=== PATIENT | male | born 1945 | race Caucasian/White ===

== ENCOUNTER 2016-05-14 17:41 | Observation (INO) | payer MEDICARE ==
[~2016-05-14] VITALS: Ht 172.7 cm; Wt 87.5 kg
[~2016-05-14 17:41] MED LIST: ACET-703 PO; ALBU0.08 NEB; ASPI81TA81 PO; ATOR20TA15 PO; FLUT1INH INH; IPRA0.02 NEB; LISI-515 PO; LORA1TAB12 PO; MAXZTAB PO; OXYGEN INH; PLAV75TA29 PO; VENTAER INH; VERA120T3 PO
[2016-05-14 17:44] VITALS: BP 125/70; PULSE 127; RESP 14; TEMP 98.4; O2SAT 97
--- NOTE | 2016-05-14 18:42 | RADRPT ---
EXAM DATE/TIME: 05/14/2016 18:22 [place] COMPARISON: CHEST SINGLE AP, January 20, 2016, 9:26. INDICATIONS : SOB MEDICAL HISTORY : Hypertension. Chronic obstructive pulmonary disease. Chest mass. SURGICAL HISTORY : None. ENCOUNTER: Initial ACUITY: 1 day PAIN SCORE: 0/10 LOCATION: chest FINDINGS: There is vague infiltrate in the right lung base. Left lung appears grossly clear. No significant eff usion suspected. Cardiac contours are satisfactory. CONCLUSION: Mild right base parenchymal opacity Vidal Fotre MD on May 14, 2016 at 18:40 Board Certified Radiologist. This report was verified electronically.
[2016-05-14 19:25] VITALS: BP 124/72; PULSE 103; RESP 18; O2SAT 95
[2016-05-14 19:30] VITALS: O2SAT 97
[2016-05-14] MEDS ORDERED: RESP: ALBUTEROL 2.5 MG/IPRATROPIUM 0.5 MG NEB (SCH) NEB ONE (19:30)
[2016-05-14] MEDS ORDERED: chlordiazePOXIDE 25 MG CAP PO ONE (19:30)
--- NOTE | 2016-05-14 19:47 | PD ---
HPI Chief Complaint: Respiratory Distress Time Seen by Provider: 19:26 Travel History International Travel<30 days: No Contact w/Intl Traveler<30days: No Traveled to known affect area: No History of Present Illness HPI This 71-year-old man, presents to the emergency department complaining of wanting detox. His primary care doctor's Dr. Rodgers. Is a history of drinking too much in the past. He states for the past month he's been drinking constantly. He states that he decided today to stop drinking because it was "too much". He called and spoke to his doctor Dr. Rodgers who referred him to the emergency department. He also has a history of COPD, uses oxygen at night, and has had some trouble breathing recently. He states his mood has been down. He feels like he's been more irritable with his . He has had fleeting thoughts of hurting himself. He has never been treated for any mental health problems in the past. He last drank alcohol this afternoon. He's been drinking liquor, but one quart per day, mostly rum. He also smokes tobacco. History Past Medical History Narrative Medical Alcoholism COPD Peripheral vascular disease, status post recent stenting with Dr. yeager Hypertension Hyperlipidemia Social History Alcohol Use: Yes (Approx. twice a week with dinner ) Tobacco Use: Yes (1.5 PPD) Allergies-Medications (Allergen,Severity, Reaction): Coded Allergies: No Known Allergies (Verified , 05/14/16) Reported Meds & Prescriptions Reported Meds & Active Scripts Active Plavix (Clopidogrel Bisulfate) 75 Mg Tab 75 Mg PO DAILY Reported [Oxygen] 2 Liter INH DAILY Tylenol Extra Strength (Acetaminophen) 500 Mg Tab 500 Mg PO Q4-6H PRN Ventolin Hfa 18 GM Inh (Albuterol Sulfate) 90 Mcg/Act Aer 2 Puff INH Q4-6H PRN Ipratropium Neb (Ipratropium [place]) 0.5 Mg/2.5 Ml Amp 0.5 Mg NEB Q6HR NEB Breo Ellipta Inh (Fluticasone/Vilanterol) 100-25 Mcg/Act Inh 1 Puff INH DAILY Use daily at the same time. Albuterol Neb (Albuterol Sulfate) 2.5 Mg/3 Ml Neb 2.5 Mg NEB Q4HR NEB While awake Lorazepam 1 Mg Tab 1 Mg PO DAILY PRN Lisinopril 20 Mg Tab 20 Mg PO DAILY Atorvastatin (Atorvastatin Calcium) 20 Mg Tab 20 Mg PO HS Aspir-81 (Aspirin) 81 Mg Tabdr Maxzide-25 (Triamterene-Hydrochlorothiazide) 37.5-25 Mg Tab 1 Tab PO DAILY Verapamil (Verapamil HCl) 120 Mg Tab 120 Mg PO BID Review of Systems Except as stated in HPI: all other systems reviewed are Neg Physical Exam Narrative GENERAL: Well-appearing 71-year-old man, little bit tremulous, no acute distress. SKIN: Warm and dry. HEAD: Atraumatic. Normocephalic. EYES: Pupils equal and round. No scleral icterus. No injection or drainage. ENT: No nasal bleeding or discharge. Mucous membranes pink and moist. NECK: Trachea midline. No JVD. CARDIOVASCULAR: Regular rate and rhythm. No murmur appreciated. RESPIRATORY: No accessory muscle use. Lungs are clear to auscultation. No respiratory distress. GASTROINTESTINAL: Abdomen soft, non-tender, nondistended. Hepatic and splenic margins not palpable. MUSCULOSKELETAL: No obvious deformities. No edema. NEUROLOGICAL: Awake and alert. No obvious cranial nerve deficits. Motor grossly within normal limits. Normal speech. PSYCHIATRIC: Appropriate mood and affect; insight and judgment normal. Data Data Last Documented VS Vital Signs Date Time Temp Pulse Resp B/P Pulse Ox O2 Delivery O2 Flow Rate FiO2 05/14/16 19:30 97 Nasal Cannula 2.00 05/14/16 19:25 103 18 124/72 05/14/16 17:44 98.4 Orders Electrocardiogram (05/14/16 18:00) Chest, Single Ap (05/14/16 18:00) Chlordiazepoxide (Librium) (05/14/16 19:30) Albuterol-Ipratropium Neb (Duoneb Neb) (05/14/16 19:30) Complete Blood Count With Diff (05/14/16 19:26) Comprehensive Metabolic Panel (05/14/16 19:26) Alcohol (Ethanol) (05/14/16 19:26) Iv Access Insert/Monitor (05/14/16 19:26) Admit Order (Ed Use Only) (05/14/16 ) [facility] Medical Decision Making Medical Screen Exam Complete: Yes Emergency Medical Condition: Yes Interpretation(s) My review of EKG: Sinus rhythm at a rate of 79 with marked sinus arrhythmia, normal axis, normal intervals, no definite evidence of acute ischemia. Chest x-ray: Mild right base parenchymal opacity. Differential Diagnosis Alcoholism, alcohol withdrawal, COPD, significant exacerbation, substance- induced mood disorder, depression, other Narrative Course Medical decision making INITIAL: 71-year-old man who presents to the emergency department complaining of daily alcohol use, desire to quit drinking, some worsening mood with fleeting suicidal thoughts, worsening COPD symptoms. Has not really been taking his medicine since she's been drinking. He is referred to the emergency department by his primary physician. Given that he uses oxygen at night, he would not be a candidate for detox at [facility]. Primary complaint seems to be desire to quit drinking. No history of psychiatric disease. His has mild withdrawal symptoms now. We'll give by mouth Librium. We'll also give him a DuoNeb. I don't see evidence of significant COPD exacerbation. We'll discuss with [facility] hospitalist, reassess. FINAL: Spoke with Dr. Amaro, with the [facility] admitting team. They'll plan on admitting patient for evaluation and treatment for COPD, with alcohol withdrawal, and try to arrange for outpatient treatment options. Diagnosis Primary Impression: Alcohol withdrawal Qualified Code: F10.230 - Alcohol withdrawal, uncomplicated Additional Impression: COPD exacerbation Noel Roach MD May 14, 2016 19:47
[2016-05-14 20:27] LABS: AUTOMATED NEUTROPHIL # 5.4 TH/MM3 (1.8-7.7); BASOPHIL # 0.1 TH/MM3 (0-0.2); BASOPHIL % 0.8 % (0.0-2.0); EOSINOPHIL # 0.1 TH/MM3 (0-0.4); EOSINOPHIL % 1.4 % (0.0-4.0); HEMATOCRIT 39.3 % (39.0-51.0); HEMO FLAGS DIFF FINAL; LYMPH % 23.6 % (9.0-44.0); MEAN CELL VOLUME 95.2 FL (80.0-100.0); MEAN CORPUSCULAR HEMOGLOBIN 32.7 PG (27.0-34.0); MEAN CORPUSCULAR HGB CONC 34.3 % (32.0-36.0); MONO % 9.6 % (0.0-8.0); NEUT % 64.6 % (16.0-70.0); PLATELET COUNT 198 TH/MM3 (150-450); RED BLOOD COUNT 4.13 MIL/MM3 (4.50-5.90); WHITE BLOOD COUNT 8.3 TH/MM3 (4.0-11.0)
[2016-05-14 20:37] LABS: ANION GAP 11 MEQ/L (5-15)
[2016-05-14 20:40] LABS: ALKALINE PHOSPHATASE 88 U/L (45-117); ALT (GPT) 52 U/L (12-78); AST (GOT) 59 U/L (15-37); BICARBONATE 25.2 MEQ/L (21.0-32.0); BLOOD UREA NITROGEN 21 MG/DL (7-18); CHLORIDE 103 MEQ/L (98-107); GLOMERULAR FILTRATION RATE 80 ML/MIN (>89); SODIUM (NA) 139 MEQ/L (136-145); TOTAL BILIRUBIN ADULT 0.3 MG/DL (0.2-1.0)
--- NOTE | 2016-05-14 21:28 | HHI.HP ---
HPI Service [facility] Hospitalists Primary Care Physician Ryley Rodgers MD Admission Diagnosis alcohol withdrawal, COPD Chief Complaint: Excess alcohol use, Anxiety with agitation, COPD, med noncompliance Travel History International Travel<30 Days: No Contact w/Intl Traveler <30 Da: No Traveled to Known Affected Are: No History of Present Illness This 71-year-old man, presents to the emergency department complaining of wanting inpatient detox. I spoke with his primary care doctor, Dr. Rodgers who was not aware of his going to the ER. Patient reports someone in Dr. Rodgers's office directed him to the ER. Patient has chronic history of alcohol abuse but had been in remission. He states for the past month he's been drinking constantly. He started drinking at least 1 quart of rum per day on approximately April 10. He states that he decided today to stop drinking because it was "too much". He noted that he had become more anxious and agitated especially toward his . He does not like it when he is his way and he reports that he loves his . He admits to being anxious about a spot he found on his upper chest and also about some bloody salt in the toilet paper approximately a month ago. He denies any robi blood in the stool or dark tarry stools. He also has a history of COPD, uses oxygen at night, and has had some trouble breathing recently. He has not been using his inhalers as directed. He states his mood has been down. He feels like he's been more irritable with his . He has had fleeting thoughts of hurting himself but has not developed any plan of any sort. I asked him about harming himself, he denies any intent to do so. He last drank alcohol this afternoon. He says he feels a little tremulous at times but no other symptoms. He also smokes tobacco. Review of Systems Constitutional: COMPLAINS OF: Fatigue, DENIES: Diaphoretic episodes, Fever, Weight gain, Weight loss, Chills, Dizziness, Change in appetite, Night Sweats Endocrine: DENIES: Heat/cold intolerance, Polydipsia, Polyuria, Polyphagia Eyes: DENIES: Blurred vision, Diplopia, Eye inflammation, Eye pain, Vision loss , Photosensitivity, Double Vision Ears, nose, mouth, throat: DENIES: Tinnitus, Hearing loss, Vertigo, Nasal discharge, Oral lesions, Throat pain, Hoarseness, Ear Pain, Running Nose, Epistaxis, Sinus Pain, Toothache, Odynophagia Respiratory: COMPLAINS OF: Wheezing, Shortness of breath, DENIES: Apneas, Cough, Snoring, Hemoptysis, Sputum production Cardiovascular: COMPLAINS OF: Dyspnea on Exertion, DENIES: Chest pain, Palpitations, Syncope, PND, Lower Extremity Edema, Orthopnea, Claudication Gastrointestinal: COMPLAINS OF: BRB per rectum, GERD, DENIES: Abdominal pain, Black stools, Bloody stools, Constipation, Diarrhea, Nausea, Reflux, Vomiting, Difficulty Swallowing, Anorexia, See HPI Musculoskeletal: COMPLAINS OF: Joint pain Hematologic/lymphatic: DENIES: Bruising, Lymphadenopathy Immunologic/allergic: DENIES: Eczema, Urticaria Neurologic: DENIES: Abnormal gait, Headache, Localized weakness, Paresthesias, Seizures, Speech Problems, Tremor, Poor Balance Psychiatric: COMPLAINS OF: Anxiety, Depression, Agitation, DENIES: Confusion, Mood changes, Hallucinations, Homicidal Ideation, Delusions, History of Bipolar , History of Schizophrenia Past Family Social History Past Medical History Alcohol dependence Anxiety Atherosclerosis of aorta Peripheral arterial disease Reaves's esophagus COPD Chronic respiratory failure Lumbar degenerative disc disease GERD Hypertension Hyperlipidemia Hyperthyroidism Emphysema Past Surgical History Colonoscopy in 2006 revealed 4 polyps and some internal hemorrhoids EGD done in 2006 revealed gastritis and esophagitis Bilateral total hip replacement Angioplasty with atherectomy bilateral SFA Balloon angioplasty of left SFA and ORA in March 2016 Stenting left common iliac artery and right common iliac artery March 2016 Reported Medications These are reported meds but he has not been compliant over the last few weeks : [Oxygen] 2 Liter INH DAILY Tylenol Extra Strength (Acetaminophen) 500 Mg Tab 500 Mg PO Q4-6H PRN Ventolin Hfa 18 GM Inh (Albuterol Sulfate) 90 Mcg/Act Aer 2 Puff INH Q4-6H PRN Ipratropium Neb (Ipratropium [place]) 0.5 Mg/2.5 Ml Amp 0.5 Mg NEB Q6HR NEB Breo Ellipta Inh (Fluticasone/Vilanterol) 100-25 Mcg/Act Inh 1 Puff INH DAILY Use daily at the same time. Albuterol Neb (Albuterol Sulfate) 2.5 Mg/3 Ml Neb 2.5 Mg NEB Q4HR NEB While awake Lorazepam 1 Mg Tab 1 Mg PO DAILY PRN Lisinopril 20 Mg Tab 20 Mg PO DAILY Atorvastatin (Atorvastatin Calcium) 20 Mg Tab 20 Mg PO HS Aspir-81 (Aspirin) 81 Mg Tabdr Maxzide-25 (Triamterene-Hydrochlorothiazide) 37.5-25 Mg Tab 1 Tab PO DAILY Verapamil (Verapamil HCl) 120 Mg Tab 120 Mg PO BID Allergies: Coded Allergies: No Known Allergies (Verified , 05/14/16) Family History Noncontributory Social History Heavy alcohol use history over the last month drinking 1 quart of rum per day Smokes cigarettes one pack per day which he has done for 50 years Lives with his Retired from [employer] after 40 years Easily from [place], he moved to [place] in 1985 Physical Exam Vital Signs Vital Signs Date Time Temp Pulse Resp B/P Pulse Ox O2 Delivery O2 Flow Rate FiO2 05/14/16 19:30 97 Nasal Cannula 2.00 05/14/16 19:25 103 18 124/72 95 Room Air 05/14/16 17:44 98.4 127 14 125/70 97 Room Air Physical Exam GENERAL: This is a well-nourished, well-developed patient, in no apparent distress. Slightly anxious. Alert and oriented. No obvious tremor. SKIN: No rashes, ecchymoses or lesions. Cool and dry. HEAD: Atraumatic. Normocephalic. No temporal or scalp tenderness. EYES: Pupils equal round and reactive. Extraocular motions intact. No scleral icterus. No injection or drainage. ENT: Nose without bleeding, purulent drainage or septal hematoma. Throat without erythema, tonsillar hypertrophy or exudate. Uvula midline. Airway patent. NECK: Trachea midline. No JVD or lymphadenopathy. Supple, nontender, no meningeal signs. CARDIOVASCULAR: Regular rate and rhythm without murmurs, gallops, or rubs. RESPIRATORY: Clear to auscultation with slightly prolonged expiratory phase and few wheezes at the bases. Breath sounds equal bilaterally. GASTROINTESTINAL: Abdomen soft, non-tender, nondistended. No hepato-splenomegaly , or palpable masses. No guarding. Bowel sounds normal. MUSCULOSKELETAL: Extremities without clubbing, cyanosis, or edema. No joint tenderness, effusion, or edema noted. No calf tenderness. NEUROLOGICAL: Awake and alert. Cranial nerves II through XII intact. Motor and sensory grossly within normal limits. Five out of 5 muscle strength in all muscle groups. Normal speech. Laboratory Laboratory Tests Test 05/14/16 19:45 White Blood Count 8.3 Red Blood Count 4.13 Hemoglobin 13.5 Hematocrit 39.3 Mean Corpuscular Volume 95.2 Mean Corpuscular Hemoglobin 32.7 Mean Corpuscular Hemoglobin 34.3 Concent Red Cell Distribution Width 15.0 Platelet Count 198 Mean Platelet Volume 7.2 Neutrophils (%) (Auto) 64.6 Lymphocytes (%) (Auto) 23.6 Monocytes (%) (Auto) 9.6 Eosinophils (%) (Auto) 1.4 Basophils (%) (Auto) 0.8 Neutrophils # (Auto) 5.4 Lymphocytes # (Auto) 2.0 Monocytes # (Auto) 0.8 Eosinophils # (Auto) 0.1 Basophils # (Auto) 0.1 CBC Comment DIFF FINAL Differential Comment Sodium Level 139 Potassium Level 4.0 Chloride Level 103 Carbon Dioxide Level 25.2 Anion Gap 11 Blood Urea Nitrogen 21 Creatinine 0.93 Estimat Glomerular Filtration 80 Rate Random Glucose 89 Calcium Level 8.6 Total Bilirubin 0.3 Aspartate Amino Transf 59 (AST/SGOT) Alanine Aminotransferase 52 (ALT/SGPT) Alkaline Phosphatase 88 Total Protein 7.5 Albumin 4.0 Ethyl Alcohol Level 295 Result Diagram: 05/14/16194405/14/161944 Imaging Last 72 hours Impressions Chest X-Ray 05/14/16 1800 Signed Impressions: Service Date/Time: April 18:22 - CONCLUSION: Mild right base parenchymal opacity Vidal Forte MD Assessment and Plan Problem List: (1) Alcohol intoxication Status: Acute Plan: Blood alcohol level 295. No signs of active withdrawal but certainly is at risk as he has had withdrawal in the past. We'll initiate alcohol withdrawal protocol (2) COPD (chronic obstructive pulmonary disease) Status: Chronic Plan: Mild exacerbation likely associated with medication noncompliance. Duo nebs, steroids, supplemental oxygen. We'll add anabiotic given the chest x- ray finding. Of clinical pneumonia at this point. With his heavy drinking and GERD, however, he may have had aspiration at some point. (3) Hyperlipemia Status: Chronic Plan: Continue medication. (4) Hypertension Status: Chronic Plan: Blood pressure okay here. Continue to monitor. Initiate medication as needed. (5) Anxiety Status: Chronic Plan: Provide Ativan as needed. Would likely benefit from SSRI and psychiatric intervention as an outpatient. (6) PAD (peripheral artery disease) Status: Chronic Plan: Resume medication. Strongly encouraged him to stop smoking. Provide NicoDerm. Code Status Full Discussed Condition With Patient and ER physician Problem Qualifiers (1) Hyperlipemia: Qualified Code: E78.00 - Pure hypercholesterolemia (2) Hypertension: Qualified Code: I10 - Essential hypertension Jac Amaro PhD May 14, 2016 21:28
[2016-05-14 21:57] VITALS: BP 109/63; PULSE 110; RESP 18; O2SAT 96
[2016-05-14] MEDS ORDERED: THIAMINE HCL 200 MG/2 ML VIAL IM ONE (22:00)
[2016-05-14] MEDS: LORazepam 2 MG/ML VIAL IV PUSH PRN (22:03)
[2016-05-14] MEDS: methylPREDNISolone SOD SUCC 40 MG/1 ML VIAL IV PUSH SCH (23:16)
[2016-05-14] MEDS: SODIUM CHLOR 0.9% 1000 ML INJ 1,000 ML IV SCH (23:17)
[2016-05-14 23:38] VITALS: BP 96/50; PULSE 119
[2016-05-14] MEDS: DOXYCYCLINE HYCLATE 100 MG CAP PO SCH (23:55)
[2016-05-15] VITALS (14 sets, daily range): BP systolic 135–183; BP diastolic 71–106; PULSE 96–125; RESP 17–24; TEMP 97.1–98.3; O2SAT 92–96
[2016-05-15] MEDS: RESP: ALBUTEROL 2.5 MG/IPRATROPIUM 0.5 MG NEB (PRN) NEB ×6 (02:00→23:27)
[2016-05-15] MEDS: CLOPIDOGREL 75 MG TAB PO SCH (07:28)
[2016-05-15] MEDS: LISINOPRIL 20 MG TAB PO SCH (07:28)
[2016-05-15] MEDS: NICOTINE 21 MG/24 HR PATCH TD SCH (07:29)
--- NOTE | 2016-05-15 08:34 | HHI.PR ---
Subjective Remarks Pt very shaky this morning. He states that over the last month he has been drinking at least a bottle of rum per day He states that he gets very shakey in the morning but it improves once he starts drinking He denies any cough or SOB. He states that occasionally he has reflux Denies any dysphagia, fevers/chills Objective Vitals Vital Signs Date Time Temp Pulse Resp B/P Pulse Ox O2 Delivery O2 Flow Rate FiO2 05/15/16 03:31 97.2 113 20 151/71 95 05/15/16 01:33 97.1 97 20 135/77 94 05/15/16 01:09 97 Nasal Cannula 2 05/14/16 23:38 119 96/50 05/14/16 21:57 110 18 109/63 96 05/14/16 19:30 97 Nasal Cannula 2.00 05/14/16 19:25 103 18 124/72 95 Room Air 05/14/16 17:44 98.4 127 14 125/70 97 Room Air Result Diagram: 05/14/16194405/14/161944 Other Results Laboratory Tests Test 05/14/16 19:45 White Blood Count 8.3 TH/MM3 Red Blood Count 4.13 MIL/MM3 Hemoglobin 13.5 GM/DL Hematocrit 39.3 % Mean Corpuscular Volume 95.2 FL Mean Corpuscular Hemoglobin 32.7 PG Mean Corpuscular Hemoglobin 34.3 % Concent Red Cell Distribution Width 15.0 % Platelet Count 198 TH/MM3 Mean Platelet Volume 7.2 FL Neutrophils (%) (Auto) 64.6 % Lymphocytes (%) (Auto) 23.6 % Monocytes (%) (Auto) 9.6 % Eosinophils (%) (Auto) 1.4 % Basophils (%) (Auto) 0.8 % Neutrophils # (Auto) 5.4 TH/MM3 Lymphocytes # (Auto) 2.0 TH/MM3 Monocytes # (Auto) 0.8 TH/MM3 Eosinophils # (Auto) 0.1 TH/MM3 Basophils # (Auto) 0.1 TH/MM3 CBC Comment DIFF FINAL Differential Comment Sodium Level 139 MEQ/L Potassium Level 4.0 MEQ/L Chloride Level 103 MEQ/L Carbon Dioxide Level 25.2 MEQ/L Anion Gap 11 MEQ/L Blood Urea Nitrogen 21 MG/DL Creatinine 0.93 MG/DL Estimat Glomerular Filtration 80 ML/MIN Rate Random Glucose 89 MG/DL Calcium Level 8.6 MG/DL Total Bilirubin 0.3 MG/DL Aspartate Amino Transf 59 U/L (AST/SGOT) Alanine Aminotransferase 52 U/L (ALT/SGPT) Alkaline Phosphatase 88 U/L Total Protein 7.5 GM/DL Albumin 4.0 GM/DL Ethyl Alcohol Level 295 MG/DL Imaging Last 72 hours Impressions Chest X-Ray 05/14/16 1800 Signed Impressions: Service Date/Time: April 18:22 - CONCLUSION: Mild right base parenchymal opacity Vidal Forte MD Objective Remarks General: Very tremulous this morning Cardiac: Regular, tachy Chest: CTA Abd: +BS, soft ND/NT Ext: No edema A/P Problem List: (1) Alcohol intoxication Status: Acute Plan: - Pt presented to the ER wanting inpatient detox. - Blood alcohol level 295 at admission. - No signs of active withdrawal but certainly is at risk as he has had withdrawal in the past. - Librium 25mg po TID - Ativan PRN (2) COPD (chronic obstructive pulmonary disease) Status: Chronic Plan: - Mild exacerbation likely associated with medication noncompliance. - Duo nebs - Solu-Medrol - Breo Elipta - Supplemental oxygen. - CXR (05/14) --> Mild right base parenchymal opacity. - Pt was started on Doxycycline at admission secondary to chest x-ray finding and with his heavy drinking and GERD, he may have had aspiration at some point. (3) Hyperlipemia Status: Chronic Plan: - Continue medication. (4) Hypertension Status: Chronic Plan: Blood pressure okay here. Continue to monitor. Initiate medication as needed. (5) Anxiety Status: Chronic Plan: Provide Ativan as needed. Would likely benefit from SSRI and psychiatric intervention as an outpatient. (6) PAD (peripheral artery disease) Status: Chronic Plan: Resume medication. Strongly encouraged him to stop smoking. Provide NicoDerm. Assessment and Plan Patient examined. Assessment and plan formulated with Ana Norwood PA-C. I agree with the above. etoh abuse and now etoh/wd copd with mild exacerbation right lung inflitrate and possible pna Problem Qualifiers (1) Hyperlipemia: Qualified Code: E78.00 - Pure hypercholesterolemia (2) Hypertension: Qualified Code: I10 - Essential hypertension Ana Norwood May 15, 2016 08:34 Milan Bazzi MD May 15, 2016 20:42
[2016-05-15] MEDS: methylPREDNISolone SOD SUCC 40 MG/1 ML VIAL IV PUSH SCH ×2 (08:40→21:46)
[2016-05-15] MEDS: LORazepam 2 MG/ML VIAL IV PUSH PRN (08:40)
[2016-05-15] MEDS: REMOVE OLD NICODERM (NICOTINE) PATCH TD SCH (09:00)
[2016-05-15] MEDS ORDERED: chlordiazePOXIDE 25 MG CAP PO SCH (09:00)
[2016-05-15] MEDS: THIAMINE HCL 100 MG TAB PO SCH (09:14)
[2016-05-15] MEDS: MULTIVITAMIN TAB PO SCH (09:14)
[2016-05-15] MEDS: DOXYCYCLINE HYCLATE 100 MG CAP PO SCH (09:14)
[2016-05-15] MEDS: SODIUM CHLOR 0.9% 1000 ML INJ 1,000 ML IV SCH (09:14)
[2016-05-15] MEDS: FOLIC ACID 1 MG TAB PO SCH (09:14)
[2016-05-15] MEDS: FLUTICASONE 100 MCG/VILANTEROL 25 MCG INHALER INH SCH (09:14)
[2016-05-15] MEDS ORDERED: cloNIDine HCL 0.1 MG TAB PO PRN (11:30)
[2016-05-15] MEDS: chlordiazePOXIDE 25 MG CAP PO SCH ×2 (11:45→18:24)
--- NOTE | 2016-05-15 16:32 | EKG ---
Date Performed: 05/14/2016 Time Performed: 18:04:59 PTAGE: 71 years EKG: Sinus rhythm WITH MARKED SINUS ARRHYTHMIA BORDERLINE ECG PREVIOUS TRACING : 04/09/2016 07.33 Compared to prior tracing no significant change DOCTOR: Grady Sharma Interpretating Date/Time 05/15/2016 16:30:27
[2016-05-15] MEDS: cloNIDine HCL 0.1 MG TAB PO PRN ×2 (17:24→21:46)
[2016-05-15] MEDS: ATORVASTATIN 20 MG TAB PO SCH (21:46)
[2016-05-16] VITALS (9 sets, daily range): BP systolic 133–164; BP diastolic 77–97; PULSE 90–120; RESP 19; TEMP 96.9–98.4; O2SAT 94–98
[2016-05-16] MEDS: chlordiazePOXIDE 25 MG CAP PO SCH ×4 (01:03→18:16)
[2016-05-16] MEDS: RESP: ALBUTEROL 2.5 MG/IPRATROPIUM 0.5 MG NEB (PRN) NEB ×4 (03:42→16:25)
[2016-05-16] MEDS: MULTIVITAMIN TAB PO SCH (08:40)
[2016-05-16] MEDS: THIAMINE HCL 100 MG TAB PO SCH (08:40)
[2016-05-16] MEDS: FOLIC ACID 1 MG TAB PO SCH (08:41)
[2016-05-16] MEDS: LEVOFLOXACIN 500 MG TAB PO SCH (08:41)
[2016-05-16] MEDS: CLOPIDOGREL 75 MG TAB PO SCH (08:41)
[2016-05-16] MEDS: LISINOPRIL 20 MG TAB PO SCH (08:41)
[2016-05-16] MEDS: NICOTINE 21 MG/24 HR PATCH TD SCH (08:41)
[2016-05-16] MEDS: methylPREDNISolone SOD SUCC 40 MG/1 ML VIAL IV PUSH SCH (08:44)
[2016-05-16] MEDS: FLUTICASONE 100 MCG/VILANTEROL 25 MCG INHALER INH SCH (08:46)
[2016-05-16] MEDS: REMOVE OLD NICODERM (NICOTINE) PATCH TD SCH (08:53)
--- NOTE | 2016-05-16 11:04 | HHI.PR ---
Subjective Remarks doing ok. still tremulous. eating food. getting up to bathroom Objective Vitals heart reg lung cta abd s/nt ext no edema tremulous Vital Signs Date Time Temp Pulse Resp B/P Pulse Ox O2 Delivery O2 Flow Rate FiO2 05/16/16 08:54 97.7 103 140/77 96 05/16/16 07:55 98 Nasal Cannula 2.00 05/16/16 04:00 96.9 102 19 158/77 95 05/16/16 00:00 98.3 105 19 164/97 98 05/15/16 20:49 96 Nasal Cannula 2.00 05/15/16 20:02 96 05/15/16 20:00 97.7 107 17 169/85 96 05/15/16 18:48 115 05/15/16 18:26 160/90 05/15/16 16:36 98.1 115 24 177/101 92 05/15/16 12:35 98.0 122 22 179/98 92 05/15/16 12:24 143/90 05/15/16 11:44 182/99 05/15/16 05/15/16 05/16/16 15:00 23:00 07:00 Intake Total 480 ml Output Total 2250 ml 850 ml Balance -1770 ml -850 ml Intake Oral 480 ml Output Urine Total 2250 ml 850 ml # Bowel Movements 1 Result Diagram: 05/14/16194405/14/161944 Imaging Last 72 hours Impressions Chest X-Ray 05/14/16 1800 Signed Impressions: Service Date/Time: April 18:22 - CONCLUSION: Mild right base parenchymal opacity Vidal Forte MD A/P Problem List: (1) Alcohol intoxication Status: Acute Plan: - Pt presented to the ER wanting inpatient detox. - He is currently going through etoh w/d cont librium and prn ativan. taper starting in AM. prn clonidine for bp plan for d/c home Wednesday. (2) COPD (chronic obstructive pulmonary disease) Status: Acute Plan: - mild exacerbation - abx for right lung infiltrate/pna...?aspiration. cont nebs/wean steroids. o2 (3) Hyperlipemia Status: Chronic Plan: - Continue medication. (4) Hypertension Status: Chronic Plan: Blood pressure okay here. Continue to monitor. Initiate medication as needed. (5) Anxiety Status: Chronic Plan: Provide Ativan as needed. Would likely benefit from SSRI and psychiatric intervention as an outpatient. (6) PAD (peripheral artery disease) Status: Chronic Plan: Resume medication. Strongly encouraged him to stop smoking. Provide NicoDerm. Problem Qualifiers (1) Hyperlipemia: Qualified Code: E78.00 - Pure hypercholesterolemia (2) Hypertension: Qualified Code: I10 - Essential hypertension Milan Bazzi MD May 16, 2016 11:04
[2016-05-16] MEDS: predniSONE 20 MG TAB PO SCH (21:07)
[2016-05-16] MEDS: ATORVASTATIN 20 MG TAB PO SCH (21:07)
[2016-05-17] VITALS (7 sets, daily range): BP systolic 128–162; BP diastolic 78–88; PULSE 77–108; RESP 19–28; TEMP 98–98.3; O2SAT 93–99
[2016-05-17] MEDS: chlordiazePOXIDE 25 MG CAP PO SCH ×4 (01:31→19:04)
[2016-05-17] MEDS: RESP: ALBUTEROL 2.5 MG/IPRATROPIUM 0.5 MG NEB (PRN) NEB ×4 (03:02→22:13)
[2016-05-17] MEDS: REMOVE OLD NICODERM (NICOTINE) PATCH TD SCH (09:00)
[2016-05-17] MEDS: THIAMINE HCL 100 MG TAB PO SCH (09:13)
[2016-05-17] MEDS: NICOTINE 21 MG/24 HR PATCH TD SCH (09:13)
[2016-05-17] MEDS: MULTIVITAMIN TAB PO SCH (09:14)
[2016-05-17] MEDS: FOLIC ACID 1 MG TAB PO SCH (09:14)
[2016-05-17] MEDS: LISINOPRIL 20 MG TAB PO SCH (09:14)
[2016-05-17] MEDS: CLOPIDOGREL 75 MG TAB PO SCH (09:14)
[2016-05-17] MEDS: predniSONE 20 MG TAB PO SCH ×2 (09:15→21:17)
[2016-05-17] MEDS: FLUTICASONE 100 MCG/VILANTEROL 25 MCG INHALER INH SCH (09:15)
[2016-05-17] MEDS: LEVOFLOXACIN 500 MG TAB PO SCH (09:15)
--- NOTE | 2016-05-17 13:08 | HHI.PR ---
Subjective Remarks improving. needs to ambulate. Objective Vitals heart reg lung cta abd sn/t ext no edema mild tremors Vital Signs Date Time Temp Pulse Resp B/P Pulse Ox O2 Delivery O2 Flow Rate FiO2 05/17/16 08:00 83 05/17/16 07:51 Nasal Cannula 2.00 05/17/16 07:37 98.0 88 19 162/80 93 05/17/16 03:34 98.2 77 19 148/80 93 05/17/16 02:55 98 Nasal Cannula 2.00 05/16/16 23:30 98.2 98 19 133/88 95 05/16/16 22:29 90 05/16/16 19:06 98.4 120 19 136/78 94 05/16/16 16:37 97.8 100 19 136/86 94 05/16/16 15:21 93 Result Diagram: 05/14/16194405/14/161944 Imaging Last 72 hours Impressions Chest X-Ray 05/14/16 1800 Signed Impressions: Service Date/Time: April 18:22 - CONCLUSION: Mild right base parenchymal opacity Vidal Forte MD A/P Problem List: (1) Alcohol intoxication Status: Acute Plan: - Pt presented to the ER wanting inpatient detox. - He is currently going through etoh w/d wean librium and prn ativan. start taper and d/c home in AM if hr controlled Pt eval no etoh discussed prn clonidine for bp (2) COPD (chronic obstructive pulmonary disease) Status: Acute Plan: - mild exacerbation - abx for right lung infiltrate/pna...?aspiration. cont nebs/wean steroids. o2 (3) Hyperlipemia Status: Chronic Plan: - Continue medication. (4) Hypertension Status: Chronic Plan: Blood pressure okay here. Continue to monitor. Initiate medication as needed. (5) Anxiety Status: Chronic Plan: Provide Ativan as needed. Would likely benefit from SSRI and psychiatric intervention as an outpatient. (6) PAD (peripheral artery disease) Status: Chronic Plan: Resume medication. Strongly encouraged him to stop smoking. Provide NicoDerm. Problem Qualifiers (1) Hyperlipemia: Qualified Code: E78.00 - Pure hypercholesterolemia (2) Hypertension: Qualified Code: I10 - Essential hypertension Milan Bazzi MD May 17, 2016 13:08
[2016-05-17] MEDS: ATORVASTATIN 20 MG TAB PO SCH (21:17)
[2016-05-18] VITALS (7 sets, daily range): BP systolic 120–162; BP diastolic 59–92; PULSE 86–109; RESP 18–20; TEMP 97.5–98.8; O2SAT 94–99
[2016-05-18] MEDS: RESP: ALBUTEROL 2.5 MG/IPRATROPIUM 0.5 MG NEB (PRN) NEB (04:04)
[2016-05-18] MEDS: LEVOFLOXACIN 500 MG TAB PO SCH (08:08)
[2016-05-18] MEDS: THIAMINE HCL 100 MG TAB PO SCH (08:08)
[2016-05-18] MEDS: LISINOPRIL 20 MG TAB PO SCH (08:08)
[2016-05-18] MEDS: MULTIVITAMIN TAB PO SCH (08:08)
[2016-05-18] MEDS: CLOPIDOGREL 75 MG TAB PO SCH (08:08)
[2016-05-18] MEDS: FOLIC ACID 1 MG TAB PO SCH (08:08)
[2016-05-18] MEDS: predniSONE 20 MG TAB PO SCH (08:08)
[2016-05-18] MEDS: NICOTINE 21 MG/24 HR PATCH TD SCH (08:09)
[2016-05-18] MEDS: REMOVE OLD NICODERM (NICOTINE) PATCH TD SCH (08:09)
[2016-05-18] MEDS: FLUTICASONE 100 MCG/VILANTEROL 25 MCG INHALER INH SCH (08:10)
[2016-05-18] MEDS ORDERED: chlordiazePOXIDE 25 MG CAP PO SCH (09:00)
[2016-05-18] MEDS ORDERED: PRED20 PO (12:12)
[2016-05-18] MEDS ORDERED: LEVA500T PO (12:12)
[2016-05-18] MEDS ORDERED: FOLI1TAB4 PO (12:12)
[2016-05-18] MEDS ORDERED: LORA-474 PO (12:12)
[2016-05-18] MEDS ORDERED: THERTAB15 PO (12:12)
[2016-05-18] MEDS ORDERED: LEXA10TA PO (12:21)
--- NOTE | 2016-05-18 12:29 | HHI.DS ---
Discharge Summary Admission Date May 14, 2016 at 19:58 Admitting Diagnosis alcohol withdrawal, COPD (1) Alcohol intoxication Diagnosis: Principal (2) COPD (chronic obstructive pulmonary disease) Diagnosis: Principal (3) Hyperlipemia Diagnosis: Secondary (4) Hypertension Diagnosis: Secondary (5) Anxiety Diagnosis: Secondary (6) PAD (peripheral artery disease) Diagnosis: Secondary Brief History This 71-year-old man, presents to the emergency department complaining of wanting inpatient detox. I spoke with his primary care doctor, Dr. Rodgers who was not aware of his going to the ER. Patient reports someone in Dr. Rodgers's office directed him to the ER. Patient has chronic history of alcohol abuse but had been in remission. He states for the past month he's been drinking constantly. He started drinking at least 1 quart of rum per day on approximately April 10. He states that he decided today to stop drinking because it was "too much". He noted that he had become more anxious and agitated especially toward his . He does not like it when he is his way and he reports that he loves his . He admits to being anxious about a spot he found on his upper chest and also about some bloody salt in the toilet paper approximately a month ago. He denies any robi blood in the stool or dark tarry stools. He also has a history of COPD, uses oxygen at night, and has had some trouble breathing recently. He has not been using his inhalers as directed. He states his mood has been down. He feels like he's been more irritable with his . He has had fleeting thoughts of hurting himself but has not developed any plan of any sort. I asked him about harming himself, he denies any intent to do so. He last drank alcohol this afternoon. He says he feels a little tremulous at times but no other symptoms. He also smokes tobacco. CBC/BMP: 05/14/16194405/14/161944 Imaging Last Impressions Chest X-Ray 05/14/16 1800 Signed Impressions: Service Date/Time: April 18:22 - CONCLUSION: Mild right base parenchymal opacity Vidal Forte MD PE at Discharge GENERAL: This is a well-nourished, well-developed patient, in no apparent distress. CARDIOVASCULAR: Regular rate and rhythm without murmurs, gallops, or rubs. RESPIRATORY: Clear to auscultation. Breath sounds equal bilaterally. No wheezes , rales, or rhonchi. GASTROINTESTINAL: Abdomen soft, non-tender, nondistended. Normal active bowel sounds MUSCULOSKELETAL: Extremities without clubbing, cyanosis, or edema. NEURO: Alert & Oriented x4 to person, place, time, situation. Moves all ext x4 Hospital Course (1) Alcohol intoxication Status: Acute Plan: - Pt presented to the ER wanting inpatient detox. - Pt was treated with scheduled librium which was tapered and prn ativan - Pt reevaluated by Dr. Zaheer Murcia DO on 05/18/16 - Pt with mild tremulous arms, per nursing much improved from admission - Pt adamant that he wants discharge to home today. - Case d/w CP Case Mgmt & will arrange outpt f/u with [facility] for outpt alcohol detox program - will discharge home with a small supply of ativan for withdrawal symptoms, #10 (2) COPD (chronic obstructive pulmonary disease) Status: Acute Plan: - mild exacerbation - complete 5d course of PO levaquin at home - complete prednisone taper at home - continue prn O2, pt has O2 set up at home and wears it at night. - Pt's oxygen level with O2 removed was 96% (3) Hyperlipemia Status: Chronic Plan: - Continue medication. (4) Hypertension Status: Chronic Plan: Blood pressure okay here. Continue to monitor. Initiate medication as needed. (5) Anxiety - start lexapro 10mg daily - ativan prn - f/u with [facility] (6) PAD (peripheral artery disease) Status: Chronic Plan: Resume medication. Strongly encouraged him to stop smoking. Provide NicoDerm. Pt Condition on Discharge: Stable Discharge Disposition: Discharge Home Discharge Instructions DIET: Follow Instructions for: Heart Healthy Diet Activities you can perform: Regular-No Restrictions Follow up Referrals: PCP Follow-up - [address] Ryley Rodgers Psychiatry Adult with [facility] New Medications: Escitalopram (Lexapro) 10 Mg Tab 10 MG PO DAILY depression #30 Ref 0 TAB Lorazepam (Ativan) 1 Mg Tab 1 MG PO Q6H PRN ANXIETY AND/OR AGITATION #10 Ref 0 TAB Folic Acid (Folate) 1 Mg Tab 1 MG PO DAILY etoh #30 Ref 0 TAB Levofloxacin (Levaquin) 500 Mg Tab 500 MG PO DAILY copd #2 Ref 0 TAB Multiple Vitamin (Thera/Beta-Carotene) 1 Tab Tab 1 TAB PO DAILY etoh #30 Ref 0 TAB Prednisone (Prednisone) 20 Mg Tab 20 MG PO BID one tab bid x 3d, then one tab daily x 3d, then 1/2 tab daily x 3d , then stop copd #11 TAB Continued Medications: Acetaminophen (Tylenol Extra Strength) 500 Mg Tab 500 MG PO Q4-6H PRN PAIN Ref 0 TAB Albuterol 18 GM Inh (Ventolin Hfa 18 GM Inh) 90 Mcg/Act Aer 2 PUFF INH Q4-6H PRN SHORTNESS OF BREATH #1 Ref 0 INHALER Albuterol Neb (Albuterol Neb) 2.5 Mg/3 Ml Neb 2.5 MG NEB Q4HR NEB While awake Breathing Treatment #60 Ref [address] (Aspir-81) 81 Mg Tabdr Atorvastatin (Atorvastatin) 20 Mg Tab 20 MG PO HS Cholesterol Management #30 Ref 0 TAB Clopidogrel (Plavix) 75 Mg Tab 75 MG PO DAILY pad #30 Ref 11 TAB Fluticasone-Vilanterol Inh (Breo Ellipta Inh) 100-25 Mcg/Act Inh 1 PUFF INH DAILY Use daily at the same time. #1 Ref 0 INHALER Ipratropium Neb (Ipratropium Neb) 0.5 Mg/2.5 Ml Amp 0.5 MG NEB Q6HR NEB Breathing Treatment Ref 0 NEBULE Lisinopril (Lisinopril) 20 Mg Tab 20 MG PO DAILY #30 Ref 0 TAB Lorazepam (Lorazepam) 1 Mg Tab 1 MG PO DAILY PRN ANXIETY Ref 0 TAB Triamterene-Hydrochlorothiazide (Maxzide-25) 37.5-25 Mg Tab 1 TAB PO DAILY #30 Ref 0 TAB Verapamil (Verapamil) 120 Mg Tab 120 MG PO BID #60 Ref 0 TAB ([Oxygen]) 2 LITER INH DAILY Zaheer Murcia DO May 18, 2016 12:29
--- NOTE | 2016-05-18 12:30 | HHI.DCPOC ---
Discharge Care Plan Diagnosis: (1) COPD (chronic obstructive pulmonary disease) (2) Alcohol withdrawal Goals to Promote Your Health * To prevent worsening of your condition and complications * To maintain your health at the optimal level Directions to Meet Your Goals Take your medications as prescribed Follow your dietary instruction Follow activity as directed Keep your appointments as scheduled Take your immunizations and boosters as scheduled If your symptoms worsen call your PCP, if no PCP go to Urgent Care Center or Emergency Room Smoking is Dangerous to Your Health. Avoid second hand smoke Call the 24-hour hour crisis hotline for domestic abuse at Zaheer Murcia DO May 18, 2016 12:30
== END 2016-05-18 14:59 | disposition home or self-care (01) ==
LOC: NEPC 17:41 → NEDA 19:58 → NEPFCDU 05-15 01:30
PROVIDERS: ADMIT Hospitalist; ATTEND Hospitalist
DX: F10.229 Alcohol dependence with intoxication, unspecified (principal); Y90.8 Blood alcohol level of 240 mg/100 ml or more; J44.1 Chronic obstructive pulmonary disease with (acute) exacerbation; I10 Essential (primary) hypertension; F41.9 Anxiety disorder, unspecified; Z91.14 Patient's other noncompliance with medication regimen; I70.0 Atherosclerosis of aorta; I73.9 Peripheral vascular disease, unspecified; J96.10 Chronic respiratory failure, unspecified whether with hypoxia or hypercapnia; F17.210 Nicotine dependence, cigarettes, uncomplicated; E78.5 Hyperlipidemia, unspecified; Z99.81 Dependence on supplemental oxygen
CPT/HCPCS: 71010; 80053; 80320; 85025; 93005; 94640; 94664; 97163; 99285; G0378; G8987; G8988; J2060; J2920; J3411; J7030; J7512

== ENCOUNTER 2016-06-17 11:55 | Inpatient (IN) | payer MEDICARE ==
[~2016-06-17] VITALS: Ht 172.7 cm; Wt 86.9 kg
[~2016-06-17 11:55] MED LIST changes: +FOLI1TAB4 PO; +LEVA500T PO; +LEXA10TA PO; +LORA-474 PO; +PRED20 PO; +THERTAB15 PO
[2016-06-17] MEDS ORDERED: SODIUM CHLOR 0.9% 1000 ML INJ 1,000 ML IV SCH ×2 (12:08→14:15)
[2016-06-17 12:15] VITALS: BP 88/50; PULSE 83; RESP 18; TEMP 98.2; O2SAT 96
--- NOTE | 2016-06-17 12:15 | PD ---
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 The patient states he was seen for routine clinic follow-up by Dr. Yeager today for his bilateral common iliac artery stenting done in March and his blood pressure was low so they brought him here for evaluation. The patient states that for the past 5 days he has had chills, "shakiness" and slight lightheadedness. States that 5 days ago Wednesday he did accidentally take his blood pressure medication twice in one evening because he forgot that he had already taken it. States that he in turn skipped his blood pressure medication on Wednesday. States that since then he has been taking his medication per usual. States that 5 days ago he had some mild increase in shortness of breath, states that since then he is short of breath but he feels he is not more short of breath than usual. Denies fever, chest pain, nausea, vomiting, abdominal pain, dizziness, numbness or tingling, weakness. States he has had some increased urinary frequency over the past 2 days. He also mentions that he's had a pruritic rash on his chest for about 3 weeks that he has been applying over the counter cream with improvement. No other complaints. PCP Dr. Rodgers. PFS Past Medical History Hx Anticoagulant Therapy: Yes Arthritis: Yes Asthma: No Autoimmune Disease: No Blood Disorders: No Anxiety: Yes Depression: No Heart Rhythm Problems: No Cancer: Yes (SKIN CA) Cardiovascular Problems: Yes High Cholesterol: Yes Chemotherapy: No Chest Pain: No Congestive Heart Failure: No COPD: Yes (on 2L NC at home.) Cerebrovascular Accident: No Diabetes: No Diminished Hearing: No Endocrine: No Gastrointestinal Disorders: No GERD: Yes Glaucoma: No Genitourinary: No Headaches: No Hepatitis: No Hiatal Hernia: No Hypertension: Yes Immune Disorder: No Implanted Vascular Access Dvce: Yes Kidney Stones: No Musculoskeletal: Yes Neurologic: Yes (spinal stenosis w/ LE weakness, B/B incontinence) Psychiatric: No Reproductive: No Respiratory: Yes Integumentary: No Immunizations Current: Yes Migraines: No Myocardial Infarction: No Radiation Therapy: No Renal Failure: No Seizures: No Sickle Cell Disease: No Sleep Apnea: No Thyroid Disease: Yes (HYPERTHYROID) Ulcer: No Past Surgical History Abdominal Surgery: Yes (Hernia repair w/ mesh.) AICD: No Appendectomy: No Arteriovenous Shunt: No Body Medical Devices: Stents LE's, BL hips Cardiac Surgery: Yes (Bilateral lower extremity vascular stents) Cholecystectomy: No Ear Surgery: No Endocrine Surgery: No Eye Surgery: No Genitourinary Surgery: No Gynecologic Surgery: No Insulin Pump: No Joint Replacement: Yes (BL hips) Neurologic Surgery: No Oral Surgery: No Pacemaker: No Thoracic Surgery: Yes Other Surgery: Yes (Nodule removed from vocal cords, stent left leg) Social History Alcohol Use: Yes (Approx. twice a week with dinner ) Tobacco Use: Yes (1.5 PPD) Substance Use: No Allergies-Medications (Allergen,Severity, Reaction): Coded Allergies: No Known Allergies (Verified , 05/14/16) Reported Meds & Prescriptions Reported Meds & Active Scripts Active Lexapro (Escitalopram Oxalate) 10 Mg Tab 10 Mg PO DAILY Ativan (Lorazepam) 1 Mg Tab 1 Mg PO Q6H PRN Thera/Beta-Carotene (Multiple Vitamin) 1 Tab Tab 1 Tab PO DAILY Folate (Folic Acid) 1 Mg Tab 1 Mg PO DAILY Prednisone 20 Mg Tab 20 Mg PO BID one tab bid x 3d, then one tab daily x 3d, then 1/2 tab daily x 3d, then stop Plavix (Clopidogrel Bisulfate) 75 Mg Tab 75 Mg PO DAILY Reported [Oxygen] 2 Liter INH DAILY Tylenol Extra Strength (Acetaminophen) 500 Mg Tab 500 Mg PO Q4-6H PRN Ventolin Hfa 18 GM Inh (Albuterol Sulfate) 90 Mcg/Act Aer 2 Puff INH Q4-6H PRN Ipratropium Neb (Ipratropium Hutchinson) 0.5 Mg/2.5 Ml Amp 0.5 Mg NEB Q6HR NEB Breo Ellipta Inh (Fluticasone/Vilanterol) 100-25 Mcg/Act Inh 1 Puff INH DAILY Use daily at the same time. Albuterol Neb (Albuterol Sulfate) 2.5 Mg/3 Ml Neb 2.5 Mg NEB Q4HR NEB While awake Lorazepam 1 Mg Tab 1 Mg PO DAILY PRN Lisinopril 20 Mg Tab 20 Mg PO DAILY Atorvastatin (Atorvastatin Calcium) 20 Mg Tab 20 Mg PO HS Aspir-81 (Aspirin) 81 Mg Tabdr 81 Mg PO Maxzide-25 (Triamterene-Hydrochlorothiazide) 37.5-25 Mg Tab 1 Tab PO DAILY Verapamil (Verapamil HCl) 120 Mg Tab 120 Mg PO BID Review of Systems Except as stated in HPI: all other systems reviewed are Neg Physical Exam Narrative GENERAL: Well-nourished and well-developed pleasant male patient in no acute distress who is nontoxic appearing. SKIN: Warm and dry. HEAD: Normocephalic and atraumatic. EYES: No injection, drainage, or hyphema noted. PERRLA. EOMI. ENT: No nasal drainage noted. Oropharynx is clear. NECK: Supple and the trachea is midline. CARDIOVASCULAR: Regular rate and rhythm. RESPIRATORY: Breath sounds are equal bilaterally with no accessory muscle use, wheezing, rhonchi, or crackles. GASTROINTESTINAL: Abdomen is soft, non-tender, and nondistended. MUSCULOSKELETAL: No obvious deformities, swelling, cyanosis, or ecchymosis is present throughout the upper and lower extremities. Patient has full range of motion without any signs of neurovascular compromise. NEUROLOGICAL: Awake, alert, and oriented. Normal speech and gait. Cranial nerves are grossly intact. Data Data Last Documented VS Vital Signs Date Time Temp Pulse Resp B/P Pulse Ox O2 Delivery O2 Flow Rate FiO2 06/17/16 12:48 59 16 98/55 97 Room Air 06/17/16 12:15 98.2 Orders Complete Blood Count With Diff (06/17/16 12:08) Comprehensive Metabolic Panel (06/17/16 12:08) Prothrombin Time / Inr (Pt) (06/17/16 12:08) Act Partial Throm Time (Ptt) (06/17/16 12:08) Lactic Acid Sepsis Protocol (06/17/16 12:08) Urinalysis - C+S If Indicated (06/17/16 12:08) Influenzae A/B Antigen (06/17/16 12:08) Blood Culture (06/17/16 12:08) Chest, Single Ap (06/17/16 12:08) Blood Glucose (06/17/16 12:08) Ecg Monitoring (06/17/16 12:08) Iv Access Insert/Monitor (06/17/16 12:08) Oximetry (06/17/16 12:08) Oxygen Administration (06/17/16 12:08) Sodium Chlor 0.9% 1000 Ml Inj (Ns 1000 M (06/17/16 12:08) B-Type Natriuretic Peptide (06/17/16 12:08) Troponin I (06/17/16 12:08) Sodium Chlor 0.9% 1000 Ml Inj (Ns 1000 M (06/17/16 14:15) Ns + Kcl 20 Meq Inj (Ns + Kcl 20 Meq Inj (06/17/16 14:30) Complete Blood Count With Diff (06/18/16 06:00) Basic Metabolic Panel (Bmp) (06/18/16 06:00) Magnesium (Mg) (06/18/16 06:00) Admit To Inpatient (06/17/16 ) Code Status (06/17/16 14:27) Vital Signs (Adult) Q4H (06/17/16 14:27) Activity Oob With Assistance (06/17/16 14:27) Tire Fabricator / Telemetry .CONTINUOUS (06/17/16 14:27) Diet Regular Basic (06/17/16 Dinner) Sodium Chloride 0.9% Flush (Ns Flush) (06/17/16 14:30) Sodium Chloride 0.9% Flush (Ns Flush) (06/17/16 21:00) Acetaminophen (Tylenol) (06/17/16 14:30) Ondansetron Inj (Zofran Inj) (06/17/16 14:30) Bisacodyl Supp (Dulcolax Supp) (06/17/16 14:30) Magnesium Hydroxide Liq (Milk Of Magnesi (06/17/16 14:30) Electrocardiogram (06/17/16 14:27) Pt Request For Service (06/17/16 14:27) Scd Bilateral/Knee High ILIANA.BID (06/17/16 14:27) Naloxone Inj (Narcan Inj) (06/17/16 14:30) Inpatient Certification (06/17/16 ) Atorvastatin (Lipitor) (06/17/16 21:00) Clopidogrel (Plavix) (06/18/16 09:00) Escitalopram (Lexapro) (06/18/16 09:00) Fluticason-Vilanter 100-25 Inh (Breo Ell (06/18/16 09:00) (Nf) [Oxygen] (06/17/16 14:30) Albuterol-Ipratropium Neb (Duoneb Neb) (06/17/16 14:45) Ceftriaxone Inj (Rocephin Inj) (06/17/16 14:45) Labs Laboratory Tests Test 06/17/16 06/17/16 12:35 13:45 White Blood Count 15.6 TH/MM3 Red Blood Count 3.48 MIL/MM3 Hemoglobin 11.0 GM/DL Hematocrit 32.6 % Mean Corpuscular Volume 93.7 FL Mean Corpuscular Hemoglobin 31.5 PG Mean Corpuscular Hemoglobin 33.6 % Concent Red Cell Distribution Width 15.3 % Platelet Count 213 TH/MM3 Mean Platelet Volume 7.9 FL Neutrophils (%) (Auto) 85.5 % Lymphocytes (%) (Auto) 4.5 % Monocytes (%) (Auto) 9.6 % Eosinophils (%) (Auto) 0.2 % Basophils (%) (Auto) 0.2 % Neutrophils # (Auto) 13.3 TH/MM3 Lymphocytes # (Auto) 0.7 TH/MM3 Monocytes # (Auto) 1.5 TH/MM3 Eosinophils # (Auto) 0.0 TH/MM3 Basophils # (Auto) 0.0 TH/MM3 CBC Comment DIFF FINAL Differential Comment Prothrombin Time 10.5 SEC Prothromb Time International 1.0 RATIO Ratio Activated Partial 31.1 SEC Thromboplast Time Sodium Level 133 MEQ/L Potassium Level 3.3 MEQ/L Chloride Level 99 MEQ/L Carbon Dioxide Level 19.9 MEQ/L Anion Gap 14 MEQ/L Blood Urea Nitrogen 38 MG/DL Creatinine 2.19 MG/DL Estimat Glomerular Filtration 30 ML/MIN Rate Random Glucose 105 MG/DL Calcium Level 8.0 MG/DL Total Bilirubin 0.5 MG/DL Aspartate Amino Transf 12 U/L (AST/SGOT) Alanine Aminotransferase 14 U/L (ALT/SGPT) Alkaline Phosphatase 62 U/L Troponin I LESS THAN 0.02 NG/ML B-Type Natriuretic Peptide 30 PG/ML Total Protein 6.5 GM/DL Albumin 2.8 GM/DL Lactic Acid Level 2.2 mmol/L MDM Medical Decision Making Medical Screen Exam Complete: Yes Emergency Medical Condition: Yes Differential Diagnosis Dehydration versus acute kidney injury versus sepsis versus medication noncompliance Narrative Course 71-year-old male is brought to the emergency department for evaluation of hypotension. Patient is afebrile. He is initially noted to be hypotensive with a blood pressure 88/50 years and the emergency department. Otherwise vital signs are within normal limits. The paperwork sent over from Dr. yeager's office states his blood pressure was 67/49 at that time. He also had an EKG at Dr. yeager's office which shows sinus rhythm with no acute ST elevations or depressions. IV access is obtained, labs been drawn and sent. Patient is administered fluids. Influenza swab is negative. Chest x-ray is negative for any acute abnormalities. CBC shows an elevated white blood count of 15.6, mild anemia with hemoglobin 11.0, hematocrit 32.6. CMP shows elevated creatinine of 2.19, BUN 38, GFR 30, hypokalemia with a potassium of 3.3. This is acute kidney injury and dehydration. Troponin is less than 0.02. The patient's blood pressure responded well to fluids and is now 103/58, heart rate 95 bpm. He's been unable to provide a urine specimen while here in the emergency department. I suspect the patient has sepsis secondary to urinary tract infection. The patient is administered Rocephin 1 g IV empirically. He' ll be admitted to the medicine service. I discussed the case with my attending physician Dr. Wagner who is aware of the patients history, physical examination findings, and treatment plan. Physician Communication Physician Communication Spoke with Dr. Murcia [facility] who agrees to admit the patient to his service. Diagnosis Primary Impression: SIRS (systemic inflammatory response syndrome) Additional Impressions: SUSAN (acute kidney injury) Dehydration Admitting Information Admitting Physician Requests: Admit Margaret Millard Jun 17, 2016 12:15
[2016-06-17 12:17] VITALS: O2SAT 95
[2016-06-17 12:48] VITALS: BP 98/55; PULSE 59; RESP 16; O2SAT 97
--- NOTE | 2016-06-17 13:08 | RADRPT ---
EXAM DATE/TIME: 06/17/2016 12:28 [place] COMPARISON: CHEST SINGLE AP, May 14, 2016, 18:22. INDICATIONS : Patient was sent by his doctor this afternoon for hypotension. MEDICAL HISTORY : Hypertension. SURGICAL HISTORY : None. ENCOUNTER: Initial ACUITY: 1 day PAIN SCORE: 0/10 LOCATION: Chest FINDINGS: There is elevation of the right hemidiaphragm. Heart is minimally enlarged. Pulmonary vascularity i s normal. There is no evidence of consolidation, pleural effusion or pneumothorax. CONCLUSION: Negative chest for acute disease. Renzo Diane MD FACR on June 17, 2016 at 13:02 Board Certified Radiologist. This report was verified electronically.
[2016-06-17 13:42] LABS: AUTOMATED NEUTROPHIL # 13.3 TH/MM3 (1.8-7.7); BASOPHIL % 0.2 % (0.0-2.0); EOSINOPHIL % 0.2 % (0.0-4.0); HEMATOCRIT 32.6 % (39.0-51.0); HEMO FLAGS DIFF FINAL; LYMPH % 4.5 % (9.0-44.0); LYMPHOCYTE # 0.7 TH/MM3 (1.0-4.8); MEAN CELL VOLUME 93.7 FL (80.0-100.0); MEAN CORPUSCULAR HEMOGLOBIN 31.5 PG (27.0-34.0); MEAN CORPUSCULAR HGB CONC 33.6 % (32.0-36.0); MONO % 9.6 % (0.0-8.0); NEUT % 85.5 % (16.0-70.0); PLATELET COUNT 213 TH/MM3 (150-450); RED BLOOD COUNT 3.48 MIL/MM3 (4.50-5.90); RED CELL DISTRIBUTION WIDTH 15.3 % (11.6-17.2); WHITE BLOOD COUNT 15.6 TH/MM3 (4.0-11.0)
[2016-06-17 13:56] LABS: APTT (PATIENT) 31.1 SEC (24.3-30.1); PROTHROMBIN TIME - PATIENT 10.5 SEC (9.8-11.6)
[2016-06-17 13:58] LABS: ANION GAP 14 MEQ/L (5-15); AST (GOT) 12 U/L (15-37); BICARBONATE 19.9 MEQ/L (21.0-32.0); BLOOD UREA NITROGEN 38 MG/DL (7-18); CHLORIDE 99 MEQ/L (98-107); GLOMERULAR FILTRATION RATE 30 ML/MIN (>89); POTASSIUM 3.3 MEQ/L (3.5-5.1); SODIUM (NA) 133 MEQ/L (136-145)
[2016-06-17 14:03] LABS: ALKALINE PHOSPHATASE 62 U/L (45-117); ALT (GPT) 14 U/L (12-78); TOTAL BILIRUBIN ADULT 0.5 MG/DL (0.2-1.0)
[2016-06-17] MEDS ORDERED: SODIUM CHLORIDE 0.9% FLUSH 5 ML FLUSH FLUSH PRN (14:30)
[2016-06-17] MEDS ORDERED: OXYGEN INH SCH (14:30)
[2016-06-17] MEDS ORDERED: NALOXONE HCL 0.4 MG/ML AMP IV PRN (14:30)
[2016-06-17] MEDS ORDERED: cefTRIAXone INJ 1,000 MG in SODIUM CHLORIDE 0.9% INJ 100 ML IV ONE (14:45)
[2016-06-17] MEDS ORDERED: MAGNESIUM HYDROXIDE SUSP 30 ML CUP PO PRN (15:00)
[2016-06-17] MEDS ORDERED: BISACODYL 10 MG SUPP PR PRN (15:00)
[2016-06-17] MEDS ORDERED: ONDANSETRON HCL 4 MG/2 ML VIAL IVP PRN (15:00)
[2016-06-17] MEDS ORDERED: ACETAMINOPHEN 325 MG TAB PO PRN (15:00)
[2016-06-17 15:51] LABS: LACTIC ACID GHOST NOT REPORTABLE
[2016-06-17 15:52] LABS: BLOOD, URINE NEG (NEG); GLUCOSE,URINE NEG (NEG); KETONE, URINE NEG (NEG); NITRITE,URINE NEG (NEG); PH, URINE 5.5 (5.0-8.5); SQUAMOUS EPITHELIAL CELL URINE <1 /hpf (0-5); URINE COLOR YELLOW (YELLW/STRAW)
[2016-06-17] MEDS ORDERED: RESP: ALBUTEROL 2.5 MG/IPRATROPIUM 0.5 MG NEB (PRN) NEB (16:00)
[2016-06-17] MEDS: NS + KCL 20 MEQ INJ 1,000 ML IV SCH ×2 (16:10→23:49)
[2016-06-17] MEDS ORDERED: chlordiazePOXIDE 25 MG CAP PO PRN (16:15)
--- NOTE | 2016-06-17 16:25 | HHI.HP ---
HPI Service [facility] Hospitalists Primary Care Physician Ryley Rodgers MD Admission Diagnosis SIRS r/o Sepsis, SUSAN, Dehydration Chief Complaint: hypotension Travel History International Travel<30 Days: No Contact w/Intl Traveler <30 Da: No Traveled to Known Affected Are: No Sepsis Criteria SIRS Criteria (2 or more): WBC > 85119, < 4000 or > 10% bands Severe Sepsis (+one): Hypotension, Lactate >2 Criteria Outcome: Meets sepsis criteria History of Present Illness Patient is a 71-year-old male with history of alcohol abuse, COPD, hypertension , anxiety, and peripheral artery disease. Patient was previously hospitalized at [facility] due to alcohol abuse and COPD exacerbation. Patient states that he has not drank any alcohol since his previous hospitalization. Patient is quite tremulous during my examination. Patient was seen today by his manager drug, Dr. yeager, for PAD. Patient was found to be hypotensive at Dr. yeager's office with systolic blood pressure readings in the 60s. Patient's initial blood pressure reading on arrival in the ER was 88/50. Patient denies fever, but complains of chills. Patient is tremulous which may be due to alcohol withdrawal, although patient claims that he has not drank since previous hospitalization. Patient was discharged on multiple blood pressure medications including verapamil, Maxzide, and lisinopril. Patient is somewhat confused about his medication regimen and may have taken an accidental additional dose of 1 of his blood pressure medication. In the ER patient received intravenous fluids and Rocephin. Patient's last blood pressure reading was 98/55. Patient denies dizziness, syncope, or palpitations. Patient denies cough or dysuria. Patient denies IV drug use. Review of Systems Constitutional: DENIES: Diaphoretic episodes, Fatigue, Fever, Weight gain, Weight loss, Chills, Dizziness, Change in appetite, Night Sweats Endocrine: DENIES: Heat/cold intolerance, Polydipsia, Polyuria, Polyphagia Eyes: DENIES: Blurred vision, Diplopia, Eye inflammation, Eye pain, Vision loss , Photosensitivity, Double Vision Ears, nose, mouth, throat: DENIES: Tinnitus, Hearing loss, Vertigo, Nasal discharge, Oral lesions, Throat pain, Hoarseness, Ear Pain, Running Nose, Epistaxis, Sinus Pain, Toothache, Odynophagia Respiratory: DENIES: Apneas, Cough, Snoring, Wheezing, Hemoptysis, Sputum production, Shortness of breath Cardiovascular: DENIES: Chest pain, Palpitations, Syncope, Dyspnea on Exertion , PND, Lower Extremity Edema, Orthopnea, Claudication Gastrointestinal: DENIES: Abdominal pain, Black stools, Bloody stools, BRB per rectum, Constipation, Diarrhea, GERD, Nausea, Reflux, Vomiting, Difficulty Swallowing, Anorexia Genitourinary: DENIES: Urinary incontinence, Urgency, Hematuria, Dysuria, Nocturia Musculoskeletal: DENIES: Joint pain, Muscle aches, Stiffness, Joint Swelling, Back pain, Neck pain Integumentary: DENIES: Abnormal pigmentation, Nail changes, Pruritus, Rash Hematologic/lymphatic: DENIES: Bruising, Lymphadenopathy Immunologic/allergic: DENIES: Eczema, Urticaria Neurologic: DENIES: Abnormal gait, Headache, Localized weakness, Paresthesias, Seizures, Speech Problems, Tremor, Poor Balance Psychiatric: DENIES: Anxiety, Confusion, Mood changes, Depression, Hallucinations, Agitation, Suicidal Ideation, Homicidal Ideation, Delusions, History of Bipolar, History of Schizophrenia Past Family Social History Past Medical History 1) alcohol dependence - Per patient he has not drank alcohol since last hospitalization 2) anxiety 3) COPD 4) Reaves's esophagus 5) peripheral arterial disease 6) lumbar disc disease 7) GERD 8) hypertension 9) hyperlipidemia 10) hyperthyroidism Past Surgical History Colonoscopy in 2006 revealed 4 polyps and some internal hemorrhoids EGD done in 2006 revealed gastritis and esophagitis Bilateral total hip replacement Angioplasty with atherectomy bilateral SFA Balloon angioplasty of left SFA and ORA in March 2016 Stenting left common iliac artery and right common iliac artery March 2016 Allergies: Coded Allergies: No Known Allergies (Verified , 05/14/16) Family History Noncontributory Social History - Heavy alcohol use - On previous admission, patient stated that he drank 1 quart of rum per day - Smokes cigarettes one pack per day which he has done for 50 years - Lives with his - Retired from [employer] after 40 years - originally from [place], he moved to [place] in 1985 Physical Exam Vital Signs Vital Signs Date Time Temp Pulse Resp B/P Pulse Ox O2 Delivery O2 Flow Rate FiO2 06/17/16 12:48 59 16 98/55 97 Room Air 06/17/16 12:18 80 16 95 Room Air 3/1/17 12:17 95 Room Air 06/17/16 12:17 95 Room Air 06/17/16 12:15 98.2 83 18 88/50 96 Physical Exam GENERAL: This is a well-nourished, well-developed patient, in no apparent distress. SKIN: No rashes, ecchymoses or lesions. Cool and dry. HEAD: Atraumatic. Normocephalic. No temporal or scalp tenderness. EYES: Pupils equal round and reactive. Extraocular motions intact. No scleral icterus. No injection or drainage. ENT: Nose without bleeding, purulent drainage or septal hematoma. Throat without erythema, tonsillar hypertrophy or exudate. Uvula midline. Airway patent. NECK: Trachea midline. No JVD or lymphadenopathy. Supple, nontender, no meningeal signs. CARDIOVASCULAR: Regular rate and rhythm without murmurs, gallops, or rubs. RESPIRATORY: Clear to auscultation. Breath sounds equal bilaterally. No wheezes , rales, or rhonchi. GASTROINTESTINAL: Abdomen soft, non-tender, nondistended. No hepato-splenomegaly , or palpable masses. No guarding. MUSCULOSKELETAL: Extremities without clubbing, cyanosis, or edema. No joint tenderness, effusion, or edema noted. No calf tenderness. Negative Homans sign bilaterally. NEUROLOGICAL: Awake and alert. Cranial nerves II through XII intact. Motor and sensory grossly within normal limits. Five out of 5 muscle strength in all muscle groups. Normal speech. Upper extremities are tremulous Laboratory Laboratory Tests Test 06/17/16 06/17/16 06/17/16 12:35 13:45 15:27 White Blood Count 15.6 Red Blood Count 3.48 Hemoglobin 11.0 Hematocrit 32.6 Mean Corpuscular Volume 93.7 Mean Corpuscular Hemoglobin 31.5 Mean Corpuscular Hemoglobin 33.6 Concent Red Cell Distribution Width 15.3 Platelet Count 213 Mean Platelet Volume 7.9 Neutrophils (%) (Auto) 85.5 Lymphocytes (%) (Auto) 4.5 Monocytes (%) (Auto) 9.6 Eosinophils (%) (Auto) 0.2 Basophils (%) (Auto) 0.2 Neutrophils # (Auto) 13.3 Lymphocytes # (Auto) 0.7 Monocytes # (Auto) 1.5 Eosinophils # (Auto) 0.0 Basophils # (Auto) 0.0 CBC Comment DIFF FINAL Differential Comment Prothrombin Time 10.5 Prothromb Time International 1.0 Ratio Activated Partial 31.1 Thromboplast Time Sodium Level 133 Potassium Level 3.3 Chloride Level 99 Carbon Dioxide Level 19.9 Anion Gap 14 Blood Urea Nitrogen 38 Creatinine 2.19 Estimat Glomerular Filtration 30 Rate Random Glucose 105 Calcium Level 8.0 Total Bilirubin 0.5 Aspartate Amino Transf 12 (AST/SGOT) Alanine Aminotransferase 14 (ALT/SGPT) Alkaline Phosphatase 62 Troponin I LESS THAN 0.02 B-Type Natriuretic Peptide 30 Total Protein 6.5 Albumin 2.8 Lactic Acid Level 2.2 Urine Color YELLOW Urine Turbidity CLEAR Urine pH 5.5 Urine Specific [place] 1.014 Urine Protein 30 Urine Glucose (UA) NEG Urine Ketones NEG Urine Occult Blood NEG Urine Nitrite NEG Urine Bilirubin NEG Urine Urobilinogen 2.0 Urine Leukocyte Esterase NEG Urine RBC LESS THAN 1 Urine WBC 2 Urine Squamous Epithelial <1 Cells Microscopic Urinalysis Comment CATH-CULTURE IND Date/Time Procedure Status Source Growth 06/17/16 15:27 Urine Culture Received Urine Clean Catch Pending 06/17/16 12:35 Influenza Types A,B Antigen (PEDRO) - Final Complete Nasal Washing NEGATIVE FOR FLU A AND B ANTIGEN.... 06/17/16 12:30 Aerobic Blood Culture Received Blood Peripheral Pending 06/17/16 12:30 Anaerobic Blood Culture Received Blood Peripheral Pending Result Diagram: 06/17/16 1235 06/17/16 1235 Septic Shock Reassessment Heart: Regular rate and rhythm Lungs: Clear Skin: Warm Peripheral Pulses: Bounding Right Radial Bounding Left Radial Bounding Right Popliteal Bounding Left Popliteal Bounding Right Dorsalis Pedis Bounding Left Dorsalis Pedis Bounding Right Posterior Tibial Bounding Left Posterior Tibial Capillary Refill: Brisk Assessment and Plan Problem List: (1) Hypotension Status: Resolved Plan: - Early sepsis versus accidentaland of extra blood pressure medication - Cover with broad-spectrum antibiotic therapy for now: Zosyn and vancomycin - Continue intravenous fluids - Hold all blood pressure medications - Follow cultures (2) Alcohol withdrawal Status: Acute Plan: - Although patient states that he has not been drinking alcohol since previous hospitalization, His presentation is highly suspicious for continued alcohol abuse - I will obtained urine toxicology panel - Start Librium 25 mg by mouth 3 times a day - Ativan when necessary - Multivitamin, thiamine, folate (3) PAD (peripheral artery disease) Status: Chronic Plan: - Continue aspirin, Plavix, statin (4) Physical deconditioning Status: Acute Plan: - Request physical therapy evaluation (5) Anxiety Status: Chronic Plan: - Continue Lexapro, Ativan when necessary (6) COPD (chronic obstructive pulmonary disease) Status: Acute Plan: - When necessary DuoNeb treatments - Continue outpatient medication regimen Physician Certification 2 Midnight Certification Type: Admission for Inpatient Services Order for Inpatient Services The services are ordered in accordance with Medicare regulations or non- Medicare payer requirements, as applicable. In the case of services not specified as inpatient-only, they are appropriately provided as inpatient services in accordance with the 2-midnight benchmark. Estimated LOS (days): 3 3 days is the estimated time the patient will need to remain in the hospital, assuming treatment plan goals are met and no additional complications. Post-Hospital Plan: Not yet determined Problem Qualifiers (1) Alcohol withdrawal: Qualified Code: F10.239 - Alcohol withdrawal, with unspecified complication (2) COPD (chronic obstructive pulmonary disease): Zaheer Murcia DO Jun 17, 2016 16:25
[2016-06-17 16:33] LABS: COMMENT (UR) CULT NOT INDICATED; CULTURE IF INDICATED CULT NOT INDICATED
[2016-06-17] MEDS: LORazepam 2 MG/ML VIAL IV PUSH PRN (16:54)
[2016-06-17 17:31] VITALS: BP 119/68; PULSE 116; RESP 20; TEMP 100.7; O2SAT 95
[2016-06-17] MEDS: VANCOMYCIN INJ 1,000 MG in SODIUM CHLOR 0.9% 250 ML INJ 250 ML IV SCH (18:01)
[2016-06-17] MEDS: PIPERACIL-TAZO 3.375 GM PREMIX 50 ML IV SCH ×2 (18:53→23:50)
[2016-06-17 20:00] VITALS: BP 122/65; PULSE 111; RESP 22; TEMP 101.9; O2SAT 95
[2016-06-17] MEDS: ATORVASTATIN 20 MG TAB PO SCH (20:19)
[2016-06-17] MEDS: SODIUM CHLORIDE 0.9% FLUSH 5 ML FLUSH FLUSH SCH (20:28)
[2016-06-17] MEDS: RESP: ALBUTEROL 2.5 MG/IPRATROPIUM 0.5 MG NEB (PRN) NEB (20:46)
[2016-06-17 20:58] VITALS: O2SAT 95
[2016-06-18] VITALS (12 sets, daily range): BP systolic 103–123; BP diastolic 53–69; PULSE 82–111; RESP 18–20; TEMP 97.9–99.1; O2SAT 94–98
[2016-06-18 00:46] LABS: AMPHETAMINE, URINE NEG (NEG); BARBITURATES, URINE NEG (NEG); COCAINE, URINE NEG (NEG)
[2016-06-18] MEDS: RESP: ALBUTEROL 2.5 MG/IPRATROPIUM 0.5 MG NEB (PRN) NEB ×3 (04:55→13:08)
[2016-06-18] MEDS: PIPERACIL-TAZO 3.375 GM PREMIX 50 ML IV SCH ×4 (05:25→23:00)
[2016-06-18] MEDS: VANCOMYCIN INJ 1,000 MG in SODIUM CHLOR 0.9% 250 ML INJ 250 ML IV SCH ×2 (05:25→17:13)
[2016-06-18] MEDS: NS + KCL 20 MEQ INJ 1,000 ML IV SCH ×3 (05:31→23:24)
[2016-06-18] MEDS: SODIUM CHLORIDE 0.9% FLUSH 5 ML FLUSH FLUSH SCH ×2 (08:00→21:00)
[2016-06-18] MEDS: CLOPIDOGREL 75 MG TAB PO SCH (08:01)
[2016-06-18] MEDS: FLUTICASONE 100 MCG/VILANTEROL 25 MCG INHALER INH SCH (08:01)
[2016-06-18] MEDS: ASPIRIN EC 81 MG TABEC PO SCH (08:01)
[2016-06-18] MEDS: ESCITALOPRAM OXALATE 10 MG TAB PO SCH (08:01)
[2016-06-18 08:06] LABS: AUTOMATED NEUTROPHIL # 9.4 TH/MM3 (1.8-7.7); BASOPHIL % 0.2 % (0.0-2.0); EOSINOPHIL # 0.1 TH/MM3 (0-0.4); EOSINOPHIL % 1.3 % (0.0-4.0); HEMATOCRIT 32.4 % (39.0-51.0); HEMO FLAGS DIFF FINAL; LYMPH % 6.6 % (9.0-44.0); LYMPHOCYTE # 0.8 TH/MM3 (1.0-4.8); MEAN CELL VOLUME 94.2 FL (80.0-100.0); MEAN CORPUSCULAR HEMOGLOBIN 31.7 PG (27.0-34.0); MEAN CORPUSCULAR HGB CONC 33.7 % (32.0-36.0); MONO % 9.4 % (0.0-8.0); NEUT % 82.5 % (16.0-70.0); PLATELET COUNT 210 TH/MM3 (150-450); RED BLOOD COUNT 3.44 MIL/MM3 (4.50-5.90); RED CELL DISTRIBUTION WIDTH 15.3 % (11.6-17.2); WHITE BLOOD COUNT 11.4 TH/MM3 (4.0-11.0)
[2016-06-18 08:31] LABS: BICARBONATE 24.2 MEQ/L (21.0-32.0); MAGNESIUM 1.8 MG/DL (1.5-2.5); POTASSIUM 3.6 MEQ/L (3.5-5.1)
--- NOTE | 2016-06-18 14:47 | HHI.PR ---
Subjective Remarks Pt reports that he feels overall better today Less shaky today Pt has been afebrile today, last fever was at 2000 on 06/17/16 @ 101.9 Objective Vitals Vital Signs Date Time Temp Pulse Resp B/P Pulse Ox O2 Delivery O2 Flow Rate FiO2 06/18/16 12:00 99.1 92 20 118/63 94 06/18/16 11:08 111 06/18/16 09:54 95 Nasal Cannula 2.00 06/18/16 08:00 98.7 91 20 103/66 96 06/18/16 04:56 95 Nasal Cannula 2.00 06/18/16 04:00 97.9 82 18 105/59 98 06/18/16 03:35 96 06/18/16 00:00 98.3 88 18 105/56 96 06/17/16 20:58 95 Nasal Cannula 2.00 06/17/16 20:00 101.9 111 22 122/65 95 06/17/16 17:31 100.7 116 20 119/68 95 06/17/16 06/17/16 06/18/16 15:00 23:00 07:00 Intake Total 650 ml 2129 ml Output Total 600 ml 1200 ml Balance 50 ml 929 ml Intake Oral 650 ml 500 ml IV Total 1629 ml Output Urine Total 600 ml 1200 ml # Voids 1 # Bowel Movements 0 0 Result Diagram: 06/18/16 0616 06/18/16 0616 Other Results Laboratory Tests Test 06/17/16 06/17/16 06/17/16 06/17/16 12:35 13:45 15:27 16:00 White Blood Count 15.6 TH/MM3 Red Blood Count 3.48 MIL/MM3 Hemoglobin 11.0 GM/DL Hematocrit 32.6 % Mean Corpuscular Volume 93.7 FL Mean Corpuscular Hemoglobin 31.5 PG Mean Corpuscular Hemoglobin 33.6 % Concent Red Cell Distribution Width 15.3 % Platelet Count 213 TH/MM3 Mean Platelet Volume 7.9 FL Neutrophils (%) (Auto) 85.5 % Lymphocytes (%) (Auto) 4.5 % Monocytes (%) (Auto) 9.6 % Eosinophils (%) (Auto) 0.2 % Basophils (%) (Auto) 0.2 % Neutrophils # (Auto) 13.3 TH/MM3 Lymphocytes # (Auto) 0.7 TH/MM3 Monocytes # (Auto) 1.5 TH/MM3 Eosinophils # (Auto) 0.0 TH/MM3 Basophils # (Auto) 0.0 TH/MM3 CBC Comment DIFF FINAL Differential Comment Prothrombin Time 10.5 SEC Prothromb Time International 1.0 RATIO Ratio Activated Partial 31.1 SEC Thromboplast Time Sodium Level 133 MEQ/L Potassium Level 3.3 MEQ/L Chloride Level 99 MEQ/L Carbon Dioxide Level 19.9 MEQ/L Anion Gap 14 MEQ/L Blood Urea Nitrogen 38 MG/DL Creatinine 2.19 MG/DL Estimat Glomerular Filtration 30 ML/MIN Rate Random Glucose 105 MG/DL Calcium Level 8.0 MG/DL Total Bilirubin 0.5 MG/DL Aspartate Amino Transf 12 U/L (AST/SGOT) Alanine Aminotransferase 14 U/L (ALT/SGPT) Alkaline Phosphatase 62 U/L Troponin I LESS THAN 0.02 NG/ML B-Type Natriuretic Peptide 30 PG/ML Total Protein 6.5 GM/DL Albumin 2.8 GM/DL Lactic Acid Level 2.2 mmol/L 1.7 mmol/L Urine Color YELLOW Urine Turbidity CLEAR Urine pH 5.5 Urine Specific [place] 1.014 Urine Protein 30 mg/dL Urine Glucose (UA) NEG mg/dL Urine Ketones NEG mg/dL Urine Occult Blood NEG Urine Nitrite NEG Urine Bilirubin NEG Urine Urobilinogen 2.0 MG/DL Urine Leukocyte Esterase NEG Urine RBC LESS THAN 1 /hpf Urine WBC 2 /hpf Urine Squamous Epithelial <1 /hpf Cells Microscopic Urinalysis Comment CULT NOT INDICATED Urine Opiates Screen NEG Urine Barbiturates Screen NEG Urine Amphetamines Screen NEG Urine Benzodiazepines Screen NEG Urine Cocaine Screen NEG Urine Cannabinoids Screen NEG Test 06/18/16 06:16 White Blood Count 11.4 TH/MM3 Red Blood Count 3.44 MIL/MM3 Hemoglobin 10.9 GM/DL Hematocrit 32.4 % Mean Corpuscular Volume 94.2 FL Mean Corpuscular Hemoglobin 31.7 PG Mean Corpuscular Hemoglobin 33.7 % Concent Red Cell Distribution Width 15.3 % Platelet Count 210 TH/MM3 Mean Platelet Volume 7.9 FL Neutrophils (%) (Auto) 82.5 % Lymphocytes (%) (Auto) 6.6 % Monocytes (%) (Auto) 9.4 % Eosinophils (%) (Auto) 1.3 % Basophils (%) (Auto) 0.2 % Neutrophils # (Auto) 9.4 TH/MM3 Lymphocytes # (Auto) 0.8 TH/MM3 Monocytes # (Auto) 1.1 TH/MM3 Eosinophils # (Auto) 0.1 TH/MM3 Basophils # (Auto) 0.0 TH/MM3 CBC Comment DIFF FINAL Differential Comment Sodium Level 138 MEQ/L Potassium Level 3.6 MEQ/L Chloride Level 104 MEQ/L Carbon Dioxide Level 24.2 MEQ/L Anion Gap 10 MEQ/L Blood Urea Nitrogen 21 MG/DL Creatinine 1.00 MG/DL Estimat Glomerular Filtration 74 ML/MIN Rate Random Glucose 119 MG/DL Calcium Level 7.8 MG/DL Magnesium Level 1.8 MG/DL Imaging Last Impressions Chest X-Ray 06/17/16 1208 Signed Impressions: Service Date/Time: Wednesday, June 17, 2016 12:28 - CONCLUSION: Negative chest for acute disease. Renzo Diane MD FACR Objective Remarks General: NAD, AAOx3 Chest: Coarse breath sounds bilaterally Cardiac: Regular Abd: +BS, soft ND/NT Ext: No edema A/P Problem List: (1) Hypotension Status: Resolved Plan: - Early sepsis versus accidental extra dose of blood pressure medication - Pt did have fever on 06/17/16 with Tmax 101.9, no fevers today - CXR was negative for acute disease - Pt did appear to be dehydrated at admission. - Cover with broad-spectrum antibiotic therapy for now: Zosyn and vancomycin - Continue intravenous fluids - Hold all blood pressure medications - Blood cultures (06/17) with NGTD - DVT prophylaxis (2) Alcohol withdrawal Status: Acute Plan: - Although patient states that he has not been drinking alcohol since previous hospitalization, His presentation is highly suspicious for continued alcohol abuse - Urine toxicology panel is pending - Cont. Librium 25 mg by mouth 3 times a day - Ativan when necessary - Multivitamin, thiamine, folate (3) PAD (peripheral artery disease) Status: Chronic Plan: - Continue aspirin, Plavix, statin (4) Physical deconditioning Status: Acute Plan: - Pt did well with physical therapy today (5) Anxiety Status: Chronic Plan: - Continue Lexapro, Ativan when necessary (6) COPD (chronic obstructive pulmonary disease) Status: Acute Plan: - Cont. DuoNeb treatments but we will schedule them Q4H WA and Q2H PRN - Continue outpatient medication regimen Assessment and Plan Patient examined. Assessment and plan formulated with Ana Norwood PA-C. I agree with the above. Problem Qualifiers (1) Alcohol withdrawal: Qualified Code: F10.239 - Alcohol withdrawal, with unspecified complication (2) COPD (chronic obstructive pulmonary disease): Ana Norwood Jun 18, 2016 14:47 Zaheer Murcia DO Jun 21, 2016 11:07
[2016-06-18] MEDS: RESP: ALBUTEROL 2.5 MG/IPRATROPIUM 0.5 MG NEB (SCH) NEB ×2 (15:00→21:53)
[2016-06-18] MEDS: ATORVASTATIN 20 MG TAB PO SCH (21:33)
[2016-06-19] VITALS (9 sets, daily range): BP systolic 125–155; BP diastolic 72–83; PULSE 91–112; RESP 18–20; TEMP 98.2–99.3; O2SAT 93–97
[2016-06-19] MEDS: RESP: ALBUTEROL 2.5 MG/IPRATROPIUM 0.5 MG NEB (PRN) NEB (04:01)
[2016-06-19] MEDS: PIPERACIL-TAZO 3.375 GM PREMIX 50 ML IV SCH ×2 (05:53→11:02)
[2016-06-19] MEDS: NS + KCL 20 MEQ INJ 1,000 ML IV SCH (05:53)
[2016-06-19] MEDS: VANCOMYCIN INJ 1,000 MG in SODIUM CHLOR 0.9% 250 ML INJ 250 ML IV SCH (05:53)
[2016-06-19] MEDS: RESP: ALBUTEROL 2.5 MG/IPRATROPIUM 0.5 MG NEB (SCH) NEB ×4 (07:26→19:19)
[2016-06-19 07:49] LABS: AUTOMATED NEUTROPHIL # 7.6 TH/MM3 (1.8-7.7); BASOPHIL % 0.3 % (0.0-2.0); EOSINOPHIL # 0.2 TH/MM3 (0-0.4); EOSINOPHIL % 2.1 % (0.0-4.0); HEMATOCRIT 30.6 % (39.0-51.0); HEMO FLAGS DIFF FINAL; MEAN CELL VOLUME 93.5 FL (80.0-100.0); MEAN CORPUSCULAR HEMOGLOBIN 32.1 PG (27.0-34.0); MEAN CORPUSCULAR HGB CONC 34.3 % (32.0-36.0); MONO % 8.6 % (0.0-8.0); PLATELET COUNT 231 TH/MM3 (150-450); RED BLOOD COUNT 3.27 MIL/MM3 (4.50-5.90); RED CELL DISTRIBUTION WIDTH 14.9 % (11.6-17.2); WHITE BLOOD COUNT 9.6 TH/MM3 (4.0-11.0)
[2016-06-19] MEDS: SODIUM CHLORIDE 0.9% FLUSH 5 ML FLUSH FLUSH SCH ×2 (08:29→19:44)
[2016-06-19] MEDS: CLOPIDOGREL 75 MG TAB PO SCH (08:32)
[2016-06-19] MEDS: ESCITALOPRAM OXALATE 10 MG TAB PO SCH (08:32)
[2016-06-19] MEDS: ASPIRIN EC 81 MG TABEC PO SCH (08:32)
[2016-06-19] MEDS: FLUTICASONE 100 MCG/VILANTEROL 25 MCG INHALER INH SCH (08:32)
[2016-06-19 08:33] LABS: BICARBONATE 22.4 MEQ/L (21.0-32.0); MAGNESIUM 1.4 MG/DL (1.5-2.5); POTASSIUM 3.9 MEQ/L (3.5-5.1)
--- NOTE | 2016-06-19 13:56 | HHI.PR ---
Subjective Remarks No new complaints Pt has been afebrile since 06/17 Objective Vitals Vital Signs Date Time Temp Pulse Resp B/P Pulse Ox O2 Delivery O2 Flow Rate FiO2 06/19/16 12:00 98.8 102 18 125/73 93 06/19/16 08:15 Nasal Cannula 2.00 06/19/16 08:00 98.2 93 18 135/72 93 06/19/16 08:00 112 06/19/16 07:26 96 Nasal Cannula 2.00 06/19/16 04:00 98.3 103 20 147/80 96 06/19/16 00:00 Nasal Cannula 2.00 06/19/16 00:00 98.2 103 20 144/76 95 06/18/16 21:53 96 Nasal Cannula 2.00 06/18/16 20:24 104 06/18/16 20:00 98.8 102 20 123/53 95 06/18/16 20:00 Nasal Cannula 2.00 06/18/16 16:00 98.9 95 20 122/69 97 06/18/16 06/18/16 06/19/16 15:00 23:00 07:00 Intake Total 600 ml 1241 ml 1309 ml Output Total 1100 ml 600 ml Balance -500 ml 1241 ml 709 ml Intake Oral 600 ml 120 ml IV Total 1241 ml 1189 ml Output Urine Total 1100 ml 600 ml # Bowel Movements 1 0 Result Diagram: 06/19/16 0608 06/19/16 0608 Other Results Laboratory Tests Test 06/17/16 06/17/16 06/18/16 06/19/16 15:27 16:00 06:16 06:08 Urine Color YELLOW Urine Turbidity CLEAR Urine pH 5.5 Urine Specific [place] 1.014 Urine Protein 30 mg/dL Urine Glucose (UA) NEG mg/dL Urine Ketones NEG mg/dL Urine Occult Blood NEG Urine Nitrite NEG Urine Bilirubin NEG Urine Urobilinogen 2.0 MG/DL Urine Leukocyte Esterase NEG Urine RBC LESS THAN 1 /hpf Urine WBC 2 /hpf Urine Squamous Epithelial <1 /hpf Cells Microscopic Urinalysis Comment CULT NOT INDICATED Urine Opiates Screen NEG Urine Barbiturates Screen NEG Urine Amphetamines Screen NEG Urine Benzodiazepines Screen NEG Urine Cocaine Screen NEG Urine Cannabinoids Screen NEG Lactic Acid Level 1.7 mmol/L White Blood Count 11.4 TH/MM3 9.6 TH/MM3 Red Blood Count 3.44 MIL/MM3 3.27 MIL/MM3 Hemoglobin 10.9 GM/DL 10.5 GM/DL Hematocrit 32.4 % 30.6 % Mean Corpuscular Volume 94.2 FL 93.5 FL Mean Corpuscular Hemoglobin 31.7 PG 32.1 PG Mean Corpuscular Hemoglobin 33.7 % 34.3 % Concent Red Cell Distribution Width 15.3 % 14.9 % Platelet Count 210 TH/MM3 231 TH/MM3 Mean Platelet Volume 7.9 FL 7.9 FL Neutrophils (%) (Auto) 82.5 % 79.0 % Lymphocytes (%) (Auto) 6.6 % 10.0 % Monocytes (%) (Auto) 9.4 % 8.6 % Eosinophils (%) (Auto) 1.3 % 2.1 % Basophils (%) (Auto) 0.2 % 0.3 % Neutrophils # (Auto) 9.4 TH/MM3 7.6 TH/MM3 Lymphocytes # (Auto) 0.8 TH/MM3 1.0 TH/MM3 Monocytes # (Auto) 1.1 TH/MM3 0.8 TH/MM3 Eosinophils # (Auto) 0.1 TH/MM3 0.2 TH/MM3 Basophils # (Auto) 0.0 TH/MM3 0.0 TH/MM3 CBC Comment DIFF FINAL DIFF FINAL Differential Comment Sodium Level 138 MEQ/L 139 MEQ/L Potassium Level 3.6 MEQ/L 3.9 MEQ/L Chloride Level 104 MEQ/L 107 MEQ/L Carbon Dioxide Level 24.2 MEQ/L 22.4 MEQ/L Anion Gap 10 MEQ/L 10 MEQ/L Blood Urea Nitrogen 21 MG/DL 9 MG/DL Creatinine 1.00 MG/DL 0.66 MG/DL Estimat Glomerular Filtration 74 ML/MIN 119 ML/MIN Rate Random Glucose 119 MG/DL 97 MG/DL Calcium Level 7.8 MG/DL 8.2 MG/DL Magnesium Level 1.8 MG/DL 1.4 MG/DL Imaging Last Impressions Chest X-Ray 06/17/16 1208 Signed Impressions: Service Date/Time: Friday, June 17, 2016 12:28 - CONCLUSION: Negative chest for acute disease. Renzo Diane MD FACR Objective Remarks General: NAD, AAOx3 Chest: Coarse breath sounds bilaterally Cardiac: Regular Abd: +BS, soft ND/NT Ext: No edema A/P Problem List: (1) Hypotension Status: Resolved Plan: - Early sepsis versus accidental extra dose of blood pressure medication - Pt did have fever on 06/17/16 with Tmax 101.9, no fevers since 06/17/16 - CXR was negative for acute disease - Pt did appear to be dehydrated at admission. - Pt was covered with broad-spectrum antibiotic therapy: Zosyn and vancomycin, we will convert to oral antibiotics with Levaquin today - Stop intravenous fluids - Hold all blood pressure medications - Blood cultures (06/17) with NGTD - DVT prophylaxis (2) Alcohol withdrawal Status: Acute Plan: - Although patient states that he has not been drinking alcohol since previous hospitalization, His presentation is highly suspicious for continued alcohol abuse - Cont. Librium but decreased to 10 mg by mouth 3 times a day - Ativan when necessary - Multivitamin, thiamine, folate (3) PAD (peripheral artery disease) Status: Chronic Plan: - Continue aspirin, Plavix, statin (4) Physical deconditioning Status: Acute Plan: - Pt did well with physical therapy today (5) Anxiety Status: Chronic Plan: - Continue Lexapro, Ativan when necessary (6) COPD (chronic obstructive pulmonary disease) Status: Acute Plan: - Cont. DuoNeb treatments but we will schedule them Q4H WA and Q2H PRN - Continue outpatient medication regimen Assessment and Plan Patient examined. Assessment and plan formulated with Ana Norwood PA-C. I agree with the above. Problem Qualifiers (1) Alcohol withdrawal: Qualified Code: F10.239 - Alcohol withdrawal, with unspecified complication (2) COPD (chronic obstructive pulmonary disease): Ana Norwood Jun 19, 2016 13:56 Zaheer Murcia DO Jun 21, 2016 11:08
[2016-06-19] MEDS ORDERED: LEVOFLOXACIN 500 MG TAB PO ONE (14:00)
[2016-06-19] MEDS ORDERED: chlordiazePOXIDE 25 MG CAP PO PRN (15:00)
[2016-06-19] MEDS ORDERED: PIPERACIL-TAZO 4.5 GM PREMIX 100 ML IV SCH (17:00)
[2016-06-19] MEDS: ATORVASTATIN 20 MG TAB PO SCH (19:44)
[2016-06-19] MEDS: LORazepam 2 MG/ML VIAL IV PUSH PRN (19:53)
[2016-06-20] VITALS (10 sets, daily range): BP systolic 128–157; BP diastolic 77–83; PULSE 52–123; RESP 16–20; TEMP 98.5–99.2; O2SAT 94–98
[2016-06-20] MEDS: RESP: ALBUTEROL 2.5 MG/IPRATROPIUM 0.5 MG NEB (PRN) NEB (02:08)
[2016-06-20] MEDS: RESP: ALBUTEROL 2.5 MG/IPRATROPIUM 0.5 MG NEB (SCH) NEB ×4 (07:51→21:05)
[2016-06-20] MEDS: SODIUM CHLORIDE 0.9% FLUSH 5 ML FLUSH FLUSH SCH ×2 (08:12→20:41)
[2016-06-20] MEDS: FLUTICASONE 100 MCG/VILANTEROL 25 MCG INHALER INH SCH (08:12)
[2016-06-20] MEDS: CLOPIDOGREL 75 MG TAB PO SCH (08:14)
[2016-06-20] MEDS: ESCITALOPRAM OXALATE 10 MG TAB PO SCH (08:14)
[2016-06-20] MEDS: ASPIRIN EC 81 MG TABEC PO SCH (08:14)
[2016-06-20] MEDS: LEVOFLOXACIN 500 MG TAB PO SCH (08:14)
[2016-06-20] MEDS: MAGNESIUM OXIDE 400 MG TAB PO SCH (14:24)
--- NOTE | 2016-06-20 14:53 | MB ---
cc: GWEN RODRIGUEZ M.D. DATE OF CONSULTATION: 06/20/2016 CHIEF COMPLAINT Nonsustained asymptomatic ventricular tachycardia. HISTORY OF PRESENT ILLNESS The patient is a 71-year-old, white, male who is a patient of Dr. Celeste. He was admitted after being seen at the [facility] with profound hypotension. He was picked up and transported on 06/17/2016 with a provisional diagnosis of sepsis. He had no cardiovascular complaints and specifically denies any chest pain or shortness of breath. He denies any palpitation, syncope or presyncope. His blood pressure was reportedly 60 systolic. He has been admitted, hydrated and treated with antibiotics and is feeling well. He has known peripheral vascular disease but denies any history of any cardiac issues. At the time I see him, he is sitting in a chair and asymptomatic and free of cardiovascular complaints. PHYSICAL EXAMINATION GENERAL: On physical exam on general inspection he is an alert pleasant gentleman now lying in bed, in no acute distress. VITAL SIGNS: Reveal a blood pressure of 155/82, pulse of 80, respirations of 16. Patient is afebrile. Saturations 98% on room air. HEENT/NECK: Unremarkable for the patient's age. LUNGS: Clear. CARDIOVASCULAR: Regular rate and rhythm without murmurs, rubs, clicks or gallops. ABDOMEN: Soft without masses, tenderness, organomegaly. Bowel sounds within normal limits. GENITAL/RECTAL: Deferred. EXTREMITIES: No cyanosis, clubbing or edema. NEUROLOGIC: Grossly intact without focal findings. PULSES: Peripheral pulses are reduced bilaterally in the feet. LABORATORY DATA Magnesium is 1.4. Basic metabolic panel was normal. Coagulation studies are normal. CBC shows a mild anemia with a hematocrit of 30.6%, it was otherwise unremarkable. Two blood cultures are negative. Influenza screen is negative. Chest x-ray is unremarkable. No EKG has been performed. Troponin was normal on admission. Telemetry strips show one episode of four beats of ventricular tachycardia. There is another episode of a wide complex tachycardia that could be supraventricular tachycardia with a right bundle branch block configuration but it is irregular and there is a frontal plane axis shift for ventricular tachycardia is not excluded. ASSESSMENT/PLAN Essentially the patient has no known cardiac disease but is at increased risk for coronary artery disease as he has known peripheral vascular disease. I would recommend stress nuclear testing and echocardiography. I would suggest keeping his potassium and magnesium in the normal range. Will order appropriate studies. Subsequent therapy to be determined. MD TIMO Bullard/BILL /2:02 PM /2:36 PM
[2016-06-20] MEDS ORDERED: MAGNESIUM SULFATE 1 GM PREMIX 100 ML IV ONE (15:00)
--- NOTE | 2016-06-20 16:59 | HHI.PR ---
Subjective Remarks Pt had an episode of nonsustained, asymptomatic VT early this AM. Pt denies cp, palpitations, increased SOB, n/v, or diaphoresis Objective Vitals Vital Signs Date Time Temp Pulse Resp B/P Pulse Ox O2 Delivery O2 Flow Rate FiO2 06/20/16 12:00 98.6 109 18 143/77 96 06/20/16 10:22 123 06/20/16 08:05 Nasal Cannula 2.00 21 06/20/16 08:00 98.7 52 20 157/81 94 06/20/16 07:54 97 21 06/20/16 04:16 99.1 108 16 155/82 98 06/20/16 02:12 97 Nasal Cannula 2.00 06/19/16 23:59 98.8 101 18 150/78 97 06/19/16 20:18 99.2 91 20 150/80 95 06/19/16 20:00 Nasal Cannula 2.00 06/19/16 06/19/16 06/20/16 15:00 23:00 07:00 Intake Total 1487 ml 800 ml 500 ml Output Total 800 ml 1300 ml Balance 687 ml 800 ml -800 ml Intake Oral 480 ml 800 ml 500 ml IV Total 1007 ml Output Urine Total 800 ml 1300 ml # Bowel Movements 1 Result Diagram: 06/19/16 0608 06/19/16 0608 Imaging Last Impressions Chest X-Ray 06/17/16 1208 Signed Impressions: Service Date/Time: Friday, June 17, 2016 12:28 - CONCLUSION: Negative chest for acute disease. Renzo Diane MD FACR Objective Remarks General: NAD, AAOx3 Chest: Coarse breath sounds bilaterally Cardiac: Regular Abd: +BS, soft ND/NT Ext: No edema A/P Problem List: (1) NSVT (nonsustained ventricular tachycardia) Status: Acute Plan: - comgmt with Cardiology - telemetry - obtain echocardigram - obtain lexiscan - anticipate discharge 06/22/16 (2) Hypotension Status: Resolved Plan: - Early sepsis versus accidental extra dose of blood pressure medication - Pt did have fever on 06/17/16 with Tmax 101.9, no fevers since 06/17/16 - CXR was negative for acute disease - Pt did appear to be dehydrated at admission. - Pt was covered with broad-spectrum antibiotic therapy: Zosyn and vancomycin, we will converted to oral antibiotics with Levaquin (06/19/16 - present) - Hold all blood pressure medications - Blood cultures (06/17) with NGTD - DVT prophylaxis (3) Alcohol withdrawal Status: Acute Plan: - Although patient states that he has not been drinking alcohol since previous hospitalization, His presentation is highly suspicious for continued alcohol abuse - Librium 10 mg by mouth 3 times a day - Ativan when necessary - Multivitamin, thiamine, folate (4) PAD (peripheral artery disease) Status: Chronic Plan: - Continue aspirin, Plavix, statin (5) Physical deconditioning Status: Acute Plan: - Pt did well with physical therapy today (6) Anxiety Status: Chronic Plan: - Continue Lexapro, Ativan when necessary (7) COPD (chronic obstructive pulmonary disease) Status: Acute Plan: - Cont. DuoNeb treatments but we will schedule them Q4H WA and Q2H PRN - Continue outpatient medication regimen Problem Qualifiers (1) Alcohol withdrawal: Qualified Code: F10.239 - Alcohol withdrawal, with unspecified complication (2) COPD (chronic obstructive pulmonary disease): Zaheer Murcia DO Jun 20, 2016 16:59
[2016-06-20] MEDS: ATORVASTATIN 20 MG TAB PO SCH (20:40)
[2016-06-20] MEDS: LORazepam 2 MG/ML VIAL IV PUSH PRN (20:41)
[2016-06-21] VITALS (9 sets, daily range): BP systolic 119–160; BP diastolic 69–79; PULSE 99–123; RESP 18–22; TEMP 98.2–99.2; O2SAT 95–98
[2016-06-21] MEDS: RESP: ALBUTEROL 2.5 MG/IPRATROPIUM 0.5 MG NEB (SCH) NEB ×3 (07:57→19:23)
[2016-06-21] MEDS: ESCITALOPRAM OXALATE 10 MG TAB PO SCH (08:51)
[2016-06-21] MEDS: LEVOFLOXACIN 500 MG TAB PO SCH (08:51)
[2016-06-21] MEDS: MULTIVITAMIN TAB PO SCH (08:51)
[2016-06-21] MEDS: THIAMINE HCL 100 MG TAB PO SCH (08:51)
[2016-06-21] MEDS: FOLIC ACID 1 MG TAB PO SCH (08:51)
[2016-06-21] MEDS: CLOPIDOGREL 75 MG TAB PO SCH (08:51)
[2016-06-21] MEDS: MAGNESIUM OXIDE 400 MG TAB PO SCH (08:52)
[2016-06-21] MEDS: ASPIRIN EC 81 MG TABEC PO SCH (08:55)
[2016-06-21] MEDS: FLUTICASONE 100 MCG/VILANTEROL 25 MCG INHALER INH SCH (08:58)
[2016-06-21 08:59] LABS: AUTOMATED NEUTROPHIL # 5.7 TH/MM3 (1.8-7.7); BASOPHIL # 0.1 TH/MM3 (0-0.2); BASOPHIL % 0.7 % (0.0-2.0); EOSINOPHIL # 0.3 TH/MM3 (0-0.4); EOSINOPHIL % 3.2 % (0.0-4.0); HEMATOCRIT 32.7 % (39.0-51.0); LYMPH % 15.8 % (9.0-44.0); LYMPHOCYTE # 1.3 TH/MM3 (1.0-4.8); MEAN CELL VOLUME 94.2 FL (80.0-100.0); MEAN CORPUSCULAR HEMOGLOBIN 31.9 PG (27.0-34.0); MEAN CORPUSCULAR HGB CONC 33.9 % (32.0-36.0); MONO % 12.3 % (0.0-8.0); PLATELET COUNT 303 TH/MM3 (150-450); RED BLOOD COUNT 3.47 MIL/MM3 (4.50-5.90); RED CELL DISTRIBUTION WIDTH 14.9 % (11.6-17.2); WHITE BLOOD COUNT 8.4 TH/MM3 (4.0-11.0)
[2016-06-21] MEDS: SODIUM CHLORIDE 0.9% FLUSH 5 ML FLUSH FLUSH SCH ×2 (09:01→20:32)
[2016-06-21 09:05] LABS: HEMO FLAGS AUTO DIFF
[2016-06-21 09:35] LABS: BICARBONATE 23.7 MEQ/L (21.0-32.0); MAGNESIUM 1.6 MG/DL (1.5-2.5); POTASSIUM 3.8 MEQ/L (3.5-5.1)
[2016-06-21 09:46] LABS: PLATELET ESTIMATE SMEAR NORMAL (NORMAL); PLATELET MORPHOLOGY NORMAL (NORMAL); SCAN/DIFF AUTO DIFF CONFIRMED
[2016-06-21] MEDS ORDERED: REGADENOSON INJ 0.4 MG/5 ML SYR ONE (11:08)
--- NOTE | 2016-06-21 12:19 | RADRPT ---
EXAM DATE/TIME: 06/21/2016 10:40 [facility] COMPARISON: CHEST SINGLE AP, June 17, 2016, 12:28. INDICATIONS : Hypotension and tachycardia. Coronary atherosclerosis. Congestive heart failure. DOSE: 25.6 mCi Tc99m Myoview at stress. 8.3 mCi Tc99m Myoview at rest. 0.4 mg Lexiscan STRESS SYMPTOMS: Dyspnea and fingers tingling. EJECTION FRACTION: 42% MEDICAL HISTORY : Hypertension. Chronic obstructive pulmonary disease. Hypercholesterolemia. Smoker. SURGICAL HISTORY : Bilateral hip surgeries. ENCOUNTER: Initial ACUITY: 1 day PAIN SCALE: 0/10 LOCATION: chest TECHNIQUE: The patient underwent pharmacologic stress with infusion of prescribed dose. Continuous ECG tracing was monitored during stress. Gated SPECT imaging was performed after stress and conventional SPECT i maging was performed at rest. The examination was performed on a SPECT/CT scanner, both attenuation and non-corrected datasets were reviewed. FINDINGS: DISTRIBUTION: The maximum perfused segment at stress is in the anterolateral wall. There is patchy appearance to th e perfusion images. PERFUSION STUDY: Left ventricle appears mildly enlarged. No definite fixed or reversible perfusion defect is identifie d. GATED STUDY: No focal wall motion abnormality is identified. There is mild global hypokinesia. CONCLUSION: 1. No definite fixed or reversible perfusion defect is identified. There is relatively patchy distrib ution of the radiopharmaceutical within the left ventricle. 2. Reduced left ventricle ejection fraction with no focal wall motion abnormality present. RISK CATEGORY: Intermediate (1-3% Annual Mortality Rate) Vidal Valentine MD on June 21, 2016 at 12:15 Board Certified Radiologist. This report was verified electronically.
--- NOTE | 2016-06-21 13:39 | PD.CARD.PN ---
Subjective Subjective Remarks No CV complaints. Objective Medications Current Medications Medications (Trade) Dose Ordered Sig/Helen Route Start Time Stop Time Status Last Admin (NS Flush) 2 ml UNSCH PRN FLUSH 06/17/16 14:30 (NS Flush) 2 ml BID FLUSH 06/17/16 21:00 06/21/16 09:01 (Tylenol) 650 mg Q4H PRN PO 06/17/16 15:00 06/17/16 20:20 (Zofran Inj) 4 mg Q6HR PRN IVP 06/17/16 15:00 (Dulcolax Supp) 10 mg DAILY PRN ND 06/17/16 15:00 (Milk Of Magngt Liq) 30 ml Q12HR PRN PO 06/17/16 15:00 (Narcan Inj) 0.4 mg UNSCH PRN IV 06/17/16 14:30 (Lipitor) 20 mg HS PO 06/17/16 21:00 06/20/16 20:40 (Plavix) 75 mg DAILY PO 06/18/16 09:00 06/21/16 08:51 (Lexapro) 10 mg DAILY PO 06/18/16 09:00 06/21/16 08:51 (Breo Ellipta 100-25 Inh) 1 puff DAILY INH 06/18/16 09:00 06/21/16 08:58 (Ativan Inj) 1 mg Q6H PRN IV PUSH 06/17/16 16:15 06/20/16 20:41 (Ecotrin Ec) 81 mg DAILY PO 06/18/16 09:00 06/21/16 08:55 (Levaquin) 500 mg DAILY PO 06/20/16 09:00 06/21/16 08:51 (Librium) 10 mg TID PRN PO 06/19/16 15:00 (Mag-Ox) 400 mg DAILY PO 06/20/16 14:15 06/21/16 08:52 (Theragran) 1 tab DAILY PO 06/21/16 09:00 06/21/16 08:51 (Vitamin B1) 100 mg DAILY PO 06/21/16 09:00 06/21/16 08:51 (Folate) 1 mg DAILY PO 06/21/16 09:00 06/21/16 08:51 Vital Signs / I&O Vital Signs Date Time Temp Pulse Resp B/P Pulse Ox O2 Delivery O2 Flow Rate FiO2 06/21/16 12:16 98.2 105 22 125/76 98 06/21/16 08:00 98.4 99 18 160/77 97 06/21/16 08:00 Nasal Cannula 2.00 06/21/16 08:00 96 Nasal Cannula 2.00 06/21/16 04:25 98.9 102 20 146/69 96 06/21/16 00:00 98.4 111 18 145/79 97 06/20/16 21:08 98 Nasal Cannula 2.00 06/20/16 20:41 Nasal Cannula 2.00 06/20/16 20:26 99.2 112 20 149/83 96 06/20/16 20:23 117 06/20/16 16:00 98.5 92 20 128/77 97 I/O 06/20/16 06/20/16 06/20/16 06/21/16 06/21/16 06/21/16 07:00 15:00 23:00 07:00 15:00 23:00 Intake Total 500 ml 1082 ml 750 ml 650 ml Output Total 1300 ml 600 ml 900 ml 1200 ml Balance -800 ml 482 ml -150 ml -550 ml Intake Oral 500 ml 1080 ml 750 ml 650 ml IV Total 2 ml Output Urine Total 1300 ml 600 ml 900 ml 1200 ml # Bowel Movements 1 3 0 3 Physical Exam HEENTN: Negative Lungs: Clear CV: WNL Abd: Negative. + BS. Ext: no edema and no JVD Neuro: No overt focal findings. Laboratory Laboratory Tests Test 06/21/16 07:16 White Blood Count 8.4 TH/MM3 Red Blood Count 3.47 MIL/MM3 Hemoglobin 11.1 GM/DL Hematocrit 32.7 % Mean Corpuscular Volume 94.2 FL Mean Corpuscular Hemoglobin 31.9 PG Mean Corpuscular Hemoglobin 33.9 % Concent Red Cell Distribution Width 14.9 % Platelet Count 303 TH/MM3 Mean Platelet Volume 7.7 FL Neutrophils (%) (Auto) 68.0 % Lymphocytes (%) (Auto) 15.8 % Monocytes (%) (Auto) 12.3 % Eosinophils (%) (Auto) 3.2 % Basophils (%) (Auto) 0.7 % Neutrophils # (Auto) 5.7 TH/MM3 Lymphocytes # (Auto) 1.3 TH/MM3 Monocytes # (Auto) 1.0 TH/MM3 Eosinophils # (Auto) 0.3 TH/MM3 Basophils # (Auto) 0.1 TH/MM3 CBC Comment AUTO DIFF Differential Comment AUTO DIFF CONFIRMED Platelet Estimate NORMAL Platelet Morphology Comment NORMAL Sodium Level 136 MEQ/L Potassium Level 3.8 MEQ/L Chloride Level 101 MEQ/L Carbon Dioxide Level 23.7 MEQ/L Anion Gap 11 MEQ/L Blood Urea Nitrogen 11 MG/DL Creatinine 0.75 MG/DL Estimat Glomerular Filtration 103 ML/MIN Rate Random Glucose 110 MG/DL Calcium Level 8.4 MG/DL Magnesium Level 1.6 MG/DL Troponin I 0.04 NG/ML Imaging Last 48 hours Impressions Myocardial Perfusion Scan Nuc Med 06/21/16 0000 Signed Impressions: Service Date/Time: Tuesday, June 21, 2016 10:40 - CONCLUSION: 1. No definite fixed or reversible perfusion defect is identified. There is relatively patchy distribution of the radiopharmaceutical within the left ventricle. 2. Reduced left ventricle ejection fraction with no focal wall motion abnormality present. RISK CATEGORY: Intermediate (1-3%% Annual Mortality Rate) Vidal Valentine MD Assessment and Plan Assessment and Plan No further VT reported or noted on telemetry strips in chart. No overt ischemia on nuclear but patchy uptake and evidence of some cardiomyopathy. ECHO pending. Dr. Celeste to f/u in AM and make final decisions. Wendy Camp MD Jun 21, 2016 13:39
--- NOTE | 2016-06-21 14:38 | EKG ---
Date Performed: 06/20/2016 Time Performed: 21:58:38 PTAGE: 71 years EKG: SINUS TACHYCARDIA WITH OCCASIONAL SUPRAVENTRICULAR PREMATURE COMPLEXES ABNORMAL RHYTHM ECG Compared to prior tracing no significant change PREVIOUS TRACING : 05/14/2016 18.04 DOCTOR: Kingston Angelo Interpretating Date/Time 06/21/2016 14:37:22
--- NOTE | 2016-06-21 14:38 | EKG ---
Date Performed: 06/21/2016 Time Performed: 07:56:32 PTAGE: 71 years EKG: Sinus rhythm WITH FREQUENT SUPRAVENTRICULAR PREMATURE COMPLEXES ABNORMAL RHYTHM ECG Compared to prior tracing no significant change PREVIOUS TRACING : 06/20/2016 21.58 DOCTOR: Kingston Angelo Interpretating Date/Time 06/21/2016 14:37:32
--- NOTE | 2016-06-21 15:02 | HHI.PR ---
Subjective Remarks No new complaints. Objective Vitals Vital Signs Date Time Temp Pulse Resp B/P Pulse Ox O2 Delivery O2 Flow Rate FiO2 06/21/16 12:16 98.2 105 22 125/76 98 06/21/16 08:00 98.4 99 18 160/77 97 06/21/16 08:00 Nasal Cannula 2.00 06/21/16 08:00 96 Nasal Cannula 2.00 06/21/16 04:25 98.9 102 20 146/69 96 06/21/16 00:00 98.4 111 18 145/79 97 06/20/16 21:08 98 Nasal Cannula 2.00 06/20/16 20:41 Nasal Cannula 2.00 06/20/16 20:26 99.2 112 20 149/83 96 06/20/16 20:23 117 06/20/16 16:00 98.5 92 20 128/77 97 06/20/16 06/20/16 06/21/16 15:00 23:00 07:00 Intake Total 1082 ml 750 ml 650 ml Output Total 600 ml 900 ml 1200 ml Balance 482 ml -150 ml -550 ml Intake Oral 1080 ml 750 ml 650 ml IV Total 2 ml Output Urine Total 600 ml 900 ml 1200 ml # Bowel Movements 3 0 3 Result Diagram: 06/21/16 0716 06/21/16 0716 Imaging Last Impressions Chest X-Ray 06/17/16 1208 Signed Impressions: Service Date/Time: Friday, June 17, 2016 12:28 - CONCLUSION: Negative chest for acute disease. Renzo Diane MD FACR Objective Remarks General: NAD, AAOx3 Chest: clear x b/l Cardiac: Regular Abd: +BS, soft ND/NT Ext: No edema A/P Problem List: (1) NSVT (nonsustained ventricular tachycardia) Status: Acute Plan: - NO further VT episodes since 06/20 on telemetry - comgmt with Cardiology - obtain echocardigram --> pending - lexiscan (06/21/16) --> No overt ischemia on nuclear but patchy uptake and evidence of some cardiomyopathy - await review of case by [facility] Cardiology (2) Hypotension Status: Resolved Plan: - Early sepsis versus accidental extra dose of blood pressure medication - Pt did have fever on 06/17/16 with Tmax 101.9, no fevers since 06/17/16 - CXR was negative for acute disease - Pt did appear to be dehydrated at admission. - Pt was covered with broad-spectrum antibiotic therapy: Zosyn and vancomycin, we will converted to oral antibiotics with Levaquin (06/19/16 - present) - resume lisinopril at 10mg BID, observe prior to increasing back to 20mg BID - Blood cultures (06/17) with NGTD - DVT prophylaxis (3) Alcohol withdrawal Status: Acute Plan: - Although patient states that he has not been drinking alcohol since previous hospitalization, His presentation is highly suspicious for continued alcohol abuse - Ativan when necessary - Multivitamin, thiamine, folate (4) PAD (peripheral artery disease) Status: Chronic Plan: - Continue aspirin, Plavix, statin (5) Physical deconditioning Status: Acute Plan: - Pt did well with physical therapy today (6) Anxiety Status: Chronic Plan: - Continue Lexapro, Ativan when necessary (7) COPD (chronic obstructive pulmonary disease) Status: Acute Plan: - Cont. DuoNeb treatments but we will schedule them Q4H WA and Q2H PRN - Continue outpatient medication regimen Problem Qualifiers (1) Alcohol withdrawal: Qualified Code: F10.239 - Alcohol withdrawal, with unspecified complication (2) COPD (chronic obstructive pulmonary disease): Zaheer Murcia DO Jun 21, 2016 15:02 Qualified Code: F10.239 - Alcohol withdrawal, with unspecified complication (2) COPD (chronic obstructive pulmonary disease): Zaheer Murcia DO Jun 21, 2016 15:02
[2016-06-21] MEDS ORDERED: LISINOPRIL 20 MG TAB PO SCH (15:15)
[2016-06-21] MEDS: LISINOPRIL 10 MG TAB PO SCH (16:38)
[2016-06-21] MEDS: RESP: ALBUTEROL 2.5 MG/IPRATROPIUM 0.5 MG NEB (PRN) NEB (16:54)
[2016-06-21] MEDS: ATORVASTATIN 20 MG TAB PO SCH (20:31)
[2016-06-21] MEDS: LORazepam 2 MG/ML VIAL IV PUSH PRN (20:31)
[2016-06-22] VITALS: BP 133/75; PULSE 102; RESP 20; TEMP 97.8; O2SAT 95
[2016-06-22 04:00] VITALS: BP 132/75; PULSE 77; PULSE 99; RESP 14; RESP 16; TEMP 97.3; TEMP 97.5; O2SAT 97
--- NOTE | 2016-06-22 07:53 | PD.CARD.PN ---
Subjective Subjective Remarks Feels well. No chest pain or dyspnea Objective Vital Signs / I&O Vital Signs Date Time Temp Pulse Resp B/P Pulse Ox O2 Delivery O2 Flow Rate FiO2 06/22/16 04:00 97.5 99 16 132/75 97 06/22/16 04:00 97.5 99 16 132/75 97 06/22/16 00:00 Nasal Cannula 2.00 06/22/16 00:00 97.8 102 20 133/75 95 06/21/16 20:18 106 06/21/16 20:00 Nasal Cannula 2.00 06/21/16 20:00 99.2 110 22 135/79 98 06/21/16 19:23 95 Nasal Cannula 2.00 06/21/16 16:00 98.8 105 18 119/78 96 06/21/16 12:16 98.2 105 22 125/76 98 06/21/16 08:20 123 06/21/16 08:00 98.4 99 18 160/77 97 06/21/16 08:00 Nasal Cannula 2.00 06/21/16 08:00 96 Nasal Cannula 2.00 I/O 06/21/16 06/21/16 06/21/16 06/22/16 06/22/16 06/22/16 07:00 15:00 23:00 07:00 15:00 23:00 Intake Total 650 ml 480 ml Output Total 1200 ml 100 ml 150 ml Balance -550 ml 480 ml -100 ml -150 ml Intake Oral 650 ml 480 ml Output Urine Total 1200 ml 100 ml 150 ml # Voids 4 1 # Bowel Movements 3 2 Imaging Lexiscan negative for ischemia Assessment and Plan Assessment and Plan Await echo. Once done ok to Luis Daniel/Naeem Bass MD Jun 22, 2016 07:53
[2016-06-22 08:00] VITALS: BP 144/77; PULSE 95; RESP 20; TEMP 98.6; O2SAT 93
[2016-06-22 08:03] LABS: BATH SALTS (MDPV) UR NEG (NEG); ECSTASY (MDMA) UR NEG (NEG); HEROIN (6-ACETYLMORPHINE) UR NEG (NEG); K2 SPICE UR NEG (NEG); OBMETHADONE UR NEG (NEG); OXYCODONE (PERCODAN) NEG (NEG); PHENCYCLIDINE URINE NEG (NEG)
[2016-06-22] MEDS: LISINOPRIL 10 MG TAB PO SCH (08:59)
[2016-06-22] MEDS: ESCITALOPRAM OXALATE 10 MG TAB PO SCH (08:59)
[2016-06-22] MEDS: MULTIVITAMIN TAB PO SCH (08:59)
[2016-06-22] MEDS: MAGNESIUM OXIDE 400 MG TAB PO SCH (08:59)
[2016-06-22] MEDS: THIAMINE HCL 100 MG TAB PO SCH (08:59)
[2016-06-22] MEDS: ASPIRIN EC 81 MG TABEC PO SCH (09:00)
[2016-06-22] MEDS: SODIUM CHLORIDE 0.9% FLUSH 5 ML FLUSH FLUSH SCH (09:00)
[2016-06-22] MEDS: CLOPIDOGREL 75 MG TAB PO SCH (09:00)
[2016-06-22] MEDS: FOLIC ACID 1 MG TAB PO SCH (09:00)
[2016-06-22] MEDS: FLUTICASONE 100 MCG/VILANTEROL 25 MCG INHALER INH SCH (09:00)
[2016-06-22] MEDS: LEVOFLOXACIN 500 MG TAB PO SCH (09:00)
[2016-06-22 09:23] VITALS: O2SAT 97
[2016-06-22] MEDS: RESP: ALBUTEROL 2.5 MG/IPRATROPIUM 0.5 MG NEB (SCH) NEB (09:25)
--- NOTE | 2016-06-22 09:31 | HHI.PR ---
Subjective Remarks doing ok. eager for d/c Objective Vitals heart reg lung cta abd snt ext no edema Vital Signs Date Time Temp Pulse Resp B/P Pulse Ox O2 Delivery O2 Flow Rate FiO2 06/22/16 09:23 97 21 06/22/16 08:00 98.6 95 20 144/77 93 06/22/16 04:00 97.5 99 16 132/75 97 06/22/16 04:00 97.5 99 16 132/75 97 06/22/16 00:00 Nasal Cannula 2.00 06/22/16 00:00 97.8 102 20 133/75 95 06/21/16 20:18 106 06/21/16 20:00 Nasal Cannula 2.00 06/21/16 20:00 99.2 110 22 135/79 98 06/21/16 19:23 95 Nasal Cannula 2.00 06/21/16 16:00 98.8 105 18 119/78 96 06/21/16 12:16 98.2 105 22 125/76 98 06/21/16 06/21/16 06/22/16 15:00 23:00 07:00 Intake Total 480 ml Output Total 100 ml 150 ml Balance 480 ml -100 ml -150 ml Intake Oral 480 ml Output Urine Total 100 ml 150 ml # Voids 4 1 # Bowel Movements 2 Result Diagram: 06/21/16 0716 06/21/16 0716 Imaging Last Impressions Chest X-Ray 06/17/16 1208 Signed Impressions: Service Date/Time: Friday, June 17, 2016 12:28 - CONCLUSION: Negative chest for acute disease. Renzo Diane MD FACR A/P Problem List: (1) NSVT (nonsustained ventricular tachycardia) Status: Acute Plan: - NO further VT episodes since 06/20 on telemetry - comgmt with Cardiology - obtain echocardigram --> pending result - lexiscan (06/21/16) --> No overt ischemia on nuclear but patchy uptake and evidence of some cardiomyopathy - Discussed with dr Yuen. echo today then d/c later today. (2) Hypotension Status: Resolved Plan: - Early sepsis versus accidental extra dose of blood pressure medication - Pt did have fever on 06/17/16 with Tmax 101.9, no fevers since 06/17/16 - CXR was negative for acute disease - Pt did appear to be dehydrated at admission. - Pt was covered with broad-spectrum antibiotic therapy: Zosyn and vancomycin, converted to oral antibiotics with Levaquin (06/19/16 - present) - Blood cultures (06/17) with NGTD - DVT prophylaxis bp meds lowered and bp stable. f/u closely after d/c (3) Alcohol withdrawal Status: Acute Plan: - Although patient states that he has not been drinking alcohol since previous hospitalization, His presentation is highly suspicious for continued alcohol abuse - Ativan when necessary - Multivitamin, thiamine, folate (4) PAD (peripheral artery disease) Status: Chronic Plan: - Continue aspirin, Plavix, statin (5) Physical deconditioning Status: Acute Plan: - Pt did well with physical therapy today (6) Anxiety Status: Chronic Plan: - Continue Lexapro, Ativan when necessary (7) COPD (chronic obstructive pulmonary disease) Status: Chronic Plan: - Cont. DuoNeb treatments but we will schedule them Q4H WA and Q2H PRN - Continue outpatient medication regimen Problem Qualifiers (1) Alcohol withdrawal: Qualified Code: F10.239 - Alcohol withdrawal, with unspecified complication (2) COPD (chronic obstructive pulmonary disease): Milan Bazzi MD Jun 22, 2016 09:31
[2016-06-22 10:39] VITALS: PULSE 86
[2016-06-22 12:00] VITALS: BP 150/87; PULSE 118; RESP 20; TEMP 98.7; O2SAT 95
[2016-06-22] MEDS ORDERED: LEVA500T PO (12:10)
[2016-06-22] MEDS ORDERED: LISI10TA3 PO (12:10)
--- NOTE | 2016-06-22 12:22 | HHI.DCPOC ---
Discharge Care Plan Diagnosis: (1) SUSAN (acute kidney injury) (2) Hypotension (3) NSVT (nonsustained ventricular tachycardia) (4) Anxiety (5) PAD (peripheral artery disease) (6) Dehydration Goals to Promote Your Health * To prevent worsening of your condition and complications * To maintain your health at the optimal level Directions to Meet Your Goals Take your medications as prescribed Follow your dietary instruction Follow activity as directed Keep your appointments as scheduled Take your immunizations and boosters as scheduled If your symptoms worsen call your PCP, if no PCP go to Urgent Care Center or Emergency Room Smoking is Dangerous to Your Health. Avoid second hand smoke Call the 24-hour hour crisis hotline for domestic abuse at Milan Bazzi MD Jun 22, 2016 12:22
--- NOTE | 2016-06-23 08:35 | EC ---
Study Study Date:06/22/2016 STUDY CONCLUSIONS SUMMARY - Left ventricle: The cavity size was normal. Wall thickness was normal. Systolic function was normal. The estimated ejection fraction was in the range of 50% to 55%. Wall motion was normal; there were no regional wall motion abnormalities. - Aortic valve: Valve area: 2.33cm^2(VTI). Valve area: 2.15cm^2 (Vmax). - Pulmonary arteries: PA peak pressure: 32mm Hg (S). If LV function is below 40, please consider prescribing an ACEI or ARB or document rationale for non-use. PROCEDURE DATA STUDY STATUS: Elective. Procedure: Transthoracic echocardiography. Image quality was good. Scanning was performed from the parasternal, apical, and subcostal acoustic windows. Study completion: The patient tolerated the procedure well. Transthoracic echocardiography. M-mode, complete 2D, complete spectral Doppler, and color Doppler. Height: Height: 68in. Weight: Weight: 184.6lb. Body mass index: BMI: 28.1kg/m^2. Body surface area: BSA: 1.98m^2. Patient status: Inpatient. CARDIAC ANATOMY LEFT VENTRICLE: The cavity size was normal. Wall thickness was normal. Systolic function was normal. The estimated ejection fraction was in the range of 50% to 55%. Wall motion was normal; there were no regional wall motion abnormalities. AORTIC VALVE: Trileaflet; mildly thickened leaflets. Doppler: Transvalvular velocity was within the normal range. There was no stenosis. No regurgitation. Valve area: 2.33cm^2(VTI). Indexed valve area: 1.18cm^2/m^2 (VTI). Valve area: 2.15cm^2 (Vmax). Indexed valve area: 1.09cm^2/m^2 (Vmax). Mean gradient: 4mm Hg (S). AORTA: Aortic root: The aortic root was normal in size. MITRAL VALVE: Structurally normal valve. Doppler: Transvalvular velocity was within the normal range. There was no evidence for stenosis. Trace regurgitation. LEFT ATRIUM: The atrium was normal in size. RIGHT VENTRICLE: The cavity size was normal. Wall thickness was normal. PULMONIC VALVE: Doppler: Transvalvular velocity was within the normal range. There was no evidence for stenosis. No regurgitation. TRICUSPID VALVE: Structurally normal valve. Doppler: Transvalvular velocity was within the normal range. Trace regurgitation. PULMONARY ARTERY: The main pulmonary artery was normal-sized. Systolic pressure was within the normal range. RIGHT ATRIUM: The atrium was normal in size. PERICARDIUM: There was no pericardial effusion. SYSTEMIC VEINS: Inferior vena cava: The vessel was normal in size. Patient weight: 184.6lb _Ejection fraction:_ 65-75% _Fractional shortening:_ 32% up to 5Kg 5-11.5Kg 11.6-22.9Kg 23-45Kg 45-57Kg Aortic Root 7-13 <17 13-22 17-27 17-27 LA diam 6-13 <23 24-38 33-47 37-40 RVID 10-17 7-15 7-15 7-18 8-17 LVIDd 12-22 <32 24-38 33-47 37-40 LVPW 2-4 3-6 5-7 6-8 7-8 IVS 2-4 3-6 5-7 6-8 7-8 BASIC MEASUREMENTS ADULT NORMAL Left ventricle LV internal dimension, ED, chordal 50.1 mm 43-52 level, PLAX LV internal dimension, ES, chordal *39.6 mm 23-38 level, PLAX Fractional shortening, chordal level, *21 % >29 PLAX LV posterior wall thickness, ED 10.5 mm IVS/LVPW ratio, ED 0.99 <1.3 Ventricular septum Septal thickness, ED 10.4 mm Aortic valve Leaflet separation 19 mm 15-26 Aorta Root diameter, ED 45 mm Left atrium Anterior-posterior dimension 40 mm Anterior-posterior dimension index 2.02 cm/m^2 <2.2 BASIC MEASUREMENTS ADULT NORMAL Aortic valve Leaflet separation 19 mm 15-26 DOPPLER MEASUREMENTS ADULT NORMAL Main pulmonary artery Pressure, S *32 mm Hg =30 Aortic valve Peak velocity, S 131 cm/s Mean velocity, S 89.2 cm/s VTI, S 21.4 cm Mean gradient, S 4 mm Hg Valve area, VTI 2.33 cm^2 Valve area index, VTI 1.18 cm^2/m^2 Valve area, Vmax 2.15 cm^2 Valve area index, Vmax 1.09 cm^2/m^2 Mitral valve Peak E-wave velocity 60.3 cm/s Peak A-wave velocity 74 cm/s Deceleration time *236 ms 150-230 Peak E/A ratio 0.8 Tricuspid valve Regurgitant peak velocity 267 cm/s Peak RV-RA gradient, S 29 mm Hg Maximal regurgitant velocity 267 cm/s Systemic veins Estimated CVP 5 mm Hg Right ventricle RV pressure, S *34 mm Hg <30 Pulmonic valve Peak velocity, S 70.1 cm/s LEGEND: Mean values are shown as u=mean value. Asterisk (*) hubbard values outside specified normal range. Prepared and signed by Esteban Castañeda [id number]
--- NOTE | 2016-07-16 20:56 | HHI.DS ---
Discharge Summary Admission Date Jun 17, 2016 at 14:46 Discharge Date: Jun 22, 2016 Admitting Diagnosis SIRS r/o Sepsis, SUSAN, Dehydration (1) NSVT (nonsustained ventricular tachycardia) Diagnosis: Principal (2) Hypotension Diagnosis: Principal (3) Alcohol withdrawal Diagnosis: Principal (4) PAD (peripheral artery disease) Diagnosis: Secondary (5) Physical deconditioning Diagnosis: Secondary (6) Anxiety Diagnosis: Secondary (7) COPD (chronic obstructive pulmonary disease) Diagnosis: Secondary Brief History Patient is a 71-year-old male with history of alcohol abuse, COPD, hypertension , anxiety, and peripheral artery disease. Patient was previously hospitalized at [facility] due to alcohol abuse and COPD exacerbation. Patient states that he has not drank any alcohol since his previous hospitalization. Patient is quite tremulous during my examination. Patient was seen today by his commercial account officer, Dr. yeager, for PAD. Patient was found to be hypotensive at Dr. yeager's office with systolic blood pressure readings in the 60s. Patient's initial blood pressure reading on arrival in the ER was 88/50. Patient denies fever, but complains of chills. Patient is tremulous which may be due to alcohol withdrawal, although patient claims that he has not drank since previous hospitalization. Patient was discharged on multiple blood pressure medications including verapamil, Maxzide, and lisinopril. Patient is somewhat confused about his medication regimen and may have taken an accidental additional dose of 1 of his blood pressure medication. In the ER patient received intravenous fluids and Rocephin. Patient's last blood pressure reading was 98/55. Patient denies dizziness, syncope, or palpitations. Patient denies cough or dysuria. Patient denies IV drug use. Hospital Course -admitted for concern of NSVT. - NO further VT episodes since 06/20 on telemetry - comgmt with Cardiology -echocardiogram ef 50-55% - lexiscan (06/21/16) --> No overt ischemia on nuclear but patchy uptake and evidence of some cardiomyopathy - Discussed with dr Yuen. dc home. - Presented with hypotension.Early sepsis versus accidental extra dose of blood pressure medication - Pt did have fever on 06/17/16 with Tmax 101.9, no fevers since 06/17/16 - CXR was negative for acute disease - Pt did appear to be dehydrated at admission. - Pt was covered with broad-spectrum antibiotic therapy: Zosyn and vancomycin, converted to oral antibiotics with Levaquin (06/19/16 - present) - Blood cultures (06/17) with NGTD - DVT prophylaxis --bp meds lowered and bp stable. f/u closely after d/c - Although patient states that he has not been drinking alcohol since previous hospitalization, His presentation is highly suspicious for continued alcohol abuse Pt Condition on Discharge: Stable Discharge Disposition: Discharge Home Discharge Instructions DIET: Follow Instructions for: Heart Healthy Diet Activities you can perform: Regular-No Restrictions Follow up Referrals: Cardiology - [address] yeager PCP Follow-up - [address] chvaez Continued Medications: Acetaminophen (Tylenol Extra Strength) 500 Mg Tab 500 MG PO Q4-6H PRN PAIN Ref 0 TAB Albuterol 18 GM Inh (Ventolin Hfa 18 GM Inh) 90 Mcg/Act Aer 2 PUFF INH Q4-6H PRN SHORTNESS OF BREATH #1 Ref 0 INHALER Albuterol Neb (Albuterol Neb) 2.5 Mg/3 Ml Neb 2.5 MG NEB Q4HR NEB While awake Breathing Treatment #60 Ref [address] (Aspir-81) 81 Mg Tabdr 81 MG PO htn Atorvastatin (Atorvastatin) 20 Mg Tab 20 MG PO HS Cholesterol Management #30 Ref 0 TAB Clopidogrel (Plavix) 75 Mg Tab 75 MG PO DAILY pad #30 Ref 11 TAB Fluticasone-Vilanterol Inh (Breo Ellipta Inh) 100-25 Mcg/Act Inh 1 PUFF INH DAILY Use daily at the same time. #1 Ref 0 INHALER Ipratropium Neb (Ipratropium Neb) 0.5 Mg/2.5 Ml Amp 0.5 MG NEB Q6HR NEB Breathing Treatment Ref 0 NEBULE Lorazepam (Lorazepam) 1 Mg Tab 1 MG PO BID Ref 0 TAB Multiple Vitamin (Thera/Beta-Carotene) 1 Tab Tab 1 TAB PO DAILY etoh #30 Ref 0 TAB ([Oxygen]) 2 LITER INH DAILY Discontinued Medications: Lisinopril (Lisinopril) 20 Mg Tab 20 MG PO DAILY #30 Ref 0 TAB Triamterene-Hydrochlorothiazide (Maxzide-25) 37.5-25 Mg Tab 1 TAB PO DAILY #30 Ref 0 TAB Verapamil (Verapamil) 120 Mg Tab 120 MG PO BID #60 Ref 0 TAB Milan Bazzi MD Jul 16, 2016 20:56
== END 2016-06-22 14:48 | disposition home or self-care (01) | DRG 314 ==
LOC: NEPC 11:55 → NEDA 14:46 → N04A 17:25 → N04B 06-22 13:31 → N04A 06-22 13:31
PROVIDERS: ADMIT Hospitalist; ATTEND Hospitalist
PROC: 3E0F7GC Introduction of Other Therapeutic Substance into Respiratory Tract, Via Natural or Artificial Opening (ICD-10-PCS; principal; 2016-06-17)
DX: I95.9 Hypotension, unspecified (principal); A41.9 Sepsis, unspecified organism; T46.5X1A Poisoning by other antihypertensive drugs, accidental (unintentional), initial encounter; I47.2 Ventricular tachycardia; N17.9 Acute kidney failure, unspecified; Z99.81 Dependence on supplemental oxygen; I42.9 Cardiomyopathy, unspecified; K22.70 Barrett's esophagus without dysplasia; F10.239 Alcohol dependence with withdrawal, unspecified; Y92.9 Unspecified place or not applicable; J44.9 Chronic obstructive pulmonary disease, unspecified; E05.90 Thyrotoxicosis, unspecified without thyrotoxic crisis or storm; I10 Essential (primary) hypertension; I73.9 Peripheral vascular disease, unspecified; E78.5 Hyperlipidemia, unspecified; R35.0 Frequency of micturition; M19.90 Unspecified osteoarthritis, unspecified site; F41.9 Anxiety disorder, unspecified; E78.00 Pure hypercholesterolemia, unspecified; Z85.828 Personal history of other malignant neoplasm of skin; K21.9 Gastro-esophageal reflux disease without esophagitis; Z96.643 Presence of artificial hip joint, bilateral; F17.210 Nicotine dependence, cigarettes, uncomplicated; E86.0 Dehydration; Z86.010 Personal history of colon polyps
CPT/HCPCS: 71010; 78452; 80048; 80053; 80307; 81001; 83605; 83735; 83880; 84484; 85025; 85610; 85730; 87040; 87186; 87804; 93005; 93017; 93306; 94640; 94664; 99285; A9502; G0481; J0696; J2060; J2543; J2785; J3370; J3475; J3480; J7030; J7050

== ENCOUNTER 2016-06-27 20:50 | Inpatient (IN) | payer MEDICARE ==
[~2016-06-27] VITALS: Ht 172.7 cm; Wt 86.5 kg
[2016-06-27] VITALS (7 sets, daily range): BP systolic 84–152; BP diastolic 63–87; PULSE 52–126; RESP 16–20; TEMP 98.2–98.6; O2SAT 94–98
[~2016-06-27 20:50] MED LIST changes: -LISI-515 PO; +LISI10TA3 PO; -LORA-474 PO; -MAXZTAB PO; -PRED20 PO; -VERA120T3 PO
[2016-06-27] MEDS ORDERED: SODIUM CHLOR 0.9% 1000 ML INJ 700 ML IV ONE (21:06)
[2016-06-27] MEDS ORDERED: SODIUM CHLOR 0.9% 1000 ML INJ 1,000 ML IV ONE ×2 (21:06)
--- NOTE | 2016-06-27 21:19 | PD ---
HPI . Diarrhea Chief Complaint: GI Complaint Time Seen by Provider: 20:58 Travel History International Travel<30 days: No Contact w/Intl Traveler<30days: No Traveled to known affect area: No History of Present Illness HPI Patient presents with a one-week history of diarrhea. He states that he has 6- 7 episodes per day. No associated vomiting. No associated fever. No abdominal pain. He states that he feels weak but is not dizzy. He denies any urinary tract symptoms. He reports good urine output. Patient was hospitalized from June 17 for hypotension. He was treated with antibiotics empirically for sepsis. His cultures were negative. He had some V. tach while he was in the hospital. He had a subsequent echo that showed normal left ventricular function with an ejection fraction of 50-55%. QUALITY: Watery SEVERITY: 6-7 per day DURATION: One week TIMING: Continuous CONTEXT: Started status post empiric antibiotic treatment for possible sepsis ASSOCIATED SYMPTOMS: Low blood pressure PFSH Past Medical History Hx Anticoagulant Therapy: Yes Arthritis: Yes Asthma: No Autoimmune Disease: No Blood Disorders: No Anxiety: Yes Depression: No Heart Rhythm Problems: No Cancer: Yes (SKIN CANCER REMOVEL) Cardiovascular Problems: Yes High Cholesterol: Yes Chemotherapy: No Chest Pain: No Congestive Heart Failure: Yes COPD: Yes Cerebrovascular Accident: No Diabetes: No Diminished Hearing: No Endocrine: No Gastrointestinal Disorders: No GERD: Yes Glaucoma: No Genitourinary: No Headaches: No Hepatitis: No Hiatal Hernia: Yes Hypertension: Yes Immune Disorder: No Implanted Vascular Access Dvce: Yes Kidney Stones: No Musculoskeletal: Yes Neurologic: No Psychiatric: Yes Reproductive: No Respiratory: Yes Integumentary: No Immunizations Current: Yes Migraines: No Myocardial Infarction: No Radiation Therapy: No Renal Failure: No Seizures: No Sickle Cell Disease: No Sleep Apnea: No Thyroid Disease: Yes (HYPERTHYROID) Ulcer: No Past Surgical History Abdominal Surgery: Yes (Hernia repair w/ mesh.) AICD: No Appendectomy: No Arteriovenous Shunt: No Body Medical Devices: Stents LE's, BL hips Cardiac Surgery: Yes (Bilateral lower extremity vascular stents) Cholecystectomy: No Ear Surgery: No Endocrine Surgery: No Eye Surgery: No Genitourinary Surgery: No Gynecologic Surgery: No Insulin Pump: No Joint Replacement: Yes (BL hips) Neurologic Surgery: No Oral Surgery: No Pacemaker: No Thoracic Surgery: Yes Other Surgery: Yes (Nodule removed from vocal cords, stent left leg) Social History Alcohol Use: Yes (Approx. twice a week with dinner ) Tobacco Use: Yes (1 PPD) Substance Use: No Allergies-Medications (Allergen,Severity, Reaction): Coded Allergies: No Known Allergies (Verified , 06/27/16) Reported Meds & Prescriptions Reported Meds & Active Scripts Active Lisinopril 10 Mg Tab 10 Mg PO DAILY Thera/Beta-Carotene (Multiple Vitamin) 1 Tab Tab 1 Tab PO DAILY Plavix (Clopidogrel Bisulfate) 75 Mg Tab 75 Mg PO DAILY Reported [Oxygen] 2 Liter INH DAILY Tylenol Extra Strength (Acetaminophen) 500 Mg Tab 500 Mg PO Q4-6H PRN Ventolin Hfa 18 GM Inh (Albuterol Sulfate) 90 Mcg/Act Aer 2 Puff INH Q4-6H PRN Ipratropium Neb (Ipratropium [place]) 0.5 Mg/2.5 Ml Amp 0.5 Mg NEB Q6HR NEB Breo Ellipta Inh (Fluticasone/Vilanterol) 100-25 Mcg/Act Inh 1 Puff INH DAILY Use daily at the same time. Albuterol Neb (Albuterol Sulfate) 2.5 Mg/3 Ml Neb 2.5 Mg NEB Q4HR NEB While awake Lorazepam 1 Mg Tab 1 Mg PO BID Atorvastatin (Atorvastatin Calcium) 20 Mg Tab 20 Mg PO HS Aspir-81 (Aspirin) 81 Mg Tabdr 81 Mg PO Review of Systems Except as stated in HPI: all other systems reviewed are Neg General / Constitutional: No: Fever, Chills Cardiovascular: No: Chest Pain or Discomfort Respiratory: Positive: Shortness of Breath Gastrointestinal: Positive: Diarrhea, No: Nausea, Vomiting, Abdominal Pain Genitourinary: No: Urgency, Frequency, Dysuria, Decreased Urinary Output Neurologic: Positive: Weakness, No: Dizziness Physical Exam Narrative GENERAL: Healthy-appearing older man who is in no acute distress. SKIN: Warm and dry. HEAD: Atraumatic. Normocephalic. EYES: Pupils equal and round. ENT: No nasal bleeding or discharge. Mucous membranes pink and moist. NECK: Trachea midline. Neck is supple. CARDIOVASCULAR: Regular rate and rhythm. RESPIRATORY: No accessory muscle use. GASTROINTESTINAL: Abdomen soft, non-tender, nondistended. MUSCULOSKELETAL: No obvious deformities. No edema. NEUROLOGICAL: Awake and alert. No obvious cranial nerve deficits. Motor grossly within normal limits. Normal speech. PSYCHIATRIC: Appropriate mood and affect; insight and judgment normal. Data Data Last Documented VS Vital Signs Date Time Temp Pulse Resp B/P Pulse Ox O2 Delivery O2 Flow Rate FiO2 06/27/16 21:40 96 Room Air 06/27/16 21:08 18 06/27/16 21:06 98.5 115 125/66 90/66 Orders Complete Blood Count With Diff (06/27/16 21:06) Comprehensive Metabolic Panel (06/27/16 21:06) Lactic Acid Sepsis Protocol (06/27/16 21:06) Blood Culture (06/27/16 21:06) Iv Access Insert/Monitor (06/27/16 21:06) Oxygen Administration (06/27/16 21:06) Sodium Chlor 0.9% 1000 Ml Inj (Ns 1000 M (06/27/16 21:06) Sodium Chlor 0.9% 1000 Ml Inj (Ns 1000 M (06/27/16 21:06) Sodium Chlor 0.9% 1000 Ml Inj (Ns 1000 M (06/27/16 21:06) Abdomen, Upright Only (06/27/16 21:06) C Diff Toxin Pcr (06/27/16 21:06) Enteric Path (Stool) (06/27/16 21:06) Metronidazole (Flagyl) (06/27/16 22:15) Admit Order (Ed Use Only) (06/27/16 22:16) Labs Laboratory Tests Test 06/27/16 06/27/16 21:20 21:28 White Blood Count 18.8 TH/MM3 Red Blood Count 3.70 MIL/MM3 Hemoglobin 11.6 GM/DL Hematocrit 34.5 % Mean Corpuscular Volume 93.1 FL Mean Corpuscular Hemoglobin 31.4 PG Mean Corpuscular Hemoglobin 33.7 % Concent Red Cell Distribution Width 14.8 % Platelet Count 483 TH/MM3 Mean Platelet Volume 7.4 FL Neutrophils (%) (Auto) 79.9 % Lymphocytes (%) (Auto) 9.9 % Monocytes (%) (Auto) 7.2 % Eosinophils (%) (Auto) 2.0 % Basophils (%) (Auto) 1.0 % Neutrophils # (Auto) 14.9 TH/MM3 Lymphocytes # (Auto) 1.9 TH/MM3 Monocytes # (Auto) 1.3 TH/MM3 Eosinophils # (Auto) 0.4 TH/MM3 Basophils # (Auto) 0.2 TH/MM3 CBC Comment DIFF FINAL Differential Comment Sodium Level 145 MEQ/L Potassium Level 3.3 MEQ/L Chloride Level 113 MEQ/L Carbon Dioxide Level 17.7 MEQ/L Anion Gap 14 MEQ/L Blood Urea Nitrogen 14 MG/DL Creatinine 1.10 MG/DL Estimat Glomerular Filtration 66 ML/MIN Rate Random Glucose 92 MG/DL Calcium Level 8.4 MG/DL Total Bilirubin 0.3 MG/DL Aspartate Amino Transf 9 U/L (AST/SGOT) Alanine Aminotransferase 21 U/L (ALT/SGPT) Alkaline Phosphatase 70 U/L Total Protein 6.7 GM/DL Albumin 2.9 GM/DL Lactic Acid Level 2.9 mmol/L MDM Medical Decision Making Medical Screen Exam Complete: Yes Emergency Medical Condition: Yes Medical Record Reviewed: Yes (patient had a recent hospitalization for low blood pressure. Prior to that, he was hospitalized in April for COPD and alcohol withdrawal.) Differential Diagnosis Differential diagnosis of diarrhea includes but is not limited to early enteritis, bacterial enteritis, antibiotic induced diarrhea, irritable bowel syndrome Narrative Course Patient presents with diarrhea and low blood pressure. Clinically, he looks well. I have ordered fluid resuscitation, stool studies, routine labs and plain films of his abdomen to look for fecal impaction. He could be having loose stools around fecal impaction. He could also have C. difficile following his recent antibiotics. CBC & BMP Diagram 06/27/16 21:20 His lactic acid is 2.9. His heart rate is down to about 100 and his systolic blood pressure is up to 90. He has had about 1.5 L of fluid. Critical Care Narrative Aggregate critical care time was 60 minutes. Time to perform other separately billable procedures was not included in the critical care time. My time did not include minutes spent treating any other patients simultaneously or on activities that did not directly contribute to the patient's treatment. The services I provided to this patient were to treat and/or prevent clinically significant deterioration due to septic shock I provided critical care services requiring my management, as noted below: Chart data review, documentation time, medication orders and management, vital sign assessments/reviewing monitor data, ordering and reviewing lab tests, ordering and interpreting/reviewing x-rays and diagnostic studies, care of the patient and discussion of the patient with the admitting physicians Sepsis Criteria SIRS Criteria (2 or more): Heart rate over 90, WBC > 40101, < 4000 or > 10% bands Sepsis Criteria (SIRS+source): Infect source susp/known Criteria Outcome: Meets SIRS criteria, Meets sepsis criteria Physician Communication Physician Communication Dr. Amaro asked that I admit the patient to Dr. Rodgers. Diagnosis Primary Impression: Sepsis Qualified Code: A41.9 - Sepsis, due to unspecified organism Additional Impression: Diarrhea Qualified Code: R19.7 - Diarrhea, unspecified type Admitting Information Admitting Physician Requests: Admit Condition: Jennifer Barnett MD Jun 27, 2016 21:19
--- NOTE | 2016-06-27 21:34 | RADHPO ---
EXAM DATE/TIME: 06/27/2016 21:17 [facility] COMPARISON: No previous studies available for comparison. INDICATIONS : Diarrhea and abdominal pain for one week. MEDICAL HISTORY : None. SURGICAL HISTORY : None. ENCOUNTER: Initial ACUITY: 1 week PAIN SCORE: 5/10 LOCATION: Bilateral abdomen. FINDINGS: A single erect view of the abdomen demonstrates the lower lungs to be clear. No evidence of free int raperitoneal gas. The visualized bowel loops are unremarkable. CONCLUSION: No acute findings. Emanuel Mello MD on June 27, 2016 at 21:32 Board Certified Radiologist. This report was verified electronically.
[2016-06-27 21:49] LABS: AUTOMATED NEUTROPHIL # 14.9 TH/MM3 (1.8-7.7); BASOPHIL # 0.2 TH/MM3 (0-0.2); EOSINOPHIL # 0.4 TH/MM3 (0-0.4); HEMATOCRIT 34.5 % (39.0-51.0); LYMPH % 9.9 % (9.0-44.0); LYMPHOCYTE # 1.9 TH/MM3 (1.0-4.8); MEAN CELL VOLUME 93.1 FL (80.0-100.0); MEAN CORPUSCULAR HEMOGLOBIN 31.4 PG (27.0-34.0); MEAN CORPUSCULAR HGB CONC 33.7 % (32.0-36.0); MONO % 7.2 % (0.0-8.0); NEUT % 79.9 % (16.0-70.0); PLATELET COUNT 483 TH/MM3 (150-450); RED CELL DISTRIBUTION WIDTH 14.8 % (11.6-17.2); WHITE BLOOD COUNT 18.8 TH/MM3 (4.0-11.0)
[2016-06-27 21:53] LABS: HEMO FLAGS DIFF FINAL
[2016-06-27 21:54] LABS: CHLORIDE 113 MEQ/L (98-107); POTASSIUM 3.3 MEQ/L (3.5-5.1); SODIUM (NA) 145 MEQ/L (136-145)
[2016-06-27 21:57] LABS: ANION GAP 14 MEQ/L (5-15); BICARBONATE 17.7 MEQ/L (21.0-32.0)
[2016-06-27 21:58] LABS: BLOOD UREA NITROGEN 14 MG/DL (7-18)
[2016-06-27 22:00] LABS: ALT (GPT) 21 U/L (12-78)
[2016-06-27 22:01] LABS: AST (GOT) 9 U/L (15-37); GLOMERULAR FILTRATION RATE 66 ML/MIN (>89)
[2016-06-27 22:02] LABS: TOTAL BILIRUBIN ADULT 0.3 MG/DL (0.2-1.0)
[2016-06-27 22:03] LABS: ALKALINE PHOSPHATASE 70 U/L (45-117)
[2016-06-27] MEDS ORDERED: metroNIDAZOLE 500 MG TAB PO ONE (22:15)
[2016-06-27] MEDS: NS + KCL 20 MEQ INJ 1,000 ML IV SCH (22:45)
[2016-06-27] MEDS ORDERED: LORazepam 2 MG/ML VIAL IV PUSH PRN (22:45)
[2016-06-27 23:31] LABS: LACTIC ACID GHOST NOT REPORTABLE
[2016-06-28] VITALS (18 sets, daily range): BP systolic 128–166; BP diastolic 68–98; PULSE 94–116; RESP 16–24; TEMP 97.6–98.5; O2SAT 95–99
[2016-06-28] MEDS ORDERED: CHLORHEXIDINE GLUCONATE 2 % 1 PACK (2 CLOTHS)(extra cloths) TOP PRN (01:30)
[2016-06-28] MEDS: CHLORHEXIDINE GLUCONATE 2 % 1 PACK (2 CLOTHS)(taper/protocol) TOP SCH (03:29)
[2016-06-28 06:31] LABS: AUTOMATED NEUTROPHIL # 14.1 TH/MM3 (1.8-7.7); BASOPHIL % 0.1 % (0.0-2.0); EOSINOPHIL # 0.4 TH/MM3 (0-0.4); EOSINOPHIL % 2.2 % (0.0-4.0); HEMATOCRIT 33.3 % (39.0-51.0); LYMPH % 9.3 % (9.0-44.0); LYMPHOCYTE # 1.6 TH/MM3 (1.0-4.8); MEAN CELL VOLUME 92.5 FL (80.0-100.0); MEAN CORPUSCULAR HEMOGLOBIN 31.1 PG (27.0-34.0); MEAN CORPUSCULAR HGB CONC 33.7 % (32.0-36.0); MONO % 7.3 % (0.0-8.0); NEUT % 81.1 % (16.0-70.0); PLATELET COUNT 498 TH/MM3 (150-450); RED CELL DISTRIBUTION WIDTH 14.7 % (11.6-17.2); WHITE BLOOD COUNT 17.4 TH/MM3 (4.0-11.0)
[2016-06-28] MEDS: metroNIDAZOLE 500 MG INJ 100 ML IV SCH ×3 (06:35→23:30)
[2016-06-28 06:47] LABS: CHLORIDE 117 MEQ/L (98-107); HEMO FLAGS AUTO DIFF; POTASSIUM 3.7 MEQ/L (3.5-5.1); SODIUM (NA) 145 MEQ/L (136-145)
[2016-06-28 06:50] LABS: ANION GAP 9 MEQ/L (5-15); BICARBONATE 19.1 MEQ/L (21.0-32.0); BLOOD UREA NITROGEN 11 MG/DL (7-18); MAGNESIUM 1.6 MG/DL (1.5-2.5)
[2016-06-28 06:53] LABS: ALT (GPT) 16 U/L (12-78); AST (GOT) 6 U/L (15-37); GLOMERULAR FILTRATION RATE 103 ML/MIN (>89)
[2016-06-28 06:54] LABS: TOTAL BILIRUBIN ADULT 0.3 MG/DL (0.2-1.0)
[2016-06-28 06:56] LABS: ALKALINE PHOSPHATASE 66 U/L (45-117)
[2016-06-28 07:10] LABS: SCAN/DIFF AUTO DIFF CONFIRMED
--- NOTE | 2016-06-28 08:04 | HHI.HP ---
HPI Service [facility] Primary Care Physician Ryley Rodgers MD Admission Diagnosis hypotension, diarrhea Chief Complaint: Diarrhea, weakness Travel History International Travel<30 Days: No Contact w/Intl Traveler <30 Da: No Traveled to Known Affected Are: No Sepsis Criteria SIRS Criteria (2 or more): Heart rate over 90, WBC > 70333, < 4000 or > 10% bands Sepsis Criteria (SIRS+source): Infect source susp/known Severe Sepsis (+one): Hypotension, Lactate >2 Criteria Outcome: Meets severe sepsis criteria History of Present Illness 71-year-old male with history of COPD, hyperthyroidism and alcohol dependence presents with a one-week history of diarrhea. He states that he has 6-7 episodes per day. No associated vomiting. No associated fever. No abdominal pain except for occasional cramping. He states that he feels weak but is not dizzy. He denies any urinary tract symptoms. He reports good urine output. No robi hematochezia but has noted occasional spot of blood on the tissue after multiple episodes of diarrhea. It is noted that patient was hospitalized from June 17- for hypotension as outpatient systolic pressures in the 60s which was presumed to be associated with sepsis/SIRS. He was treated with broad -spectrum antibiotics empirically for sepsis. His cultures were negative. He had some V. tach on June 20 while he was in the hospital. This did not recur. He had a subsequent Lexiscan that was negative for ischemia and echo that showed normal left ventricular function with an ejection fraction of 50-55%. It is noted that he was discharged home on levofloxacin and that he started having diarrhea after his second dose of levofloxacin per his report. He has been treated here with metronidazole and IV fluids. He is still having diarrhea overnight but the volume of the bowel movements is less. There's been no blood in the diarrhea here. He was initially somewhat hypotensive on the current admission with systolic pressures in the 80s and elevated heart rate is well. He has responded well to IV fluids and his blood pressures now systolically in the 150s with heart rate in the 90s. Review of Systems Constitutional: COMPLAINS OF: Fatigue, Dizziness, DENIES: Diaphoretic episodes , Fever, Weight gain, Weight loss, Chills, Change in appetite, Night Sweats Endocrine: DENIES: Heat/cold intolerance, Polydipsia, Polyuria, Polyphagia Eyes: DENIES: Blurred vision, Diplopia, Eye inflammation, Eye pain, Vision loss , Photosensitivity, Double Vision Ears, nose, mouth, throat: DENIES: Tinnitus, Hearing loss, Vertigo, Nasal discharge, Oral lesions, Throat pain, Hoarseness, Ear Pain, Running Nose, Epistaxis, Sinus Pain, Toothache, Odynophagia Respiratory: COMPLAINS OF: Cough, Wheezing, Shortness of breath, DENIES: Apneas, Snoring, Hemoptysis, Sputum production Cardiovascular: DENIES: Chest pain, Palpitations, Syncope, Dyspnea on Exertion , PND, Lower Extremity Edema, Orthopnea, Claudication Gastrointestinal: COMPLAINS OF: Diarrhea, DENIES: Abdominal pain, Black stools , Bloody stools, BRB per rectum, Constipation, GERD, Nausea, Reflux, Vomiting, Difficulty Swallowing, Anorexia, See HPI Musculoskeletal: COMPLAINS OF: Joint pain Hematologic/lymphatic: COMPLAINS OF: Bruising Neurologic: DENIES: Abnormal gait, Headache, Localized weakness, Paresthesias, Seizures, Speech Problems, Tremor, Poor Balance Psychiatric: COMPLAINS OF: Anxiety Past Family Social History Past Medical History Alcohol dependence with history of withdrawal Anxiety Peripheral arterial disease COPD with chronic respiratory failure requiring supplemental oxygen at home Reaves's esophagus GERD Hypertension Hyperlipidemia Hyperthyroidism Past Surgical History Bilateral total hip replacement Angioplasty with atherectomy bilateral SFA Balloon angioplasty of left SFA March 2016 Stenting left common iliac artery and right common iliac artery March 2016 Colonoscopy and EGD in 2006 Reported Medications Lisinopril 10 Mg Tab 10 Mg PO DAILY Thera/Beta-Carotene (Multiple Vitamin) 1 Tab Tab 1 Tab PO DAILY Plavix (Clopidogrel Bisulfate) 75 Mg Tab 75 Mg PO DAILY [Oxygen] 2 Liter INH DAILY Tylenol Extra Strength (Acetaminophen) 500 Mg Tab 500 Mg PO Q4-6H PRN Ventolin Hfa 18 GM Inh (Albuterol Sulfate) 90 Mcg/Act Aer 2 Puff INH Q4-6H PRN Ipratropium Neb (Ipratropium [place]) 0.5 Mg/2.5 Ml Amp 0.5 Mg NEB Q6HR NEB Breo Ellipta Inh (Fluticasone/Vilanterol) 100-25 Mcg/Act Inh 1 Puff INH DAILY Use daily at the same time. Albuterol Neb (Albuterol Sulfate) 2.5 Mg/3 Ml Neb 2.5 Mg NEB Q4HR NEB While awake Lorazepam 1 Mg Tab 1 Mg PO BID Atorvastatin (Atorvastatin Calcium) 20 Mg Tab 20 Mg PO HS Aspir-81 (Aspirin) 81 Mg Tabdr 81 Mg PO Levofloxacin 500 mg per day started during recent hospitalization Allergies: Coded Allergies: No Known Allergies (Verified , 06/27/16) Family History Noncontributory Social History Lives with his Smokes one pack of cigarettes per day which he is done for 50 years Drinks 2 mixed drinks per week with dinner which is a significant decrease from previous alcohol ingestion volume Retired from [employer] after 40 years Physical Exam Vital Signs Vital Signs Date Time Temp Pulse Resp B/P Pulse Ox O2 Delivery O2 Flow Rate FiO2 06/28/16 04:06 98.2 104 21 140/86 95 06/28/16 04:00 100 06/28/16 03:01 104 24 147/77 06/28/16 01:01 112 21 128/68 06/28/16 01:00 113 06/28/16 00:50 98.4 116 19 140/82 95 06/27/16 23:50 18 06/27/16 23:48 110 18 141/82 97 Room Air 06/27/16 23:23 98.2 107 18 152/87 96 Room Air 06/27/16 21:40 96 Room Air 06/27/16 21:30 104 18 138/76 98 Room Air 06/27/16 21:08 18 06/27/16 21:06 98.5 115 18 125/66 96 Room Air 90/66 06/27/16 21:00 80 16 90/63 98 Room Air 06/27/16 20:53 98.6 126 20 84/63 94 Physical Exam GENERAL: This is a well-nourished, well-developed patient, in no apparent distress. No tremor. Remembers me from previous exam. SKIN: No rashes, few areas of purpura on forearms. Cool and dry. HEAD: Atraumatic. Normocephalic. No temporal or scalp tenderness. EYES: Pupils equal round and reactive. Extraocular motions intact. No scleral icterus. No injection or drainage. ENT: Nose without bleeding, purulent drainage or septal hematoma. Airway patent. NECK: Trachea midline. No JVD or lymphadenopathy. Supple, nontender, no meningeal signs. CARDIOVASCULAR: Regular rate and rhythm without murmurs, gallops, or rubs. Heart rate in the 90s. RESPIRATORY: Clear to auscultation. Breath sounds equal bilaterally. Occasional expiratory wheeze but no fine crackles. Fair air movement throughout. GASTROINTESTINAL: Abdomen soft, non-tender, nondistended. No hepato-splenomegaly , or palpable masses. No guarding. Bowel sounds slightly hyperactive. MUSCULOSKELETAL: Extremities without clubbing, cyanosis, or edema. No joint tenderness, effusion, or edema noted. No calf tenderness. NEUROLOGICAL: Awake and alert. Cranial nerves II through XII intact. Motor and sensory grossly within normal limits. Five out of 5 muscle strength in all muscle groups. Normal speech. Laboratory Laboratory Tests Test 06/27/16 06/27/16 06/28/16 06/28/16 21:20 21:28 01:10 06:09 White Blood Count 18.8 17.4 Red Blood Count 3.70 3.60 Hemoglobin 11.6 11.2 Hematocrit 34.5 33.3 Mean Corpuscular Volume 93.1 92.5 Mean Corpuscular Hemoglobin 31.4 31.1 Mean Corpuscular Hemoglobin 33.7 33.7 Concent Red Cell Distribution Width 14.8 14.7 Platelet Count 483 498 Mean Platelet Volume 7.4 7.3 Neutrophils (%) (Auto) 79.9 81.1 Lymphocytes (%) (Auto) 9.9 9.3 Monocytes (%) (Auto) 7.2 7.3 Eosinophils (%) (Auto) 2.0 2.2 Basophils (%) (Auto) 1.0 0.1 Neutrophils # (Auto) 14.9 14.1 Lymphocytes # (Auto) 1.9 1.6 Monocytes # (Auto) 1.3 1.3 Eosinophils # (Auto) 0.4 0.4 Basophils # (Auto) 0.2 0.0 CBC Comment DIFF FINAL AUTO DIFF Differential Comment AUTO DIFF CONFIRMED Sodium Level 145 145 Potassium Level 3.3 3.7 Chloride Level 113 117 Carbon Dioxide Level 17.7 19.1 Anion Gap 14 9 Blood Urea Nitrogen 14 11 Creatinine 1.10 0.75 Estimat Glomerular Filtration 66 103 Rate Random Glucose 92 99 Calcium Level 8.4 7.7 Total Bilirubin 0.3 0.3 Aspartate Amino Transf 9 6 (AST/SGOT) Alanine Aminotransferase 21 16 (ALT/SGPT) Alkaline Phosphatase 70 66 Total Protein 6.7 5.9 Albumin 2.9 2.5 Ethyl Alcohol Level 85 Lactic Acid Level 2.9 Nasal Screen MRSA (PCR) NEGATIVE Magnesium Level 1.6 Date/Time Procedure Status Source Growth 06/28/16 03:40 Received Stool Stool Pending 06/27/16 21:28 Aerobic Blood Culture Received Blood Peripheral Pending 06/27/16 21:28 Anaerobic Blood Culture Received Blood Peripheral Pending Result Diagram: 06/28/16 0609 06/28/16 0609 Imaging Last 72 hours Impressions Abdomen X-Ray 06/27/162105 Signed Impressions: Service Date/Time: Monday, June 27, 2016 21:17 - CONCLUSION: No acute findings. Emanuel Mello MD Septic Shock Reassessment Heart: Regular rate and rhythm Lungs: Clear Skin: Warm Peripheral Pulses: Weak Right Posterior Tibial Weak Left Posterior Tibial Bounding Right Radial Bounding Left Radial Capillary Refill: Brisk Assessment and Plan Problem List: (1) Sepsis Status: Acute Plan: Possibly associated with bacterial overgrowth recent antibiotic use and subsequent diarrhea. C. difficile studies pending. Blood cell count and vital signs improving. Continue current therapy. (2) Diarrhea Status: Acute Plan: As noted above. C. difficile pending. (3) Dehydration Status: Acute Plan: Likely associated with GI volume loss. Has responded well to IV fluids. (4) COPD (chronic obstructive pulmonary disease) Status: Chronic Plan: Continue supplemental oxygen/nebulizers/inhalers. Stable. (5) PAD (peripheral artery disease) Status: Chronic Plan: Continue home medication. Encouraged him to stop smoking. (6) Hypertension Status: Chronic Plan: The pressure was quite low on arrival. We will resume medications as appropriate. (7) Hyperlipemia Status: Chronic Plan: Continue medication Code Status Full Discussed Condition With Patient and ER physician. Physician Certification 2 Midnight Certification Type: Admission for Inpatient Services Order for Inpatient Services The services are ordered in accordance with Medicare regulations or non- Medicare payer requirements, as applicable. In the case of services not specified as inpatient-only, they are appropriately provided as inpatient services in accordance with the 2-midnight benchmark. Estimated LOS (days): 3 days is the estimated time the patient will need to remain in the hospital, assuming treatment plan goals are met and no additional complications. Post-Hospital Plan: Not yet determined Problem Qualifiers (1) Sepsis: Qualified Code: A41.9 - Sepsis, due to unspecified organism (2) Diarrhea: Qualified Code: R19.7 - Diarrhea, unspecified type Jac Amaro MD PhD Jun 28, 2016 08:04
[2016-06-28] MEDS: RESP: ALBUTEROL 2.5 MG/IPRATROPIUM 0.5 MG NEB (PRN) NEB ×4 (08:12→20:26)
[2016-06-28] MEDS ORDERED: POTASSIUM CHLORIDE 10 MEQ CONTROLLED RELEASE TAB PO ONE (08:15)
[2016-06-28] MEDS ORDERED: MAGNESIUM OXIDE 400 MG TAB PO ONE (08:15)
[2016-06-28] MEDS: MULTIVITAMIN TAB PO SCH (09:22)
[2016-06-28] MEDS: CLOPIDOGREL 75 MG TAB PO SCH (09:22)
[2016-06-28] MEDS: ASPIRIN EC 81 MG TABEC PO SCH (09:22)
[2016-06-28] MEDS: LISINOPRIL 10 MG TAB PO SCH (09:22)
[2016-06-28] MEDS: NS + KCL 20 MEQ INJ 1,000 ML IV SCH (09:23)
[2016-06-28] MEDS: FLUTICASONE 100 MCG/VILANTEROL 25 MCG INHALER INH SCH (11:44)
[2016-06-28 21:34] LABS: C. DIFF EPI 027 PRESUMPTIVE POSITIVE (NEGATIVE)
[2016-06-28 21:38] LABS: C. DIFF TOXIN PCR POSITIVE (NEGATIVE)
[2016-06-28] MEDS: ATORVASTATIN 20 MG TAB PO SCH (23:33)
[2016-06-28] MEDS: LORazepam 1 MG TAB PO SCH (23:33)
[2016-06-29] VITALS (10 sets, daily range): BP systolic 133–169; BP diastolic 83–97; PULSE 72–104; RESP 18–20; TEMP 96.8–99.2; O2SAT 97–100
[2016-06-29] MEDS: CHLORHEXIDINE GLUCONATE 2 % 1 PACK (2 CLOTHS)(taper/protocol) TOP SCH (03:54)
[2016-06-29] MEDS: metroNIDAZOLE 500 MG INJ 100 ML IV SCH ×3 (05:00→20:34)
[2016-06-29 06:01] LABS: AUTOMATED NEUTROPHIL # 10.2 TH/MM3 (1.8-7.7); BASOPHIL # 0.1 TH/MM3 (0-0.2); BASOPHIL % 0.5 % (0.0-2.0); EOSINOPHIL # 0.4 TH/MM3 (0-0.4); EOSINOPHIL % 3.4 % (0.0-4.0); HEMATOCRIT 33.7 % (39.0-51.0); HEMO FLAGS DIFF FINAL; LYMPH % 11.3 % (9.0-44.0); LYMPHOCYTE # 1.5 TH/MM3 (1.0-4.8); MEAN CELL VOLUME 93.1 FL (80.0-100.0); MEAN CORPUSCULAR HEMOGLOBIN 30.7 PG (27.0-34.0); MEAN CORPUSCULAR HGB CONC 32.9 % (32.0-36.0); MONO % 6.4 % (0.0-8.0); NEUT % 78.4 % (16.0-70.0); PLATELET COUNT 465 TH/MM3 (150-450); RED BLOOD COUNT 3.62 MIL/MM3 (4.50-5.90); RED CELL DISTRIBUTION WIDTH 14.8 % (11.6-17.2)
[2016-06-29 06:14] LABS: CHLORIDE 114 MEQ/L (98-107); POTASSIUM 3.9 MEQ/L (3.5-5.1); SODIUM (NA) 144 MEQ/L (136-145)
[2016-06-29 06:21] LABS: ANION GAP 8 MEQ/L (5-15); BICARBONATE 21.7 MEQ/L (21.0-32.0); BLOOD UREA NITROGEN 6 MG/DL (7-18)
[2016-06-29 06:24] LABS: ALT (GPT) 16 U/L (12-78); AST (GOT) 6 U/L (15-37); GLOMERULAR FILTRATION RATE 117 ML/MIN (>89)
[2016-06-29 06:26] LABS: TOTAL BILIRUBIN ADULT 0.5 MG/DL (0.2-1.0)
[2016-06-29 06:27] LABS: ALKALINE PHOSPHATASE 64 U/L (45-117)
--- NOTE | 2016-06-29 07:07 | HHI.PR ---
Subjective Remarks Still having frequent diarrhea. No nausea or vomiting. No other complaints. Objective Vitals Vital Signs Date Time Temp Pulse Resp B/P Pulse Ox O2 Delivery O2 Flow Rate FiO2 06/29/16 04:00 96.8 90 18 168/96 97 06/29/16 02:48 Nasal Cannula 2.00 06/29/16 00:00 97.1 72 18 169/97 98 06/28/16 20:27 97 21 06/28/16 20:00 97.8 99 20 148/96 99 06/28/16 19:49 109 06/28/16 17:00 97.6 98 20 166/98 98 06/28/16 16:38 98.3 98 16 148/79 97 06/28/16 16:08 98 21 06/28/16 15:00 96 06/28/16 11:00 100 23 159/91 95 06/28/16 10:00 94 18 160/86 06/28/16 09:00 98.5 102 19 145/74 96 06/28/16 08:00 98 16 152/92 06/28/16 07:10 100 06/28/16 06/28/16 06/29/16 15:00 23:00 07:00 Intake Total 1405 ml 313 ml Output Total 550 ml Balance 855 ml 313 ml Intake Oral 650 ml 120 ml IV Total 755 ml 193 ml Output Urine Total 550 ml # Voids 3 # Bowel Movements 3 Result Diagram: 06/29/16 0528 06/29/16 0528 Other Results Stool positive for C. difficile Laboratory Tests Test 06/27/16 06/27/16 06/28/16 06/28/16 21:20 21:28 01:10 03:40 White Blood Count 18.8 TH/MM3 Red Blood Count 3.70 MIL/MM3 Hemoglobin 11.6 GM/DL Hematocrit 34.5 % Mean Corpuscular Volume 93.1 FL Mean Corpuscular Hemoglobin 31.4 PG Mean Corpuscular Hemoglobin 33.7 % Concent Red Cell Distribution Width 14.8 % Platelet Count 483 TH/MM3 Mean Platelet Volume 7.4 FL Neutrophils (%) (Auto) 79.9 % Lymphocytes (%) (Auto) 9.9 % Monocytes (%) (Auto) 7.2 % Eosinophils (%) (Auto) 2.0 % Basophils (%) (Auto) 1.0 % Neutrophils # (Auto) 14.9 TH/MM3 Lymphocytes # (Auto) 1.9 TH/MM3 Monocytes # (Auto) 1.3 TH/MM3 Eosinophils # (Auto) 0.4 TH/MM3 Basophils # (Auto) 0.2 TH/MM3 CBC Comment DIFF FINAL Differential Comment Sodium Level 145 MEQ/L Potassium Level 3.3 MEQ/L Chloride Level 113 MEQ/L Carbon Dioxide Level 17.7 MEQ/L Anion Gap 14 MEQ/L Blood Urea Nitrogen 14 MG/DL Creatinine 1.10 MG/DL Estimat Glomerular Filtration 66 ML/MIN Rate Random Glucose 92 MG/DL Calcium Level 8.4 MG/DL Total Bilirubin 0.3 MG/DL Aspartate Amino Transf 9 U/L (AST/SGOT) Alanine Aminotransferase 21 U/L (ALT/SGPT) Alkaline Phosphatase 70 U/L Total Protein 6.7 GM/DL Albumin 2.9 GM/DL Ethyl Alcohol Level 85 MG/DL Lactic Acid Level 2.9 mmol/L Nasal Screen MRSA (PCR) NEGATIVE Stool C. difficile Toxin (PCR) POSITIVE Stl C. difficile Toxin PRESUMPTIVE Epiderm 027 POSITIVE Test 06/28/16 06/28/16 06/29/16 06:09 09:22 05:28 White Blood Count 17.4 TH/MM3 13.0 TH/MM3 Red Blood Count 3.60 MIL/MM3 3.62 MIL/MM3 Hemoglobin 11.2 GM/DL 11.1 GM/DL Hematocrit 33.3 % 33.7 % Mean Corpuscular Volume 92.5 FL 93.1 FL Mean Corpuscular Hemoglobin 31.1 PG 30.7 PG Mean Corpuscular Hemoglobin 33.7 % 32.9 % Concent Red Cell Distribution Width 14.7 % 14.8 % Platelet Count 498 TH/MM3 465 TH/MM3 Mean Platelet Volume 7.3 FL 7.4 FL Neutrophils (%) (Auto) 81.1 % 78.4 % Lymphocytes (%) (Auto) 9.3 % 11.3 % Monocytes (%) (Auto) 7.3 % 6.4 % Eosinophils (%) (Auto) 2.2 % 3.4 % Basophils (%) (Auto) 0.1 % 0.5 % Neutrophils # (Auto) 14.1 TH/MM3 10.2 TH/MM3 Lymphocytes # (Auto) 1.6 TH/MM3 1.5 TH/MM3 Monocytes # (Auto) 1.3 TH/MM3 0.8 TH/MM3 Eosinophils # (Auto) 0.4 TH/MM3 0.4 TH/MM3 Basophils # (Auto) 0.0 TH/MM3 0.1 TH/MM3 CBC Comment AUTO DIFF DIFF FINAL Differential Comment AUTO DIFF CONFIRMED Sodium Level 145 MEQ/L 144 MEQ/L Potassium Level 3.7 MEQ/L 3.9 MEQ/L Chloride Level 117 MEQ/L 114 MEQ/L Carbon Dioxide Level 19.1 MEQ/L 21.7 MEQ/L Anion Gap 9 MEQ/L 8 MEQ/L Blood Urea Nitrogen 11 MG/DL 6 MG/DL Creatinine 0.75 MG/DL 0.67 MG/DL Estimat Glomerular Filtration 103 ML/MIN 117 ML/MIN Rate Random Glucose 99 MG/DL 107 MG/DL Calcium Level 7.7 MG/DL 8.3 MG/DL Magnesium Level 1.6 MG/DL Total Bilirubin 0.3 MG/DL 0.5 MG/DL Aspartate Amino Transf 6 U/L 6 U/L (AST/SGOT) Alanine Aminotransferase 16 U/L 16 U/L (ALT/SGPT) Alkaline Phosphatase 66 U/L 64 U/L C-Reactive Protein 6.30 MG/DL Total Protein 5.9 GM/DL 5.9 GM/DL Albumin 2.5 GM/DL 2.5 GM/DL Lactic Acid Level 0.9 mmol/L Imaging Last 72 hours Impressions Abdomen X-Ray 06/27/162105 Signed Impressions: Service Date/Time: Monday, June 27, 2016 21:17 - CONCLUSION: No acute findings. Emanuel Mello MD Objective Remarks Exam: Generarl: WDWN white male in no distress. HEENT: Pupils equal, no scleral icterus Neck: No JVD Heart: RRR with no murmur Lungs: Clear Abdomen: Soft, nontender, no masses Extremities: No edema Neuro: Alert, oriented, no focal deficits A/P Assessment and Plan Assessment: --C. difficile colitis --Diarrhea secondary to C. difficile --Sepsis--WBC improving --Dehydration--clinically resolved --Hypertension --COPD --Hyperlipidemia --Peripheral artery disease Plan: Continue IV Flagyl. Increase Lisinopril to 10mg twice a day. Consult infectious disease. Monitor CBC and BMP. Ephraim Chapman MD Jun 29, 2016 07:07
[2016-06-29] MEDS: RESP: ALBUTEROL 2.5 MG/IPRATROPIUM 0.5 MG NEB (PRN) NEB ×2 (07:54→17:07)
[2016-06-29] MEDS: LISINOPRIL 10 MG TAB PO SCH ×4 (09:00→20:34)
[2016-06-29] MEDS: ASPIRIN EC 81 MG TABEC PO SCH (09:19)
[2016-06-29] MEDS: MULTIVITAMIN TAB PO SCH (09:19)
[2016-06-29] MEDS: CLOPIDOGREL 75 MG TAB PO SCH (09:19)
[2016-06-29] MEDS: FLUTICASONE 100 MCG/VILANTEROL 25 MCG INHALER INH SCH (11:06)
[2016-06-29] MEDS: ATORVASTATIN 20 MG TAB PO SCH (20:34)
[2016-06-29] MEDS: LORazepam 1 MG TAB PO SCH (20:34)
[2016-06-30] VITALS (9 sets, daily range): BP systolic 141–164; BP diastolic 82–100; PULSE 67–97; RESP 16–18; TEMP 96.6–98.9; O2SAT 96–100
[2016-06-30] MEDS: CHLORHEXIDINE GLUCONATE 2 % 1 PACK (2 CLOTHS)(taper/protocol) TOP SCH (00:53)
[2016-06-30] MEDS: metroNIDAZOLE 500 MG INJ 100 ML IV SCH ×3 (06:03→22:05)
[2016-06-30 06:15] LABS: AUTOMATED NEUTROPHIL # 5.5 TH/MM3 (1.8-7.7); BASOPHIL % 0.5 % (0.0-2.0); EOSINOPHIL # 0.3 TH/MM3 (0-0.4); EOSINOPHIL % 3.6 % (0.0-4.0); HEMATOCRIT 33.2 % (39.0-51.0); HEMO FLAGS DIFF FINAL; LYMPH % 18.6 % (9.0-44.0); LYMPHOCYTE # 1.5 TH/MM3 (1.0-4.8); MEAN CELL VOLUME 92.7 FL (80.0-100.0); MEAN CORPUSCULAR HEMOGLOBIN 30.5 PG (27.0-34.0); MEAN CORPUSCULAR HGB CONC 32.9 % (32.0-36.0); MONO % 8.2 % (0.0-8.0); NEUT % 69.1 % (16.0-70.0); PLATELET COUNT 421 TH/MM3 (150-450); RED BLOOD COUNT 3.58 MIL/MM3 (4.50-5.90); RED CELL DISTRIBUTION WIDTH 14.8 % (11.6-17.2)
[2016-06-30 06:18] LABS: POTASSIUM 3.4 MEQ/L (3.5-5.1)
--- NOTE | 2016-06-30 06:54 | HHI.PR ---
Subjective Remarks His diarrhea is improving. He only got up twice during the night. No rectal bleeding. No abdominal pain. The nurse did report that this morning his telemetry showed a 9 beat run of nonsustained V-tach for which he was asymptomatic. He was seen on a recent admission by cardiology for the same thing and had a nuclear stress test. He sees Dr Celeste (cardiology) Objective Vitals Vital Signs Date Time Temp Pulse Resp B/P Pulse Ox O2 Delivery O2 Flow Rate FiO2 06/30/16 04:00 98.4 94 18 144/82 99 06/30/16 00:00 98.2 97 18 143/95 100 06/29/16 20:30 103 06/29/16 20:15 100 Nasal Cannula 2.00 06/29/16 20:00 98.4 104 20 133/83 98 06/29/16 16:00 97.9 98 20 150/91 99 06/29/16 12:00 99.2 96 20 166/93 98 06/29/16 08:00 97.9 89 20 158/94 100 06/29/16 07:56 98 Nasal Cannula 2.00 06/29/16 07:00 100 06/29/16 06/29/16 06/30/16 15:00 23:00 07:00 Intake Total 950 ml 2040 ml 100 ml Output Total 350 ml Balance 950 ml 1690 ml 100 ml Intake Oral 600 ml 2040 ml IV Total 350 ml 100 ml Output Urine Total 350 ml # Voids 6 4 # Bowel Movements 4 0 Result Diagram: 06/30/16 0504 06/30/16 0504 Other Results Laboratory Tests Test 06/28/16 06/29/16 06/30/16 09:22 05:28 05:04 Lactic Acid Level 0.9 mmol/L White Blood Count 13.0 TH/MM3 8.0 TH/MM3 Red Blood Count 3.62 MIL/MM3 3.58 MIL/MM3 Hemoglobin 11.1 GM/DL 10.9 GM/DL Hematocrit 33.7 % 33.2 % Mean Corpuscular Volume 93.1 FL 92.7 FL Mean Corpuscular Hemoglobin 30.7 PG 30.5 PG Mean Corpuscular Hemoglobin 32.9 % 32.9 % Concent Red Cell Distribution Width 14.8 % 14.8 % Platelet Count 465 TH/MM3 421 TH/MM3 Mean Platelet Volume 7.4 FL 7.5 FL Neutrophils (%) (Auto) 78.4 % 69.1 % Lymphocytes (%) (Auto) 11.3 % 18.6 % Monocytes (%) (Auto) 6.4 % 8.2 % Eosinophils (%) (Auto) 3.4 % 3.6 % Basophils (%) (Auto) 0.5 % 0.5 % Neutrophils # (Auto) 10.2 TH/MM3 5.5 TH/MM3 Lymphocytes # (Auto) 1.5 TH/MM3 1.5 TH/MM3 Monocytes # (Auto) 0.8 TH/MM3 0.7 TH/MM3 Eosinophils # (Auto) 0.4 TH/MM3 0.3 TH/MM3 Basophils # (Auto) 0.1 TH/MM3 0.0 TH/MM3 CBC Comment DIFF FINAL DIFF FINAL Differential Comment Sodium Level 144 MEQ/L 142 MEQ/L Potassium Level 3.9 MEQ/L 3.4 MEQ/L Chloride Level 114 MEQ/L 112 MEQ/L Carbon Dioxide Level 21.7 MEQ/L 22.0 MEQ/L Anion Gap 8 MEQ/L 8 MEQ/L Blood Urea Nitrogen 6 MG/DL 6 MG/DL Creatinine 0.67 MG/DL 0.64 MG/DL Estimat Glomerular Filtration 117 ML/MIN 124 ML/MIN Rate Random Glucose 107 MG/DL 109 MG/DL Calcium Level 8.3 MG/DL 7.9 MG/DL Total Bilirubin 0.5 MG/DL Aspartate Amino Transf 6 U/L (AST/SGOT) Alanine Aminotransferase 16 U/L (ALT/SGPT) Alkaline Phosphatase 64 U/L Total Protein 5.9 GM/DL Albumin 2.5 GM/DL Imaging Last 72 hours Impressions Abdomen X-Ray 06/27/162105 Signed Impressions: Service Date/Time: Monday, June 27, 2016 21:17 - CONCLUSION: No acute findings. Emanuel Mello MD Objective Remarks Exam: Generarl: WDWN white male in no distress. HEENT: Pupils equal, no scleral icterus Neck: No JVD Heart: RRR with no murmur Lungs: Clear Abdomen: Soft, nontender, no masses Extremities: No edema Neuro: Alert, oriented, no focal deficits A/P Assessment and Plan Assessment: --C. difficile colitis--clinically improving --Diarrhea secondary to C. difficile --Sepsis--WBC now normal --Dehydration--clinically resolved --Hypertension --COPD --Hyperlipidemia --Peripheral artery disease --Paroxysmal ventricular tachycardia--nonsustained and asymptomatic (9 beat run) Plan: Continue IV Flagyl. Increase Lisinopril to 10mg twice a day. Cancel infectious disease consult since he is much improved.. Monitor CBC and BMP. Consult Dr Celeste (cardiology) Give KCL today since potassium was 3.4. Ephraim Chapman MD Jun 30, 2016 06:54
[2016-06-30] MEDS ORDERED: POTASSIUM CHLORIDE 20 MEQ CONTROLLED RELEASE TAB PO ONE (07:00)
[2016-06-30] MEDS: FLUTICASONE 100 MCG/VILANTEROL 25 MCG INHALER INH SCH (08:13)
[2016-06-30] MEDS: CLOPIDOGREL 75 MG TAB PO SCH (08:14)
[2016-06-30] MEDS: MULTIVITAMIN TAB PO SCH (08:14)
[2016-06-30] MEDS: ASPIRIN EC 81 MG TABEC PO SCH (08:14)
[2016-06-30] MEDS: LISINOPRIL 10 MG TAB PO SCH ×2 (08:22→22:05)
[2016-06-30] MEDS: RESP: ALBUTEROL 2.5 MG/IPRATROPIUM 0.5 MG NEB (PRN) NEB ×2 (08:30→19:58)
--- NOTE | 2016-06-30 08:40 | PD.CONS ---
HPI Service CV Consult Requested By Reason for Consult V-tach Primary Care Physician Ryley Rodgers MD History of Present Illness Here with PAD s/p stenting bilateral common iliac arteries, ORA left common iliac and left SFA and stenting left SFA (04/09/16), HTN and hyperlipidemia here for diarrhea. Last night telemetry recorded a 8 beat wide QRS complex tachycardia. He as asymptomatic. He denies chest pain, shortness of breath or palpitations. He denies claudication. This happened earlier this months and echo and SPECT showed no etiology (Andrew Schneider) Review of Systems Consitutional: DENIES: Fatigue, Fever, Chills, Weight gain, Weight loss Eyes: DENIES: Amaurosis Fugax, Change in vision HEENT: DENIES: Lightheadedness, Change in hearing Respiratory: DENIES: See HPI, Cough, Snoring, Shortness of breath, Wheezing, Sputum production Cardiovascular: COMPLAINS OF: See HPI Gastrointestinal: DENIES: Nausea, Vomiting, Change in bowel habits, Reflux, Bloody stools, Melena Genitourinary: DENIES: Urinary incontinence, Difficulty voiding Integumentary: DENIES: Rash Neurologic: DENIES: Tingling or numbness, Memory problems, Poor Balance, Stroke symptoms Musculoskeletal: DENIES: Joint pain, Muscle pain, Limited range of motion, Back pain Psychiatric: DENIES: Anxiety, Depression, Sleep disturbances Hematologic: DENIES: Bruising tendencies, Bleeding tendencies Endocrine: DENIES: Weight gain, Weight loss, Thyroid disease (Andrew Schneider ) Past Family Social History Allergies: Coded Allergies: No Known Allergies (Verified , 06/27/16) Past Medical History see HPI Alcohol dependence with history of withdrawal Anxiety COPD with chronic respiratory failure requiring supplemental oxygen at home Reaves's esophagus GERD Hyperthyroidism Past Surgical History see HPI Bilateral total hip replacement Colonoscopy and EGD in 2006 Reported Medications Reported Meds & Active Scripts Active Lisinopril 10 Mg Tab 10 Mg PO DAILY Thera/Beta-Carotene (Multiple Vitamin) 1 Tab Tab 1 Tab PO DAILY Plavix (Clopidogrel Bisulfate) 75 Mg Tab 75 Mg PO DAILY Reported [Oxygen] 2 Liter INH DAILY Tylenol Extra Strength (Acetaminophen) 500 Mg Tab 500 Mg PO Q4-6H PRN Ventolin Hfa 18 GM Inh (Albuterol Sulfate) 90 Mcg/Act Aer 2 Puff INH Q4-6H PRN Ipratropium Neb (Ipratropium [place]) 0.5 Mg/2.5 Ml Amp 0.5 Mg NEB Q6HR NEB Breo Ellipta Inh (Fluticasone/Vilanterol) 100-25 Mcg/Act Inh 1 Puff INH DAILY Use daily at the same time. Albuterol Neb (Albuterol Sulfate) 2.5 Mg/3 Ml Neb 2.5 Mg NEB Q4HR NEB While awake Lorazepam 1 Mg Tab 1 Mg PO BID Atorvastatin (Atorvastatin Calcium) 20 Mg Tab 20 Mg PO HS Aspir-81 (Aspirin) 81 Mg Tabdr 81 Mg PO Active Ordered Medications Current Medications Medications (Trade) Dose Ordered Sig/Helen Route Start Time Stop Time Status Last Admin (Flagyl 500 Mg Inj) 100 ml @ 100 mls/hr Q8HR IV 06/28/16 06:00 06/30/16 06:03 (Ativan Inj) 1 mg Q4H PRN IV PUSH 06/27/16 22:45 Miscellaneous Information Patient in critical care unit? Ass... [id number] XX 06/28/16 01:30 06/28/16 01:30 (Chlorhexidine 2% Cloth) 3 pack DAILY@04 TOP 06/28/16 04:00 07/02/16 04:01 06/28/16 03:29 (Chlorhexidine 2% Cloth) 3 pack UNSCH PRN TOP 06/28/16 01:30 07/03/16 01:17 (Ativan) 1 mg HS PO 06/28/16 21:00 06/29/16 20:34 (Lipitor) 20 mg HS PO 06/28/16 21:00 06/29/16 20:34 (Plavix) 75 mg DAILY PO 06/28/16 09:00 06/29/16 09:19 (Breo Ellipta 100-25 Inh) 1 puff DAILY INH 06/28/16 09:00 06/29/16 11:06 (Prinivil) 10 mg DAILY PO 06/28/16 09:00 06/29/16 11:06 (Theragran) 1 tab DAILY PO 06/28/16 09:00 06/29/16 09:19 (Ecotrin Ec) 81 mg DAILY PO 06/28/16 09:00 06/29/16 09:19 (Prinivil) 10 mg Q12HR PO 06/29/16 09:00 06/29/16 20:34 Family History noncontributory Social History Smokes one pack of cigarettes per day X 50 years Occasional EtOH, denies substance abuse (Andrew Schneider) Physical Exam Vital Signs Vital Signs Date Time Temp Pulse Resp B/P Pulse Ox O2 Delivery O2 Flow Rate FiO2 06/30/16 04:00 98.4 94 18 144/82 99 06/30/16 00:00 98.2 97 18 143/95 100 06/29/16 20:30 103 06/29/16 20:15 100 Nasal Cannula 2.00 06/29/16 20:00 98.4 104 20 133/83 98 06/29/16 16:00 97.9 98 20 150/91 99 06/29/16 12:00 99.2 96 20 166/93 98 Physical Exam GENERAL: Well-nourished, well-developed patient in no apparent distress. NECK: No JVD. No carotid bruit. CARDIOVASCULAR: Regular rate and rhythm. S1/S2 no murmur, rub, or gallop. RESPIRATORY: No accessory muscle use. Clear to auscultation. Breath sounds equal bilaterally. GASTROINTESTINAL: Abdomen soft, non-tender, nondistended. MUSCULOSKELETAL: Extremities without clubbing, cyanosis, or edema. Laboratory Laboratory Tests Test 06/30/16 05:04 White Blood Count 8.0 Red Blood Count 3.58 Hemoglobin 10.9 Hematocrit 33.2 Mean Corpuscular Volume 92.7 Mean Corpuscular Hemoglobin 30.5 Mean Corpuscular Hemoglobin 32.9 Concent Red Cell Distribution Width 14.8 Platelet Count 421 Mean Platelet Volume 7.5 Neutrophils (%) (Auto) 69.1 Lymphocytes (%) (Auto) 18.6 Monocytes (%) (Auto) 8.2 Eosinophils (%) (Auto) 3.6 Basophils (%) (Auto) 0.5 Neutrophils # (Auto) 5.5 Lymphocytes # (Auto) 1.5 Monocytes # (Auto) 0.7 Eosinophils # (Auto) 0.3 Basophils # (Auto) 0.0 CBC Comment DIFF FINAL Differential Comment Sodium Level 142 Potassium Level 3.4 Chloride Level 112 Carbon Dioxide Level 22.0 Anion Gap 8 Blood Urea Nitrogen 6 Creatinine 0.64 Estimat Glomerular Filtration 124 Rate Random Glucose 109 Calcium Level 7.9 Date/Time Procedure Status Source Growth 3/12/17 03:40 - Final Complete Stool Stool NO ENTERIC PATHOGENS DETECTED BY PCR... 06/27/16 21:28 Aerobic Blood Culture - Preliminary Resulted Blood Peripheral NO GROWTH IN 2 DAYS 06/27/16 21:28 Anaerobic Blood Culture - Preliminary Resulted Blood Peripheral NO GROWTH IN 2 DAYS (Andrew Schneider) Result Diagram: 06/30/16 0504 06/30/16 0504 Assessment and Plan Problem List: (1) Wide-complex tachycardia Assessment and Plan This maybe related to electrolyte abnormality with his one week of diarrhea. Work up concerning this was normal earlier this month. Start metoprolol 25 mg BID. Sign off call with further questions (Andrew Schneider) Assessment and Plan tele reviewed WCT does appear to be slow VT with negative P waves in ST segment. normal EF asymptomatic recent negative ischemic workup. no need to repeat. agree. It may be electrolyte induced. conservative mgt add BB. upon DC, will coordinate outpatient holter monitor. will sign off call with further questions (Noel Celeste MD) Andrew Schneider Jun 30, 2016 08:40 Noel Celeste MD Jun 30, 2016 10:33
[2016-06-30] MEDS: METOPROLOL TARTRATE 25 MG TAB PO SCH ×2 (10:06→22:05)
[2016-06-30] MEDS: LORazepam 1 MG TAB PO SCH (22:04)
[2016-06-30] MEDS: ATORVASTATIN 20 MG TAB PO SCH (22:04)
[2016-07-01] VITALS: BP 141/92; PULSE 76; RESP 18; TEMP 98; O2SAT 100
[2016-07-01 04:00] VITALS: BP 145/92; PULSE 91; RESP 19; TEMP 96.4; O2SAT 99
[2016-07-01] MEDS: CHLORHEXIDINE GLUCONATE 2 % 1 PACK (2 CLOTHS)(taper/protocol) TOP SCH (04:00)
[2016-07-01] MEDS: metroNIDAZOLE 500 MG INJ 100 ML IV SCH (05:38)
[2016-07-01 06:34] LABS: AUTOMATED NEUTROPHIL # 3.3 TH/MM3 (1.8-7.7); BASOPHIL % 0.8 % (0.0-2.0); EOSINOPHIL # 0.2 TH/MM3 (0-0.4); EOSINOPHIL % 4.1 % (0.0-4.0); HEMATOCRIT 34.2 % (39.0-51.0); HEMO FLAGS DIFF FINAL; LYMPH % 29.4 % (9.0-44.0); LYMPHOCYTE # 1.7 TH/MM3 (1.0-4.8); MEAN CELL VOLUME 93.6 FL (80.0-100.0); MEAN CORPUSCULAR HEMOGLOBIN 30.1 PG (27.0-34.0); MEAN CORPUSCULAR HGB CONC 32.2 % (32.0-36.0); MONO % 12.6 % (0.0-8.0); NEUT % 53.1 % (16.0-70.0); PLATELET COUNT 423 TH/MM3 (150-450); RED BLOOD COUNT 3.66 MIL/MM3 (4.50-5.90); RED CELL DISTRIBUTION WIDTH 14.9 % (11.6-17.2); WHITE BLOOD COUNT 5.9 TH/MM3 (4.0-11.0)
[2016-07-01 06:38] LABS: POTASSIUM 3.8 MEQ/L (3.5-5.1)
[2016-07-01 06:42] LABS: BICARBONATE 23.6 MEQ/L (21.0-32.0)
[2016-07-01] MEDS ORDERED: METO25TA3 PO (07:01)
[2016-07-01] MEDS ORDERED: LISI10TA3 PO (07:01)
[2016-07-01] MEDS ORDERED: METR500T10 PO (07:01)
--- NOTE | 2016-07-01 08:33 | HHI.DS ---
Discharge Summary Admission Date Jun 27, 2016 at 22:19 Discharge Date: Jul 01, 2016 Admitting Diagnosis hypotension, diarrhea (1) Clostridium difficile colitis Diagnosis: Principal (2) Diarrhea Diagnosis: Principal (3) Dehydration Diagnosis: Principal (4) Sepsis Diagnosis: Principal (5) COPD (chronic obstructive pulmonary disease) Diagnosis: Secondary (6) Hypertension Diagnosis: Secondary (7) Hyperlipemia Diagnosis: Secondary (8) PAD (peripheral artery disease) Diagnosis: Secondary (9) Wide-complex tachycardia Diagnosis: Secondary [facility] (Dr Celeste) Brief History 71-year-old male with history of COPD, hyperthyroidism and alcohol dependence presents with a one-week history of diarrhea. He states that he has 6-7 episodes per day. No associated vomiting. No associated fever. No abdominal pain except for occasional cramping. He states that he feels weak but is not dizzy. He denies any urinary tract symptoms. He reports good urine output. No robi hematochezia but has noted occasional spot of blood on the tissue after multiple episodes of diarrhea. It is noted that patient was hospitalized from June 17- for hypotension as outpatient systolic pressures in the 60s which was presumed to be associated with sepsis/SIRS. He was treated with broad -spectrum antibiotics empirically for sepsis. His cultures were negative. He had some V. tach on June 20 while he was in the hospital. This did not recur. He had a subsequent Lexiscan that was negative for ischemia and echo that showed normal left ventricular function with an ejection fraction of 50-55%. It is noted that he was discharged home on levofloxacin and that he started having diarrhea after his second dose of levofloxacin per his report. He has been treated here with metronidazole and IV fluids. He is still having diarrhea overnight but the volume of the bowel movements is less. There's been no blood in the diarrhea here. He was initially somewhat hypotensive on the current admission with systolic pressures in the 80s and elevated heart rate is well. He has responded well to IV fluids and his blood pressures now systolically in the 150s with heart rate in the 90s. (I should note that the history on admission just stated was from Dr Amaro admission note) CBC/BMP: 07/01/16 0518 07/01/16 0518 Significant Findings Laboratory Tests Test 06/27/16 06/28/16 06/28/16 06/28/16 21:20 01:10 03:40 06:09 Ethyl Alcohol Level 85 MG/DL Nasal Screen MRSA (PCR) NEGATIVE Stool C. difficile Toxin (PCR) POSITIVE Stl C. difficile Toxin PRESUMPTIVE Epiderm 027 POSITIVE Magnesium Level 1.6 MG/DL C-Reactive Protein 6.30 MG/DL Test 06/28/16 06/29/16 07/01/16 09:22 05:28 05:18 Lactic Acid Level 0.9 mmol/L Total Bilirubin 0.5 MG/DL Aspartate Amino Transf 6 U/L (AST/SGOT) Alanine Aminotransferase 16 U/L (ALT/SGPT) Alkaline Phosphatase 64 U/L Total Protein 5.9 GM/DL Albumin 2.5 GM/DL White Blood Count 5.9 TH/MM3 Red Blood Count 3.66 MIL/MM3 Hemoglobin 11.0 GM/DL Hematocrit 34.2 % Mean Corpuscular Volume 93.6 FL Mean Corpuscular Hemoglobin 30.1 PG Mean Corpuscular Hemoglobin 32.2 % Concent Red Cell Distribution Width 14.9 % Platelet Count 423 TH/MM3 Mean Platelet Volume 7.4 FL Neutrophils (%) (Auto) 53.1 % Lymphocytes (%) (Auto) 29.4 % Monocytes (%) (Auto) 12.6 % Eosinophils (%) (Auto) 4.1 % Basophils (%) (Auto) 0.8 % Neutrophils # (Auto) 3.3 TH/MM3 Lymphocytes # (Auto) 1.7 TH/MM3 Monocytes # (Auto) 0.7 TH/MM3 Eosinophils # (Auto) 0.2 TH/MM3 Basophils # (Auto) 0.0 TH/MM3 CBC Comment DIFF FINAL Differential Comment Sodium Level 143 MEQ/L Potassium Level 3.8 MEQ/L Chloride Level 110 MEQ/L Carbon Dioxide Level 23.6 MEQ/L Anion Gap 9 MEQ/L Blood Urea Nitrogen 6 MG/DL Creatinine 0.68 MG/DL Estimat Glomerular Filtration 115 ML/MIN Rate Random Glucose 104 MG/DL Calcium Level 8.3 MG/DL Laboratory Tests Test 06/29/16 06/30/16 07/01/16 05:28 05:04 05:18 White Blood Count 13.0 TH/MM3 (4.0-11.0) Red Blood Count 3.62 MIL/MM3 3.58 MIL/MM3 3.66 MIL/MM3 (4.50-5.90) (4.50-5.90) (4.50-5.90) Hemoglobin 11.1 GM/DL 10.9 GM/DL 11.0 GM/DL (13.0-17.0) (13.0-17.0) (13.0-17.0) Hematocrit 33.7 % 33.2 % 34.2 % (39.0-51.0) (39.0-51.0) (39.0-51.0) Platelet Count 465 TH/MM3 (150-450) Neutrophils (%) (Auto) 78.4 % (16.0-70.0) Neutrophils # (Auto) 10.2 TH/MM3 (1.8-7.7) Chloride Level 114 MEQ/L 112 MEQ/L 110 MEQ/L (98-107) (98-107) (98-107) Blood Urea Nitrogen 6 MG/DL (7-18) 6 MG/DL (7-18) 6 MG/DL (7-18) Random Glucose 107 MG/DL 109 MG/DL (74-106) (74-106) Calcium Level 8.3 MG/DL 7.9 MG/DL 8.3 MG/DL (8.5-10.1) (8.5-10.1) (8.5-10.1) Aspartate Amino Transf 6 U/L (15-37) (AST/SGOT) Total Protein 5.9 GM/DL (6.4-8.2) Albumin 2.5 GM/DL (3.4-5.0) Monocytes (%) (Auto) 8.2 % (0.0-8.0) 12.6 % (0.0-8.0) Potassium Level 3.4 MEQ/L (3.5-5.1) Eosinophils (%) (Auto) 4.1 % (0.0-4.0) Imaging Last Impressions Abdomen X-Ray 06/27/169 Signed Impressions: Service Date/Time: Monday, June 27, 2016 21:17 - CONCLUSION: No acute findings. Emanuel Mello MD PE at Discharge Exam: Generarl: WDWN white male in no distress. HEENT: Pupils equal, no scleral icterus Neck: No JVD Heart: RRR with no murmur Lungs: Clear Abdomen: Soft, nontender, no masses Extremities: No edema Neuro: Alert, oriented, no focal deficits Hospital Course Patient was admitted and stool studies were done for C. Difficile organism. He was put on IV Flagyl and IV fluids. His elevated WBC started coming down and his multiple episodes of diarrhea started lessening. He clinically has responded to Flagyl and his stools are becoming more formed and he is now having only around 4 stools a day. He has no rectal bleeding. Cardiology was consulted because he was noted on his telemetry in the morning of 06-30-16 to have a wide QRS complex tachycardia of 9 beats with no symptoms. On his last hospitalization this year he had evaluation by cardiology for ventricular tachycardia and a nuclear stress test was negative and a 2D echo was done also. He was seen by cardiology and they started him on Metoprolol 25mg twice a day. He is clinically improved. He will be discharged to followup with Dr Cristina in one week. He will be treated with Metronidazole 500mg three times a day for 2 weeks and then should have his stool tested again for C. Difficile. He was warned not to drink alcohol while on the Metronidazole. He will continue his home medications. I should note he does wear oxygen only at night so he will continue that. Pt Condition on Discharge: Stable Discharge Disposition: Discharge Home Discharge Instructions DIET: Follow Instructions for: Heart Healthy Diet Fluid Restrictions: None Activities you can perform: Regular-No Restrictions Follow up Referrals: PCP Follow-up - [address] Cristina New Medications: Metronidazole (Metronidazole) 500 Mg Tab 500 MG PO TID Infection Days 14 Ref 0 TAB Lisinopril (Lisinopril) 10 Mg Tab 10 MG PO Q12HR hypertension #60 Ref 3 TAB Metoprolol Tartrate (Metoprolol Tartrate) 25 Mg Tab 25 MG PO Q12HR hypertenison #60 Ref 3 TAB Continued Medications: Acetaminophen (Tylenol Extra Strength) 500 Mg Tab 500 MG PO Q4-6H PRN PAIN Ref 0 TAB Albuterol 18 GM Inh (Ventolin Hfa 18 GM Inh) 90 Mcg/Act Aer 2 PUFF INH Q4-6H PRN SHORTNESS OF BREATH #1 Ref 0 INHALER Albuterol Neb (Albuterol Neb) 2.5 Mg/3 Ml Neb 2.5 MG NEB Q4HR NEB While awake Breathing Treatment #60 Ref 0 NEBULE Aspirin (Aspir-81) 81 Mg Tabdr 81 MG PO htn Atorvastatin (Atorvastatin) 20 Mg Tab 20 MG PO HS Cholesterol Management #30 Ref 0 TAB Clopidogrel (Plavix) 75 Mg Tab 75 MG PO DAILY pad #30 Ref 11 TAB Fluticasone-Vilanterol Inh (Breo Ellipta Inh) 100-25 Mcg/Act Inh 1 PUFF INH DAILY Use daily at the same time. #1 Ref 0 INHALER Ipratropium Neb (Ipratropium Neb) 0.5 Mg/2.5 Ml Amp 0.5 MG NEB Q6HR NEB Breathing Treatment Ref 0 NEBULE Lorazepam (Lorazepam) 1 Mg Tab 1 MG PO BID Ref 0 TAB Multiple Vitamin (Thera/Beta-Carotene) 1 Tab Tab 1 TAB PO DAILY etoh #30 Ref 0 TAB ([Oxygen]) 2 LITER INH DAILY Discontinued Medications: Lisinopril (Lisinopril) 10 Mg Tab 10 MG PO DAILY htn #30 TAB Ephraim Chapman MD Jul 01, 2016 08:33
== END 2016-07-01 08:55 | disposition home or self-care (01) | DRG 872 ==
LOC: PHED 20:50 → PHEDA 22:19 → PHICU 06-28 00:39 → PH3B 06-28 17:05
PROVIDERS: ADMIT Internal Medicine; ATTEND Internal Medicine
DX: A41.9 Sepsis, unspecified organism (principal); I47.2 Ventricular tachycardia; J96.10 Chronic respiratory failure, unspecified whether with hypoxia or hypercapnia; A04.7 Enterocolitis due to Clostridium difficile; K22.70 Barrett's esophagus without dysplasia; J44.9 Chronic obstructive pulmonary disease, unspecified; E86.0 Dehydration; F17.210 Nicotine dependence, cigarettes, uncomplicated; I10 Essential (primary) hypertension; K21.9 Gastro-esophageal reflux disease without esophagitis; E78.5 Hyperlipidemia, unspecified; F41.9 Anxiety disorder, unspecified; I73.9 Peripheral vascular disease, unspecified; F10.20 Alcohol dependence, uncomplicated; Z99.81 Dependence on supplemental oxygen
CPT/HCPCS: 74000; 80048; 80053; 80307; 83605; 83735; 85025; 86140; 87040; 87493; 87506; 87641; 94640; 94664; 96360; J3480; J7030

== ENCOUNTER 2016-12-22 23:20 | Inpatient (IN) | payer MEDICARE ==
[~2016-12-22] VITALS: Ht 172.7 cm; Wt 90.7 kg
[2016-12-22 23:20] VITALS: BP 203/115; PULSE 138; RESP 44; TEMP 101.9; O2SAT 100; O2SAT 92
[~2016-12-22 23:20] MED LIST changes: -FOLI1TAB4 PO; -LEVA500T PO; -LEXA10TA PO; +METO25TA3 PO; +METR500T10 PO
[2016-12-22] MEDS ORDERED: ETOMIDATE 20 MG/10 ML VIAL ONE (23:26)
[2016-12-22] MEDS ORDERED: PROPOFOL 1000 MG/100 ML INJ 0 ML ONE (23:27)
[2016-12-22] MEDS ORDERED: ROCURONIUM INJ 50 MG/5 ML VIAL ONE (23:27)
[2016-12-22] MEDS ORDERED: LIDOCAINE HCL 2% 100 MG/5 ML SYRINGE ONE (23:27)
[2016-12-22] MEDS ORDERED: SODIUM CHLOR 0.9% 1000 ML INJ 1,000 ML IV ONE (23:31)
[2016-12-22] MEDS ORDERED: SODIUM CHLOR 0.9% 1000 ML INJ 800 ML IV ONE (23:31)
[2016-12-22] MEDS: RESP: ALBUTEROL 2.5 MG/IPRATROPIUM 0.5 MG NEB (SCH) INH ×3 (23:42→23:59)
[2016-12-22] MEDS ORDERED: ACETAMINOPHEN 650 MG SUPP RECTAL ONE (23:45)
[2016-12-22] MEDS ORDERED: AZITHROMYCIN INJ 500 MG in SODIUM CHLOR 0.9% 250 ML INJ 250 ML IV ONE (23:45)
[2016-12-22] MEDS ORDERED: cefTRIAXone INJ 1,000 MG in SODIUM CHLORIDE 0.9% INJ 100 ML IV ONE (23:45)
[2016-12-22] MEDS ORDERED: methylPREDNISolone SOD SUCC 125 MG/2 ML VIAL IV PUSH ONE (23:45)
--- NOTE | 2016-12-22 23:48 | RADRPT ---
EXAM DATE/TIME: 12/22/2016 23:33 [facility] COMPARISON: CHEST SINGLE AP, June 17, 2016, 12:28. INDICATIONS : Short of breath. MEDICAL HISTORY : Hypertension. SURGICAL HISTORY : None. ENCOUNTER: Initial ACUITY: 1 day PAIN SCORE: Non-responsive. LOCATION: Bilateral chest FINDINGS: Minimal right basilar airspace disease. Cardiomediastinal contours are stable. Bony thorax is intact. CONCLUSION: 1. Minimal right basilar airspace disease, likely atelectasis. Que Nicole MD on December 22, 2016 at 23:46 Board Certified Radiologist. This report was verified electronically.
[2016-12-22 23:49] VITALS: BP 184/116; PULSE 134; RESP 32; O2SAT 99
[2016-12-22 23:54] LABS: AUTOMATED NEUTROPHIL # 6.1 TH/MM3 (1.8-7.7); BASOPHIL % 0.2 % (0.0-2.0); EOSINOPHIL % 0.4 % (0.0-4.0); HEMATOCRIT 44.7 % (39.0-51.0); HEMO FLAGS DIFF FINAL; LYMPH % 24.4 % (9.0-44.0); LYMPHOCYTE # 2.2 TH/MM3 (1.0-4.8); MEAN CELL VOLUME 100.8 FL (80.0-100.0); MEAN CORPUSCULAR HEMOGLOBIN 33.1 PG (27.0-34.0); MEAN CORPUSCULAR HGB CONC 32.8 % (32.0-36.0); PLATELET COUNT 204 TH/MM3 (150-450); RED BLOOD COUNT 4.44 MIL/MM3 (4.50-5.90); RED CELL DISTRIBUTION WIDTH 14.7 % (11.6-17.2); WHITE BLOOD COUNT 9.2 TH/MM3 (4.0-11.0)
[2016-12-23] VITALS (48 sets, daily range): BP systolic 119–193; BP diastolic 73–107; PULSE 78–131; RESP 10–38; TEMP 97.3–101.7; O2SAT 94–100
[2016-12-23 00:02] LABS: CHLORIDE 102 MEQ/L (98-107); POTASSIUM 3.8 MEQ/L (3.5-5.1); SODIUM (NA) 136 MEQ/L (136-145)
[2016-12-23 00:06] LABS: ANION GAP 10 MEQ/L (5-15); BICARBONATE 24.2 MEQ/L (21.0-32.0); BLOOD UREA NITROGEN 9 MG/DL (7-18)
[2016-12-23 00:09] LABS: ALT (GPT) 35 U/L (12-78); AST (GOT) 65 U/L (15-37); GLOMERULAR FILTRATION RATE 85 ML/MIN (>89)
[2016-12-23 00:11] LABS: TOTAL BILIRUBIN ADULT 0.8 MG/DL (0.2-1.0)
[2016-12-23 00:14] LABS: CREATINE KINASE 246 U/L (39-308)
[2016-12-23 00:15] LABS: ALKALINE PHOSPHATASE 120 U/L (45-117)
[2016-12-23 00:19] LABS: BLOOD GAS BASE EXCESS 0.3 mmol/L (-2-2); BLOOD GAS CARBOXYHEMOGLOBIN 1.7 % (0-4); BLOOD GAS HCO3 25 mmol/L (22-26); BLOOD GAS METHEMOGLOBIN 1.5 % (0-2); BLOOD GAS O2 HGB SATURATION 97 % (90-100); BLOOD GAS OXYGEN CONTENT 18.4 Vol % (12.0-20.0); BLOOD GAS PCO2 42 mmHG (38-42); BLOOD GAS PO2 240 mmHG (61-120); BLOOD GAS TOTAL HGB 13.2 G/DL (12.0-16.0); CRITICAL VALUE NO; OXYGEN DEVICE BIPAP; TEMP CORR TO 98.6
[2016-12-23 00:20] LABS: DRAW SITE LT RADIAL; FIO2 60 %; NUMBER OF ARTERIAL PUNCTURES 2; STAT YES; ULNAR PULSE Y
[2016-12-23 00:27] LABS: CKMB 6.6 NG/ML (0.5-3.6)
--- NOTE | 2016-12-23 00:34 | PD ---
HPI Chief Complaint: Respiratory Distress Time Seen by Provider: 23:31 Travel History International Travel<30 days: No Contact w/Intl Traveler<30days: No Traveled to known affect area: No History of Present Illness HPI 71-year-old male with history of COPD brought in by ambulance from home for evaluation of shortness of breath and hypoxia. Patient has had worsening shortness of breath over the last 2 days. When EMS arrived at his home, his saturation was in the 80s and he was in severe respiratory distress and diaphoretic. He denies having any chest pain. He was started on CPAP and O2 saturation improved to 98%. Upon arrival to the emergency department the patient is in severe respiratory distress. He is speaking a few words at a time. Again he is denying chest pain. He has been having a cough productive of greenish sputum for the last couple of days. No hemoptysis. He denies history of DVT or PE. Patient was immediately switched to BiPAP upon arrival to the emergency department. I discussed that I would like to intubate the patient should his symptoms not improve or worsen and he was okay with this plan. Thankfully, his symptoms did improve on BiPAP. PFSH Past Medical History Hx Anticoagulant Therapy: Yes Arthritis: Yes Asthma: No Autoimmune Disease: No Blood Disorders: No Anxiety: No Depression: No Heart Rhythm Problems: No Cancer: Yes (SKIN CANCER REMOVAL) Cardiovascular Problems: Yes (STENTS) High Cholesterol: Yes Chemotherapy: No Chest Pain: No Congestive Heart Failure: No COPD: Yes Cerebrovascular Accident: No Diabetes: No Diminished Hearing: No Endocrine: No Gastrointestinal Disorders: Yes GERD: Yes Glaucoma: No Genitourinary: No Headaches: No Hepatitis: No Hiatal Hernia: Yes Hypertension: Yes Immune Disorder: No Implanted Vascular Access Dvce: Yes Kidney Stones: No Medical other: Yes (C-DIFF) Musculoskeletal: Yes Neurologic: Yes Psychiatric: No Reproductive: No Respiratory: Yes Integumentary: No Immunizations Current: Yes Migraines: No Myocardial Infarction: No Radiation Therapy: No Renal Failure: No Seizures: No Sickle Cell Disease: No Sleep Apnea: No Thyroid Disease: Yes (HYPERTHYROID) Ulcer: No Past Surgical History Abdominal Surgery: Yes (HERNIA REPAIR WITH MESH) AICD: No Appendectomy: No Arteriovenous Shunt: No Body Medical Devices: Stents LE's, BL hips Cardiac Surgery: Yes Cholecystectomy: No Ear Surgery: No Endocrine Surgery: No Eye Surgery: No Genitourinary Surgery: No Gynecologic Surgery: No Insulin Pump: No Joint Replacement: Yes (BILATERAL HIPS) Neurologic Surgery: No Oral Surgery: No Pacemaker: No Thoracic Surgery: Yes Other Surgery: Yes (NODULE REMOVED FROM VOCAL CORD) Social History Alcohol Use: Yes (A COUPLE TIMES A WEEK) Tobacco Use: Yes (1 PPD) Substance Use: No Allergies-Medications (Allergen,Severity, Reaction): Coded Allergies: No Known Allergies (Verified , 06/27/16) Reported Meds & Prescriptions Reported Meds & Active Scripts Active Metoprolol Tartrate 25 Mg Tab 25 Mg PO Q12HR Lisinopril 10 Mg Tab 10 Mg PO Q12HR Thera/Beta-Carotene (Multiple Vitamin) 1 Tab Tab 1 Tab PO DAILY Plavix (Clopidogrel Bisulfate) 75 Mg Tab 75 Mg PO DAILY Reported [Oxygen] 2 Liter INH DAILY Ventolin Hfa 18 GM Inh (Albuterol Sulfate) 90 Mcg/Act Aer 2 Puff INH Q4-6H PRN Breo Ellipta Inh (Fluticasone/Vilanterol) 100-25 Mcg/Act Inh 1 Puff INH DAILY Use daily at the same time. Albuterol Neb (Albuterol Sulfate) 2.5 Mg/3 Ml Neb 2.5 Mg NEB Q4HR NEB While awake Lorazepam 1 Mg Tab 1 Mg PO BID Atorvastatin (Atorvastatin Calcium) 20 Mg Tab 20 Mg PO HS Aspir-81 (Aspirin) 81 Mg Tabdr 81 Mg PO Review of Systems Except as stated in HPI: all other systems reviewed are Neg Physical Exam Narrative GENERAL: Well-developed, well-nourished, severe respiratory distress, speaking a few words at a time SKIN: Focused skin assessment warm/diaphoretic. HEAD: Atraumatic. Normocephalic. EYES: Pupils equal and round. No scleral icterus. No injection or drainage. ENT: Mucous membranes pink and dry. NECK: Trachea midline. No JVD. CARDIOVASCULAR: Tachycardic, regular. RESPIRATORY: Severe respiratory distress, accessory muscle use, speaking a few words at a time, diminished breath sounds bilaterally with end expiratory wheezes bilaterally. GASTROINTESTINAL: Abdomen soft, non-tender, nondistended. MUSCULOSKELETAL: No obvious deformities. No clubbing. No cyanosis. No edema. NEUROLOGICAL: Awake and alert. No obvious cranial nerve deficits. Motor grossly within normal limits. Normal speech. PSYCHIATRIC: Appropriate mood and affect; insight and judgment normal. Data Data Last Documented VS Vital Signs Date Time Temp Pulse Resp B/P (MAP) Pulse Ox O2 Delivery O2 Flow Rate FiO2 12/23/16 01:23 100.5 128 20 135/81 (99) 99 BiPAP 40 Orders Orders Etomidate Inj (Amidate Inj) (12/22/16 23:26) Lidocaine 2% Inj (Xylocaine 2% Inj) (12/22/16 23:27) Propofol 1000 Mg/100 Ml Inj (Diprivan 10 (12/22/16 23:27) Rocuronium Inj (Zemuron Inj) (12/22/16 23:27) Electrocardiogram (12/22/16 23:31) Complete Blood Count With Diff (12/22/16 23:31) Comprehensive Metabolic Panel (12/22/16 23:31) Lactic Acid Sepsis Protocol (12/22/16 23:31) Ckmb (Isoenzyme) Profile (12/22/16 23:31) Troponin I (12/22/16 23:31) Urinalysis - C+S If Indicated (12/22/16 23:31) Blood Culture (12/22/16 23:31) Chest, Single Ap (12/22/16 23:31) Blood Glucose (12/22/16 23:31) Ecg Monitoring (12/22/16 23:31) Iv Access Insert/Monitor (12/22/16 23:31) Oximetry (12/22/16 23:31) Oxygen Administration (12/22/16 23:31) Sodium Chlor 0.9% 1000 Ml Inj (Ns 1000 M (12/22/16 23:31) Sodium Chlor 0.9% 1000 Ml Inj (Ns 1000 M (12/22/16 23:31) Acetaminophen Supp (Tylenol Supp) (12/22/16 23:45) Resp Bipap / Cpap Non Invas Vt (12/22/16 ) Albuterol-Ipratropium Neb (Duoneb Neb) (12/22/16 23:45) Ceftriaxone Inj (Rocephin Inj) (12/22/16 23:45) Azithromycin Inj (Zithromax Inj) (12/22/16 23:45) Methylprednisolone So Succ Inj (Solumedr (12/22/16 23:45) Arterial Blood Gas (Abg) (12/22/16 ) CKMB (12/22/16 23:20) CKMB% (12/22/16 23:20) Ct Pulmonary Angiogram (12/23/16 00:30) Iohexol 350 Inj (Omnipaque 350 Inj) (12/23/16 01:17) Urinary Catheter Insert/Apply (12/23/16 01:46) Enoxaparin Inj (Lovenox Inj) (12/23/16 02:00) Labs Laboratory Tests Test 12/22/16 23:20 12/23/16 00:05 White Blood Count 9.2 TH/MM3 Red Blood Count 4.44 MIL/MM3 Hemoglobin 14.7 GM/DL Hematocrit 44.7 % Mean Corpuscular Volume 100.8 FL Mean Corpuscular Hemoglobin 33.1 PG Mean Corpuscular Hemoglobin Concent 32.8 % Red Cell Distribution Width 14.7 % Platelet Count 204 TH/MM3 Mean Platelet Volume 7.2 FL Neutrophils (%) (Auto) 65.0 % Lymphocytes (%) (Auto) 24.4 % Monocytes (%) (Auto) 10.0 % Eosinophils (%) (Auto) 0.4 % Basophils (%) (Auto) 0.2 % Neutrophils # (Auto) 6.1 TH/MM3 Lymphocytes # (Auto) 2.2 TH/MM3 Monocytes # (Auto) 0.9 TH/MM3 Eosinophils # (Auto) 0.0 TH/MM3 Basophils # (Auto) 0.0 TH/MM3 CBC Comment DIFF FINAL Differential Comment Blood Urea Nitrogen 9 MG/DL Creatinine 0.89 MG/DL Random Glucose 149 MG/DL Total Protein 7.7 GM/DL Albumin 3.7 GM/DL Calcium Level 8.6 MG/DL Alkaline Phosphatase 120 U/L Aspartate Amino Transf (AST/SGOT) 65 U/L Alanine Aminotransferase (ALT/SGPT) 35 U/L Total Bilirubin 0.8 MG/DL Sodium Level 136 MEQ/L Potassium Level 3.8 MEQ/L Chloride Level 102 MEQ/L Carbon Dioxide Level 24.2 MEQ/L Anion Gap 10 MEQ/L Estimat Glomerular Filtration Rate 85 ML/MIN Lactic Acid Level 3.0 mmol/L Total Creatine Kinase 246 U/L Creatine Kinase MB 6.6 NG/ML Troponin I 0.03 NG/ML Blood Gas Puncture Site LT RADIAL Blood Gas Patient Temperature 98.6 Blood Gas HCO3 25 mmol/L Blood Gas Base Excess 0.3 mmol/L Blood Gas Oxygen Saturation 97 % Arterial Blood pH 7.39 Arterial Blood Partial Pressure CO2 42 mmHG Arterial Blood Partial Pressure O2 240 mmHG Arterial Blood Oxygen Content 18.4 Vol % Arterial Blood Carboxyhemoglobin 1.7 % Arterial Blood Methemoglobin 1.5 % Blood Gas Hemoglobin 13.2 G/DL Oxygen Delivery Device BIPAP Blood Gas Inspired Oxygen 60 % MDM Medical Decision Making Medical Screen Exam Complete: Yes Emergency Medical Condition: Yes Medical Record Reviewed: Yes Differential Diagnosis COPD exacerbation, sepsis, pneumonia, pneumothorax, PE, ACS, pulmonary edema Narrative Course Initial vital signs show heart rate 138, blood pressure 203/115, pulse ox 92% on 60% FiO2, rectal temp of 101.9F. CBC shows WBC 9.2, hemoglobin 14.7, hematocrit 44.7, platelets 204. CMP is remarkable for random glucose 149, otherwise essentially unremarkable. Lactic acid is 3. Cardiac enzymes are negative. Chest x-ray shows minimal right basilar airspace disease, likely atelectasis. Patient was started on IV Rocephin and IV azithromycin. He was also given 2 L of normal saline IV and rectal Tylenol. Heart rate remains in the 120s. I have a high suspicion of PE, so CT pulmonary angiogram was ordered. CT pulmonary angiogram: CONCLUSION: 1. Suboptimal opacification of the subsegmental pulmonary artery branches limits overall evaluation. 2. There is evidence for embolism to the subsegmental lower lobe pulmonary artery branches bilaterally. Many of the more central subsegmental emboli appear eccentric and may be at least subacute in chronicity. Overall thrombus burden is likely small and there is no CT evidence for pulmonary artery hypertension or right heart strain at this time. Patient's respiratory status has significantly improved on BiPAP and he is speaking full sentences. He is still requiring BiPAP, and remains tachycardic. He was started on Lovenox and will be admitted to the ICU here at [facility]. Case discussed with construction project engineer Dr. Rojo who will admit the patient to his service. Critical Care Narrative Aggregate critical care time was 60 minutes. Time to perform other separately billable procedures was not included in the critical care time. My time did not include minutes spent treating any other patients simultaneously or on activities that did not directly contribute to the patient's treatment. The services I provided to this patient were to treat and/or prevent clinically significant deterioration that could result in: , permanent disability, worsening clinical condition, respiratory failure I provided critical care services requiring my management, as noted below: Chart data review, documentation time, medication orders and management, vital sign assessments/reviewing monitor data, ordering and reviewing lab tests, ordering and interpreting/reviewing x-rays and diagnostic studies, care of the patient and discussion of the patient with the admitting physicians. Diagnosis Primary Impression: Pulmonary embolism Qualified Codes: I26.99 - Other pulmonary embolism without acute cor pulmonale Additional Impressions: Respiratory distress COPD exacerbation Sinus tachycardia Admitting Information Admitting Physician Requests: Nile Morales MD Dec 23, 2016 00:33
[2016-12-23] MEDS ORDERED: IOHEXOL 350 MG/ML 10 ML VIAL (for RAD DIAG) IVCONTRAST ONE (01:17)
--- NOTE | 2016-12-23 01:24 | RADRPT ---
EXAM DATE/TIME: 12/23/2016 00:59 [facility] COMPARISON: No previous studies available for comparison. INDICATIONS : Short of breath,evaluate for a pulmonary emoblism IV CONTRAST: 75 cc Omnipaque 350 (iohexol) IV RADIATION DOSE: 21.28 CTDIvol (mGy) MEDICAL HISTORY : Peripheral vascular disease. Chronic obstructive pulmonary disease. Cardiovascular diseasehypertensio n SURGICAL HISTORY : None. ENCOUNTER: Initial ACUITY: 1 day PAIN SCALE: 3/10 LOCATION: chest TECHNIQUE: Volumetric scanning of the chest was performed using a pulmonary embolism protocol MIP images were re constructed. Using automated exposure control and adjustment of the mA and/or kV according to patien t size, radiation dose was kept as low as reasonably achievable to obtain optimal diagnostic quality images. DICOM format image data is available electronically for review and comparison. Follow-up recommendations for detected pulmonary nodules are based at a minimum on nodule size and pa tient risk factors according to Fleischner Society Guidelines. FINDINGS: PULMONARY ARTERIES: There is suboptimal opacification of the subsegmental pulmonary artery branches. However, there are m ultiple filling defects noted in the lower lobes segmental branches are. Many of these filling defect s appear eccentric within the pulmonary artery branch. The main pulmonary artery is normal in caliber . LUNGS: There is no consolidation or pneumothorax . No concerning pulmonary nodule is visualized. PLEURAE: There is no pleural thickening or pleural effusion. MEDIASTINUM: Heart is grossly unremarkable without significant pericardial effusion or CT evidence for right heart strain. Moderate coronary artery calcifications are noted. No significant mediastinal adenopathy. MUSCULOSKELETAL: No focal abnormal lytic or blastic bony lesions. Multiple healed right-sided rib fractures. MISCELLANEOUS: The visualized upper abdominal organs demonstrate no acute abnormality. CONCLUSION: 1. Suboptimal opacification of the subsegmental pulmonary artery branches limits overall evaluation. 2. There is evidence for embolism to the subsegmental lower lobe pulmonary artery branches bilaterall y. Many of the more central subsegmental emboli appear eccentric and may be at least subacute in research support specialist nicity. Overall thrombus burden is likely small and there is no CT evidence for pulmonary artery hype rtension or right heart strain at this time. Que Nicole MD on December 23, 2016 at 1:15 Board Certified Radiologist. This report was verified electronically.
[2016-12-23 01:45] LABS: LACTIC ACID GHOST NOT REPORTABLE
[2016-12-23] MEDS ORDERED: ENOXAPARIN SODIUM 100 MG/ML SYRINGE SQ ONE (02:00)
[2016-12-23] MEDS ORDERED: BISACODYL 10 MG SUPP RECTAL PRN (04:00)
[2016-12-23] MEDS ORDERED: ZOLPIDEM TARTRATE 5 MG TAB PO PRN (04:00)
[2016-12-23] MEDS ORDERED: ACETAMINOPHEN 325 MG TAB PO PRN (04:00)
[2016-12-23] MEDS ORDERED: RESP: ALBUTEROL 2.5 MG/IPRATROPIUM 0.5 MG NEB (SCH) INH (04:00)
[2016-12-23] MEDS ORDERED: SENNOSIDES 8.6 MG TAB PO PRN (04:00)
[2016-12-23] MEDS ORDERED: LACTULOSE SYRUP 20 GM/30 ML CUP PO PRN (04:00)
[2016-12-23] MEDS ORDERED: MAGNESIUM HYDROXIDE SUSP 30 ML CUP PO PRN (04:00)
[2016-12-23] MEDS ORDERED: ONDANSETRON HCL 4 MG/2 ML VIAL IV PRN (04:00)
[2016-12-23] MEDS ORDERED: MISCELLANEOUS NURSING INFORMATION XX SCH (04:00)
[2016-12-23] MEDS: CHLORHEXIDINE GLUCONATE 2 % 1 PACK (2 CLOTHS) TOP SCH (04:00)
[2016-12-23] MEDS ORDERED: SODIUM CHLORIDE 0.9% FLUSH 10 ML FLUSH PRN (04:00)
[2016-12-23] MEDS ORDERED: CHLORHEXIDINE GLUCONATE 2 % 1 PACK (2 CLOTHS) TOP PRN (04:00)
[2016-12-23] MEDS ORDERED: ENOXAPARIN SODIUM 40 MG/0.4 ML SYRINGE SQ SCH (04:00)
[2016-12-23] MEDS ORDERED: MORPHINE SULFATE 4 MG/ML INJ IV PRN (04:00)
[2016-12-23] MEDS ORDERED: RESP: ALBUTEROL 2.5 MG/IPRATROPIUM 0.5 MG NEB (PRN) INH (04:00)
[2016-12-23 04:04] LABS: BLOOD, URINE SMALL (NEG); GLUCOSE,URINE NEG (NEG); KETONE, URINE TRACE mg/dL (NEG); NITRITE,URINE NEG (NEG); PH, URINE 6.5 (5.0-8.5)
[2016-12-23 04:24] LABS: URINE COLOR YELLOW (YELLW/STRAW)
[2016-12-23 04:26] LABS: COMMENT (UR) CULT NOT INDICATED; CULTURE IF INDICATED CULT NOT INDICATED; HYALINE CAST, URINE 0-2 /lpf (RARE); MUCUS URINE FEW /lpf (OCC); SQUAMOUS EPITHELIAL CELL URINE 0-5 /hpf (0-5)
[2016-12-23] MEDS: methylPREDNISolone SOD SUCC 40 MG/1 ML VIAL IV SCH ×3 (04:58→23:03)
[2016-12-23] MEDS: CEFEPIME INJ 2,000 MG in SODIUM CHLORIDE 0.9% INJ 100 ML IV SCH ×3 (04:59→23:02)
[2016-12-23] MEDS: ENOXAPARIN SODIUM 80 MG/0.8 ML SYRINGE SQ SCH ×2 (04:59→17:21)
--- NOTE | 2016-12-23 07:14 | HHI.HP ---
HPI Service Critical Care Medicine Primary Care Physician Ryley Rodgers MD Admission Diagnosis pulmonary embolism, COPD exacerbation, sinus tachycardia Diagnosis: Travel History International Travel<30 Days: No Contact w/Intl Traveler <30 Da: No Traveled to Known Affected Are: No History of Present Illness This is a 71-year-old male with history of COPD brought into ED for evaluation of shortness of breath and hypoxia. Patient has had worsening shortness of breath over the last 2 days. Upon arrival of EMS, to his home , his O2 saturation was noted to be in the 80s and he was in severe respiratory distress and diaphoretic. He was started on CPAP and O2 saturation improved to 98%. Upon arrival to the emergency department the patient was noted to be insevere respiratory distress. He is speaking a few words at a time. He has been having a cough productive of greenish sputum for the last couple of days. No hemoptysis. He denies history of DVT or PE. Patient was immediately switched to BiPAP upon arrival to the emergency department. Laboratory and imaging studies were performed in the ED, the patient was noted to have an elevated lactate level of 3.0, CT pulmonary angiogram revealed bilateral pulmonary embolism with impression of thrombus burden being small without pulmonary hypertension at that time or right heart strain. The patient received Lovenox subcutaneous, antibiotics and placed on steroids. The patient was then transferred to ICU, critical care was consulted for management. Upon my arrival to the ICU the patient was noted to have a heart rate of 112, BP 156/ 89, on BiPAP 15/5 FiO2 40% with O2 saturation of 99%. The patient was transitioned to nasal cannula. PFSH Past Medical History Hx Anticoagulant Therapy: Yes Arthritis: Yes Asthma: No Autoimmune Disease: No Blood Disorders: No Anxiety: No Depression: No Heart Rhythm Problems: No Cancer: Yes (SKIN CANCER REMOVAL) Cardiovascular Problems: Yes (STENTS) High Cholesterol: Yes Chemotherapy: No Chest Pain: No Congestive Heart Failure: No COPD: Yes Cerebrovascular Accident: No Diabetes: No Diminished Hearing: No Endocrine: No Gastrointestinal Disorders: Yes GERD: Yes Glaucoma: No Genitourinary: No Headaches: No Hepatitis: No Hiatal Hernia: Yes Hypertension: Yes Immune Disorder: No Implanted Vascular Access Dvce: Yes Kidney Stones: No Medical other: Yes (C-DIFF) Musculoskeletal: Yes Neurologic: Yes Psychiatric: No Reproductive: No Respiratory: Yes Integumentary: No Immunizations Current: Yes Migraines: No Myocardial Infarction: No Radiation Therapy: No Renal Failure: No Seizures: No Sickle Cell Disease: No Sleep Apnea: No Thyroid Disease: Yes (HYPERTHYROID) Ulcer: No Past Surgical History Abdominal Surgery: Yes (HERNIA REPAIR WITH MESH) AICD: No Appendectomy: No Arteriovenous Shunt: No Body Medical Devices: Stents LE's, BL hips Cardiac Surgery: Yes Cholecystectomy: No Ear Surgery: No Endocrine Surgery: No Eye Surgery: No Genitourinary Surgery: No Gynecologic Surgery: No Insulin Pump: No Joint Replacement: Yes (BILATERAL HIPS) Neurologic Surgery: No Oral Surgery: No Pacemaker: No Thoracic Surgery: Yes Other Surgery: Yes (NODULE REMOVED FROM VOCAL CORD) Social History Alcohol Use: Yes (A COUPLE TIMES A WEEK) Tobacco Use: Yes (1 PPD) Substance Use: No Allergies-Medications Allergies-Medications (Allergen,Severity, Reaction): Coded Allergies: No Known Allergies (Verified , 06/27/16) Reported Meds & Prescriptions Reported Meds & Active Scripts Active Metoprolol Tartrate 25 Mg Tab 25 Mg PO Q12HR Lisinopril 10 Mg Tab 10 Mg PO Q12HR Thera/Beta-Carotene (Multiple Vitamin) 1 Tab Tab 1 Tab PO DAILY Plavix (Clopidogrel Bisulfate) 75 Mg Tab 75 Mg PO DAILY Reported [Oxygen] 2 Liter INH DAILY Ventolin Hfa 18 GM Inh (Albuterol Sulfate) 90 Mcg/Act Aer 2 Puff INH Q4-6H PRN Breo Ellipta Inh (Fluticasone/Vilanterol) 100-25 Mcg/Act Inh 1 Puff INH DAILY Use daily at the same time. Albuterol Neb (Albuterol Sulfate) 2.5 Mg/3 Ml Neb 2.5 Mg NEB Q4HR NEB While awake Lorazepam 1 Mg Tab 1 Mg PO BID Atorvastatin (Atorvastatin Calcium) 20 Mg Tab 20 Mg PO HS Aspir-81 (Aspirin) 81 Mg Tabdr 81 Mg PO Review of Systems Respiratory: COMPLAINS OF: Cough, Sputum production Past Family Social History Allergies: Coded Allergies: No Known Allergies (Verified , 01/10/17) Family History Patient is 23 years, no children. Social History Patient reports smoking history 1PPD 55 years, EtOH use reports 2 drinks per day were previous admission in April 2016 1 quart of rum/day, no history of illicit drug use Physical Exam Vital Signs Vital Signs Date Time Temp Pulse Resp B/P (MAP) Pulse Ox O2 Delivery O2 Flow Rate FiO2 12/23/16 07:00 97 Nasal Cannula 2.00 12/23/16 06:50 98 40 12/23/16 06:01 110 11 154/86 (108) 99 12/23/16 06:00 110 12/23/16 05:01 98.8 120 14 151/87 (108) 100 12/23/16 05:00 100 40 12/23/16 04:40 12/23/16 04:35 99.9 100 20 162/76 (104) 99 40 12/23/16 04:00 108 20 159/76 (103) 99 BiPAP 40 12/23/16 03:21 100.3 114 20 147/91 (109) 100 12/23/16 03:00 120 20 164/95 (118) 99 BiPAP 40 12/23/16 02:30 124 20 125/90 (102) 99 BiPAP 40 12/23/16 02:00 120 24 100 BiPAP 40 12/23/16 02:00 100.5 130 20 146/82 (103) 99 40 12/23/16 01:23 100.5 128 20 135/81 (99) 99 BiPAP 40 12/23/16 01:19 100 40 12/23/16 01:11 124 32 143/87 (105) 99 12/23/16 00:50 20 12/23/16 00:34 100.5 128 24 158/95 (116) 100 BiPAP 40 12/23/16 00:20 100 40 12/23/16 00:17 131 24 100 BiPAP 60 12/23/16 00:05 100 BiPAP 60 12/23/16 00:05 101.7 131 28 143/87 (105) 100 60 12/22/16 23:49 134 32 184/116 (138) 99 BiPAP 60 12/22/16 23:20 100 60 12/22/16 23:20 101.9 138 44 203/115 (144) 92 Physical Exam GENERAL: This is a well-developed well-nourished elderly male currently on BiPAP , with no accessory muscle use SKIN: Warm and dry. HEAD: Atraumatic. Normocephalic. EYES: Pupils equal and round. No scleral icterus. No injection or drainage. ENT: No nasal bleeding or discharge. Mucous membranes pink and moist. NECK: Trachea midline. No JVD. CARDIOVASCULAR: Tachycardic rate, regular rhythm. RESPIRATORY: No accessory muscle use. Clear to auscultation. Diminished breath sounds bilaterally. Equal chest excursion. GASTROINTESTINAL: Abdomen soft, non-tender, nondistended. No guarding. MUSCULOSKELETAL: Extremities without clubbing, cyanosis, or edema. No obvious deformities. NEUROLOGICAL: Awake and alert. RASS 0. No gross focal/sensory deficits. Follows commands in all 4 extremities. Laboratory Laboratory Tests Test 12/22/16 23:20 12/23/16 00:05 12/23/16 02:00 12/23/16 03:50 White Blood Count 9.2 Red Blood Count 4.44 Hemoglobin 14.7 Hematocrit 44.7 Mean Corpuscular Volume 100.8 Mean Corpuscular Hemoglobin 33.1 Mean Corpuscular Hemoglobin Concent 32.8 Red Cell Distribution Width 14.7 Platelet Count 204 Mean Platelet Volume 7.2 Neutrophils (%) (Auto) 65.0 Lymphocytes (%) (Auto) 24.4 Monocytes (%) (Auto) 10.0 Eosinophils (%) (Auto) 0.4 Basophils (%) (Auto) 0.2 Neutrophils # (Auto) 6.1 Lymphocytes # (Auto) 2.2 Monocytes # (Auto) 0.9 Eosinophils # (Auto) 0.0 Basophils # (Auto) 0.0 CBC Comment DIFF FINAL Differential Comment Blood Urea Nitrogen 9 Creatinine 0.89 Random Glucose 149 Total Protein 7.7 Albumin 3.7 Calcium Level 8.6 Alkaline Phosphatase 120 Aspartate Amino Transf (AST/SGOT) 65 Alanine Aminotransferase (ALT/SGPT) 35 Total Bilirubin 0.8 Sodium Level 136 Potassium Level 3.8 Chloride Level 102 Carbon Dioxide Level 24.2 Anion Gap 10 Estimat Glomerular Filtration Rate 85 Lactic Acid Level 3.0 1.4 Total Creatine Kinase 246 Creatine Kinase MB 6.6 Troponin I 0.03 Blood Gas Puncture Site LT RADIAL Blood Gas Patient Temperature 98.6 Blood Gas HCO3 25 Blood Gas Base Excess 0.3 Blood Gas Oxygen Saturation 97 Arterial Blood pH 7.39 Arterial Blood Partial Pressure CO2 42 Arterial Blood Partial Pressure O2 240 Arterial Blood Oxygen Content 18.4 Arterial Blood Carboxyhemoglobin 1.7 Arterial Blood Methemoglobin 1.5 Blood Gas Hemoglobin 13.2 Oxygen Delivery Device BIPAP Blood Gas Inspired Oxygen 60 Urine Color YELLOW Urine Turbidity CLEAR Urine pH 6.5 Urine Specific [place] GREATER THAN 1.035 Urine Protein 100 Urine Glucose (UA) NEG Urine Ketones TRACE Urine Occult Blood SMALL Urine Nitrite NEG Urine Bilirubin NEG Urine Leukocyte Esterase NEG Urine RBC 4-9 Urine Squamous Epithelial Cells 0-5 Urine Hyaline Casts 0-2 Urine Mucus FEW Microscopic Urinalysis Comment CULT NOT INDICATED Test 12/23/16 04:45 12/23/16 04:47 Troponin I 0.05 Date/Time Source Procedure Growth Status 12/22/16 23:35 Blood Peripheral Aerobic Blood Culture Pending Received 12/22/16 23:35 Blood Peripheral Anaerobic Blood Culture Pending Received Result Diagram: 12/22/16 2320 12/22/[address] Angiography 12/23/16 0030 Signed Impressions: Service Date/Time: Friday, December 23, 2016 00:59 - CONCLUSION: 1. Suboptimal opacification of the subsegmental pulmonary artery branches limits overall evaluation. 2. There is evidence for embolism to the subsegmental lower lobe pulmonary artery branches bilaterally. Many of the more central subsegmental emboli appear eccentric and may be at least subacute in chronicity. Overall thrombus burden is likely small and there is no CT evidence for pulmonary artery hypertension or right heart strain at this time. Que Nicole MD Chest X-Ray 12/22/161 Signed Impressions: Service Date/Time: Thursday, December 22, 2016 23:33 - CONCLUSION: 1. Minimal right basilar airspace disease, likely atelectasis. Que Nicole MD Septic Shock Reassessment Skin: Warm Peripheral Pulses: Bounding Right Radial Bounding Left Radial Bounding Right Dorsalis Pedis Bounding Left Dorsalis Pedis Capillary Refill: Brisk Caprini VTE Risk Assessment Caprini VTE Risk Assessment: Mod/High Risk (score >= 2) Caprini Risk Assessment Model Point Value = 1 Point Value = 2 Point Value = 3 Point Value = 5 Age 41-60 Minor surgery BMI > 25 kg/m2 Swollen legs Varicose veins or History of unexplained or recurrent spontaneous Oral contraceptives or hormone replacement Sepsis (< 1 month) Serious lung disease, including pneumonia (< 1 month) Abnormal pulmonary function Acute myocardial infarction Congestive heart failure (< 1 month) History of inflammatory bowel disease Medical patient at bed rest Age 61-74 Arthroscopic surgery Major open surgery (> 45 min) Laparoscopic surgery (> 45 min) Malignancy Confined to bed (> 72 hours) Immobilizing plaster cast Central venous access Age >= 75 History of VTE Family history of VTE Factor V Leiden Prothrombin [id number] Lupus anticoagulant Anticardiolipin antibodies Elevated serum homocysteine Heparin-induced thrombocytopenia Other congenital or acquired thrombophilia Stroke (< 1 month) Elective arthroplasty Hip, pelvis, or leg fracture Acute spinal cord injury (< 1 month) Prophylaxis Regimen Total Risk Factor Score Risk Level Prophylaxis Regimen 0-1 Low Early ambulation 2 Moderate Order ONE of the following: *Sequential Compression Device (SCD) *Heparin 5000 units SQ BID 3-4 Higher Order ONE of the following medications: *Heparin 5000 units SQ TID *Enoxaparin/Lovenox 40 mg SQ daily (WT < 150 kg, CrCl > 30 mL/min) *Enoxaparin/Lovenox 30 mg SQ daily (WT < 150 kg, CrCl > 10-29 mL/min) *Enoxaparin/Lovenox 30 mg SQ BID (WT < 150 kg, CrCl > 30 mL/min) AND/OR *Sequential Compression Device (SCD) 5 or more Highest Order ONE of the following medications: *Heparin 5000 units SQ TID (Preferred with Epidurals) *Enoxaparin/Lovenox 40 mg SQ daily (WT < 150 kg, CrCl > 30 mL/min) *Enoxaparin/Lovenox 30 mg SQ daily (WT < 150 kg, CrCl > 10-29 mL/min) *Enoxaparin/Lovenox 30 mg SQ BID (WT < 150 kg, CrCl > 30 mL/min) AND *Sequential Compression Device (SCD) Assessment and Plan Assessment and Plan Plan by systems: Neurologic: H/O Alcohol Withdrawal Monitor for signs of alcohol withdrawal Seizure precautions Ativan 1 mg PO BID Ambien 5 mg daily at bedtime by mouth when necessary for insomnia-maintain sleep hygiene Respiratory: Bilateral pulmonary embolus COPD exacerbation Tobacco abuse Respiratory insufficiency O2 dependency Wean FiO2 to maintain O2 saturation greater than 92% currently on BiPAP 5/15 FiO2 40% wean to nasal cannula Continue bronchodilators every 4 hours scheduled every 2 hours when necessary Methylprednisolone 40 mg every 8 hours 12/23 CXR -Minimal right basilar airspace disease likely atelectasis 12/23-pulmonary CTA-embolism to subsegmental lower lobes pulmonary artery branches bilateral. Many of the more central subsegmental emboli appear eccentric and may be at least subacute in chronicity. Overall thrombus burden is small. No evidence of pulmonary hypertension or right heart strain at this time Counseled patient on smoking cessation Nicotine patch medium dose 7 days Lovenox 70 mg BID Pulmonary consulted Cardiovascular: Hypertension Peripheral vascular disease Cardiovascular disease Continue atorvastatin and ASA Obtain 12-lead EKG Obtain ECHO-evaluate function and right heart strain, clot burden Continue Plavix Troponin 0.03->0.05 follow trend Continue antihypertensive medications metoprolol 25 mg BID Renal: Maintain Esqueda -- Strict I/Os FEN/GI: Heart healthy diet Thiamine and folate Pepcid BID Zofran for nausea Heme/ID: Community-acquired pneumonia Bilateral pulmonary embolism Obtain Legionella, pneumococcal influenza A and B antigen Obtain sputum culture Azithromycin 500 mg q 24 hr Cefepime2 GM q 8 hr Obtain ultrasound bilateral upper and lower extremities Obtain prothrombotic studies Endocrine: Glucose monitoring per ICU protocol -- SSI Prophylaxis: GI Prophylaxis Pepcid twice a day DVT Prophylaxis -- SCDs Patient on Lovenox 70 mg BID Lines: Peripheral IVs 3. Central line if indicated. Dispo: This patient remains critically ill with one or more organ systems which are or may become a threat to life. I have spent in excess of 60 minutes discontinuously in the care and management of this patient. This time is exclusive of procedures, and includes, but is not limited to, evaluation of the patient, review of the medical record, discussions with family, consultants, nursing staff, or respiratory therapy, and documentation in the medical record. Code Status Full Discussed Condition With Patient, ADVERTISING ASSISTANT at bedside Mayi Taylor MD Dec 23, 2016 07:14
[2016-12-23] MEDS ORDERED: POTASSIUM CHLOR 40 MEQ PREMIX 100 ML IV PRN ×2 (07:45)
[2016-12-23] MEDS ORDERED: POTASSIUM PHOSPHATE MONOBASIC 500 MG TAB PO PRN (07:45)
[2016-12-23] MEDS ORDERED: DEXTROSE 50% IN WATER 50 ML VIAL(D50) IV PRN (07:45)
[2016-12-23] MEDS ORDERED: MAGNESIUM OXIDE 400 MG TAB PO PRN (07:45)
[2016-12-23] MEDS ORDERED: MAGNESIUM SULFATE INJ 4 GM in SODIUM CHLORIDE 0.9% INJ 92 ML IV PRN (07:45)
[2016-12-23] MEDS ORDERED: SODIUM PHOSPHATE INJ 30 MMOL in SODIUM CHLOR 0.9% 250 ML INJ 240 ML IV PRN (07:45)
[2016-12-23] MEDS ORDERED: POTASSIUM CHLOR 20 MEQ PREMIX 100 ML IV PRN ×2 (07:45)
[2016-12-23] MEDS ORDERED: MAGNESIUM SULFATE INJ 2 GM in SODIUM CHLORIDE 0.9% INJ 96 ML IV PRN (07:45)
[2016-12-23] MEDS ORDERED: POTASSIUM PHOSPHATE MONOBASIC 500 MG TAB PO/TUBE PRN (07:45)
[2016-12-23] MEDS ORDERED: GLUCAGON 1 MG/ML VIAL OTHER PRN (07:45)
[2016-12-23] MEDS ORDERED: POTASSIUM CHLORIDE 25 MEQ EFFERVESCENT TAB PO PRN (07:45)
[2016-12-23] MEDS ORDERED: POTASSIUM PHOSPHATE INJ 30 MMOL in SODIUM CHLOR 0.9% 250 ML INJ 250 ML IV PRN (07:45)
[2016-12-23] MEDS: NICOTINE 14 MG/24 HR PATCH T-DERMAL SCH (08:37)
[2016-12-23] MEDS: METOPROLOL TARTRATE 25 MG TAB PO SCH ×2 (08:37→20:49)
[2016-12-23] MEDS: FOLIC ACID 1 MG TAB PO SCH (08:37)
[2016-12-23] MEDS: ASPIRIN EC 81 MG TABEC PO SCH (08:37)
[2016-12-23] MEDS: MULTIVITAMIN TAB PO SCH (08:37)
[2016-12-23] MEDS: REMOVE OLD PATCH T-DERMAL SCH (08:37)
[2016-12-23] MEDS: CLOPIDOGREL 75 MG TAB PO SCH (08:37)
[2016-12-23] MEDS: SODIUM CHLOR 0.9% 1000 ML INJ 1,000 ML IV SCH (08:37)
[2016-12-23] MEDS: DOCUSATE SODIUM 50 MG/SENNA 8.6 MG TAB PO SCH ×2 (08:38→20:49)
[2016-12-23] MEDS: FAMOTIDINE 20 MG/2 ML VIAL IV PUSH SCH ×2 (08:38→20:50)
[2016-12-23] MEDS: LORazepam 1 MG TAB PO SCH ×2 (08:38→20:49)
[2016-12-23] MEDS: SODIUM CHLORIDE 0.9% FLUSH 10 ML FLUSH SCH ×2 (08:39→20:50)
[2016-12-23] MEDS: RESP: ALBUTEROL 2.5 MG/IPRATROPIUM 0.5 MG NEB (SCH) NEB ×3 (08:45→19:38)
[2016-12-23] MEDS: INSULIN ASPART SUPPLEMENTAL SCALE SQ SCH ×3 (11:00→20:53)
--- NOTE | 2016-12-23 11:02 | RADRPT ---
EXAM DATE/TIME: 12/23/2016 09:28 [facility] COMPARISON: No previous studies available for comparison. INDICATIONS : Bilateral leg swelling. MEDICAL HISTORY : Hypercholesterolemia. Hypertension. Gastroesophageal reflux disease. Hyperthyroid. Head trauma. Numbn ess. Peripheral vascular disease. COPD. Dyspnea. Hiatal hernia. Arthritis. Skin cancer. Clostridium difficle. SURGICAL HISTORY : Cardiac stents. Hernia repair with mesh. Bilateral hip replacement. Skin cancer removal. Nodule remov ed from vocal cords. ENCOUNTER: Initial ACUITY: 1 day PAIN SCORE: 2/10 LOCATION: Bilateral legs. TECHNIQUE: Venous ultrasound of the left and right leg was performed from the inguinal ligament to the proximal calf. Real-time, color Doppler and spectral tracing, compression and augmentation techniques were us ed. FINDINGS: RIGHT LEG: There is normal compressibility of the deep venous system from the inguinal region to the proximal ca lf. No echogenic clot is seen in the lumen of the common femoral, femoral, popliteal, and posterior tibial veins. There is a normal response of the venous system to proximal and distal augmentation an d respiration. LEFT LEG: There is normal compressibility of the deep venous system from the inguinal region to the proximal ca lf. No echogenic clot is seen in the lumen of the common femoral, femoral, popliteal, and posterior tibial veins. There is a normal response of the venous system to proximal and distal augmentation an d respiration. CONCLUSION: The study is negative for deep venous thrombosis bilateral lower extremity. Vasquez Chicas MD on December 23, 2016 at 11:00 Board Certified Radiologist. This report was verified electronically.
[2016-12-23] MEDS: RESP: ALBUTEROL 2.5 MG/IPRATROPIUM 0.5 MG NEB (PRN) NEB ×2 (12:09→17:38)
[2016-12-23] MEDS: LISINOPRIL 10 MG TAB PO SCH ×2 (12:13→20:49)
[2016-12-23] MEDS: FLUTICASONE 100 MCG/VILANTEROL 25 MCG INHALER INH SCH (12:13)
[2016-12-23] MEDS: LORazepam 2 MG/ML VIAL IV PUSH PRN ×2 (12:14→16:22)
--- NOTE | 2016-12-23 13:00 | RADRPT ---
EXAM DATE/TIME: 12/23/2016 10:30 [facility] COMPARISON: No previous studies available for comparison. INDICATIONS : Bilateral arm swelling. MEDICAL HISTORY : Hypercholesterolemia. Hypertension. Gastroesophageal reflux disease. Hyperthyroid. Head trauma. Numbn ess. Peripheral vascular disease. COPD. Dyspnea. Hiatal hernia. Arthritis. Skin cancer. Clostridium difficle. SURGICAL HISTORY : Cardiac stents. Hernia repair with mesh. Bilateral hip replacement. Skin cancer removal. Nodule remov ed from vocal cords. ENCOUNTER: Initial ACUITY: 1 day PAIN SCORE: 2/10 LOCATION: Bilateral arms. FINDINGS: RIGHT UPPER EXTREMITY: There is spontaneous flow documented in the brachial, basilic, cephalic, axillary, and subclavian vei ns. The vessels are compressible and augmentation response is documented. No filling defects are se en. The flow is phasic with respiration. Direction of flow in the jugular vein is caudal. LEFT UPPER EXTREMITY: There is spontaneous flow documented in the brachial, basilic, cephalic, axillary, and subclavian vei ns. The vessels are compressible and augmentation response is documented. No filling defects are se en. The flow is phasic with respiration. Direction of flow in the jugular vein is caudal. CONCLUSION: No evidence of deep venous thrombosis within the upper extremities. James Aceves MD on December 23, 2016 at 12:58 Board Certified Radiologist. This report was verified electronically.
--- NOTE | 2016-12-23 14:27 | EKG ---
Date Performed: 12/22/2016 Time Performed: 23:39:28 PTAGE: 71 years EKG: Sinus tachycardia Slight baseline artifact Slight nonspecific ST depression, which is new, however, from the old tracing. Clinical correlation for ischemia needed. PREVIOUS TRACING : 06/21/2016 07.56 DOCTOR: Esteban Castañeda Interpretating Date/Time 12/23/2016 14:26:34
--- NOTE | 2016-12-23 15:49 | ECHRPT ---
Indication: Shortness of breath CONCLUSIONS No wall motion abnormalites Normal LV systolic function EF 60% No significant valvulopathies No pericardial effusion BP: / HR: Rhythm: Sinus MEASUREMENTS (Male / Female) Normal Values Technical Quality:Technically difficult study 2D ECHO LV Diastolic Diameter PLAX 5.7 cm 4.2 - 5.9 / 3.9 - 5.3 cm LV Systolic Diameter PLAX 4.4 cm IVS Diastolic Thickness 1.2 cm 0.6 - 1.0 / 0.6 - 0.9 cm LVPW Diastolic Thickness 1.2 cm 0.6 - 1.0 / 0.6 - 0.9 cm LV Relative Wall Thickness 0.4 LVOT Diameter 2.4 cm M-MODE Aortic Root Diameter MM 2.6 cm LA Systolic Diameter MM 3.4 cm LA Ao Ratio MM 1.3 AV Cusp Separation MM 2.1 cm DOPPLER AV Peak Velocity 88.2 cm/s AV Peak Gradient 3.1 mmHg LVOT Peak Velocity 52.8 cm/s LVOT Peak Gradient 1.1 mmHg AV Area Cont Eq pk 2.7 cm Mitral E Point Velocity 50.8 cm/s Mitral A Point Velocity 42.4 cm/s Mitral E to A Ratio 1.2 PV Peak Velocity 76.0 cm/s PV Peak Gradient 2.3 mmHg FINDINGS LEFT VENTRICLE Normal left ventricular size and wall thickness. The left ventricular systolic function is normal wi th an estimated ejection fraction in the range of 60-65%. Left ventricular diastolic function parameters a re normal. RIGHT VENTRICLE Normal right ventricular size and systolic function. LEFT ATRIUM The left atrial size is normal. RIGHT ATRIUM The right atrial size is normal. ATRIAL SEPTUM Normal atrial septal thickness without atrial level shunting by limited color doppler interrogation. AORTA The aortic root and proximal ascending aorta are normal in size on limited imaging. MITRAL VALVE Structurally normal mitral valve. No mitral valve stenosis or regurgitation. AORTIC VALVE Trileaflet aortic valve. No aortic valve stenosis or regurgitation. TRICUSPID VALVE Structurally normal tricuspid valve. No tricuspid valve stenosis or regurgitation. PULMONARY VALVE The pulmonary valve is not well visualized. VESSELS The inferior vena cava is normal in size. PERICARDIUM No pericardial effusion. Martell hGotra MD (Electronically Signed) Final Date:23 December 2016 15:48
--- NOTE | 2016-12-23 17:11 | MB ---
cc: CALEB ELLIS M.D. DATE OF CONSULTATION 12/23/2016 REASON FOR CONSULTATION Respiratory failure, pulmonary embolism. HISTORY OF PRESENT ILLNESS The patient is a 71-year-old male with severe COPD, chronic respiratory failure on oxygen therapy who went to the emergency room with increasing shortness of breath. He has had increasing cough for the last week or so with yellowish greenish mucoid sputum without hemoptysis. The patient had a CT angiogram with evidence of pulmonary emboli, at least in part, chronic without evidence of pulmonary hypertension. The patient is a heavy smoker, heavy drinker smoking up until the time of admission. PAST MEDICAL HISTORY Is that of: 1. COPD. 2. Chronic respiratory failure on oxygen therapy. 3. History of tobacco abuse as mentioned above. 4. Hypertension. 5. Peripheral vascular disease. 6. Hyperlipidemia. SOCIAL HISTORY Smoked almost the entire adult life, continues to smoke up until this time. Drinks alcohol on a regular basis, drinks excessively per his . Does not use drugs. No TB or industrial exposure. FAMILY HISTORY Noncontributory. REVIEW OF SYSTEMS 12-point review of systems as per HPI and past history otherwise negative. ALLERGIES None known to medication. PHYSICAL EXAMINATION GENERAL: The patient is alert. He is on O2 via mask. VITAL SIGNS: Temperature 98, pulse 100, respiratory rate 20, blood pressure 170/90. HEENT: Unremarkable. Eyes without icterus. NECK: Without adenopathy or thyroid enlargement. CHEST: A few scattered rhonchi bilaterally. CARDIAC: Point of maximal impulse distant. S1, S2 audible. No murmur, no rub. ABDOMEN: Lax. Bowel sounds audible. EXTREMITIES: No clubbing, cyanosis or edema. SKIN: Normal. No lymphadenopathy. LABORATORY DATA Arterial blood gas on 6% inspired oxygen fraction on BiPap pH 7.39, pCO2 42, pO2 240. White count 9.2, hemoglobin 14, hematocrit 44. INR 1.0. IMAGING CT angiogram with evidence of pulmonary emboli in part chronic without pulmonary hypertension. IMPRESSION 1. Pulmonary embolism. 2. COPD. 3. Chronic respiratory failure on oxygen therapy. 4. Tobacco abuse. 5. Excessive alcohol intake. PLAN The patient will be maintained on oxygen therapy as needed. Bronchodilator therapy as well as steroids given. Anticoagulant therapy would be appropriate. This will be on shelter basis given the chronicity suggested by CT angiography. The patient may well have underlying obstructive sleep apnea and does snore intermittently, although he is not sure if he stops breathing or not. I will follow his care along with you and depending on progress proceed further. I do thank you for asking me to partake in Mr. Calderon's care. Caleb Ellis MD WWW/IRINA /3:54 PM /4:46 PM
[2016-12-23 17:21] LABS: POTASSIUM 3.6 MEQ/L (3.5-5.1)
[2016-12-23 17:24] LABS: BICARBONATE 24.8 MEQ/L (21.0-32.0)
[2016-12-23 17:43] LABS: BLOOD GAS BASE EXCESS 1.6 mmol/L (-2-2); BLOOD GAS CARBOXYHEMOGLOBIN 1.3 % (0-4); BLOOD GAS HCO3 25 mmol/L (22-26); BLOOD GAS METHEMOGLOBIN 1.4 % (0-2); BLOOD GAS O2 HGB SATURATION 96 % (90-100); BLOOD GAS OXYGEN CONTENT 16.9 Vol % (12.0-20.0); BLOOD GAS PO2 98 mmHG (61-120); BLOOD GAS TOTAL HGB 12.5 G/DL (12.0-16.0); TEMP CORR TO 98.6
[2016-12-23 17:44] LABS: BLOOD GAS PCO2 38 mmHG (38-42); CRITICAL VALUE NO; DRAW SITE LT RADIAL; LITER FLOW 4 L/M; NUMBER OF ARTERIAL PUNCTURES 1; OXYGEN DEVICE NASAL CANNULA; STAT NO; ULNAR PULSE PRESENT
[2016-12-23] MEDS: ATORVASTATIN 20 MG TAB PO SCH (20:49)
[2016-12-24] VITALS (37 sets, daily range): BP systolic 122–173; BP diastolic 67–102; PULSE 78–126; RESP 14–46; TEMP 97.5–99.3; O2SAT 94–100
[2016-12-24] MEDS: AZITHROMYCIN INJ 500 MG in SODIUM CHLOR 0.9% 250 ML INJ 250 ML IV SCH (00:46)
[2016-12-24] MEDS: CHLORHEXIDINE GLUCONATE 2 % 1 PACK (2 CLOTHS) TOP SCH (04:00)
[2016-12-24 04:39] LABS: AUTOMATED NEUTROPHIL # 7.2 TH/MM3 (1.8-7.7); BASOPHIL % 0.1 % (0.0-2.0); HEMATOCRIT 36.4 % (39.0-51.0); HEMO FLAGS DIFF FINAL; LYMPH % 6.9 % (9.0-44.0); LYMPHOCYTE # 0.6 TH/MM3 (1.0-4.8); MEAN CORPUSCULAR HEMOGLOBIN 32.6 PG (27.0-34.0); MEAN CORPUSCULAR HGB CONC 32.9 % (32.0-36.0); MONO % 5.7 % (0.0-8.0); NEUT % 87.3 % (16.0-70.0); PLATELET COUNT 158 TH/MM3 (150-450); RED BLOOD COUNT 3.68 MIL/MM3 (4.50-5.90); RED CELL DISTRIBUTION WIDTH 14.3 % (11.6-17.2); WHITE BLOOD COUNT 8.3 TH/MM3 (4.0-11.0)
[2016-12-24 04:51] LABS: CHLORIDE 105 MEQ/L (98-107); POTASSIUM 3.9 MEQ/L (3.5-5.1); SODIUM (NA) 139 MEQ/L (136-145)
[2016-12-24 05:00] LABS: ALT (GPT) 24 U/L (12-78); ANION GAP 9 MEQ/L (5-15); AST (GOT) 29 U/L (15-37); BICARBONATE 25.4 MEQ/L (21.0-32.0); BLOOD UREA NITROGEN 13 MG/DL (7-18); GLOMERULAR FILTRATION RATE 100 ML/MIN (>89); MAGNESIUM 1.9 MG/DL (1.5-2.5); TOTAL BILIRUBIN ADULT 0.6 MG/DL (0.2-1.0)
[2016-12-24 05:02] LABS: ALKALINE PHOSPHATASE 89 U/L (45-117)
[2016-12-24] MEDS: RESP: ALBUTEROL 2.5 MG/IPRATROPIUM 0.5 MG NEB (PRN) NEB (05:40)
[2016-12-24] MEDS: CEFEPIME INJ 2,000 MG in SODIUM CHLORIDE 0.9% INJ 100 ML IV SCH ×3 (05:56→22:06)
[2016-12-24] MEDS: methylPREDNISolone SOD SUCC 40 MG/1 ML VIAL IV SCH ×3 (05:56→22:06)
[2016-12-24] MEDS: ENOXAPARIN SODIUM 80 MG/0.8 ML SYRINGE SQ SCH ×2 (05:57→18:00)
--- NOTE | 2016-12-24 05:57 | RADRPT ---
EXAM DATE/TIME: 12/24/2016 05:22 [facility] COMPARISON: CT PULMONARY ANGIOGRAM, December 23, 2016, 0:59. CHEST SINGLE AP, December 22, 2016, 23:33. INDICATIONS : Shortness of breath MEDICAL HISTORY : Hypertension. SURGICAL HISTORY : None. ENCOUNTER: Subsequent ACUITY: 3 days PAIN SCORE: 0/10 LOCATION: Bilateral chest FINDINGS: Lungs are slightly hypoaerated with minimal bibasilar airspace disease. Cardiomediastinal contours ar e within normal limits. Remainder of the exam is unchanged. CONCLUSION: 1. Minimal bibasilar atelectasis. 2. No significant interval change. Que Nicole MD on December 24, 2016 at 5:53 Board Certified Radiologist. This report was verified electronically.
[2016-12-24] MEDS: INSULIN ASPART SUPPLEMENTAL SCALE SQ SCH ×4 (05:59→20:06)
[2016-12-24] MEDS: SODIUM CHLOR 0.9% 1000 ML INJ 1,000 ML IV SCH (06:35)
[2016-12-24] MEDS: RESP: ALBUTEROL 2.5 MG/IPRATROPIUM 0.5 MG NEB (SCH) NEB ×3 (07:44→19:23)
[2016-12-24] MEDS: ASPIRIN EC 81 MG TABEC PO SCH (08:59)
[2016-12-24] MEDS: LISINOPRIL 10 MG TAB PO SCH ×2 (08:59→22:05)
[2016-12-24] MEDS: FLUTICASONE 100 MCG/VILANTEROL 25 MCG INHALER INH SCH (08:59)
[2016-12-24] MEDS: CLOPIDOGREL 75 MG TAB PO SCH (08:59)
[2016-12-24] MEDS: MULTIVITAMIN TAB PO SCH (08:59)
[2016-12-24] MEDS: FOLIC ACID 1 MG TAB PO SCH (09:00)
[2016-12-24] MEDS: DOCUSATE SODIUM 50 MG/SENNA 8.6 MG TAB PO SCH ×2 (09:00→22:05)
[2016-12-24] MEDS: SODIUM CHLORIDE 0.9% FLUSH 10 ML FLUSH SCH ×2 (09:00→21:00)
[2016-12-24] MEDS: REMOVE OLD PATCH T-DERMAL SCH (09:00)
[2016-12-24] MEDS: LORazepam 1 MG TAB PO SCH ×2 (09:00→22:05)
[2016-12-24] MEDS: NICOTINE 14 MG/24 HR PATCH T-DERMAL SCH (09:00)
[2016-12-24] MEDS: FAMOTIDINE 20 MG/2 ML VIAL IV PUSH SCH ×2 (09:00→22:05)
[2016-12-24] MEDS: METOPROLOL TARTRATE 25 MG TAB PO SCH ×2 (09:02→22:05)
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
--- NOTE | 2016-12-24 13:03 | EKG ---
Date Performed: 12/23/2016 Time Performed: 09:19:01 PTAGE: 71 years EKG: SINUS TACHYCARDIA WITH SHORT FL INTERVAL ABNORMAL RHYTHM ECG PREVIOUS TRACING : 12/22/2016 23.39 DOCTOR: Martell Ghotra Interpretating Date/Time 12/24/2016 12:54:11
--- NOTE | 2016-12-24 15:06 | HHI.PR ---
Subjective Remarks alert no sob at rest Objective Vital Signs Date Time Temp Pulse Resp B/P (MAP) Pulse Ox O2 Delivery O2 Flow Rate FiO2 12/24/16 11:28 97 Nasal Cannula 2.00 12/24/16 10:33 100 35 12/24/16 07:45 98 Nasal Cannula 4.00 12/24/16 06:00 106 26 161/89 (113) 99 12/24/16 06:00 97 12/24/16 05:00 98 20 146/83 (104) 99 12/24/16 04:30 99 Nasal Cannula 4.00 12/24/16 04:03 98 40 12/24/16 04:00 97.5 78 21 158/85 (109) 98 12/24/16 04:00 97.5 97 14 158/85 (109) 100 12/24/16 04:00 97 12/24/16 04:00 100 Nasal Cannula 4.00 12/24/16 03:00 88 25 150/84 (106) 98 12/24/16 02:00 80 12/24/16 02:00 86 21 151/91 (111) 99 12/24/16 01:20 99 40 12/24/16 01:00 92 26 164/99 (120) 97 12/24/16 00:00 97 Bi-Pap 40 12/24/16 00:00 97.8 111 20 131/74 (93) 97 12/24/16 00:00 111 12/23/16 23:00 90 22 119/73 (88) 94 12/23/16 22:01 106 23 155/86 (109) 98 12/23/16 22:00 92 12/23/16 21:12 99 40 12/23/16 21:00 81 12/23/16 20:00 99 Bi-Pap 40 12/23/16 20:00 100.5 110 29 155/89 (111) 99 12/23/16 20:00 78 12/23/16 19:38 100 40 12/23/16 19:00 112 27 155/89 (111) 95 12/23/16 18:00 114 15 187/105 (132) 99 12/23/16 18:00 114 12/23/16 17:57 99 40 12/23/16 17:00 116 38 193/101 (131) 98 12/23/16 16:45 Nasal Cannula 4.00 12/23/16 16:44 114 30 189/107 (134) 98 12/23/16 16:12 120 33 177/103 (127) 97 12/23/16 16:00 97 Venturi Mask 50 12/23/16 16:00 100.2 116 36 187/103 (131) 97 12/23/16 16:00 116 12/23/16 15:10 99 Venturi Mask 6.00 50 I/O 12/23/16 12/23/16 12/23/16 12/24/16 12/24/16 12/24/16 07:00 15:00 23:00 07:00 15:00 23:00 Intake Total 2155 ml 100 ml 644 ml 30 ml Output Total 500 ml 900 ml 600 ml Balance 1655 ml 100 ml -256 ml -570 ml Intake Oral 320 ml 30 ml IV Total 2155 ml 100 ml 324 ml Output Urine Total 500 ml 900 ml 600 ml # Voids 1 # Bowel Movements 0 Result Diagram: 12/24/16 0425 12/24/16 0425 Objective Remarks Laboratory Tests Test 12/22/16 23:20 12/23/16 00:05 12/23/16 02:00 12/23/16 03:50 Red Blood Count 4.44 MIL/MM3 (4.50-5.90) Mean Corpuscular Volume 100.8 FL (80.0-100.0) Monocytes (%) (Auto) 10.0 % (0.0-8.0) Random Glucose 149 MG/DL (74-106) Alkaline Phosphatase 120 U/L (45-117) Aspartate Amino Transf (AST/SGOT) 65 U/L (15-37) Estimat Glomerular Filtration Rate 85 ML/MIN (>89) Lactic Acid Level 3.0 mmol/L (0.4-2.0) Creatine Kinase MB 6.6 NG/ML (0.5-3.6) Arterial Blood Partial Pressure O2 240 mmHG (61-120) Urine Specific [place] GREATER THAN 1.035 Urine Protein 100 mg/dL (NEG-TRACE) Urine Ketones TRACE mg/dL (NEG) Urine Occult Blood SMALL (NEG) Urine RBC 4-9 /hpf (0-3) Urine Mucus FEW /lpf (OCC) Test 12/23/16 04:45 12/23/16 04:47 12/23/16 10:15 12/23/16 16:30 Activated Partial Thromboplast Time 31.0 SEC (24.3-30.1) Random Glucose 171 MG/DL (74-106) Calcium Level 8.2 MG/DL (8.5-10.1) Estimat Glomerular Filtration Rate 85 ML/MIN (>89) Phosphorus Level 2.4 MG/DL (2.5-4.9) Test 12/23/16 17:35 12/23/16 21:50 12/24/16 04:25 Arterial Blood pH 7.44 (7.380-7.420) Red Blood Count 3.68 MIL/MM3 (4.50-5.90) Hemoglobin 12.0 GM/DL (13.0-17.0) Hematocrit 36.4 % (39.0-51.0) Mean Platelet Volume 6.9 FL (7.0-11.0) Neutrophils (%) (Auto) 87.3 % (16.0-70.0) Lymphocytes (%) (Auto) 6.9 % (9.0-44.0) Lymphocytes # (Auto) 0.6 TH/MM3 (1.0-4.8) Random Glucose 155 MG/DL (74-106) Total Protein 6.2 GM/DL (6.4-8.2) Albumin 2.8 GM/DL (3.4-5.0) Calcium Level 7.9 MG/DL (8.5-10.1) Medications and IVs GENERAL: SKIN: Warm and dry. HEAD: Atraumatic. Normocephalic. EYES: Pupils equal and round. No scleral icterus. No injection or drainage. ENT: No nasal bleeding or discharge. Mucous membranes pink and moist. NECK: Trachea midline. No JVD. CARDIOVASCULAR: Regular rate and rhythm. RESPIRATORY: No accessory muscle use. Clear to auscultation. Breath sounds equal bilaterally. GASTROINTESTINAL: Abdomen soft, non-tender, nondistended. Hepatic and splenic margins not palpable. MUSCULOSKELETAL: Extremities without clubbing, cyanosis, or edema. No obvious deformities. NEUROLOGICAL: Awake and alert. No obvious cranial nerve deficits. Motor grossly within normal limits. Five out of 5 muscle strength in the arms and legs. Normal speech. PSYCHIATRIC: Appropriate mood and affect; insight and judgment normal. Assessment and Plan Assessment and Plan respiratory failure COPD PE RODY PNA CXRAY TODAY , ATELECTATIC CHANGE PLAN: O2 NEEDED ANTICOAGULATION ANTIBX BRONCHODILATOR THERAPY BIPAP INCREASE ACTIVITY WILL SIGN OFF OFFICE ONE WEEK POST D/C Caleb Ellis MD Dec 24, 2016 15:06
[2016-12-24] MEDS: LORazepam 2 MG/ML VIAL IV PUSH PRN (15:13)
[2016-12-24] MEDS: ATORVASTATIN 20 MG TAB PO SCH (22:06)
[2016-12-25] VITALS (31 sets, daily range): BP systolic 130–183; BP diastolic 68–114; PULSE 60–128; RESP 9–44; TEMP 97.7–99.2; O2SAT 97–100
[2016-12-25] MEDS: AZITHROMYCIN INJ 500 MG in SODIUM CHLOR 0.9% 250 ML INJ 250 ML IV SCH (01:00)
[2016-12-25 03:49] LABS: PHOSPHATIDYLSERINE AB IGA LESS THAN 20.0 U/mL (< 20.0); PHOSPHATIDYLSERINE AB IGM LESS THAN 25.0 U/mL (< 25.0)
[2016-12-25] MEDS: CHLORHEXIDINE GLUCONATE 2 % 1 PACK (2 CLOTHS) TOP SCH (04:00)
[2016-12-25 04:50] LABS: AUTOMATED NEUTROPHIL # 6.5 TH/MM3 (1.8-7.7); BASOPHIL % 0.2 % (0.0-2.0); EOSINOPHIL % 0.2 % (0.0-4.0); HEMATOCRIT 35.1 % (39.0-51.0); LYMPH % 6.6 % (9.0-44.0); LYMPHOCYTE # 0.5 TH/MM3 (1.0-4.8); MEAN CELL VOLUME 99.2 FL (80.0-100.0); MEAN CORPUSCULAR HEMOGLOBIN 32.5 PG (27.0-34.0); MEAN CORPUSCULAR HGB CONC 32.7 % (32.0-36.0); MONO % 4.9 % (0.0-8.0); NEUT % 88.1 % (16.0-70.0); PLATELET COUNT 162 TH/MM3 (150-450); RED BLOOD COUNT 3.54 MIL/MM3 (4.50-5.90); RED CELL DISTRIBUTION WIDTH 14.4 % (11.6-17.2); WHITE BLOOD COUNT 7.4 TH/MM3 (4.0-11.0)
[2016-12-25 04:51] LABS: HEMO FLAGS DIFF FINAL
[2016-12-25 04:59] LABS: CHLORIDE 107 MEQ/L (98-107); POTASSIUM 3.9 MEQ/L (3.5-5.1); SODIUM (NA) 140 MEQ/L (136-145)
[2016-12-25 05:03] LABS: ANION GAP 6 MEQ/L (5-15); BICARBONATE 26.6 MEQ/L (21.0-32.0); BLOOD UREA NITROGEN 20 MG/DL (7-18)
[2016-12-25 05:06] LABS: ALT (GPT) 20 U/L (12-78); AST (GOT) 23 U/L (15-37); GLOMERULAR FILTRATION RATE 93 ML/MIN (>89)
[2016-12-25 05:07] LABS: TOTAL BILIRUBIN ADULT 0.3 MG/DL (0.2-1.0)
[2016-12-25 05:08] LABS: ALKALINE PHOSPHATASE 68 U/L (45-117)
[2016-12-25] MEDS: methylPREDNISolone SOD SUCC 40 MG/1 ML VIAL IV SCH (05:53)
[2016-12-25] MEDS: ENOXAPARIN SODIUM 80 MG/0.8 ML SYRINGE SQ SCH (05:54)
[2016-12-25] MEDS: CEFEPIME INJ 2,000 MG in SODIUM CHLORIDE 0.9% INJ 100 ML IV SCH (05:54)
[2016-12-25] MEDS: SODIUM CHLOR 0.9% 1000 ML INJ 1,000 ML IV SCH (05:55)
[2016-12-25] MEDS: INSULIN ASPART SUPPLEMENTAL SCALE SQ SCH ×4 (06:23→21:00)
[2016-12-25] MEDS: RESP: ALBUTEROL 2.5 MG/IPRATROPIUM 0.5 MG NEB (SCH) NEB ×3 (07:57→21:04)
[2016-12-25] MEDS: LORazepam 1 MG TAB PO SCH ×2 (08:00→21:39)
[2016-12-25] MEDS: FAMOTIDINE 20 MG/2 ML VIAL IV PUSH SCH ×2 (08:00→21:00)
[2016-12-25] MEDS: METOPROLOL TARTRATE 25 MG TAB PO SCH ×2 (08:00→21:39)
[2016-12-25] MEDS: NICOTINE 14 MG/24 HR PATCH T-DERMAL SCH (08:00)
[2016-12-25] MEDS: MULTIVITAMIN TAB PO SCH (08:01)
[2016-12-25] MEDS: FOLIC ACID 1 MG TAB PO SCH (08:01)
[2016-12-25] MEDS: ASPIRIN EC 81 MG TABEC PO SCH (08:01)
[2016-12-25] MEDS: DOCUSATE SODIUM 50 MG/SENNA 8.6 MG TAB PO SCH ×2 (08:01→21:39)
[2016-12-25] MEDS: CLOPIDOGREL 75 MG TAB PO SCH (08:01)
[2016-12-25] MEDS: LISINOPRIL 10 MG TAB PO SCH ×2 (08:01→21:39)
[2016-12-25] MEDS: SODIUM CHLORIDE 0.9% FLUSH 10 ML FLUSH SCH ×2 (08:02→21:41)
[2016-12-25] MEDS: FLUTICASONE 100 MCG/VILANTEROL 25 MCG INHALER INH SCH (08:02)
[2016-12-25] MEDS: REMOVE OLD PATCH T-DERMAL SCH (08:02)
--- NOTE | 2016-12-25 11:07 | HHI.PR ---
Subjective Remarks Patient feeling better will d/c IV fluid using BIPAP only at night on lovenox for pe on 70 q 12 ,will change to xarelto 15 bid continue antibiotics for now change to po in am should be able to go home has oxygen at home Objective Vitals GENERAL: SKIN: Warm and dry. HEAD: Atraumatic. Normocephalic. EYES: Pupils equal and round. No scleral icterus. No injection or drainage. ENT: No nasal bleeding or discharge. Mucous membranes pink and moist. NECK: Trachea midline. No JVD. CARDIOVASCULAR: Regular rate and rhythm. RESPIRATORY: No accessory muscle use. Clear to auscultation. Breath sounds equal bilaterally. GASTROINTESTINAL: Abdomen soft, non-tender, nondistended. Hepatic and splenic margins not palpable. MUSCULOSKELETAL: Extremities without clubbing, cyanosis, or edema. No obvious deformities. NEUROLOGICAL: Awake and alert. No obvious cranial nerve deficits. Motor grossly within normal limits. Five out of 5 muscle strength in the arms and legs. Normal speech. PSYCHIATRIC: Appropriate mood and affect; insight and judgment normal. Vital Signs Date Time Temp Pulse Resp B/P (MAP) Pulse Ox O2 Delivery O2 Flow Rate FiO2 12/25/16 07:57 98 Nasal Cannula 3.00 12/25/16 06:10 88 17 164/82 (109) 99 12/25/16 06:03 94 22 174/101 (125) 100 12/25/16 06:00 88 19 166/114 (131) 100 12/25/16 06:00 94 12/25/16 05:00 72 15 172/82 (112) 99 12/25/16 04:13 99 35 12/25/16 04:00 97.8 66 20 164/97 (119) 99 12/25/16 04:00 99 Bi-Pap 40 12/25/16 04:00 60 12/25/16 03:00 66 21 148/76 (100) 98 12/25/16 02:00 69 12/25/16 02:00 74 19 149/86 (107) 98 12/25/16 01:00 100 22 156/93 (114) 100 12/25/16 00:31 99 35 12/25/16 00:00 98 Bi-Pap 40 12/25/16 00:00 74 12/25/16 00:00 97.7 82 21 130/68 (88) 98 12/24/16 23:00 88 29 129/67 (87) 98 12/24/16 22:15 100 35 12/24/16 22:00 103 12/24/16 22:00 82 33 124/70 (88) 98 12/24/16 21:00 102 30 156/78 (104) 97 12/24/16 20:00 95 Nasal Cannula 40 Bi-Pap 12/24/16 20:00 85 12/24/16 20:00 99.3 114 24 157/89 (111) 97 12/24/16 19:23 98 Nasal Cannula 3.00 12/24/16 19:21 84 20 131/84 (100) 95 12/24/16 18:46 100 22 122/75 (91) 95 12/24/16 18:46 100 12/24/16 18:30 104 44 96 12/24/16 18:30 104 12/24/16 18:00 108 23 99 12/24/16 18:00 108 12/24/16 17:33 116 28 167/83 (111) 96 12/24/16 17:33 116 12/24/16 17:00 118 30 96 12/24/16 16:00 96 Nasal Cannula 4.00 12/24/16 16:00 118 12/24/16 16:00 118 26 99 12/24/16 15:57 99 35 12/24/16 15:00 116 28 165/90 (115) 97 12/24/16 14:00 108 24 126/74 (91) 98 12/24/16 14:00 108 12/24/16 13:00 112 25 151/84 (106) 96 12/24/16 12:00 114 12/24/16 12:00 114 38 164/90 (114) 96 12/24/16 12:00 99 Bi-Pap 40 12/24/16 11:28 97 Nasal Cannula 2.00 12/24/16 11:00 106 17 153/102 (119) 99 Result Diagram: 12/25/16 0429 12/25/16 0429 Imaging Last 24 hours Impressions Chest X-Ray 12/24/16 0000 Signed Impressions: Service Date/Time: December 05:22 - CONCLUSION: 1. Minimal bibasilar atelectasis. 2. No significant interval change. Que Nicole MD A/P Problem List: (1) Pulmonary embolism ICD Codes: I26.99 - Other pulmonary embolism without acute cor pulmonale Status: Acute Plan: is on lovenox change to xarelto 15 bid ,ultrasound upper and lower negative for dvt (2) COPD exacerbation ICD Codes: J44.1 - Obstructive chronic bronchitis with exacerbation Status: Chronic Plan: on nebulizer, solumedrol will change to po prednisone today (3) Pneumonia ICD Codes: J18.9 - Pneumonia Status: Acute Plan: started on zithromax ,and cefpime-chest xray shows no infiltrate at this time will change to PO meds (4) Alcohol withdrawal ICD Codes: F10.239 - Alcohol withdrawal syndrome Status: Acute Plan: not on full protocol due to pulmonary problem does have ativan which seems to be working Assessment and Plan as above continue current plan if continues to imporve will transfer to regular floor today Problem Qualifiers (1) Pulmonary embolism: Qualified Codes: I26.99 - Other pulmonary embolism without acute cor pulmonale Ryley Rodgers MD Dec 25, 2016 11:07
[2016-12-25] MEDS: RESP: ALBUTEROL 2.5 MG/IPRATROPIUM 0.5 MG NEB (PRN) NEB ×2 (11:56→17:50)
[2016-12-25] MEDS: RIVAROXABAN 15 MG TAB PO SCH (16:48)
[2016-12-25 19:52] LABS: THROMBIN TIME FOR LA ND sec (13-19)
[2016-12-25] MEDS: CEFUROXIME AXETIL 500 MG TAB PO SCH (21:39)
[2016-12-25] MEDS: ATORVASTATIN 20 MG TAB PO SCH (21:39)
[2016-12-25] MEDS: predniSONE 20 MG TAB PO SCH (21:40)
[2016-12-26] VITALS (21 sets, daily range): BP systolic 134–196; BP diastolic 60–113; PULSE 68–114; RESP 12–41; TEMP 97.6–99.2; O2SAT 91–99
[2016-12-26] MEDS: RESP: ALBUTEROL 2.5 MG/IPRATROPIUM 0.5 MG NEB (PRN) NEB (03:44)
[2016-12-26] MEDS: CHLORHEXIDINE GLUCONATE 2 % 1 PACK (2 CLOTHS) TOP SCH (04:00)
--- NOTE | 2016-12-26 06:39 | HHI.PR ---
Subjective Remarks Overall feeling well. Did use BiPAP last night for a few hours. Discharge home. Has supplemental oxygen and walkers and canes at home. Objective Vitals Vital Signs Date Time Temp Pulse Resp B/P (MAP) Pulse Ox O2 Delivery O2 Flow Rate FiO2 12/26/16 03:45 98 Nasal Cannula 3.00 12/26/16 03:00 96 20 142/86 (104) 12/26/16 02:45 Nasal Cannula 4.00 12/26/16 02:00 68 12/26/16 02:00 68 17 154/101 (118) 12/26/16 01:20 98 35 12/26/16 01:00 94 25 134/60 (84) 12/26/16 00:00 99.2 80 12 149/100 (116) 12/26/16 00:00 80 12/26/16 00:00 93 12/25/16 23:00 78 9 160/92 (114) 12/25/16 22:10 98 35 12/25/16 22:00 100 15 158/95 (116) 12/25/16 22:00 100 12/25/16 21:09 98 Nasal Cannula 3.00 12/25/16 21:00 106 26 169/91 (117) 12/25/16 20:00 102 12/25/16 20:00 99 Nasal Cannula 4.00 12/25/16 20:00 99.2 102 30 163/91 (115) 12/25/16 19:00 110 23 152/93 (112) 12/25/16 18:00 128 44 170/75 (106) 12/25/16 18:00 128 12/25/16 17:00 104 161/97 (118) 12/25/16 16:00 98.8 82 17 154/77 (102) 99 12/25/16 16:00 82 12/25/16 16:00 99 Nasal Cannula 4.00 12/25/16 15:00 100 21 150/81 (104) 12/25/16 14:00 116 31 139/83 (101) 12/25/16 14:00 116 12/25/16 13:00 122 30 165/91 (115) 12/25/16 12:00 97 Nasal Cannula 4.00 12/25/16 12:00 98.7 106 15 177/103 (127) 12/25/16 12:00 106 12/25/16 11:00 98 23 179/98 (125) 12/25/16 10:00 92 12/25/16 10:00 92 19 153/72 (99) 12/25/16 09:00 102 21 160/89 (112) 12/25/16 08:00 102 12/25/16 08:00 106 27 183/111 (135) 12/25/16 08:00 98 Nasal Cannula 4.00 12/25/16 07:57 98 Nasal Cannula 3.00 12/25/16 07:00 98.0 98 20 169/110 (129) 97 GENERAL: Awake, alert and oriented. Pleasant. Cooperative with exam. No apparent distress. SKIN: Warm and dry. A few purpuric lesions on forearms. HEAD: Normocephalic. EYES: No scleral icterus. No injection or drainage. NECK: Supple, trachea midline. No JVD or lymphadenopathy. CARDIOVASCULAR: Regular rate and rhythm without murmurs, gallops, or rubs. RESPIRATORY: Breath sounds equal bilaterally. Few expiratory wheezes with overall fair air movement. No fine crackles. GASTROINTESTINAL: Abdomen soft, non-tender, nondistended. MUSCULOSKELETAL: No cyanosis, or edema. Moves all extremities. BACK: No CVA tenderness. Result Diagram: 12/25/1642812/25/16428 Imaging Last 24 hours Impressions Chest X-Ray 12/24/16 0000 Signed Impressions: Service Date/Time: December 05:22 - CONCLUSION: 1. Minimal bibasilar atelectasis. 2. No significant interval change. Que Nicole MD Urinary Catheter: No Vascular Central Line Catheter: No A/P Problem List: (1) Pulmonary embolism ICD Codes: I26.99 - Other pulmonary embolism without acute cor pulmonale Status: Acute Plan: Previously on lovenox, has been changed to xarelto 15 bid ,ultrasound upper and lower negative for dvt I advised patient he will need to be on the road to 15 mg twice a day for 21 days and then convert to 20 mg once a day. (2) COPD exacerbation ICD Codes: J44.1 - Obstructive chronic bronchitis with exacerbation Status: Chronic Plan: on nebulizer, converted to oral prednisone yesterday. Discharge home on antibiotic and tapering prednisone. He will continue home supplemental oxygen. (3) Pneumonia ICD Codes: J18.9 - Pneumonia Status: Acute Plan: started initially on zithromax ,and cefpime-chest xray shows no infiltrate at this time. Converted to oral meds just repeat (4) Alcohol withdrawal ICD Codes: F10.239 - Alcohol withdrawal syndrome Status: Acute Plan: not on full protocol due to pulmonary problem does have ativan which seems to be working Minimal tremor noted on exam at times otherwise vitals are relatively stable. Discharge Planning Discharge home today with home health. Problem Qualifiers (1) Pulmonary embolism: Qualified Codes: I26.99 - Other pulmonary embolism without acute cor pulmonale Jac Amaro MD PhD Dec 26, 2016 06:39
[2016-12-26] MEDS: SODIUM CHLOR 0.9% 1000 ML INJ 1,000 ML IV SCH (06:42)
[2016-12-26] MEDS ORDERED: XARE15TA PO (06:45)
[2016-12-26] MEDS ORDERED: NICO14DI23 T-DERMAL (06:45)
[2016-12-26] MEDS ORDERED: AZIT250T3 PO (06:45)
[2016-12-26] MEDS ORDERED: CEFU1TAB20 PO (06:45)
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
--- NOTE | 2016-12-26 06:52 | HHI.FF ---
Face to Face Verification Diagnosis: (1) Pulmonary embolism (2) COPD exacerbation Physical Therapy Order: Evaluate and Treat, Improve ambulation, Strength and gait training Home Health Nursing Order: Oxygen administration education I have seen patient Tee Calderon on 12/26/16. My clinical findings support the need for the requested home health care services because: Ltd mobility - disease progression Patient has SOB I certify that my clinical findings support that this patient is homebound because: Hx COPD- exertion dyspnea/weakness Unsteady gait/balance Jac Amaro MD PhD Dec 26, 2016 06:52
[2016-12-26] MEDS: INSULIN ASPART SUPPLEMENTAL SCALE SQ SCH ×2 (07:00→13:30)
[2016-12-26] MEDS: NICOTINE 14 MG/24 HR PATCH T-DERMAL SCH (08:08)
[2016-12-26] MEDS: FOLIC ACID 1 MG TAB PO SCH (08:08)
[2016-12-26] MEDS: FLUTICASONE 100 MCG/VILANTEROL 25 MCG INHALER INH SCH (08:08)
[2016-12-26] MEDS: CEFUROXIME AXETIL 500 MG TAB PO SCH (08:08)
[2016-12-26] MEDS: LISINOPRIL 10 MG TAB PO SCH (08:08)
[2016-12-26] MEDS: METOPROLOL TARTRATE 25 MG TAB PO SCH (08:08)
[2016-12-26] MEDS: predniSONE 20 MG TAB PO SCH (08:09)
[2016-12-26] MEDS: CLOPIDOGREL 75 MG TAB PO SCH (08:09)
[2016-12-26] MEDS: MULTIVITAMIN TAB PO SCH (08:09)
[2016-12-26] MEDS: ASPIRIN EC 81 MG TABEC PO SCH (08:10)
[2016-12-26] MEDS: LORazepam 1 MG TAB PO SCH (08:10)
[2016-12-26] MEDS: SODIUM CHLORIDE 0.9% FLUSH 10 ML FLUSH SCH (08:10)
[2016-12-26] MEDS: DOCUSATE SODIUM 50 MG/SENNA 8.6 MG TAB PO SCH (08:11)
[2016-12-26] MEDS: REMOVE OLD PATCH T-DERMAL SCH (08:11)
[2016-12-26] MEDS: FAMOTIDINE 20 MG/2 ML VIAL IV PUSH SCH (08:14)
[2016-12-26] MEDS: RIVAROXABAN 15 MG TAB PO SCH (08:14)
[2016-12-26] MEDS: RESP: ALBUTEROL 2.5 MG/IPRATROPIUM 0.5 MG NEB (SCH) NEB (08:16)
[2016-12-26] MEDS ORDERED: AZITHROMYCIN 250 MG TAB PO SCH (09:00)
[2016-12-26] MEDS ORDERED: cloNIDine HCL 0.1 MG TAB PO PRN (12:00)
[2016-12-26] MEDS ORDERED: METOPROLOL TARTRATE 25 MG TAB PO ONE (12:00)
== END 2016-12-26 14:50 | disposition home health service (06) | DRG 175 ==
LOC: PHED 23:20 → PHEDA 12-23 01:58 → PHICU 12-23 04:40
PROVIDERS: ADMIT Internal Medicine; ATTEND Internal Medicine
PROC: 5A09457 Assistance with Respiratory Ventilation, 24-96 Consecutive Hours, Continuous Positive Airway Pressure (ICD-10-PCS; principal; 2016-12-22)
DX: I26.99 Other pulmonary embolism without acute cor pulmonale (principal); J18.9 Pneumonia, unspecified organism; F10.231 Alcohol dependence with withdrawal delirium; J96.11 Chronic respiratory failure with hypoxia; Z99.81 Dependence on supplemental oxygen; J44.0 Chronic obstructive pulmonary disease with (acute) lower respiratory infection; J44.1 Chronic obstructive pulmonary disease with (acute) exacerbation; I25.10 Atherosclerotic heart disease of native coronary artery without angina pectoris; I73.9 Peripheral vascular disease, unspecified; K21.9 Gastro-esophageal reflux disease without esophagitis; I10 Essential (primary) hypertension; E05.90 Thyrotoxicosis, unspecified without thyrotoxic crisis or storm; E78.5 Hyperlipidemia, unspecified; G47.33 Obstructive sleep apnea (adult) (pediatric); M19.90 Unspecified osteoarthritis, unspecified site; F17.200 Nicotine dependence, unspecified, uncomplicated; Y90.9 Presence of alcohol in blood, level not specified; Z85.828 Personal history of other malignant neoplasm of skin; Z96.643 Presence of artificial hip joint, bilateral
CPT/HCPCS: 36600; 71010; 71275; 80048; 80053; 81001; 81240; 81241; 81291; 82550; 82552; 82805; 82948; 83090; 83605; 83735; 84100; 84484; 85025; 85240; 85300; 85303; 85306; 85307; 85610; 85613; 85730; 86146; 86147; 86148; 87040; 87205; 87449; 87641; 87804; 93005; 93306; 93970; 94002; 94003; 94640; 94664; 96361; 96365; 96367; 96375; J0456; J0692; J0696; J1650; J1815; J2060; J2920; J2930; J7030; J7050; J7512; Q9967

== ENCOUNTER 2017-01-10 10:07 | Inpatient (IN) | payer MEDICARE ==
[2017-01-10] VITALS (11 sets, daily range): BP systolic 126–194; BP diastolic 81–101; PULSE 110–132; RESP 20; TEMP 98.3–99.5; O2SAT 94–99
[~2017-01-10] VITALS: Ht 172.7 cm; Wt 90.4 kg
[~2017-01-10 10:07] MED LIST changes: -ACET-703 PO; -ASPI81TA81 PO; +AZIT250T3 PO; +CEFU1TAB20 PO; -IPRA0.02 NEB; -METR500T10 PO; +NICO14DI23 T-DERMAL; +XARE15TA PO
[2017-01-10] MEDS ORDERED: TETANUS/DIPHTHERIA TOXOID ADULT 0.5 ML VIAL IM ONE (10:15)
[2017-01-10] MEDS ORDERED: SODIUM CHLORID 0.9% 500 ML INJ 500 ML IV ONE (10:15)
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
[2017-01-10 10:37] LABS: AUTOMATED NEUTROPHIL # 11.8 TH/MM3 (1.8-7.7); BASOPHIL # 0.1 TH/MM3 (0-0.2); BASOPHIL % 0.6 % (0.0-2.0); EOSINOPHIL # 0.1 TH/MM3 (0-0.4); EOSINOPHIL % 0.5 % (0.0-4.0); HEMATOCRIT 34.4 % (39.0-51.0); LYMPH % 7.6 % (9.0-44.0); LYMPHOCYTE # 1.1 TH/MM3 (1.0-4.8); MEAN CELL VOLUME 99.6 FL (80.0-100.0); MEAN CORPUSCULAR HEMOGLOBIN 32.9 PG (27.0-34.0); MEAN CORPUSCULAR HGB CONC 33.1 % (32.0-36.0); MONO % 7.4 % (0.0-8.0); NEUT % 83.9 % (16.0-70.0); PLATELET COUNT 314 TH/MM3 (150-450); RED BLOOD COUNT 3.45 MIL/MM3 (4.50-5.90); RED CELL DISTRIBUTION WIDTH 13.9 % (11.6-17.2); WHITE BLOOD COUNT 14.1 TH/MM3 (4.0-11.0)
[2017-01-10 10:43] LABS: HEMO FLAGS AUTO DIFF
[2017-01-10 10:45] LABS: POTASSIUM 3.4 MEQ/L (3.5-5.1)
[2017-01-10 10:49] LABS: BICARBONATE 19.3 MEQ/L (21.0-32.0)
[2017-01-10 10:59] LABS: BANDS 15 % (0-6); EOSINOPHILS 1 % (0-4); NEUTROPHIL # MANUAL DIFF 12.1 TH/MM3 (1.8-7.7); PLATELET ESTIMATE SMEAR NORMAL (NORMAL); PLATELET MORPHOLOGY NORMAL (NORMAL); POLYS (SEG NEUTROPHILS) 71 % (16-70); WBC DIFF SAMPLE 100
[2017-01-10 11:00] LABS: SCAN/DIFF FINAL DIFF MANUAL
--- NOTE | 2017-01-10 11:29 | RADRPT ---
EXAM DATE/TIME: 01/10/2017 10:47 [facility] COMPARISON: No previous studies available for comparison. INDICATIONS : Left side mid chest pain from fall last pm MEDICAL HISTORY : Chronic obstructive pulmonary disease. SURGICAL HISTORY : None. ENCOUNTER: Initial ACUITY: 1 day PAIN SCORE: 8/10 LOCATION: Left middle Chest wall FINDINGS: Expiratory view of the chest demonstrates no pneumothorax. No rib fracture or acute rib abnormality i s identified. The visualized surrounding structures demonstrate no acute finding. CONCLUSION: No acute rib fracture is identified. Vidal Valentine MD on January 10, 2017 at 11:24 Board Certified Radiologist. This report was verified electronically.
[2017-01-10] MEDS ORDERED: RESP: ALBUTEROL 2.5 MG/IPRATROPIUM 0.5 MG NEB (SCH) NEB ONE (11:30)
[2017-01-10] MEDS ORDERED: POTASSIUM CHLORIDE 20 MEQ CONTROLLED RELEASE TAB PO ONE ×2 (11:45→15:00)
[2017-01-10] MEDS ORDERED: methylPREDNISolone SOD SUCC 125 MG/2 ML VIAL IV PUSH ONE (13:15)
[2017-01-10] MEDS ORDERED: AZITHROMYCIN INJ 500 MG in SODIUM CHLOR 0.9% 250 ML INJ 250 ML IV ONE (13:15)
[2017-01-10] MEDS ORDERED: cefTRIAXone INJ 1,000 MG in SODIUM CHLORIDE 0.9% INJ 100 ML IV ONE (13:15)
[2017-01-10] MEDS ORDERED: ACETAMINOPHEN 325 MG TAB PO PRN (13:30)
[2017-01-10] MEDS ORDERED: SODIUM CHLORIDE 0.9% FLUSH 10 ML FLUSH IVF PRN (13:30)
[2017-01-10] MEDS ORDERED: ONDANSETRON HCL 4 MG/2 ML VIAL IV PRN (13:30)
[2017-01-10] MEDS ORDERED: LORazepam 2 MG/ML VIAL IV PUSH PRN ×4 (13:45)
[2017-01-10] MEDS ORDERED: LORazepam 2 MG TAB PO PRN (13:45)
[2017-01-10] MEDS ORDERED: SODIUM CHLORIDE 0.9% FLUSH 10 ML FLUSH IV FLUSH PRN (13:45)
[2017-01-10] MEDS ORDERED: FLUMAZENIL 0.5 MG/5 ML VIAL IV PUSH PRN (13:45)
[2017-01-10] MEDS: FOLIC ACID 1 MG TAB PO SCH (14:09)
--- NOTE | 2017-01-10 14:38 | RADRPT ---
EXAM DATE/TIME: 01/10/2017 14:17 [facility] COMPARISON: CHEST PA & LAT, June 12, 2014, 8:35. INDICATIONS : Left side chest pain from fall, short of breath MEDICAL HISTORY : Chronic obstructive pulmonary disease. SURGICAL HISTORY : None. ENCOUNTER: Subsequent ACUITY: 1 day PAIN SCORE: 8/10 LOCATION: Left chest FINDINGS: PA and lateral views the chest were obtained. The study is more Midinspiratory with apparent atelecta sis at the lung bases. No new areas of consolidation or effusion. There are overlying cardiac leads a nd oxygen tubing. The heart size is within normal limits. The bony thorax remains intact. CONCLUSION: More Midinspiratory exam with apparent atelectasis at the lung bases. Saman Mina MD on January 10, 2017 at 14:36 Board Certified Radiologist. This report was verified electronically.
[2017-01-10] MEDS ORDERED: OXYGEN INH SCH (14:45)
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
[2017-01-10] MEDS: MULTIVITAMINS/MINERALS THERAPEUTIC TAB PO SCH (15:33)
[2017-01-10] MEDS: METOPROLOL TARTRATE 25 MG TAB PO SCH (15:34)
[2017-01-10] MEDS: methylPREDNISolone SOD SUCC 40 MG/1 ML VIAL IV PUSH SCH ×2 (15:35→20:51)
[2017-01-10] MEDS: THIAMINE INJ 100 MG in SODIUM CHLORIDE 0.9% INJ 100 ML IV SCH (15:39)
[2017-01-10] MEDS: RESP: ALBUTEROL 2.5 MG/IPRATROPIUM 0.5 MG NEB (SCH) NEB ×3 (15:47→23:12)
[2017-01-10] MEDS: RIVAROXABAN 15 MG TAB PO SCH (17:56)
[2017-01-10] MEDS: ACETAMINOPHEN/HYDROcodone 325 MG/5 MG TAB PO PRN (19:36)
[2017-01-10 19:51] LABS: C. DIFF EPI 027 PRESUMPTIVE POSITIVE (NEGATIVE)
[2017-01-10] MEDS: metroNIDAZOLE 500 MG TAB PO SCH (20:51)
[2017-01-10] MEDS: ATORVASTATIN 20 MG TAB PO SCH (20:51)
[2017-01-10] MEDS: SODIUM CHLORIDE 0.9% FLUSH 10 ML FLUSH IV FLUSH SCH (20:52)
[2017-01-10] MEDS ORDERED: LISINOPRIL 10 MG TAB PO SCH (21:00)
[2017-01-10] MEDS ORDERED: SODIUM CHLORIDE 0.9% FLUSH 10 ML FLUSH IV FLUSH SCH (21:00)
[2017-01-10] MEDS: LORazepam 1 MG TAB PO PRN (22:00)
[2017-01-10] MEDS ORDERED: LISINOPRIL 10 MG TAB PO ONE (23:15)
[2017-01-10] MEDS ORDERED: METOPROLOL TARTRATE 25 MG TAB PO ONE (23:15)
[2017-01-10] MEDS ORDERED: ACETAMINOPHEN/HYDROcodone 325 MG/5 MG TAB PO PRN (23:15)
[2017-01-11] VITALS (9 sets, daily range): BP systolic 162–186; BP diastolic 91–102; PULSE 105–132; RESP 18–22; TEMP 96.2–98.7; O2SAT 95–96
[2017-01-11] MEDS: ACETAMINOPHEN/HYDROcodone 325 MG/5 MG TAB PO PRN ×4 (02:38→21:14)
[2017-01-11] MEDS: LORazepam 1 MG TAB PO PRN ×2 (02:38→09:18)
[2017-01-11] MEDS: RESP: ALBUTEROL 2.5 MG/IPRATROPIUM 0.5 MG NEB (SCH) NEB ×6 (03:57→23:13)
[2017-01-11 05:51] LABS: AUTOMATED NEUTROPHIL # 11.1 TH/MM3 (1.8-7.7); EOSINOPHIL % 0.2 % (0.0-4.0); HEMATOCRIT 34.3 % (39.0-51.0); LYMPH % 3.9 % (9.0-44.0); LYMPHOCYTE # 0.5 TH/MM3 (1.0-4.8); MEAN CELL VOLUME 99.6 FL (80.0-100.0); MEAN CORPUSCULAR HGB CONC 33.2 % (32.0-36.0); MONO % 3.1 % (0.0-8.0); NEUT % 92.8 % (16.0-70.0); PLATELET COUNT 263 TH/MM3 (150-450); RED BLOOD COUNT 3.45 MIL/MM3 (4.50-5.90); RED CELL DISTRIBUTION WIDTH 13.5 % (11.6-17.2)
[2017-01-11] MEDS: methylPREDNISolone SOD SUCC 40 MG/1 ML VIAL IV PUSH SCH ×3 (05:53→21:15)
[2017-01-11 05:54] LABS: HEMO FLAGS DIFF FINAL
[2017-01-11 05:56] LABS: POTASSIUM 3.6 MEQ/L (3.5-5.1)
[2017-01-11 05:59] LABS: BICARBONATE 20.7 MEQ/L (21.0-32.0)
--- NOTE | 2017-01-11 06:53 | HHI.PR ---
Subjective Remarks Still has chest wall pain. His breathing is a little better today. He is on oxygen (uses at home also) Objective Vitals Vital Signs Date Time Temp Pulse Resp B/P (MAP) Pulse Ox O2 Delivery O2 Flow Rate FiO2 01/11/17 04:00 97.6 106 20 186/98 (127) 95 01/10/17 23:00 99.2 110 20 188/97 (127) 96 01/10/17 22:00 117 01/10/17 20:00 98.5 115 20 182/101 (128) 96 01/10/17 19:20 Nasal Cannula 2.00 01/10/17 19:19 94 21 01/10/17 15:49 95 Nasal Cannula 2.00 01/10/17 15:02 01/10/17 15:00 99.5 132 20 156/100 (118) 94 01/10/17 14:46 115 20 179/90 (119) Nasal Cannula 1.00 01/10/17 14:13 127 20 194/91 (125) 96 Nasal Cannula 1.00 01/10/17 12:10 120 20 185/99 (127) 99 Room Air 01/10/17 11:05 120 20 126/83 (97) 95 Room Air 01/10/17 10:15 120 20 96 Room Air 01/10/17 10:12 98.3 124 20 139/81 (100) 96 Result Diagram: 01/11/1751601/11/17 05 Other Results Laboratory Tests Test 01/10/17 10:30 01/10/17 15:15 01/11/17 05:17 White Blood Count 14.1 TH/MM3 12.0 TH/MM3 Red Blood Count 3.45 MIL/MM3 3.45 MIL/MM3 Hemoglobin 11.4 GM/DL 11.4 GM/DL Hematocrit 34.4 % 34.3 % Mean Corpuscular Volume 99.6 FL 99.6 FL Mean Corpuscular Hemoglobin 32.9 PG 33.0 PG Mean Corpuscular Hemoglobin Concent 33.1 % 33.2 % Red Cell Distribution Width 13.9 % 13.5 % Platelet Count 314 TH/MM3 263 TH/MM3 Mean Platelet Volume 6.5 FL 7.4 FL Neutrophils (%) (Auto) 83.9 % 92.8 % Lymphocytes (%) (Auto) 7.6 % 3.9 % Monocytes (%) (Auto) 7.4 % 3.1 % Eosinophils (%) (Auto) 0.5 % 0.2 % Basophils (%) (Auto) 0.6 % 0.0 % Neutrophils # (Auto) 11.8 TH/MM3 11.1 TH/MM3 Lymphocytes # (Auto) 1.1 TH/MM3 0.5 TH/MM3 Monocytes # (Auto) 1.0 TH/MM3 0.4 TH/MM3 Eosinophils # (Auto) 0.1 TH/MM3 0.0 TH/MM3 Basophils # (Auto) 0.1 TH/MM3 0.0 TH/MM3 CBC Comment AUTO DIFF DIFF FINAL Differential Total Cells Counted 100 Neutrophils % (Manual) 71 % Band Neutrophils % 15 % Lymphocytes % 7 % Monocytes % 6 % Eosinophils % 1 % Neutrophils # (Manual) 12.1 TH/MM3 Differential Comment FINAL DIFF MANUAL Platelet Estimate NORMAL Platelet Morphology Comment NORMAL Red Cell Morphology Comment NORMAL Blood Urea Nitrogen 12 MG/DL 15 MG/DL Creatinine 0.71 MG/DL 0.64 MG/DL Random Glucose 91 MG/DL 164 MG/DL Calcium Level 8.0 MG/DL 8.0 MG/DL Sodium Level 144 MEQ/L 138 MEQ/L Potassium Level 3.4 MEQ/L 3.6 MEQ/L Chloride Level 114 MEQ/L 108 MEQ/L Carbon Dioxide Level 19.3 MEQ/L 20.7 MEQ/L Anion Gap 11 MEQ/L 9 MEQ/L Estimat Glomerular Filtration Rate 110 ML/MIN 124 ML/MIN Thyroid Stimulating Hormone 3rd Gen 0.074 uIU/ML Ethyl Alcohol Level 83 MG/DL Stool C. difficile Toxin (PCR) POSITIVE Stl C. difficile Toxin Epiderm 027 PRESUMPTIVE POSITIVE Imaging Last Impressions Ribs X-Ray 01/10/17 0000 Signed Impressions: Service Date/Time: Tuesday, January 10, 2017 10:47 - CONCLUSION: No acute rib fracture is identified. Vidal Valentine MD Chest X-Ray 01/10/17 0000 Signed Impressions: Service Date/Time: Tuesday, January 10, 2017 14:17 - CONCLUSION: More Midinspiratory exam with apparent atelectasis at the lung bases. Saman Mina MD Objective Remarks Exam: Pleasant white male in no distress. HEENT: Pupils equal, no scleral icterus, mouth negative Neck: No JVD Heart: Regular rhythm with slight tachycardia Lungs: Distant breath sounds but no wheezing Abdomen: Soft, nontender Chest: slurry control tender left lower anterolateral chest wall Extremities: No edema Neuro: Alert, oriented, no focal findings A/P Assessment and Plan Assessent: --COPD exacerbation--improving --C. difficile colitis --Fall with contusion left lower chest wall --Hypertension --Peripheral artery disease with prior vascular procedures --Minimal alcohol withdrawal --Recent pulmonary embolism (on Xarelto) Plan: Continue nebulizer treatment, steroids, and Azithromycin. He was started on Flagyl po yesterday and GI consulted for his C. difficile colitis. I will order physical therapy evaluation today and try to ambulate him. Continue Lorazepam as needed. Continue on Xarelto for his recent PE. Ephraim Chapman MD Jan 11, 2017 06:53
[2017-01-11] MEDS: SODIUM CHLORIDE 0.9% FLUSH 10 ML FLUSH IV FLUSH SCH ×2 (09:15→21:14)
[2017-01-11] MEDS: metroNIDAZOLE 500 MG TAB PO SCH ×3 (09:15→17:27)
[2017-01-11] MEDS: LISINOPRIL 20 MG TAB PO SCH ×2 (09:15→21:14)
[2017-01-11] MEDS: METOPROLOL TARTRATE 25 MG TAB PO SCH (09:15)
[2017-01-11] MEDS: RIVAROXABAN 15 MG TAB PO SCH ×2 (09:16→17:27)
[2017-01-11] MEDS: FOLIC ACID 1 MG TAB PO SCH (09:16)
[2017-01-11] MEDS: MULTIVITAMINS/MINERALS THERAPEUTIC TAB PO SCH (09:16)
[2017-01-11 09:30] LABS: FREE T3 1.42 PG/ML (2.18-3.98); FREE T4 0.81 NG/DL (0.76-1.46)
[2017-01-11] MEDS: AZITHROMYCIN INJ 500 MG in SODIUM CHLOR 0.9% 250 ML INJ 250 ML IV SCH (12:47)
[2017-01-11] MEDS ORDERED: METOPROLOL TARTRATE 25 MG TAB PO ONE (13:00)
[2017-01-11] MEDS ORDERED: cefTRIAXone INJ 1,000 MG in SODIUM CHLORIDE 0.9% INJ 100 ML IV SCH (14:00)
[2017-01-11] MEDS: THIAMINE INJ 100 MG in SODIUM CHLORIDE 0.9% INJ 100 ML IV SCH (15:20)
--- NOTE | 2017-01-11 15:36 | EKG ---
Date Performed: 01/10/2017 Time Performed: 12:58:50 PTAGE: 71 years EKG: SINUS TACHYCARDIA NONSPECIFIC ST & T-WAVE ABNORMALITY ABNORMAL RHYTHM ECG PREVIOUS TRACING : 12/23/[address]-T wave changes are new since prior tracing. Cannot rule out ischemia. Clinical correlation recommended. DOCTOR: Ephraim Cortes Interpretating Date/Time 01/11/2017 15:34:36
--- NOTE | 2017-01-11 16:11 | PD.CONS ---
HPI History of Present Illness This is a 71 year old male with hx COPD with numerous exacerbations who presented to ER after a fall on his stairs. he called fire rescue the next morning. he is being treated for COPD exacerbation. GI has been consulted for c diff. Pt developed loose stool about a week and a half ago. He was finishing up 2 different antibiotics, one for PNA. He has about 3-4 loose stools daily. He was also treated for c diff 06/2016. Denies pain, nausea. Is tolerating diet. Last had colonoscopy in 2005, cannot remember where but it was on [place], can recall no abnormal findings. (Belinda Jensen) PFSH Past Medical History COPD HTN HLD PAD GERD OA c diff Past Surgical History repair fracture humerus bilat hernia repairs bilat hip replacement excision vocal cord nodule (Belinda Jensen) Coded Allergies: No Known Allergies (Verified , 01/10/17) Family History AD Social History moderate ETOH consumption 1ppd no illicit drug use (Belinda Jensen) Review of Systems Constitutional: DENIES: Fever Eyes: DENIES: Blurred vision Ears, nose, mouth, throat: DENIES: Throat pain Respiratory: DENIES: Hemoptysis Cardiovascular: DENIES: Chest pain Gastrointestinal: COMPLAINS OF: Diarrhea, DENIES: Abdominal pain, Black stools , Bloody stools, Constipation, Nausea, Vomiting, Hematemesis Genitourinary: DENIES: Hematuria Musculoskeletal: DENIES: Joint Swelling Neurologic: DENIES: Abnormal gait Psychiatric: DENIES: Confusion (Belinda Jensen) GI Exam Vitals I&O Vital Signs Date Time Temp Pulse Resp B/P (MAP) Pulse Ox O2 Delivery O2 Flow Rate FiO2 01/11/17 12:50 108 01/11/17 12:00 98.7 105 18 162/102 (122) 96 01/11/17 08:10 132 01/11/17 08:00 98.0 112 20 182/101 (128) 96 01/11/17 07:52 96 Nasal Cannula 2.00 01/11/17 04:00 97.6 106 20 186/98 (127) 95 01/10/17 23:00 99.2 110 20 188/97 (127) 96 01/10/17 22:00 117 01/10/17 20:00 98.5 115 20 182/101 (128) 96 01/10/17 19:20 Nasal Cannula 2.00 01/10/17 19:19 94 21 I/O 01/10/17 01/10/17 01/10/17 01/11/17 01/11/17 01/11/17 07:00 15:00 23:00 07:00 15:00 23:00 Intake Total 600 ml 550 ml 120 ml Output Total 475 ml 525 ml 3 ml Balance 600 ml 75 ml -405 ml -3 ml Intake Oral 300 ml 120 ml IV Total 600 ml 250 ml Output Urine Total 475 ml 525 ml Stool Total 3 ml # Voids 1 2 # Bowel Movements 3 2 Imaging Last Impressions Ribs X-Ray 01/10/17 0000 Signed Impressions: Service Date/Time: Tuesday, January 10, 2017 10:47 - CONCLUSION: No acute rib fracture is identified. Vidal Valentine MD Chest X-Ray 01/10/17 0000 Signed Impressions: Service Date/Time: Tuesday, January 10, 2017 14:17 - CONCLUSION: More Midinspiratory exam with apparent atelectasis at the lung bases. Saman Mina MD Laboratory Test 01/11/17 05:17 White Blood Count 12.0 TH/MM3 Red Blood Count 3.45 MIL/MM3 Hemoglobin 11.4 GM/DL Hematocrit 34.3 % Mean Corpuscular Volume 99.6 FL Mean Corpuscular Hemoglobin 33.0 PG Mean Corpuscular Hemoglobin Concent 33.2 % Red Cell Distribution Width 13.5 % Platelet Count 263 TH/MM3 Mean Platelet Volume 7.4 FL Neutrophils (%) (Auto) 92.8 % Lymphocytes (%) (Auto) 3.9 % Monocytes (%) (Auto) 3.1 % Eosinophils (%) (Auto) 0.2 % Basophils (%) (Auto) 0.0 % Neutrophils # (Auto) 11.1 TH/MM3 Lymphocytes # (Auto) 0.5 TH/MM3 Monocytes # (Auto) 0.4 TH/MM3 Eosinophils # (Auto) 0.0 TH/MM3 Basophils # (Auto) 0.0 TH/MM3 CBC Comment DIFF FINAL Differential Comment Blood Urea Nitrogen 15 MG/DL Creatinine 0.64 MG/DL Random Glucose 164 MG/DL Calcium Level 8.0 MG/DL Sodium Level 138 MEQ/L Potassium Level 3.6 MEQ/L Chloride Level 108 MEQ/L Carbon Dioxide Level 20.7 MEQ/L Anion Gap 9 MEQ/L Estimat Glomerular Filtration Rate 124 ML/MIN Free Thyroxine 0.81 NG/DL Free Triiodothyronine (T3) pg/dL 1.42 PG/ML Physical Examination HEENT: PERRL; normocephalic; atraumatic; no jaundice. CHEST: CTA ABDOMEN: Soft, nondistended, nontender; no hepatosplenomegaly; bowel sounds are present in all four quadrants. EXTREMITIES: No clubbing, cyanosis, or edema. SKIN: Normal; no rash; no jaundice. 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 (Belinda Jensen) Assessment and Plan Plan ASSESSMENT - diarrhea - pos c diff. 3-4 episodes loose stool daily. no pain, n/v. hx c diff 06/2016. recent and ongoing abx use . on flagyl - COPD exacerbation, recent PE on xarelto, ETOH withdrawal- per primary PLAN - start vanc 125mg QID for 10d - continue flagyl - TRICIA - supportive care THis pt seen by myself and Dr Wilder and this note is written on his behalf (Belinda Jensen) Physician Comments Patient seen and examined Agree with above Continue with current supportive care Monitor labs Add vancomycin orally Consider discontinuing azithromycin (Carlos Wilder MD) Belinda Jensen Jan 11, 2017 16:11 Carlos Wilder MD Jan 11, 2017 20:24
[2017-01-11] MEDS: VANCOMYCIN 500 MG VIAL (FOR ORAL USE ONLY) PO SCH ×2 (17:27→21:15)
[2017-01-11] MEDS: METOPROLOL TARTRATE 50 MG TAB PO SCH (21:14)
[2017-01-11] MEDS: ATORVASTATIN 20 MG TAB PO SCH (21:15)
[2017-01-12] VITALS (10 sets, daily range): BP systolic 137–164; BP diastolic 85–107; PULSE 102–125; RESP 18–22; TEMP 96.3–98.7; O2SAT 92–99
[2017-01-12] MEDS: RESP: ALBUTEROL 2.5 MG/IPRATROPIUM 0.5 MG NEB (SCH) NEB ×6 (03:18→23:24)
[2017-01-12] MEDS: methylPREDNISolone SOD SUCC 40 MG/1 ML VIAL IV PUSH SCH ×3 (05:03→20:25)
[2017-01-12] MEDS: ACETAMINOPHEN/HYDROcodone 325 MG/5 MG TAB PO PRN ×3 (05:04→22:52)
--- NOTE | 2017-01-12 07:00 | HHI.PR ---
Subjective Remarks His breathing is stable. Still has diarrhea. Objective Vitals Vital Signs Date Time Temp Pulse Resp B/P (MAP) Pulse Ox O2 Delivery O2 Flow Rate FiO2 01/12/17 04:00 97.1 115 18 155/107 (123) 94 01/12/17 00:00 96.4 104 18 161/101 (121) 96 01/11/17 22:00 114 01/11/17 20:00 96 Nasal Cannula 2.00 01/11/17 20:00 96.2 117 18 167/91 (116) 95 01/11/17 16:00 98.5 107 22 176/102 (126) 96 01/11/17 12:50 108 01/11/17 12:00 98.7 105 18 162/102 (122) 96 01/11/17 08:10 132 01/11/17 08:00 98.0 112 20 182/101 (128) 96 01/11/17 07:52 96 Nasal Cannula 2.00 Result Diagram: 01/11/1751601/11/17516 Other Results Laboratory Tests Test 01/10/17 10:30 01/10/17 15:15 01/11/17 05:17 White Blood Count 14.1 TH/MM3 12.0 TH/MM3 Red Blood Count 3.45 MIL/MM3 3.45 MIL/MM3 Hemoglobin 11.4 GM/DL 11.4 GM/DL Hematocrit 34.4 % 34.3 % Mean Corpuscular Volume 99.6 FL 99.6 FL Mean Corpuscular Hemoglobin 32.9 PG 33.0 PG Mean Corpuscular Hemoglobin Concent 33.1 % 33.2 % Red Cell Distribution Width 13.9 % 13.5 % Platelet Count 314 TH/MM3 263 TH/MM3 Mean Platelet Volume 6.5 FL 7.4 FL Neutrophils (%) (Auto) 83.9 % 92.8 % Lymphocytes (%) (Auto) 7.6 % 3.9 % Monocytes (%) (Auto) 7.4 % 3.1 % Eosinophils (%) (Auto) 0.5 % 0.2 % Basophils (%) (Auto) 0.6 % 0.0 % Neutrophils # (Auto) 11.8 TH/MM3 11.1 TH/MM3 Lymphocytes # (Auto) 1.1 TH/MM3 0.5 TH/MM3 Monocytes # (Auto) 1.0 TH/MM3 0.4 TH/MM3 Eosinophils # (Auto) 0.1 TH/MM3 0.0 TH/MM3 Basophils # (Auto) 0.1 TH/MM3 0.0 TH/MM3 CBC Comment AUTO DIFF DIFF FINAL Differential Total Cells Counted 100 Neutrophils % (Manual) 71 % Band Neutrophils % 15 % Lymphocytes % 7 % Monocytes % 6 % Eosinophils % 1 % Neutrophils # (Manual) 12.1 TH/MM3 Differential Comment FINAL DIFF MANUAL Platelet Estimate NORMAL Platelet Morphology Comment NORMAL Red Cell Morphology Comment NORMAL Blood Urea Nitrogen 12 MG/DL 15 MG/DL Creatinine 0.71 MG/DL 0.64 MG/DL Random Glucose 91 MG/DL 164 MG/DL Calcium Level 8.0 MG/DL 8.0 MG/DL Sodium Level 144 MEQ/L 138 MEQ/L Potassium Level 3.4 MEQ/L 3.6 MEQ/L Chloride Level 114 MEQ/L 108 MEQ/L Carbon Dioxide Level 19.3 MEQ/L 20.7 MEQ/L Anion Gap 11 MEQ/L 9 MEQ/L Estimat Glomerular Filtration Rate 110 ML/MIN 124 ML/MIN Thyroid Stimulating Hormone 3rd Gen 0.074 uIU/ML Ethyl Alcohol Level 83 MG/DL Stool C. difficile Toxin (PCR) POSITIVE Stl C. difficile Toxin Epiderm 027 PRESUMPTIVE POSITIVE Free Thyroxine 0.81 NG/DL Free Triiodothyronine (T3) pg/dL 1.42 PG/ML Lab today pending. Imaging Last Impressions Ribs X-Ray 01/10/17 0000 Signed Impressions: Service Date/Time: Tuesday, January 10, 2017 10:47 - CONCLUSION: No acute rib fracture is identified. Vidal Valentine MD Chest X-Ray 01/10/17 0000 Signed Impressions: Service Date/Time: Tuesday, January 10, 2017 14:17 - CONCLUSION: More Midinspiratory exam with apparent atelectasis at the lung bases. Saman Mina MD Objective Remarks Exam: Pleasant white male in no distress. HEENT: Pupils equal, no scleral icterus, mouth negative Neck: No JVD Heart: Regular rhythm with slight tachycardia Lungs: Distant breath sounds but no wheezing Abdomen: Soft, nontender Chest: felt tipping machine tender left lower anterolateral chest wall Extremities: No edema Neuro: Alert, oriented, no focal findings A/P Assessment and Plan Assessent: --COPD exacerbation--improving and stable --C. difficile colitis --Fall with contusion left lower chest wall --Hypertension --Peripheral artery disease with prior vascular procedures --Minimal alcohol withdrawal --Recent pulmonary embolism (on Xarelto) Plan: Continue nebulizer treatment, steroids. He was started on Flagyl po yesterday and GI consulted for his C. difficile colitis. I will order physical therapy evaluation today and try to ambulate him. Continue Lorazepam as needed. Continue on Xarelto for his recent PE. Stop Zithromax Add Cardizem CD 120mg daily for hypertension and heart rate control. Ephraim Chapman MD Jan 12, 2017 07:00
[2017-01-12 08:42] LABS: AUTOMATED NEUTROPHIL # 11.8 TH/MM3 (1.8-7.7); BASOPHIL # 0.1 TH/MM3 (0-0.2); BASOPHIL % 0.6 % (0.0-2.0); HEMATOCRIT 38.7 % (39.0-51.0); LYMPH % 3.4 % (9.0-44.0); LYMPHOCYTE # 0.4 TH/MM3 (1.0-4.8); MEAN CELL VOLUME 99.9 FL (80.0-100.0); MEAN CORPUSCULAR HEMOGLOBIN 33.4 PG (27.0-34.0); MEAN CORPUSCULAR HGB CONC 33.4 % (32.0-36.0); MONO % 5.1 % (0.0-8.0); NEUT % 90.9 % (16.0-70.0); PLATELET COUNT 307 TH/MM3 (150-450); RED BLOOD COUNT 3.87 MIL/MM3 (4.50-5.90); RED CELL DISTRIBUTION WIDTH 13.7 % (11.6-17.2)
[2017-01-12 08:44] LABS: HEMO FLAGS DIFF FINAL
[2017-01-12 08:57] LABS: POTASSIUM 3.5 MEQ/L (3.5-5.1)
[2017-01-12] MEDS: metroNIDAZOLE 500 MG TAB PO SCH ×3 (09:00→17:42)
[2017-01-12 09:02] LABS: BICARBONATE 21.6 MEQ/L (21.0-32.0)
[2017-01-12] MEDS: VANCOMYCIN 500 MG VIAL (FOR ORAL USE ONLY) PO SCH ×4 (09:29→20:24)
[2017-01-12] MEDS: FOLIC ACID 1 MG TAB PO SCH (09:29)
[2017-01-12] MEDS: METOPROLOL TARTRATE 50 MG TAB PO SCH ×2 (09:29→20:23)
[2017-01-12] MEDS: RIVAROXABAN 15 MG TAB PO SCH ×2 (09:30→17:42)
[2017-01-12] MEDS: DILTIAZEM-CD 120 MG CAP ER PO SCH (09:30)
[2017-01-12] MEDS: MULTIVITAMINS/MINERALS THERAPEUTIC TAB PO SCH (09:30)
[2017-01-12] MEDS: LISINOPRIL 20 MG TAB PO SCH ×2 (09:30→20:24)
[2017-01-12] MEDS: SODIUM CHLORIDE 0.9% FLUSH 10 ML FLUSH IV FLUSH SCH ×2 (09:30→20:24)
--- NOTE | 2017-01-12 11:01 | HHI.GIFU ---
Subjective Remarks Laying in bed, seemed to be comfortable, had 4 bowel movements since last night , he stated that it's more formed than before Objective Vitals I&O Vital Signs Date Time Temp Pulse Resp B/P (MAP) Pulse Ox O2 Delivery O2 Flow Rate FiO2 01/12/17 08:28 92 Nasal Cannula 2.00 01/12/17 08:00 96.3 110 21 164/100 (121) 95 01/12/17 04:00 97.1 115 18 155/107 (123) 94 01/12/17 00:00 96.4 104 18 161/101 (121) 96 01/11/17 22:00 114 01/11/17 20:00 96 Nasal Cannula 2.00 01/11/17 20:00 96.2 117 18 167/91 (116) 95 01/11/17 16:00 98.5 107 22 176/102 (126) 96 01/11/17 12:50 108 01/11/17 12:00 98.7 105 18 162/102 (122) 96 I/O 01/11/17 01/11/17 01/11/17 01/12/17 01/12/17 01/12/17 07:00 15:00 23:00 07:00 15:00 23:00 Intake Total 120 ml 1200 ml 240 ml Output Total 525 ml 3 ml 450 ml Balance -405 ml -3 ml 1200 ml -210 ml Intake Oral 120 ml 1200 ml 240 ml Output Urine Total 525 ml 450 ml Stool Total 3 ml # Voids 2 4 1 # Bowel Movements 2 6 3 Laboratory Laboratory Tests Test 01/12/17 08:26 White Blood Count 13.0 Red Blood Count 3.87 Hemoglobin 12.9 Hematocrit 38.7 Mean Corpuscular Volume 99.9 Mean Corpuscular Hemoglobin 33.4 Mean Corpuscular Hemoglobin Concent 33.4 Red Cell Distribution Width 13.7 Platelet Count 307 Mean Platelet Volume 7.3 Neutrophils (%) (Auto) 90.9 Lymphocytes (%) (Auto) 3.4 Monocytes (%) (Auto) 5.1 Eosinophils (%) (Auto) 0.0 Basophils (%) (Auto) 0.6 Neutrophils # (Auto) 11.8 Lymphocytes # (Auto) 0.4 Monocytes # (Auto) 0.7 Eosinophils # (Auto) 0.0 Basophils # (Auto) 0.1 CBC Comment DIFF FINAL Differential Comment Blood Urea Nitrogen 15 Creatinine 0.72 Random Glucose 170 Calcium Level 8.2 Sodium Level 138 Potassium Level 3.5 Chloride Level 106 Carbon Dioxide Level 21.6 Anion Gap 10 Estimat Glomerular Filtration Rate 108 Physical Exam HEENT: Pupils round and reactive to light; normocephalic; atraumatic; no jaundice. Throat is clear. NECK: Neck is supple, no JVD, no lymphadenopathy. CHEST: Chest is clear to auscultation and percussion. CARDIAC: Regular rate and rhythm with no murmur gallop or rubs. ABDOMEN: Soft, nondistended, mild diffuse tenderness; no hepatosplenomegaly; bowel sounds are present in all four quadrants. EXTREMITIES: No clubbing, cyanosis, or edema. SKIN: Normal; no rash; no jaundice. 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 Assessment and Plan Plan ASSESSMENT - diarrhea - pos c diff. 3-4 episodes loose stool daily. no pain, n/v. hx c diff 06/2016. recent and ongoing abx use . on flagyl - COPD exacerbation, recent PE on xarelto, ETOH withdrawal- per primary 01/12/2017 patient is laying in bed comfortably still having some loose stool and diarrhea but better than yesterday, mild abdominal discomfort less pain PLAN - Continue vanc 125mg QID for 10d - continue flagyl - TRICIA - supportive care Hyacinth Asencio MD Jan 12, 2017 11:01
[2017-01-12] MEDS: AZITHROMYCIN INJ 500 MG in SODIUM CHLOR 0.9% 250 ML INJ 250 ML IV SCH (13:44)
[2017-01-12] MEDS: THIAMINE INJ 100 MG in SODIUM CHLORIDE 0.9% INJ 100 ML IV SCH (15:00)
[2017-01-12] MEDS: ATORVASTATIN 20 MG TAB PO SCH (20:23)
[2017-01-12] MEDS: LORazepam 1 MG TAB PO PRN (22:51)
[2017-01-13] VITALS (9 sets, daily range): BP systolic 119–146; BP diastolic 76–93; PULSE 103–112; RESP 16–22; TEMP 96.7–100.2; O2SAT 93–95
[2017-01-13] MEDS: RESP: ALBUTEROL 2.5 MG/IPRATROPIUM 0.5 MG NEB (SCH) NEB ×5 (03:06→19:46)
[2017-01-13] MEDS: methylPREDNISolone SOD SUCC 40 MG/1 ML VIAL IV PUSH SCH ×2 (05:26→14:10)
--- NOTE | 2017-01-13 06:39 | HHI.PR ---
Subjective Remarks No diarrhea during the night so it is beginning to decrease. He states his breathing is stable. He states he is getting stronger. Objective Vitals Vital Signs Date Time Temp Pulse Resp B/P (MAP) Pulse Ox O2 Delivery O2 Flow Rate FiO2 01/13/17 04:23 20 01/13/17 03:57 98.2 111 22 132/88 (103) 95 01/13/17 00:00 100.2 108 22 136/90 (105) 94 01/13/17 00:00 94 Nasal Cannula 2.00 01/12/17 20:23 122 01/12/17 20:00 98.7 125 20 141/86 (104) 99 01/12/17 19:43 93 Nasal Cannula 2.00 01/12/17 17:46 22 01/12/17 16:00 96.9 106 20 137/85 (102) 94 01/12/17 12:00 96.5 102 22 144/87 (106) 95 01/12/17 11:43 96 Nasal Cannula 2.00 01/12/17 08:28 92 Nasal Cannula 2.00 01/12/17 08:00 96.3 110 21 164/100 (121) 95 Result Diagram: 01/12/17 0826 01/12/17 0826 Other Results Laboratory Tests Test 01/12/17 08:26 White Blood Count 13.0 TH/MM3 Red Blood Count 3.87 MIL/MM3 Hemoglobin 12.9 GM/DL Hematocrit 38.7 % Mean Corpuscular Volume 99.9 FL Mean Corpuscular Hemoglobin 33.4 PG Mean Corpuscular Hemoglobin Concent 33.4 % Red Cell Distribution Width 13.7 % Platelet Count 307 TH/MM3 Mean Platelet Volume 7.3 FL Neutrophils (%) (Auto) 90.9 % Lymphocytes (%) (Auto) 3.4 % Monocytes (%) (Auto) 5.1 % Eosinophils (%) (Auto) 0.0 % Basophils (%) (Auto) 0.6 % Neutrophils # (Auto) 11.8 TH/MM3 Lymphocytes # (Auto) 0.4 TH/MM3 Monocytes # (Auto) 0.7 TH/MM3 Eosinophils # (Auto) 0.0 TH/MM3 Basophils # (Auto) 0.1 TH/MM3 CBC Comment DIFF FINAL Differential Comment Blood Urea Nitrogen 15 MG/DL Creatinine 0.72 MG/DL Random Glucose 170 MG/DL Calcium Level 8.2 MG/DL Sodium Level 138 MEQ/L Potassium Level 3.5 MEQ/L Chloride Level 106 MEQ/L Carbon Dioxide Level 21.6 MEQ/L Anion Gap 10 MEQ/L Estimat Glomerular Filtration Rate 108 ML/MIN Lab today still pending. Imaging Last Impressions Ribs X-Ray 01/10/17 0000 Signed Impressions: Service Date/Time: Tuesday, January 10, 2017 10:47 - CONCLUSION: No acute rib fracture is identified. Vidal Valentine MD Chest X-Ray 01/10/17 0000 Signed Impressions: Service Date/Time: Tuesday, January 10, 2017 14:17 - CONCLUSION: More Midinspiratory exam with apparent atelectasis at the lung bases. Saman Mina MD Objective Remarks Exam: Pleasant white male in no distress. HEENT: Pupils equal, no scleral icterus, mouth negative Neck: No JVD Heart: Regular rhythm with slight tachycardia Lungs: Distant breath sounds but no wheezing Abdomen: Soft, nontender Chest: scooping machine tender left lower anterolateral chest wall Extremities: No edema Neuro: Alert, oriented, no focal findings A/P Assessment and Plan Assessent: --COPD exacerbation--improving and stable --C. difficile colitis--diarrhea starting to slow down --Fall with contusion left lower chest wall --Hypertension-better controlled --Peripheral artery disease with prior vascular procedures --Minimal alcohol withdrawal--stable --Recent pulmonary embolism (on Xarelto) Plan: Continue nebulizer treatment, steroids. Continue Flagyl and Vancomycin for his C. difficile colitis Continue Lorazepam as needed. Continue on Xarelto for his recent PE Ephraim Chapman MD Jan 13, 2017 06:39
[2017-01-13 06:55] LABS: AUTOMATED NEUTROPHIL # 17.2 TH/MM3 (1.8-7.7); HEMATOCRIT 35.2 % (39.0-51.0); LYMPH % 2.6 % (9.0-44.0); LYMPHOCYTE # 0.5 TH/MM3 (1.0-4.8); MEAN CELL VOLUME 100.6 FL (80.0-100.0); MEAN CORPUSCULAR HEMOGLOBIN 32.5 PG (27.0-34.0); MEAN CORPUSCULAR HGB CONC 32.3 % (32.0-36.0); MONO % 5.1 % (0.0-8.0); NEUT % 92.3 % (16.0-70.0); PLATELET COUNT 298 TH/MM3 (150-450); RED CELL DISTRIBUTION WIDTH 13.8 % (11.6-17.2); WHITE BLOOD COUNT 18.6 TH/MM3 (4.0-11.0)
[2017-01-13 06:57] LABS: POTASSIUM 3.5 MEQ/L (3.5-5.1)
[2017-01-13 07:02] LABS: BICARBONATE 23.7 MEQ/L (21.0-32.0)
[2017-01-13 07:05] LABS: HEMO FLAGS AUTO DIFF
[2017-01-13 07:51] LABS: BANDS 32 % (0-6); METAMYELOCYTES 1 % (0-1); NEUTROPHIL # MANUAL DIFF 18.2 TH/MM3 (1.8-7.7); POLYS (SEG NEUTROPHILS) 65 % (16-70); WBC DIFF SAMPLE 100
[2017-01-13 07:52] LABS: PLATELET ESTIMATE SMEAR NORMAL (NORMAL); PLATELET MORPHOLOGY NORMAL (NORMAL); SCAN/DIFF FINAL DIFF MANUAL
[2017-01-13] MEDS: MULTIVITAMINS/MINERALS THERAPEUTIC TAB PO SCH (10:22)
[2017-01-13] MEDS: LISINOPRIL 20 MG TAB PO SCH ×2 (10:22→20:59)
[2017-01-13] MEDS: RIVAROXABAN 15 MG TAB PO SCH ×2 (10:22→18:16)
[2017-01-13] MEDS: FOLIC ACID 1 MG TAB PO SCH (10:22)
[2017-01-13] MEDS: METOPROLOL TARTRATE 50 MG TAB PO SCH ×2 (10:22→20:59)
[2017-01-13] MEDS: DILTIAZEM-CD 120 MG CAP ER PO SCH (10:22)
[2017-01-13] MEDS: SODIUM CHLORIDE 0.9% FLUSH 10 ML FLUSH IV FLUSH SCH ×2 (10:22→21:00)
[2017-01-13] MEDS: metroNIDAZOLE 500 MG TAB PO SCH ×3 (10:23→18:16)
[2017-01-13] MEDS: VANCOMYCIN 500 MG VIAL (FOR ORAL USE ONLY) PO SCH ×4 (10:23→21:00)
[2017-01-13] MEDS: AZITHROMYCIN INJ 500 MG in SODIUM CHLOR 0.9% 250 ML INJ 250 ML IV SCH (14:11)
--- NOTE | 2017-01-13 20:09 | HHI.GIFU ---
Subjective Remarks Comfortable in bed no complaints and no bowel movements today Objective Vitals I&O Vital Signs Date Time Temp Pulse Resp B/P (MAP) Pulse Ox O2 Delivery O2 Flow Rate FiO2 01/13/17 16:00 97.1 108 18 119/76 (90) 95 01/13/17 12:00 96.7 112 19 130/84 (99) 93 01/13/17 11:50 Nasal Cannula 2.00 21 01/13/17 08:00 98.7 103 18 146/93 (110) 95 01/13/17 07:49 93 Nasal Cannula 2.00 01/13/17 04:23 20 01/13/17 03:57 98.2 111 22 132/88 (103) 95 01/13/17 00:00 100.2 108 22 136/90 (105) 94 01/13/17 00:00 94 Nasal Cannula 2.00 01/12/17 20:23 122 I/O 01/12/17 01/12/17 01/12/17 01/13/17 01/13/17 01/13/17 07:00 15:00 23:00 07:00 15:00 23:00 Intake Total 240 ml 400 ml 800 ml 860 ml 250 ml Output Total 450 ml 200 ml 200 ml 300 ml Balance -210 ml 400 ml 600 ml -200 ml 560 ml 250 ml Intake Oral 240 ml 400 ml 800 ml 860 ml IV Total 250 ml Output Urine Total 450 ml 200 ml 200 ml 300 ml # Voids 1 5 1 # Bowel Movements 3 5 1 Laboratory Laboratory Tests Test 01/13/17 05:22 White Blood Count 18.6 Red Blood Count 3.50 Hemoglobin 11.4 Hematocrit 35.2 Mean Corpuscular Volume 100.6 Mean Corpuscular Hemoglobin 32.5 Mean Corpuscular Hemoglobin Concent 32.3 Red Cell Distribution Width 13.8 Platelet Count 298 Mean Platelet Volume 7.9 Neutrophils (%) (Auto) 92.3 Lymphocytes (%) (Auto) 2.6 Monocytes (%) (Auto) 5.1 Eosinophils (%) (Auto) 0.0 Basophils (%) (Auto) 0.0 Neutrophils # (Auto) 17.2 Lymphocytes # (Auto) 0.5 Monocytes # (Auto) 0.9 Eosinophils # (Auto) 0.0 Basophils # (Auto) 0.0 CBC Comment AUTO DIFF Differential Total Cells Counted 100 Neutrophils % (Manual) 65 Band Neutrophils % 32 Lymphocytes % 1 Monocytes % 1 Neutrophils # (Manual) 18.2 Metamyelocytes 1 Differential Comment FINAL DIFF MANUAL Platelet Estimate NORMAL Platelet Morphology Comment NORMAL Red Cell Morphology Comment NORMAL Blood Urea Nitrogen 16 Creatinine 0.62 Random Glucose 151 Calcium Level 7.8 Sodium Level 141 Potassium Level 3.5 Chloride Level 108 Carbon Dioxide Level 23.7 Anion Gap 9 Estimat Glomerular Filtration Rate 128 Physical Exam HEENT: Normocephalic and atraumatic NECK: Neck is supple CHEST: Chest is clear to auscultation and percussion. CARDIAC: Regular rate and rhythm with no murmur gallop or rubs. ABDOMEN: Soft, nondistended, mild diffuse tenderness; no hepatosplenomegaly; bowel sounds are present in all four quadrants. EXTREMITIES: No clubbing, cyanosis, or edema. SKIN: Normal; no rash; no jaundice. 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 Assessment and Plan Plan ASSESSMENT - diarrhea - pos c diff. 3-4 episodes loose stool daily. no pain, n/v. hx c diff 06/2016. recent and ongoing abx use . on flagyl - COPD exacerbation, recent PE on xarelto, ETOH withdrawal- per primary 01/12/2017 patient is laying in bed comfortably still having some loose stool and diarrhea but better than yesterday, mild abdominal discomfort less pain PLAN - Continue vanc 125mg QID for 10d post discharge - continue flagyl also Flagyl 500 3 times a day for 10 days post discharge - TRICIA -Okay for discharge from a GI standpoint follow-up with GI post discharge Carlos Wilder MD Jan 13, 2017 20:09
[2017-01-13] MEDS: ATORVASTATIN 20 MG TAB PO SCH (20:59)
[2017-01-13] MEDS: ACETAMINOPHEN/HYDROcodone 325 MG/5 MG TAB PO PRN (21:11)
[2017-01-14] VITALS (10 sets, daily range): BP systolic 131–151; BP diastolic 75–98; PULSE 82–121; RESP 16–24; TEMP 97.3–98.9; O2SAT 91–96
[2017-01-14] MEDS: RESP: ALBUTEROL 2.5 MG/IPRATROPIUM 0.5 MG NEB (SCH) NEB ×6 (00:57→21:04)
[2017-01-14 06:34] LABS: AUTOMATED NEUTROPHIL # 19.8 TH/MM3 (1.8-7.7); HEMATOCRIT 34.3 % (39.0-51.0); LYMPH % 3.7 % (9.0-44.0); LYMPHOCYTE # 0.8 TH/MM3 (1.0-4.8); MEAN CELL VOLUME 100.8 FL (80.0-100.0); MEAN CORPUSCULAR HEMOGLOBIN 33.2 PG (27.0-34.0); MONO % 4.6 % (0.0-8.0); NEUT % 91.7 % (16.0-70.0); PLATELET COUNT 287 TH/MM3 (150-450); RED CELL DISTRIBUTION WIDTH 13.5 % (11.6-17.2); WHITE BLOOD COUNT 21.6 TH/MM3 (4.0-11.0)
[2017-01-14 06:55] LABS: HEMO FLAGS AUTO DIFF
[2017-01-14 07:30] LABS: BANDS 15 % (0-6); NEUTROPHIL # MANUAL DIFF 20.3 TH/MM3 (1.8-7.7); PLATELET ESTIMATE SMEAR NORMAL (NORMAL); PLATELET MORPHOLOGY NORMAL (NORMAL); POLYS (SEG NEUTROPHILS) 79 % (16-70); SCAN/DIFF FINAL DIFF MANUAL; WBC DIFF SAMPLE 100
[2017-01-14] MEDS: FOLIC ACID 1 MG TAB PO SCH (08:28)
[2017-01-14] MEDS: DILTIAZEM-CD 120 MG CAP ER PO SCH (08:28)
[2017-01-14] MEDS: predniSONE 20 MG TAB PO SCH (08:28)
[2017-01-14] MEDS: MULTIVITAMINS/MINERALS THERAPEUTIC TAB PO SCH (08:28)
[2017-01-14] MEDS: LISINOPRIL 20 MG TAB PO SCH ×2 (08:28→20:38)
[2017-01-14] MEDS: metroNIDAZOLE 500 MG TAB PO SCH ×3 (08:28→18:31)
[2017-01-14] MEDS: RIVAROXABAN 15 MG TAB PO SCH ×2 (08:28→18:32)
[2017-01-14] MEDS: METOPROLOL TARTRATE 50 MG TAB PO SCH ×2 (08:29→20:37)
[2017-01-14] MEDS: VANCOMYCIN 500 MG VIAL (FOR ORAL USE ONLY) PO SCH ×4 (08:29→20:38)
[2017-01-14] MEDS: SODIUM CHLORIDE 0.9% FLUSH 10 ML FLUSH IV FLUSH SCH ×2 (08:29→20:37)
[2017-01-14] MEDS: THIAMINE HCL 100 MG TAB PO SCH (08:29)
--- NOTE | 2017-01-14 10:24 | HHI.PR ---
Subjective Remarks He states his diarrhea is much better. His breathing is stable. Still has a sore chest wall. Objective Vitals Vital Signs Date Time Temp Pulse Resp B/P (MAP) Pulse Ox O2 Delivery O2 Flow Rate FiO2 01/14/17 09:06 91 Nasal Cannula 2.00 01/14/17 08:00 97.3 121 24 143/98 (113) 91 01/14/17 07:43 92 Nasal Cannula 2.00 01/14/17 04:00 98.1 95 16 151/96 (114) 95 01/14/17 00:00 98.9 92 16 142/91 (108) 94 01/13/17 21:00 94 Nasal Cannula 2.00 21 01/13/17 20:00 108 01/13/17 20:00 97.8 104 16 141/85 (103) 01/13/17 19:46 93 Nasal Cannula 2.00 01/13/17 16:00 97.1 108 18 119/76 (90) 95 01/13/17 12:00 96.7 112 19 130/84 (99) 93 01/13/17 11:50 Nasal Cannula 2.00 21 Result Diagram: 01/14/17 0455 01/13/17 0522 Other Results Laboratory Tests Test 01/13/17 05:22 01/14/17 04:55 White Blood Count 18.6 TH/MM3 21.6 TH/MM3 Red Blood Count 3.50 MIL/MM3 3.40 MIL/MM3 Hemoglobin 11.4 GM/DL 11.3 GM/DL Hematocrit 35.2 % 34.3 % Mean Corpuscular Volume 100.6 FL 100.8 FL Mean Corpuscular Hemoglobin 32.5 PG 33.2 PG Mean Corpuscular Hemoglobin Concent 32.3 % 33.0 % Red Cell Distribution Width 13.8 % 13.5 % Platelet Count 298 TH/MM3 287 TH/MM3 Mean Platelet Volume 7.9 FL 7.7 FL Neutrophils (%) (Auto) 92.3 % 91.7 % Lymphocytes (%) (Auto) 2.6 % 3.7 % Monocytes (%) (Auto) 5.1 % 4.6 % Eosinophils (%) (Auto) 0.0 % 0.0 % Basophils (%) (Auto) 0.0 % 0.0 % Neutrophils # (Auto) 17.2 TH/MM3 19.8 TH/MM3 Lymphocytes # (Auto) 0.5 TH/MM3 0.8 TH/MM3 Monocytes # (Auto) 0.9 TH/MM3 1.0 TH/MM3 Eosinophils # (Auto) 0.0 TH/MM3 0.0 TH/MM3 Basophils # (Auto) 0.0 TH/MM3 0.0 TH/MM3 CBC Comment AUTO DIFF AUTO DIFF Differential Total Cells Counted 100 100 Neutrophils % (Manual) 65 % 79 % Band Neutrophils % 32 % 15 % Lymphocytes % 1 % 4 % Monocytes % 1 % 2 % Neutrophils # (Manual) 18.2 TH/MM3 20.3 TH/MM3 Metamyelocytes 1 % Differential Comment FINAL DIFF MANUAL FINAL DIFF MANUAL Platelet Estimate NORMAL NORMAL Platelet Morphology Comment NORMAL NORMAL Red Cell Morphology Comment NORMAL NORMAL Blood Urea Nitrogen 16 MG/DL Creatinine 0.62 MG/DL Random Glucose 151 MG/DL Calcium Level 7.8 MG/DL Sodium Level 141 MEQ/L Potassium Level 3.5 MEQ/L Chloride Level 108 MEQ/L Carbon Dioxide Level 23.7 MEQ/L Anion Gap 9 MEQ/L Estimat Glomerular Filtration Rate 128 ML/MIN Imaging Last Impressions Ribs X-Ray 01/10/17 0000 Signed Impressions: Service Date/Time: Tuesday, January 10, 2017 10:47 - CONCLUSION: No acute rib fracture is identified. Vidal Valentine MD Chest X-Ray 01/10/17 0000 Signed Impressions: Service Date/Time: Tuesday, January 10, 2017 14:17 - CONCLUSION: More Midinspiratory exam with apparent atelectasis at the lung bases. Saman Mina MD Objective Remarks Exam: Pleasant white male in no distress. 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 difficile colitis--diarrhea starting to slow down --Increasing WBC-- will consult infectious disease. Will order a chest x-ray just to be certain no pneumonia in view of his chest wall injury and potential for atelectasis and pneumonia due to his COPD --Fall with contusion left lower chest wall --Hypertension-better controlled --Peripheral artery disease with prior vascular procedures --Minimal alcohol withdrawal--stable --Recent pulmonary embolism (on Xarelto) Plan: Continue nebulizer treatment, steroids. Continue Flagyl and Vancomycin for his C. difficile colitis Continue Lorazepam as needed. Continue on Xarelto for his recent PE Consult ID Chest x-ray Ephraim Chapman MD Jan 14, 2017 10:24
--- NOTE | 2017-01-14 12:52 | HHI.GIFU ---
Subjective Remarks General sitting in chair, he said that he did not have any bowel movement today and the last bowel movement was solid, no abdominal pain Objective Vitals I&O Vital Signs Date Time Temp Pulse Resp B/P (MAP) Pulse Ox O2 Delivery O2 Flow Rate FiO2 01/14/17 11:58 97.8 83 20 142/88 (106) 93 01/14/17 09:06 91 Nasal Cannula 2.00 01/14/17 08:00 97.3 121 24 143/98 (113) 91 01/14/17 07:43 92 Nasal Cannula 2.00 01/14/17 04:00 98.1 95 16 151/96 (114) 95 01/14/17 00:00 98.9 92 16 142/91 (108) 94 01/13/17 21:00 94 Nasal Cannula 2.00 21 01/13/17 20:00 108 01/13/17 20:00 97.8 104 16 141/85 (103) 01/13/17 19:46 93 Nasal Cannula 2.00 01/13/17 16:00 97.1 108 18 119/76 (90) 95 I/O 01/13/17 01/13/17 01/13/17 01/14/17 01/14/17 01/14/17 07:00 15:00 23:00 07:00 15:00 23:00 Intake Total 860 ml 250 ml 480 ml Output Total 200 ml 300 ml 600 ml Balance -200 ml 560 ml 250 ml -120 ml Intake Oral 860 ml 480 ml IV Total 250 ml Output Urine Total 200 ml 300 ml 600 ml # Voids 1 # Bowel Movements 1 Laboratory Laboratory Tests Test 01/14/17 04:55 White Blood Count 21.6 Red Blood Count 3.40 Hemoglobin 11.3 Hematocrit 34.3 Mean Corpuscular Volume 100.8 Mean Corpuscular Hemoglobin 33.2 Mean Corpuscular Hemoglobin Concent 33.0 Red Cell Distribution Width 13.5 Platelet Count 287 Mean Platelet Volume 7.7 Neutrophils (%) (Auto) 91.7 Lymphocytes (%) (Auto) 3.7 Monocytes (%) (Auto) 4.6 Eosinophils (%) (Auto) 0.0 Basophils (%) (Auto) 0.0 Neutrophils # (Auto) 19.8 Lymphocytes # (Auto) 0.8 Monocytes # (Auto) 1.0 Eosinophils # (Auto) 0.0 Basophils # (Auto) 0.0 CBC Comment AUTO DIFF Differential Total Cells Counted 100 Neutrophils % (Manual) 79 Band Neutrophils % 15 Lymphocytes % 4 Monocytes % 2 Neutrophils # (Manual) 20.3 Differential Comment FINAL DIFF MANUAL Platelet Estimate NORMAL Platelet Morphology Comment NORMAL Red Cell Morphology Comment NORMAL Physical Exam HEENT: Normocephalic and atraumatic NECK: Neck is supple CHEST: Chest is clear to auscultation and percussion. CARDIAC: Regular rate and rhythm with no murmur gallop or rubs. ABDOMEN: Soft, nondistended, no tenderness; no hepatosplenomegaly; bowel sounds are present in all four quadrants. EXTREMITIES: No clubbing, cyanosis, or edema. SKIN: Normal; no rash; no jaundice. ELEMENT BURNER: No focal deficits; alert and oriented times three. Assessment and Plan Plan ASSESSMENT - diarrhea - pos c diff. 3-4 episodes loose stool daily. no pain, n/v. hx c diff 06/2016. recent and ongoing abx use . on flagyl - COPD exacerbation, recent PE on xarelto, ETOH withdrawal- per primary 01/12/2017 patient is laying in bed comfortably still having some loose stool and diarrhea but better than yesterday, mild abdominal discomfort less pain 01/14/2017 patient is doing well, positive C. difficile but no diarrhea on antibiotic at this time PLAN - Continue vanc 125mg QID for 10d post discharge - continue flagyl also Flagyl 500 3 times a day for 10 days post discharge - TRICIA -Okay for discharge from a GI standpoint follow-up with GI post discharge Hyacinth Asencio MD Jan 14, 2017 12:52
--- NOTE | 2017-01-14 13:10 | MB ---
cc: MATTHEW CRUZ MD DATE OF CONSULTATION: 01/14/[address] Chapman. REASON FOR CONSULTATION Leukocytosis. C-difficile colitis. HISTORY OF PRESENT ILLNESS This is a 71-year-old white male who presented to emergency department after he fell at his home. The patient reportedly was drinking alcohol and got home and he fell and it is reported that he was short of breath and dizzy. The patient has a history of COPD. He also was noted to have diarrhea. After he was admitted to the hospital C. diff toxin was obtained and came back positive. The patient also had elevated white count of 14.1 on admission and heart rate was 120. He tells me that the diarrhea has improved and he had no diarrhea yesterday evening and none today. The prior day he had fall episodes. Currently he feels well and has ordered a sandwich for lunch because he feels like his appetite is better. The patient was in the hospital recently and was diagnosed with pulmonary embolism. He was admitted on December 23 and discharged on December 26. He was also treated with antibiotics for pneumonia. He was discharged with 5 days of antibiotics. He tells me that he had some diarrhea ever since he was discharged but it was never multiple bouts in one day. When he was in the hospital he was on cefepime and azithromycin. He was discharged on both azithromycin and cefuroxime for 5 days. PAST MEDICAL HISTORY 1. COPD. 2. Hyperlipidemia. 3. Hiatal hernia. 4. Arthritis. 5. Pulmonary embolism. 6. Hernia repair. 7. Bilateral hip replacement. 8. Vocal cord surgery. ALLERGIES NO KNOWN DRUG ALLERGIES. MEDICATIONS 1. Vancomycin oral. 2. Azithromycin. 3. Lopressor. 4. Cardizem. 5. Deltasone. 6. Vitamin D1. 7. Prinivil. 8. Lipitor. 9. Flagyl. 10. Xarelto. 11. DuoNeb. 12. Theragran. 13. [place] 5 p.r.n. 14. Folic acid. SOCIAL HISTORY Tobacco one pack of cigarettes a day. Positive alcohol use. No illicit drugs. FAMILY HISTORY Noncontributory. REVIEW OF SYSTEMS Pertinent as mentioned above in history of present illness. PHYSICAL EXAMINATION GENERAL: This is a well-developed male who is in no acute distress. He is awake and alert and oriented. VITAL SIGNS: Include temperature 97.8, BP 142/88, heart rate 83, respirations 20. HEENT: Extraocular movements grossly intact, pupils reactive to light. No icterus. Oropharynx no visible lesions. NECK: Supple without adenopathy. LUNGS: Basilar rhonchi bilateral. HEART: Regular rate and rhythm without murmurs or rubs or gallops. ABDOMEN: Bowel sounds are present, soft, nontender. RECTAL: Not performed. EXTREMITIES: No clubbing or cyanosis or edema. SKIN: Multiple ecchymotic lesions of the upper extremities. NEURO: No gross focal findings. PSYCHIATRIC: The patient is calm and cooperative. LABORATORY DATA WBC 21.6, platelets 287, hemoglobin 11.3, 15% bands, 79% neutrophils, creatinine 0.62, estimated GFR 128, sodium 141. IMPRESSION 1. C-difficile colitis in a patient who has recently been on antibiotics. 2. Lung infiltrates, likely secondary to aspiration in a patient who sustained a rib fracture on the left and has pain and has leukocytosis. The patient also has history of COPD. 3. Leukocytosis. I think that the leukocytosis is very likely related to the C-difficile but could also be due to pneumonia as well. I would expect that the elevation of white blood cell count will plateau and then start to improve while receiving the treatment for the C-difficile. RECOMMENDATIONS 1. Continue Flagyl and vancomycin for C-difficile in this patient who probably has a past history of C-difficile, although he cannot give accurate information regarding that. 2. Continue azithromycin. 3. Follow the chest x-ray. Consideration can be given to stop the azithromycin if the chest x-ray shows improvement. 4. Monitor white blood cell count. Thank you for this consultation. Further recommendations will be given upon followup of the patient. Matthew Cruz MD FD/BILL /12:20 PM /12:44 PM
--- NOTE | 2017-01-14 13:57 | RADRPT ---
EXAM DATE/TIME: 01/14/2017 10:59 [facility] COMPARISON: CHEST PA & LAT, January 10, 2017, 14:17. INDICATIONS : COPD. Elevated white blood cells. MEDICAL HISTORY : Hypercholesterolemia. Hypertension. Gastroesophageal reflux disease.Hyperthyroid. Head trauma. Numbne ss. Peripheral vascular disease. COPD. Dyspnea. Hiatal hernia. Arthritis. Skin cancer. Clostridium di fficle. SURGICAL HISTORY : Cardiac stents. Hernia repair with mesh. Bilateral hip replacement. Skincancer removal. Nodule remove d from vocal cords ENCOUNTER: Subsequent ACUITY: 4 - 6 days PAIN SCORE: 0/10 LOCATION: chest FINDINGS: PA and lateral views of the chest. Linear subsegmental atelectasis versus scarring at the lung bases. Mild pulmonary consolidation at the medial right lung base. Cardiomediastinal silhouette within norm al limits. No evidence of pleural effusion or pneumothorax. CONCLUSION: Mild medial right lung base pulmonary consolidation. King Aguilar MD on January 14, 2017 at 13:54 Board Certified Radiologist. This report was verified electronically.
[2017-01-14] MEDS: AZITHROMYCIN INJ 500 MG in SODIUM CHLOR 0.9% 250 ML INJ 250 ML IV SCH (14:38)
[2017-01-14] MEDS ORDERED: RESP: ALBUTEROL 2.5 MG/IPRATROPIUM 0.5 MG NEB (PRN) NEB (20:30)
[2017-01-14] MEDS: ATORVASTATIN 20 MG TAB PO SCH (20:37)
[2017-01-14] MEDS: ACETAMINOPHEN/HYDROcodone 325 MG/5 MG TAB PO PRN (20:38)
[2017-01-15] VITALS (8 sets, daily range): BP systolic 118–151; BP diastolic 69–96; PULSE 75–95; RESP 16–22; TEMP 96–98.3; O2SAT 92–97
[2017-01-15] MEDS: RESP: ALBUTEROL 2.5 MG/IPRATROPIUM 0.5 MG NEB (SCH) NEB ×4 (03:38→21:14)
[2017-01-15 06:15] LABS: AUTOMATED NEUTROPHIL # 18.8 TH/MM3 (1.8-7.7); BASOPHIL % 0.2 % (0.0-2.0); EOSINOPHIL # 0.1 TH/MM3 (0-0.4); EOSINOPHIL % 0.4 % (0.0-4.0); HEMATOCRIT 37.4 % (39.0-51.0); LYMPH % 8.6 % (9.0-44.0); LYMPHOCYTE # 1.8 TH/MM3 (1.0-4.8); MEAN CORPUSCULAR HEMOGLOBIN 32.2 PG (27.0-34.0); MEAN CORPUSCULAR HGB CONC 32.2 % (32.0-36.0); MONO % 2.8 % (0.0-8.0); PLATELET COUNT 349 TH/MM3 (150-450); RED BLOOD COUNT 3.74 MIL/MM3 (4.50-5.90); RED CELL DISTRIBUTION WIDTH 13.5 % (11.6-17.2); WHITE BLOOD COUNT 21.3 TH/MM3 (4.0-11.0)
[2017-01-15 06:20] LABS: HEMO FLAGS AUTO DIFF
--- NOTE | 2017-01-15 06:44 | HHI.PR ---
Subjective Remarks No new complaints. Diarrhea much improved. Had mucus in his stool yesterday. Chest x-ray yesterday showed a right lower lobe pneumonia. Dr Khan recommended continuing Zithromax IV and follow CBC and chest x-ray. Objective Vitals Vital Signs Date Time Temp Pulse Resp B/P (MAP) Pulse Ox O2 Delivery O2 Flow Rate FiO2 01/15/17 04:00 98.3 75 16 143/96 (112) 93 01/15/17 00:00 98.2 85 20 144/93 (110) 93 01/14/17 21:04 96 Nasal Cannula 2.00 01/14/17 20:00 98.0 95 18 139/82 (101) 94 01/14/17 20:00 Nasal Cannula 2.50 01/14/17 20:00 91 01/14/17 18:36 82 01/14/17 15:46 97.6 95 20 131/75 (93) 94 01/14/17 15:29 94 Nasal Cannula 2.00 01/14/17 11:58 97.8 83 20 142/88 (106) 93 01/14/17 09:06 91 Nasal Cannula 2.00 01/14/17 08:00 97.3 121 24 143/98 (113) 91 01/14/17 07:43 92 Nasal Cannula 2.00 Result Diagram: 01/15/17 0509 01/13/17 0522 Other Results Laboratory Tests Test 01/14/17 04:55 01/15/17 05:09 White Blood Count 21.6 TH/MM3 21.3 TH/MM3 Red Blood Count 3.40 MIL/MM3 3.74 MIL/MM3 Hemoglobin 11.3 GM/DL 12.1 GM/DL Hematocrit 34.3 % 37.4 % Mean Corpuscular Volume 100.8 FL 100.0 FL Mean Corpuscular Hemoglobin 33.2 PG 32.2 PG Mean Corpuscular Hemoglobin Concent 33.0 % 32.2 % Red Cell Distribution Width 13.5 % 13.5 % Platelet Count 287 TH/MM3 349 TH/MM3 Mean Platelet Volume 7.7 FL 7.6 FL Neutrophils (%) (Auto) 91.7 % 88.0 % Lymphocytes (%) (Auto) 3.7 % 8.6 % Monocytes (%) (Auto) 4.6 % 2.8 % Eosinophils (%) (Auto) 0.0 % 0.4 % Basophils (%) (Auto) 0.0 % 0.2 % Neutrophils # (Auto) 19.8 TH/MM3 18.8 TH/MM3 Lymphocytes # (Auto) 0.8 TH/MM3 1.8 TH/MM3 Monocytes # (Auto) 1.0 TH/MM3 0.6 TH/MM3 Eosinophils # (Auto) 0.0 TH/MM3 0.1 TH/MM3 Basophils # (Auto) 0.0 TH/MM3 0.0 TH/MM3 CBC Comment AUTO DIFF AUTO DIFF Differential Total Cells Counted 100 Neutrophils % (Manual) 79 % Band Neutrophils % 15 % Lymphocytes % 4 % Monocytes % 2 % Neutrophils # (Manual) 20.3 TH/MM3 Differential Comment FINAL DIFF MANUAL Platelet Estimate NORMAL Platelet Morphology Comment NORMAL Red Cell Morphology Comment NORMAL Imaging Last Impressions Chest X-Ray 01/14/17 0000 Signed Impressions: Service Date/Time: December 10:59 - CONCLUSION: Mild medial right lung base pulmonary consolidation. King Aguilar MD Ribs X-Ray 01/10/17 0000 Signed Impressions: Service Date/Time: Tuesday, January 10, 2017 10:47 - CONCLUSION: No acute rib fracture is identified. Vidal Valentine MD Last Impressions Ribs X-Ray 01/10/17 0000 Signed Impressions: Service Date/Time: Tuesday, January 10, 2017 10:47 - CONCLUSION: No acute rib fracture is identified. Vidal Valentine MD Chest X-Ray 01/10/17 0000 Signed Impressions: Service Date/Time: Tuesday, January 10, 2017 14:17 - CONCLUSION: More Midinspiratory exam with apparent atelectasis at the lung bases. Saman Mina MD Objective Remarks Exam: Pleasant white male in no distress. HEENT: Pupils equal, no scleral icterus, mouth negative Neck: No JVD Heart: Regular rhythm with slight tachycardia Lungs: Distant breath sounds moreso in the right base but no wheezing Abdomen: Soft, nontender Chest: precipitation equipment tender left lower anterolateral chest wall Extremities: No edema Neuro: Alert, oriented, no focal findings A/P Assessment and Plan Assessent: --COPD exacerbation--improving and stable --Right lower lobe pneumonia --C. difficile colitis--improved cliniscally --Fall with contusion left lower chest wall --Hypertension-better controlled --Peripheral artery disease with prior vascular procedures --Minimal alcohol withdrawal--stable --Recent pulmonary embolism (on Xarelto) Plan: Continue nebulizer treatment, steroids. Continue Flagyl and Vancomycin for his C. difficile colitis Continue Lorazepam as needed. Continue on Xarelto for his recent PE Continue Zithromax. CBC and chest x-ray ordered for tomorrow. Ephraim Chapman MD Jan 15, 2017 06:44
[2017-01-15 06:46] LABS: BANDS 5 % (0-6); NEUTROPHIL # MANUAL DIFF 16.6 TH/MM3 (1.8-7.7); POLYS (SEG NEUTROPHILS) 73 % (16-70); WBC DIFF SAMPLE 100
[2017-01-15 06:47] LABS: PLATELET ESTIMATE SMEAR NORMAL (NORMAL); PLATELET MORPHOLOGY NORMAL (NORMAL); SCAN/DIFF FINAL DIFF MANUAL
[2017-01-15] MEDS: metroNIDAZOLE 500 MG TAB PO SCH ×3 (08:19→17:38)
[2017-01-15] MEDS: DILTIAZEM-CD 120 MG CAP ER PO SCH (08:19)
[2017-01-15] MEDS: FOLIC ACID 1 MG TAB PO SCH (08:19)
[2017-01-15] MEDS: MULTIVITAMINS/MINERALS THERAPEUTIC TAB PO SCH (08:19)
[2017-01-15] MEDS: LISINOPRIL 20 MG TAB PO SCH ×2 (08:19→20:44)
[2017-01-15] MEDS: THIAMINE HCL 100 MG TAB PO SCH (08:20)
[2017-01-15] MEDS: METOPROLOL TARTRATE 50 MG TAB PO SCH ×2 (08:20→20:44)
[2017-01-15] MEDS: predniSONE 20 MG TAB PO SCH (08:20)
[2017-01-15] MEDS: RIVAROXABAN 15 MG TAB PO SCH ×2 (08:20→17:39)
[2017-01-15] MEDS: VANCOMYCIN 500 MG VIAL (FOR ORAL USE ONLY) PO SCH ×4 (08:21→20:44)
[2017-01-15] MEDS: SODIUM CHLORIDE 0.9% FLUSH 10 ML FLUSH IV FLUSH SCH ×2 (08:23→20:43)
[2017-01-15] MEDS: AZITHROMYCIN INJ 500 MG in SODIUM CHLOR 0.9% 250 ML INJ 250 ML IV SCH (13:20)
--- NOTE | 2017-01-15 18:53 | HHI.IDPN ---
Subjective Subjective Remarks X cover forr Dr Ventura chart reviewed 71 yo male with PNA, C.diff + productive cough Has 2 liquid BMs tooday denies abd pain no fever ANC down to 16.6 Antibiotics azithro vanco flagyl po Allergies: Coded Allergies: No Known Allergies (Verified , 01/10/17) Objective . Vital Signs Date Time Temp Pulse Resp B/P (MAP) Pulse Ox O2 Delivery O2 Flow Rate FiO2 01/15/17 16:00 97.0 95 20 151/90 (110) 94 01/15/17 12:00 96.7 91 21 118/69 (85) 92 01/15/17 09:56 95 Nasal Cannula 2.00 01/15/17 08:30 Nasal Cannula 2.50 21 01/15/17 08:00 96.0 95 22 125/77 (93) 96 01/15/17 04:00 98.3 75 16 143/96 (112) 93 01/15/17 00:00 98.2 85 20 144/93 (110) 93 01/14/17 21:04 96 Nasal Cannula 2.00 01/14/17 20:00 98.0 95 18 139/82 (101) 94 01/14/17 20:00 Nasal Cannula 2.50 01/14/17 20:00 91 01/15/17 01/15/17 01/16/17 15:00 23:00 07:00 Intake Total 1100 ml Balance 1100 ml Intake Oral 850 ml IV Total 250 ml # Voids 8 # Bowel Movements 4 1 . Laboratory Tests Test 01/14/17 04:55 01/15/17 05:09 White Blood Count 21.6 TH/MM3 21.3 TH/MM3 Red Blood Count 3.40 MIL/MM3 3.74 MIL/MM3 Hemoglobin 11.3 GM/DL 12.1 GM/DL Hematocrit 34.3 % 37.4 % Mean Corpuscular Volume 100.8 FL 100.0 FL Mean Corpuscular Hemoglobin 33.2 PG 32.2 PG Mean Corpuscular Hemoglobin Concent 33.0 % 32.2 % Red Cell Distribution Width 13.5 % 13.5 % Platelet Count 287 TH/MM3 349 TH/MM3 Mean Platelet Volume 7.7 FL 7.6 FL Neutrophils (%) (Auto) 91.7 % 88.0 % Lymphocytes (%) (Auto) 3.7 % 8.6 % Monocytes (%) (Auto) 4.6 % 2.8 % Eosinophils (%) (Auto) 0.0 % 0.4 % Basophils (%) (Auto) 0.0 % 0.2 % Neutrophils # (Auto) 19.8 TH/MM3 18.8 TH/MM3 Lymphocytes # (Auto) 0.8 TH/MM3 1.8 TH/MM3 Monocytes # (Auto) 1.0 TH/MM3 0.6 TH/MM3 Eosinophils # (Auto) 0.0 TH/MM3 0.1 TH/MM3 Basophils # (Auto) 0.0 TH/MM3 0.0 TH/MM3 CBC Comment AUTO DIFF AUTO DIFF Differential Total Cells Counted 100 100 Neutrophils % (Manual) 79 % 73 % Band Neutrophils % 15 % 5 % Lymphocytes % 4 % 14 % Monocytes % 2 % 8 % Neutrophils # (Manual) 20.3 TH/MM3 16.6 TH/MM3 Differential Comment FINAL DIFF MANUAL FINAL DIFF MANUAL Platelet Estimate NORMAL NORMAL Platelet Morphology Comment NORMAL NORMAL Red Cell Morphology Comment NORMAL NORMAL Imaging Last Impressions Chest X-Ray 01/14/17 0000 Signed Impressions: Service Date/Time: December 10:59 - CONCLUSION: Mild medial right lung base pulmonary consolidation. King Aguilar MD Ribs X-Ray 01/10/17 0000 Signed Impressions: Service Date/Time: Tuesday, January 10, 2017 10:47 - CONCLUSION: No acute rib fracture is identified. Vidal Valentine MD Physical Exam GENERAL: This is a well-developed male who is in no acute distress. He is awake and alert and oriented. HEENT: Extraocular movements grossly intact, pupils reactive to light. No icterus. Oropharynx no visible lesions. NECK: Supple without adenopathy. LUNGS: Basilar rhonchi bilateral. HEART: Regular rate and rhythm without murmurs or rubs or gallops. ABDOMEN: Bowel sounds are present, abdomen soft, nontender. Mildly distended RECTAL: Not performed. EXTREMITIES: No clubbing or cyanosis or edema. SKIN: Multiple ecchymotic lesions of the upper extremities. NEURO: No gross focal findings. PSYCHIATRIC: The patient is calm and cooperative. LABORATORY DATA WBC 21.6, platelets 287, hemoglobin 11.3, 15% bands, 79% neutrophils, creatinine 0.62, estimated GFR 128, sodium 141. Assessment & Plan Remarks IMPRESSION 1. C-difficile colitis in a patient who has recently been on antibiotics. 2. Lung infiltrates, likely secondary to aspiration in a patient who sustained a rib fracture on the left and has pain and has leukocytosis. The patient also has history of COPD. 3. Leukocytosis: still high, but ANV improved C-difficile and pneumonia contributing RECOMMENDATIONS 1.cont Flagyl 2 cont vancomycin for C-difficile 2. Continue azithromycin. 3. Follow the chest x-ray. Consideration can be given to stop the azithromycin if the chest x-ray shows improvement. 4. Monitor white blood cell count. 5. fu clinically 6. sputum clx dw Niki Tracy MD Jan 15, 2017 18:53
[2017-01-15] MEDS: ATORVASTATIN 20 MG TAB PO SCH (20:44)
[2017-01-15] MEDS: ACETAMINOPHEN/HYDROcodone 325 MG/5 MG TAB PO PRN (20:45)
[2017-01-16] VITALS (8 sets, daily range): BP systolic 130–151; BP diastolic 70–94; PULSE 79–95; RESP 16–22; TEMP 97.5–98.8; O2SAT 92–97
[2017-01-16] MEDS: RESP: ALBUTEROL 2.5 MG/IPRATROPIUM 0.5 MG NEB (SCH) NEB ×4 (03:56→22:09)
[2017-01-16 06:32] LABS: AUTOMATED NEUTROPHIL # 9.9 TH/MM3 (1.8-7.7); BASOPHIL # 0.1 TH/MM3 (0-0.2); BASOPHIL % 0.5 % (0.0-2.0); EOSINOPHIL # 0.2 TH/MM3 (0-0.4); EOSINOPHIL % 1.4 % (0.0-4.0); HEMATOCRIT 37.3 % (39.0-51.0); LYMPHOCYTE # 2.4 TH/MM3 (1.0-4.8); MEAN CELL VOLUME 99.7 FL (80.0-100.0); MEAN CORPUSCULAR HEMOGLOBIN 33.5 PG (27.0-34.0); MEAN CORPUSCULAR HGB CONC 33.5 % (32.0-36.0); MONO % 10.4 % (0.0-8.0); NEUT % 70.7 % (16.0-70.0); PLATELET COUNT 327 TH/MM3 (150-450); RED BLOOD COUNT 3.74 MIL/MM3 (4.50-5.90); RED CELL DISTRIBUTION WIDTH 13.4 % (11.6-17.2); WHITE BLOOD COUNT 14.1 TH/MM3 (4.0-11.0)
[2017-01-16 06:34] LABS: HEMO FLAGS DIFF FINAL
[2017-01-16 06:41] LABS: POTASSIUM 3.4 MEQ/L (3.5-5.1)
[2017-01-16 06:49] LABS: BICARBONATE 25.2 MEQ/L (21.0-32.0)
--- NOTE | 2017-01-16 06:54 | RADRPT ---
EXAM DATE/TIME: 01/16/2017 06:38 [facility] COMPARISON: CHEST PA & LAT, January 14, 2017, 10:59. INDICATIONS : Shortness of breath. MEDICAL HISTORY : Gastroesophageal reflux disease. Chronic obstructive pulmonary disease. Hypercholesterolemia. Hy pertension.Hyperthyroid. Head trauma. Numbness. Peripheral vascular disease,Hiatal hernia. Arthritis. Skin cancer. Clostridium difficle SURGICAL HISTORY : Cardiac stents. Hernia repair with mesh. Bilateral hip replacement, Skincancer removal. Nodule remove d from vocal cords ENCOUNTER: Subsequent ACUITY: 1 week PAIN SCORE: 0/10 LOCATION: Bilateral chest FINDINGS: PA and lateral views of the chest demonstrate subsegmental basilar opacity most characteristic of ate lectasis and scarring. No significant effusion. Heart size within normal limits. No pneumothorax. CONCLUSION: 1. Minimal basilar airspace disease. No significant change from January 14. Emanuel Mello MD on January 16, 2017 at 6:51 Board Certified Radiologist. This report was verified electronically.
--- NOTE | 2017-01-16 07:49 | HHI.PR ---
Subjective Remarks Breathing has improved. Loose stool returned yesterday. Has had 4 episodes of diarrhea since yesterday at noon. Denies hematochezia or melena. Objective Vitals Vital Signs Date Time Temp Pulse Resp B/P (MAP) Pulse Ox O2 Delivery O2 Flow Rate FiO2 01/16/17 01:07 98.8 89 22 147/94 (111) 96 01/15/17 21:14 97 Nasal Cannula 2.00 01/15/17 20:00 87 01/15/17 20:00 96.2 83 18 144/82 (102) 96 01/15/17 20:00 Nasal Cannula 2.50 01/15/17 16:00 97.0 95 20 151/90 (110) 94 01/15/17 12:00 96.7 91 21 118/69 (85) 92 01/15/17 09:56 95 Nasal Cannula 2.00 01/15/17 08:30 Nasal Cannula 2.50 21 01/15/17 08:00 96.0 95 22 125/77 (93) 96 GENERAL: obese, well developed male, NAD, a/o SKIN: Warm and dry. HEAD: Normocephalic. EYES: No scleral icterus. No injection or drainage. NECK: Supple, trachea midline. No JVD or lymphadenopathy. CARDIOVASCULAR: Regular rate and rhythm without murmurs, gallops, or rubs. RESPIRATORY: Breath sounds equal bilaterally with the exception of slight coarse breath sounds left base. No accessory muscle use. No wheeze. Good air movement. GASTROINTESTINAL: Abdomen soft, non-tender, minimally distended. Bowel sounds normal. MUSCULOSKELETAL: No cyanosis, or edema. BACK: No CVA tenderness. Result Diagram: 01/16/17 0546 01/16/17 0546 Imaging Last Impressions Chest X-Ray 01/14/17 0000 Signed Impressions: Service Date/Time: December 10:59 - CONCLUSION: Mild medial right lung base pulmonary consolidation. King Aguilar MD Ribs X-Ray 01/10/17 0000 Signed Impressions: Service Date/Time: Tuesday, January 10, 2017 10:47 - CONCLUSION: No acute rib fracture is identified. Vidal Valentine MD Last Impressions Ribs X-Ray 01/10/17 0000 Signed Impressions: Service Date/Time: Tuesday, January 10, 2017 10:47 - CONCLUSION: No acute rib fracture is identified. Vidal Valentine MD Chest X-Ray 01/10/17 0000 Signed Impressions: Service Date/Time: Tuesday, January 10, 2017 14:17 - CONCLUSION: More Midinspiratory exam with apparent atelectasis at the lung bases. Saman Mina MD Objective Remarks Urinary Catheter: No Vascular Central Line Catheter: No A/P Problem List: (1) Pneumonia ICD Codes: J18.9 - Pneumonia Status: Acute Plan: Clinically much improved. Chest x-ray reviewed. Infectious disease input appreciated. Convert to oral azithromycin which can be stopped after 3 days. (2) COPD exacerbation ICD Codes: J44.1 - Obstructive chronic bronchitis with exacerbation Status: Chronic Plan: Clinically improved. Continue supplemental oxygen, nebulizer, oral steroids, antibiotics. (3) Clostridium difficile colitis ICD Codes: A04.7 - Enterocolitis due to Clostridium difficile Status: Acute Plan: Diarrhea reportedly returned yesterday but not as severe. Continue medications and added cholestyramine. (4) Hypertension ICD Codes: I10 - Hypertension Status: Chronic Plan: Fair control. Continue current therapy. (5) Hyperlipemia ICD Codes: E78.5 - Hyperlipidemia Status: Chronic Plan: Continue current therapy. Outpatient follow-up. (6) Alcohol withdrawal ICD Codes: F10.239 - Alcohol withdrawal syndrome Status: Acute Plan: No overt signs of withdrawal presently. Continue to monitor. Discharge Planning Hopefully discharge home January 17. He is not desirous of rehabilitation short stay. Problem Qualifiers (1) Hypertension: Qualified Codes: I10 - Essential (primary) hypertension (2) Alcohol withdrawal: Qualified Codes: F10.230 - Alcohol dependence with withdrawal, uncomplicated Jac Amaro MD PhD Jan 16, 2017 07:49
[2017-01-16] MEDS ORDERED: POTASSIUM CHLORIDE 10 MEQ CONTROLLED RELEASE TAB PO ONE (08:00)
[2017-01-16] MEDS: VANCOMYCIN 500 MG VIAL (FOR ORAL USE ONLY) PO SCH ×4 (08:12→20:53)
[2017-01-16] MEDS: predniSONE 20 MG TAB PO SCH (08:12)
[2017-01-16] MEDS: metroNIDAZOLE 500 MG TAB PO SCH ×3 (08:12→17:56)
[2017-01-16] MEDS: METOPROLOL TARTRATE 50 MG TAB PO SCH ×2 (08:12→20:53)
[2017-01-16] MEDS: RIVAROXABAN 15 MG TAB PO SCH ×2 (08:13→17:56)
[2017-01-16] MEDS: THIAMINE HCL 100 MG TAB PO SCH (08:13)
[2017-01-16] MEDS: DILTIAZEM-CD 120 MG CAP ER PO SCH (08:13)
[2017-01-16] MEDS: LISINOPRIL 20 MG TAB PO SCH ×2 (08:13→20:53)
[2017-01-16] MEDS: SODIUM CHLORIDE 0.9% FLUSH 10 ML FLUSH IV FLUSH SCH ×2 (08:14→20:53)
[2017-01-16] MEDS: ACETAMINOPHEN/HYDROcodone 325 MG/5 MG TAB PO PRN ×3 (08:21→21:02)
[2017-01-16] MEDS: CHOLESTYRAMINE 4 GM PACKET PO SCH ×2 (08:28→20:53)
[2017-01-16] MEDS: ATORVASTATIN 20 MG TAB PO SCH (20:53)
[2017-01-17 00:07] VITALS: BP 165/103; PULSE 91; RESP 22; TEMP 98.1; O2SAT 96
[2017-01-17] MEDS: RESP: ALBUTEROL 2.5 MG/IPRATROPIUM 0.5 MG NEB (SCH) NEB ×2 (03:57→08:57)
[2017-01-17 04:49] VITALS: BP 165/94; PULSE 70; RESP 20; TEMP 98.1; O2SAT 91
[2017-01-17 08:00] VITALS: BP 182/100; PULSE 115; RESP 18; TEMP 97.3; O2SAT 94
[2017-01-17 08:02] VITALS: PULSE 85
--- NOTE | 2017-01-17 08:02 | HHI.PR ---
Subjective Remarks Feeling overall better. Has mild chronic shortness of breath which is stable. Noted some pain over her left rib cage last night at times associated with recent fall as outpatient. No fracture noted on recent rib x-ray or chest films. No more loose stool. Last bowel movement was yesterday morning per his report. Objective Vitals Vital Signs Date Time Temp Pulse Resp B/P (MAP) Pulse Ox O2 Delivery O2 Flow Rate FiO2 01/17/17 04:49 98.1 70 20 165/94 (117) 91 01/17/17 00:07 98.1 91 22 165/103 (123) 96 01/16/17 22:10 97 Nasal Cannula 2.00 01/16/17 20:07 97.7 89 22 151/86 (107) 94 01/16/17 20:00 89 01/16/17 19:00 97 Nasal Cannula 2.00 01/16/17 16:01 20 01/16/17 16:00 97.9 91 17 139/85 (103) 93 01/16/17 12:00 97.9 91 17 139/85 (103) 93 01/16/17 10:06 97 Nasal Cannula 2.00 01/16/17 08:00 98.1 95 19 151/91 (111) 92 01/16/17 08:00 97.5 79 16 130/70 (90) 94 01/16/17 08:00 84 GENERAL: Obese, no apparent distress, alert and oriented. SKIN: Warm and dry. HEAD: Normocephalic. EYES: No scleral icterus. No injection or drainage. NECK: Supple, trachea midline. No JVD or lymphadenopathy. CARDIOVASCULAR: Regular rate and rhythm without murmurs, gallops, or rubs. RESPIRATORY: Breath sounds equal bilaterally. No accessory muscle use. No wheeze. Fair air movement. GASTROINTESTINAL: Abdomen soft, non-tender, nondistended. Bowel sounds normal. MUSCULOSKELETAL: No cyanosis, or edema. Slight tenderness to palpation over left lateral rib cage. No step-off palpated. BACK: No CVA tenderness. Result Diagram: 01/16/17 0546 01/16/17 0546 Imaging Last Impressions Chest X-Ray 01/14/17 0000 Signed Impressions: Service Date/Time: December 10:59 - CONCLUSION: Mild medial right lung base pulmonary consolidation. King Aguilar MD Ribs X-Ray 01/10/17 Signed Impressions: Service Date/Time: Tuesday, January 10, 2017 10:47 - CONCLUSION: No acute rib fracture is identified. Vidal Valentine MD Last Impressions Ribs X-Ray 01/10/17 Signed Impressions: Service Date/Time: Tuesday, January 10, 2017 10:47 - CONCLUSION: No acute rib fracture is identified. Vidal Valentine MD Chest X-Ray 01/10/17 Signed Impressions: Service Date/Time: Tuesday, January 10, 2017 14:17 - CONCLUSION: More Midinspiratory exam with apparent atelectasis at the lung bases. Saman Mina MD Objective Remarks Urinary Catheter: No Vascular Central Line Catheter: No A/P Problem List: (1) Pneumonia ICD Codes: J18.9 - Pneumonia Status: Acute Plan: Clinically much improved. Chest x-ray reviewed. Infectious disease input appreciated. Antibiotics regarding pneumonia discontinued. (2) COPD exacerbation ICD Codes: J44.1 - Obstructive chronic bronchitis with exacerbation Status: Chronic Plan: Clinically improved. Continue supplemental oxygen, nebulizer, oral steroids. (3) Clostridium difficile colitis ICD Codes: A04.7 - Enterocolitis due to Clostridium difficile Status: Acute Plan: No more loose stool. Continue antibiotics as well as cholestyramine. (4) Hypertension ICD Codes: I10 - Hypertension Status: Chronic Plan: BP a bit high today. Could be associated with the left-sided rib cage pain. Add low-dose amlodipine. (5) Hyperlipemia ICD Codes: E78.5 - Hyperlipidemia Status: Chronic Plan: Continue current therapy. Outpatient follow-up. (6) Alcohol withdrawal ICD Codes: F10.239 - Alcohol withdrawal syndrome Status: Acute Plan: No overt signs of withdrawal presently. Continue to monitor. Discharge Planning Discharge home today. He is not desirous of rehabilitation short stay. Problem Qualifiers (1) Hypertension: Qualified Codes: I10 - Essential (primary) hypertension (2) Alcohol withdrawal: Qualified Codes: F10.230 - Alcohol dependence with withdrawal, uncomplicated Jac Amaro MD PhD Jan 17, 2017 08:02
[2017-01-17] MEDS ORDERED: METR-1 PO (08:10)
[2017-01-17] MEDS ORDERED: CHOL4POW4 PO (08:10)
[2017-01-17] MEDS ORDERED: CARD120C4 PO (08:10)
[2017-01-17] MEDS ORDERED: PRED20 PO (08:10)
[2017-01-17] MEDS ORDERED: LISI-515 PO (08:10)
[2017-01-17] MEDS ORDERED: HYDR-3516 PO (08:10)
[2017-01-17] MEDS ORDERED: VANC500I3 PO (08:10)
--- NOTE | 2017-01-17 08:20 | HHI.DS ---
Discharge Summary Admission Date Jan 10, 2017 at 13:30 Discharge Date: Jan 17, 2017 Admitting Diagnosis COPD exacerbation (1) Pneumonia Diagnosis: Principal ICD Codes: J18.9 - Pneumonia Status: Acute (2) COPD exacerbation Diagnosis: Principal ICD Codes: J44.1 - Obstructive chronic bronchitis with exacerbation Status: Chronic (3) Clostridium difficile colitis Diagnosis: Principal ICD Codes: A04.7 - Enterocolitis due to Clostridium difficile Status: Acute (4) Hypertension Diagnosis: Secondary ICD Codes: I10 - Hypertension Status: Chronic (5) Hyperlipemia Diagnosis: Secondary ICD Codes: E78.5 - Hyperlipidemia Status: Chronic (6) Alcohol withdrawal Diagnosis: Secondary ICD Codes: F10.239 - Alcohol withdrawal syndrome Status: Acute (7) Pulmonary emboli Diagnosis: Secondary ICD Codes: I26.99 - Other pulmonary embolism without acute cor pulmonale [facility] GI- Dr Wilder ID- Dr Paiz Brief History This is a 71-year-old white male who has had several admissions to the hospital for COPD exacerbation. He apparently last night was out at the club with his dancing. He had about three drinks of vodka, he does not know the amount that was in each drink. He was going home and walking up the stairs. He fell and landed on his left lower rib cage. It was hard for him to get up so he just decided to sleep on the front porch last night. He initially called fire rescue this morning for help getting up. He was complaining of shortness of breath however when they arrived and dizziness. He normally uses oxygen at night but obviously did not use that during last night since he was sleeping on the porch. He was brought to the emergency department. His 02 saturations were not hypoxic. He did have tachycardia in the 120s. He however had not taken any of his medications this morning. He is on a beta roxana at home for hypertension. He had an x-ray of the left rib that was negative for any fracture or pneumo. He is being admitted for COPD exacerbation. He has had some mild alcohol withdrawal symptoms in the past on prior admissions. He has never had any alcohol withdrawal seizures. He just got out of the hospital earlier this month for small pulmonary emboli and is on Xarelto. CBC/BMP: 01/16/17 0546 01/16/17 0546 Significant Findings Laboratory Tests Test 01/15/17 05:09 01/16/17 05:46 White Blood Count 21.3 TH/MM3 (4.0-11.0) 14.1 TH/MM3 (4.0-11.0) Red Blood Count 3.74 MIL/MM3 (4.50-5.90) 3.74 MIL/MM3 (4.50-5.90) Hemoglobin 12.1 GM/DL (13.0-17.0) 12.5 GM/DL (13.0-17.0) Hematocrit 37.4 % (39.0-51.0) 37.3 % (39.0-51.0) Neutrophils (%) (Auto) 88.0 % (16.0-70.0) 70.7 % (16.0-70.0) Lymphocytes (%) (Auto) 8.6 % (9.0-44.0) Neutrophils # (Auto) 18.8 TH/MM3 (1.8-7.7) 9.9 TH/MM3 (1.8-7.7) Neutrophils % (Manual) 73 % (16-70) Neutrophils # (Manual) 16.6 TH/MM3 (1.8-7.7) Monocytes (%) (Auto) 10.4 % (0.0-8.0) Monocytes # (Auto) 1.5 TH/MM3 (0-0.9) Blood Urea Nitrogen 19 MG/DL (7-18) Random Glucose 107 MG/DL (74-106) Calcium Level 7.9 MG/DL (8.5-10.1) Potassium Level 3.4 MEQ/L (3.5-5.1) Chloride Level 108 MEQ/L (98-107) PE at Discharge Hospital Course Patient admitted for COPD exacerbation and later found to have pneumonia. He also was discovered to have C. difficile colitis which is a recurrent issue for him. He was appropriately placed on antibiotics. GI and infectious disease consultations were obtained. His white count did peak in the low 20,000 but on the day prior to discharge was back down to 14,000 and he had no more diarrhea over the last 24 hours prior to discharge. Patient's breathing was back at his baseline. He will continue to use home supplemental oxygen. He'll remain on antibiotic therapy for the C. difficile colitis for 10 more days. He will have outpatient follow-up with his primary care physician within one week. He was given reasons to return. Pt Condition on Discharge: Stable Discharge Disposition: Discharge Home Discharge Instructions DIET: Follow Instructions for: Heart Healthy Diet Speech Therapy-Diet Recommends: Regular Activities you can perform: Weight Bearing as Cecilia Other Activity Instructions: fall precautions. Start slowly with activities and advance as tolerated Follow up Referrals: PCP Follow-up New Orders: CBC WITH DIFF - 1 Week New Medications: Cholestyramine (Cholestyramine) 4 Gm/Pkt Powd 4 GM PO Q12HR for Infection for 10 Days, CONTAINER 1 packet contains 4 grams of cholestyramine. Diltiazem CD 24 HR (Cardizem CD 24 HR) 120 Mg Caper 180 MG PO DAILY for htn, #31 CAP Hydrocodone-Acetaminophen (Hydrocodone-Acetaminophen) 5-325 mg Tab 1 TAB PO Q6H PRN for PAIN 1-10, #12 TAB Lisinopril (Lisinopril) 20 Mg Tab 20 MG PO Q12HR for htn, #60 TAB Metronidazole (Flagyl) 500 Mg Tab 500 MG PO TID for Infection, #30 TAB Prednisone (Prednisone) 20 Mg Tab 20 MG PO DAILY for copd, #8 TAB Take 1 pill daily for 5 days, then 1/2 pill daily for 6 days Vancomycin Inj (Vancomycin Inj) 500 Mg Inj 125 MG PO QID for Infection for 10 Days, INJECTION Continued Medications: Albuterol 18 GM Inh (Ventolin Hfa 18 GM Inh) 90 Mcg/Act Aer 2 PUFF INH Q4-6H PRN for SHORTNESS OF BREATH, #1 INHALER 0 Refills Albuterol Neb (Albuterol Neb) 2.5 Mg/3 Ml Neb 2.5 MG NEB Q4HR NEB for Breathing Treatment, #60 NEBULE 0 Refills While awake Atorvastatin (Atorvastatin) 20 Mg Tab 20 MG PO HS for Cholesterol Management, #30 TAB 0 Refills Fluticasone-Vilanterol Inh (Breo Ellipta Inh) 100-25 Mcg/Act Inh 1 PUFF INH DAILY, #1 INHALER 0 Refills Use daily at the same time. Metoprolol Tartrate (Metoprolol Tartrate) 25 Mg Tab 25 MG PO Q12HR for hypertenison, #60 TAB 3 Refills Multiple Vitamin (Thera/Beta-Carotene) 1 Tab Tab 1 TAB PO DAILY for etoh, #30 TAB 0 Refills Rivaroxaban (Xarelto) 15 Mg Tab 15 MG PO BIDPC for Pulmonary embolus, #40 TAB [Oxygen] () 2 LITER INH DAILY Jac Amaro MD PhD Jan 17, 2017 08:20
[2017-01-17] MEDS: RIVAROXABAN 15 MG TAB PO SCH (08:26)
[2017-01-17] MEDS: THIAMINE HCL 100 MG TAB PO SCH (08:27)
[2017-01-17] MEDS: METOPROLOL TARTRATE 50 MG TAB PO SCH (08:27)
[2017-01-17] MEDS: LISINOPRIL 20 MG TAB PO SCH (08:27)
[2017-01-17] MEDS: metroNIDAZOLE 500 MG TAB PO SCH (08:27)
[2017-01-17] MEDS: predniSONE 20 MG TAB PO SCH (08:28)
[2017-01-17] MEDS: CHOLESTYRAMINE 4 GM PACKET PO SCH (08:28)
[2017-01-17] MEDS: VANCOMYCIN 500 MG VIAL (FOR ORAL USE ONLY) PO SCH (08:28)
[2017-01-17] MEDS: SODIUM CHLORIDE 0.9% FLUSH 10 ML FLUSH IV FLUSH SCH (08:29)
[2017-01-17 08:57] VITALS: O2SAT 95
[2017-01-17] MEDS ORDERED: DILTIAZEM-CD 180 MG CAP ER PO SCH (09:00)
== END 2017-01-17 10:37 | disposition home or self-care (01) | DRG 190 ==
LOC: PHED 10:07 → PHEDA 13:30 → PH3B 15:00
PROVIDERS: ADMIT Internal Medicine; ATTEND Internal Medicine
PROC: 3E0F7GC Introduction of Other Therapeutic Substance into Respiratory Tract, Via Natural or Artificial Opening (ICD-10-PCS; principal; 2017-01-10)
DX: J44.1 Chronic obstructive pulmonary disease with (acute) exacerbation (principal); J18.9 Pneumonia, unspecified organism; A04.72 Enterocolitis due to Clostridium difficile, not specified as recurrent; Z99.81 Dependence on supplemental oxygen; F10.239 Alcohol dependence with withdrawal, unspecified; E05.90 Thyrotoxicosis, unspecified without thyrotoxic crisis or storm; M19.90 Unspecified osteoarthritis, unspecified site; E78.00 Pure hypercholesterolemia, unspecified; K21.9 Gastro-esophageal reflux disease without esophagitis; S20.212A Contusion of left front wall of thorax, initial encounter; I10 Essential (primary) hypertension; K44.9 Diaphragmatic hernia without obstruction or gangrene; F17.210 Nicotine dependence, cigarettes, uncomplicated; R00.0 Tachycardia, unspecified; Z85.828 Personal history of other malignant neoplasm of skin; Z96.643 Presence of artificial hip joint, bilateral; W19.XXXA Unspecified fall, initial encounter; Z79.01 Long term (current) use of anticoagulants; Y92.009 Unspecified place in unspecified non-institutional (private) residence as the place of occurrence of the external cause; Z86.711 Personal history of pulmonary embolism; I73.9 Peripheral vascular disease, unspecified; J44.0 Chronic obstructive pulmonary disease with (acute) lower respiratory infection
CPT/HCPCS: 71020; 71101; 80048; 80307; 84439; 84443; 84481; 85007; 85025; 85027; 87493; 93005; 94640; 94664; 96361; 96374; 96375; J0456; J0696; J2920; J2930; J3411; J7040; J7050; J7512

== ENCOUNTER 2017-07-01 12:44 | Day surgery (SDC) | payer MEDICARE ==
[~2017-07-01 12:44] MED LIST changes: -AZIT250T3 PO; +CARD120C4 PO; -CEFU1TAB20 PO; +CHOL4POW4 PO; +HYDR-3516 PO; +LISI-515 PO; +METR-1 PO; -NICO14DI23 T-DERMAL; -PLAV75TA29 PO; +PRED20 PO; +VANC500I3 PO
[2017-07-01] MEDS ORDERED: LIDOCAINE HCL 1% 20 ML VIAL ONE (14:19)
[2017-07-01 14:25] VITALS: BP 203/99; PULSE 109; RESP 20; TEMP 97.7; O2SAT 96
[2017-07-01 14:55] VITALS: BP 168/96; PULSE 100; RESP 20; O2SAT 94
--- NOTE | 2017-07-01 15:10 | RADRPT ---
EXAM DATE/TIME: 07/01/2017 13:35 [facility] COMPARISON: No previous studies available for comparison. INDICATIONS : Left axilla lympadenopathy. MEDICAL HISTORY : Hyperthyroid. Hernia. PE. PVD. ETOH. COPD. GERD. C-diff. Hypertension. SURGICAL HISTORY : Common femoral thromboendarterectomy. Colonoscopy. EGD. Hip replacement. ENCOUNTER: Initial ACUITY: 2 months PAIN SCORE: 2/10 LOCATION: Left axilla. ORGAN: Left axillary mass/lymphadenopathy SPECIMENS: Two core specimen(s) submitted for pathologic evaluation. DEVICE: 18 gauge Temno needle Post procedure scanning reveals no hematoma or other complication. The possibility does exist that the tissue obtained will be non-diagnostic. If the sample is non-nighat gnostic a repeat biopsy or surgical biopsy may need to be performed. TECHNIQUE: 1. Ultrasound guidance for needle biopsy. 2. Needle biopsy. The risks, benefits and alternatives to the procedure were explained and verbal and written consent w as obtained. The site was prepped in sterile fashion. Full sterile technique was used, including ca p, mask, sterile gloves and gown and a large sterile sheet. Hand hygiene and 2% chlorhexidine and/or betadine/alcohol prep was utilized per protocol for cutaneous antisepsis. The skin and subcutaneous tissues were infiltrated with local anesthetic solution. Sterile gel and sterile probe cover were u tilized for ultrasound guidance. With the patient on the ultrasound table, images were obtained. A needle was advanced into the identified target and the number of specimens as above obtained and mejia bmitted for pathologic evaluation. The patient tolerated the procedure well and left the ultrasound suite in stable condition. CONCLUSION: Uncomplicated ultrasound guided needle biopsy. James Aceves MD on July 01, 2017 at 15:07 Board Certified Radiologist. This report was verified electronically.
== END 2017-07-01 15:10 | disposition home or self-care (01) ==
LOC: HRAD 12:44 → HRIP 12:45 → HRAD 15:10
PROVIDERS: ATTEND Surgery
DX: R59.1 Generalized enlarged lymph nodes (principal)
CPT/HCPCS: 38505; 76942; 88305; 88307; 88341; 88342

== ENCOUNTER 2017-08-01 19:50 | Emergency (ER) | payer MEDICARE ==
[~2017-08-01] VITALS: Ht 172.7 cm; Wt 93.9 kg
[2017-08-01 20:22] VITALS: BP 106/55; PULSE 108; RESP 18; TEMP 98.6; O2SAT 97
[2017-08-01] MEDS ORDERED: RESP: ALBUTEROL 2.5 MG/IPRATROPIUM 0.5 MG NEB (SCH) INH ONE (22:15)
[2017-08-01] MEDS ORDERED: SODIUM CHLORIDE 0.9% FLUSH 10 ML FLUSH IVF PRN (22:15)
[2017-08-01 22:22] LABS: AUTOMATED NEUTROPHIL # 5.5 TH/MM3 (1.8-7.7); BASOPHIL # 0.1 TH/MM3 (0-0.2); BASOPHIL % 1.9 % (0.0-2.0); EOSINOPHIL # 0.1 TH/MM3 (0-0.4); EOSINOPHIL % 1.9 % (0.0-4.0); HEMATOCRIT 35.8 % (39.0-51.0); HEMOGLOBIN 11.6 GM/DL (13.0-17.0); LYMPH % 18.6 % (9.0-44.0); LYMPHOCYTE # 1.4 TH/MM3 (1.0-4.8); MEAN CELL VOLUME 92.3 FL (80.0-100.0); MEAN CORPUSCULAR HGB CONC 32.5 % (32.0-36.0); MEAN PLATELET VOLUME 6.8 FL (7.0-11.0); MONO % 9.1 % (0.0-8.0); MONOCYTE # 0.7 TH/MM3 (0-0.9); NEUT % 68.5 % (16.0-70.0); PLATELET COUNT 362 TH/MM3 (150-450); RED BLOOD COUNT 3.88 MIL/MM3 (4.50-5.90); RED CELL DISTRIBUTION WIDTH 17.5 % (11.6-17.2); WHITE BLOOD COUNT 7.8 TH/MM3 (4.0-11.0)
[2017-08-01 22:32] LABS: CALCIUM 8.6 MG/DL (8.5-10.1)
[2017-08-01 22:33] LABS: BICARBONATE 22.1 MEQ/L (21.0-32.0)
--- NOTE | 2017-08-01 22:34 | PD ---
HPI Chief Complaint: Skin Problem Time Seen by Provider: 21:48 Travel History International Travel<30 days: No Contact w/Intl Traveler<30days: No Traveled to known affect area: No History of Present Illness HPI 72-year-old male arrives to the ER with bleeding from the left chest wall. He has a history of cancer, evidently of unknown primary source, and is following with Dr. Naik. No fever. Nose bleeding this morning which has persisted throughout the day trace amount. It was very itchy last night. He reports scratching it repeatedly leading to bleeding. Patient also has for breathing treatment here due to wheezing. PFSH Past Medical History Hx Anticoagulant Therapy: Yes Arthritis: Yes Asthma: No Autoimmune Disease: No Blood Disorders: No Anxiety: No Depression: No Heart Rhythm Problems: No Cancer: Yes (SKIN CANCER REMOVAL) Cardiovascular Problems: Yes (STENTS) High Cholesterol: Yes Chemotherapy: No Chest Pain: No Congestive Heart Failure: No COPD: Yes Cerebrovascular Accident: No Diabetes: No Diminished Hearing: No Endocrine: No Gastrointestinal Disorders: Yes GERD: Yes Glaucoma: No Genitourinary: No Headaches: No Hepatitis: No Hiatal Hernia: Yes Hypertension: Yes Immune Disorder: No Implanted Vascular Access Dvce: Yes Kidney Stones: No Musculoskeletal: Yes Neurologic: Yes Psychiatric: No Reproductive: No Respiratory: Yes (PE) Integumentary: No Immunizations Current: Yes Migraines: No Myocardial Infarction: No Pneumonia: Yes Radiation Therapy: No Renal Failure: No Seizures: No Sickle Cell Disease: No Sleep Apnea: No Thyroid Disease: Yes (HYPERTHYROID) Ulcer: No Past Surgical History Abdominal Surgery: Yes (HERNIA REPAIR WITH MESH) AICD: No Appendectomy: No Arteriovenous Shunt: No Body Medical Devices: Stents LE's, BL hips Cardiac Surgery: Yes Cholecystectomy: No Ear Surgery: No Endocrine Surgery: No Eye Surgery: No Genitourinary Surgery: No Gynecologic Surgery: No Insulin Pump: No Joint Replacement: Yes (BILATERAL HIPS) Neurologic Surgery: No Oral Surgery: No Pacemaker: No Thoracic Surgery: Yes Other Surgery: Yes (NODULE REMOVED FROM VOCAL CORD) Social History Alcohol Use: Yes (A COUPLE TIMES A WEEK) Tobacco Use: Yes (1 PPD) Substance Use: No Allergies-Medications (Allergen,Severity, Reaction): Coded Allergies: No Known Allergies (Verified Adverse Reaction, Unknown, 08/01/17) Reported Meds & Prescriptions Reported Meds & Active Scripts Active Cardizem CD 24 HR (Diltiazem CD 24 HR) 120 Mg Caper 180 Mg PO DAILY Prednisone 20 Mg Tab 20 Mg PO DAILY Take 1 pill daily for 5 days, then 1/2 pill daily for 6 days Hydrocodone-Acetaminophen 5-325 mg Tab 1 Tab PO Q6H PRN Lisinopril 20 Mg Tab 20 Mg PO Q12HR Cholestyramine 4 Gm/Pkt Powd 4 Gm PO Q12HR 10 Days 1 packet contains 4 grams of cholestyramine. Flagyl (Metronidazole) 500 Mg Tab 500 Mg PO TID Vancomycin Inj (Vancomycin HCl) 500 Mg Inj 125 Mg PO QID 10 Days Xarelto (Rivaroxaban) 15 Mg Tab 15 Mg PO BIDPC Metoprolol Tartrate 25 Mg Tab 25 Mg PO Q12HR Lisinopril 10 Mg Tab 10 Mg PO Q12HR Thera/Beta-Carotene (Multiple Vitamin) 1 Tab Tab 1 Tab PO DAILY Reported [Oxygen] 2 Liter INH DAILY Ventolin Hfa 18 GM Inh (Albuterol Sulfate) 90 Mcg/Act Aer 2 Puff INH Q4-6H PRN Breo Ellipta Inh (Fluticasone/Vilanterol) 100-25 Mcg/Act Inh 1 Puff INH DAILY Use daily at the same time. Albuterol Neb (Albuterol Sulfate) 2.5 Mg/3 Ml Neb 2.5 Mg NEB Q4HR NEB While awake Lorazepam 1 Mg Tab 1 Mg PO BID Atorvastatin (Atorvastatin Calcium) 20 Mg Tab 20 Mg PO HS Review of Systems Except as stated in HPI: all other systems reviewed are Neg General / Constitutional: No: Fever Physical Exam Narrative GENERAL: 72 yo m WNWD NAD Vital Signs Date Time Temp Pulse Resp B/P (MAP) Pulse Ox O2 Delivery O2 Flow Rate FiO2 08/01/17 20:22 98.6 108 18 106/55 (72) 97 SKIN: Warm and dry. Left chest wall is indurated lobular with obvious soft tissue mass at least 15 cm x 10 cm with a portion towards the region of the axilla is about 1 cm with denuded epidermis without active bleed. The area is not tender. It is erythematous and firm. no fluctuance. HEAD: Atraumatic. Normocephalic. EYES: Pupils equal and round. No scleral icterus. No injection or drainage. ENT: No nasal bleeding or discharge. Mucous membranes pink and moist. NECK: Trachea midline. No JVD. CARDIOVASCULAR: Regular rate and rhythm. RESPIRATORY: No accessory muscle use. Clear to auscultation. Breath sounds equal bilaterally. GASTROINTESTINAL: Abdomen soft, non-tender, nondistended. Hepatic and splenic margins not palpable. MUSCULOSKELETAL: Extremities without clubbing, cyanosis, or edema. No obvious deformities. NEUROLOGICAL: Awake and alert. No obvious cranial nerve deficits. Motor grossly within normal limits. Five out of 5 muscle strength in the arms and legs. Normal speech. PSYCHIATRIC: Appropriate mood and affect; insight and judgment normal. Data Data Last Documented VS Vital Signs Date Time Temp Pulse Resp B/P (MAP) Pulse Ox O2 Delivery O2 Flow Rate FiO2 08/01/17 20:22 98.6 108 18 106/55 (72) 97 Orders Orders Basic Metabolic Panel (Bmp) (08/01/17 22:05) Complete Blood Count With Diff (08/01/17 22:05) Wound Culture And Gram Stain (08/01/17 22:05) Iv Access Insert/Monitor (08/01/17 22:05) Wound Care (08/01/17 22:05) Ecg Monitoring (08/01/17 22:05) Oximetry (08/01/17 22:05) Oxygen Administration (08/01/17 22:05) Sodium Chloride 0.9% Flush (Ns Flush) (08/01/17 22:15) Albuterol-Ipratropium Neb (Duoneb Neb) (08/01/17 22:15) Ed Discharge Order (08/01/17 22:42) Gelatin 12 Mm/7 Mm Top (Gelfoam 12 Mm/7 (08/01/17 22:45) Labs Laboratory Tests Test 08/01/17 22:00 White Blood Count 7.8 TH/MM3 Red Blood Count 3.88 MIL/MM3 Hemoglobin 11.6 GM/DL Hematocrit 35.8 % Mean Corpuscular Volume 92.3 FL Mean Corpuscular Hemoglobin 30.0 PG Mean Corpuscular Hemoglobin Concent 32.5 % Red Cell Distribution Width 17.5 % Platelet Count 362 TH/MM3 Mean Platelet Volume 6.8 FL Neutrophils (%) (Auto) 68.5 % Lymphocytes (%) (Auto) 18.6 % Monocytes (%) (Auto) 9.1 % Eosinophils (%) (Auto) 1.9 % Basophils (%) (Auto) 1.9 % Neutrophils # (Auto) 5.5 TH/MM3 Lymphocytes # (Auto) 1.4 TH/MM3 Monocytes # (Auto) 0.7 TH/MM3 Eosinophils # (Auto) 0.1 TH/MM3 Basophils # (Auto) 0.1 TH/MM3 CBC Comment DIFF FINAL Differential Comment Blood Urea Nitrogen 17 MG/DL Creatinine 1.10 MG/DL Random Glucose 102 MG/DL Calcium Level 8.6 MG/DL Sodium Level 138 MEQ/L Potassium Level 3.4 MEQ/L Chloride Level 104 MEQ/L Carbon Dioxide Level 22.1 MEQ/L Anion Gap 12 MEQ/L Estimat Glomerular Filtration Rate 66 ML/MIN MDM Medical Decision Making Medical Screen Exam Complete: Yes Emergency Medical Condition: Yes Medical Record Reviewed: Yes Differential Diagnosis tumor, abscess, cellulitis, COPD exacerbation Narrative Course CBC & BMP Diagram 08/01/17 22:00 Calcium Level 8.6 Overall is considered quite unlikely that the patient actually has an infection of the left chest wall soft tissue because there is no fever, leukocytosis, warmth, fluctuance or tenderness about the area of redness of the left chest wall. Ulceration of tumor cells is considered as is dermatitic type reaction. Surgicel dressing placed along the L chest wall. Patient is stable for discharge. Of note he reports significant improvement following administration of DuoNeb treatment for wheezing. Diagnosis Primary Impression: COPD exacerbation Additional Impression: Soft tissue mass Referrals: Oncologist 2 days Patient Instructions: General Instructions Disposition: 01 DISCHARGE HOME Condition: Stable Deonte Guerrier MD Aug 01, 2017 22:34
[2017-08-01 22:36] LABS: CREATININE 1.1 MG/DL (0.60-1.30)
[2017-08-01] MEDS ORDERED: GELATIN 12 MM/7 MM FOAM TOPICAL ONE (22:45)
[2017-08-01 22:53] VITALS: O2SAT 96
[2017-08-01 23:28] VITALS: BP 95/53
== END 2017-08-01 23:39 | disposition home or self-care (01) ==
LOC: PHED 19:50
DX: J44.1 Chronic obstructive pulmonary disease with (acute) exacerbation (principal); A49.01 Methicillin susceptible Staphylococcus aureus infection, unspecified site; M19.90 Unspecified osteoarthritis, unspecified site; E78.00 Pure hypercholesterolemia, unspecified; J44.9 Chronic obstructive pulmonary disease, unspecified; K21.9 Gastro-esophageal reflux disease without esophagitis; I10 Essential (primary) hypertension; E05.90 Thyrotoxicosis, unspecified without thyrotoxic crisis or storm; Z86.711 Personal history of pulmonary embolism
CPT/HCPCS: 80048; 85025; 86403; 87070; 87186; 87205; 94664; 99283

== ENCOUNTER 2017-08-13 09:57 | Day surgery (SDC) | payer MEDICARE ==
[~2017-08-13] VITALS: Ht 172.7 cm; Wt 95.9 kg
[2017-08-13 10:29] VITALS: BP 143/87; PULSE 113; RESP 24; TEMP 98.5; O2SAT 89
[2017-08-13] MEDS ORDERED: VANCOMYCIN HCL 1000 MG VIAL ONE (10:52)
[2017-08-13] MEDS ORDERED: SODIUM CHLOR 0.9% 250 ML INJ 250 ML ONE (10:52)
[2017-08-13 10:55] LABS: PROTHROMBIN TIME - PATIENT 10.6 SEC (9.8-11.6)
[2017-08-13] MEDS ORDERED: CHLORHEXIDINE GLUCONATE 2 % 1 PACK (2 CLOTHS) TOPICAL SCH (11:00)
[2017-08-13] MEDS ORDERED: SODIUM CHLORIDE 0.9% 1000 ML IV SCH (11:00)
[2017-08-13] MEDS ORDERED: ceFAZolin 2 GM PREMIX 50 ML - implanted port removal IV SCH (11:00)
[2017-08-13] MEDS ORDERED: MIDAZOLAM HCL 2 MG/2 ML VIAL ONE (11:16)
[2017-08-13 12:15] VITALS: BP 188/95; PULSE 100; RESP 20; TEMP 97.9; O2SAT 94
[2017-08-13 12:30] VITALS: BP 154/74; PULSE 95; RESP 18; O2SAT 94
--- NOTE | 2017-08-13 12:44 | PD.RAD ---
Post Procedure Progress Note Pre Procedure Diagnosis: (1) SIRS (systemic inflammatory response syndrome) (2) Cancer Post Procedure Diagnosis: (1) SIRS (systemic inflammatory response syndrome) (2) Cancer Procedure Date: Aug 13, 2017 Supervising Radiologist: Naeem Manriquez Proceduralist/Assist: Shama Peck, RT(R)(CV), Harish Zhang, RT(R) Anesthesia: Conscious Sedation Plan of Activity Patient to Unit: [facility]OPU Patient Condition: Good See PACS Report for procedural detail/treatment Central Venous Access Device Procedure 1 Right Internal Jugular Infusaport Placement single lumen Naeem Manriquez MD Aug 13, 2017 12:44
[2017-08-13] MEDS ORDERED: SODIUM CHLORIDE 0.9% FLUSH 10 ML FLUSH IVF PRN (12:45)
[2017-08-13 13:00] VITALS: BP 160/60; PULSE 94; RESP 17; O2SAT 94
[2017-08-13 13:30] VITALS: BP 130/71; PULSE 95; RESP 18; O2SAT 95
--- NOTE | 2017-08-13 13:56 | RADRPT ---
EXAM DATE/TIME: 08/13/2017 11:53 [facility] COMPARISON: No previous studies available for comparison. INDICATIONS : Patient presents with metastatic lung cancer in need of port placement for treatment. MEDICAL HISTORY : LT gynecomastia cancer Smoker Anxiety Arthritis PE DVT COPD SURGICAL HISTORY : Cholecystectomy Hip surgery LT and RT Colonoscopy ENCOUNTER: Initial ACUITY: 4-6 days PAIN SCORE: 8/10 LOCATION: Left arm and chest FLUORO TIME: 0.36 minutes IMAGE SERIES: 1 SEDATION TIME: 15 minutes ACCESS: Right internal jugular vein SEDATION: 1.) 3 mg midazolam (Versed) IV 2.) 150 mcg fentanyl (Sublimaze) IV Prophylactic antibiotics were administered with appropriate pre-procedure timing. Vancomycin within 2 hours of procedure, Ancef (or alternative) within 1 hour of procedure. DEVICE: 1. 8 Kinyarwanda single lumen Bio Rufino Port PROCEDURE : 1. Continuous pulse oximetry and EKG monitoring. 2. Intravenous conscious sedation. 3. Ultrasound guidance for venous access. 4. Fluoroscopic guided implantable central venous port placement. The patient was placed supine. The neck was prepped in sterile fashion. Full sterile technique was u sed, including cap, mask, sterile gloves and gown, and a large sterile sheet. Hand hygiene and 2% ch lorhexidine Betadine was utilized per protocol for cutaneous antisepsis with appropriate dry time for site. Sterile gel and sterile probe cover were utilized for ultrasound guidance. The skin and sub cutaneous tissues were infiltrated with local anesthetic solution. Under direct ultrasound guidance, central venous access was accomplished in the targeted vessel. The ultrasound images depicting access guidance were stored and saved to PACS for permanent record. A s ubcutaneous pocket was created using blunt dissection. The port was introduced to the pocket. The c atheter tubing was fed through a subcutaneous tunnel to the venotomy site. The catheter tubing was c ut to a suitable length and then was introduced through a valved Peel-Away sheath and positioned with catheter tubing tip at the cavo-atrial junction level. The pocket incision was closed with subcutic ular Vicryl suture. Steri-Strips were applied. The port was flushed and locked with heparin solutio n per protocol. Sterile dressing was applied to the site. The patient tolerated the procedure well. Conscious sedation was performed with the prescribed dosages and duration as above in the presence of an independent trained radiology nurse to assist in the monitoring of the patient. EKG and oximetry remained stable throughout the procedure. The patient tolerated the procedure well and there were no complications. The patient was sent to post anesthesia recovery in stable condition. CONCLUSION: Uncomplicated ultrasound and fluoroscopic guided implanted central venous port catheter placement as described in detail above. An 8 Kinyarwanda Power port was placed. Naeem Manriquez MD on August 13, 2017 at 13:53 Board Certified Radiologist. This report was verified electronically.
== END 2017-08-13 14:30 | disposition home or self-care (01) ==
LOC: HROP 09:57 → HRIP 10:01 → HROP 14:30
PROVIDERS: ATTEND Internal Medicine
DX: Z45.2 Encounter for adjustment and management of vascular access device (principal); C34.90 Malignant neoplasm of unspecified part of unspecified bronchus or lung; R65.10 Systemic inflammatory response syndrome (SIRS) of non-infectious origin without acute organ dysfunction; I10 Essential (primary) hypertension; I26.99 Other pulmonary embolism without acute cor pulmonale; Z79.01 Long term (current) use of anticoagulants
CPT/HCPCS: 36561; 76937; 77001; 85610; 85730; 99152; C1788; J1642; J2250; J3010; J3370; J7050

== ENCOUNTER 2017-10-29 11:42 | Inpatient (IN) ==
[2017-10-29] MEDS ORDERED: Sodium Chlor 0.9% Inj 500 ML IV.SIG ONE (12:11)
--- NOTE | 2017-10-29 13:03 | ED ---
HPI General Chief complaint: Respiratory Symptoms Stated complaint: SOB Time Seen by Provider: 10/29/17 11:59 Source: patient and EMS Mode of arrival: EMS Limitations: no limitations History of Present Illness HPI narrative: 72-year-old male with history of lymphoma says that he has been binge drinking for past 2 weeks. His last drink however was yesterday. The binge drinking is because patient has been quite depressed about his health condition. Today he called EMS since he was having trouble breathing. Patient requires 3 L of oxygen at home on a regular basis and his oxygen saturation was 100% on 3 L. He says that his last radiation was 1 week ago. He sees Dr. Silveira for radiation and Dr. Lindsey for his oncology. He has been shaky today. No history of nausea vomiting. No history of chest pain. No history of syncopal episode. Patient has a rash that is in his left axilla from radiation. This has been soaking the shirt as well. It has some foul-smelling quality to it. Patient had a temperature of 99 and was tachycardic upon arrival. He is however awake and answering questions appropriately. Denies of any cough or productive sputum. He has history of COPD. Related Data Home Medications Medication Instructions Recorded Confirmed albuterol sulfate [Ventolin HFA] 2 puff INHALATION Q4-6H PRN 10/29/17 10/29/17 atorvastatin 20 mg PO DAILY 10/29/17 10/29/17 fluticasone-vilanterol [Breo 1 inh INHALATION DAILY 10/29/17 10/29/17 Ellipta] ipratropium-albuterol 3 ml INHALATION QID 10/29/17 10/29/17 lisinopril 10 mg PO BID 10/29/17 10/29/17 lorazepam 1 mg PO BID 10/29/17 10/29/17 metoprolol tartrate 25 mg PO BID 10/29/17 10/29/17 pantoprazole 40 mg PO DAILY 10/29/17 10/29/17 Allergies Allergy/AdvReac Type Severity Reaction Status Date / Time No Known Allergies Allergy Unknown Uncoded 08/13/17 10:45 Review of Systems ROS Unobtainable All other systems reviewed negative except as stated in HPI Respiratory Reports dyspnea Integumentary/Breasts Reports rash [facility] Medical History Medical History Alcohol dependence (Acute) Anxiety (Acute) Barretts esophagus (Acute) COPD (chronic obstructive pulmonary disease) (Acute) GERD (gastroesophageal reflux disease) (Acute) Hyperlipidemia (Acute) Hypertension (Acute) Hypothyroidism (Acute) Lymphedema of left upper extremity (Acute) Peripheral arterial disease (Acute) Skin cancer (Acute) Squamous cell carcinoma of unknown origin (Acute) Surgical History Surgical History Port-A-Cath in place (Acute) Abnormal colonoscopy (Acute) H/O angioplasty (Acute) History of hip replacement (Acute) Status post bilateral total hip replacement (Acute) Family History Family History Mother Natural with unknown cause Social History Social History Substance History: No History of Abuse Second Hand Smoke Exposure: No Smoking Status: Current every day smoker Tobacco Type: Cigarettes How Often Do You Have a Drink Containing Alcohol: 4 or more times a week (Was drinking approximately 1 quart of rum daily for the past 2 weeks) Recent Travel in [place] within the Last 8 Weeks: No Recent Out of Country Travel within the Last 8 Weeks: No Immunization History Tetanus Immunization: >5 Years Hx Influenza Vaccine This Season: No Exam Narrative Exam Narrative: GENERAL: Awake, alert, anxious, moderate distress SKIN: Focused skin assessment warm/dry. Foul-smelling excoriating lesion in the left axilla that is large with majority of the epidermis gone and exposed subcutaneous tissue. There is some foul-smelling discharge. HEAD: Atraumatic. Normocephalic. EYES: Pupils equal and round. No scleral icterus. No injection or drainage. ENT: No nasal bleeding or discharge. Mucous membranes pink and moist. NECK: Trachea midline. No JVD. CARDIOVASCULAR: Regular rate and rhythm. No murmur appreciated. RESPIRATORY: No accessory muscle use. Clear to auscultation. Breath sounds equal bilaterally. GASTROINTESTINAL: Abdomen soft, non-tender, nondistended. Hepatic and splenic margins not palpable. MUSCULOSKELETAL: No obvious deformities. No clubbing. No cyanosis. No edema. NEUROLOGICAL: Awake and alert. No obvious cranial nerve deficits. Motor grossly within normal limits. Normal speech. Coarse resting tremor PSYCHIATRIC: Appropriate mood and affect; insight and judgment normal. Course Reevaluation(s) Reevaluation #1: Patient has some critical lab values including significantly low hemoglobin and platelet count. Patient is leukopenic but has significant neutrophils, bandemia and toxic granulocytes. Based on these I have ordered 2 units of PRBC transfusion and platelet transfusion. I discussed the case with his oncologist who recommended adding vancomycin. After he noticed the bandemia and the toxic granulocyte I have ordered cefepime as well. Patient's troponin is elevated. I have ordered a CT pulmonary angiogram to rule out PE given his shortness of breath and high risk from his cancer. He was given 1 mg of IV Ativan for possible alcohol withdrawal. Alcohol level is 0. Once the CT is done and resulted I will discuss the case with the hospitalist to admit him. Patient has been made aware of his condition and the admission. He is okay with the plan. Time: 14:15 Initial Documented Vital Signs Temperature 99.0 F 10/29/17 12:44 Pulse Rate 100 H 10/29/17 12:44 Respiratory Rate 26 H 10/29/17 12:44 Blood Pressure 170/85 H 10/29/17 12:44 Pulse Oximetry 100 10/29/17 12:44 Last Documented Vital Signs Temperature 97.9 F 11/02/17 04:00 Pulse Rate 109 H 11/02/17 08:28 Respiratory Rate 26 H 11/02/17 08:28 Blood Pressure 125/65 11/02/17 04:00 Pulse Oximetry 98 11/02/17 08:28 Critical Care Time Critical Care Time: Yes Total Critical Care Time: 45 Attestation: Sepsis, anemia, thrombocytopenia, blood transfusion, platelet transfusion, sepsis protocol Medical Decision Making [facility] Narrative Medical decision making narrative: 2:[address] pulmonary angiogram does not show PE but a developing pneumonitis. I discussed the case with the hospitalist who has accepted the patient. Lab Data Result diagrams: 11/02/17 03:55 11/02/17 03:55 Lab Results 10/29/17 10/29/17 10/29/17 Range/Units 12:32 12:32 12:32 WBC 1.9 L (4.0-11.0) th/mm3 RBC 1.70 L (4.50-5.90) mil/mm3 Hgb 5.9 L* (13.0-17.0) gm/dL Hct 17.2 L* (39.0-51.0) % MCV 100.9 H (80.0-100.0) fL MCH 34.4 H (27.0-34.0) pg MCHC 34.1 (32.0-36.0) % RDW 24.9 H (11.6-17.2) % Plt Count 15 L* (150-450) th/mm3 MPV 8.0 (7.0-11.0) fL Prelim Diff (Auto) Slide review pending Neut % (Auto) 76.3 H (16.0-70.0) % Lymph % (Auto) 12.3 (9.0-44.0) % Graham % (Auto) 11.2 H (0.0-8.0) % Eos % (Auto) 0.1 (0.0-4.0) % Baso % (Auto) 0.1 (0.0-2.0) % Neut # (Auto) 1.5 L (1.8-7.7) th/mm3 Lymph # (Auto) 0.2 L (1.0-4.8) th/mm3 [place] # (Auto) 0.2 (0.0-0.9) th/mm3 Eos # (Auto) 0.0 (0.0-0.4) th/mm3 Baso # (Auto) 0.0 (0.0-0.2) th/mm3 WBC Differential Manual diff final Diff Scan Seg Neuts % (Manual) 68 (16-70) % Band Neuts % (Manual) 14 H (0-6) % Lymphocytes % (Manual) 11 (9-44) % Monocytes % (Manual) 7 (0-8) % Eosinophils % (Manual) (0-4) % Basophils % (Manual) (0-2) % Metamyelocytes % (Man) (0-1) % Abs Neuts (Manual) 1.6 L (1.8-7.7) th/mm3 Nucleated RBCs/100 WBC (0-0) /100 WBC Differential Comment . Toxic Granulation 2+ H (None) Platelet Estimate Rare L (Normal) Platelet Morphology Normal (Normal) Ovalocytes (None) Sodium 139 (136-145) meq/L Potassium 4.6 (3.5-5.1) meq/L Chloride 104 (98-107) meq/L Carbon Dioxide 22.8 (21.0-32.0) meq/L Anion Gap 12 (5-15) meq/L BUN 27 H (7-18) mg/dL Creatinine 0.79 (0.60-1.30) mg/dL Estimated GFR Greater than 89 (>89) mL/min Random Glucose 114 H (74-106) mg/dL Lactic Acid (0.4-2.0) mmol/L Calcium 9.0 (8.5-10.1) mg/dL Total Bilirubin 0.8 (0.2-1.0) mg/dL AST 18 (15-37) U/L ALT 13 (12-78) U/L Alkaline Phosphatase 105 (45-117) U/L Total Creatine Kinase (39-308) U/L Troponin I 0.52 H (0.02-0.05) ng/mL B-Natriuretic Peptide 51 (0-100) pg/mL Total Protein 6.3 L (6.4-8.2) g/dL Albumin 2.8 L (3.4-5.0) g/dL Urine Color (Yellw/Straw) Urine Clarity (Clear) Urine pH (5.0-8.5) Ur Specific [place] (1.002-1.035) Urine Protein (Neg-Trace) mg/dL Urine Glucose (UA) (Negative) mg/dL Urine Ketones (Negative) mg/dL Urine Occult Blood (Negative) Urine Nitrate (Negative) Urine Bilirubin (Negative) Urine Urobilinogen (Less than 2) mg/dL Ur Leukocyte Esterase (Negative) Urine Mucus (Occasional) /lpf Micro UA Comment Urine Culture Comments Serum Alcohol Less than 3 (0-5) mg/dL Blood Type Antibody Screen Ab Screen Tube Method Antibody Identification Crossmatch MTS Gel Crossmatch Bld Prod Order Comment 10/29/17 10/29/17 10/29/17 Range/Units 13:10 13:38 13:38 WBC (4.0-11.0) th/mm3 RBC (4.50-5.90) mil/mm3 Hgb (13.0-17.0) gm/dL Hct (39.0-51.0) % MCV (80.0-100.0) fL MCH (27.0-34.0) pg MCHC (32.0-36.0) % RDW (11.6-17.2) % Plt Count (150-450) th/mm3 MPV (7.0-11.0) fL Prelim Diff (Auto) Neut % (Auto) (16.0-70.0) % Lymph % (Auto) (9.0-44.0) % [place] % (Auto) (0.0-8.0) % Eos % (Auto) (0.0-4.0) % Baso % (Auto) (0.0-2.0) % Neut # (Auto) (1.8-7.7) th/mm3 Lymph # (Auto) (1.0-4.8) th/mm3 [place] # (Auto) (0.0-0.9) th/mm3 Eos # (Auto) (0.0-0.4) th/mm3 Baso # (Auto) (0.0-0.2) th/mm3 WBC Differential Diff Scan Seg Neuts % (Manual) (16-70) % Band Neuts % (Manual) (0-6) % Lymphocytes % (Manual) (9-44) % Monocytes % (Manual) (0-8) % Eosinophils % (Manual) (0-4) % Basophils % (Manual) (0-2) % Metamyelocytes % (Man) (0-1) % Abs Neuts (Manual) (1.8-7.7) th/mm3 Nucleated RBCs/100 WBC (0-0) /100 WBC Differential Comment Toxic Granulation (None) Platelet Estimate (Normal) Platelet Morphology (Normal) Ovalocytes (None) Sodium (136-145) meq/L Potassium (3.5-5.1) meq/L Chloride (98-107) meq/L Carbon Dioxide (21.0-32.0) meq/L Anion Gap (5-15) meq/L BUN (7-18) mg/dL Creatinine (0.60-1.30) mg/dL Estimated GFR (>89) mL/min Random Glucose (74-106) mg/dL Lactic Acid 1.5 (0.4-2.0) mmol/L Calcium (8.5-10.1) mg/dL Total Bilirubin (0.2-1.0) mg/dL AST (15-37) U/L ALT (12-78) U/L Alkaline Phosphatase (45-117) U/L Total Creatine Kinase (39-308) U/L Troponin I (0.02-0.05) ng/mL B-Natriuretic Peptide (0-100) pg/mL Total Protein (6.4-8.2) g/dL Albumin (3.4-5.0) g/dL Urine Color (Yellw/Straw) Urine Clarity (Clear) Urine pH (5.0-8.5) Ur Specific [place] (1.002-1.035) Urine Protein (Neg-Trace) mg/dL Urine Glucose (UA) (Negative) mg/dL Urine Ketones (Negative) mg/dL Urine Occult Blood (Negative) Urine Nitrate (Negative) Urine Bilirubin (Negative) Urine Urobilinogen (Less than 2) mg/dL Ur Leukocyte Esterase (Negative) Urine Mucus (Occasional) /lpf Micro UA Comment Urine Culture Comments Serum Alcohol (0-5) mg/dL Blood Type A Negative Antibody Screen Positive H Ab Screen Tube Method Negative Antibody Identification Non-Specific Agglutinin Crossmatch See Detail MTS Gel Crossmatch See Detail Bld Prod Order Comment 10/29/17 10/29/17 10/30/17 Range/Units 15:00 22:37 04:10 WBC (4.0-11.0) th/mm3 RBC (4.50-5.90) mil/mm3 Hgb (13.0-17.0) gm/dL Hct (39.0-51.0) % MCV (80.0-100.0) fL MCH (27.0-34.0) pg MCHC (32.0-36.0) % RDW (11.6-17.2) % Plt Count (150-450) th/mm3 MPV (7.0-11.0) fL Prelim Diff (Auto) Neut % (Auto) (16.0-70.0) % Lymph % (Auto) (9.0-44.0) % [place] % (Auto) (0.0-8.0) % Eos % (Auto) (0.0-4.0) % Baso % (Auto) (0.0-2.0) % Neut # (Auto) (1.8-7.7) th/mm3 Lymph # (Auto) (1.0-4.8) th/mm3 [place] # (Auto) (0.0-0.9) th/mm3 Eos # (Auto) (0.0-0.4) th/mm3 Baso # (Auto) (0.0-0.2) th/mm3 WBC Differential Diff Scan Seg Neuts % (Manual) (16-70) % Band Neuts % (Manual) (0-6) % Lymphocytes % (Manual) (9-44) % Monocytes % (Manual) (0-8) % Eosinophils % (Manual) (0-4) % Basophils % (Manual) (0-2) % Metamyelocytes % (Man) (0-1) % Abs Neuts (Manual) (1.8-7.7) th/mm3 Nucleated RBCs/100 WBC (0-0) /100 WBC Differential Comment Toxic Granulation (None) Platelet Estimate (Normal) Platelet Morphology (Normal) Ovalocytes (None) Sodium 139 (136-145) meq/L Potassium 3.9 (3.5-5.1) meq/L Chloride 105 (98-107) meq/L Carbon Dioxide 21.2 (21.0-32.0) meq/L Anion Gap 13 (5-15) meq/L BUN 18 (7-18) mg/dL Creatinine 0.60 (0.60-1.30) mg/dL Estimated GFR Greater than 89 (>89) mL/min Random Glucose 102 (74-106) mg/dL Lactic Acid (0.4-2.0) mmol/L Calcium 8.6 (8.5-10.1) mg/dL Total Bilirubin 1.2 H (0.2-1.0) mg/dL AST 22 (15-37) U/L ALT 12 (12-78) U/L Alkaline Phosphatase 87 (45-117) U/L Total Creatine Kinase 110 130 (39-308) U/L Troponin I 1.12 H* 1.93 H* (0.02-0.05) ng/mL B-Natriuretic Peptide (0-100) pg/mL Total Protein 5.6 L D (6.4-8.2) g/dL Albumin 2.5 L (3.4-5.0) g/dL Urine Color Yellow (Yellw/Straw) Urine Clarity Clear (Clear) Urine pH 5.0 (5.0-8.5) Ur Specific [place] 1.016 (1.002-1.035) Urine Protein Negative (Neg-Trace) mg/dL Urine Glucose (UA) Negative (Negative) mg/dL Urine Ketones 20 (Negative) mg/dL Urine Occult Blood Negative (Negative) Urine Nitrate Negative (Negative) Urine Bilirubin Negative (Negative) Urine Urobilinogen Less than 2 (Less than 2) mg/dL Ur Leukocyte Esterase Negative (Negative) Urine Mucus Few H (Occasional) /lpf Micro UA Comment Culture not ind Urine Culture Comments Culture not ind Serum Alcohol (0-5) mg/dL Blood Type Antibody Screen Ab Screen Tube Method Antibody Identification Crossmatch MTS Gel Crossmatch Bld Prod Order Comment 10/30/17 10/31/17 10/31/17 Range/Units 04:10 06:40 06:40 WBC 1.8 L 1.2 L (4.0-11.0) th/mm3 RBC 2.49 L 2.18 L (4.50-5.90) mil/mm3 Hgb 8.2 L D 7.1 L (13.0-17.0) gm/dL Hct 23.9 L 20.8 L* (39.0-51.0) % MCV 96.0 D 95.4 (80.0-100.0) fL MCH 32.9 32.7 (27.0-34.0) pg MCHC 34.3 34.3 (32.0-36.0) % RDW 23.0 H 20.5 H D (11.6-17.2) % Plt Count 30 L D 23 L (150-450) th/mm3 MPV 6.9 L 7.9 (7.0-11.0) fL Prelim Diff (Auto) Slide review pending Slide review pending Neut % (Auto) 72.1 H 66.2 (16.0-70.0) % Lymph % (Auto) 17.6 22.9 (9.0-44.0) % [place] % (Auto) 9.0 H 9.2 H (0.0-8.0) % Eos % (Auto) 1.0 1.3 (0.0-4.0) % Baso % (Auto) 0.3 0.4 (0.0-2.0) % Neut # (Auto) 1.3 L 0.8 L (1.8-7.7) th/mm3 Lymph # (Auto) 0.3 L 0.3 L (1.0-4.8) th/mm3 [place] # (Auto) 0.2 0.1 (0.0-0.9) th/mm3 Eos # (Auto) 0.0 0.0 (0.0-0.4) th/mm3 Baso # (Auto) 0.0 0.0 (0.0-0.2) th/mm3 WBC Differential Manual diff final Manual diff final Diff Scan Seg Neuts % (Manual) 70 59 (16-70) % Band Neuts % (Manual) 6 3 (0-6) % Lymphocytes % (Manual) 18 27 (9-44) % Monocytes % (Manual) 3 5 (0-8) % Eosinophils % (Manual) 1 4 (0-4) % Basophils % (Manual) 1 1 (0-2) % Metamyelocytes % (Man) 1 1 (0-1) % Abs Neuts (Manual) 1.4 L 0.8 L (1.8-7.7) th/mm3 Nucleated RBCs/100 WBC 1 H (0-0) /100 WBC Differential Comment . . Toxic Granulation (None) Platelet Estimate Low L Low L (Normal) Platelet Morphology Normal Normal (Normal) Ovalocytes (None) Sodium 138 (136-145) meq/L Potassium 3.5 (3.5-5.1) meq/L Chloride 102 (98-107) meq/L Carbon Dioxide 23.8 (21.0-32.0) meq/L Anion Gap 12 (5-15) meq/L BUN 9 (7-18) mg/dL Creatinine 0.54 L (0.60-1.30) mg/dL Estimated GFR Greater than 89 (>89) mL/min Random Glucose 106 (74-106) mg/dL Lactic Acid (0.4-2.0) mmol/L Calcium 8.7 (8.5-10.1) mg/dL Total Bilirubin (0.2-1.0) mg/dL AST (15-37) U/L ALT (12-78) U/L Alkaline Phosphatase (45-117) U/L Total Creatine Kinase (39-308) U/L Troponin I (0.02-0.05) ng/mL B-Natriuretic Peptide (0-100) pg/mL Total Protein (6.4-8.2) g/dL Albumin (3.4-5.0) g/dL Urine Color (Yellw/Straw) Urine Clarity (Clear) Urine pH (5.0-8.5) Ur Specific [place] (1.002-1.035) Urine Protein (Neg-Trace) mg/dL Urine Glucose (UA) (Negative) mg/dL Urine Ketones (Negative) mg/dL Urine Occult Blood (Negative) Urine Nitrate (Negative) Urine Bilirubin (Negative) Urine Urobilinogen (Less than 2) mg/dL Ur Leukocyte Esterase (Negative) Urine Mucus (Occasional) /lpf Micro UA Comment Urine Culture Comments Serum Alcohol (0-5) mg/dL Blood Type Antibody Screen Ab Screen Tube Method Antibody Identification Crossmatch MTS Gel Crossmatch Bld Prod Order Comment 10/31/17 10/31/17 11/01/17 Range/Units 11:22 11:33 06:44 WBC 4.1 (4.0-11.0) th/mm3 RBC 3.02 L (4.50-5.90) mil/mm3 Hgb 9.8 L D (13.0-17.0) gm/dL Hct 28.1 L (39.0-51.0) % MCV 93.1 (80.0-100.0) fL MCH 32.5 (27.0-34.0) pg MCHC 34.9 (32.0-36.0) % RDW 17.8 H D (11.6-17.2) % Plt Count 17 L* (150-450) th/mm3 MPV 7.9 (7.0-11.0) fL Prelim Diff (Auto) Slide review pending Neut % (Auto) 85.3 H (16.0-70.0) % Lymph % (Auto) 9.2 (9.0-44.0) % [place] % (Auto) 4.6 (0.0-8.0) % Eos % (Auto) 0.5 (0.0-4.0) % Baso % (Auto) 0.4 (0.0-2.0) % Neut # (Auto) 3.5 (1.8-7.7) th/mm3 Lymph # (Auto) 0.4 L (1.0-4.8) th/mm3 [place] # (Auto) 0.2 (0.0-0.9) th/mm3 Eos # (Auto) 0.0 (0.0-0.4) th/mm3 Baso # (Auto) 0.0 (0.0-0.2) th/mm3 WBC Differential . Diff Scan Auto diff confirmed Seg Neuts % (Manual) (16-70) % Band Neuts % (Manual) (0-6) % Lymphocytes % (Manual) (9-44) % Monocytes % (Manual) (0-8) % Eosinophils % (Manual) (0-4) % Basophils % (Manual) (0-2) % Metamyelocytes % (Man) (0-1) % Abs Neuts (Manual) (1.8-7.7) th/mm3 Nucleated RBCs/100 WBC (0-0) /100 WBC Differential Comment . Toxic Granulation (None) Platelet Estimate Low L (Normal) Platelet Morphology Normal (Normal) Ovalocytes (None) Sodium (136-145) meq/L Potassium (3.5-5.1) meq/L Chloride (98-107) meq/L Carbon Dioxide (21.0-32.0) meq/L Anion Gap (5-15) meq/L BUN (7-18) mg/dL Creatinine (0.60-1.30) mg/dL Estimated GFR (>89) mL/min Random Glucose (74-106) mg/dL Lactic Acid (0.4-2.0) mmol/L Calcium (8.5-10.1) mg/dL Total Bilirubin (0.2-1.0) mg/dL AST (15-37) U/L ALT (12-78) U/L Alkaline Phosphatase (45-117) U/L Total Creatine Kinase (39-308) U/L Troponin I 1.45 H* (0.02-0.05) ng/mL B-Natriuretic Peptide (0-100) pg/mL Total Protein (6.4-8.2) g/dL Albumin (3.4-5.0) g/dL Urine Color (Yellw/Straw) Urine Clarity (Clear) Urine pH (5.0-8.5) Ur Specific [place] (1.002-1.035) Urine Protein (Neg-Trace) mg/dL Urine Glucose (UA) (Negative) mg/dL Urine Ketones (Negative) mg/dL Urine Occult Blood (Negative) Urine Nitrate (Negative) Urine Bilirubin (Negative) Urine Urobilinogen (Less than 2) mg/dL Ur Leukocyte Esterase (Negative) Urine Mucus (Occasional) /lpf Micro UA Comment Urine Culture Comments Serum Alcohol (0-5) mg/dL Blood Type Antibody Screen Ab Screen Tube Method Antibody Identification Crossmatch See Detail MTS Gel Crossmatch See Detail Bld Prod Order Comment 11/01/17 11/01/17 11/02/17 Range/Units 06:44 11:21 03:55 WBC 4.7 (4.0-11.0) th/mm3 RBC 2.75 L (4.50-5.90) mil/mm3 Hgb 8.9 L (13.0-17.0) gm/dL Hct 25.7 L (39.0-51.0) % MCV 93.4 (80.0-100.0) fL MCH 32.4 (27.0-34.0) pg MCHC 34.7 (32.0-36.0) % RDW 17.9 H (11.6-17.2) % Plt Count 33 L D (150-450) th/mm3 MPV 7.4 (7.0-11.0) fL Prelim Diff (Auto) Slide review pending Neut % (Auto) 85.5 H (16.0-70.0) % Lymph % (Auto) 8.9 L (9.0-44.0) % [place] % (Auto) 5.0 (0.0-8.0) % Eos % (Auto) 0.4 (0.0-4.0) % Baso % (Auto) 0.2 (0.0-2.0) % Neut # (Auto) 4.0 (1.8-7.7) th/mm3 Lymph # (Auto) 0.4 L (1.0-4.8) th/mm3 [place] # (Auto) 0.2 (0.0-0.9) th/mm3 Eos # (Auto) 0.0 (0.0-0.4) th/mm3 Baso # (Auto) 0.0 (0.0-0.2) th/mm3 WBC Differential . Diff Scan Auto diff confirmed Seg Neuts % (Manual) (16-70) % Band Neuts % (Manual) (0-6) % Lymphocytes % (Manual) (9-44) % Monocytes % (Manual) (0-8) % Eosinophils % (Manual) (0-4) % Basophils % (Manual) (0-2) % Metamyelocytes % (Man) (0-1) % Abs Neuts (Manual) (1.8-7.7) th/mm3 Nucleated RBCs/100 WBC (0-0) /100 WBC Differential Comment . Toxic Granulation (None) Platelet Estimate Low L (Normal) Platelet Morphology Normal (Normal) Ovalocytes 1+ H (None) Sodium 138 (136-145) meq/L Potassium 3.2 L (3.5-5.1) meq/L Chloride 99 (98-107) meq/L Carbon Dioxide 26.4 (21.0-32.0) meq/L Anion Gap 13 (5-15) meq/L BUN 7 (7-18) mg/dL Creatinine 0.63 (0.60-1.30) mg/dL Estimated GFR Greater than 89 (>89) mL/min Random Glucose 99 (74-106) mg/dL Lactic Acid (0.4-2.0) mmol/L Calcium 8.6 (8.5-10.1) mg/dL Total Bilirubin (0.2-1.0) mg/dL AST (15-37) U/L ALT (12-78) U/L Alkaline Phosphatase (45-117) U/L Total Creatine Kinase (39-308) U/L Troponin I (0.02-0.05) ng/mL B-Natriuretic Peptide (0-100) pg/mL Total Protein (6.4-8.2) g/dL Albumin (3.4-5.0) g/dL Urine Color (Yellw/Straw) Urine Clarity (Clear) Urine pH (5.0-8.5) Ur Specific [place] (1.002-1.035) Urine Protein (Neg-Trace) mg/dL Urine Glucose (UA) (Negative) mg/dL Urine Ketones (Negative) mg/dL Urine Occult Blood (Negative) Urine Nitrate (Negative) Urine Bilirubin (Negative) Urine Urobilinogen (Less than 2) mg/dL Ur Leukocyte Esterase (Negative) Urine Mucus (Occasional) /lpf Micro UA Comment Urine Culture Comments Serum Alcohol (0-5) mg/dL Blood Type Antibody Screen Ab Screen Tube Method Antibody Identification Crossmatch MTS Gel Crossmatch Bld Prod Order Comment 11/02/17 Range/Units 03:55 WBC (4.0-11.0) th/mm3 RBC (4.50-5.90) mil/mm3 Hgb (13.0-17.0) gm/dL Hct (39.0-51.0) % MCV (80.0-100.0) fL MCH (27.0-34.0) pg MCHC (32.0-36.0) % RDW (11.6-17.2) % Plt Count (150-450) th/mm3 MPV (7.0-11.0) fL Prelim Diff (Auto) Neut % (Auto) (16.0-70.0) % Lymph % (Auto) (9.0-44.0) % [place] % (Auto) (0.0-8.0) % Eos % (Auto) (0.0-4.0) % Baso % (Auto) (0.0-2.0) % Neut # (Auto) (1.8-7.7) th/mm3 Lymph # (Auto) (1.0-4.8) th/mm3 Graham # (Auto) (0.0-0.9) th/mm3 Eos # (Auto) (0.0-0.4) th/mm3 Baso # (Auto) (0.0-0.2) th/mm3 WBC Differential Diff Scan Seg Neuts % (Manual) (16-70) % Band Neuts % (Manual) (0-6) % Lymphocytes % (Manual) (9-44) % Monocytes % (Manual) (0-8) % Eosinophils % (Manual) (0-4) % Basophils % (Manual) (0-2) % Metamyelocytes % (Man) (0-1) % Abs Neuts (Manual) (1.8-7.7) th/mm3 Nucleated RBCs/100 WBC (0-0) /100 WBC Differential Comment Toxic Granulation (None) Platelet Estimate (Normal) Platelet Morphology (Normal) Ovalocytes (None) Sodium 138 (136-145) meq/L Potassium 3.6 (3.5-5.1) meq/L Chloride 101 (98-107) meq/L Carbon Dioxide 26.7 (21.0-32.0) meq/L Anion Gap 10 (5-15) meq/L BUN 8 (7-18) mg/dL Creatinine 0.76 (0.60-1.30) mg/dL Estimated GFR Greater than 89 (>89) mL/min Random Glucose 115 H (74-106) mg/dL Lactic Acid (0.4-2.0) mmol/L Calcium 8.4 L (8.5-10.1) mg/dL Total Bilirubin 0.4 (0.2-1.0) mg/dL AST 11 L (15-37) U/L ALT 9 L (12-78) U/L Alkaline Phosphatase 90 (45-117) U/L Total Creatine Kinase (39-308) U/L Troponin I (0.02-0.05) ng/mL B-Natriuretic Peptide (0-100) pg/mL Total Protein 5.5 L (6.4-8.2) g/dL Albumin 2.3 L (3.4-5.0) g/dL Urine Color (Yellw/Straw) Urine Clarity (Clear) Urine pH (5.0-8.5) Ur Specific [place] (1.002-1.035) Urine Protein (Neg-Trace) mg/dL Urine Glucose (UA) (Negative) mg/dL Urine Ketones (Negative) mg/dL Urine Occult Blood (Negative) Urine Nitrate (Negative) Urine Bilirubin (Negative) Urine Urobilinogen (Less than 2) mg/dL Ur Leukocyte Esterase (Negative) Urine Mucus (Occasional) /lpf Micro UA Comment Urine Culture Comments Serum Alcohol (0-5) mg/dL Blood Type Antibody Screen Ab Screen Tube Method Antibody Identification Crossmatch MTS Gel Crossmatch Bld Prod Order Comment Imaging Data Radiologist's impression: Chest CTA 10/29/17 12:11 CONCLUSION: 1. No evidence of pulmonary embolism. 2. New subsegmental airspace disease in the right lower lobe characteristic of pneumonitis. 3. Decreasing size of left axillary mass. 4. No other significant change. Chest X-Ray 10/29/17 12:11 CONCLUSION: Negative for acute process. ECG Data Attestation: I personally reviewed and interpreted this ECG as follows: Interpretation: Twelve-lead EKG was reviewed by me. Normal sinus rhythm, normal axis, nonspecific ST-T wave changes. Heart rate of 94 bpm. Discharge Plan Discharge Disposition Patient Disposition: 30 Still Patient Discharge Details Diagnosis: Sepsis, Pneumonia, Anemia, Thrombocytopenia, Alcohol withdrawal, Lymphoma, Elevated troponin I level Physicians Team ED Provider: Roberto Wagner Primary Care Provider: Ryley Rodgers Attending Provider: Milan Bazzi Other Providers: Alfredo Lindsey ; Osvaldo Silverman ; Vidal Bailey ; Diann Church ; Mikey Hess ; [facility] Discharge Interventions Interventions: ED Discharge Assessment Last Done: 10/29/17 19:34 Status ED Status: Left Department Discharge Information Discharge Date/Time: 10/29/17 19:35
[2017-10-29 13:06] LABS: Baso % (Auto) 0.1 % (0.0-2.0); Eos % (Auto) 0.1 % (0.0-4.0); Lymph # (Auto) 0.2 th/mm3 (1.0-4.8); Lymph % (Auto) 12.3 % (9.0-44.0); Mean Corpuscular HGB Conc 34.1 % (32.0-36.0); Mean Corpuscular Hemoglobin 34.4 pg (27.0-34.0); Mean Corpuscular Volume 100.9 fL (80.0-100.0); Mono # (Auto) 0.2 th/mm3 (0.0-0.9); Mono % (Auto) 11.2 % (0.0-8.0); Neut # (Auto) 1.5 th/mm3 (1.8-7.7); Neut % (Auto) 76.3 % (16.0-70.0); Red Cell Distribution Width 24.9 % (11.6-17.2); White Blood Count 1.9 th/mm3 (4.0-11.0)
--- NOTE | 2017-10-29 13:15 | XR ---
EXAM DATE: 10/29/2017 1:03 PM EDT AGE/SEX: 72 years / Male INDICATIONS: Shortness of breath. CLINICAL DATA: This is the patient's initial encounter. Patient reports that signs and symptoms have been present for 1 day and indicates a pain score of 0/10. MEDICAL/SURGICAL HISTORY: Hypertension. Gastroesophageal reflux disease. Chronic obstructive pulmonary disease. Skin cancer. . Cardiac stents. COMPARISON: [facility], CHEST PA & LAT, 01/16/2017. . FINDINGS: [id number] in place on the right, with a loop in the jugular vein. Lungs are clear. The heart and pulmonary vascularity are normal. The portion of the bony skeleton visualized is unremarkable. CONCLUSION: Negative for acute process. Electronically signed by: Renzo Diane MD 10/29/2017 1:14 PM EDT
[2017-10-29 13:17] LABS: Hematocrit 17.2 % (39.0-51.0); Hemoglobin 5.9 gm/dL (13.0-17.0)
[2017-10-29 13:18] LABS: Platelet Count 15 th/mm3 (150-450)
[2017-10-29 13:30] LABS: Albumin 2.8 g/dL (3.4-5.0); Anion Gap 12 meq/L (5-15); Aspartate Aminotransferase 18 U/L (15-37); Blood Urea Nitrogen 27 mg/dL (7-18); Carbon Dioxide 22.8 meq/L (21.0-32.0); Chloride 104 meq/L (98-107); Glomerular Filtration Rate Greater Than 89 mL/min (>89); Glucose,Random 114 mg/dL (74-106); Potassium 4.6 meq/L (3.5-5.1); Sodium 139 meq/L (136-145)
[2017-10-29 13:36] LABS: Alanine Aminotransferase 13 U/L (12-78); Alkaline Phosphatase 105 U/L (45-117); Total Protein 6.3 g/dL (6.4-8.2); Troponin I 0.52 ng/mL (0.02-0.05)
[2017-10-29 13:54] LABS: Lymphocytes 11 % (9-44); Monocytes 7 % (0-8)
[2017-10-29 13:55] LABS: Platelet Estimate Rare (Normal); Platelet Morphology Normal (Normal); Toxic Granulation 2+
[2017-10-29] MEDS ORDERED: Vancomycin Inj 1 GM/200 ML PIGGYBACK IV.SIG SCH (14:00)
[2017-10-29] MEDS ORDERED: Sodium Chlor 0.9% Inj 250 ML IV.SIG SCH (14:00)
[2017-10-29] MEDS ORDERED: Sod Chloride 0.9% Inj 1,000 ML IV.SIG ONE (14:01)
--- NOTE | 2017-10-29 14:38 | CT ---
EXAM DATE: 10/29/2017 2:19 PM EDT AGE/SEX: 72 years / Male INDICATIONS: Short of breath. CLINICAL DATA: This is the patient's initial encounter. Patient reports that signs and symptoms have been present for 2 weeks and indicates a pain score of 0/10. MEDICAL/SURGICAL HISTORY: Chronic obstructive pulmonary disease. Hypertension. Lymphoma. None. RADIATION DOSE: 19.26 CTDI (mGy) COMPARISON: POI, CT CHEST W/ CONTRAST, 07/13/2017. . TECHNIQUE: Volumetric scanning was performed using a multi-row detector CT scanner during bolus infu sven of 73 ml Omnipaque 350 (iohexol) nonionic water-soluble contrast as a single exam dose. The silvio a was post processed with a variety of visualization algorithms including full volume maximum intensi ty projection and sliding thin slab reformation. Using automated exposure control and adjustment of t he mA and/or kV according to patient size, radiation dose was kept as low as reasonably achievable to obtain optimal diagnostic quality images. DICOM format image data is available electronically for r eview and comparison. FINDINGS: Pulmonary Arteries: No filling defects are seen in the pulmonary arteries out to the subsegmental ve ssels. The left and right pulmonary arteries are normal in diameter. Lung: No subsegmental airspace disease has developed in the medial basilar segment of the right lowe r lobe. Small peripheral nodular opacity in the left upper lobe is stable. Changes of COPD are again noted. Effusion: None. Mediastinum: No evidence of mediastinal or hilar adenopathy. Other: Large left axillary mass has decreased in size and currently measures 7.4 x 8.2 cm in size. I t previously measured 9.3 x 12 cm in size. CONCLUSION: 1. No evidence of pulmonary embolism. 2. New subsegmental airspace disease in the right lower lobe characteristic of pneumonitis. 3. Decreasing size of left axillary mass. 4. No other significant change. Electronically signed by: Sanjeev Lin MD 10/29/2017 2:36 PM EDT
[2017-10-29] MEDS ORDERED: Vancomycin Inj 1,000 MG in Sodium Chlor 0.9% Inj 250 ML IV.SIG SCH (15:00)
--- NOTE | 2017-10-29 15:03 | P.HPIM ---
History of Present Illness Primary Care Physician: Ryley Rodgers MD Chief Complaint: SOB History of Present Illness: Mr. 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 Lindsey. Pt is also an alcoholic and has been drinking heavily the last 12 days, a quart of rum per day, due to some depression over his cancer diagnosis and the rigors of treatment. His last alcoholic beverage was yesterday and he does feel shaky today. He presented to the ED at [facility] on with complaints of SOB and pt felt like he was starting to go into alcohol withdrawals. He states that has been having SOB for the last few weeks with a cough with some clear colored phlegm. Denies any fevers or chills. Pt is normally on 2-3L of supplemental O2 at home. He states that his last radiation therapy was about 1 week ago. Pt has been having loose black stools 1-2 times daily, small amounts, for the last week. He has not been taking any prescription medications for the last 12 days while he has been drinking heavily. His labs in the ED noted WBC count 1.9, Hgb 5.9/Hct 17.2, Platelet count 15,000. His troponin was slightly elevated at 0.52. Pulmonary CTA with no evidence of PE, new subsegmental airspace disease in the right lower lobe characteristic of pneumonitis, decreasing size of left axillary mass, otherwise no other significant change. Pt denies any wheezing, chest pain, abdominal pain , fevers/chills, or palpitations. He has a rash in the left axilla which he reports is from radiation therapy and has reported some weeping from the wound. He states that the swelling in the LUE has been much better since the radiation therapy was started. Pt received Vancomycin and Cefepime in the ED and blood cultures were drawn prior to that. Past Medical Hx Stage IV metastatic squamous cell carcinoma of unclear primary (lung cancer suspected) undergoing chemo and XRT with Dr. 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 Alcohol dependence Anxiety COPD Reaves's esophagus Peripheral arterial disease Lumbar disc disease GERD Hypertension Hyperlipidemia Hyperthyroidism Hx of BCC Past Surgical History Cholecystectomy Colonoscopy 03/15/17 revealed 2 medium sized sessile polyps in the rectum, internal hemorrhoids EGD 03/15/2017 revealed irregular Z-line, erythematous gastritis in the gastric antrum Bilateral total hip replacement Angioplasty with atherectomy bilateral SFA Balloon angioplasty of left SFA and ORA in March 2016 Stenting left common iliac artery and right common iliac artery March 2016 Family History Noncontributory Social History (+)tobacco use, 1/2-1 ppd x 55+ years (+) alcohol use, binge drinking over the last 12 days, quart of rum per day Denies any illicit drug use Lives with his Retired from [employer] after 40 years Originally from [place], he moved to [place] in 1985 OUTPT medications: -Albuterol/Ipratropium Nebs QID -Atorvastatin Calcium 20 mg Oral daily -Lisinopril 10 mg PO BID -Lorazepam 1mg PO BID -Metoprolol Tartrate 25 mg PO BID -Pantoprazole Sodium 40 mg PO daily -ProAir HFA 1 (108 (90 Base) mcg/act) Aerosol, solution Inhalation four times a day ?Breo Ellipta 100-25 Inh Daily - Diagnosis (1) Anemia (2) Metastatic squamous cell carcinoma (3) COPD (chronic obstructive pulmonary disease) (4) Pancytopenia (5) HTN (hypertension) (6) Hyperlipidemia (7) Alcohol abuse (8) Elevated troponin I level Inpatient Certification: I certify that the inpatient services were ordered in accordance with Medicare regulations governing the order. This includes certification that hospital inpatient services are reasonable and necessary and in the case of services not specified as inpatient-only under 42 CFR 419.22(n), that they are appropriately provided as inpatient services in accordance to with the 2-midnight benchmark under 43 CFR 412.3(e) Review of Systems All other systems reviewed negative except as stated in HPI Constitutional: Denies chills, Denies fever(s) Eyes: Denies change in vision, Denies loss of vision Ears, Nose, Mouth, and Throat: Denies difficulty swallowing, Denies dizziness, Denies throat swelling Cardiovascular: Reports shortness of breath, Denies chest pain, Denies excessive sweating, Denies irregular heart rhythm Respiratory: Reports cough, Reports excessive phlegm production, Reports shortness of breath, Denies wheezing Gastrointestinal: Reports black, tarry stools, Reports change in bowel habits, Reports loose stools, Denies abdominal pain, Denies bright, red blood in stools , Denies nausea, Denies vomiting, Denies vomiting blood Genitourinary: Denies urinary frequency, Denies urinary incontinence Musculoskeletal: Denies back pain, Denies muscle weakness Skin/Breast: Reports non-healing lesions, Reports rash, Reports skin pain, Reports wounds Neurologic: Denies dizziness, Denies headache(s), Denies memory loss [facility] - History History Provided By: Patient, Medical Record - Medical History Medical History: Medical History (Last Reviewed 01/29/18 @ 10:23 by Noelle Hendrix) Alcohol dependence Anxiety Barretts esophagus Barretts esophagus COPD (chronic obstructive pulmonary disease) FHx: radiation therapy GERD (gastroesophageal reflux disease) GERD (gastroesophageal reflux disease) HTN (hypertension) High cholesterol History of blood transfusion History of chemotherapy Hyperlipidemia Hypertension Hypothyroidism Lymphedema of left upper extremity Peripheral arterial disease Skin cancer 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 - Surgical History Surgical History: Surgical History (Last Reviewed 01/29/18 @ 10:23 by Noelle Hendrix) Port-A-Cath in place (Acute) Abnormal colonoscopy H/O angioplasty History of hip replacement Hx of hernia repair Hx of shoulder surgery Status post bilateral total hip replacement - Family History Family History: Family History (Last Reviewed 01/29/18 @ 10:23 by Noelle Hendrix) Mother Natural with unknown cause - Tobacco History Second Hand Smoke Exposure: No Tobacco Use In Past 30 Days: No Smoking Status: Current every day smoker Tobacco Type: Cigarettes - Alcohol History How Often Do You Have a Drink Containing Alcohol: 4 or more times a week - Substance Use History Substance History: No History of Abuse - Travel History Recent Travel in the [place] Within the Last 8 Weeks: No Recent Travel Out of the Country Within the Last 8 Weeks: No - Immunization History Tetanus Immunization: >5 Years Hx Influenza Vaccine This Season: No Medications and Allergies Active Medications: Active Medications Sodium Chloride (Ns Inj) 250 mls @ 15 mls/hr IV.SIG ONCE KATIE Stop: 10/30/17 06:39 Vancomycin HCl 1,000 mg/ (Sodium Chloride) 250 mls @ 250 mls/hr IV.SIG EVENTS DIRECTOR KATIE Stop: 11/01/17 14:59 Allergies Allergy/AdvReac Type Severity Reaction Status Date / Time No Known Allergies Allergy Verified 01/17/18 14:33 Home Medications Medication Instructions Recorded Confirmed Type albuterol sulfate [Ventolin HFA] 2 puff INHALATION Q4-6H PRN 10/29/17 01/17/18 History atorvastatin 20 mg PO HS 10/29/17 01/17/18 History Exam Vital signs: Vital Signs 10/29/17 12:44 Temperature 99.0 F Pulse Rate 100 H Respiratory Rate 26 H Blood Pressure 170/85 H Pulse Oximetry 100 Intake & Output 10/28/17 10/29/17 10/29/17 18:59 06:59 18:59 Weight 72.575 kg Narrative: GENERAL: NAD, AAOx3 SKIN: Left axilla skin is raw, beefy with denuded skin and LUE/chest shoulder with radiation skin changes HEENT: Atraumatic. Normocephalic. Pupils equal and round. No scleral icterus. No injection or drainage. No nasal bleeding or discharge. Mucous membranes pink and moist. NECK: Trachea midline. No JVD. CARDIO: Regular, tachy RESP: No accessory muscle use. Clear to auscultation. Breath sounds equal bilaterally. ABD: +BS, soft, non-tender, nondistended. EXT: No LE edema edema. No obvious deformities. NEURO: Awake and alert. No obvious cranial nerve deficits. Motor grossly within normal limits. Five out of 5 muscle strength in the arms and legs. Normal speech. PSYCHIATRIC: Appropriate mood and affect; insight and judgment normal. Results - Labs CBC & Chem 7: 11/04/17 04:36 11/04/17 04:36 Labs: Short CBC 10/29/17 Range/Units 12:32 WBC 1.9 L (4.0-11.0) th/mm3 Hgb 5.9 L* (13.0-17.0) gm/dL Hct 17.2 L* (39.0-51.0) % Plt Count 15 L* (150-450) th/mm3 BMP 10/29/17 12:32 Sodium 139 Potassium 4.6 Chloride 104 Carbon Dioxide 22.8 BUN 27 H Creatinine 0.79 Calcium 9.0 Cardiac Enzymes 10/29/17 Range/Units 12:32 Troponin I 0.52 H (0.02-0.05) ng/mL Liver Function 10/29/17 Range/Units 12:32 Total Bilirubin 0.8 (0.2-1.0) mg/dL AST 18 (15-37) U/L ALT 13 (12-78) U/L Alkaline Phosphatase 105 (45-117) U/L Albumin 2.8 L (3.4-5.0) g/dL - Imaging Impressions Chest CTA 10/29/17 12:11 CONCLUSION: 1. No evidence of pulmonary embolism. 2. New subsegmental airspace disease in the right lower lobe characteristic of pneumonitis. 3. Decreasing size of left axillary mass. 4. No other significant change. Chest X-Ray 10/29/17 12:11 CONCLUSION: Negative for acute process. Caprini VTE Risk Assessment Caprini VTE Risk Assessment: Moderate/High Risk (score >= 2) Caprini Risk Assessment Model: Point Value = 1 Point Value = 2 Point Value = 3 Point Value = 5 Age 41-60 Minor surgery BMI > 25 kg/m2 Swollen legs Varicose veins or History of unexplained or recurrent spontaneous Oral contraceptives or hormone replacement Sepsis (< 1 month) Serious lung disease, including pneumonia (< 1 month) Abnormal pulmonary function Acute myocardial infarction Congestive heart failure (< 1 month) History of inflammatory bowel disease Medical patient at bed rest Age 61-74 Arthroscopic surgery Major open surgery (> 45 min) Laparoscopic surgery (> 45 min) Malignancy Confined to bed (> 72 hours) Immobilizing plaster cast Central venous access Age >= 75 History of VTE Family history of VTE Factor V Leiden Prothrombin [id number] Lupus anticoagulant Anticardiolipin antibodies Elevated serum homocysteine Heparin-induced thrombocytopenia Other congenital or acquired thrombophilia Stroke (< 1 month) Elective arthroplasty Hip, pelvis, or leg fracture Acute spinal cord injury (< 1 month) Prophylaxis Regimen: Total Risk Factor Score Risk Level Prophylaxis Regimen 0-1 Low Early ambulation 2 Moderate Order ONE of the following: *Sequential Compression Device (SCD) *Heparin 5000 units SQ BID 3-4 Higher Order ONE of the following medications: *Heparin 5000 units SQ TID *Enoxaparin/Lovenox 40 mg SQ daily (WT < 150 kg, CrCl > 30 mL/min) *Enoxaparin/Lovenox 30 mg SQ daily (WT < 150 kg, CrCl > 10-29 mL/min) *Enoxaparin/Lovenox 30 mg SQ BID (WT < 150 kg, CrCl > 30 mL/min) AND/OR *Sequential Compression Device (SCD) 5 or more Highest Order ONE of the following medications: *Heparin 5000 units SQ TID (Preferred with Epidurals) *Enoxaparin/Lovenox 40 mg SQ daily (WT < 150 kg, CrCl > 30 mL/min) *Enoxaparin/Lovenox 30 mg SQ daily (WT < 150 kg, CrCl > 10-29 mL/min) *Enoxaparin/Lovenox 30 mg SQ BID (WT < 150 kg, CrCl > 30 mL/min) AND *Sequential Compression Device (SCD) Assessment and Plan - Assessment (1) Anemia Code(s): D64.9 - Anemia, unspecified Status: Acute Plan: Acute on chronic anemia Pancytopenia Melanotic stools reported - Pt is a 72 y/o WM with 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 Lindsey. Pt is also an alcoholic and has been drinking heavily the last 12 days, a quart of rum per day, due to some depression over his cancer diagnosis and the rigors of treatment. - He presented to the ED at [facility] on 10/29/17 with complaints of SOB and pt felt like he was starting to go into alcohol withdrawals. - His labs in the ED noted WBC count 1.9, Hgb 5.9/Hct 17.2, Platelet count 15, 000. - Pt has been having loose black stools 1-2 times daily, small amounts, for the last week. - Pts SOB is likely multifactorial, related to his chronic COPD, acute on chronic anemia, and possible pneumonitis noted on imaging - ED has ordered PRBCs and platelet transfusion - Protonix 40mg IV BID - Pt had recent outpt EGD/colonoscopy on 03/15/17 which revealed irregular Z- line, erythematous gastritis in the gastric antrum, 2 medium sized sessile polyps in the rectum, internal hemorrhoids - Monitor labs closely - IVF - Supportive care - Chemical DVT prophylaxis is contraindicated with thrombocytopenia SOB, likely multifactorial COPD Possible pneumonitis on CTA - Pulmonary CTA with no evidence of PE, new subsegmental airspace disease in the right lower lobe characteristic of pneumonitis, decreasing size of left axillary mass, otherwise no other significant change. - His troponin was slightly elevated at 0.52. - Pt is normally on 2-3L of supplemental O2 at home. - Cont. home meds, Breo Ellipta - Duonebs Q4H scheduled Alcohol abuse EtOH withdrawal - His last alcoholic beverage was yesterday and he does feel shaky today. - CIWA protocol - Librium 25mg BID Stage IV metastatic SCC undergoing chemo and XRT Radiation dermatitis - Pt follows with Dr. Lindsey and Dr. Silveira for medical and radiation oncology - He has a rash in the left axilla which he reports is from radiation therapy and has reported some weeping from the wound. - Pt received Vancomycin and Cefepime in the ED and blood cultures were drawn prior to that. - Consult wound care - Await wound cultures - Monitor for any fevers - Pt reports that Dr. Lindsey came by to see the pt in the ED (2) Metastatic squamous cell carcinoma Code(s): C79.9 - Secondary malignant neoplasm of unspecified site Status: Acute (3) COPD (chronic obstructive pulmonary disease) Code(s): J44.9 - Chronic obstructive pulmonary disease, unspecified Status: Chronic (4) Pancytopenia Code(s): D61.818 - Other pancytopenia Status: Acute (5) HTN (hypertension) Code(s): I10 - Essential (primary) hypertension Status: Chronic (6) Hyperlipidemia Code(s): E78.5 - Hyperlipidemia, unspecified Status: Chronic (7) Alcohol abuse Code(s): F10.10 - Alcohol abuse, uncomplicated Status: Chronic (8) Elevated troponin I level Code(s): R74.8 - Abnormal levels of other serum enzymes Status: Acute (1) Anemia Qualifiers: Anemia type: unspecified type Qualified Code(s): D64.9 - Anemia, unspecified
[2017-10-29] MEDS ORDERED: Acetaminophen 325 MG Tablet PO PRN (15:09)
[2017-10-29] MEDS ORDERED: LORazepam 1 MG Tablet PO PRN (15:13)
[2017-10-29] MEDS ORDERED: Haloperidol Inj 5 MG/ML Ampul IV.PUSH PRN (15:13)
[2017-10-29 15:59] LABS: Bilirubin,Urine Negative (Negative); Clarity,Urine Clear (Clear); Color,Urine Yellow (Yellw/Straw); Glucose,Urine (UA) Negative (Negative); Leukocyte Esterase,Urine Negative (Negative); Mucus,Urine Few /lpf (Occasional); Nitrite,Urine Negative (Negative); Specific Gravity,Urine 1.016 (1.002-1.035)
[2017-10-29] MEDS: Pantoprazole Inj 40 MG Vial IV.PUSH SCH (18:58)
[2017-10-29] MEDS: Sod Chloride 0.9% Inj 1,000 ML IV.CONT SCH (18:59)
[2017-10-29] MEDS: Metoprolol Tartrate 25 MG Tablet PO SCH (21:06)
[2017-10-29] MEDS: Lisinopril 10 MG Tablet PO SCH (21:06)
[2017-10-29] MEDS: Senna/Docusate Sodium 8.6/50 MG Tablet PO SCH (21:06)
[2017-10-29] MEDS: chlordiazePOXIDE 25 MG Capsule PO SCH (21:07)
--- NOTE | 2017-10-29 23:08 | MB ---
cc: Alfredo Lindsey MD, Awais M MD DATE: 10/29/2017 REASON FOR CONSULTATION: The patient with a diagnosis of stage IV poorly differentiated squamous cell carcinoma, who presents to the emergency department with progressive shortness of breath and possible alcohol withdrawal. HISTORY OF PRESENT ILLNESS: This is a 72-year-old male who has a diagnosis of stage IV poorly differentiated squamous cell carcinoma of unknown primary diagnosed in 07/2017. A primary could not be determined based on the immunohistochemical studies: either lung cancer versus skin cancer is suspected. He had a large left supraclavicular mass, which caused significant lymphedema of the left arm. He did not have any metastatic disease to the abdomen. The left axillary mass was at least 12 cm and was invading into the pectoralis muscle. There were 2 additional masses in the left posterior supraclavicular region. The patient has undergone concurrent chemotherapy and radiation treatments. He is being treated with carboplatin and Taxol. His last chemotherapy was approximately 2 weeks ago. Unfortunately, he has been drinking over the past 2 weeks. He had reassured me in the past that he would not drink alcohol while receiving chemotherapy. He states that he has been drinking a quart of rum per day. He states that he could not cope with his diagnosis of cancer and started drinking. His last alcoholic beverage was approximately 24 hours ago. He has been feeling shaky and feeling cold. He also became progressively short of breath. He had difficulty getting out of his bed this morning. He complains of having loose black stools. He has raw skin on his left axilla secondary to radiation dermatitis. In the emergency room, he was found to have leukopenia with WBC of 1.9, hemoglobin was 5.9 and platelet count was 15,000. His troponins were slightly elevated. He underwent a CT angiogram of the chest which did not reveal any pulmonary embolism. There was a decrease in size of the left axillary mass. Right lower lobe pneumonitis was suspected. He denies any fevers or chills. He has occasional dry cough. REVIEW OF SYSTEMS: A comprehensive review of systems was completed which is negative except as described in the HPI. PAST MEDICAL HISTORY: Stage IV squamous cell carcinoma of unknown primary. Lung cancer is suspected. He has completed chemo and radiation. History of left upper extremity lymphedema, COPD, anxiety, alcohol dependence, Reaves's esophagus, peripheral arterial disease, gastroesophageal reflux disease, hypertension, hyperlipidemia, hypothyroidism, history of skin carcinoma status post resection. PAST SURGICAL HISTORY: Port placement, cholecystectomy, colonoscopy in 02/2017, EGD in 02/2017. Bilateral total hip replacement, angioplasty with atherectomy, balloon angioplasty of left SFA and ORA 03/2016. Stenting of the left common iliac artery and right common iliac artery 03/2016. FAMILY HISTORY: Reviewed and is noncontributory to this visit. SOCIAL HISTORY: He continues to smoke. He has more than a [id number] smoking history. He is also an alcoholic. He has been binge drinking for the past 12 days. He does not use any illicit drugs. He lives with his . He is retired. MEDICATIONS: 1. Vancomycin. 2. Tylenol p.r.n. 3. Zofran p.r.n. 4. Ativan p.r.n. 5. Haldol p.r.n. 6. Flumanezil p.r.n. 7. Duo Nebs p.r.n. 8. Protonix 40 IV, 10. Librium 25 mg p.o. b.i.d. 11. Lopressor 25 mg p.o. b.i.d. 12. Merced-Colace b.i.d. 13. Prinivil 10 mg p.o. b.i.d. 14. Breo Ellipta INH daily. 15. Lipitor 20 p.o. daily. ALLERGIES: NO KNOWN DRUG ALLERGIES. PHYSICAL EXAMINATION: VITAL SIGNS: Blood pressure is 146/70, pulse is in the 90s. Temperature 99.1. O2 saturations are 100% on 2 liters of nasal cannula. GENERAL: A chronically ill-appearing male, disheveled, in no apparent distress. HEENT: Pupils are equal, round, reactive to light. EOMI. No thrush or lesions. NECK: Supple. No JVD. No bruits. No lymphadenopathy. CHEST: Clear to auscultation bilaterally. CARDIAC: S1, S2, tachycardic. ABDOMEN: Soft, nontender, nondistended. Bowel sounds are present. EXTREMITIES: No edema, erythema or cyanosis. SKIN: No petechiae. There is radiation dermatitis under the left arm with raw skin exposed. NEUROLOGIC: No focal deficits. PSYCHIATRIC: Mood and affect is appropriate. LABORATORY DATA: WBC is 1.9, hemoglobin is 5.9, platelet count is 15, ANC is 1500. IMAGING STUDIES: Reviewed in the EMR. ASSESSMENT AND PLAN: This is a 72-year-old male with a history of stage IV poorly differentiated squamous cell carcinoma of unknown primary: Lung versus primary skin malignancy suspected. He has undergone concurrent chemotherapy. He presents to the emergency department with recent alcohol binge drinking, shortness of breath. 1. Dyspnea which is multifactorial due to radiation pneumonitis, COPD exacerbation and severe anemia. He also continues to smoke cigarettes. I agree with supportive care. Continue breathing treatments, supplemental oxygen and would consider steroids. 2. Severe anemia due to chemotherapy. We will need to rule out any underlying gastrointestinal bleeding. The patient is complaining of melanotic stools. I agree with gastroenterology evaluation. Transfuse 2 units of packed red blood cells daily. Monitor daily CBC, transfuse to keep hemoglobin greater than 7.5 unless he is bleeding or symptomatic, then he can be transfused to a higher hemoglobin. 3. Severe thrombocytopenia likely due to chemotherapy. I agree with transfusion of 1 unit of platelets. 4. Leukopenia. WBC is 1.9, ANC is greater than 1500. We will closely monitor his CBC. If it becomes progressively more leukopenic, then I would recommend daily Neupogen 480 mcg. 5. Left axillary area radiation dermatitis. I agree with IV vancomycin. Monitor blood cultures. Wound care. 6. Alcohol abuse/ETOH withdrawal, placed on CIWA protocol. He will need to go to a detoxification program, since I do not believe that he can completely stop drinking alcohol. 7. Stage IV squamous cell carcinoma of unknown primary. He has undergone chemo and radiation. 8. Further treatment will be decided in the outpatient setting. Thank you for allowing me to participate in the care of this patient. The patient will be seen by the oncology team over the weekend. MD SILVIA Dixon/ , 10:30 PM , 11:06 PM
[2017-10-30 00:04] LABS: Troponin I 1.12 ng/mL (0.02-0.05)
[2017-10-30 04:26] LABS: Baso % (Auto) 0.3 % (0.0-2.0); Hematocrit 23.9 % (39.0-51.0); Hemoglobin 8.2 gm/dL (13.0-17.0); Lymph # (Auto) 0.3 th/mm3 (1.0-4.8); Lymph % (Auto) 17.6 % (9.0-44.0); Mean Corpuscular HGB Conc 34.3 % (32.0-36.0); Mean Corpuscular Hemoglobin 32.9 pg (27.0-34.0); Mean Platelet Volume 6.9 fL (7.0-11.0); Mono # (Auto) 0.2 th/mm3 (0.0-0.9); Neut # (Auto) 1.3 th/mm3 (1.8-7.7); Neut % (Auto) 72.1 % (16.0-70.0); Platelet Count 30 th/mm3 (150-450); Red Blood Count 2.49 mil/mm3 (4.50-5.90); White Blood Count 1.8 th/mm3 (4.0-11.0)
[2017-10-30] MEDS: Pantoprazole Inj 40 MG Vial IV.PUSH SCH ×2 (04:42→17:35)
[2017-10-30 04:48] LABS: Alanine Aminotransferase 12 U/L (12-78); Albumin 2.5 g/dL (3.4-5.0); Anion Gap 13 meq/L (5-15); Aspartate Aminotransferase 22 U/L (15-37); Blood Urea Nitrogen 18 mg/dL (7-18); Calcium 8.6 mg/dL (8.5-10.1); Carbon Dioxide 21.2 meq/L (21.0-32.0); Chloride 105 meq/L (98-107); Glomerular Filtration Rate Greater Than 89 mL/min (>89); Glucose,Random 102 mg/dL (74-106); Potassium 3.9 meq/L (3.5-5.1); Sodium 139 meq/L (136-145)
[2017-10-30 04:51] LABS: Alkaline Phosphatase 87 U/L (45-117); Creatine Kinase 130 U/L (39-308); Total Protein 5.6 g/dL (6.4-8.2)
[2017-10-30 05:01] LABS: Troponin I 1.93 ng/mL (0.02-0.05)
[2017-10-30 07:40] LABS: Eosinophils 1 % (0-4); Lymphocytes 18 % (9-44); Metamyelocytes 1 % (0-1); Monocytes 3 % (0-8); Tallied Nucleated RBC 1 (0-0)
[2017-10-30 07:41] LABS: Platelet Morphology Normal (Normal)
--- NOTE | 2017-10-30 08:19 | ECG ---
Date Performed: 10/29/2017 Time Performed: 21:11:24 PTAGE: 72 years EKG: Sinus rhythm BORDERLINE ECG PREVIOUS TRACING : 10/29/2017 12.24 DOCTOR: Rosenda Solano Interpretating Date/Time 10/30/2017 08:17:19
--- NOTE | 2017-10-30 08:24 | P.PNONC ---
Subjective Interval history: Afebrile Patient reports his shortness of breath about the same since admission His next breathing treatment is due at 8 AM Denies chest pain Objective Vital Signs/Intake & Output: Vital Signs 10/29/17 12:44 10/29/17 15:33 10/29/17 15:47 Temperature 99.0 F 99.6 F Pulse Rate 100 H 103 H 111 H Respiratory Rate 26 H 16 22 Blood Pressure 170/85 H 120/59 L Pulse Oximetry 100 100 10/29/17 17:01 10/29/17 17:25 10/29/17 18:47 Temperature 99.1 F 99.1 F 99.1 F Pulse Rate 106 H 107 H 114 H Respiratory Rate 16 18 16 Blood Pressure 160/87 H 146/70 H 184/78 H Pulse Oximetry 98 100 100 10/29/17 20:00 10/29/17 21:50 10/29/17 21:52 Temperature 97.7 F Pulse Rate 107 H 114 H Respiratory Rate 20 16 Blood Pressure 136/87 Pulse Oximetry 99 97 10/29/17 23:36 10/29/17 23:51 10/30/17 00:23 Temperature 97.8 F 97.3 F L Pulse Rate 99 H 97 H 100 H Respiratory Rate 16 17 24 Blood Pressure 109/54 L 105/53 L Pulse Oximetry 100 100 10/30/17 03:31 10/30/17 04:11 Temperature 97.3 F L Pulse Rate 103 H 92 H Respiratory Rate 17 18 Blood Pressure 118/59 L Pulse Oximetry Intake & Output 10/29/17 10/30/17 10/30/17 18:59 06:59 18:59 Intake Total 0 / 0 640 / 640 1850 / 1850 Output Total 450 / 450 Balance 0 / 0 190 / 190 1850 / 1850 Weight 160 lb Intake: IV 1850 / 1850 NS Inj 250 ML @ 15 mls/hr IV. 250 / 250 SIG ONCE HELEN Rx#:[id number] Oral 240 / 240 Intake (Blood Product) Amt 0 / 0 400 / 400 Plt Pheresis A Leukoreduced 0 / 0 Unit [id number] Rbc As-3 Leukoreduced Unit 400 / 400 [id number] Rbc As-3 Leukoreduced Unit 0 / 0 0 / 0 [id number] Output: Urine 450 / 450 Other: Date of Last Bowel Movement 10/29/17 Result Diagrams: 10/30/17 04:10 10/30/17 04:10 Laboratory Results: Laboratory Results - last 24 hr 10/29/17 10/29/17 10/29/17 12:32 12:32 12:32 WBC 1.9 L RBC 1.70 L Hgb 5.9 L* Hct 17.2 L* MCV 100.9 H MCH 34.4 H MCHC 34.1 RDW 24.9 H Plt Count 15 L* MPV 8.0 Prelim Diff (Auto) Slide review pending Neut % (Auto) 76.3 H Lymph % (Auto) 12.3 [place] % (Auto) 11.2 H Eos % (Auto) 0.1 Baso % (Auto) 0.1 Neut # (Auto) 1.5 L Lymph # (Auto) 0.2 L [place] # (Auto) 0.2 Eos # (Auto) 0.0 Baso # (Auto) 0.0 WBC Differential Manual diff final Seg Neuts % (Manual) 68 Band Neuts % (Manual) 14 H Lymphocytes % (Manual) 11 Monocytes % (Manual) 7 Eosinophils % (Manual) Basophils % (Manual) Metamyelocytes % (Man) Abs Neuts (Manual) 1.6 L Nucleated RBCs/100 WBC Differential Comment . Toxic Granulation 2+ H Platelet Estimate Rare L Platelet Morphology Normal Sodium 139 Potassium 4.6 Chloride 104 Carbon Dioxide 22.8 Anion Gap 12 BUN 27 H Creatinine 0.79 Estimated GFR Greater than 89 Random Glucose 114 H Lactic Acid Calcium 9.0 Total Bilirubin 0.8 AST 18 ALT 13 Alkaline Phosphatase 105 Total Creatine Kinase Troponin I 0.52 H B-Natriuretic Peptide 51 Total Protein 6.3 L Albumin 2.8 L Urine Color Urine Clarity Urine pH Ur Specific [place] Urine Protein Urine Glucose (UA) Urine Ketones Urine Occult Blood Urine Nitrate Urine Bilirubin Urine Urobilinogen Ur Leukocyte Esterase Urine Mucus Micro UA Comment Urine Culture Comments Serum Alcohol Less than 3 Blood Type Antibody Screen Ab Screen Tube Method Antibody Identification Crossmatch MTS Gel Crossmatch Bld Prod Order Comment 10/29/17 10/29/17 10/29/17 13:10 13:38 13:38 WBC RBC Hgb Hct MCV MCH MCHC RDW Plt Count MPV Prelim Diff (Auto) Neut % (Auto) Lymph % (Auto) [place] % (Auto) Eos % (Auto) Baso % (Auto) Neut # (Auto) Lymph # (Auto) [place] # (Auto) Eos # (Auto) Baso # (Auto) WBC Differential Seg Neuts % (Manual) Band Neuts % (Manual) Lymphocytes % (Manual) Monocytes % (Manual) Eosinophils % (Manual) Basophils % (Manual) Metamyelocytes % (Man) Abs Neuts (Manual) Nucleated RBCs/100 WBC Differential Comment Toxic Granulation Platelet Estimate Platelet Morphology Sodium Potassium Chloride Carbon Dioxide Anion Gap BUN Creatinine Estimated GFR Random Glucose Lactic Acid 1.5 Calcium Total Bilirubin AST ALT Alkaline Phosphatase Total Creatine Kinase Troponin I B-Natriuretic Peptide Total Protein Albumin Urine Color Urine Clarity Urine pH Ur Specific [place] Urine Protein Urine Glucose (UA) Urine Ketones Urine Occult Blood Urine Nitrate Urine Bilirubin Urine Urobilinogen Ur Leukocyte Esterase Urine Mucus Micro UA Comment Urine Culture Comments Serum Alcohol Blood Type A Negative Antibody Screen Positive H Ab Screen Tube Method Negative Antibody Identification Non-Specific Agglutinin Crossmatch See Detail MTS Gel Crossmatch See Detail Bld Prod Order Comment 10/29/17 10/29/17 10/30/17 15:00 22:37 04:10 WBC RBC Hgb Hct MCV MCH MCHC RDW Plt Count MPV Prelim Diff (Auto) Neut % (Auto) Lymph % (Auto) [place] % (Auto) Eos % (Auto) Baso % (Auto) Neut # (Auto) Lymph # (Auto) [place] # (Auto) Eos # (Auto) Baso # (Auto) WBC Differential Seg Neuts % (Manual) Band Neuts % (Manual) Lymphocytes % (Manual) Monocytes % (Manual) Eosinophils % (Manual) Basophils % (Manual) Metamyelocytes % (Man) Abs Neuts (Manual) Nucleated RBCs/100 WBC Differential Comment Toxic Granulation Platelet Estimate Platelet Morphology Sodium 139 Potassium 3.9 Chloride 105 Carbon Dioxide 21.2 Anion Gap 13 BUN 18 Creatinine 0.60 Estimated GFR Greater than 89 Random Glucose 102 Lactic Acid Calcium 8.6 Total Bilirubin 1.2 H AST 22 ALT 12 Alkaline Phosphatase 87 Total Creatine Kinase 110 130 Troponin I 1.12 H* 1.93 H* B-Natriuretic Peptide Total Protein 5.6 L D Albumin 2.5 L Urine Color Yellow Urine Clarity Clear Urine pH 5.0 Ur Specific [place] 1.016 Urine Protein Negative Urine Glucose (UA) Negative Urine Ketones 20 Urine Occult Blood Negative Urine Nitrate Negative Urine Bilirubin Negative Urine Urobilinogen Less than 2 Ur Leukocyte Esterase Negative Urine Mucus Few H Micro UA Comment Culture not ind Urine Culture Comments Culture not ind Serum Alcohol Blood Type Antibody Screen Ab Screen Tube Method Antibody Identification Crossmatch MTS Gel Crossmatch Bld Prod Order Comment 10/30/17 04:10 WBC 1.8 L RBC 2.49 L Hgb 8.2 L D Hct 23.9 L MCV 96.0 D MCH 32.9 MCHC 34.3 RDW 23.0 H Plt Count 30 L D MPV 6.9 L Prelim Diff (Auto) Slide review pending Neut % (Auto) 72.1 H Lymph % (Auto) 17.6 [place] % (Auto) 9.0 H Eos % (Auto) 1.0 Baso % (Auto) 0.3 Neut # (Auto) 1.3 L Lymph # (Auto) 0.3 L [place] # (Auto) 0.2 Eos # (Auto) 0.0 Baso # (Auto) 0.0 WBC Differential Manual diff final Seg Neuts % (Manual) 70 Band Neuts % (Manual) 6 Lymphocytes % (Manual) 18 Monocytes % (Manual) 3 Eosinophils % (Manual) 1 Basophils % (Manual) 1 Metamyelocytes % (Man) 1 Abs Neuts (Manual) 1.4 L Nucleated RBCs/100 WBC 1 H Differential Comment . Toxic Granulation Platelet Estimate Low L Platelet Morphology Normal Sodium Potassium Chloride Carbon Dioxide Anion Gap BUN Creatinine Estimated GFR Random Glucose Lactic Acid Calcium Total Bilirubin AST ALT Alkaline Phosphatase Total Creatine Kinase Troponin I B-Natriuretic Peptide Total Protein Albumin Urine Color Urine Clarity Urine pH Ur Specific [place] Urine Protein Urine Glucose (UA) Urine Ketones Urine Occult Blood Urine Nitrate Urine Bilirubin Urine Urobilinogen Ur Leukocyte Esterase Urine Mucus Micro UA Comment Urine Culture Comments Serum Alcohol Blood Type Antibody Screen Ab Screen Tube Method Antibody Identification Crossmatch MTS Gel Crossmatch Bld Prod Order Comment Imaging Studies: Impressions Chest CTA 10/29/17 12:11 CONCLUSION: 1. No evidence of pulmonary embolism. 2. New subsegmental airspace disease in the right lower lobe characteristic of pneumonitis. 3. Decreasing size of left axillary mass. 4. No other significant change. Chest X-Ray 10/29/17 12:11 CONCLUSION: Negative for acute process. Medications: Active Medications Generic Name Dose Route Start Last Admin Trade Name Freq PRN Reason Stop Dose Admin Albuterol 1 ampul 10/29/17 16:00 10/30/17 04:09 Duoneb Neb (Helen) NEB 1 ampul Q4HR NEB HELEN Administration Chlordiazepoxide 25 mg 10/29/17 21:00 10/29/17 21:07 Librium PO 25 mg BID HELEN Administration Sodium Chloride 1,000 mls @ 70 mls/hr 10/29/17 16:00 10/29/17 18:59 Ns Inj IV.CONT 70 mls/hr .[id number] HELEN Administration Lisinopril 10 mg 10/29/17 21:00 10/29/17 21:06 Prinivil PO 10 mg BID HELEN Administration Metoprolol Tartrate 25 mg 10/29/17 21:00 10/29/17 21:06 Lopressor PO 25 mg BID HELEN Administration Pantoprazole Sodium 40 mg 10/29/17 16:00 10/30/17 04:42 Protonix Inj IV.PUSH 40 mg Q12H HELEN Administration Senna/Docusate Sodium 1 tab 10/29/17 21:00 10/29/17 21:06 Merced-Colace PO Not Given BID HELEN Objective Remarks: GENERAL: Disheveled older male resting in bed eating breakfast. He appears mildly short of breath when speaking SKIN: Warm and dry. Excoriated skin to left axilla HEAD: Normocephalic. EYES: No scleral icterus. No injection or drainage. NECK: Supple, trachea midline. No JVD or lymphadenopathy. CARDIOVASCULAR: Regular rate and rhythm. Tachycardic. RESPIRATORY: Coarse lung sounds anteriorly. On 3 L nasal cannula. GASTROINTESTINAL: Abdomen soft, non-tender, nondistended. EXTREMITIES: No cyanosis, or edema. MUSCULOSKELETAL: Generalized weakness NEUROLOGICAL: No obvious focal deficit. Awake, alert, and oriented x3. 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 He was originally diagnosed in July 2017. Primary either from lung versus skin suspected. He has a very large supraclavicular mass on the left arm. He is currently being treated with carboplatin and Taxol on an outpatient basis with his last treatment being approximately 2 weeks ago. Unfortunately he has been coping with his diagnosis via alcohol. He reports drinking a quart of rum per day. He also mentions he has had frequent loose dark stools. He was noted to have severe anemia on admission with a hemoglobin of 5.9. 1. Pancytopenia due to chemotherapy effects. ANC 1300 today. Would recommend giving Neupogen if his counts continue to decrease. 2. Patient reports melanotic stools. Will obtain stool for occult blood. 3. Patient has elevated troponins; cardiology consulted. 4. Appreciate wound care consult; pt with excoriated skin under left axilla from radiation. For now will order silvadene. - Attending Statement The exam, history, and the medical decision-making described in the above note were completed with the assistance of the mid-level provider. I reviewed and agree with the findings presented. I attest that I had a [id number] encounter with the patient on the same day, and personally performed and documented my assessment and findings in the medical record. Reports no bowel movement today. He feels better. Cytopenias improving with G- CSF support and transfusion. Platelets are recovering. Appears contrite about stopping drinking. She admits to having binge drinking episode when his mother in 2014. Reluctant at first but agreed to see psychiatry to assist in management of his depression. He attributes his depression to his diagnosis of cancer. We discussed that it interferes with his overall treatment of his cancer with setbacks such as this admission from his drinking. We will consult psychiatry. Continue current support.
--- NOTE | 2017-10-30 08:28 | ECG ---
Date Performed: 10/29/2017 Time Performed: 12:24:07 PTAGE: 72 years EKG: Atrial fibrillation Diffuse ST changes Abnormal EKG PREVIOUS TRACING : 01/10/2017 12.58 DOCTOR: Rosenda Solano Interpretating Date/Time 10/30/2017 08:23:35
--- NOTE | 2017-10-30 08:28 | P.CONCA ---
History of Present Illness Consult date: 10/30/17 Requesting Physician: Ryley Rodgers Reason for Consult: NSTEMI Primary Care Provider: Ryley Rodgers MD Family Provider: Ryley Rodgers MD Chief Complaint: SOB History of Present Illness: Patient is a pleasant 72 y/o gentleman with 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 Lindsey, HTN, HLD, active tobacco use and no established CAD. Pt is also an alcoholic and has been drinking heavily the last 12 days, a quart of rum per day, due to some depression over his cancer diagnosis and the rigors of treatment. His last alcoholic beverage was day prior to admission and feels shaky. He presented to the ED at [facility] on 10/29/17 with complaints of SOB and pt felt like he was starting to go into alcohol withdrawals. He states that has been having SOB for the last few weeks with a cough with some clear colored phlegm. Denies any fevers or chills or chest pain. No PND, orthopnea but is with exertional dyspnea and exercise capacity limitation. Pt is normally on 2-3L of supplemental O2 at home. He states that his last radiation therapy was about 1 week ago. Pt has been having loose black stools 1- 2 times daily,, last was yesterday, and has been ongoing for the past week. He has not been taking any prescription medications for the last 12 days while he has been drinking heavily. His labs in the ED noted WBC count 1.9, Hgb 5.9/Hct 17.2, Platelet count 15, 000. His troponin was slightly elevated at 0.52. Pulmonary CTA with no evidence of PE, new subsegmental airspace disease in the right lower lobe characteristic of pneumonitis, decreasing size of left axillary mass, otherwise no other significant change. He received 2 units of PRBCs and PLTs with resultant Hgb 8.2 and PLT 30k. Pt denies any wheezing, chest pain, abdominal pain, fevers/chills, or palpitations. He has a rash in the left axilla which he reports is from radiation therapy and has reported some weeping from the wound. He states that the swelling in the LUE has been much better since the radiation therapy was started. Pt received Vancomycin and Cefepime in the ED and blood cultures were drawn prior to that. Cardiology was consulted as he was noted to have elevation in troponin from 0.52 , 1.12, 1.93. ECG with no ischemic changes. Review of Systems All other systems reviewed negative except as stated in HPI [facility] - History History Provided By: Patient, Medical Record - Medical History Medical History: Medical History (Last Reviewed 10/30/17 @ 08:15 by Osvaldo Silverman DO) COPD (chronic obstructive pulmonary disease) Hypertension - Surgical History Surgical History: Surgical History (Last Reviewed 10/30/17 @ 08:15 by Osvaldo Silverman DO) History of hip replacement - Tobacco History Second Hand Smoke Exposure: No Tobacco Use In Past 30 Days: No Smoking Status: Current every day smoker Tobacco Type: Cigarettes - Alcohol History How Often Do You Have a Drink Containing Alcohol: 4 or more times a week - Substance Use History Substance History: No History of Abuse - Travel History Recent Travel in the [place] Within the Last 8 Weeks: No Recent Travel Out of the Country Within the Last 8 Weeks: No - Immunization History Tetanus Immunization: >5 Years Hx Influenza Vaccine This Season: No Medications and Allergies Active Medications: Active Medications Acetaminophen (Tylenol) 650 mg PO Q4H PRN PRN Reason: Temp > 100.4 Albuterol (Duoneb Neb ([facility])) 1 ampul NEB Q4HR NEB REPLACED BY [facility] Last Admin: 10/30/17 04:09 Dose: 1 ampul Atorvastatin Calcium (Lipitor) 20 mg PO DAILY REPLACED BY [facility] Chlordiazepoxide (Librium) 25 mg PO BID REPLACED BY [facility] Last Admin: 10/29/17 21:07 Dose: 25 mg Flumazenil (Romazecon Inj) 0.2 mg IV.PUSH Q1M PRN PRN Reason: OVERSEDATION Fluticasone/Vilanterol (Breo Ellipta 100/25 Mcg Inh) 1 puff INH DAILY REPLACED BY [facility] Haloperidol Lactate (Haldol Inj) 1 mg IV.PUSH Q15M PRN PRN Reason: for severe agitation Vancomycin HCl 1,000 mg/ (Sodium Chloride) 250 mls @ 250 mls/hr IV.SIG [employer] REPLACED BY [facility] Stop: 11/01/17 14:59 Sodium Chloride (Ns Inj) 1,000 mls @ 70 mls/hr IV.CONT .[id number] REPLACED BY [facility] Last Admin: 10/29/17 18:59 Dose: 70 mls/hr Lisinopril (Prinivil) 10 mg PO BID REPLACED BY [facility] Last Admin: 10/29/17 21:06 Dose: 10 mg Lorazepam (Ativan) 1 mg PO Q4H PRN PRN Reason: for CIWA 8-10 Lorazepam (Ativan Inj) 2 mg IV.PUSH Q2H PRN PRN Reason: for CIWA 11-14 Lorazepam (Ativan Inj) 2 mg IV.PUSH Q1H PRN PRN Reason: for CIWA 15-20 Lorazepam (Ativan Inj) 2 mg IV.PUSH Q15M PRN PRN Reason: for CIWA > 20 Lorazepam (Ativan Inj) 1 mg IV.PUSH Q4H PRN PRN Reason: for CIWA 8-10 Lorazepam (Ativan) 2 mg PO Q2H PRN PRN Reason: for CIWA 11-14 Metoprolol Tartrate (Lopressor) 25 mg PO BID REPLACED BY [facility] Last Admin: 10/29/17 21:06 Dose: 25 mg Ondansetron HCl (Zofran Odt) 4 mg PO Q6H PRN PRN Reason: NAUSEA OR VOMITING Pantoprazole Sodium (Protonix Inj) 40 mg IV.PUSH Q12H REPLACED BY [facility] Last Admin: 10/30/17 04:42 Dose: 40 mg Senna/Docusate Sodium (Merced-Colace) 1 tab PO BID REPLACED BY [facility] Last Admin: 10/29/17 21:06 Dose: Not Given Allergies Allergy/AdvReac Type Severity Reaction Status Date / Time No Known Allergies Allergy Unknown Uncoded 08/13/17 10:45 Home Medications Medication Instructions Recorded Confirmed Type albuterol sulfate [Ventolin HFA] 2 puff INHALATION Q4-6H PRN 10/29/17 10/29/17 History atorvastatin 20 mg PO DAILY 10/29/17 10/29/17 History fluticasone-vilanterol [Breo 1 inh INHALATION DAILY 10/29/17 10/29/17 History Ellipta] ipratropium-albuterol 3 ml INHALATION QID 10/29/17 10/29/17 History lisinopril 10 mg PO BID 10/29/17 10/29/17 History lorazepam 1 mg PO BID 10/29/17 10/29/17 History metoprolol tartrate 25 mg PO BID 10/29/17 10/29/17 History pantoprazole 40 mg PO DAILY 10/29/17 10/29/17 History Exam Vital signs: Vital Signs 10/29/17 12:44 10/29/17 15:33 10/29/17 15:47 Temperature 99.0 F 99.6 F Pulse Rate 100 H 103 H 111 H Respiratory Rate 26 H 16 22 Blood Pressure 170/85 H 120/59 L Pulse Oximetry 100 100 10/29/17 17:01 10/29/17 17:25 10/29/17 18:47 Temperature 99.1 F 99.1 F 99.1 F Pulse Rate 106 H 107 H 114 H Respiratory Rate 16 18 16 Blood Pressure 160/87 H 146/70 H 184/78 H Pulse Oximetry 98 100 100 10/29/17 20:00 10/29/17 21:50 10/29/17 21:52 Temperature 97.7 F Pulse Rate 107 H 114 H Respiratory Rate 20 16 Blood Pressure 136/87 Pulse Oximetry 99 97 10/29/17 23:36 10/29/17 23:51 10/30/17 00:23 Temperature 97.8 F 97.3 F L Pulse Rate 99 H 97 H 100 H Respiratory Rate 16 17 24 Blood Pressure 109/54 L 105/53 L Pulse Oximetry 100 100 10/30/17 03:31 10/30/17 04:11 Temperature 97.3 F L Pulse Rate 103 H 92 H Respiratory Rate 17 18 Blood Pressure 118/59 L Pulse Oximetry Intake & Output 10/29/17 10/30/17 10/30/17 18:59 06:59 18:59 Intake Total 0 / 0 640 / 640 1849 / 0 Output Total 450 / 450 Balance 0 / 0 190 / 190 0 / 1850 Weight 72.575 kg Intake: IV 1849 NS Inj 250 ML @ 15 mls/hr IV. 250 / 250 SIG ONCE KATIE Rx#:[id number] Oral 240 / 240 Intake (Blood Product) Amt 0 / 0 400 / 400 Plt Pheresis A Leukoreduced 0 / 0 Unit [id number] Rbc As-3 Leukoreduced Unit 400 / 400 [id number] Rbc As-3 Leukoreduced Unit 0 / 0 0 / 0 [id number] Output: Urine 450 / 450 Other: Date of Last Bowel Movement 10/29/17 Narrative: GENERAL: comfortable appearing, speaking full sentences SKIN: Warm and dry. HEAD: Atraumatic. Normocephalic. EYES: Pupils equal and round. No scleral icterus. No injection or drainage. NECK: Trachea midline. No JVD. CARDIOVASCULAR: Regular rate and rhythm. No murmur, rubs or gallops RESPIRATORY: No accessory muscle use. Clear to auscultation. Breath sounds equal bilaterally. GASTROINTESTINAL: Abdomen soft, non-tender, nondistended. MUSCULOSKELETAL: Extremities without clubbing, cyanosis, or edema. No obvious deformities. NEUROLOGICAL: Awake and alert. PSYCHIATRIC: Appropriate mood and affect; insight and judgment normal. Results 10/30/17 04:10 10/30/17 04:10 Cardiac Enzymes 10/29/17 10/29/17 10/29/17 Range/Units 12:32 12:32 22:37 AST 18 (15-37) U/L Troponin I 0.52 H 1.12 H* (0.02-0.05) ng/mL B-Natriuretic Peptide 51 (0-100) pg/mL 10/30/17 Range/Units 04:10 AST 22 (15-37) U/L Troponin I 1.93 H* (0.02-0.05) ng/mL B-Natriuretic Peptide (0-100) pg/mL Coagulation 10/29/17 Range/Units 12:32 B-Natriuretic Peptide 51 (0-100) pg/mL CBC 10/29/17 10/30/17 Range/Units 12:32 04:10 WBC 1.9 L 1.8 L (4.0-11.0) th/mm3 RBC 1.70 L 2.49 L (4.50-5.90) mil/mm3 Hgb 5.9 L* 8.2 L D (13.0-17.0) gm/dL Hct 17.2 L* 23.9 L (39.0-51.0) % Plt Count 15 L* 30 L D (150-450) th/mm3 Neut # (Auto) 1.5 L 1.3 L (1.8-7.7) th/mm3 Lymph # (Auto) 0.2 L 0.3 L (1.0-4.8) th/mm3 [place] # (Auto) 0.2 0.2 (0.0-0.9) th/mm3 Eos # (Auto) 0.0 0.0 (0.0-0.4) th/mm3 Baso # (Auto) 0.0 0.0 (0.0-0.2) th/mm3 Comprehensive Metabolic Panel 10/29/17 10/30/17 Range/Units 12:32 04:10 Sodium 139 139 (136-145) meq/L Potassium 4.6 3.9 (3.5-5.1) meq/L Chloride 104 105 (98-107) meq/L Carbon Dioxide 22.8 21.2 (21.0-32.0) meq/L BUN 27 H 18 (7-18) mg/dL Creatinine 0.79 0.60 (0.60-1.30) mg/dL Calcium 9.0 8.6 (8.5-10.1) mg/dL AST 18 22 (15-37) U/L ALT 13 12 (12-78) U/L Alkaline Phosphatase 105 87 (45-117) U/L Total Protein 6.3 L 5.6 L D (6.4-8.2) g/dL Albumin 2.8 L 2.5 L (3.4-5.0) g/dL Intake and Output 10/29/17 10/30/17 10/30/17 22:59 06:59 14:59 Intake Total 0 / 0 640 / 640 1850 / 1850 Output Total 450 / 450 Balance 0 / 0 190 / 190 185 / 1850 Intake: IV 0 / 1850 NS Inj 250 ML @ 15 mls/hr IV. 250 / 250 SIG ONCE KATIE Rx#:[id number] Oral 240 / 240 Intake (Blood Product) Amt 0 / 0 400 / 400 Plt Pheresis A Leukoreduced 0 / 0 Unit [id number] Rbc As-3 Leukoreduced Unit 400 / 400 [id number] Rbc As-3 Leukoreduced Unit 0 / 0 [id number] Output: Urine 450 / 450 Other: Date of Last Bowel Movement 10/29/17 Assessment and Plan - Plan ASSESSMENT: NSTEMI Pancytopenia GI bleed, suspected upper with melanotic stools Metastatic Squamous Cell Carcinoma with left axillary/anterior chest wall mass s /p chemi and XRT Alcohol abuse with active alcohol withdrawal HTN HLD RECOMMENDATIONS: Patient is not a good candidate for invasive cardiac catheterization at this time due to severe anemia and thrombocytopenia with suspected active GI bleed. He has no anginal symptoms. His ECG is non-ischemic. It is quite possible that his troponin elevation is due to demand ischemia in setting of severe anemia and stressors above. Will continue with medical management at this time. He currently is not a candidate for either antiplatelet or anticoagulation therapy. -Transfuse PRBC for Hgb > 10 -Agree with metoprolol, lisinopril and atorvastatin -echocardiogram to evaluate LV systolic function -GI consult to evaluate for GIB -rest per primary team
--- NOTE | 2017-10-30 09:48 | P.PNIM ---
Subjective Interval history: Pt just had a breathing treatment and feels his breathing is at baseline while lying in bed but if he gets up to ambulate he feels very SOB Pt is on 3L of supplemental O2 via NC He reports a dark BM last night Denies any abd pain, chest pain, palpitations, dizziness or weakness Physical Exam Vital signs: Vital Signs 10/29/17 12:44 10/29/17 15:33 10/29/17 15:47 Temperature 99.0 F 99.6 F Pulse Rate 100 H 103 H 111 H Respiratory Rate 26 H 16 22 Blood Pressure 170/85 H 120/59 L Pulse Oximetry 100 100 10/29/17 17:01 10/29/17 17:25 10/29/17 18:47 Temperature 99.1 F 99.1 F 99.1 F Pulse Rate 106 H 107 H 114 H Respiratory Rate 16 18 16 Blood Pressure 160/87 H 146/70 H 184/78 H Pulse Oximetry 98 100 100 10/29/17 20:00 10/29/17 21:50 10/29/17 21:52 Temperature 97.7 F Pulse Rate 107 H 114 H Respiratory Rate 20 16 Blood Pressure 136/87 Pulse Oximetry 99 97 10/29/17 23:36 10/29/17 23:51 10/30/17 00:23 Temperature 97.8 F 97.3 F L Pulse Rate 99 H 97 H 100 H Respiratory Rate 16 17 24 Blood Pressure 109/54 L 105/53 L Pulse Oximetry 100 100 10/30/17 03:31 10/30/17 04:11 10/30/17 08:00 Temperature 97.3 F L Pulse Rate 103 H 92 H 99 H Respiratory Rate 17 18 18 Blood Pressure 118/59 L 129/59 L Pulse Oximetry 97 10/30/17 09:04 Temperature Pulse Rate 103 H Respiratory Rate 14 Blood Pressure Pulse Oximetry 99 Intake & Output 10/29/17 10/30/17 10/30/17 18:59 06:59 18:59 Intake Total 0 / 0 640 / 640 1849 / 0 Output Total 450 / 450 Balance 0 / 0 190 / 190 1849 / 1850 Weight 72.575 kg Intake: IV 1849 NS Inj 250 ML @ 15 mls/hr IV. 250 / 250 SIG ONCE KATIE Rx#:[id number] Oral 240 / 240 Intake (Blood Product) Amt 0 / 0 400 / 400 Plt Pheresis A Leukoreduced 0 / 0 Unit [id number] Rbc As-3 Leukoreduced Unit 400 / 400 [id number] Rbc As-3 Leukoreduced Unit 0 / 0 0 / 0 [id number] Output: Urine 450 / 450 Other: Date of Last Bowel Movement 10/29/17 Narrative: GENERAL: NAD, AAOx3 SKIN: Left axilla skin is raw, beefy with denuded skin and LUE/chest shoulder with radiation skin changes CARDIO: Regular, tachy RESP: No accessory muscle use. Clear to auscultation. Breath sounds equal bilaterally. ABD: +BS, soft, non-tender, nondistended. EXT: No LE edema edema. No obvious deformities. Results - Labs CBC & Chem 7: 10/30/17 04:10 10/30/17 04:10 Laboratory Results - last 24 hr 10/29/17 10/29/17 10/29/17 12:32 12:32 12:32 WBC 1.9 L RBC 1.70 L Hgb 5.9 L* Hct 17.2 L* MCV 100.9 H MCH 34.4 H MCHC 34.1 RDW 24.9 H Plt Count 15 L* MPV 8.0 Prelim Diff (Auto) Slide review pending Neut % (Auto) 76.3 H Lymph % (Auto) 12.3 [place] % (Auto) 11.2 H Eos % (Auto) 0.1 Baso % (Auto) 0.1 Neut # (Auto) 1.5 L Lymph # (Auto) 0.2 L [place] # (Auto) 0.2 Eos # (Auto) 0.0 Baso # (Auto) 0.0 WBC Differential Manual diff final Seg Neuts % (Manual) 68 Band Neuts % (Manual) 14 H Lymphocytes % (Manual) 11 Monocytes % (Manual) 7 Eosinophils % (Manual) Basophils % (Manual) Metamyelocytes % (Man) Abs Neuts (Manual) 1.6 L Nucleated RBCs/100 WBC Differential Comment . Toxic Granulation 2+ H Platelet Estimate Rare L Platelet Morphology Normal Sodium 139 Potassium 4.6 Chloride 104 Carbon Dioxide 22.8 Anion Gap 12 BUN 27 H Creatinine 0.79 Estimated GFR Greater than 89 Random Glucose 114 H Lactic Acid Calcium 9.0 Total Bilirubin 0.8 AST 18 ALT 13 Alkaline Phosphatase 105 Total Creatine Kinase Troponin I 0.52 H B-Natriuretic Peptide 51 Total Protein 6.3 L Albumin 2.8 L Urine Color Urine Clarity Urine pH Ur Specific [place] Urine Protein Urine Glucose (UA) Urine Ketones Urine Occult Blood Urine Nitrate Urine Bilirubin Urine Urobilinogen Ur Leukocyte Esterase Urine Mucus Micro UA Comment Urine Culture Comments Serum Alcohol Less than 3 Blood Type Antibody Screen Ab Screen Tube Method Antibody Identification Crossmatch MTS Gel Crossmatch Bld Prod Order Comment 10/29/17 10/29/17 10/29/17 13:10 13:38 13:38 WBC RBC Hgb Hct MCV MCH MCHC RDW Plt Count MPV Prelim Diff (Auto) Neut % (Auto) Lymph % (Auto) [place] % (Auto) Eos % (Auto) Baso % (Auto) Neut # (Auto) Lymph # (Auto) [place] # (Auto) Eos # (Auto) Baso # (Auto) WBC Differential Seg Neuts % (Manual) Band Neuts % (Manual) Lymphocytes % (Manual) Monocytes % (Manual) Eosinophils % (Manual) Basophils % (Manual) Metamyelocytes % (Man) Abs Neuts (Manual) Nucleated RBCs/100 WBC Differential Comment Toxic Granulation Platelet Estimate Platelet Morphology Sodium Potassium Chloride Carbon Dioxide Anion Gap BUN Creatinine Estimated GFR Random Glucose Lactic Acid 1.5 Calcium Total Bilirubin AST ALT Alkaline Phosphatase Total Creatine Kinase Troponin I B-Natriuretic Peptide Total Protein Albumin Urine Color Urine Clarity Urine pH Ur Specific [place] Urine Protein Urine Glucose (UA) Urine Ketones Urine Occult Blood Urine Nitrate Urine Bilirubin Urine Urobilinogen Ur Leukocyte Esterase Urine Mucus Micro UA Comment Urine Culture Comments Serum Alcohol Blood Type A Negative Antibody Screen Positive H Ab Screen Tube Method Negative Antibody Identification Non-Specific Agglutinin Crossmatch See Detail MTS Gel Crossmatch See Detail Bld Prod Order Comment 10/29/17 10/29/17 10/30/17 15:00 22:37 04:10 WBC RBC Hgb Hct MCV MCH MCHC RDW Plt Count MPV Prelim Diff (Auto) Neut % (Auto) Lymph % (Auto) [place] % (Auto) Eos % (Auto) Baso % (Auto) Neut # (Auto) Lymph # (Auto) [place] # (Auto) Eos # (Auto) Baso # (Auto) WBC Differential Seg Neuts % (Manual) Band Neuts % (Manual) Lymphocytes % (Manual) Monocytes % (Manual) Eosinophils % (Manual) Basophils % (Manual) Metamyelocytes % (Man) Abs Neuts (Manual) Nucleated RBCs/100 WBC Differential Comment Toxic Granulation Platelet Estimate Platelet Morphology Sodium 139 Potassium 3.9 Chloride 105 Carbon Dioxide 21.2 Anion Gap 13 BUN 18 Creatinine 0.60 Estimated GFR Greater than 89 Random Glucose 102 Lactic Acid Calcium 8.6 Total Bilirubin 1.2 H AST 22 ALT 12 Alkaline Phosphatase 87 Total Creatine Kinase 110 130 Troponin I 1.12 H* 1.93 H* B-Natriuretic Peptide Total Protein 5.6 L D Albumin 2.5 L Urine Color Yellow Urine Clarity Clear Urine pH 5.0 Ur Specific [place] 1.016 Urine Protein Negative Urine Glucose (UA) Negative Urine Ketones 20 Urine Occult Blood Negative Urine Nitrate Negative Urine Bilirubin Negative Urine Urobilinogen Less than 2 Ur Leukocyte Esterase Negative Urine Mucus Few H Micro UA Comment Culture not ind Urine Culture Comments Culture not ind Serum Alcohol Blood Type Antibody Screen Ab Screen Tube Method Antibody Identification Crossmatch MTS Gel Crossmatch Bld Prod Order Comment 10/30/17 04:10 WBC 1.8 L RBC 2.49 L Hgb 8.2 L D Hct 23.9 L MCV 96.0 D MCH 32.9 MCHC 34.3 RDW 23.0 H Plt Count 30 L D MPV 6.9 L Prelim Diff (Auto) Slide review pending Neut % (Auto) 72.1 H Lymph % (Auto) 17.6 [place] % (Auto) 9.0 H Eos % (Auto) 1.0 Baso % (Auto) 0.3 Neut # (Auto) 1.3 L Lymph # (Auto) 0.3 L [place] # (Auto) 0.2 Eos # (Auto) 0.0 Baso # (Auto) 0.0 WBC Differential Manual diff final Seg Neuts % (Manual) 70 Band Neuts % (Manual) 6 Lymphocytes % (Manual) 18 Monocytes % (Manual) 3 Eosinophils % (Manual) 1 Basophils % (Manual) 1 Metamyelocytes % (Man) 1 Abs Neuts (Manual) 1.4 L Nucleated RBCs/100 WBC 1 H Differential Comment . Toxic Granulation Platelet Estimate Low L Platelet Morphology Normal Sodium Potassium Chloride Carbon Dioxide Anion Gap BUN Creatinine Estimated GFR Random Glucose Lactic Acid Calcium Total Bilirubin AST ALT Alkaline Phosphatase Total Creatine Kinase Troponin I B-Natriuretic Peptide Total Protein Albumin Urine Color Urine Clarity Urine pH Ur Specific [place] Urine Protein Urine Glucose (UA) Urine Ketones Urine Occult Blood Urine Nitrate Urine Bilirubin Urine Urobilinogen Ur Leukocyte Esterase Urine Mucus Micro UA Comment Urine Culture Comments Serum Alcohol Blood Type Antibody Screen Ab Screen Tube Method Antibody Identification Crossmatch MTS Gel Crossmatch Bld Prod Order Comment - Imaging Impressions Chest CTA 10/29/17 12:11 CONCLUSION: 1. No evidence of pulmonary embolism. 2. New subsegmental airspace disease in the right lower lobe characteristic of pneumonitis. 3. Decreasing size of left axillary mass. 4. No other significant change. Chest X-Ray 10/29/17 12:11 CONCLUSION: Negative for acute process. 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 Lindsey. Pt is also an alcoholic and has been drinking heavily the last 12 days, a quart of rum per day, due to some depression over his cancer diagnosis and the rigors of treatment. - He [place] [facility] [place] with complaints of SOB and pt felt like he was starting to go into alcohol withdrawals. - His labs in the ED noted WBC count 1.9, Hgb 5.9/Hct 17.2, Platelet count 15, 000. - His pancytopenia felt to like be due to chemotherapy side effects. - Pt has been having loose black stools 1-2 times daily, small amounts, for the last week. - Pt s/p transfusion with 2 units PRBCs and 1 units of platelet on 10/29 - Repeat labs on 10/30 with Hgb 8.2/Hct 23.9, platelet count 30,000 - Protonix 40mg IV BID - Pt had recent outpt EGD/colonoscopy on 03/15/17 which revealed irregular Z- line, erythematous gastritis in the gastric antrum, 2 medium sized sessile polyps in the rectum, internal hemorrhoids - Stool for occult blood ordered - Pt is on liquid diet currently - If pts continues to have melanotic stool and/or his blood count trends back down, consider GI consultation. - Monitor labs closely - Supportive care - Chemical DVT prophylaxis is contraindicated with thrombocytopenia SOB, likely multifactorial COPD Possible pneumonitis on CTA - Pts SOB is likely multifactorial, related to his chronic COPD, acute on chronic anemia, and possible pneumonitis noted on imaging - Pulmonary CTA with no evidence of PE, new subsegmental airspace disease in the right lower lobe characteristic of pneumonitis, decreasing size of left axillary mass, otherwise no other significant change. - Pt is normally on 2-3L of supplemental O2 at home. - Cont. home meds, Breo Ellipta - Duonebs Q4H scheduled Elevated Troponin I - His troponin was elevated at 0.52 in the ED. - Troponin trended up to 1.12 --> 1.93 - Cardiology was consulted - [place] to likely be demand mediated in the setting of his acute anemia. No ischemic changes on EKGs - Pt planned for continued medical management at this time. - Pt felt to not be a candidate for antiplatelet or anticoagulant therapy at this time. - 2D echo ordered Alcohol abuse EtOH withdrawal - His last alcoholic beverage was yesterday and he does feel shaky today. - CIWA protocol - Librium 25mg BID Stage IV metastatic SCC undergoing chemo and XRT Radiation dermatitis - Pt follows with Dr. Lindsey and Dr. Silveira for medical and radiation oncology - He has a rash in the left axilla which he reports is from radiation therapy and has reported some weeping from the wound. - Pt received Vancomycin and Cefepime in the ED and blood cultures were drawn prior to that. - Consult wound care, they are not available on the weekends unfortunately. - Blood cultures are pending - Monitor for any fevers - Appreciate Oncology consultation (2) Metastatic squamous cell carcinoma Code(s): C79.9 - Secondary malignant neoplasm of unspecified site Status: Chronic (3) COPD (chronic obstructive pulmonary disease) Code(s): J44.9 - Chronic obstructive pulmonary disease, unspecified Status: Chronic (4) Pancytopenia Code(s): D61.818 - Other pancytopenia Status: Acute (5) HTN (hypertension) Code(s): I10 - Essential (primary) hypertension Status: Chronic (6) Hyperlipidemia Code(s): E78.5 - Hyperlipidemia, unspecified Status: Chronic (7) Alcohol abuse Code(s): F10.10 - Alcohol abuse, uncomplicated Status: Chronic (8) Elevated troponin I level Code(s): R74.8 - Abnormal levels of other serum enzymes Status: Acute (1) Anemia Qualifiers: Anemia type: unspecified type Qualified Code(s): D64.9 - Anemia, unspecified
[2017-10-30] MEDS: Metoprolol Tartrate 25 MG Tablet PO SCH ×2 (10:28→21:18)
[2017-10-30] MEDS: Lisinopril 10 MG Tablet PO SCH ×2 (10:28→21:17)
[2017-10-30] MEDS: Senna/Docusate Sodium 8.6/50 MG Tablet PO SCH ×2 (10:28→21:18)
[2017-10-30] MEDS: chlordiazePOXIDE 25 MG Capsule PO SCH ×2 (10:28→21:18)
[2017-10-30] MEDS: Sod Chloride 0.9% Inj 1,000 ML IV.CONT SCH ×2 (10:42→22:49)
[2017-10-31] MEDS: Pantoprazole Inj 40 MG Vial IV.PUSH SCH ×2 (04:05→16:59)
[2017-10-31 07:37] LABS: Baso % (Auto) 0.4 % (0.0-2.0); Eos % (Auto) 1.3 % (0.0-4.0); Hemoglobin 7.1 gm/dL (13.0-17.0); Lymph # (Auto) 0.3 th/mm3 (1.0-4.8); Lymph % (Auto) 22.9 % (9.0-44.0); Mean Corpuscular HGB Conc 34.3 % (32.0-36.0); Mean Corpuscular Hemoglobin 32.7 pg (27.0-34.0); Mean Corpuscular Volume 95.4 fL (80.0-100.0); Mean Platelet Volume 7.9 fL (7.0-11.0); Mono # (Auto) 0.1 th/mm3 (0.0-0.9); Mono % (Auto) 9.2 % (0.0-8.0); Neut # (Auto) 0.8 th/mm3 (1.8-7.7); Neut % (Auto) 66.2 % (16.0-70.0); Platelet Count 23 th/mm3 (150-450); Red Blood Count 2.18 mil/mm3 (4.50-5.90); Red Cell Distribution Width 20.5 % (11.6-17.2); White Blood Count 1.2 th/mm3 (4.0-11.0)
[2017-10-31 07:52] LABS: Hematocrit 20.8 % (39.0-51.0)
[2017-10-31 08:00] LABS: Anion Gap 12 meq/L (5-15); Blood Urea Nitrogen 9 mg/dL (7-18); Calcium 8.7 mg/dL (8.5-10.1); Carbon Dioxide 23.8 meq/L (21.0-32.0); Chloride 102 meq/L (98-107); Glomerular Filtration Rate Greater Than 89 mL/min (>89); Glucose,Random 106 mg/dL (74-106); Potassium 3.5 meq/L (3.5-5.1); Sodium 138 meq/L (136-145)
[2017-10-31] MEDS: Senna/Docusate Sodium 8.6/50 MG Tablet PO SCH ×2 (09:23→21:31)
[2017-10-31] MEDS: Metoprolol Tartrate 25 MG Tablet PO SCH ×2 (09:23→21:32)
[2017-10-31] MEDS: chlordiazePOXIDE 25 MG Capsule PO SCH ×2 (09:23→21:32)
[2017-10-31] MEDS: Lisinopril 10 MG Tablet PO SCH ×2 (09:23→21:31)
--- NOTE | 2017-10-31 09:53 | P.PNCA ---
Subjective Interval history: Patient seen and examined. No chest pain or dyspnea. Did not receive any further blood transfusion since yesterday. Hgb dropped further to 7.1 from 8.2. He did not have any further BMs and is on the commode currently. Physical Exam Vital signs: Vital Signs 10/30/17 11:43 10/30/17 12:00 10/30/17 16:00 Temperature 98.0 F 98.3 F Pulse Rate 96 H 104 H 100 H Respiratory Rate 14 18 18 Blood Pressure 129/63 160/56 H Pulse Oximetry 99 98 10/30/17 16:32 10/30/17 20:00 10/30/17 21:12 Temperature 98.2 F Pulse Rate 86 107 H 85 Respiratory Rate 14 18 16 Blood Pressure 103/50 L Pulse Oximetry 99 10/31/17 00:00 10/31/17 01:31 10/31/17 03:56 Temperature 97.4 F L Pulse Rate 96 H 84 82 Respiratory Rate 18 16 Blood Pressure 124/59 L Pulse Oximetry 97 10/31/17 03:57 10/31/17 04:00 10/31/17 08:00 Temperature 98 F 97.9 F Pulse Rate 82 95 H 97 H Respiratory Rate 17 20 17 Blood Pressure 101/59 L 114/62 Pulse Oximetry 98 100 10/31/17 08:28 Temperature Pulse Rate 113 H Respiratory Rate 14 Blood Pressure Pulse Oximetry 98 Intake & Output 10/30/17 10/31/17 10/31/17 18:59 06:59 18:59 Intake Total 3810 / 3810 1240 / 1240 Output Total 800 / 800 800 / 800 Balance 3010 / 3010 440 / 440 Intake: IV 2850 / 2850 1000 / 1000 NS Inj 1,000 ML @ 70 mls/hr IV. 1000 / 1000 1000 / 1000 CONT .[id number] KATIE Rx#:[id number] NS Inj 250 ML @ 15 mls/hr IV. 250 / 250 SIG ONCE KATIE Rx#:[id number] Oral 960 / 960 240 / 240 Output: Urine 800 / 800 800 / 800 Other: Date of Last Bowel Movement 10/29/17 Narrative: GENERAL: NAD, AAOx3 SKIN: Left axilla skin is raw, beefy with denuded skin and LUE/chest shoulder with radiation skin changes CARDIO: Regular, tachycardic, no mrg RESP: No accessory muscle use. Clear to auscultation. Breath sounds equal bilaterally. ABD: +BS, soft, non-tender, nondistended. EXT: No LE edema edema. No obvious deformities. Assessment and Plan - Plan ASSESSMENT: NSTEMI suspect type II demand ischemia in setting of severe anemia Pancytopenia with severe anemia 5.9g on admission -->8.2 s/p 2uPRBC -->7.1 today and PLT 13k -->23k GI bleed, suspected upper with melanotic stools Metastatic Squamous Cell Carcinoma with left axillary/anterior chest wall mass s /p chemi and XRT Alcohol abuse with active alcohol withdrawal HTN HLD RECOMMENDATIONS: Patient is not a good candidate for invasive cardiac catheterization at this time due to severe anemia and thrombocytopenia with suspected active GI bleed. He has no anginal symptoms. His ECG is non-ischemic. It is quite possible that his troponin elevation is due to demand ischemia in setting of severe anemia and stressors above. Will continue with medical management at this time. He currently is not a candidate for either antiplatelet or anticoagulation therapy. -Transfuse PRBC for Hgb > 10 -Agree with lisinopril and atorvastatin, increase metoprolol to 50mg bid. -echocardiogram to evaluate LV systolic function -troponins until downtrending -GI consult to evaluate for GIB -rest per primary team will sign off. call with further questions.
[2017-10-31] MEDS ORDERED: Metoprolol Tartrate 25 MG Tablet PO ONE (09:54)
[2017-10-31] MEDS ORDERED: Sodium Chlor 0.9% Inj 250 ML IV.SIG SCH (10:00)
[2017-10-31 10:29] LABS: Eosinophils 4 % (0-4); Lymphocytes 27 % (9-44); Metamyelocytes 1 % (0-1); Monocytes 5 % (0-8)
[2017-10-31 10:30] LABS: Platelet Morphology Normal (Normal)
--- NOTE | 2017-10-31 11:28 | P.PNIM ---
Subjective Interval history: Pt reports a small dark BM this morning Denies any abd pain No nausea/vomiting, tolerating oral intake Denies any chest pain. Still feels SOB with ambulation Pt is on 3L supplemental O2 via NC Physical Exam Vital signs: Vital Signs 10/30/17 11:43 10/30/17 12:00 10/30/17 16:00 Temperature 98.0 F 98.3 F Pulse Rate 96 H 104 H 100 H Respiratory Rate 14 18 18 Blood Pressure 129/63 160/56 H Pulse Oximetry 99 98 10/30/17 16:32 10/30/17 20:00 10/30/17 21:12 Temperature 98.2 F Pulse Rate 86 107 H 85 Respiratory Rate 14 18 16 Blood Pressure 103/50 L Pulse Oximetry 99 10/31/17 00:00 10/31/17 01:31 10/31/17 03:56 Temperature 97.4 F L Pulse Rate 96 H 84 82 Respiratory Rate 18 16 Blood Pressure 124/59 L Pulse Oximetry 97 10/31/17 03:57 10/31/17 04:00 10/31/17 08:00 Temperature 98 F 97.9 F Pulse Rate 82 95 H 97 H Respiratory Rate 17 20 17 Blood Pressure 101/59 L 114/62 Pulse Oximetry 98 100 10/31/17 08:28 Temperature Pulse Rate 113 H Respiratory Rate 14 Blood Pressure Pulse Oximetry 98 Intake & Output 10/30/17 10/31/17 10/31/17 18:59 06:59 18:59 Intake Total 3810 / 3810 1240 / 1240 Output Total 800 / 800 800 / 800 Balance 3010 / 3010 440 / 440 Intake: IV 2850 / 2850 1000 / 1000 NS Inj 1,000 ML @ 70 mls/hr IV. 1000 / 1000 1000 / 1000 CONT .[id number] KATIE Rx#:[id number] NS Inj 250 ML @ 15 mls/hr IV. 250 / 250 SIG ONCE KATIE Rx#:[id number] Oral 960 / 960 240 / 240 Output: Urine 800 / 800 800 / 800 Other: Date of Last Bowel Movement 10/29/17 Narrative: GENERAL: NAD, AAOx3 SKIN: Left axilla skin is raw, beefy with denuded skin and LUE/chest shoulder with radiation skin changes CARDIO: Regular, tachycardic RESP: No accessory muscle use. CTA bilaterally. ABD: +BS, soft, non-tender, nondistended. EXT: No LE edema edema. No obvious deformities. Results - Labs CBC & Chem 7: 10/31/17 06:40 10/31/17 06:40 Laboratory Results - last 24 hr 10/31/17 10/31/17 06:40 06:40 WBC 1.2 L RBC 2.18 L Hgb 7.1 L Hct 20.8 L* MCV 95.4 MCH 32.7 MCHC 34.3 RDW 20.5 H D Plt Count 23 L MPV 7.9 Prelim Diff (Auto) Slide review pending Neut % (Auto) 66.2 Lymph % (Auto) 22.9 [place] % (Auto) 9.2 H Eos % (Auto) 1.3 Baso % (Auto) 0.4 Neut # (Auto) 0.8 L Lymph # (Auto) 0.3 L [place] # (Auto) 0.1 Eos # (Auto) 0.0 Baso # (Auto) 0.0 WBC Differential Manual diff final Seg Neuts % (Manual) 59 Band Neuts % (Manual) 3 Lymphocytes % (Manual) 27 Monocytes % (Manual) 5 Eosinophils % (Manual) 4 Basophils % (Manual) 1 Metamyelocytes % (Man) 1 Abs Neuts (Manual) 0.8 L Differential Comment . Platelet Estimate Low L Platelet Morphology Normal Sodium 138 Potassium 3.5 Chloride 102 Carbon Dioxide 23.8 Anion Gap 12 BUN 9 Creatinine 0.54 L Estimated GFR Greater than 89 Random Glucose 106 Calcium 8.7 Microbiology 10/29/17 12:33 Blood - Peripheral Aerobic Blood Culture - Preliminary No growth in 2 days 10/29/17 12:33 Blood - Peripheral Anaerobic Blood Culture - Preliminary No growth in 2 days 10/29/17 12:32 Blood - Peripheral Aerobic Blood Culture - Preliminary No growth in 2 days 10/29/17 12:32 Blood - Peripheral Anaerobic Blood Culture - Preliminary No growth in 2 days - Imaging Chest CTA 10/29/17 12:11 CONCLUSION: 1. No evidence of pulmonary embolism. 2. New subsegmental airspace disease in the right lower lobe characteristic of pneumonitis. 3. Decreasing size of left axillary mass. 4. No other significant change. Chest X-Ray 10/29/17 12:11 CONCLUSION: Negative for acute process. 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 Lindsey. Pt is also an alcoholic and has been drinking heavily the last 12 days, a quart of rum per day, due to some depression over his cancer diagnosis and the rigors of treatment. - He presented to the ED at [facility] [place]29[place] with complaints of SOB and pt felt like he was starting to go into alcohol withdrawals. - His labs in the ED noted WBC count 1.9, Hgb 5.9/Hct 17.2, Platelet count 15, 000. - His pancytopenia felt to like be due to chemotherapy side effects. - Pt has been having loose black stools 1-2 times daily, small amounts, for the last week. - Pt s/p transfusion with 2 units PRBCs and 1 units of platelet on 10/29 - Repeat labs on 10/30 with Hgb 8.2/Hct 23.9, platelet count 30,000 - Repeat labs on 10/31 with decrease in Hgb to 7.1 - Protonix 40mg IV BID - Pt had recent outpt EGD/colonoscopy on 03/15/17 which revealed irregular Z- line, erythematous gastritis in the gastric antrum, 2 medium sized sessile polyps in the rectum, internal hemorrhoids - Stool for occult blood ordered - Pt is on liquid diet currently - GI consultation requested - Pt to be transfused with another 2 units PRBCs today - Monitor H/H - Monitor labs closely - Supportive care - Chemical DVT prophylaxis is contraindicated with thrombocytopenia SOB, likely multifactorial COPD Possible pneumonitis on CTA - Pts SOB is likely multifactorial, related to his chronic COPD, acute on chronic anemia, and possible pneumonitis noted on imaging - Pulmonary CTA with no evidence of PE, new subsegmental airspace disease in the right lower lobe characteristic of pneumonitis, decreasing size of left axillary mass, otherwise no other significant change. - Pt is normally on 2-3L of supplemental O2 at home. - Cont. home meds, Breo Ellipta - Duonebs Q4H scheduled Elevated Troponin I - His troponin was elevated at 0.52 in the ED. - Troponin trended up to 1.12 --> 1.93 - Cardiology is following. - [place] to likely be demand mediated in the setting of his acute anemia. No ischemic changes on EKGs - Pt planned for continued medical management at this time, pt is on Lisinopril 10mg BID and Metoprolol 25mg po BID with parameters. - Pt felt to not be a candidate for antiplatelet or anticoagulant therapy at this time. - 2D echo ordered Alcohol abuse EtOH withdrawal - His last alcoholic beverage was yesterday and he does feel shaky today. - [facility] protocol - Librium 25mg BID Stage IV metastatic SCC undergoing chemo and XRT Radiation dermatitis - Pt follows with Dr. Lindsey and Dr. Silveira for medical and radiation oncology - He has a rash in the left axilla which he reports is from radiation therapy and has reported some weeping from the wound. - Pt received Vancomycin and Cefepime in the ED and blood cultures were drawn prior to that. - Consult wound care, they are not available on the weekends unfortunately. - Blood cultures with NGTD - Monitor for any fevers - Appreciate Oncology consultation The exam, history, and the medical decision-making described in the above note were completed with the assistance of the mid-level provider. I reviewed and agree with the findings presented. I attest that I had a [id number] encounter with the patient on the same day, and personally performed and documented my assessment and findings in the medical record. (2) Alcohol withdrawal Code(s): F10.239 - Alcohol dependence with withdrawal, unspecified Status: Acute (3) Elevated troponin I level Code(s): R74.8 - Abnormal levels of other serum enzymes Status: Acute (4) Lymphoma Code(s): C85.90 - Non-Hodgkin lymphoma, unspecified, unspecified site Status: Acute (5) Pancytopenia Code(s): D61.818 - Other pancytopenia Status: Acute (1) Anemia Qualifiers: Anemia type: unspecified type Qualified Code(s): D64.9 - Anemia, unspecified (2) Alcohol withdrawal Qualifiers: Complication of substance-induced condition: with unspecified complication Qualified Code(s): F10.239 - Alcohol dependence with withdrawal, unspecified (4) Lymphoma Qualifiers: Lymphoma type: unspecified type 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
--- NOTE | 2017-10-31 11:50 | P.PNONC ---
Subjective Interval history: Afebrile Patient reports he is feeling somewhat improved today Shortness of breath improved; denies chest pain Reports he had a bowel movement this morning that was "black" Objective Vital Signs/Intake & Output: Vital Signs 10/30/17 12:00 10/30/17 16:00 10/30/17 16:32 Temperature 98.0 F 98.3 F Pulse Rate 104 H 100 H 86 Respiratory Rate 18 18 14 Blood Pressure 129/63 160/56 H Pulse Oximetry 99 98 10/30/17 20:00 10/30/17 21:12 10/31/17 00:00 Temperature 98.2 F 97.4 F L Pulse Rate 107 H 85 96 H Respiratory Rate 18 16 18 Blood Pressure 103/50 L 124/59 L Pulse Oximetry 99 97 10/31/17 01:31 10/31/17 03:56 10/31/17 03:57 Temperature Pulse Rate 84 82 82 Respiratory Rate 16 17 Blood Pressure Pulse Oximetry 10/31/17 04:00 10/31/17 08:00 10/31/17 08:28 Temperature 98 F 97.9 F Pulse Rate 95 H 97 H 113 H Respiratory Rate 20 17 14 Blood Pressure 101/59 L 114/62 Pulse Oximetry 98 100 98 Intake & Output 10/30/17 10/31/17 10/31/17 18:59 06:59 18:59 Intake Total 3810 / 3810 1240 / 1240 Output Total 800 / 800 800 / 800 Balance 3010 / 3010 440 / 440 Intake: IV 2850 / 2850 1000 / 1000 NS Inj 1,000 ML @ 70 mls/hr IV. 1000 / 1000 1000 / 1000 CONT .[id number] HELEN Rx#:[id number] NS Inj 250 ML @ 15 mls/hr IV. 250 / 250 SIG ONCE HELEN Rx#:[id number] Oral 960 / 960 240 / 240 Output: Urine 800 / 800 800 / 800 Other: Date of Last Bowel Movement 10/29/17 10/30/17 Result Diagrams: 10/31/17 06:40 10/31/17 06:40 Laboratory Results: Laboratory Results - last 24 hr 10/31/17 10/31/17 10/31/17 06:40 06:40 11:22 WBC 1.2 L RBC 2.18 L Hgb 7.1 L Hct 20.8 L* MCV 95.4 MCH 32.7 MCHC 34.3 RDW 20.5 H D Plt Count 23 L MPV 7.9 Prelim Diff (Auto) Slide review pending Neut % (Auto) 66.2 Lymph % (Auto) 22.9 [place] % (Auto) 9.2 H Eos % (Auto) 1.3 Baso % (Auto) 0.4 Neut # (Auto) 0.8 L Lymph # (Auto) 0.3 L [place] # (Auto) 0.1 Eos # (Auto) 0.0 Baso # (Auto) 0.0 WBC Differential Manual diff final Seg Neuts % (Manual) 59 Band Neuts % (Manual) 3 Lymphocytes % (Manual) 27 Monocytes % (Manual) 5 Eosinophils % (Manual) 4 Basophils % (Manual) 1 Metamyelocytes % (Man) 1 Abs Neuts (Manual) 0.8 L Differential Comment . Platelet Estimate Low L Platelet Morphology Normal Sodium 138 Potassium 3.5 Chloride 102 Carbon Dioxide 23.8 Anion Gap 12 BUN 9 Creatinine 0.54 L Estimated GFR Greater than 89 Random Glucose 106 Calcium 8.7 MTS Gel Crossmatch See Detail Culture Results: Microbiology 10/29/17 12:33 Aerobic Blood Culture - Preliminary Blood - Peripheral No growth in 2 days Anaerobic Blood Culture - Preliminary No growth in 2 days 10/29/17 12:32 Aerobic Blood Culture - Preliminary Blood - Peripheral No growth in 2 days Anaerobic Blood Culture - Preliminary No growth in 2 days Medications: Active Medications Generic Name Dose Route Start Last Admin Trade Name Freq PRN Reason Stop Dose Admin Albuterol 1 ampul 10/29/17 16:00 10/31/17 08:27 Duoneb Neb (Helen) NEB 1 ampul Q4HR NEB HELEN Administration Atorvastatin Calcium 20 mg 10/30/17 09:00 10/31/17 09:23 Lipitor PO 20 mg DAILY HELEN Administration Chlordiazepoxide 25 mg 10/29/17 21:00 10/31/17 09:23 Librium PO 25 mg BID HELEN Administration Fluticasone/Vilanterol 1 puff 10/30/17 09:00 10/31/17 09:23 Breo Ellipta 100/25 Mcg Inh INH 1 puff DAILY HELEN Administration Sodium Chloride 1,000 mls @ 70 mls/hr 10/29/17 16:00 10/30/17 22:49 Ns Inj IV.CONT 70 mls/hr .[id number] HELEN Administration Lisinopril 10 mg 10/29/17 21:00 10/31/17 09:23 Prinivil PO 10 mg BID HELEN Administration Pantoprazole Sodium 40 mg 10/29/17 16:00 10/31/17 04:05 Protonix Inj IV.PUSH 40 mg Q12H HELEN Administration Senna/Docusate Sodium 1 tab 10/29/17 21:00 10/31/17 09:23 Merced-Colace PO Not Given BID HELEN Silver Sulfadiazine 1 applicatio 10/30/17 09:00 10/31/17 09:24 Silvadene 1% Cream (50 Gm) TOPICAL 1 applicatio DAILY HELEN Administration Objective Remarks: GENERAL: Disheveled older male resting in bed in no obvious distress. SKIN: Warm and dry. Excoriated skin to left axilla HEAD: Normocephalic. EYES: No scleral icterus. No injection or drainage. NECK: Supple, trachea midline. No JVD or lymphadenopathy. CARDIOVASCULAR: Regular rate and rhythm. Tachycardic. RESPIRATORY: Coarse lung sounds anteriorly. On 3 L nasal cannula. GASTROINTESTINAL: Abdomen soft, non-tender, nondistended. EXTREMITIES: No cyanosis, or edema. MUSCULOSKELETAL: Generalized weakness NEUROLOGICAL: No obvious focal deficit. Awake, alert, and oriented x3. 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 He was originally diagnosed in July 2017. Primary either from lung versus skin suspected. He has a very large supraclavicular mass on the left arm. He is currently being treated with carboplatin and Taxol on an outpatient basis with his last treatment being approximately 2 weeks ago. Unfortunately he has been coping with his diagnosis via alcohol. He reports drinking a quart of rum per day. He also mentions he has had frequent loose dark stools. He was noted to have severe anemia on admission with a hemoglobin of 5.9. 1. Neutropenia worse today. The patient was placed on neutropenic precautions. He did receive G-CSF support after his last cycle of chemotherapy 5 days, however since his counts are worsening I will start him on Neupogen at 480 mcg's for now. 2. Consult GI for worsening anemia, reports of black stools per patient. 3. Cardiology team has ordered 2 units packed red blood cells to be transfused today. 4. Monitor CBC. Supportive care. Agree with transferring him to oncology floor as he is neutropenic. - Attending Statement The exam, history, and the medical decision-making described in the above note were completed with the assistance of the mid-level provider. I reviewed and agree with the findings presented. I attest that I had a [id number] encounter with the patient on the same day, and personally performed and documented my assessment and findings in the medical record. Patient seen and examined. We discussed the use of Aquaphor for the radiated area/radiation dermatitis. He is using Silvadene at present. Wound care has been consulted. He is pending a consultation with psychiatry for his depression associated with the diagnosis of cancer. He is reluctant to receive G-CSF due to the bone pain. He describes a lot of toxicity associated with it. Additional transfusion 1 unit of packed red cell is scheduled. Plan for transfer to the oncology floor. Pancytopenia. Continue support. No additional site of bleeding. Dr. Naik will resume care tomorrow.
--- NOTE | 2017-10-31 15:18 | P.CONGI ---
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 Our service has been consulted to evaluate pt for anemia and possible GIB. Pt reports he has been having 1-2 episodes of black stools a day for the past two weeks. Denies any nausea, vomiting, abdominal pain, BRBPR. Does report after his last chemotherapy treatment needing a blood transfusion, denies any prior history of anemia. Prior to pt coming to the hospital he reports heavy drinking for the past 12 days, having a hard time cope with his cancer diagnosis. States is normally just a social drinker but did have one other episode of binge drinking in 2014 after his mother . Pt had EGD and colonoscopy in February 2017 by our service --> Irregular Z line, erythematous gastritis in the gastric antrum, normal duodenal mucosa, two medium sized sessile polyp in the rectum, internal hemorrhoids. Pathology revealed Reaves's esophagus and hyperplastic polyps. Denies NSAID use and blood thinners. <Jonelle Yee - Last Filed: 10/31/17 15:03> Review of Systems Constitutional: Denies chills, Denies fever(s) Cardiovascular: Denies lightheadedness Gastrointestinal: Reports black, tarry stools, Denies abdominal pain, Denies bright, red blood in stools, Denies nausea, Denies vomiting <Jonelle Yee - Last Filed: 10/31/17 15:03> [facility] - History History Provided By: Patient, Medical Record - Medical History Medical History: Medical History (Last Reviewed 10/30/17 @ 09:10 by Ismael Alonzo) COPD (chronic obstructive pulmonary disease) Hypertension - Surgical History Surgical History: Surgical History (Last Reviewed 10/30/17 @ 09:10 by Ismael Alonzo) History of hip replacement - Tobacco History Second Hand Smoke Exposure: No Tobacco Use In Past 30 Days: No Smoking Status: Current every day smoker Tobacco Type: Cigarettes - Alcohol History How Often Do You Have a Drink Containing Alcohol: 4 or more times a week - Substance Use History Substance History: No History of Abuse - Travel History Recent Travel in the [facility] Within the Last 8 Weeks: No Recent Travel Out of the Country Within the Last 8 Weeks: No - Immunization History Tetanus Immunization: >5 Years Hx Influenza Vaccine This Season: No <Jonelle Yee - Last Filed: 10/31/17 15:03> - Medical History Medical History: Medical History (Last Reviewed 10/30/17 @ 09:10 by Ismael Alonzo) COPD (chronic obstructive pulmonary disease) Hypertension - Surgical History Surgical History: Surgical History (Last Reviewed 10/30/17 @ 09:10 by Ismael Alonzo) History of hip replacement <Diann Church - Last Filed: 10/31/17 22:02> Medications and Allergies Active Medications: Active Medications Acetaminophen (Tylenol) 650 mg PO Q4H PRN PRN Reason: Temp > 100.4 Albuterol (Duoneb Neb (Helen)) 1 ampul NEB Q4HR NEB [facility] Last Admin: 10/31/17 12:04 Dose: 1 ampul Atorvastatin Calcium (Lipitor) 20 mg PO DAILY [facility] Last Admin: 10/31/17 09:23 Dose: 20 mg Chlordiazepoxide (Librium) 25 mg PO BID [facility] Last Admin: 10/31/17 09:23 Dose: 25 mg Flumazenil (Romazecon Inj) 0.2 mg IV.PUSH Q1M PRN PRN Reason: OVERSEDATION Fluticasone/Vilanterol (Breo Ellipta 100/25 Mcg Inh) 1 puff INH DAILY [facility] Last Admin: 10/31/17 09:23 Dose: 1 puff Haloperidol Lactate (Haldol Inj) 1 mg IV.PUSH Q15M PRN PRN Reason: for severe agitation Vancomycin HCl 1,000 mg/ (Sodium Chloride) 250 mls @ 250 mls/hr IV.SIG [employer] [facility] Stop: 11/01/17 14:59 Sodium Chloride (Ns Inj) 1,000 mls @ 70 mls/hr IV.CONT .[id number] [facility] Last Infusion: 10/31/17 14:50 Dose: Infused Sodium Chloride (Ns Inj) 250 mls @ 15 mls/hr IV.SIG ONCE [facility] Stop: 11/01/17 02:39 Last Admin: 10/31/17 13:58 Dose: 15 mls/hr Filgrastim 480 mcg/ Dextrose 51.6 mls @ 100 mls/hr IV.SIG DAILY@1400 [facility] Lisinopril (Prinivil) 10 mg PO BID [facility] Last Admin: 10/31/17 09:23 Dose: 10 mg Lorazepam (Ativan) 1 mg PO Q4H PRN PRN Reason: for CIWA 8-10 Lorazepam (Ativan Inj) 2 mg IV.PUSH Q2H PRN PRN Reason: for CIWA 11-14 Lorazepam (Ativan Inj) 2 mg IV.PUSH Q1H PRN PRN Reason: for CIWA 15-20 Lorazepam (Ativan Inj) 2 mg IV.PUSH Q15M PRN PRN Reason: for CIWA > 20 Lorazepam (Ativan Inj) 1 mg IV.PUSH Q4H PRN PRN Reason: for CIWA 8-10 Lorazepam (Ativan) 2 mg PO Q2H PRN PRN Reason: for CIWA 11-14 Metoprolol Tartrate (Lopressor) 50 mg PO BID [facility] Ondansetron HCl (Zofran Odt) 4 mg PO Q6H PRN PRN Reason: NAUSEA OR VOMITING Pantoprazole Sodium (Protonix Inj) 40 mg IV.PUSH Q12H [facility] Last Admin: 10/31/17 04:05 Dose: 40 mg Senna/Docusate Sodium (Merced-Colace) 1 tab PO BID [facility] Last Admin: 10/31/17 09:23 Dose: Not Given Silver Sulfadiazine (Silvadene 1% Cream (50 Gm)) 1 applicatio TOPICAL DAILY [facility] Last Admin: 10/31/17 09:24 Dose: 1 applicatio <Jonelle Yee - Last Filed: 10/31/17 15:03> Active Medications: Active Medications Acetaminophen (Tylenol) 650 mg PO Q4H PRN PRN Reason: Temp > 100.4 Albuterol (Duoneb Neb (Helen)) 1 ampul NEB Q4HR NEB [facility] Last Admin: 10/31/17 16:29 Dose: 1 ampul Atorvastatin Calcium (Lipitor) 20 mg PO DAILY [facility] Last Admin: 10/31/17 09:23 Dose: 20 mg Chlordiazepoxide (Librium) 25 mg PO BID [facility] Last Admin: 10/31/17 21:32 Dose: 25 mg Flumazenil (Romazecon Inj) 0.2 mg IV.PUSH Q1M PRN PRN Reason: OVERSEDATION Fluticasone/Vilanterol (Breo Ellipta 100/25 Mcg Inh) 1 puff INH DAILY [facility] Last Admin: 10/31/17 09:23 Dose: 1 puff Haloperidol Lactate (Haldol Inj) 1 mg IV.PUSH Q15M PRN PRN Reason: for severe agitation Vancomycin HCl 1,000 mg/ (Sodium Chloride) 250 mls @ 250 mls/hr IV.SIG [employer] [facility] Stop: 11/01/17 14:59 Sodium Chloride (Ns Inj) 1,000 mls @ 70 mls/hr IV.CONT .[id number] [facility] Last Infusion: 10/31/17 14:50 Dose: Infused Sodium Chloride (Ns Inj) 250 mls @ 15 mls/hr IV.SIG ONCE [facility] Stop: 11/01/17 02:39 Last Admin: 10/31/17 13:58 Dose: 15 mls/hr Filgrastim 480 mcg/ Dextrose 51.6 mls @ 206.4 mls/hr IV.SIG DAILY@1400 [facility] Last Infusion: 10/31/17 18:16 Dose: Infused Lisinopril (Prinivil) 10 mg PO BID [facility] Last Admin: 10/31/17 21:31 Dose: 10 mg Lorazepam (Ativan) 1 mg PO Q4H PRN PRN Reason: for CIWA 8-10 Lorazepam (Ativan Inj) 2 mg IV.PUSH Q2H PRN PRN Reason: for CIWA 11-14 Lorazepam (Ativan Inj) 2 mg IV.PUSH Q1H PRN PRN Reason: for CIWA 15-20 Lorazepam (Ativan Inj) 2 mg IV.PUSH Q15M PRN PRN Reason: for CIWA > 20 Lorazepam (Ativan Inj) 1 mg IV.PUSH Q4H PRN PRN Reason: for CIWA 8-10 Lorazepam (Ativan) 2 mg PO Q2H PRN PRN Reason: for CIWA 11-14 Metoprolol Tartrate (Lopressor) 50 mg PO BID [facility] Last Admin: 10/31/17 21:32 Dose: 50 mg Ondansetron HCl (Zofran Odt) 4 mg PO Q6H PRN PRN Reason: NAUSEA OR VOMITING Pantoprazole Sodium (Protonix Inj) 40 mg IV.PUSH Q12H [facility] Last Admin: 07/15/18 16:59 Dose: 40 mg Senna/Docusate Sodium ([place]-Colace) 1 tab PO BID [facility] Last Admin: 10/31/17 21:31 Dose: 1 tab Silver Sulfadiazine (Silvadene 1% Cream (50 Gm)) 1 applicatio TOPICAL DAILY [facility] Last Admin: 10/31/17 09:24 Dose: 1 applicatio <Shiva Churchbre A - Last Filed: 10/31/17 22:02> Allergies Allergy/AdvReac Type Severity Reaction Status Date / Time No Known Allergies Allergy Unknown Uncoded 08/13/17 10:45 Home Medications Medication Instructions Recorded Confirmed Type albuterol sulfate [Ventolin HFA] 2 puff INHALATION Q4-6H PRN 10/29/17 10/29/17 History atorvastatin 20 mg PO DAILY 10/29/17 10/29/17 History fluticasone-vilanterol [Breo 1 inh INHALATION DAILY 10/29/17 10/29/17 History Ellipta] ipratropium-albuterol 3 ml INHALATION QID 10/29/17 10/29/17 History lisinopril 10 mg PO BID 10/29/17 10/29/17 History lorazepam 1 mg PO BID 10/29/17 10/29/17 History metoprolol tartrate 25 mg PO BID 10/29/17 10/29/17 History pantoprazole 40 mg PO DAILY 10/29/17 10/29/17 History Exam Vital signs: Vital Signs 10/30/17 16:00 10/30/17 16:32 10/30/17 20:00 Temperature 98.3 F 98.2 F Pulse Rate 100 H 86 107 H Respiratory Rate 18 14 18 Blood Pressure 160/56 H 103/50 L Pulse Oximetry 98 99 10/30/17 21:12 10/31/17 00:00 10/31/17 01:31 Temperature 97.4 F L Pulse Rate 85 96 H 84 Respiratory Rate 16 18 16 Blood Pressure 124/59 L Pulse Oximetry 97 10/31/17 03:56 10/31/17 03:57 10/31/17 04:00 Temperature 98 F Pulse Rate 82 82 95 H Respiratory Rate 17 20 Blood Pressure 101/59 L Pulse Oximetry 98 10/31/17 08:00 10/31/17 08:28 10/31/17 12:00 Temperature 97.9 F 98.0 F Pulse Rate 97 H 113 H 82 Respiratory Rate 17 14 17 Blood Pressure 114/62 143/68 H Pulse Oximetry 100 98 98 10/31/17 12:06 10/31/17 14:03 10/31/17 14:20 Temperature 98.0 F 98.2 F Pulse Rate 83 100 H 98 H Respiratory Rate 14 16 Blood Pressure 147/56 H 146/60 H Pulse Oximetry 99 99 Intake & Output 10/30/17 10/31/17 10/31/17 18:59 06:59 18:59 Intake Total 3810 / 3810 1240 / 1240 1000 / 1000 Output Total 800 / 800 800 / 800 Balance 3010 / 3010 440 / 440 1000 / 1000 Intake: IV 2850 / 2850 1000 / 1000 1000 / 1000 NS Inj 1,000 ML @ 70 mls/hr IV. 1000 / 1000 1000 / 1000 1000 / 1000 CONT .[id number] HELEN Rx#:[id number] NS Inj 250 ML @ 15 mls/hr IV. 250 / 250 SIG ONCE HELEN Rx#:[id number] Oral 960 / 960 240 / 240 Intake (Blood Product) Amt 0 / 0 Rbc As-3 Leukoreduced Unit 0 / 0 [id number] Output: Urine 800 / 800 800 / 800 Other: Date of Last Bowel Movement 10/29/17 10/30/17 - Constitutional no acute distress - Routine HEENT Exam Head: Present: normocephalic, atraumatic - Routine Respiratory Exam Absent: accessory muscle use - Routine Cardiovascular Exam Present: RRR - Routine Abdominal Exam Present: soft, normoactive bowel sounds. Absent: tenderness - Routine Skin Exam Present: pallor - Routine Neurological Exam Present: alert, oriented X3 <Jonelle Yee - Last Filed: 10/31/17 15:03> Vital signs: Vital Signs 10/31/17 00:00 10/31/17 01:31 10/31/17 03:56 Temperature 97.4 F L Pulse Rate 96 H 84 82 Respiratory Rate 18 16 Blood Pressure 124/59 L Pulse Oximetry 97 10/31/17 03:57 10/31/17 04:00 10/31/17 08:00 Temperature 98 F 97.9 F Pulse Rate 82 95 H 97 H Respiratory Rate 17 20 17 Blood Pressure 101/59 L 114/62 Pulse Oximetry 98 100 10/31/17 08:28 10/31/17 12:00 10/31/17 12:06 Temperature 98.0 F Pulse Rate 113 H 82 83 Respiratory Rate 14 17 14 Blood Pressure 143/68 H Pulse Oximetry 98 98 10/31/17 14:03 10/31/17 14:20 10/31/17 16:00 Temperature 98.0 F 98.2 F 97.6 F Pulse Rate 100 H 98 H 101 H Respiratory Rate 16 19 Blood Pressure 147/56 H 146/60 H 169/65 H Pulse Oximetry 99 99 100 10/31/17 16:31 10/31/17 17:02 10/31/17 17:13 Temperature 99.0 F Pulse Rate 80 79 Respiratory Rate 14 Blood Pressure 127/60 Pulse Oximetry 100 10/31/17 18:48 10/31/17 19:00 10/31/17 20:00 Temperature 98.7 F 98.4 F 97.6 F Pulse Rate 100 H 99 H 103 H Respiratory Rate 17 16 20 Blood Pressure 125/68 139/74 113/55 L Pulse Oximetry 99 100 Intake & Output 10/31/17 10/31/17 11/01/17 06:59 18:59 06:59 Intake Total 1240 / 1240 2354.6 / 2354.6 Output Total 800 / 800 1715 / 1715 Balance 440 / 440 639.6 / 639.6 Intake: IV 1000 / 1000 1051.6 / 1051.6 NS Inj 1,000 ML @ 70 mls/hr IV. 1000 / 1000 1000 / 1000 CONT .[id number] HELEN Rx#:[id number] Neupogen Inj 480 MCG In D5W Inj 51.6 / 51.6 50 ML @ 206.4 mls/hr IV.SIG DAILY@1400 [facility] Rx#:[id number] Oral 240 / 240 960 / 960 Intake (Blood Product) Amt 343 / 343 Rbc As-3 Leukoreduced Unit 0 / 0 [id number] Rbc As-3 Leukoreduced Unit 343 / 343 [id number] Output: Urine 800 / 800 1715 / 1715 Other: Date of Last Bowel Movement 10/30/17 # Bowel Movements 1 <Diann Church A - Last Filed: 10/31/17 22:02> Results - Labs CBC & Chem 7: 10/31/17 06:40 10/31/17 06:40 Labs: Laboratory Results - last 24 hr 10/31/17 10/31/17 10/31/17 06:40 06:40 11:22 WBC 1.2 L RBC 2.18 L Hgb 7.1 L Hct 20.8 L* MCV 95.4 MCH 32.7 MCHC 34.3 RDW 20.5 H D Plt Count 23 L MPV 7.9 Prelim Diff (Auto) Slide review pending Neut % (Auto) 66.2 Lymph % (Auto) 22.9 [place] % (Auto) 9.2 H Eos % (Auto) 1.3 Baso % (Auto) 0.4 Neut # (Auto) 0.8 L Lymph # (Auto) 0.3 L [place] # (Auto) 0.1 Eos # (Auto) 0.0 Baso # (Auto) 0.0 WBC Differential Manual diff final Seg Neuts % (Manual) 59 Band Neuts % (Manual) 3 Lymphocytes % (Manual) 27 Monocytes % (Manual) 5 Eosinophils % (Manual) 4 Basophils % (Manual) 1 Metamyelocytes % (Man) 1 Abs Neuts (Manual) 0.8 L Differential Comment . Platelet Estimate Low L Platelet Morphology Normal Sodium 138 Potassium 3.5 Chloride 102 Carbon Dioxide 23.8 Anion Gap 12 BUN 9 Creatinine 0.54 L Estimated GFR Greater than 89 Random Glucose 106 Calcium 8.7 Troponin I Crossmatch See Detail MTS Gel Crossmatch See Detail 10/31/17 11:33 WBC RBC Hgb Hct MCV MCH MCHC RDW Plt Count MPV Prelim Diff (Auto) Neut % (Auto) Lymph % (Auto) [place] % (Auto) Eos % (Auto) Baso % (Auto) Neut # (Auto) Lymph # (Auto) [place] # (Auto) Eos # (Auto) Baso # (Auto) WBC Differential Seg Neuts % (Manual) Band Neuts % (Manual) Lymphocytes % (Manual) Monocytes % (Manual) Eosinophils % (Manual) Basophils % (Manual) Metamyelocytes % (Man) Abs Neuts (Manual) Differential Comment Platelet Estimate Platelet Morphology Sodium Potassium Chloride Carbon Dioxide Anion Gap BUN Creatinine Estimated GFR Random Glucose Calcium Troponin I 1.45 H* Crossmatch MTS Gel Crossmatch <Jonelle Yee - Last Filed: 10/31/17 15:03> - Labs CBC & Chem 7: 10/31/17 06:40 10/31/17 06:40 Labs: Laboratory Results - last 24 hr 10/31/17 10/31/17 10/31/17 06:40 06:40 11:22 WBC 1.2 L RBC 2.18 L Hgb 7.1 L Hct 20.8 L* MCV 95.4 MCH 32.7 MCHC 34.3 RDW 20.5 H D Plt Count 23 L MPV 7.9 Prelim Diff (Auto) Slide review pending Neut % (Auto) 66.2 Lymph % (Auto) 22.9 [place] % (Auto) 9.2 H Eos % (Auto) 1.3 Baso % (Auto) 0.4 Neut # (Auto) 0.8 L Lymph # (Auto) 0.3 L [place] # (Auto) 0.1 Eos # (Auto) 0.0 Baso # (Auto) 0.0 WBC Differential Manual diff final Seg Neuts % (Manual) 59 Band Neuts % (Manual) 3 Lymphocytes % (Manual) 27 Monocytes % (Manual) 5 Eosinophils % (Manual) 4 Basophils % (Manual) 1 Metamyelocytes % (Man) 1 Abs Neuts (Manual) 0.8 L Differential Comment . Platelet Estimate Low L Platelet Morphology Normal Sodium 138 Potassium 3.5 Chloride 102 Carbon Dioxide 23.8 Anion Gap 12 BUN 9 Creatinine 0.54 L Estimated GFR Greater than 89 Random Glucose 106 Calcium 8.7 Troponin I Crossmatch See Detail MTS Gel Crossmatch See Detail 10/31/17 11:33 WBC RBC Hgb Hct MCV MCH MCHC RDW Plt Count MPV Prelim Diff (Auto) Neut % (Auto) Lymph % (Auto) [place] % (Auto) Eos % (Auto) Baso % (Auto) Neut # (Auto) Lymph # (Auto) [place] # (Auto) Eos # (Auto) Baso # (Auto) WBC Differential Seg Neuts % (Manual) Band Neuts % (Manual) Lymphocytes % (Manual) Monocytes % (Manual) Eosinophils % (Manual) Basophils % (Manual) Metamyelocytes % (Man) Abs Neuts (Manual) Differential Comment Platelet Estimate Platelet Morphology Sodium Potassium Chloride Carbon Dioxide Anion Gap BUN Creatinine Estimated GFR Random Glucose Calcium Troponin I 1.45 H* Crossmatch MTS Gel Crossmatch <Diann Church A - Last Filed: 10/31/17 22:02> Assessment and Plan - Plan Assessment: - Anemia with reports of black stools for the past two weeks- Hemoccult stool negative. Denies nausea, vomiting, abdominal pain. No history of GIB. EGD and colonoscopy in February 2017 by our service --> Irregular Z line, erythematous gastritis in the gastric antrum, normal duodenal mucosa, two medium sized sessile polyp in the rectum, internal hemorrhoids. 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 Church and this note is written on his behalf <Jonelle Yee - Last Filed: 10/31/17 15:03> - Attending Attestation Seen and examined, plan as above. Current unstable for any endoscopic intervention. Will follow up with you for further recommendations . Thank you for the consult. <Diann Church - Last Filed: 10/31/17 22:02>
[2017-11-01] MEDS: Pantoprazole Inj 40 MG Vial IV.PUSH SCH ×2 (04:09→16:46)
[2017-11-01] MEDS: Sod Chloride 0.9% Inj 1,000 ML IV.CONT SCH ×2 (04:09→10:18)
[2017-11-01] MEDS: chlordiazePOXIDE 25 MG Capsule PO SCH (08:29)
[2017-11-01] MEDS: Lisinopril 10 MG Tablet PO SCH ×2 (08:29→20:53)
[2017-11-01] MEDS: Metoprolol Tartrate 25 MG Tablet PO SCH ×2 (08:30→20:52)
[2017-11-01] MEDS: Senna/Docusate Sodium 8.6/50 MG Tablet PO SCH ×2 (08:30→20:53)
[2017-11-01 09:05] LABS: Baso % (Auto) 0.4 % (0.0-2.0); Eos % (Auto) 0.5 % (0.0-4.0); Hematocrit 28.1 % (39.0-51.0); Hemoglobin 9.8 gm/dL (13.0-17.0); Lymph # (Auto) 0.4 th/mm3 (1.0-4.8); Lymph % (Auto) 9.2 % (9.0-44.0); Mean Corpuscular HGB Conc 34.9 % (32.0-36.0); Mean Corpuscular Hemoglobin 32.5 pg (27.0-34.0); Mean Corpuscular Volume 93.1 fL (80.0-100.0); Mean Platelet Volume 7.9 fL (7.0-11.0); Mono # (Auto) 0.2 th/mm3 (0.0-0.9); Mono % (Auto) 4.6 % (0.0-8.0); Neut # (Auto) 3.5 th/mm3 (1.8-7.7); Neut % (Auto) 85.3 % (16.0-70.0); Red Blood Count 3.02 mil/mm3 (4.50-5.90); Red Cell Distribution Width 17.8 % (11.6-17.2); White Blood Count 4.1 th/mm3 (4.0-11.0)
--- NOTE | 2017-11-01 09:07 | P.PNIM ---
Subjective Interval history: Pt without any new complaints He is not ambulating much other than to the bedside commode Tolerating regular diet Physical Exam Vital signs: Vital Signs 10/31/17 12:00 10/31/17 12:06 10/31/17 14:03 Temperature 98.0 F 98.0 F Pulse Rate 82 83 100 H Respiratory Rate 17 14 Blood Pressure 143/68 H 147/56 H Pulse Oximetry 98 99 10/31/17 14:20 10/31/17 16:00 10/31/17 16:31 Temperature 98.2 F 97.6 F Pulse Rate 98 H 101 H 80 Respiratory Rate 16 19 14 Blood Pressure 146/60 H 169/65 H Pulse Oximetry 99 100 10/31/17 17:02 10/31/17 17:13 10/31/17 18:48 Temperature 99.0 F 98.7 F Pulse Rate 79 100 H Respiratory Rate 17 Blood Pressure 127/60 125/68 Pulse Oximetry 100 10/31/17 19:00 10/31/17 20:00 10/31/17 22:27 Temperature 98.4 F 97.6 F Pulse Rate 99 H 103 H 82 Respiratory Rate 16 20 16 Blood Pressure 139/74 113/55 L Pulse Oximetry 99 100 94 L 11/01/17 00:00 11/01/17 00:38 11/01/17 03:28 Temperature 97.4 F L Pulse Rate 91 H 84 94 H Respiratory Rate 20 18 Blood Pressure 131/78 Pulse Oximetry 99 11/01/17 04:00 11/01/17 08:40 Temperature 97.7 F Pulse Rate 93 H 89 Respiratory Rate 18 18 Blood Pressure 91/64 L Pulse Oximetry 98 97 Intake & Output 10/31/17 11/01/17 11/01/17 18:59 06:59 18:59 Intake Total 2354.6 / 2354.6 480 / 480 Output Total 1715 / 1715 1925 / 1925 Balance 639.6 / 639.6 -1445 / -1445 Intake: IV 1051.6 / 1051.6 NS Inj 1,000 ML @ 70 mls/hr IV. 1000 / 1000 CONT .[id number] KATIE Rx#:[id number] Neupogen Inj 480 MCG In D5W Inj 51.6 / 51.6 50 ML @ 206.4 mls/hr IV.SIG DAILY@1400 KATIE Rx#:[id number] Oral 960 / 960 480 / 480 Intake (Blood Product) Amt 343 / 343 0 / 0 Rbc As-3 Leukoreduced Unit 0 / 0 0 / 0 [id number] Rbc As-3 Leukoreduced Unit 343 / 343 [id number] Output: Urine 1715 / 1715 1925 / 1925 Other: Date of Last Bowel Movement 10/30/17 # Bowel Movements 1 Narrative: GENERAL: NAD, AAOx3 SKIN: Left axilla skin is raw with denuded skin and LUE/chest shoulder with radiation skin changes CARDIO: Regular RESP: No accessory muscle use. CTA bilaterally. ABD: +BS, soft, non-tender, nondistended. EXT: No LE edema edema. No obvious deformities. Results - Labs CBC & Chem 7: 11/04/17 04:36 11/04/17 04:36 Laboratory Results - last 24 hr 10/31/17 10/31/17 10/31/17 06:40 11:22 11:33 WBC Differential Manual diff final Seg Neuts % (Manual) 59 Band Neuts % (Manual) 3 Lymphocytes % (Manual) 27 Monocytes % (Manual) 5 Eosinophils % (Manual) 4 Basophils % (Manual) 1 Metamyelocytes % (Man) 1 Abs Neuts (Manual) 0.8 L Platelet Estimate Low L Platelet Morphology Normal Troponin I 1.45 H* Crossmatch See Detail MTS Gel Crossmatch See Detail Microbiology 10/31/17 10:19 Stool Stool Occult Blood ([facility]) - Final Hemoccult negative 10/29/17 12:33 Blood - Peripheral Aerobic Blood Culture - Preliminary No growth in 2 days 10/29/17 12:33 Blood - Peripheral Anaerobic Blood Culture - Preliminary No growth in 2 days 10/29/17 12:32 Blood - Peripheral Aerobic Blood Culture - Preliminary No growth in 2 days 10/29/17 12:32 Blood - Peripheral Anaerobic Blood Culture - Preliminary No growth in 2 days - Imaging Chest CTA 10/29/17 12:11 CONCLUSION: 1. No evidence of pulmonary embolism. 2. New subsegmental airspace disease in the right lower lobe characteristic of pneumonitis. 3. Decreasing size of left axillary mass. 4. No other significant change. Chest X-Ray 10/29/17 12:11 CONCLUSION: Negative for acute process. 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 Lindsey. Pt is also an alcoholic and has been drinking heavily the last 12 days, a quart of rum per day, due to some depression over his cancer diagnosis and the rigors of treatment. - He presented to the ED at [facility] on 10/29/17 with complaints of SOB and pt felt like he was starting to go into alcohol withdrawals. - His labs in the ED noted WBC count 1.9, Hgb 5.9/Hct 17.2, Platelet count 15, 000. - His pancytopenia felt to like be due to chemotherapy side effects. - Pt has been having loose black stools 1-2 times daily, small amounts, for the last week. - Pt s/p transfusion with 2 units PRBCs and 1 units of platelet on 10/29 - Repeat labs on 10/30 with Hgb 8.2/Hct 23.9, platelet count 30,000 - Repeat labs on 10/31 with decrease in Hgb to 7.1 - Protonix 40mg IV BID - Pt had recent outpt EGD/colonoscopy on 03/15/17 which revealed irregular Z- line, erythematous gastritis in the gastric antrum, 2 medium sized sessile polyps in the rectum, internal hemorrhoids - Stool for occult blood negative - Pt is on liquid diet currently - GI consultation requested but pt not felt to be stable enough for any GI procedures at this time. - Pt to be transfused with another 2 units PRBCs on 10/31 - Pt started on Neupogen on 10/31 - Repeat H/H is pending for today - Monitor labs closely - Supportive care - Chemical DVT prophylaxis is contraindicated with thrombocytopenia SOB, likely multifactorial COPD Possible pneumonitis on CTA - Pts SOB is likely multifactorial, related to his chronic COPD, acute on chronic anemia, and possible pneumonitis noted on imaging - Pulmonary CTA with no evidence of PE, new subsegmental airspace disease in the right lower lobe characteristic of pneumonitis, decreasing size of left axillary mass, otherwise no other significant change. - Pt is normally on 3L of supplemental O2 at home. - Cont. home meds, Breo Ellipta - Duonebs Q4H scheduled Elevated Troponin I - His troponin was elevated at 0.52 in the ED. - Troponin trended up to 1.12 --> 1.93 - Cardiology is following. - Ophiem to likely be demand mediated in the setting of his acute anemia. No ischemic changes on EKGs - Pt planned for continued medical management at this time, pt is on Lisinopril 10mg BID and Metoprolol 25mg po BID with parameters. - Pt felt to not be a candidate for antiplatelet or anticoagulant therapy at this time. - 2D echo ordered Alcohol abuse EtOH withdrawal - His last alcoholic beverage was the day prior to admission - CIWA protocol - Librium to be stopped today and pt to be resumed on his home dose of Lorazepam 1mg PO BID Stage IV metastatic SCC undergoing chemo and XRT Radiation dermatitis - Pt follows with Dr. Lindsey and Dr. Silveira for medical and radiation oncology - He has a rash in the left axilla which he reports is from radiation therapy and has reported some weeping from the wound. - Pt received Vancomycin and Cefepime in the ED and blood cultures were drawn prior to that. - Consult wound care, they were not available on the weekends unfortunately, but hopefully they will be able to evaluate the pt today. - Blood cultures with NGTD - Monitor for any fevers - Appreciate Oncology consultation - Palliative Care consult for goals of care (2) Alcohol withdrawal Code(s): F10.239 - Alcohol dependence with withdrawal, unspecified Status: Acute (3) Elevated troponin I level Code(s): R74.8 - Abnormal levels of other serum enzymes Status: Acute (4) Lymphoma Code(s): C85.90 - Non-Hodgkin lymphoma, unspecified, unspecified site Status: Acute (5) Pancytopenia Code(s): D61.818 - Other pancytopenia Status: Acute - Attending Attestation Patient examined. Assessment and plan formulated with Ana Norwood PA-C. I agree with the above. 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
[2017-11-01 09:29] LABS: Anion Gap 13 meq/L (5-15); Blood Urea Nitrogen 7 mg/dL (7-18); Calcium 8.6 mg/dL (8.5-10.1); Carbon Dioxide 26.4 meq/L (21.0-32.0); Chloride 99 meq/L (98-107); Glomerular Filtration Rate Greater Than 89 mL/min (>89); Glucose,Random 99 mg/dL (74-106); Potassium 3.2 meq/L (3.5-5.1); Sodium 138 meq/L (136-145)
[2017-11-01 09:41] LABS: Platelet Count 17 th/mm3 (150-450)
[2017-11-01 10:44] LABS: Platelet Morphology Normal (Normal)
[2017-11-01] MEDS ORDERED: Acetaminophen 325 MG Tablet PO PRN (11:52)
[2017-11-01] MEDS ORDERED: Sodium Chlor 0.9% Inj 250 ML IV.SIG SCH (12:00)
--- NOTE | 2017-11-01 13:12 | P.CONPAL ---
Consult Service: Palliative Care Requesting Physician: Zaheer Murcia Reason for Consult: a. To assist with evaluation and management of symptoms including: dyspnea, anxiety. b. To assist medical decision maker(s) with: better understanding of current medical conditions; weighing benefits/burdens of medical treatment options; making medical treatment decisions. Primary Care Provider: Ryley Rodgers MD History of Present Illness History of Present Illness: Mr. Calderon is a 72 year old male with past medical history of left upper extremity lymphedema, COPD, anxiety, alcohol dependence, Reaves's esophagus, peripheral arterial disease, GERD, hypertension, hyperlipidemia, hypothyroidism and history of skin cancer post resection and cancer of unknown primary. Patient is seen by Dr. 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 Patient had a large left supraclavicular mass and significant lymphedema of the left arm no evidence of metastatic disease to the abdomen. Left axillary mass was 12 cm and invading into the pectoralis muscle with 2 additional masses in the left posterior supraclavicular region. Patient was undergoing treatment including Taxol and carboplatin chemotherapy and radiation. He has not had chemotherapy in the past 2 weeks as he had been drinking significantly during this time. Patient admits to drinking approximately a quart of rum daily, indicates he started drinking early in the morning. He admits that he began drinking as he was feeling "sorry for himself" about his cancer diagnosis and his inability to do the things that he enjoys secondary to treatment related side effects. He denies any suicidal thoughts or ideations. Patient reports history of significant alcohol use in 2014 after the of his mother whom he reports he was very close to. He tells me he went through alcohol withdrawal during that time. Patient was admitted to [facility] emergency department on 10/29/17 when he called EMS for reports of shortness of breath, weakness. He indicated he had been drinking for the past 2 weeks because he was feeling depressed about his overall health condition including recent trajectory of decline, weakness, cancer diagnosis, inability to do the things that he enjoys secondary to chemo and radiation. He also reported feeling shaky, his last alcoholic beverage was the day prior to presentation. He reported diarrhea. He was also feeling pain at his left axillary radiation site, stating he had some foul smelling drainage noted in this area. Initial emergency room evaluation revealed: * Temp 99, pulse 100, respiratory rate 26, BP 170/85, oxygen saturation 100%. * WBC 1.9, hemoglobin 5.9, hematocrit 17.2, platelet count 15, neutrophils 76.3% * Sodium 139, potassium 4.6, chloride 104, carbon dioxide 22.8, BUN 27, creatinine 0.79, GFR 89, glucose 114 * Total bilirubin 0.8, AST 18, ALT 13, alkaline phosphatase 105 * Troponin 0.52 * BNP 51 * Total protein 6.3, albumin 2.8 * Alcohol less than 3 * Chest CTA-no evidence of pulmonary embolism, new subsegmental airspace disease in the right lower lobe characteristic of pneumonitis, decreasing size of left axillary mass, no other significant change. * Chest [id number] for acute process. * EKG-normal sinus rhythm, normal axis, nonspecific ST-T wave changes, heart rate 94. Patient was admitted with pancytopenia, alcohol withdrawal, elevated troponin, sepsis. Patient was started on vancomycin and cefepime in the ED blood cultures no growth in 3 days. Hemoccult negative. Medical oncology, Dr. Valdez was consulted and recommended continued supportive care, notes indicate that additional treatment discussions will be decided in the outpatient setting. Cardiology, Dr. Silverman was consulted for evaluation of possible NSTEMI, elevated troponin. Notes indicate patient is not a good candidate for invasive cardiac catheterization at this time due to severe anemia and thrombocytopenia, possible GI bleed. He indicates elevated troponin may be secondary to demand ischemia in the setting of severe anemia. Echocardiogram recommended. Wound care was consulted for evaluation of left axilla with recommendation to continue Silvadene cream to areas of radiation burn. Gastroenterology was consulted, no plans for GI procedures at this time given instability. Recommendation for transfusions per oncology recommendations as needed. Gastroenterology has signed off for now. Palliative care was consulted to assist with further clarification of medical treatment goals. Patient is seen and examined in room, no family present. Also present Darcie Epstein LCSW. Patient is awake and alert. He is open to conversations. He denies any suicidal ideations. He openly discusses frustrations related to his declining health. Patient elects NO CODE, will complete [place] DO NOT RESUSCITATE order prior to discharge in keeping with the patient's wishes. No agitation. Slight tremor noted. Patient understands further treatment discussions will be determined after discharge. Patient is not interested at this time in consideration of an antidepressant, will consider this more in the coming days. He reports that he is feeling better now. Welcomes palliative care visits. Palliative care will continue to follow to assist with symptom management clarification of treatment goals in the coming days. For now he desires continued aggressive care short of NO CODE. Function/Cognitive Trajectory: Increased weakness, fatigue, decreased appetite, increased sleep during the day , insomnia at night. Weight loss of 15 pounds in the past 2 weeks. Review of Systems All other systems reviewed negative except as stated in HPI (per HPI and functional history) Constitutional: Reports anorexia, Reports daytime sleepiness, Reports fatigue, Reports lack of energy, Reports weakness, Reports weight loss (15 pounds in 2 weeks. ) Eyes: Denies blind spots, Denies blurry vision, Denies bulging eyes, Denies change in vision, Denies double vision, Denies discharge, Denies dry eyes, Denies floaters, Denies irritation, Denies itchy eyes, Denies loss of vision, Denies pain, Denies requires corrective lenses, Denies sensitivity to light, Denies other Cardiovascular: Reports shortness of breath, Reports shortness of breath with activity, Reports shortness of breath when lying down Respiratory: Reports cough, Reports shortness of breath, Reports shortness of breath with activity Gastrointestinal: Reports loose stools Genitourinary: Denies blood in semen, Denies blood in urine, Denies decreased urination, Denies difficulty urinating, Denies difficulty with ejaculations, Denies erectile dysfunction, Denies genital lesions, Denies genital pain, Denies painful urination, Denies side pain, Denies frequent nighttime urination , Denies painful ejaculations, Denies penile discharge, Denies scrotal swelling , Denies testicle lump, Denies testicle pain, Denies urinary frequency, Denies urinary hesitancy, Denies urinary incontinence, Denies urinary urgency, Denies other Musculoskeletal: Reports numbness, Reports tingling Skin/Breast: Reports redness, Reports rash, Reports wounds (left axilla) Neurologic: Reports numbness, Reports tingling, Reports weakness Psychiatric: Reports abnormal sleep pattern, Reports anxiety, Reports change in appetite (decreased), Reports depression, Reports hopelessness, Reports lack of enjoyment, Reports panic attacks Hematologic/Lymphatic: Reports easy bruising PMFSH - History History Provided By: Patient, Medical Record - Medical History Medical History: Medical History (Last Reviewed 11/01/17 @ 17:12 by Luz North) Abnormal colonoscopy (Acute) Alcohol dependence Anxiety Barretts esophagus COPD (chronic obstructive pulmonary disease) GERD (gastroesophageal reflux disease) Hyperlipidemia Hypertension Hypothyroidism Lymphedema of left upper extremity Peripheral arterial disease Port-A-Cath in place Skin cancer Squamous cell carcinoma of unknown origin - Surgical History Surgical History: Surgical History (Last Updated 11/01/17 @ 17:13 by Luz North) Port-A-Cath in place (Acute) Abnormal colonoscopy H/O angioplasty History of hip replacement Status post bilateral total hip replacement - Family History Family History: Family History (Last Updated 11/01/17 @ 17:14 by Luz North) Mother Natural with unknown cause - Tobacco History Second Hand Smoke Exposure: No Tobacco Use In Past 30 Days: No Smoking Status: Current every day smoker Tobacco Type: Cigarettes - Alcohol History How Often Do You Have a Drink Containing Alcohol: 4 or more times a week (Was drinking approximately 1 quart of rum daily for the past 2 weeks) - Substance Use History Substance History: No History of Abuse - Travel History Recent Travel in the [place] Within the Last 8 Weeks: No Recent Travel Out of the Country Within the Last 8 Weeks: No - Immunization History Tetanus Immunization: >5 Years Hx Influenza Vaccine This Season: No Medications and Allergies Allergies Allergy/AdvReac Type Severity Reaction Status Date / Time No Known Allergies Allergy Unknown Uncoded 08/13/17 10:45 Home Medications Medication Instructions Recorded Confirmed Type albuterol sulfate [Ventolin HFA] 2 puff INHALATION Q4-6H PRN 10/29/17 10/29/17 History atorvastatin 20 mg PO DAILY 10/29/17 10/29/17 History fluticasone-vilanterol [Breo 1 inh INHALATION DAILY 10/29/17 10/29/17 History Ellipta] ipratropium-albuterol 3 ml INHALATION QID 10/29/17 10/29/17 History lisinopril 10 mg PO BID 10/29/17 10/29/17 History lorazepam 1 mg PO BID 10/29/17 10/29/17 History metoprolol tartrate 25 mg PO BID 10/29/17 10/29/17 History pantoprazole 40 mg PO DAILY 10/29/17 10/29/17 History Active Medications: Active Medications Acetaminophen (Tylenol) 650 mg PO Q4H PRN PRN Reason: Temp > 100.4 Acetaminophen (Tylenol) 650 mg PO Q4H PRN PRN Reason: SEE LABEL COMMENTS Albuterol (Duoneb Neb (Helen)) 1 ampul NEB Q4HR NEB [facility] Last Admin: 11/01/17 12:49 Dose: 1 ampul Atorvastatin Calcium (Lipitor) 20 mg PO DAILY [facility] Last Admin: 11/01/17 08:29 Dose: 20 mg Diphenhydramine HCl (Benadryl) 25 mg PO Q4H PRN PRN Reason: SEE LABEL COMMENTS Flumazenil (Romazecon Inj) 0.2 mg IV.PUSH Q1M PRN PRN Reason: OVERSEDATION Fluticasone/Vilanterol (Breo Ellipta 100/25 Mcg Inh) 1 puff INH DAILY [facility] Last Admin: 11/01/17 08:31 Dose: 1 puff Haloperidol Lactate (Haldol Inj) 1 mg IV.PUSH Q15M PRN PRN Reason: for severe agitation Vancomycin HCl 1,000 mg/ (Sodium Chloride) 250 mls @ 250 mls/hr IV.SIG SPRINKLER DRIVER [facility] Stop: 11/01/17 14:59 Sodium Chloride (Ns Inj) 1,000 mls @ 70 mls/hr IV.CONT .[id number] [facility] Last Admin: 11/01/17 10:18 Dose: 70 mls/hr Filgrastim 480 mcg/ Dextrose 51.6 mls @ 206.4 mls/hr IV.SIG DAILY@1400 [facility] Last Infusion: 10/31/17 18:16 Dose: Infused Sodium Chloride (Ns Inj) 250 mls @ 15 mls/hr IV.SIG ONCE [facility] Stop: 11/02/17 04:39 Lisinopril (Prinivil) 10 mg PO BID [facility] Last Admin: 11/01/17 08:29 Dose: 10 mg Lorazepam (Ativan) 1 mg PO Q4H PRN PRN Reason: for CIWA 8-10 Lorazepam (Ativan Inj) 2 mg IV.PUSH Q2H PRN PRN Reason: for CIWA 11-14 Lorazepam (Ativan Inj) 2 mg IV.PUSH Q1H PRN PRN Reason: for CIWA 15-20 Lorazepam (Ativan Inj) 2 mg IV.PUSH Q15M PRN PRN Reason: for CIWA > 20 Lorazepam (Ativan Inj) 1 mg IV.PUSH Q4H PRN PRN Reason: for CIWA 8-10 Lorazepam (Ativan) 2 mg PO Q2H PRN PRN Reason: for CIWA 11-14 Lorazepam (Ativan) 1 mg PO Q12HR [facility] Metoprolol Tartrate (Lopressor) 50 mg PO BID [facility] Last Admin: 11/01/17 08:30 Dose: 50 mg Ondansetron HCl (Zofran Odt) 4 mg PO Q6H PRN PRN Reason: NAUSEA OR VOMITING Pantoprazole Sodium (Protonix Inj) 40 mg IV.PUSH Q12H [facility] Last Admin: 11/01/17 04:09 Dose: 40 mg Senna/Docusate Sodium (Merced-Colace) 1 tab PO BID [facility] Last Admin: 11/01/17 08:30 Dose: Not Given Silver Sulfadiazine (Silvadene 1% Cream (50 Gm)) 1 applicatio TOPICAL DAILY [facility] Last Admin: 11/01/17 08:29 Dose: 1 applicatio Advance Directives Living Will: No Healthcare Surrogate: No (Health Care Proxy: , Roma Calderon) Power of Security Installation Technician: No Documented care wishes: Mr. Calderon has never completed written advance directives. Today's verbally stated goals: Patient verbalizes he wishes for his , Roma Calderon, to serve as his medical decision maker should he be unable to make his own medical decisions. States he had conversations with her and she knows his wishes. Declines completing living will and health care surrogate paperwork. Elects NO CODE status. Receptive to completing [facility] DNR Order. Palliative care will follow-up to assist with this. Family/friends goals: No family contact today. Ethical and Legal Issues: No known ethical or legal issues. Physical Exam Vital Signs: Vital Signs - 24 hr 10/31/17 14:03 10/31/17 14:20 10/31/17 16:00 Temperature 98.0 F 98.2 F 97.6 F Pulse Rate 100 H 98 H 101 H Respiratory Rate 16 19 Blood Pressure 147/56 H 146/60 H 169/65 H Pulse Oximetry 99 99 100 10/31/17 16:31 10/31/17 17:02 10/31/17 17:13 Temperature 99.0 F Pulse Rate 80 79 Respiratory Rate 14 Blood Pressure 127/60 Pulse Oximetry 100 10/31/17 18:48 10/31/17 19:00 10/31/17 20:00 Temperature 98.7 F 98.4 F 97.6 F Pulse Rate 100 H 99 H 103 H Respiratory Rate 17 16 20 Blood Pressure 125/68 139/74 113/55 L Pulse Oximetry 99 100 10/31/17 22:27 11/01/17 00:00 11/01/17 00:38 Temperature 97.4 F L Pulse Rate 82 91 H 84 Respiratory Rate 16 20 Blood Pressure 131/78 Pulse Oximetry 94 L 99 11/01/17 03:28 11/01/17 04:00 11/01/17 08:40 Temperature 97.7 F Pulse Rate 94 H 93 H 89 Respiratory Rate 18 18 18 Blood Pressure 91/64 L Pulse Oximetry 98 97 11/01/17 12:00 11/01/17 12:51 Temperature 97.6 F Pulse Rate 89 87 Respiratory Rate 18 18 Blood Pressure 134/82 Pulse Oximetry 95 I&O: Intake & Output 10/30/17 10/31/17 11/01/17 11/02/17 06:59 06:59 06:59 06:59 Intake Total 640 / 640 5050 / 5050 2834.6 / 2834.6 1000 / 1000 Output Total 450 / 450 1600 / 1600 3640 / 3640 Balance 190 / 190 3450 / 3450 -805.4 / -805.4 1000 / 1000 Weight 72.575 kg Physical Exam: CONSTITUTIONAL/GENERAL: This is an adequately nourished patient, in no apparent distress. TUBES/LINES/DRAINS: Oxygen via nasal cannula, PIV SKIN: No jaundice, rashes, or lesions. Ecchymoses on upper extremities. Left axillary wound with erythema, dry skin. Skin temperature appropriate. Not diaphoretic. HEAD: Atraumatic. Normocephalic. EYES: Pupils equal and round and reactive. ENT: Hearing grossly normal. Nose without bleeding or purulent drainage. Throat without visible erythema, exudates, masses, or lesions. NECK: Trachea midline. CARDIOVASCULAR: Regular rate and rhythm without murmurs, gallops, or rubs. No JVD. Peripheral pulses symmetric. RESPIRATORY/CHEST: Symmetric, unlabored respirations. Clear to auscultation. Expiratory wheeze noted on left. GASTROINTESTINAL: Abdomen soft, non-tender, nondistended. No guarding. Bowel sounds present. GENITOURINARY: Without palpable bladder distension. Esqueda catheter in place. MUSCULOSKELETAL: Extremities without clubbing, cyanosis, or edema. No joint tenderness or effusion noted. No calf tenderness. No mottling or clubbing. LYMPHATICS: Not examined. NEUROLOGICAL: Awake and alert. Motor and sensory grossly within normal limits. Follows commands. Cognitively sharp. Moves all extremities. PSYCHIATRIC: Self-reports anxiety and recent depression. No suicidal thoughts or ideations. Pleasant. Open to conversation. Diagnostic Tests Laboratory: Laboratory Results - last 72 hr 10/29/17 10/29/17 10/29/17 12:32 12:32 12:32 WBC 1.9 L RBC 1.70 L Hgb 5.9 L* Hct 17.2 L* MCV 100.9 H MCH 34.4 H MCHC 34.1 RDW 24.9 H Plt Count 15 L* MPV 8.0 Prelim Diff (Auto) Slide review pending Neut % (Auto) 76.3 H Lymph % (Auto) 12.3 Villalba % (Auto) 11.2 H Eos % (Auto) 0.1 Baso % (Auto) 0.1 Neut # (Auto) 1.5 L Lymph # (Auto) 0.2 L [place] # (Auto) 0.2 Eos # (Auto) 0.0 Baso # (Auto) 0.0 WBC Differential Manual diff final Diff Scan Seg Neuts % (Manual) 68 Band Neuts % (Manual) 14 H Lymphocytes % (Manual) 11 Monocytes % (Manual) 7 Eosinophils % (Manual) Basophils % (Manual) Metamyelocytes % (Man) Abs Neuts (Manual) 1.6 L Nucleated RBCs/100 WBC Differential Comment . Toxic Granulation 2+ H Platelet Estimate Rare L Platelet Morphology Normal Sodium 139 Potassium 4.6 Chloride 104 Carbon Dioxide 22.8 Anion Gap 12 BUN 27 H Creatinine 0.79 Estimated GFR Greater than 89 Random Glucose 114 H Lactic Acid Calcium 9.0 Total Bilirubin 0.8 AST 18 ALT 13 Alkaline Phosphatase 105 Total Creatine Kinase Troponin I 0.52 H B-Natriuretic Peptide 51 Total Protein 6.3 L Albumin 2.8 L Urine Color Urine Clarity Urine pH Ur Specific Mart[place] Urine Protein Urine Glucose (UA) Urine Ketones Urine Occult Blood Urine Nitrate Urine Bilirubin Urine Urobilinogen Ur Leukocyte Esterase Urine Mucus Micro UA Comment Urine Culture Comments Serum Alcohol Less than 3 Blood Type Antibody Screen Ab Screen Tube Method Antibody Identification Crossmatch MTS Gel Crossmatch Bld Prod Order Comment 10/29/17 10/29/17 10/29/17 13:10 13:38 13:38 WBC RBC Hgb Hct MCV MCH MCHC RDW Plt Count MPV Prelim Diff (Auto) Neut % (Auto) Lymph % (Auto) [place]ba % (Auto) Eos % (Auto) Baso % (Auto) Neut # (Auto) Lymph # (Auto) [place] # (Auto) Eos # (Auto) Baso # (Auto) WBC Differential Diff Scan Seg Neuts % (Manual) Band Neuts % (Manual) Lymphocytes % (Manual) Monocytes % (Manual) Eosinophils % (Manual) Basophils % (Manual) Metamyelocytes % (Man) Abs Neuts (Manual) Nucleated RBCs/100 WBC Differential Comment Toxic Granulation Platelet Estimate Platelet Morphology Sodium Potassium Chloride Carbon Dioxide Anion Gap BUN Creatinine Estimated GFR Random Glucose Lactic Acid 1.5 Calcium Total Bilirubin AST ALT Alkaline Phosphatase Total Creatine Kinase Troponin I B-Natriuretic Peptide Total Protein Albumin Urine Color Urine Clarity Urine pH Ur Specific [place] Urine Protein Urine Glucose (UA) Urine Ketones Urine Occult Blood Urine Nitrate Urine Bilirubin Urine Urobilinogen Ur Leukocyte Esterase Urine Mucus Micro UA Comment Urine Culture Comments Serum Alcohol Blood Type A Negative Antibody Screen Positive H Ab Screen Tube Method Negative Antibody Identification Non-Specific Agglutinin Crossmatch See Detail MTS Gel Crossmatch See Detail Bld Prod Order Comment 10/29/17 10/29/17 10/30/17 15:00 22:37 04:10 WBC RBC Hgb Hct MCV MCH MCHC RDW Plt Count MPV Prelim Diff (Auto) Neut % (Auto) Lymph % (Auto) [place] % (Auto) Eos % (Auto) Baso % (Auto) Neut # (Auto) Lymph # (Auto) [place] # (Auto) Eos # (Auto) Baso # (Auto) WBC Differential Diff Scan Seg Neuts % (Manual) Band Neuts % (Manual) Lymphocytes % (Manual) Monocytes % (Manual) Eosinophils % (Manual) Basophils % (Manual) Metamyelocytes % (Man) Abs Neuts (Manual) Nucleated RBCs/100 WBC Differential Comment Toxic Granulation Platelet Estimate Platelet Morphology Sodium 139 Potassium 3.9 Chloride 105 Carbon Dioxide 21.2 Anion Gap 13 BUN 18 Creatinine 0.60 Estimated GFR Greater than 89 Random Glucose 102 Lactic Acid Calcium 8.6 Total Bilirubin 1.2 H AST 22 ALT 12 Alkaline Phosphatase 87 Total Creatine Kinase 110 130 Troponin I 1.12 H* 1.93 H* B-Natriuretic Peptide Total Protein 5.6 L D Albumin 2.5 L Urine Color Yellow Urine Clarity Clear Urine pH 5.0 Ur Specific [place] 1.016 Urine Protein Negative Urine Glucose (UA) Negative Urine Ketones 20 Urine Occult Blood Negative Urine Nitrate Negative Urine Bilirubin Negative Urine Urobilinogen Less than 2 Ur Leukocyte Esterase Negative Urine Mucus Few H Micro UA Comment Culture not ind Urine Culture Comments Culture not ind Serum Alcohol Blood Type Antibody Screen Ab Screen Tube Method Antibody Identification Crossmatch MTS Gel Crossmatch Bld Prod Order Comment 10/30/17 10/31/17 10/31/17 04:10 06:40 06:40 WBC 1.8 L 1.2 L RBC 2.49 L 2.18 L Hgb 8.2 L D 7.1 L Hct 23.9 L 20.8 L* MCV 96.0 D 95.4 MCH 32.9 32.7 MCHC 34.3 34.3 RDW 23.0 H 20.5 H D Plt Count 30 L D 23 L MPV 6.9 L 7.9 Prelim Diff (Auto) Slide review pending Slide review pending Neut % (Auto) 72.1 H 66.2 Lymph % (Auto) 17.6 22.9 Villalba % (Auto) 9.0 H 9.2 H Eos % (Auto) 1.0 1.3 Baso % (Auto) 0.3 0.4 Neut # (Auto) 1.3 L 0.8 L Lymph # (Auto) 0.3 L 0.3 L Vill[place]ba # (Auto) 0.2 0.1 Eos # (Auto) 0.0 0.0 Baso # (Auto) 0.0 0.0 WBC Differential Manual diff final Manual diff final Diff Scan Seg Neuts % (Manual) 70 59 Band Neuts % (Manual) 6 3 Lymphocytes % (Manual) 18 27 Monocytes % (Manual) 3 5 Eosinophils % (Manual) 1 4 Basophils % (Manual) 1 1 Metamyelocytes % (Man) 1 1 Abs Neuts (Manual) 1.4 L 0.8 L Nucleated RBCs/100 WBC 1 H Differential Comment . . Toxic Granulation Platelet Estimate Low L Low L Platelet Morphology Normal Normal Sodium 138 Potassium 3.5 Chloride 102 Carbon Dioxide 23.8 Anion Gap 12 BUN 9 Creatinine 0.54 L Estimated GFR Greater than 89 Random Glucose 106 Lactic Acid Calcium 8.7 Total Bilirubin AST ALT Alkaline Phosphatase Total Creatine Kinase Troponin I B-Natriuretic Peptide Total Protein Albumin Urine Color Urine Clarity Urine pH Ur Specific [place] Urine Protein Urine Glucose (UA) Urine Ketones Urine Occult Blood Urine Nitrate Urine Bilirubin Urine Urobilinogen Ur Leukocyte Esterase Urine Mucus Micro UA Comment Urine Culture Comments Serum Alcohol Blood Type Antibody Screen Ab Screen Tube Method Antibody Identification Crossmatch MTS Gel Crossmatch Bld Prod Order Comment 10/31/17 10/31/17 11/01/17 11:22 11:33 06:44 WBC 4.1 RBC 3.02 L Hgb 9.8 L D Hct 28.1 L MCV 93.1 MCH 32.5 MCHC 34.9 RDW 17.8 H D Plt Count 17 L* MPV 7.9 Prelim Diff (Auto) Slide review pending Neut % (Auto) 85.3 H Lymph % (Auto) 9.2 Villalba % (Auto) 4.6 Eos % (Auto) 0.5 Baso % (Auto) 0.4 Neut # (Auto) 3.5 Lymph # (Auto) 0.4 L Vill[place] # (Auto) 0.2 Eos # (Auto) 0.0 Baso # (Auto) 0.0 WBC Differential . Diff Scan Auto diff confirmed Seg Neuts % (Manual) Band Neuts % (Manual) Lymphocytes % (Manual) Monocytes % (Manual) Eosinophils % (Manual) Basophils % (Manual) Metamyelocytes % (Man) Abs Neuts (Manual) Nucleated RBCs/100 WBC Differential Comment . Toxic Granulation Platelet Estimate Low L Platelet Morphology Normal Sodium Potassium Chloride Carbon Dioxide Anion Gap BUN Creatinine Estimated GFR Random Glucose Lactic Acid Calcium Total Bilirubin AST ALT Alkaline Phosphatase Total Creatine Kinase Troponin I 1.45 H* B-Natriuretic Peptide Total Protein Albumin Urine Color Urine Clarity Urine pH Ur Specific [place] Urine Protein Urine Glucose (UA) Urine Ketones Urine Occult Blood Urine Nitrate Urine Bilirubin Urine Urobilinogen Ur Leukocyte Esterase Urine Mucus Micro UA Comment Urine Culture Comments Serum Alcohol Blood Type Antibody Screen Ab Screen Tube Method Antibody Identification Crossmatch See Detail MTS Gel Crossmatch See Detail Bld Prod Order Comment 11/01/17 11/01/17 06:44 11:21 WBC RBC Hgb Hct MCV MCH MCHC RDW Plt Count MPV Prelim Diff (Auto) Neut % (Auto) Lymph % (Auto) Vill[place] % (Auto) Eos % (Auto) Baso % (Auto) Neut # (Auto) Lymph # (Auto) Vill[place] # (Auto) Eos # (Auto) Baso # (Auto) WBC Differential Diff Scan Seg Neuts % (Manual) Band Neuts % (Manual) Lymphocytes % (Manual) Monocytes % (Manual) Eosinophils % (Manual) Basophils % (Manual) Metamyelocytes % (Man) Abs Neuts (Manual) Nucleated RBCs/100 WBC Differential Comment Toxic Granulation Platelet Estimate Platelet Morphology Sodium 138 Potassium 3.2 L Chloride 99 Carbon Dioxide 26.4 Anion Gap 13 BUN 7 Creatinine 0.63 Estimated GFR Greater than 89 Random Glucose 99 Lactic Acid Calcium 8.6 Total Bilirubin AST ALT Alkaline Phosphatase Total Creatine Kinase Troponin I B-Natriuretic Peptide Total Protein Albumin Urine Color Urine Clarity Urine pH Ur Specific [place] Urine Protein Urine Glucose (UA) Urine Ketones Urine Occult Blood Urine Nitrate Urine Bilirubin Urine Urobilinogen Ur Leukocyte Esterase Urine Mucus Micro UA Comment Urine Culture Comments Serum Alcohol Blood Type Antibody Screen Ab Screen Tube Method Antibody Identification Crossmatch MTS Gel Crossmatch Bld Prod Order Comment Result Diagrams: 11/01/17 06:44 11/01/17 06:44 Microbiology: Microbiology 10/29/17 12:33 Aerobic Blood Culture - Preliminary Blood - Peripheral No growth in 3 days Anaerobic Blood Culture - Preliminary No growth in 3 days 10/29/17 12:32 Aerobic Blood Culture - Preliminary Blood - Peripheral No growth in 3 days Anaerobic Blood Culture - Preliminary No growth in 3 days 10/31/17 10:19 Stool Occult Blood (PEDRO) - Final Stool Hemoccult negative Imaging: Chest CTA 10/29/17 12:11 CONCLUSION: 1. No evidence of pulmonary embolism. 2. New subsegmental airspace disease in the right lower lobe characteristic of pneumonitis. 3. Decreasing size of left axillary mass. 4. No other significant change. Chest X-Ray 10/29/17 12:11 CONCLUSION: Negative for acute process. Patient/Family Conference Present at Family Conference: Met with patient at bedside. Also present Darcie Epstein LCSW. Family Conference Time: 75 Family Conference Location: Bedside Issues Discussed: * Palliative care role, purpose, approach * Additional medical, psychosocial, and spiritual history * Patients general health, functional status, and cognitive changes in the months leading up to the current hospitalization * Patient/family understanding of the current medical problems * Patient/family understanding of prognosis * Patients goals of care as best understood from advance directives and/or conversations and/or values * Current medical treatment options and benefits/burdens of those options * Likely scenarios comparing ongoing aggressive care with a transition to comfort measures only * Questions answered to the best of my ability * Palliative care contact information provided Assessment and Plan Pertinent Non-Medical Issues: Psychosocial: Originally from [place]oved [place]. x2. Currently marriage to Roma of 22 years. 1 son from previous marriage although has not seen him since he was 7 years old. 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 No . Enjoys anything to do with sports and used to enjoy fishing when he was in better health. Spiritual: Taoism. Legal: No known legal issues known at this time. Ethical issues impacting care: No known ethical issues known at this time. Important Contacts: Roma Calderon, /HCP: [phone] Prognosis: Mr. 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 He has been undergoing chemotherapy and radiation. He stops treatment secondary to acute alcohol use over the past 2 weeks. He remains high risk for further setbacks and declined especially if he is unable to quit drinking upon discharge. It is unlikely that he will complete any additional chemotherapy if alcohol cessation is not possible. Code Status: No Code DNR Plan: * Decision Maker: Patient is capacitated to make his own healthcare decisions at this time. No written advanced directives. According to [place] statutes, healthcare proxy decision making would fall to his spouse, Roma Sanchez which would be in keeping with the patient's wishes. * NO CODE -will complete [place] DO NOT RESUSCITATE order prior to discharge per patient's wishes. * Palliative care met with patient: For now the patient desires continued aggressive care short of NO CODE. Open to continue to conversations. He declines medication for depression at this time. Palliative care will continue to follow. * SYMPTOMS: Anxiety: Likely complicated due to COPD, pneumonitis, shortness of breath. Currently controlled with as needed lorazepam per patient's report. We will continue to monitor. Dyspnea: Secondary to cancer, COPD. On oxygen. Continue as needed nebulizer, Lorazepam. Will continue to monitor. * Palliative care number provided. * Palliative care will continue to follow throughout hospital course to assist with symptom management and clarification of goals as needed. Appreciation Thank you for the opportunity to participate in the care of Tee Calderon. Attestation Attestation: To help prompt me to consider important information that might be impacting today's encounter and assessment, information from prior notes written by myself or my colleagues may have been "brought forward" into today's note. My signature on this note, however, is an attestation that I personally performed the exam, history, and/or decision-making noted today, and, unless otherwise indicated, the interactions with patient, family, and staff as well as the review of records all occurred today. I also attest that the listed assessment and stated plan reflect my best clinical judgment today based on the combination of historical information, prior notes, and today's exam/ interactions. When time spent is documented, it refers only to time spent today by the signer, or if indicated, combined time spent today by collaborating physician/nurse practitioner.
--- NOTE | 2017-11-01 14:41 | P.PNONC ---
Subjective Interval history: Afebrile, lying in bed visiting with his . Patient denies any chest pains, shortness of breath or obvious bleeding. He reports he would like to advance his diet, as he has been on clear liquids. Objective Vital Signs/Intake & Output: Vital Signs 10/31/17 14:20 10/31/17 16:00 10/31/17 16:31 Temperature 98.2 F 97.6 F Pulse Rate 98 H 101 H 80 Respiratory Rate 16 19 14 Blood Pressure 146/60 H 169/65 H Pulse Oximetry 99 100 10/31/17 17:02 10/31/17 17:13 10/31/17 18:48 Temperature 99.0 F 98.7 F Pulse Rate 79 100 H Respiratory Rate 17 Blood Pressure 127/60 125/68 Pulse Oximetry 100 10/31/17 19:00 10/31/17 20:00 10/31/17 22:27 Temperature 98.4 F 97.6 F Pulse Rate 99 H 103 H 82 Respiratory Rate 16 20 16 Blood Pressure 139/74 113/55 L Pulse Oximetry 99 100 94 L 11/01/17 00:00 11/01/17 00:38 11/01/17 03:28 Temperature 97.4 F L Pulse Rate 91 H 84 94 H Respiratory Rate 20 18 Blood Pressure 131/78 Pulse Oximetry 99 11/01/17 04:00 11/01/17 08:40 11/01/17 12:00 Temperature 97.7 F 97.6 F Pulse Rate 93 H 89 89 Respiratory Rate 18 18 18 Blood Pressure 91/64 L 134/82 Pulse Oximetry 98 97 95 11/01/17 12:51 Temperature Pulse Rate 87 Respiratory Rate 18 Blood Pressure Pulse Oximetry Intake & Output 10/31/17 11/01/17 11/01/17 18:59 06:59 18:59 Intake Total 2354.6 / 2354.6 480 / 480 1000 / 1000 Output Total 1715 / 1715 1925 / 1925 Balance 639.6 / 639.6 -1445 / -1445 1000 / 1000 Intake: IV 1051.6 / 1051.6 1000 / 1000 NS Inj 1,000 ML @ 70 mls/hr IV. 1000 / 1000 1000 / 1000 CONT .[id number] [facility] Rx#:[id number] Neupogen Inj 480 MCG In D5W Inj 51.6 / 51.6 50 ML @ 206.4 mls/hr IV.SIG DAILY@1400 [facility] Rx#:[id number] Oral 960 / 960 480 / 480 Intake (Blood Product) Amt 343 / 343 0 / 0 Rbc As-3 Leukoreduced Unit 0 / 0 0 / 0 [id number] Rbc As-3 Leukoreduced Unit 343 / 343 [id number] Output: Urine 1715 / 1715 1925 / 1925 Other: Date of Last Bowel Movement 10/30/17 10/31/17 # Bowel Movements 1 Result Diagrams: 11/01/17 06:44 11/01/17 06:44 Laboratory Results: Laboratory Results - last 24 hr 10/31/17 11/01/17 11/01/17 11:22 06:44 06:44 WBC 4.1 RBC 3.02 L Hgb 9.8 L D Hct 28.1 L MCV 93.1 MCH 32.5 MCHC 34.9 RDW 17.8 H D Plt Count 17 L* MPV 7.9 Prelim Diff (Auto) Slide review pending Neut % (Auto) 85.3 H Lymph % (Auto) 9.2 [place] % (Auto) 4.6 Eos % (Auto) 0.5 Baso % (Auto) 0.4 Neut # (Auto) 3.5 Lymph # (Auto) 0.4 L [place] # (Auto) 0.2 Eos # (Auto) 0.0 Baso # (Auto) 0.0 WBC Differential . Diff Scan Auto diff confirmed Differential Comment . Platelet Estimate Low L Platelet Morphology Normal Sodium 138 Potassium 3.2 L Chloride 99 Carbon Dioxide 26.4 Anion Gap 13 BUN 7 Creatinine 0.63 Estimated GFR Greater than 89 Random Glucose 99 Calcium 8.6 Crossmatch See Detail MTS Gel Crossmatch See Detail Bld Prod Order Comment 11/01/17 11:21 WBC RBC Hgb Hct MCV MCH MCHC RDW Plt Count MPV Prelim Diff (Auto) Neut % (Auto) Lymph % (Auto) [place] % (Auto) Eos % (Auto) Baso % (Auto) Neut # (Auto) Lymph # (Auto) [place] # (Auto) Eos # (Auto) Baso # (Auto) WBC Differential Diff Scan Differential Comment Platelet Estimate Platelet Morphology Sodium Potassium Chloride Carbon Dioxide Anion Gap BUN Creatinine Estimated GFR Random Glucose Calcium Crossmatch MTS Gel Crossmatch Bld Prod Order Comment Culture Results: Microbiology 10/29/17 12:33 Aerobic Blood Culture - Preliminary Blood - Peripheral No growth in 3 days Anaerobic Blood Culture - Preliminary No growth in 3 days 10/29/17 12:32 Aerobic Blood Culture - Preliminary Blood - Peripheral No growth in 3 days Anaerobic Blood Culture - Preliminary No growth in 3 days 10/31/17 10:19 Stool Occult Blood (PEDRO) - Final Stool Hemoccult negative Medications: Active Medications Generic Name Dose Route Start Last Admin Trade Name Freq PRN Reason Stop Dose Admin Acetaminophen 650 mg 11/01/17 11:52 11/01/17 13:17 Tylenol PO 650 mg Q4H PRN Administration SEE LABEL COMMENTS Albuterol 1 ampul 10/29/17 16:00 11/01/17 12:49 Duoneb Neb (Helen) NEB 1 ampul Q4HR NEB HELEN Administration Atorvastatin Calcium 20 mg 10/30/17 09:00 11/01/17 08:29 Lipitor PO 20 mg DAILY HELEN Administration Diphenhydramine HCl 25 mg 11/01/17 11:52 11/01/17 13:16 Benadryl PO 25 mg Q4H PRN Administration SEE LABEL COMMENTS Fluticasone/Vilanterol 1 puff 10/30/17 09:00 11/01/17 08:31 Breo Ellipta 100/25 Mcg Inh INH 1 puff DAILY HELEN Administration Sodium Chloride 1,000 mls @ 70 mls/hr 10/29/17 16:00 11/01/17 10:18 Ns Inj IV.CONT 70 mls/hr .[id number] HELEN Administration Filgrastim 480 mcg/ Dextrose 51.6 mls @ 206.4 mls/hr 10/31/17 17:00 10/31/17 18:16 IV.SIG Infused DAILY@1400 HELEN Infusion Lisinopril 10 mg 10/29/17 21:00 11/01/17 08:29 Prinivil PO 10 mg BID HELEN Administration Metoprolol Tartrate 50 mg 10/31/17 09:54 11/01/17 08:30 Lopressor PO 50 mg BID HELEN Administration Pantoprazole Sodium 40 mg 10/29/17 16:00 11/01/17 04:09 Protonix Inj IV.PUSH 40 mg Q12H HELEN Administration Senna/Docusate Sodium 1 tab 10/29/17 21:00 11/01/17 08:30 Merced-Colace PO Not Given BID HELEN Silver Sulfadiazine 1 applicatio 10/30/17 09:00 11/01/17 08:29 Silvadene 1% Cream (50 Gm) TOPICAL 1 applicatio DAILY HELEN Administration Objective Remarks: GENERAL: Older male patient, resting in bed, in no acute distress.. SKIN: Warm and dry. Excoriated skin to left axilla. HEAD: Normocephalic. EYES: No scleral icterus. No injection or drainage. PEARLA. NECK: Supple, trachea midline. No JVD or lymphadenopathy. CARDIOVASCULAR: Regular rate and rhythm. RESPIRATORY: Anterior lung sounds coarse, equal bilaterally. On O2 via nasal cannula. GASTROINTESTINAL: Abdomen soft, non-tender, nondistended. EXTREMITIES: No cyanosis, or edema. MUSCULOSKELETAL: Generalized weakness NEUROLOGICAL: No obvious focal deficit. Awake, alert, and oriented x3. Assessment/Plan (1) Anemia Code(s): D64.9 - Anemia, unspecified Status: Acute (2) Thrombocytopenia Code(s): D69.6 - Thrombocytopenia, unspecified Status: Acute (3) Metastatic squamous cell carcinoma Code(s): C79.9 - Secondary malignant neoplasm of unspecified site Status: Chronic - Plan Patient has a diagnosis of stage IV poorly differentiated squamous cell cancer who presents to the ER with progressive shortness of breath. He was originally diagnosed in July 2017. Primary either from lung versus skin suspected. He has a very large supraclavicular mass on the left arm. He is currently being treated with carboplatin and Taxol on an outpatient basis with his last treatment being approximately 2 weeks ago. Unfortunately he has been coping with his diagnosis via alcohol. He reports drinking a quart of rum per day. He also mentions he has had frequent loose dark stools. He was noted to have severe anemia on admission with a hemoglobin of 5.9. 1. Neutropenia, improving. Continues to be on neutropenic precautions. He did receive G-CSF support after his last cycle of chemotherapy 5 days, however since his counts continued to worsen, he was started on Neupogen at 480 mcg's yesterday. 2. GI has been consulted and will defer invasive workup until patient more stable. 3. Status post 2 units PRBCs yesterday, hemoglobin 9.1 today. We will continue to monitor. 4. Thrombocytopenia, platelet count 17,000 today. We will transfuse 1 unit of platelets. We will continue to monitor. 5. Monitor CBC. Supportive care. 6. Left axilla ulceration, status post radiation therapy. Wound care has been consulted and is managing. (1) Anemia Qualifiers: Anemia type: unspecified type Qualified Code(s): D64.9 - Anemia, unspecified
--- NOTE | 2017-11-01 15:00 | P.PNWCN ---
Wound Care Nurse Consult Description: Consult for left axilla per ARIELLE Norwood Communicated with: RAMSES Sanchez Patient Recommendation: Continue with Silvadene as ordered Additional information: Patient seen on [facility] for left axilla radiation lazo Wound/Pressure Injury - Wound Left Axilla Wound Type: Burn (Radiation) Is This a Chronic Wound: Yes Requested from Provider a Wound Care Consult: Yes Wound Bed Appearance: [place], Red, Shiny, Yellow Surrounding Tissue Appearance: Bright Red (peeling, scaly), Erythema Drainage Amount: None Dressing Status: Open to Air Topical: Silvadene
--- NOTE | 2017-11-01 15:09 | P.PNGI ---
Subjective Interval history: Pts last BM was yesterday afternoon, states BM was black. Denies nausea, vomiting, abdominal pain. Platelets dropped more today, transfusion ordered by oncology. Awaiting palliative consult to assist in determining treatment goals. <Jonelle Yee - Last Filed: 11/01/17 15:06> Physical Exam Vital signs: Vital Signs 10/31/17 16:00 10/31/17 16:31 10/31/17 17:02 Temperature 97.6 F 99.0 F Pulse Rate 101 H 80 79 Respiratory Rate 19 14 Blood Pressure 169/65 H 127/60 Pulse Oximetry 100 10/31/17 17:13 10/31/17 18:48 10/31/17 19:00 Temperature 98.7 F 98.4 F Pulse Rate 100 H 99 H Respiratory Rate 17 16 Blood Pressure 125/68 139/74 Pulse Oximetry 100 99 10/31/17 20:00 10/31/17 22:27 11/01/17 00:00 Temperature 97.6 F 97.4 F L Pulse Rate 103 H 82 91 H Respiratory Rate 20 16 20 Blood Pressure 113/55 L 131/78 Pulse Oximetry 100 94 L 99 11/01/17 00:38 11/01/17 03:28 11/01/17 04:00 Temperature 97.7 F Pulse Rate 84 94 H 93 H Respiratory Rate 18 18 Blood Pressure 91/64 L Pulse Oximetry 98 11/01/17 08:40 11/01/17 12:00 11/01/17 12:51 Temperature 97.6 F Pulse Rate 89 89 87 Respiratory Rate 18 18 18 Blood Pressure 134/82 Pulse Oximetry 97 95 11/01/17 14:53 Temperature 97.6 F Pulse Rate 89 Respiratory Rate 18 Blood Pressure Pulse Oximetry 95 Intake & Output 10/31/17 11/01/17 11/01/17 18:59 06:59 18:59 Intake Total 2354.6 / 2354.6 480 / 480 1000 / 1000 Output Total 1715 / 1715 1925 / 1925 Balance 639.6 / 639.6 -1445 / -1445 1000 / 1000 Intake: IV 1051.6 / 1051.6 1000 / 1000 NS Inj 1,000 ML @ 70 mls/hr IV. 1000 / 1000 1000 / 1000 CONT .[id number] [facility] Rx#:[id number] Neupogen Inj 480 MCG In D5W Inj 51.6 / 51.6 50 ML @ 206.4 mls/hr IV.SIG DAILY@1400 [facility] Rx#:[id number] Oral 960 / 960 480 / 480 Intake (Blood Product) Amt 343 / 343 0 / 0 0 / 0 Plt Pheresis B Leukoreduced 0 / 0 Unit [id number] Rbc As-3 Leukoreduced Unit 0 / 0 0 / 0 [id number] Rbc As-3 Leukoreduced Unit 343 / 343 [id number] Output: Urine 1715 / 1715 1925 / 1925 Other: Date of Last Bowel Movement 10/30/17 10/31/17 # Bowel Movements 1 - Constitutional no acute distress - Routine HEENT Exam Head: Present: normocephalic, atraumatic - Routine Respiratory Exam Absent: accessory muscle use - Routine Abdominal Exam Present: soft, normoactive bowel sounds. Absent: tenderness - Routine Skin Exam Present: pallor - Routine Neurological Exam Present: alert, oriented X3 <Jonelle Yee - Last Filed: 11/01/17 15:06> Vital signs: Vital Signs 10/31/17 16:00 10/31/17 16:31 10/31/17 17:02 Temperature 97.6 F 99.0 F Pulse Rate 101 H 80 79 Respiratory Rate 19 14 Blood Pressure 169/65 H 127/60 Pulse Oximetry 100 10/31/17 17:13 10/31/17 18:48 10/31/17 19:00 Temperature 98.7 F 98.4 F Pulse Rate 100 H 99 H Respiratory Rate 17 16 Blood Pressure 125/68 139/74 Pulse Oximetry 100 99 10/31/17 20:00 10/31/17 22:27 11/01/17 00:00 Temperature 97.6 F 97.4 F L Pulse Rate 103 H 82 91 H Respiratory Rate 20 16 20 Blood Pressure 113/55 L 131/78 Pulse Oximetry 100 94 L 99 11/01/17 00:38 11/01/17 03:28 11/01/17 04:00 Temperature 97.7 F Pulse Rate 84 94 H 93 H Respiratory Rate 18 18 Blood Pressure 91/64 L Pulse Oximetry 98 11/01/17 08:40 11/01/17 12:00 11/01/17 12:51 Temperature 97.6 F Pulse Rate 89 89 87 Respiratory Rate 18 18 18 Blood Pressure 134/82 Pulse Oximetry 97 95 11/01/17 14:53 11/01/17 15:30 Temperature 97.6 F 97.5 F L Pulse Rate 89 95 H Respiratory Rate 18 18 Blood Pressure 121/78 Pulse Oximetry 95 96 Intake & Output 10/31/17 11/01/17 11/01/17 18:59 06:59 18:59 Intake Total 2354.6 / 2354.6 480 / 480 1000 / 1000 Output Total 1715 / 1715 1924 / 1924 Balance 639.6 / 639.6 -1445 / -1445 1000 / 1000 Intake: IV 1051.6 / 1051.6 1000 / 1000 NS Inj 1,000 ML @ 70 mls/hr IV. 1000 / 1000 1000 / 1000 CONT .[id number] [facility] Rx#:[id number] Neupogen Inj 480 MCG In D5W Inj 51.6 / 51.6 50 ML @ 206.4 mls/hr IV.SIG DAILY@1400 [facility] Rx#:[id number] Oral 960 / 960 480 / 480 Intake (Blood Product) Amt 343 / 343 0 / 0 0 / 0 Plt Pheresis B Leukoreduced 0 / 0 Unit [id number] Rbc As-3 Leukoreduced Unit 0 / 0 0 / 0 [id number] Rbc As-3 Leukoreduced Unit 343 / 343 [id number] Output: Urine 1715 / 1715 1924 Other: Date of Last Bowel Movement 10/30/17 10/31/17 # Bowel Movements 1 <Carlos Wilder E - Last Filed: 11/01/17 15:57> Results - Labs CBC & Chem 7: 11/01/17 06:44 11/01/17 06:44 Laboratory Results - last 24 hr 10/31/17 11/01/17 11/01/17 11:22 06:44 06:44 WBC 4.1 RBC 3.02 L Hgb 9.8 L D Hct 28.1 L MCV 93.1 MCH 32.5 MCHC 34.9 RDW 17.8 H D Plt Count 17 L* MPV 7.9 Prelim Diff (Auto) Slide review pending Neut % (Auto) 85.3 H Lymph % (Auto) 9.2 [place] % (Auto) 4.6 Eos % (Auto) 0.5 Baso % (Auto) 0.4 Neut # (Auto) 3.5 Lymph # (Auto) 0.4 L [place] # (Auto) 0.2 Eos # (Auto) 0.0 Baso # (Auto) 0.0 WBC Differential . Diff Scan Auto diff confirmed Differential Comment . Platelet Estimate Low L Platelet Morphology Normal Sodium 138 Potassium 3.2 L Chloride 99 Carbon Dioxide 26.4 Anion Gap 13 BUN 7 Creatinine 0.63 Estimated GFR Greater than 89 Random Glucose 99 Calcium 8.6 Crossmatch See Detail MTS Gel Crossmatch See Detail Bld Prod Order Comment 11/01/17 11:21 WBC RBC Hgb Hct MCV MCH MCHC RDW Plt Count MPV Prelim Diff (Auto) Neut % (Auto) Lymph % (Auto) [place] % (Auto) Eos % (Auto) Baso % (Auto) Neut # (Auto) Lymph # (Auto) [place] # (Auto) Eos # (Auto) Baso # (Auto) WBC Differential Diff Scan Differential Comment Platelet Estimate Platelet Morphology Sodium Potassium Chloride Carbon Dioxide Anion Gap BUN Creatinine Estimated GFR Random Glucose Calcium Crossmatch MTS Gel Crossmatch Bld Prod Order Comment Microbiology 10/29/17 12:33 Blood - Peripheral Aerobic Blood Culture - Preliminary No growth in 3 days 10/29/17 12:33 Blood - Peripheral Anaerobic Blood Culture - Preliminary No growth in 3 days 10/29/17 12:32 Blood - Peripheral Aerobic Blood Culture - Preliminary No growth in 3 days 10/29/17 12:32 Blood - Peripheral Anaerobic Blood Culture - Preliminary No growth in 3 days 10/31/17 10:19 Stool Stool Occult Blood (PEDRO) - Final Hemoccult negative <Jonelle Yee - Last Filed: 11/01/17 15:06> - Labs CBC & Chem 7: 11/01/17 06:44 11/01/17 06:44 Laboratory Results - last 24 hr 10/31/17 11/01/17 11/01/17 11:22 06:44 06:44 WBC 4.1 RBC 3.02 L Hgb 9.8 L D Hct 28.1 L MCV 93.1 MCH 32.5 MCHC 34.9 RDW 17.8 H D Plt Count 17 L* MPV 7.9 Prelim Diff (Auto) Slide review pending Neut % (Auto) 85.3 H Lymph % (Auto) 9.2 [place] % (Auto) 4.6 Eos % (Auto) 0.5 Baso % (Auto) 0.4 Neut # (Auto) 3.5 Lymph # (Auto) 0.4 L [place] # (Auto) 0.2 Eos # (Auto) 0.0 Baso # (Auto) 0.0 WBC Differential . Diff Scan Auto diff confirmed Differential Comment . Platelet Estimate Low L Platelet Morphology Normal Sodium 138 Potassium 3.2 L Chloride 99 Carbon Dioxide 26.4 Anion Gap 13 BUN 7 Creatinine 0.63 Estimated GFR Greater than 89 Random Glucose 99 Calcium 8.6 Crossmatch See Detail MTS Gel Crossmatch See Detail Bld Prod Order Comment 11/01/17 11:21 WBC RBC Hgb Hct MCV MCH MCHC RDW Plt Count MPV Prelim Diff (Auto) Neut % (Auto) Lymph % (Auto) [place] % (Auto) Eos % (Auto) Baso % (Auto) Neut # (Auto) Lymph # (Auto) [place] # (Auto) Eos # (Auto) Baso # (Auto) WBC Differential Diff Scan Differential Comment Platelet Estimate Platelet Morphology Sodium Potassium Chloride Carbon Dioxide Anion Gap BUN Creatinine Estimated GFR Random Glucose Calcium Crossmatch MTS Gel Crossmatch Bld Prod Order Comment Microbiology 10/29/17 12:33 Blood - Peripheral Aerobic Blood Culture - Preliminary No growth in 3 days 10/29/17 12:33 Blood - Peripheral Anaerobic Blood Culture - Preliminary No growth in 3 days 10/29/17 12:32 Blood - Peripheral Aerobic Blood Culture - Preliminary No growth in 3 days 10/29/17 12:32 Blood - Peripheral Anaerobic Blood Culture - Preliminary No growth in 3 days <Carlos Wilder - Last Filed: 11/01/17 15:57> Assessment and Plan - Plan Assessment: - Anemia with reports of black stools for the past two weeks- Hemoccult stool negative. Denies nausea, vomiting, abdominal pain. No history of GIB. EGD and colonoscopy in February 2017 by our service --> Irregular Z line, erythematous gastritis in the gastric antrum, normal duodenal mucosa, two medium sized sessile polyp in the rectum, internal hemorrhoids. Pathology revealed Reaves's esophagus and hyperplastic polyps Pt with severe thrombocytopenia at this time S/P 1 U of platelets by oncology - Recent diagnosis of stage IV poorly differentiate squamous cell carcinoma- on chemotherapy and radiation - NSTEMI- cardiology following, pt not a candidate for cardiac cath - Alcohol withdraw- Pt reports 12 days of heavy drinking prior to admission, prior to that he reports only social drinking except in 2014 when he drank heavy after his mother diet (11/01) Pt with a further drop in platelets this morning, 1 U platelets ordered by oncology. Remains too unstable for GI procedures. Palliative has been consulted to assist in determining goals of treatment. Plan: Pt too unstable for GI procedures at this time (elevated troponin, thrombocytopenia) Monitor H/H Transfusion per oncology Protonix Our service will sign off at this time, please reconsult as needed Pt has been seen and examined by myself and Dr. Wilder and this note is written on his behalf <Jonelle Yee - Last Filed: 11/01/17 15:06> - Attending Attestation Patient seen and examined, agree with above, continue with current supportive care, monitor labs No evidence of any active GI bleed at this point Patient high risk for procedures also but regardless no need for any interventions from a GI perspective Not much to add at this point from a GI standpoint we will sign off Reconsult as needed <Carlos Wilder - Last Filed: 11/01/17 15:57>
--- NOTE | 2017-11-01 16:48 | P.DCO ---
- Physical Therapy Order: Evaluate and treat, Improve ambulation, Strength and gait training - Home Health Nursing Order: Medical education, Signs/symptoms of disease process, Medication education-adverse effect - Certification I have seen patient Tee Calderon on 11/01/17. My clinical findings support the need for the requested home health care services because: Limited mobility due to disease progression, Deconditioned with increased weakness, Medication compliance is questionable, Limited ability to care for self, Need for psychosocial assistance I certify that my clinical findings support that this patient is homebound because: Post-op weakness, Impaired cognitive ability/safety, Unsteady gait/balance, Unsafe to leave home unassisted, Unable to use public transportation
--- NOTE | 2017-11-01 17:32 | ECHRPT ---
Indication: CARDIOMYOPATHY CONCLUSIONS Technically very difficult study, making assessment of left ventricular function and wall motion sub optimal. The left ventricular systolic function may be low normal with an estimated ejection fraction of 50%. Normal left ventricular size and wall thickness. Regional wall motion abnormalities cannot be excluded on the basis of this study. The aortic valve is not well visualized. Possible mild aortic leaflet sclerosis. No aortic valve stenosis or regurgitation. BP: / HR: Rhythm: Sinus MEASUREMENTS (Male / Female) Normal Values Technical Quality:Excellent 2D ECHO LV Diastolic Diameter PLAX 4.4 cm 4.2 - 5.9 / 3.9 - 5.3 cm LV Systolic Diameter PLAX 3.5 cm IVS Diastolic Thickness 1.3 cm 0.6 - 1.0 / 0.6 - 0.9 cm LVPW Diastolic Thickness 1.3 cm 0.6 - 1.0 / 0.6 - 0.9 cm LV Relative Wall Thickness 0.6 RV Internal Dim ED PLAX 2.8 cm LVOT Diameter 2.5 cm LV Ejection Fraction MOD 4C 51.3 % LV Ejection Fraction 4C AL 52.3 % M-MODE Aortic Root Diameter MM 3.3 cm LA Systolic Diameter MM 3.9 cm LA Ao Ratio MM 1.2 AV Cusp Separation MM 2.0 cm DOPPLER AV Peak Velocity 117.0 cm/s AV Peak Gradient 5.5 mmHg LVOT Peak Velocity 103.0 cm/s LVOT Peak Gradient 4.2 mmHg AV Area Cont Eq pk 4.3 cm MV Area PHT 5.6 cm Mitral E Point Velocity 60.7 cm/s Mitral A Point Velocity 89.3 cm/s Mitral E to A Ratio 0.7 LV E' Lateral Velocity 6.5 cm/s Mitral E to LV E' Lateral Ratio 9.3 LV E' Septal Velocity 5.5 cm/s Mitral E to LV E' Septal Ratio 11.1 PV Peak Velocity 89.6 cm/s PV Peak Gradient 3.2 mmHg FINDINGS LEFT VENTRICLE Technically very difficult study, making assessment of left ventricular function and wall motion sub optimal. The left ventricular systolic function may be low normal with an estimated ejection fraction of 50%. Normal left ventricular size and wall thickness. Regional wall motion abnormalities cannot be excluded on the basis of this study. RIGHT VENTRICLE Normal right ventricular size and systolic function. LEFT ATRIUM The left atrial size is normal. RIGHT ATRIUM The right atrial size is normal. ATRIAL SEPTUM Normal atrial septal thickness without atrial level shunting by limited color doppler interrogation. AORTA The aortic root and proximal ascending aorta are normal in size on limited imaging. MITRAL VALVE Structurally normal mitral valve. No mitral valve stenosis or regurgitation. AORTIC VALVE The aortic valve is not well visualized. Possible mild aortic leaflet sclerosis. No aortic valve stenosis or regurgitation. TRICUSPID VALVE Structurally normal tricuspid valve. No tricuspid valve stenosis or regurgitation. PULMONARY VALVE The pulmonary valve is not well visualized. VESSELS The inferior vena cava was not well visualized. PERICARDIUM No pericardial effusion. Jason Horn MD (Electronically Signed) Final Date:01 November 2017 17:31
[2017-11-01] MEDS: LORazepam 1 MG Tablet PO SCH (20:53)
[2017-11-02] MEDS: Sod Chloride 0.9% Inj 1,000 ML IV.CONT SCH ×2 (01:00→15:44)
[2017-11-02] MEDS: Pantoprazole Inj 40 MG Vial IV.PUSH SCH ×2 (03:52→15:46)
[2017-11-02 04:35] LABS: Baso % (Auto) 0.2 % (0.0-2.0); Eos % (Auto) 0.4 % (0.0-4.0); Hematocrit 25.7 % (39.0-51.0); Hemoglobin 8.9 gm/dL (13.0-17.0); Lymph # (Auto) 0.4 th/mm3 (1.0-4.8); Lymph % (Auto) 8.9 % (9.0-44.0); Mean Corpuscular HGB Conc 34.7 % (32.0-36.0); Mean Corpuscular Hemoglobin 32.4 pg (27.0-34.0); Mean Corpuscular Volume 93.4 fL (80.0-100.0); Mean Platelet Volume 7.4 fL (7.0-11.0); Mono # (Auto) 0.2 th/mm3 (0.0-0.9); Neut % (Auto) 85.5 % (16.0-70.0); Platelet Count 33 th/mm3 (150-450); Red Blood Count 2.75 mil/mm3 (4.50-5.90); Red Cell Distribution Width 17.9 % (11.6-17.2); White Blood Count 4.7 th/mm3 (4.0-11.0)
[2017-11-02 04:56] LABS: Albumin 2.3 g/dL (3.4-5.0); Anion Gap 10 meq/L (5-15); Aspartate Aminotransferase 11 U/L (15-37); Blood Urea Nitrogen 8 mg/dL (7-18); Calcium 8.4 mg/dL (8.5-10.1); Carbon Dioxide 26.7 meq/L (21.0-32.0); Chloride 101 meq/L (98-107); Glomerular Filtration Rate Greater Than 89 mL/min (>89); Glucose,Random 115 mg/dL (74-106); Potassium 3.6 meq/L (3.5-5.1); Sodium 138 meq/L (136-145)
[2017-11-02 04:58] LABS: Alanine Aminotransferase 9 U/L (12-78)
[2017-11-02 05:00] LABS: Alkaline Phosphatase 90 U/L (45-117); Total Protein 5.5 g/dL (6.4-8.2)
[2017-11-02 05:29] LABS: Ovalocytes 1+; Platelet Morphology Normal (Normal)
[2017-11-02] MEDS: Senna/Docusate Sodium 8.6/50 MG Tablet PO SCH ×2 (08:45→21:13)
[2017-11-02] MEDS: LORazepam 1 MG Tablet PO SCH ×2 (08:53→21:13)
[2017-11-02] MEDS: Lisinopril 10 MG Tablet PO SCH ×2 (08:53→21:13)
[2017-11-02] MEDS: Metoprolol Tartrate 25 MG Tablet PO SCH ×2 (08:53→21:13)
--- NOTE | 2017-11-02 11:23 | P.CONPSY ---
Provisional Diagnosis Admission Date: October 29, 2017 14:49 [place] I.: Adjustment disorder with depressed mood History of Present Illness Consult date: 11/02/17 Requesting Physician: Milan Bazzi Reason for Consult: Assessment Primary Care Provider: Ryley Rodgers MD Family Provider: Ryley Rodgers MD Chief Complaint: SOB History of Present Illness: Patient is a 72-year-old white male admitted to the hospital for treatment of cancer and other medical issues. Patient is seen in his room with medical student Janell. Patient is alert oriented calm cooperative white male no acute distress stating he has hospitalized for treatment of a cancer. This initially upset and made him somewhat depressed however he was able to process these feelings during the initial admission process he states his depression is lifted and he is feeling better. He denies any prior psychiatric contact hospitalization her psychotropic medications. He denies being depressed at this time he denies any suicidality homicidality voices or visions. His mood is euthymic he has a good range and intensity of his affect. He is well oriented with good processing. At the present time I see no need for any specific antidepressant or psychotropic medication. Thus I will sign off the present time please reconsult as necessary Review of Systems Please see med surge assessments PMFSH - History History Provided By: Patient, Medical Record - Medical History Medical History: Medical History (Last Reviewed 11/01/17 @ 17:12 by Luz North) Alcohol dependence Anxiety Barretts esophagus COPD (chronic obstructive pulmonary disease) GERD (gastroesophageal reflux disease) Hyperlipidemia Hypertension Hypothyroidism Lymphedema of left upper extremity Peripheral arterial disease Skin cancer Squamous cell carcinoma of unknown origin - Surgical History Surgical History: Surgical History (Last Updated 11/01/17 @ 17:13 by Luz North) Port-A-Cath in place (Acute) Abnormal colonoscopy H/O angioplasty History of hip replacement Status post bilateral total hip replacement - Family History Family History: Family History (Last Updated 11/01/17 @ 17:14 by Luz North) Mother Natural with unknown cause - Tobacco History Second Hand Smoke Exposure: No Tobacco Use In Past 30 Days: No Smoking Status: Current every day smoker Tobacco Type: Cigarettes - Alcohol History How Often Do You Have a Drink Containing Alcohol: 4 or more times a week (Was drinking approximately 1 quart of rum daily for the past 2 weeks) - Substance Use History Substance History: No History of Abuse - Travel History Recent Travel in the [place] Within the Last 8 Weeks: No Recent Travel Out of the Country Within the Last 8 Weeks: No - Immunization History Tetanus Immunization: >5 Years Hx Influenza Vaccine This Season: No Medications and Allergies Active Medications: Active Medications Acetaminophen (Tylenol) 650 mg PO Q4H PRN PRN Reason: Temp > 100.4 Acetaminophen (Tylenol) 650 mg PO Q4H PRN PRN Reason: SEE LABEL COMMENTS Last Admin: 11/01/17 13:17 Dose: 650 mg Albuterol (Duoneb Neb (Helen)) 1 ampul NEB Q4HR NEB [facility] Last Admin: 11/02/17 08:27 Dose: 1 ampul Atorvastatin Calcium (Lipitor) 20 mg PO DAILY [facility] Last Admin: 11/02/17 08:53 Dose: 20 mg Diphenhydramine HCl (Benadryl) 25 mg PO Q4H PRN PRN Reason: SEE LABEL COMMENTS Last Admin: 11/01/17 13:16 Dose: 25 mg Flumazenil (Romazecon Inj) 0.2 mg IV.PUSH Q1M PRN PRN Reason: OVERSEDATION Fluticasone/Vilanterol (Breo Ellipta 100/25 Mcg Inh) 1 puff INH DAILY [facility] Last Admin: 11/02/17 08:55 Dose: 1 puff Haloperidol Lactate (Haldol Inj) 1 mg IV.PUSH Q15M PRN PRN Reason: for severe agitation Sodium Chloride (Ns Inj) 1,000 mls @ 70 mls/hr IV.CONT .[id number] [facility] Last Infusion: 11/02/17 05:28 Dose: 70 mls/hr Filgrastim 480 mcg/ Dextrose 51.6 mls @ 206.4 mls/hr IV.SIG DAILY@1400 [facility] Last Infusion: 11/01/17 14:25 Dose: Infused Lisinopril (Prinivil) 10 mg PO BID [facility] Last Admin: 11/02/17 08:53 Dose: 10 mg Lorazepam (Ativan) 1 mg PO Q4H PRN PRN Reason: for CIWA 8-10 Lorazepam (Ativan Inj) 2 mg IV.PUSH Q2H PRN PRN Reason: for CIWA 11-14 Lorazepam (Ativan Inj) 2 mg IV.PUSH Q1H PRN PRN Reason: for CIWA 15-20 Lorazepam (Ativan Inj) 2 mg IV.PUSH Q15M PRN PRN Reason: for CIWA > 20 Lorazepam (Ativan Inj) 1 mg IV.PUSH Q4H PRN PRN Reason: for CIWA 8-10 Lorazepam (Ativan) 2 mg PO Q2H PRN PRN Reason: for CIWA 11-14 Lorazepam (Ativan) 1 mg PO Q12HR [facility] Last Admin: 11/02/17 08:53 Dose: 1 mg Metoprolol Tartrate (Lopressor) 50 mg PO BID [facility] Last Admin: 11/02/17 08:53 Dose: 50 mg Ondansetron HCl (Zofran Odt) 4 mg PO Q6H PRN PRN Reason: NAUSEA OR VOMITING Pantoprazole Sodium (Protonix Inj) 40 mg IV.PUSH Q12H [facility] Last Admin: 11/02/17 03:52 Dose: 40 mg Senna/Docusate Sodium (Merced-Colace) 1 tab PO BID [facility] Last Admin: 11/01/17 20:53 Dose: Not Given Silver Sulfadiazine (Silvadene 1% Cream (50 Gm)) 1 applicatio TOPICAL DAILY [facility] Last Admin: 11/02/17 08:55 Dose: 1 applicatio Allergies Allergy/AdvReac Type Severity Reaction Status Date / Time No Known Allergies Allergy Unknown Uncoded 08/13/17 10:45 Home Medications Medication Instructions Recorded Confirmed Type albuterol sulfate [Ventolin HFA] 2 puff INHALATION Q4-6H PRN 10/29/17 10/29/17 History atorvastatin 20 mg PO DAILY 10/29/17 10/29/17 History fluticasone-vilanterol [Breo 1 inh INHALATION DAILY 10/29/17 10/29/17 History Ellipta] ipratropium-albuterol 3 ml INHALATION QID 10/29/17 10/29/17 History lisinopril 10 mg PO BID 10/29/17 10/29/17 History lorazepam 1 mg PO BID 10/29/17 10/29/17 History metoprolol tartrate 25 mg PO BID 10/29/17 10/29/17 History pantoprazole 40 mg PO DAILY 10/29/17 10/29/17 History Exam Vital signs: Vital Signs 11/01/17 12:00 11/01/17 12:51 11/01/17 14:53 Temperature 97.6 F 97.6 F Pulse Rate 89 87 89 Respiratory Rate 18 18 18 Blood Pressure 134/82 Pulse Oximetry 95 95 11/01/17 15:30 11/01/17 19:00 11/01/17 20:07 Temperature 97.5 F L Pulse Rate 95 H 97 H 101 H Respiratory Rate 18 18 Blood Pressure 121/78 Pulse Oximetry 96 95 11/01/17 20:33 11/01/17 23:00 11/01/17 23:37 Temperature 97.8 F Pulse Rate 101 H 80 75 Respiratory Rate 20 18 Blood Pressure 123/68 Pulse Oximetry 98 11/02/17 00:00 11/02/17 03:00 11/02/17 03:06 Temperature 98.0 F Pulse Rate 85 91 H 90 Respiratory Rate 19 18 Blood Pressure 117/75 Pulse Oximetry 96 11/02/17 04:00 11/02/17 08:28 Temperature 97.9 F Pulse Rate 93 H 109 H Respiratory Rate 18 26 H Blood Pressure 125/65 Pulse Oximetry 97 98 Intake & Output 11/01/17 11/02/17 11/02/17 18:59 06:59 18:59 Intake Total 1051.6 / 1051.6 2593 / 2593 Output Total 2124 / 2124 Balance 1051.6 / 1051.6 468 / 468 Intake: IV 1051.6 / 1051.6 1343 / 1343 NS Inj 1,000 ML @ 70 mls/hr IV. 1000 / 1000 1343 / 1343 CONT .[id number] [facility] Rx#:[id number] Neupogen Inj 480 MCG In D5W Inj 51.6 / 51.6 50 ML @ 206.4 mls/hr IV.SIG DAILY@1400 [facility] Rx#:[id number] Oral 1250 / 1250 Intake (Blood Product) Amt 0 / 0 Plt Pheresis B Leukoreduced 0 / 0 Unit [id number] Output: Urine 2124 Other: Date of Last Bowel Movement 10/31/17 10/31/17 10/31/17 Mental Status Examination Appearance: Appropriate (Clean and neat) Consciousness: Alert Orientation: x4 Motor Activity: Other (Patient laying in bed) Speech: Unremarkable Language: Adequate Fund of Knowledge: Adequate Attention and Concentration: Adequate Memory: Unremarkable Mood: Other (Euthymic) Affect: Other (Good range and intensity) Thought Process & Associations: Intact Thought Content: Appropriate Hallucination Type: None Delusion Type: None Suicidal Ideation: No Suicidal Plan: No Suicidal Intention: No Homicidal Ideation: No Homicidal Plan: No Homicidal Intention: No Insight: Adequate Judgment: Adequate Assessment and Plan - Plan Plan: Estimated LOS: [] days Patient's mood at this time is euthymic is calm cooperative denying any problems related to depression. At this time there is no recommendation for medication. He is alert oriented denies suicidality homicidality voice or visions. Thanks for the consult I will sign off the present time and no specific recommendations for medication by me at this time Justification for Continued Inpatient Stay: Per med surge services Discharge Planning: Current med surge team Request Healthcare Surrogate/Guardian Advocate?: No
--- NOTE | 2017-11-02 14:16 | P.PNONC ---
Subjective Interval history: Patient lying in bed, resting comfortably. He has no new complaints at this time. He states he was up ambulating the hallways with physical therapy and did well. Objective Vital Signs/Intake & Output: Vital Signs 11/01/17 14:53 11/01/17 15:30 11/01/17 19:00 Temperature 97.6 F 97.5 F L Pulse Rate 89 95 H 97 H Respiratory Rate 18 18 Blood Pressure 121/78 Pulse Oximetry 95 96 11/01/17 20:07 11/01/17 20:33 11/01/17 23:00 Temperature 97.8 F Pulse Rate 101 H 101 H 80 Respiratory Rate 18 20 Blood Pressure 123/68 Pulse Oximetry 95 98 11/01/17 23:37 11/02/17 00:00 11/02/17 03:00 Temperature 98.0 F Pulse Rate 75 85 91 H Respiratory Rate 18 19 Blood Pressure 117/75 Pulse Oximetry 96 11/02/17 03:06 11/02/17 04:00 11/02/17 08:28 Temperature 97.9 F Pulse Rate 90 93 H 109 H Respiratory Rate 18 18 26 H Blood Pressure 125/65 Pulse Oximetry 97 98 11/02/17 08:45 11/02/17 13:07 Temperature 98.2 F Pulse Rate 85 78 Respiratory Rate 18 24 Blood Pressure 122/80 Pulse Oximetry 95 Intake & Output 11/01/17 11/02/17 11/02/17 18:59 06:59 18:59 Intake Total 1051.6 / 1051.6 2593 / 2593 Output Total 2124 / 2124 Balance 1051.6 / 1051.6 468 / 468 Intake: IV 1051.6 / 1051.6 1343 / 1343 NS Inj 1,000 ML @ 70 mls/hr IV. 1000 / 1000 1343 / 1343 CONT .[id number] [facility] Rx#:[id number] Neupogen Inj 480 MCG In D5W Inj 51.6 / 51.6 50 ML @ 206.4 mls/hr IV.SIG DAILY@1400 [facility] Rx#:[id number] Oral 1250 / 1250 Intake (Blood Product) Amt 0 / 0 Plt Pheresis B Leukoreduced 0 / 0 Unit [id number] Output: Urine 2124 / 2124 Other: Date of Last Bowel Movement 10/31/17 10/31/1710/31/18 Result Diagrams: 11/02/17 03:55 11/02/17 03:55 Laboratory Results: Laboratory Results - last 24 hr 10/31/17 11/01/17 11/02/17 11:22 11:21 03:55 WBC 4.7 RBC 2.75 L Hgb 8.9 L Hct 25.7 L MCV 93.4 MCH 32.4 MCHC 34.7 RDW 17.9 H Plt Count 33 L D MPV 7.4 Prelim Diff (Auto) Slide review pending Neut % (Auto) 85.5 H Lymph % (Auto) 8.9 L Bradley % (Auto) 5.0 Eos % (Auto) 0.4 Baso % (Auto) 0.2 Neut # (Auto) 4.0 Lymph # (Auto) 0.4 L Bradley # (Auto) 0.2 Eos # (Auto) 0.0 Baso # (Auto) 0.0 WBC Differential . Diff Scan Auto diff confirmed Differential Comment . Platelet Estimate Low L Platelet Morphology Normal Ovalocytes 1+ H Sodium Potassium Chloride Carbon Dioxide Anion Gap BUN Creatinine Estimated GFR Random Glucose Calcium Total Bilirubin AST ALT Alkaline Phosphatase Total Protein Albumin Crossmatch See Detail MTS Gel Crossmatch See Detail Bld Prod Order Comment 11/02/17 03:55 WBC RBC Hgb Hct MCV MCH MCHC RDW Plt Count MPV Prelim Diff (Auto) Neut % (Auto) Lymph % (Auto) Bradley % (Auto) Eos % (Auto) Baso % (Auto) Neut # (Auto) Lymph # (Auto) Bradley # (Auto) Eos # (Auto) Baso # (Auto) WBC Differential Diff Scan Differential Comment Platelet Estimate Platelet Morphology Ovalocytes Sodium 138 Potassium 3.6 Chloride 101 Carbon Dioxide 26.7 Anion Gap 10 BUN 8 Creatinine 0.76 Estimated GFR Greater than 89 Random Glucose 115 H Calcium 8.4 L Total Bilirubin 0.4 AST 11 L ALT 9 L Alkaline Phosphatase 90 Total Protein 5.5 L Albumin 2.3 L Crossmatch MTS Gel Crossmatch Bld Prod Order Comment Culture Results: Microbiology 10/29/17 12:33 Aerobic Blood Culture - Preliminary Blood - Peripheral No growth in 4 days Anaerobic Blood Culture - Preliminary No growth in 4 days 10/29/17 12:32 Aerobic Blood Culture - Preliminary Blood - Peripheral No growth in 4 days Anaerobic Blood Culture - Preliminary No growth in 4 days 10/31/17 10:19 Stool Occult Blood (PEDRO) - Final Stool Hemoccult negative Medications: Active Medications Generic Name Dose Route Start Last Admin Trade Name Freq PRN Reason Stop Dose Admin Acetaminophen 650 mg 11/01/17 11:52 11/01/17 13:17 Tylenol PO 650 mg Q4H PRN Administration SEE LABEL COMMENTS Albuterol 1 ampul 10/29/17 16:00 11/02/17 13:07 Duoneb Neb (Helen) NEB 1 ampul Q4HR NEB [facility] Administration Atorvastatin Calcium 20 mg 10/30/17 09:00 11/02/17 08:53 Lipitor PO 20 mg DAILY HEL[facility] Administration Diphenhydramine HCl 25 mg 11/01/17 11:52 11/01/17 13:16 Benadryl PO 25 mg Q4H PRN Administration SEE LABEL COMMENTS Fluticasone/Vilanterol 1 puff 10/30/17 09:00 11/02/17 08:55 Breo Ellipta 100/25 Mcg Inh INH 1 puff DAILY [facility] Administration Sodium Chloride 1,000 mls @ 70 mls/hr 10/29/17 16:00 11/02/17 05:28 Ns Inj IV.CONT 70 mls/hr .[id number] [facility] Infusion Filgrastim 480 mcg/ Dextrose 51.6 mls @ 206.4 mls/hr 10/31/17 17:00 11/02/17 13:25 IV.SIG 206.4 mls/hr DAILY@1400 [facility] Administration Lisinopril 10 mg 10/29/17 21:00 11/02/17 08:53 Prinivil PO 10 mg BID HELEN Administration Lorazepam 1 mg 11/01/17 21:00 11/02/17 08:53 Ativan PO 1 mg Q12HR HELEN Administration Metoprolol Tartrate 50 mg 10/31/17 09:54 11/02/17 08:53 Lopressor PO 50 mg BID HELEN Administration Pantoprazole Sodium 40 mg 10/29/17 16:00 11/02/17 03:52 Protonix Inj IV.PUSH 40 mg Q12H HELEN Administration Senna/Docusate Sodium 1 tab 10/29/17 21:00 11/02/17 08:45 Merced-Colace PO Not Given BID [facility] Silver Sulfadiazine 1 applicatio 10/30/17 09:00 11/02/17 08:55 Silvadene 1% Cream (50 Gm) TOPICAL 1 applicatio DAILY [facility] Administration Objective Remarks: GENERAL: Older male patient, resting in bed, in no acute distress. SKIN: Warm and dry. Excoriated skin to left axilla. HEAD: Normocephalic. EYES: No scleral icterus. No injection or drainage. PEARLA. NECK: Supple, trachea midline. No JVD or lymphadenopathy. CARDIOVASCULAR: Regular rate and rhythm. RESPIRATORY: Posterior left upper lobe mild expiratory wheezing, equal bilaterally. On O2 via nasal cannula. GASTROINTESTINAL: Abdomen soft, non-tender, nondistended. EXTREMITIES: No cyanosis, or edema. MUSCULOSKELETAL: Moves all extremities. Adequate tone. NEUROLOGICAL: No obvious focal deficit. Awake, alert, and oriented x3. 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 He was originally diagnosed in July 2017. Primary either from lung versus skin suspected. He has a very large supraclavicular mass on the left arm. He is currently being treated with carboplatin and Taxol on an outpatient basis with his last treatment being approximately 2 weeks ago. Unfortunately he has been coping with his diagnosis via alcohol. He reports drinking a quart of rum per day. He also mentions he has had frequent loose dark stools. He was noted to have severe anemia on admission with a hemoglobin of 5.9. 1. Neutropenia, continues to improve. Continues to be on neutropenic precautions. He did receive G-CSF support after his last cycle of chemotherapy 5 days, however since his counts continued to worsen, he was started on Neupogen at 480 mcg on 10/31/17. 2. GI has been consulted and will defer invasive workup until patient more stable. 3. H&H stable continues to improve. We will continue to monitor. 4. Thrombocytopenia, status post transfusion of 1 unit of platelets, yesterday. We will continue to monitor. 5. Monitor CBC. Supportive care. 6. Left axilla ulceration, status post radiation therapy. Wound care has been consulted and is managing. Subjectively reported to be improving. - Attending Statement The exam, history, and the medical decision-making described in the above note were completed with the assistance of the mid-level provider. I reviewed and agree with the findings presented. I attest that I had a [id number] encounter with the patient on the same day, and personally performed and documented my assessment and findings in the medical record. Clinically doing better, PLT count low. warned him about grave consequences of binge drinking alcohol while getting chemotherapy and that we will not be able to continue treatment. Discussed case with Dr. Murcia. Ok to D/C home tomorrow if clinically stable. F/U in oncology clinic in 1 week.
--- NOTE | 2017-11-02 17:56 | P.PNIM ---
Subjective Interval history: Pt overall feeling well today He walked in the [place] with PT and is feeling stronger today Physical Exam Vital signs: Vital Signs 11/01/17 19:00 11/01/17 20:07 11/01/17 20:33 Temperature 97.8 F Pulse Rate 97 H 101 H 101 H Respiratory Rate 18 20 Blood Pressure 123/68 Pulse Oximetry 95 98 11/01/17 23:00 11/01/17 23:37 11/02/17 00:00 Temperature 98.0 F Pulse Rate 80 75 85 Respiratory Rate 18 19 Blood Pressure 117/75 Pulse Oximetry 96 11/02/17 03:00 11/02/17 03:06 11/02/17 04:00 Temperature 97.9 F Pulse Rate 91 H 90 93 H Respiratory Rate 18 18 Blood Pressure 125/65 Pulse Oximetry 97 11/02/17 08:28 11/02/17 08:45 11/02/17 13:07 Temperature 98.2 F Pulse Rate 109 H 85 78 Respiratory Rate 26 H 18 24 Blood Pressure 122/80 Pulse Oximetry 98 95 11/02/17 15:26 Temperature Pulse Rate 88 Respiratory Rate 18 Blood Pressure Pulse Oximetry 97 Intake & Output 11/01/17 11/02/17 11/02/17 18:59 06:59 18:59 Intake Total 1051.6 / 1051.6 2593 / 2593 657 / 657 Output Total 2124 / 2124 Balance 1051.6 / 1051.6 468 / 468 657 / 657 Intake: IV 1051.6 / 1051.6 1343 / 1343 657 / 657 NS Inj 1,000 ML @ 70 mls/hr IV. 1000 / 1000 1343 / 1343 657 / 657 CONT .[id number] [facility] Rx#:[id number] Neupogen Inj 480 MCG In D5W Inj 51.6 / 51.6 50 ML @ 206.4 mls/hr IV.SIG DAILY@1400 [facility] Rx#:[id number] Oral 1250 / 1250 Intake (Blood Product) Amt 0 / 0 Plt Pheresis B Leukoreduced 0 / 0 Unit [id number] Output: Urine 2124 / 2124 Other: Date of Last Bowel Movement 10/31/17 10/31/17 10/31/17 Narrative: GENERAL: NAD, AAOx3 CARDIO: Regular RESP: No accessory muscle use. CTA bilaterally. ABD: +BS, soft, non-tender, nondistended. EXT: No LE edema edema. No obvious deformities. Results - Labs CBC & Chem 7: 11/04/17 04:36 11/04/17 04:36 Laboratory Results - last 24 hr 11/02/17 11/02/17 03:55 03:55 WBC 4.7 RBC 2.75 L Hgb 8.9 L Hct 25.7 L MCV 93.4 MCH 32.4 MCHC 34.7 RDW 17.9 H Plt Count 33 L D MPV 7.4 Prelim Diff (Auto) Slide review pending Neut % (Auto) 85.5 H Lymph % (Auto) 8.9 L [place] % (Auto) 5.0 Eos % (Auto) 0.4 Baso % (Auto) 0.2 Neut # (Auto) 4.0 Lymph # (Auto) 0.4 L [place] # (Auto) 0.2 Eos # (Auto) 0.0 Baso # (Auto) 0.0 WBC Differential . Diff Scan Auto diff confirmed Differential Comment . Platelet Estimate Low L Platelet Morphology Normal Ovalocytes 1+ H Sodium 138 Potassium 3.6 Chloride 101 Carbon Dioxide 26.7 Anion Gap 10 BUN 8 Creatinine 0.76 Estimated GFR Greater than 89 Random Glucose 115 H Calcium 8.4 L Total Bilirubin 0.4 AST 11 L ALT 9 L Alkaline Phosphatase 90 Total Protein 5.5 L Albumin 2.3 L Microbiology 10/29/17 12:33 Blood - Peripheral Aerobic Blood Culture - Preliminary No growth in 4 days 10/29/17 12:33 Blood - Peripheral Anaerobic Blood Culture - Preliminary No growth in 4 days 10/29/17 12:32 Blood - Peripheral Aerobic Blood Culture - Preliminary No growth in 4 days 10/29/17 12:32 Blood - Peripheral Anaerobic Blood Culture - Preliminary No growth in 4 days - Imaging Chest CTA 10/29/17 12:11 CONCLUSION: 1. No evidence of pulmonary embolism. 2. New subsegmental airspace disease in the right lower lobe characteristic of pneumonitis. 3. Decreasing size of left axillary mass. 4. No other significant change. Chest X-Ray 10/29/17 12:11 CONCLUSION: Negative for acute process. 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 Lindsey. Pt is also an alcoholic and has been drinking heavily the last 12 days, a quart of rum per day, due to some depression over his cancer diagnosis and the rigors of treatment. - He presented to the ED at [facility] on 10/29/17 with complaints of SOB and pt felt like he was starting to go into alcohol withdrawals. - His labs in the ED noted WBC count 1.9, Hgb 5.9/Hct 17.2, Platelet count 15, 000. - His pancytopenia felt to like be due to chemotherapy side effects. - Pt has been having loose black stools 1-2 times daily, small amounts, for the last week. - Pt s/p transfusion with 2 units PRBCs and 1 units of platelet on 10/29 - Repeat labs on 10/30 with Hgb 8.2/Hct 23.9, platelet count 30,000 - Repeat labs on 10/31 with decrease in Hgb to 7.1 - Protonix 40mg IV BID - Pt had recent outpt EGD/colonoscopy on 03/15/17 which revealed irregular Z- line, erythematous gastritis in the gastric antrum, 2 medium sized sessile polyps in the rectum, internal hemorrhoids - Stool for occult blood negative - Pt is on liquid diet currently - GI consultation requested but pt not felt to be stable enough for any GI procedures at this time. - Pt was transfused with another 2 units PRBCs on 10/31 - Pt started on Neupogen on 10/31 with WBC count improving. - Repeat H/H 9.8/Hct 28.1 on 11/01 and Hgb 8.9/Hct 25.7 on 11/02 - Pt was transfused with another unit of platelets on 11/01 - Monitor labs closely - Supportive care - Chemical DVT prophylaxis is contraindicated with thrombocytopenia SOB, likely multifactorial COPD Possible pneumonitis on CTA - Pts SOB is likely multifactorial, related to his chronic COPD, acute on chronic anemia, and possible pneumonitis noted on imaging - Pulmonary CTA with no evidence of PE, new subsegmental airspace disease in the right lower lobe characteristic of pneumonitis, decreasing size of left axillary mass, otherwise no other significant change. - Pt is normally on 3L of supplemental O2 at home. - Cont. home meds, Luiz Tucker - Duonebs Q4H scheduled Elevated Troponin I - His troponin was elevated at 0.52 in the ED. - Troponin trended up to 1.12 --> 1.93 - Cardiology is following. - Rumney to likely be demand mediated in the setting of his acute anemia. No ischemic changes on EKGs - Pt planned for continued medical management at this time, pt is on Lisinopril 10mg BID and Metoprolol 25mg po BID with parameters. - Pt felt to not be a candidate for antiplatelet or anticoagulant therapy at this time. - 2D echo (11/01/17): - Technically very difficult study, making assessment of left ventricular function and wall motion suboptimal. - The left ventricular systolic function may be low normal with an estimated ejection fraction of 50%. Normal left ventricular size and wall thickness. - Regional wall motion abnormalities cannot be excluded on the basis of this study. - The aortic valve is not well visualized. Possible mild aortic leaflet sclerosis. No aortic valve stenosis or regurgitation. Alcohol abuse EtOH withdrawal - His last alcoholic beverage was the day prior to admission - [place] protocol - Librium to be stopped on 11/01 and pt to be resumed on his home dose of Lorazepam 1mg PO BID Stage IV metastatic SCC undergoing chemo and XRT Radiation dermatitis - Pt follows with Dr. Lindsey and Dr. Silveira for medical and radiation oncology - He has a rash in the left axilla which he reports is from radiation therapy and has reported some weeping from the wound. - Pt received Vancomycin and Cefepime in the ED and blood cultures were drawn prior to that. - Appreciate wound care consultation and recommendations to continue with Silvadene as ordered - Blood cultures with NGTD - Monitor for any fevers - Appreciate Oncology consultation - Appreciate consultation from Palliative Care. For now the patient desires continued aggressive care short of NO CODE/DNR. (2) Alcohol withdrawal Code(s): F10.239 - Alcohol dependence with withdrawal, unspecified Status: Acute (3) Elevated troponin I level Code(s): R74.8 - Abnormal levels of other serum enzymes Status: Acute (4) Lymphoma Code(s): C85.90 - Non-Hodgkin lymphoma, unspecified, unspecified site Status: Acute (5) Pancytopenia Code(s): D61.818 - Other pancytopenia Status: Acute - Attending Attestation Patient examined. Assessment and plan formulated with Ana Norwood PA-C. I agree with the above. 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
[2017-11-03] MEDS: Sod Chloride 0.9% Inj 1,000 ML IV.CONT SCH ×2 (04:31→18:23)
[2017-11-03] MEDS: Pantoprazole Inj 40 MG Vial IV.PUSH SCH ×2 (04:32→17:23)
[2017-11-03 05:05] LABS: Baso % (Auto) 0.2 % (0.0-2.0); Eos % (Auto) 0.6 % (0.0-4.0); Hematocrit 25.3 % (39.0-51.0); Hemoglobin 8.6 gm/dL (13.0-17.0); Lymph # (Auto) 0.4 th/mm3 (1.0-4.8); Lymph % (Auto) 8.5 % (9.0-44.0); Mean Corpuscular Hemoglobin 32.4 pg (27.0-34.0); Mean Corpuscular Volume 95.1 fL (80.0-100.0); Mono # (Auto) 0.3 th/mm3 (0.0-0.9); Mono % (Auto) 5.5 % (0.0-8.0); Neut # (Auto) 4.4 th/mm3 (1.8-7.7); Neut % (Auto) 85.2 % (16.0-70.0); Platelet Count 29 th/mm3 (150-450); Red Blood Count 2.65 mil/mm3 (4.50-5.90); Red Cell Distribution Width 17.3 % (11.6-17.2); White Blood Count 5.1 th/mm3 (4.0-11.0)
[2017-11-03 05:20] LABS: Albumin 2.3 g/dL (3.4-5.0); Anion Gap 11 meq/L (5-15); Aspartate Aminotransferase 8 U/L (15-37); Blood Urea Nitrogen 8 mg/dL (7-18); Calcium 8.4 mg/dL (8.5-10.1); Carbon Dioxide 26.3 meq/L (21.0-32.0); Chloride 102 meq/L (98-107); Glomerular Filtration Rate Greater Than 89 mL/min (>89); Glucose,Random 105 mg/dL (74-106); Potassium 3.7 meq/L (3.5-5.1); Sodium 139 meq/L (136-145)
[2017-11-03 05:22] LABS: Alanine Aminotransferase 10 U/L (12-78)
[2017-11-03 05:25] LABS: Alkaline Phosphatase 85 U/L (45-117); Total Protein 5.3 g/dL (6.4-8.2)
[2017-11-03 09:06] LABS: Platelet Morphology Normal (Normal)
[2017-11-03] MEDS: Senna/Docusate Sodium 8.6/50 MG Tablet PO SCH ×2 (09:09→21:56)
[2017-11-03] MEDS: Metoprolol Tartrate 25 MG Tablet PO SCH ×2 (09:09→21:56)
[2017-11-03] MEDS: LORazepam 1 MG Tablet PO SCH ×2 (09:09→21:56)
[2017-11-03] MEDS: Lisinopril 10 MG Tablet PO SCH ×2 (09:10→21:55)
--- NOTE | 2017-11-03 18:44 | P.PNPAL ---
Reason for Visit Reason for visit: a. To assist with evaluation and management of symptoms including: dyspnea, anxiety. b. To assist medical decision maker(s) with: better understanding of current medical conditions; weighing benefits/burdens of medical treatment options; making medical treatment decisions. Subjective Subjective/Interval History: Patient seen and examined in room. No family at bedside. Patient is awake and alert, remembers me from prior visit. Vital signs stable. On oxygen via nasal cannula at 4 L oxygen saturation running 94-96%. Respirations are even and unlabored. Patient denies anxiety or shortness of breath during my visit. He denies pain except for some general discomfort in the left axillary region. WBC has improved to 5.1, hemoglobin stable at 8.6, hematocrit 25.3 platelets 29. Patient reports appetite has improved significantly. He denies any nausea or vomiting. Cultures negative to date. No new imaging. Patient feels he is getting stronger. Reviewed plan for follow-up with Dr. Lindsey upon discharge. We discussed his recent alcohol use and how he will be unable to pursue additional treatment in the future should he continue to drink. He verbalizes understanding. He indicates that he is in a different mindset at this time than he was a few weeks ago. He feels that he will be able to contact the oncology office should he begin to feel this way so that he does not end up in the same situation. He denies antidepressant use at this time. Patient is very appreciative for the time spent. Family/Friend Interactions: No family at bedside. Advance Directives Living Will: Never completed Health Care Surrogate: Never completed Durable Power of Religious Education Coordinator: Never completed Health Care Surrogate Name and Number: HCP would fall to his if he loses capacity. Documented care wishes:: Mr. Calderon has never completed written advance directives. He signed [place] DNR order. Significant change in goals:: Patient desires continued aggressive care short of NO CODE. Plans to follow-up with outpatient oncology for continued treatment recommendations. Objective Vital Signs: Vital Signs 11/02/17 20:00 11/02/17 20:42 11/02/17 23:54 Temperature 97.7 F Pulse Rate 102 H 90 90 Respiratory Rate 16 16 20 Blood Pressure 150/90 H Pulse Oximetry 96 11/03/17 00:00 11/03/17 04:00 11/03/17 04:31 Temperature 97.5 F L 98 F Pulse Rate 98 H 61 53 L Respiratory Rate 16 16 22 Blood Pressure 137/79 144/84 H Pulse Oximetry 98 97 11/03/17 08:00 11/03/17 08:06 11/03/17 08:12 Temperature 98.9 F Pulse Rate 102 H 91 H Respiratory Rate 18 26 H Blood Pressure 125/72 Pulse Oximetry 98 95 96 11/03/17 11:22 11/03/17 12:00 11/03/17 15:38 Temperature 98.7 F Pulse Rate 94 H 97 H 97 H Respiratory Rate 26 H 18 17 Blood Pressure 124/80 Pulse Oximetry 11/03/17 16:00 Temperature 98.8 F Pulse Rate 94 H Respiratory Rate 18 Blood Pressure 137/89 Pulse Oximetry 94 L Intake & Output 11/02/17 11/03/17 11/03/17 18:59 06:59 18:59 Intake Total 1518.6 / 1518.6 1240 / 1240 1240 / 1240 Output Total 950 / 950 700 / 700 1550 / 1550 Balance 568.6 / 568.6 540 / 540 -310 / -310 Weight 86.1 kg Intake: IV 708.6 / 708.6 1000 / 1000 1000 / 1000 NS Inj 1,000 ML @ 70 mls/hr IV. 657 / 657 1000 / 1000 1000 / 1000 CONT .[id number] [facility] Rx#:[id number] Neupogen Inj 480 MCG In D5W Inj 51.6 / 51.6 50 ML @ 206.4 mls/hr IV.SIG DAILY@1400 [facility] Rx#:[id number] Oral 810 / 810 240 / 240 240 / 240 Output: Urine 950 / 950 700 / 700 1550 / 1550 Other: Date of Last Bowel Movement 10/31/17 10/31/17 10/31/17 Physical Exam: CONSTITUTIONAL/GENERAL: This is an adequately nourished patient, in no apparent distress. TUBES/LINES/DRAINS: Oxygen via nasal cannula, PIV SKIN: No jaundice, rashes, or lesions. Ecchymoses on upper extremities. Left axillary wound with erythema, dry skin. Skin temperature appropriate. Not diaphoretic. CARDIOVASCULAR: Regular rate and rhythm without murmurs. RESPIRATORY/CHEST: Symmetric, unlabored respirations. Clear to auscultation. GASTROINTESTINAL: Abdomen soft, non-tender, nondistended. No guarding. Bowel sounds present. GENITOURINARY: Without palpable bladder distension. MUSCULOSKELETAL: Extremities without clubbing, cyanosis, or edema. No mottling or clubbing. NEUROLOGICAL: Awake and alert. Motor and sensory grossly within normal limits. Follows commands. Cognitively sharp. Moves all extremities. PSYCHIATRIC: Self-reports intermittent, none now. Open to conversation. Diagnostic Tests Laboratory: Laboratory Results - last 72 hr 10/31/17 11/01/17 11/01/17 11:22 06:44 06:44 WBC 4.1 RBC 3.02 L Hgb 9.8 L D Hct 28.1 L MCV 93.1 MCH 32.5 MCHC 34.9 RDW 17.8 H D Plt Count 17 L* MPV 7.9 Prelim Diff (Auto) Slide review pending Neut % (Auto) 85.3 H Lymph % (Auto) 9.2 [place] % (Auto) 4.6 Eos % (Auto) 0.5 Baso % (Auto) 0.4 Neut # (Auto) 3.5 Lymph # (Auto) 0.4 L [place] # (Auto) 0.2 Eos # (Auto) 0.0 Baso # (Auto) 0.0 WBC Differential . Diff Scan Auto diff confirmed Differential Comment . Platelet Estimate Low L Platelet Morphology Normal Ovalocytes Sodium 138 Potassium 3.2 L Chloride 99 Carbon Dioxide 26.4 Anion Gap 13 BUN 7 Creatinine 0.63 Estimated GFR Greater than 89 Random Glucose 99 Calcium 8.6 Total Bilirubin AST ALT Alkaline Phosphatase Total Protein Albumin Crossmatch See Detail MTS Gel Crossmatch See Detail Bld Prod Order Comment 11/01/17 11/02/17 11/02/17 11:21 03:55 03:55 WBC 4.7 RBC 2.75 L Hgb 8.9 L Hct 25.7 L MCV 93.4 MCH 32.4 MCHC 34.7 RDW 17.9 H Plt Count 33 L D MPV 7.4 Prelim Diff (Auto) Slide review pending Neut % (Auto) 85.5 H Lymph % (Auto) 8.9 L [place] % (Auto) 5.0 Eos % (Auto) 0.4 Baso % (Auto) 0.2 Neut # (Auto) 4.0 Lymph # (Auto) 0.4 L [place] # (Auto) 0.2 Eos # (Auto) 0.0 Baso # (Auto) 0.0 WBC Differential . Diff Scan Auto diff confirmed Differential Comment . Platelet Estimate Low L Platelet Morphology Normal Ovalocytes 1+ H Sodium 138 Potassium 3.6 Chloride 101 Carbon Dioxide 26.7 Anion Gap 10 BUN 8 Creatinine 0.76 Estimated GFR Greater than 89 Random Glucose 115 H Calcium 8.4 L Total Bilirubin 0.4 AST 11 L ALT 9 L Alkaline Phosphatase 90 Total Protein 5.5 L Albumin 2.3 L Crossmatch MTS Gel Crossmatch Bld Prod Order Comment 11/03/17 11/03/17 04:45 04:45 WBC 5.1 RBC 2.65 L Hgb 8.6 L Hct 25.3 L MCV 95.1 MCH 32.4 MCHC 34.0 RDW 17.3 H Plt Count 29 L MPV 7.0 Prelim Diff (Auto) Slide review pending Neut % (Auto) 85.2 H Lymph % (Auto) 8.5 L [place] % (Auto) 5.5 Eos % (Auto) 0.6 Baso % (Auto) 0.2 Neut # (Auto) 4.4 Lymph # (Auto) 0.4 L [place] # (Auto) 0.3 Eos # (Auto) 0.0 Baso # (Auto) 0.0 WBC Differential . Diff Scan Auto diff confirmed Differential Comment . Platelet Estimate Low L Platelet Morphology Normal Ovalocytes Sodium 139 Potassium 3.7 Chloride 102 Carbon Dioxide 26.3 Anion Gap 11 BUN 8 Creatinine 0.84 Estimated GFR Greater than 89 Random Glucose 105 Calcium 8.4 L Total Bilirubin 0.3 AST 8 L ALT 10 L Alkaline Phosphatase 85 Total Protein 5.3 L Albumin 2.3 L Crossmatch MTS Gel Crossmatch Bld Prod Order Comment Result Diagrams: 11/04/17 04:36 11/04/17 04:36 Microbiology: Microbiology 10/29/17 12:33 Aerobic Blood Culture - Final Blood - Peripheral No growth in 5 days Anaerobic Blood Culture - Final No growth in 5 days 10/29/17 12:32 Aerobic Blood Culture - Final Blood - Peripheral No growth in 5 days Anaerobic Blood Culture - Final No growth in 5 days Imaging: Chest CTA 10/29/17 12:11 CONCLUSION: 1. No evidence of pulmonary embolism. 2. New subsegmental airspace disease in the right lower lobe characteristic of pneumonitis. 3. Decreasing size of left axillary mass. 4. No other significant change. Chest X-Ray 10/29/17 12:11 CONCLUSION: Negative for acute process. Assessment and Plan Pertinent Non-Medical Issues: Psychosocial: Originally from [place]. Moved to [place] in 1985. x2. Currently marriage to Roma of 22 years. 1 son from previous marriage although has not seen him since he was 7 years old. 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 No . Enjoys anything to do with sports and used to enjoy fishing when he was in better health. Spiritual: Mandaen. Legal: No known legal issues known at this time. Ethical issues impacting care: No known ethical issues known at this time. Important Contacts: Roma Calderon, /HCP: [phone] Prognosis: Mr. 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 He has been undergoing chemotherapy and radiation. He stops treatment secondary to acute alcohol use over the past 2 weeks. He remains high risk for further setbacks and declined especially if he is unable to quit drinking upon discharge. It is unlikely that he will complete any additional chemotherapy if alcohol cessation is not possible. Code Status: No Code DNR Plan: * Decision Maker: Patient is capacitated to make his own healthcare decisions at this time. No written advanced directives. According to [place] statutes, healthcare proxy decision making would fall to his spouse, Roma Sanchez which would be in keeping with the patient's wishes. * NO CODE -completed [place] DO NOT RESUSCITATE order, on chart to go home with pt. * Patient desires continued aggressive care short of NO CODE. Plans to follow- up with outpatient oncology for continued treatment recommendations. * SYMPTOMS: Anxiety: Likely complicated due to COPD, pneumonitis, shortness of breath. Currently controlled with as needed lorazepam per patient's report. We will continue to monitor. Dyspnea: Secondary to cancer, COPD. On oxygen. Continue as needed nebulizer, Lorazepam. Will continue to monitor. * Palliative care will continue to follow throughout hospital course to assist with symptom management and clarification of goals as needed. Attestation Collaborating MD Comments: Chart reviewed. Case discussed with palliative care nurse practitioner. Above SENIOR SQL DEVELOPER note reviewed and I concur. . Attestation: To help prompt me to consider important information that might be impacting today's encounter and assessment, information from prior notes written by myself or my colleagues may have been "brought forward" into today's note. My signature on this note, however, is an attestation that I personally performed the exam, history, and/or decision-making noted today, and, unless otherwise indicated, the interactions with patient, family, and staff as well as the review of records all occurred today. I also attest that the listed assessment and stated plan reflect my best clinical judgment today based on the combination of historical information, prior notes, and today's exam/ interactions. When time spent is documented, it refers only to time spent today by the signer, or if indicated, combined time spent today by collaborating physician/nurse practitioner.
--- NOTE | 2017-11-03 20:01 | P.PNIM ---
Subjective Interval history: Pt had nausea this AM. Pt attributes nausea to large meal 11/02. Pt feeling better this evening. Pt is tolerating PO intake. Pt ambulated in the hallways today with PT. Physical Exam Vital signs: Vital Signs 11/02/17 20:00 11/02/17 20:42 11/02/17 23:54 Temperature 97.7 F Pulse Rate 102 H 90 90 Respiratory Rate 16 16 20 Blood Pressure 150/90 H Pulse Oximetry 96 11/03/17 00:00 11/03/17 04:00 11/03/17 04:31 Temperature 97.5 F L 98 F Pulse Rate 98 H 61 53 L Respiratory Rate 16 16 22 Blood Pressure 137/79 144/84 H Pulse Oximetry 98 97 11/03/17 08:00 11/03/17 08:06 11/03/17 08:12 Temperature 98.9 F Pulse Rate 102 H 91 H Respiratory Rate 18 26 H Blood Pressure 125/72 Pulse Oximetry 98 95 96 11/03/17 11:22 11/03/17 12:00 11/03/17 15:38 Temperature 98.7 F Pulse Rate 94 H 97 H 97 H Respiratory Rate 26 H 18 17 Blood Pressure 124/80 Pulse Oximetry 11/03/17 16:00 Temperature 98.8 F Pulse Rate 94 H Respiratory Rate 18 Blood Pressure 137/89 Pulse Oximetry 94 L Intake & Output 11/03/17 11/03/17 11/04/17 06:59 18:59 06:59 Intake Total 1240 / 1240 1240 / 1240 Output Total 700 / 700 1550 / 1550 Balance 540 / 540 -310 / -310 Weight 86.1 kg Intake: IV 1000 / 1000 1000 / 1000 NS Inj 1,000 ML @ 70 mls/hr IV. 1000 / 1000 1000 / 1000 CONT .[id number] [facility] Rx#:[id number] Oral 240 / 240 240 / 240 Output: Urine 700 / 700 1550 / 1550 Other: Date of Last Bowel Movement 10/31/17 10/31/17 Narrative: GENERAL: NAD, AAOx3 CARDIO: Regular RESP: No accessory muscle use. CTA bilaterally. ABD: +BS, soft, non-tender, nondistended. EXT: No LE edema edema. No obvious deformities. 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 Lindsey. Pt is also an alcoholic and has been drinking heavily the last 12 days, a quart of rum per day, due to some depression over his cancer diagnosis and the rigors of treatment. - He presented to the ED at [facility] on 10/29/17 with complaints of SOB and pt felt like he was starting to go into alcohol withdrawals. - His labs in the ED noted WBC count 1.9, Hgb 5.9/Hct 17.2, Platelet count 15, 000. - His pancytopenia felt to like be due to chemotherapy side effects. - Pt has been having loose black stools 1-2 times daily, small amounts, for the last week. - Pt s/p transfusion with 2 units PRBCs and 1 units of platelet on 10/29 - Repeat labs on 10/30 with Hgb 8.2/Hct 23.9, platelet count 30,000 - Repeat labs on 10/31 with decrease in Hgb to 7.1 - Protonix 40mg IV BID - Pt had recent outpt EGD/colonoscopy on 03/15/17 which revealed irregular Z- line, erythematous gastritis in the gastric antrum, 2 medium sized sessile polyps in the rectum, internal hemorrhoids - Stool for occult blood negative - Pt is on liquid diet currently - GI consultation requested but pt not felt to be stable enough for any GI procedures at this time. - Pt was transfused with another 2 units PRBCs on 10/31 - Pt started on Neupogen on 10/31 with WBC count improving. - Repeat H/H 9.8/Hct 28.1 on 11/01 and Hgb 8.9/Hct 25.7 on 11/02 - Pt was transfused with another unit of platelets on 11/01 - Repeat labs in AM - anticipate d/c to home 11/04/17 - Monitor labs closely - Supportive care - Chemical DVT prophylaxis is contraindicated with thrombocytopenia SOB, likely multifactorial COPD Possible pneumonitis on CTA - Pts SOB is likely multifactorial, related to his chronic COPD, acute on chronic anemia, and possible pneumonitis noted on imaging - Pulmonary CTA with no evidence of PE, new subsegmental airspace disease in the right lower lobe characteristic of pneumonitis, decreasing size of left axillary mass, otherwise no other significant change. - Pt is normally on 3L of supplemental O2 at home. - Cont. home meds, Breo Ellipta - Duonebs Q4H scheduled Elevated Troponin I - His troponin was elevated at 0.52 in the ED. - Troponin trended up to 1.12 --> 1.93 - Cardiology is following. - [place] to likely be demand mediated in the setting of his acute anemia. No ischemic changes on EKGs - Pt planned for continued medical management at this time, pt is on Lisinopril 10mg BID and Metoprolol 25mg po BID with parameters. - Pt felt to not be a candidate for antiplatelet or anticoagulant therapy at this time. - 2D echo (11/01/17): - Technically very difficult study, making assessment of left ventricular function and wall motion suboptimal. - The left ventricular systolic function may be low normal with an estimated ejection fraction of 50%. Normal left ventricular size and wall thickness. - Regional wall motion abnormalities cannot be excluded on the basis of this study. - The aortic valve is not well visualized. Possible mild aortic leaflet sclerosis. No aortic valve stenosis or regurgitation. Alcohol abuse EtOH withdrawal - His last alcoholic beverage was the day prior to admission - [facility] protocol - Librium to be stopped on 11/01 and pt to be resumed on his home dose of Lorazepam 1mg PO BID Stage IV metastatic SCC undergoing chemo and XRT Radiation dermatitis - Pt follows with Dr. Lindsey and Dr. Silveira for medical and radiation oncology - He has a rash in the left axilla which he reports is from radiation therapy and has reported some weeping from the wound. - Pt received Vancomycin and Cefepime in the ED and blood cultures were drawn prior to that. - Appreciate wound care consultation and recommendations to continue with Silvadene as ordered - Blood cultures with NGTD - Monitor for any fevers - Appreciate Oncology consultation - Appreciate consultation from Palliative Care. For now the patient desires continued aggressive care short of NO CODE/DNR. (2) Alcohol withdrawal Code(s): F10.239 - Alcohol dependence with withdrawal, unspecified Status: Acute (3) Elevated troponin I level Code(s): R74.8 - Abnormal levels of other serum enzymes Status: Acute (4) Lymphoma Code(s): C85.90 - Non-Hodgkin lymphoma, unspecified, unspecified site Status: Acute (5) Pancytopenia Code(s): D61.818 - Other pancytopenia Status: Acute (1) Anemia Qualifiers: Anemia type: unspecified type Qualified Code(s): D64.9 - Anemia, unspecified (2) Alcohol withdrawal Qualifiers: Complication of substance-induced condition: with unspecified complication Qualified Code(s): F10.239 - Alcohol dependence with withdrawal, unspecified (4) Lymphoma Qualifiers: Lymphoma type: unspecified type 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
[2017-11-04] MEDS: Pantoprazole Inj 40 MG Vial IV.PUSH SCH (04:40)
[2017-11-04 06:05] LABS: Baso % (Auto) 0.2 % (0.0-2.0); Eos % (Auto) 0.7 % (0.0-4.0); Hematocrit 24.9 % (39.0-51.0); Hemoglobin 8.6 gm/dL (13.0-17.0); Lymph # (Auto) 0.5 th/mm3 (1.0-4.8); Lymph % (Auto) 14.9 % (9.0-44.0); Mean Corpuscular HGB Conc 34.4 % (32.0-36.0); Mean Corpuscular Hemoglobin 32.7 pg (27.0-34.0); Mean Corpuscular Volume 95.1 fL (80.0-100.0); Mean Platelet Volume 7.5 fL (7.0-11.0); Mono # (Auto) 0.3 th/mm3 (0.0-0.9); Mono % (Auto) 9.8 % (0.0-8.0); Neut # (Auto) 2.3 th/mm3 (1.8-7.7); Neut % (Auto) 74.4 % (16.0-70.0); Platelet Count 21 th/mm3 (150-450); Red Blood Count 2.62 mil/mm3 (4.50-5.90); White Blood Count 3.1 th/mm3 (4.0-11.0)
[2017-11-04 06:34] LABS: Albumin 2.4 g/dL (3.4-5.0); Anion Gap 9 meq/L (5-15); Aspartate Aminotransferase 8 U/L (15-37); Blood Urea Nitrogen 9 mg/dL (7-18); Calcium 8.3 mg/dL (8.5-10.1); Carbon Dioxide 28.1 meq/L (21.0-32.0); Chloride 101 meq/L (98-107); Glomerular Filtration Rate Greater Than 89 mL/min (>89); Glucose,Random 99 mg/dL (74-106); Potassium 3.7 meq/L (3.5-5.1); Sodium 138 meq/L (136-145)
[2017-11-04 06:35] LABS: Alanine Aminotransferase 10 U/L (12-78)
[2017-11-04 06:38] LABS: Alkaline Phosphatase 86 U/L (45-117); Total Protein 5.4 g/dL (6.4-8.2)
[2017-11-04 07:59] LABS: Lymphocytes 17 % (9-44); Metamyelocytes 1 % (0-1); Monocytes 8 % (0-8)
[2017-11-04 08:00] LABS: Ovalocytes 1+; Platelet Morphology Normal (Normal)
--- NOTE | 2017-11-04 09:25 | P.DCO ---
- Diagnosis (1) Anemia (2) Alcohol withdrawal (3) Lymphoma - Physical Therapy Order: Evaluate and treat - Home Health Nursing Order: Medical education, Signs/symptoms of disease process, Medication education-adverse effect, Wound care and dressing changes, Nursing assessment with vital signs Instructions: Silver Sulfadiazine to left axilla daily - Parent Aide Order: To evaluate: Support services Order: To provide: Community services - Certification I have seen patient Tee Calderon on 11/04/17. My clinical findings support the need for the requested home health care services because: Limited mobility due to disease progression, Deconditioned with increased weakness, Limited ability to care for self I certify that my clinical findings support that this patient is homebound because: Unsteady gait/balance (1) Anemia Qualifiers: Anemia type: unspecified type Qualified Code(s): D64.9 - Anemia, unspecified (2) Alcohol withdrawal Qualifiers: Complication of substance-induced condition: with unspecified complication Qualified Code(s): F10.239 - Alcohol dependence with withdrawal, unspecified (3) Lymphoma Qualifiers: Lymphoma type: unspecified type 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
--- NOTE | 2017-11-04 09:27 | P.DS ---
<Melody Salguero W - Last Filed: 11/04/17 13:25> Date of admission: 10/29/17 14:49 Primary care physician: Ryley Rodgers MD Attending physician on discharge: Zaheer Murcia Brief History from admission: Mr. 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 Lindsey. Pt is also an alcoholic and has been drinking heavily the last 12 days, a quart of rum per day, due to some depression over his cancer diagnosis and the rigors of treatment. His last alcoholic beverage was yesterday and he does feel shaky today. He presented to the ED at [facility] on with complaints of SOB and pt felt like he was starting to go into alcohol withdrawals. He states that has been having SOB for the last few weeks with a cough with some clear colored phlegm. Denies any fevers or chills. Pt is normally on 2-3L of supplemental O2 at home. He states that his last radiation therapy was about 1 week ago. Pt has been having loose black stools 1-2 times daily, small amounts, for the last week. He has not been taking any prescription medications for the last 12 days while he has been drinking heavily. His labs in the ED noted WBC count 1.9, Hgb 5.9/Hct 17.2, Platelet count 15,000. His troponin was slightly elevated at 0.52. Pulmonary CTA with no evidence of PE, new subsegmental airspace disease in the right lower lobe characteristic of pneumonitis, decreasing size of left axillary mass, otherwise no other significant change. Pt denies any wheezing, chest pain, abdominal pain , fevers/chills, or palpitations. He has a rash in the left axilla which he reports is from radiation therapy and has reported some weeping from the wound. He states that the swelling in the LUE has been much better since the radiation therapy was started. Pt received Vancomycin and Cefepime in the ED and blood cultures were drawn prior to that. Past Medical Hx Stage IV metastatic squamous cell carcinoma of unclear primary (lung cancer suspected) undergoing chemo and XRT with Dr. 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 Alcohol dependence Anxiety COPD Reaves's esophagus Peripheral arterial disease Lumbar disc disease GERD Hypertension Hyperlipidemia Hyperthyroidism Hx of BCC Past Surgical History Cholecystectomy Colonoscopy 03/15/17 revealed 2 medium sized sessile polyps in the rectum, internal hemorrhoids EGD 03/15/2017 revealed irregular Z-line, erythematous gastritis in the gastric antrum Bilateral total hip replacement Angioplasty with atherectomy bilateral SFA Balloon angioplasty of left SFA and ORA in March 2016 Stenting left common iliac artery and right common iliac artery March 2016 Family History Noncontributory Social History (+)tobacco use, 1/2-1 ppd x 55+ years (+) alcohol use, binge drinking over the last 12 days, quart of rum per day Denies any illicit drug use Lives with his Retired from [employer] after 40 years Originally from [place], he moved to [place] in 1985 OUTPT medications: -Albuterol/Ipratropium Nebs QID -Atorvastatin Calcium 20 mg Oral daily -Lisinopril 10 mg PO BID -Lorazepam 1mg PO BID -Metoprolol Tartrate 25 mg PO BID -Pantoprazole Sodium 40 mg PO daily -ProAir HFA 1 (108 (90 Base) mcg/act) Aerosol, solution Inhalation four times a day ?Breo Ellipta 100-25 Inh Daily DS: Diagnosis - Discharge Diagnosis (1) Anemia Status: Acute (2) Metastatic squamous cell carcinoma Status: Chronic (3) Pancytopenia Status: Acute (4) Alcohol abuse Status: Chronic DS: Medications - Discharge Medications Prescriptions: metoprolol tartrate 50 mg PO BID 30 Days #60 tab silver sulfadiazine [SSD] 1 applicatio TOPICAL DAILY 10 Days g DS: Summary Hospital Course: Acute on chronic anemia Pancytopenia - Pt is a 72 y/o WM with 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 Lindsey. Pt is also an alcoholic and has been drinking heavily the last 12 days, a quart of rum per day, due to some depression over his cancer diagnosis and the rigors of treatment. - He presented to the ED at [facility] on 10/29/17 with complaints of SOB and pt felt like he was starting to go into alcohol withdrawals. - His labs in the ED noted WBC count 1.9, Hgb 5.9/Hct 17.2, Platelet count 15, 000. - His pancytopenia felt to like be due to chemotherapy side effects. - Pt has been having loose black stools 1-2 times daily, small amounts, for the last week. - Pt s/p transfusion with 2 units PRBCs and 1 units of platelet on 10/29 - Repeat labs on 10/30 with Hgb 8.2/Hct 23.9, platelet count 30,000 - Repeat labs on 10/31 with decrease in Hgb to 7.1 - Protonix 40mg IV BID - Pt had recent outpt EGD/colonoscopy on 03/15/17 which revealed irregular Z- line, erythematous gastritis in the gastric antrum, 2 medium sized sessile polyps in the rectum, internal hemorrhoids - Stool for occult blood negative - Pt is on liquid diet currently - GI consultation requested but pt not felt to be stable enough for any GI procedures at this time. - Pt was transfused with another 2 units PRBCs on 10/31 - Pt started on Neupogen on 10/31 with WBC count improving. - Repeat H/H 9.8/Hct 28.1 on 11/01 and Hgb 8.9/Hct 25.7 on 11/02 - Pt was transfused with another unit of platelets on 11/01 - Repeat labs in AM - Patient refusing HHC or home health PT. Will DC home - Monitor labs closely - Supportive care - Chemical DVT prophylaxis is contraindicated with thrombocytopenia SOB, likely multifactorial COPD Possible pneumonitis on CTA - Pts SOB is likely multifactorial, related to his chronic COPD, acute on chronic anemia, and possible pneumonitis noted on imaging - Pulmonary CTA with no evidence of PE, new subsegmental airspace disease in the right lower lobe characteristic of pneumonitis, decreasing size of left axillary mass, otherwise no other significant change. - Pt is normally on 3L of supplemental O2 at home. - Cont. home meds, Breo Ellipta - Duonebs Q4H scheduled Elevated Troponin I - His troponin was elevated at 0.52 in the ED. - Troponin trended up to 1.12 --> 1.93 - Cardiology is following. - [place] to likely be demand mediated in the setting of his acute anemia. No ischemic changes on EKGs - Pt planned for continued medical management at this time, pt is on Lisinopril 10mg BID and Metoprolol 25mg po BID with parameters. - Pt felt to not be a candidate for antiplatelet or anticoagulant therapy at this time. - 2D echo (11/01/17): - Technically very difficult study, making assessment of left ventricular function and wall motion suboptimal. - The left ventricular systolic function may be low normal with an estimated ejection fraction of 50%. Normal left ventricular size and wall thickness. - Regional wall motion abnormalities cannot be excluded on the basis of this study. - The aortic valve is not well visualized. Possible mild aortic leaflet sclerosis. No aortic valve stenosis or regurgitation. Alcohol abuse EtOH withdrawal - His last alcoholic beverage was the day prior to admission - [facility] protocol - Librium to be stopped on 11/01 and pt to be resumed on his home dose of Lorazepam 1mg PO BID Stage IV metastatic SCC undergoing chemo and XRT Radiation dermatitis - Pt follows with Dr. Lindsey and Dr. Silveira for medical and radiation oncology - He has a rash in the left axilla which he reports is from radiation therapy and has reported some weeping from the wound. - Pt received Vancomycin and Cefepime in the ED and blood cultures were drawn prior to that. - Appreciate wound care consultation and recommendations to continue with Silvadene as ordered - Blood cultures with NGTD - Monitor for any fevers - Appreciate Oncology consultation - Appreciate consultation from Palliative Care. For now the patient desires continued aggressive care short of NO CODE/DNR. - Time Spent with Patient Total time spent providing and/or coordinating discharge services: Exam Vital signs: Vital Signs 11/03/17 11:22 11/03/17 12:00 11/03/17 15:38 Temperature 98.7 F Pulse Rate 94 H 97 H 97 H Respiratory Rate 26 H 18 17 Blood Pressure 124/80 Pulse Oximetry 11/03/17 16:00 11/03/17 19:00 11/03/17 20:49 Temperature 98.8 F Pulse Rate 94 H 97 H 87 Respiratory Rate 18 22 Blood Pressure 137/89 Pulse Oximetry 94 L 97 11/03/17 21:34 11/03/17 23:00 11/04/17 00:09 Temperature 98.3 F Pulse Rate 97 H 92 H 100 H Respiratory Rate 19 24 Blood Pressure 133/91 H Pulse Oximetry 96 11/04/17 00:10 11/04/17 04:32 11/04/17 04:41 Temperature 98.4 F 98.6 F Pulse Rate 94 H 79 87 Respiratory Rate 19 18 20 Blood Pressure 120/89 145/90 H Pulse Oximetry 94 L 96 11/04/17 08:38 Temperature Pulse Rate 83 Respiratory Rate 14 Blood Pressure Pulse Oximetry Intake & Output 11/03/17 11/04/17 11/04/17 18:59 06:59 18:59 Intake Total 1240 / 1240 600 / 600 Output Total 1550 / 1550 1475 / 1475 Balance -310 / -310 -875 / -875 Weight 86.7 kg Intake: IV 1000 / 1000 NS Inj 1,000 ML @ 70 mls/hr IV. 1000 / 1000 CONT .[id number] [facility] Rx#:[id number] Oral 240 / 240 600 / 600 Output: Urine 1550 / 1550 1475 / 1475 Other: Date of Last Bowel Movement 10/31/17 Narrative: GENERAL: NAD, AAOx3 CARDIO: Regular RESP: No accessory muscle use. CTA bilaterally. ABD: +BS, soft, non-tender, nondistended. EXT: No LE edema edema. No obvious deformities. Results Procedures completed during hospitalization: none Labs on day of discharge: Labs from last 24 hours 11/04/17 11/04/17 04:36 04:36 WBC 3.1 L RBC 2.62 L Hgb 8.6 L Hct 24.9 L MCV 95.1 MCH 32.7 MCHC 34.4 RDW 18.0 H Plt Count 21 L MPV 7.5 Prelim Diff (Auto) Slide review pending Neut % (Auto) 74.4 H Lymph % (Auto) 14.9 Kimble % (Auto) 9.8 H Eos % (Auto) 0.7 Baso % (Auto) 0.2 Neut # (Auto) 2.3 Lymph # (Auto) 0.5 L [place] # (Auto) 0.3 Eos # (Auto) 0.0 Baso # (Auto) 0.0 WBC Differential Manual diff final Seg Neuts % (Manual) 66 Band Neuts % (Manual) 8 H Lymphocytes % (Manual) 17 Monocytes % (Manual) 8 Metamyelocytes % (Man) 1 Abs Neuts (Manual) 2.3 Differential Comment . Platelet Estimate Low L Platelet Morphology Normal Ovalocytes 1+ H Sodium 138 Potassium 3.7 Chloride 101 Carbon Dioxide 28.1 Anion Gap 9 BUN 9 Creatinine 0.69 Estimated GFR Greater than 89 Random Glucose 99 Calcium 8.3 L Total Bilirubin 0.3 AST 8 L ALT 10 L Alkaline Phosphatase 86 Total Protein 5.4 L Albumin 2.4 L - Impressions ITS Impressions Chest CTA 10/29/17 12:11 CONCLUSION: 1. No evidence of pulmonary embolism. 2. New subsegmental airspace disease in the right lower lobe characteristic of pneumonitis. 3. Decreasing size of left axillary mass. 4. No other significant change. Chest X-Ray 10/29/17 12:11 CONCLUSION: Negative for acute process. <Zaheer Murcia - Last Filed: 11/09/17 00:22> Date of admission: 10/29/17 14:49 Primary care physician: Ryley Rodgers MD DS: Diagnosis - Discharge Diagnosis (1) Anemia Status: Acute (2) Alcohol withdrawal Status: Acute (3) Elevated troponin I level Status: Acute (4) Lymphoma Status: Acute (5) Pancytopenia Status: Acute DS: Summary Hospital Course: Patient examined. Assessment and plan formulated with Melody Salguero PA-C. I agree with the above. - Time Spent with Patient Total time spent providing and/or coordinating discharge services: Greater than 30 minutes Results Labs on day of discharge: Labs from last 24 hours 10/29/17 13:38 Rout Panel Path Interp - Impressions ITS Impressions Chest CTA 10/29/17 12:11 CONCLUSION: 1. No evidence of pulmonary embolism. 2. New subsegmental airspace disease in the right lower lobe characteristic of pneumonitis. 3. Decreasing size of left axillary mass. 4. No other significant change. Chest X-Ray 10/29/17 12:11 CONCLUSION: Negative for acute process. Discharge Plan - Discharge Order Discharge Orders: Discharge Order (Routine); Ordered 11/04/17 Ordered By: Melody Salguero - Discharge Details Anticipated Discharge Date: 11/04/17 - Physicians Team Primary Care Provider: Ryley Rodgers Attending Provider: Milan Bazzi Other Providers: Alfredo Lindsey MD ; Osvaldo Silverman DO ; Vidal Bailey MD ; Diann Church MD ; Mikey Hess MD ; [facility]
[2017-11-04] MEDS: LORazepam 1 MG Tablet PO SCH (09:32)
[2017-11-04] MEDS: Lisinopril 10 MG Tablet PO SCH (09:33)
[2017-11-04] MEDS: Metoprolol Tartrate 25 MG Tablet PO SCH (09:33)
[2017-11-04] MEDS: Senna/Docusate Sodium 8.6/50 MG Tablet PO SCH (12:04)
== END 2017-11-04 15:10 | disposition home or self-care (01) ==
LOC: NEPD 11:42 → NEDA 14:49 → N07 19:11 → HCIN 11-01 09:34
PROVIDERS: ADMIT Hospitalist; ATTEND Hospitalist

== ENCOUNTER 2018-01-02 15:50 | Inpatient (IN) ==
[2018-01-02] MEDS ORDERED: MethylPREDNISolone Sod Succinate Inj 125 MG/2 ML Vial IV.PUSH ONE (16:29)
--- NOTE | 2018-01-02 16:36 | ED ---
HPI General Chief complaint: Respiratory Symptoms Stated complaint: SOB Time Seen by Provider: 01/02/18 16:16 History of Present Illness HPI narrative: This patient called paramedics for shortness of breath. He has COPD and still smokes. He is also fairly heavy drinker. He has history of metastatic cancer and is getting radiation therapy. He is due to start chemotherapy after the radiation treatments. He is got wheezing and congestion. He denies fever or chest pain. Severity is severe. No alleviating factors. Symptoms exacerbated by his noncompliance with substance abuse recommendations. He does wear oxygen. Duration 5 days. Related Data Home Medications Medication Instructions Recorded Confirmed albuterol sulfate [Ventolin HFA] 2 puff INHALATION Q4-6H PRN 10/29/17 01/02/18 atorvastatin 20 mg PO HS 10/29/17 01/02/18 ipratropium-albuterol 3 ml INHALATION QID PRN 10/29/17 01/02/18 lisinopril 10 mg PO BID 10/29/17 01/02/18 lorazepam 1 mg PO BID 10/29/17 01/02/18 pantoprazole 40 mg PO DAILY 10/29/17 01/02/18 metoprolol tartrate 50 mg PO BID 01/02/18 01/02/18 Previous Rx's Medication Instructions Recorded rivaroxaban [Xarelto] 15 mg PO BID 21 Days #42 tab 12/14/17 Allergies Allergy/AdvReac Type Severity Reaction Status Date / Time No Known Allergies Allergy Verified 01/02/18 16:11 Review of Systems ROS: all other systems reviewed are negative [facility] Medical History Medical History FHx: radiation therapy (Acute) GERD (gastroesophageal reflux disease) (Acute) HTN (hypertension) (Acute) High cholesterol (Acute) History of blood transfusion (Acute) History of chemotherapy (Acute) Alcohol dependence (Acute) Anxiety (Acute) Barretts esophagus (Acute) COPD (chronic obstructive pulmonary disease) (Acute) GERD (gastroesophageal reflux disease) (Acute) Hyperlipidemia (Acute) Hypertension (Acute) Hypothyroidism (Acute) Lymphedema of left upper extremity (Acute) Peripheral arterial disease (Acute) Skin cancer (Acute) Squamous cell carcinoma of unknown origin (Acute) Surgical History Surgical History Port-A-Cath in place (Acute) Hx of hernia repair (Acute) Hx of shoulder surgery (Acute) Abnormal colonoscopy (Acute) H/O angioplasty (Acute) History of hip replacement (Acute) Status post bilateral total hip replacement (Acute) Social History Social History Substance History: No History of Abuse Second Hand Smoke Exposure: Yes Smoking Status: Current every day smoker Tobacco Type: Cigarettes How Often Do You Have a Drink Containing Alcohol: 2 to 4 times a month Recent Travel in [facility] within the Last 8 Weeks: No Recent Out of Country Travel within the Last 8 Weeks: No Exam Narrative Exam Narrative: GENERAL: Well-nourished, well-developed patient acutely short of breath SKIN: Focused skin assessment reveals no rash but numerous nodules in the left upper extremity and on the back and in the axilla and chest wall. Skin is Warm and dry. HEAD: Atraumatic. Normocephalic. EYES: Pupils equal and round. No scleral icterus. No injection or drainage. ENT: No nasal bleeding or discharge. Mucous membranes pink and moist. NECK: Trachea midline. No JVD. CARDIOVASCULAR: Irregularly irregular rhythm. No murmur appreciated. Heart rate 100 RESPIRATORY: Prominent accessory muscle use. Diffuse expiratory wheezing. Breath sounds equal bilaterally. GASTROINTESTINAL: Abdomen soft, non-tender, nondistended. Hepatic and splenic margins not palpable. MUSCULOSKELETAL: No obvious deformities. No clubbing. No cyanosis. Left arm is edematous and there is a lot of nodularity to the skin. This is the area getting radiated. There is a small open wound about 1 cm long that had been bleeding but is not currently bleeding NEUROLOGICAL: Awake and alert. No obvious cranial nerve deficits. Motor grossly within normal limits. Normal speech. PSYCHIATRIC: Appropriate mood and affect; insight and judgment poor . Course Initial Documented Vital Signs Temperature 98.7 F 01/02/18 16:05 Pulse Rate 103 H 01/02/18 16:05 Respiratory Rate 28 H 01/02/18 16:05 Blood Pressure 101/57 L 01/02/18 16:05 Pulse Oximetry 98 01/02/18 16:05 Last Documented Vital Signs Temperature 98.7 F 01/02/18 16:05 Pulse Rate 104 H 01/02/18 17:31 Respiratory Rate 24 01/02/18 17:31 Blood Pressure 101/57 L 01/02/18 17:31 Pulse Oximetry 98 01/02/18 17:40 Critical Care Time Critical Care Time: Yes Total Critical Care Time: 80 Attestation: Aggregate critical care time was 80 minutes. Time to perform other separately billable procedures was not included in the critical care time. My time did not include minutes spent treating any other patients simultaneously or on activities that did not directly contribute to the patient's treatment. The services I provided to this patient were to treat and/or prevent clinically significant deterioration that could result in: Cardiopulmonary arrest, cardiac arrhythmia, aspiration I provided critical care services requiring my management, as noted below: Chart data review, documentation time, medication orders and management, vital sign assessments/reviewing monitor data, ordering and reviewing lab tests, ordering and interpreting/reviewing x-rays and diagnostic studies, care of the patient and discussion of the patient with the admitting physicians. Medical Decision Making MDM Narrative Medical decision making narrative: Patient arrives critically ill. He is acutely dyspneic. I have given a series of nebulizer treatments and IV Solu- Medrol. He is on oxygen. 2 IVs placed. After discussion with the patient. He has multiple chronic illnesses and metastatic cancer and he wishes to be DO NOT RESUSCITATE. I have filled out the form. Patient I think will require intensive care support. I have ordered him 4 units of packed red cells transfusion given his hemoglobin of 4.9. Rectal exam reveals heme positive dark black stool. He has GI bleed and is on a blood thinner Xarelto. I given him a liter of saline IV as well. Placing a second IV now Placed a call to solutions sales consultant Dr. Rojo to discuss. Multiple rechecks done. He looks quite pale and he is tachycardic and borderline hypotension. Not stable for regular floor. Will require aggressive resuscitation but will respect his DNR status. Medical Screen Exam Complete: Yes Emergency Medical Condition: Yes Differential Diagnosis Differential Diagnosis: COPD, congestive heart failure, symptomatic anemia Medical Records Medical records reviewed: Yes I reviewed the patient's medical records. Lab Data Lab results reviewed: Yes I reviewed the patient's lab results. Result diagrams: 01/02/18 16:15 01/02/18 16:15 Lab Results 01/02/18 01/02/18 Range/Units 16:15 16:15 WBC 10.2 (4.0-11.0) th/mm3 RBC 1.20 L (4.50-5.90) mil/mm3 Hgb 4.9 L* (13.0-17.0) gm/dL Hct 14.5 L* (39.0-51.0) % MCV 120.5 H (80.0-100.0) fL MCH 41.2 H (27.0-34.0) pg MCHC 34.2 (32.0-36.0) % RDW 22.2 H (11.6-17.2) % Plt Count 95 L (150-450) th/mm3 MPV 7.8 (7.0-11.0) fL Prelim Diff (Auto) Slide review pending Neut % (Auto) 92.9 H (16.0-70.0) % Lymph % (Auto) 2.3 L (9.0-44.0) % Fountain % (Auto) 4.8 (0.0-8.0) % Eos % (Auto) 0.0 (0.0-4.0) % Baso % (Auto) 0.0 (0.0-2.0) % Neut # (Auto) 9.5 H (1.8-7.7) th/mm3 Lymph # (Auto) 0.2 L (1.0-4.8) th/mm3 Fountain # (Auto) 0.5 (0.0-0.9) th/mm3 Eos # (Auto) 0.0 (0.0-0.4) th/mm3 Baso # (Auto) 0.0 (0.0-0.2) th/mm3 Differential Comment . Sodium 138 (136-145) meq/L Potassium 4.7 (3.5-5.1) meq/L Chloride 106 (98-107) meq/L Carbon Dioxide 17.3 L (21.0-32.0) meq/L Anion Gap 15 (5-15) meq/L BUN 55 H (7-18) mg/dL Creatinine 1.39 H (0.60-1.30) mg/dL Estimated GFR 50 L (>89) mL/min Random Glucose 119 H (74-106) mg/dL Calcium 7.7 L (8.5-10.1) mg/dL Total Bilirubin 0.3 (0.2-1.0) mg/dL AST 11 L (15-37) U/L ALT 11 L (12-78) U/L Alkaline Phosphatase 48 (45-117) U/L Total Protein 4.9 L (6.4-8.2) g/dL Albumin 2.6 L (3.4-5.0) g/dL Imaging Data Attestation: I personally reviewed and interpreted this imaging study as follows : Radiologist's impression: Chest X-Ray 01/02/18 16:30 CONCLUSION: No acute cardiopulmonary disease. Discharge Plan Discharge Disposition Patient Disposition: 30 Still Patient Discharge Details Diagnosis: Acute GI bleeding, Metastatic squamous cell carcinoma, Anticoagulant long-term use Physicians Team ED Provider: Papo No Primary Care Provider: Ryley Rodgers Rxs /Orders / Referrals /Forms Prescriptions: No Action lisinopril 10 mg Tablet 10 mg PO BID RF: 0 lorazepam 1 mg Tablet 1 mg PO BID RF: 0 pantoprazole 40 mg Tablet,Delayed Release (Dr/Ec) 40 mg PO DAILY RF: 0 albuterol sulfate [Ventolin HFA] 90 mcg/actuation Hfa Aerosol Inhaler 2 puff INHALATION Q4-6H PRN (Reason: SOB) RF: 0 atorvastatin 20 mg Tablet 20 mg PO HS RF: 0 ipratropium-albuterol 0.5 mg-3 mg(2.5 mg base)/3 mL Solution For Nebulization 3 ml INHALATION QID PRN (Reason: Shortness Of Breath) RF: 0 rivaroxaban [Xarelto] 15 mg tablet 15 mg PO BID 21 Days Qty: 42 RF: 0 metoprolol tartrate 50 mg Tablet 50 mg PO BID RF: 0 Discharge Interventions Interventions: Vital Signs Last Done: 01/02/18 17:31 Status ED Status: With Doctor
--- NOTE | 2018-01-02 17:05 | XR ---
EXAM DATE: 01/02/2018 5:00 PM EDT AGE/SEX: 72 years / Male INDICATIONS: Shortness of breath. CLINICAL DATA: This is the patient's initial encounter. Patient reports that signs and symptoms have been present for 1 day and indicates a pain score of 0/10. MEDICAL/SURGICAL HISTORY: Chronic obstructive pulmonary disease. Peripheral artery disease. Ly mph node Ca. . Akmvor-[id number]. COMPARISON: C, CHEST 1V SINGLE AP, 10/29/2017. . FINDINGS: 2 portable frontal views of the chest show chronic elevation of the right hemidiaphragm. Minimal righ t basilar atelectasis medially. No infiltrates or effusions. Heart is normal in size. Power port over lies the right chest. Bony structures are unremarkable. CONCLUSION: No acute cardiopulmonary disease. Electronically signed by: Vasquez Epstein MD 01/02/2018 5:04 PM EDT
[2018-01-02 17:31] LABS: Lymph # (Auto) 0.2 th/mm3 (1.0-4.8); Lymph % (Auto) 2.3 % (9.0-44.0); Mean Corpuscular HGB Conc 34.2 % (32.0-36.0); Mean Corpuscular Hemoglobin 41.2 pg (27.0-34.0); Mean Corpuscular Volume 120.5 fL (80.0-100.0); Mean Platelet Volume 7.8 fL (7.0-11.0); Mono # (Auto) 0.5 th/mm3 (0.0-0.9); Mono % (Auto) 4.8 % (0.0-8.0); Neut # (Auto) 9.5 th/mm3 (1.8-7.7); Neut % (Auto) 92.9 % (16.0-70.0); Platelet Count 95 th/mm3 (150-450); Red Cell Distribution Width 22.2 % (11.6-17.2); White Blood Count 10.2 th/mm3 (4.0-11.0)
[2018-01-02 17:37] LABS: Hematocrit 14.5 % (39.0-51.0); Hemoglobin 4.9 gm/dL (13.0-17.0)
[2018-01-02 17:46] LABS: Alanine Aminotransferase 11 U/L (12-78); Albumin 2.6 g/dL (3.4-5.0); Anion Gap 15 meq/L (5-15); Aspartate Aminotransferase 11 U/L (15-37); Blood Urea Nitrogen 55 mg/dL (7-18); Calcium 7.7 mg/dL (8.5-10.1); Carbon Dioxide 17.3 meq/L (21.0-32.0); Chloride 106 meq/L (98-107); Glomerular Filtration Rate 50 mL/min (>89); Glucose,Random 119 mg/dL (74-106); Potassium 4.7 meq/L (3.5-5.1); Sodium 138 meq/L (136-145)
[2018-01-02 17:48] LABS: Alkaline Phosphatase 48 U/L (45-117); Total Protein 4.9 g/dL (6.4-8.2)
[2018-01-02] MEDS ORDERED: Sod Chloride 0.9% Inj 1,000 ML IV.SIG ONE (17:52)
[2018-01-02] MEDS ORDERED: Sodium Chlor 0.9% Inj 250 ML IV.SIG SCH (18:00)
[2018-01-02 18:10] LABS: Lymphocytes 2 % (9-44); Metamyelocytes 1 % (0-1); Monocytes 1 % (0-8)
[2018-01-02 18:18] LABS: Acanthocytes Occ; Platelet Morphology Normal (Normal)
[2018-01-02] MEDS ORDERED: Acetaminophen 325 MG Tablet PO PRN (18:29)
[2018-01-02] MEDS ORDERED: Bisacodyl 10 MG Supp RECTAL PRN (18:29)
--- NOTE | 2018-01-02 19:08 | P.HPCC ---
History of Present Illness Primary Care Physician: Ryley Rodgers MD History of Present Illness: 72-year-old gentleman initially called paramedics for shortness of breath. He has COPD and still smokes. He is also fairly heavy drinker. He has history of metastatic cancer and is getting radiation therapy. He is due to start chemotherapy after the radiation treatments. He denies fever or chest pain. His symptoms have been exacerbated by his noncompliance with substance abuse recommendations. He does wear oxygen. In the emergency department his hemoglobin was found to be 4.9. He does admit some maroon and black stool. He is on Xarelto for upper extremity DVT. He has been transfused 4 units of PRBCs started in the emergency department and is admitted to ICU. Inpatient Certification: I certify that the inpatient services were ordered in accordance with Medicare regulations governing the order. This includes certification that hospital inpatient services are reasonable and necessary and in the case of services not specified as inpatient-only under 42 CFR 419.22(n), that they are appropriately provided as inpatient services in accordance to with the 2-midnight benchmark under 43 CFR 412.3(e) Estimated Total Length of Stay (Days): 5 Plans for Post Hospital Care: Not yet determined Review of Systems All other systems reviewed negative except as stated in HPI PMFSH - History History Provided By: Patient - Medical History Medical History: Medical History (Last Updated 01/02/18 @ 16:17 by [employer]) FHx: radiation therapy GERD (gastroesophageal reflux disease) HTN (hypertension) High cholesterol History of blood transfusion History of chemotherapy Alcohol dependence Anxiety Barretts esophagus COPD (chronic obstructive pulmonary disease) GERD (gastroesophageal reflux disease) Hyperlipidemia Hypertension Hypothyroidism Lymphedema of left upper extremity Peripheral arterial disease Skin cancer Squamous cell carcinoma of unknown origin - Surgical History Surgical History: Surgical History (Last Updated 01/02/18 @ 16:17 by [employer]) Port-A-Cath in place (Acute) Hx of hernia repair Hx of shoulder surgery Abnormal colonoscopy H/O angioplasty History of hip replacement Status post bilateral total hip replacement - Family History Family History: Family History (Last Reviewed 12/14/17 @ 18:36 by CHRIS Fuentes) Mother Natural with unknown cause - Tobacco History Second Hand Smoke Exposure: Yes Tobacco Use In Past 30 Days: Yes Smoking Status: Current every day smoker Tobacco Type: Cigarettes - Alcohol History How Often Do You Have a Drink Containing Alcohol: 2 to 4 times a month - Substance Use History Substance History: No History of Abuse - Travel History Recent Travel in the [place] Within the Last 8 Weeks: No Recent Travel Out of the Country Within the Last 8 Weeks: No - Immunization History Tetanus Immunization: Unsure Hx Influenza Vaccine This Season: No Medications and Allergies Active Medications: Active Medications Acetaminophen (Tylenol) 650 mg PO Q6H PRN PRN Reason: PAIN 1-10 AND/OR FEVER >101F Al Hydroxide/Mg Hydroxide (Milk Of Magnesia Liq) 30 ml PO Q12H PRN PRN Reason: Mild Constipation Albuterol (Duoneb Neb (Prn)) 1 ampul NEB Q2HR NEB PRN PRN Reason: WHEEZING Albuterol (Duoneb Neb (Prn)) 1 ampul NEB Q4HR NEB KATIE Atorvastatin Calcium (Lipitor) 20 mg PO HS KATIE Bisacodyl (Dulcolax Supp) 10 mg RECTAL DAILY PRN PRN Reason: SEVERE CONSITIPATION Chlorhexidine Gluconate (Chlorhexidine 2% Cloth) 3 pack TOPICAL DAILY@0400 KATIE Stop: 01/08/18 03:59 Chlorhexidine Gluconate (Chlorhexidine 2% Cloth) 3 pack TOPICAL DAILY@0400 PRN PRN Reason: Extra cloth needed Stop: 01/08/18 03:59 Sodium Chloride (Ns Inj) 250 mls @ 15 mls/hr IV.SIG ONCE KATIE Stop: 01/03/18 10:39 Sodium Chloride (Ns Inj) 1,000 mls @ 124 mls/hr IV.CONT .Q8H4M KATIE Lactulose (Lactulose Liq) 30 ml PO DAILY PRN PRN Reason: SEVERE CONSITIPATION Lorazepam (Ativan) 1 mg PO BID [facility] Morphine Sulfate (Morphine Inj) 2 mg IV.PUSH Q2H PRN PRN Reason: PAIN SCALE 6 TO 10 Ondansetron HCl (Zofran Inj) 4 mg IV.PUSH Q6H PRN PRN Reason: NAUSEA OR VOMITING Pantoprazole Sodium (Protonix Inj) 40 mg IV.PUSH Q12H [facility] Senna/Docusate Sodium (Merced-Colace) 1 tab PO BID [facility] Sennosides (Senokot) 17.2 mg PO Q12H PRN PRN Reason: Moderate Constipation Sodium Chloride (Ns Flush) 2 ml IV.FLUSH BID KATIE Sodium Chloride (Ns Flush) 2 ml IV.FLUSH PRN PRN PRN Reason: FLUSH AFTER USING IV ACCESS Allergies Allergy/AdvReac Type Severity Reaction Status Date / Time No Known Allergies Allergy Verified 01/02/18 16:11 Home Medications Medication Instructions Recorded Confirmed Type albuterol sulfate [Ventolin HFA] 2 puff INHALATION Q4-6H PRN 10/29/17 01/02/18 History atorvastatin 20 mg PO HS 10/29/17 01/02/18 History ipratropium-albuterol 3 ml INHALATION QID PRN 10/29/17 01/02/18 History lisinopril 10 mg PO BID 10/29/17 01/02/18 History lorazepam 1 mg PO BID 10/29/17 01/02/18 History pantoprazole 40 mg PO DAILY 10/29/17 01/02/18 History metoprolol tartrate 50 mg PO BID 01/02/18 01/02/18 History Results - Labs CBC & Chem 7: 01/02/18 16:15 01/02/18 16:15 Labs: Short CBC 01/02/18 Range/Units 16:15 WBC 10.2 (4.0-11.0) th/mm3 Hgb 4.9 L* (13.0-17.0) gm/dL Hct 14.5 L* (39.0-51.0) % Plt Count 95 L (150-450) th/mm3 BMP 01/02/18 16:15 Sodium 138 Potassium 4.7 Chloride 106 Carbon Dioxide 17.3 L BUN 55 H Creatinine 1.39 H Calcium 7.7 L Liver Function 01/02/18 Range/Units 16:15 Total Bilirubin 0.3 (0.2-1.0) mg/dL AST 11 L (15-37) U/L ALT 11 L (12-78) U/L Alkaline Phosphatase 48 (45-117) U/L Albumin 2.6 L (3.4-5.0) g/dL - Imaging Impressions Chest X-Ray 01/02/18 16:30 CONCLUSION: No acute cardiopulmonary disease. Exam Vital signs: Vital Signs 01/02/18 16:05 01/02/18 16:30 01/02/18 16:31 Temperature 98.7 F Pulse Rate 103 H 106 H Respiratory Rate 28 H 25 H Blood Pressure 101/57 L 120/90 Pulse Oximetry 98 98 97 01/02/18 17:31 01/02/18 17:40 01/02/18 18:00 Temperature Pulse Rate 104 H 108 H Respiratory Rate 24 16 Blood Pressure 101/57 L 106/50 L Pulse Oximetry 97 98 Intake & Output 01/01/18 01/02/18 01/02/18 18:59 06:59 18:59 Weight 82.554 kg - Constitutional moderate distress - Routine HEENT Exam Head: Present: normocephalic, atraumatic Eye: Present: EOMI, PERRL ENT: Present: mucous membranes moist - Routine Neck Exam Present: supple, full ROM. Absent: JVD, carotid bruit - Routine Respiratory Exam Present: rhonchi, crackles. Absent: accessory muscle use, stridor, wheezes - Routine Cardiovascular Exam Present: RRR, S1, S2 - Routine Abdominal Exam Present: soft, normoactive bowel sounds. Absent: tenderness, distended - Routine Extremities Exam Absent: cyanosis, clubbing, edema - Routine Skin Exam Present: dry, lesions, cracked - Routine Neurological Exam Present: alert, oriented X3, moving all extremities Caprini VTE Risk Assessment Caprini VTE Risk Assessment: Moderate/High Risk (score >= 2) VTE Pharmacological Exception Reason: Hemorrhage Caprini Risk Assessment Model: Point Value = 1 Point Value = 2 Point Value = 3 Point Value = 5 Age 41-60 Minor surgery BMI > 25 kg/m2 Swollen legs Varicose veins or History of unexplained or recurrent spontaneous Oral contraceptives or hormone replacement Sepsis (< 1 month) Serious lung disease, including pneumonia (< 1 month) Abnormal pulmonary function Acute myocardial infarction Congestive heart failure (< 1 month) History of inflammatory bowel disease Medical patient at bed rest Age 61-74 Arthroscopic surgery Major open surgery (> 45 min) Laparoscopic surgery (> 45 min) Malignancy Confined to bed (> 72 hours) Immobilizing plaster cast Central venous access Age >= 75 History of VTE Family history of VTE Factor V Leiden Prothrombin [id number] Lupus anticoagulant Anticardiolipin antibodies Elevated serum homocysteine Heparin-induced thrombocytopenia Other congenital or acquired thrombophilia Stroke (< 1 month) Elective arthroplasty Hip, pelvis, or leg fracture Acute spinal cord injury (< 1 month) Prophylaxis Regimen: Total Risk Factor Score Risk Level Prophylaxis Regimen 0-1 Low Early ambulation 2 Moderate Order ONE of the following: *Sequential Compression Device (SCD) *Heparin 5000 units SQ BID 3-4 Higher Order ONE of the following medications: *Heparin 5000 units SQ TID *Enoxaparin/Lovenox 40 mg SQ daily (WT < 150 kg, CrCl > 30 mL/min) *Enoxaparin/Lovenox 30 mg SQ daily (WT < 150 kg, CrCl > 10-29 mL/min) *Enoxaparin/Lovenox 30 mg SQ BID (WT < 150 kg, CrCl > 30 mL/min) AND/OR *Sequential Compression Device (SCD) 5 or more Highest Order ONE of the following medications: *Heparin 5000 units SQ TID (Preferred with Epidurals) *Enoxaparin/Lovenox 40 mg SQ daily (WT < 150 kg, CrCl > 30 mL/min) *Enoxaparin/Lovenox 30 mg SQ daily (WT < 150 kg, CrCl > 10-29 mL/min) *Enoxaparin/Lovenox 30 mg SQ BID (WT < 150 kg, CrCl > 30 mL/min) AND *Sequential Compression Device (SCD) Assessment and Plan - Assessment and Plan Plan: GI bleed -Hold Xarelto -ICU -Gastroenterology consultation -Protonix IV twice daily -Frequent lab -Transfuse 4 units PRBCs COPD -DuoNeb scheduled and as needed -Hold steroids at this time, no wheezing on physical exam -O2 nasal cannula to keep sats above 92 GERD -Protonix IV twice daily HTN -Hold home antihypertensive meds due to acute GI bleed -Resume when indicated High cholesterol -Atorvastatin Alcohol dependence -Monitor for withdrawal -CIWA meds if indicated Anxiety -Diazepam as needed Squamous cell carcinoma of unknown origin -Oncology consultation DVT GI prophylaxis -Teds SCDs -Protonix IV twice daily -No pharmacological DVT prophylaxis due to acute GI bleed 35 minutes of critical care
[2018-01-02] MEDS: Sod Chloride 0.9% Inj 1,000 ML IV.CONT SCH (19:51)
[2018-01-02] MEDS: LORazepam 1 MG Tablet PO SCH (21:16)
[2018-01-02] MEDS: Pantoprazole Inj 40 MG Vial IV.PUSH SCH (21:17)
[2018-01-02] MEDS: Senna/Docusate Sodium 8.6/50 MG Tablet PO SCH (21:18)
--- NOTE | 2018-01-02 21:55 | CT ---
EXAM DATE: 01/02/2018 9:02 PM EDT AGE/SEX: 72 years / Male INDICATIONS: Shortness of breath. CLINICAL DATA: This is the patient's initial encounter. Patient reports that signs and symptoms have been present for 3 days and indicates a pain score of 3/10. MEDICAL/SURGICAL HISTORY: Chronic obstructive pulmonary disease. Gastroesophageal reflux disease. Hypertension. Skin cancer, lymphatic cancer. . Bilateral hip surgery, hernia repair. RADIATION DOSE: 14.42 CTDI (mGy) COMPARISON: POI, CT CHEST W/ CONTRAST, 12/06/2017. . TECHNIQUE: Multiple contiguous axial images were obtained through the chest without contrast. Image s were obtained in suspended respiration using multiple row detector helical technique. Using automa katlin exposure control and adjustment of the mA and/or kV according to patient size, radiation dose was kept as low as reasonably achievable to obtain optimal diagnostic quality images. DICOM format imag e data is available electronically for review and comparison. FINDINGS: Lungs: There is been interval decrease in patchy consolidation of the medial right lower lobe with r esidual scarring/atelectasis. 9 mm nodular density in the lateral left upper lung seen on the prior s tudy now measures 8 mm. 6 mm nodular density in the left lower lobe inferiorly is much less prominent with minimal 4 mm residual seen. No new areas of pulmonary consolidation or pulmonary nodules. Mediastinum: Diffuse atherosclerotic disease of the aorta and coronary artery calcifications. No enl arged lymph nodes. Pleurae: No evidence of focal thickening or pleural effusion. Axillae: Lobulated soft tissue density/mass of the left axilla measuring 7 to 8 cm grossly unchanged . Bony Structures: Degenerative findings of the thoracic spine. Miscellaneous: Upper abdomen unremarkable. CONCLUSION: 1. No change in left axillary soft tissue density/mass. 2. Decrease in prominence of nodular densities in the left lung. Decrease in patchy right lung paren chymal opacity. 3. Degenerative findings of the thoracic spine and diffuse atherosclerotic disease again noted. Electronically signed by: King Aguilar MD 01/02/2018 9:54 PM EDT
[2018-01-02] MEDS: Morphine Sulfate Inj 2 MG/ML Vial IV.PUSH PRN (23:12)
[2018-01-03] MEDS: Chlorhexidine Gluconate 2% 1 Pack (2 Cloths) TOPICAL SCH (03:10)
[2018-01-03] MEDS ORDERED: Chlorhexidine Gluconate 2% 1 Pack (2 Cloths) TOPICAL PRN (04:00)
[2018-01-03] MEDS: Sod Chloride 0.9% Inj 1,000 ML IV.CONT SCH ×3 (04:48→21:32)
[2018-01-03] MEDS: Pantoprazole Inj 40 MG Vial IV.PUSH SCH ×2 (08:13→21:31)
[2018-01-03] MEDS: LORazepam 1 MG Tablet PO SCH ×2 (08:13→21:31)
[2018-01-03] MEDS: Senna/Docusate Sodium 8.6/50 MG Tablet PO SCH ×2 (08:14→21:32)
[2018-01-03 08:23] LABS: Activated Partial Thrombo Time 20.5 sec (24.3-30.1); INR 1.1 Ratio; Prothrombin Time 10.7 sec (9.8-11.6)
[2018-01-03 08:25] LABS: Baso % (Auto) 0.1 % (0.0-2.0); Lymph # (Auto) 0.2 th/mm3 (1.0-4.8); Lymph % (Auto) 1.8 % (9.0-44.0); Mean Corpuscular HGB Conc 33.3 % (32.0-36.0); Mean Corpuscular Hemoglobin 32.4 pg (27.0-34.0); Mean Corpuscular Volume 97.3 fL (80.0-100.0); Mean Platelet Volume 7.3 fL (7.0-11.0); Mono # (Auto) 0.5 th/mm3 (0.0-0.9); Mono % (Auto) 4.1 % (0.0-8.0); Neut # (Auto) 10.4 th/mm3 (1.8-7.7); Platelet Count 73 th/mm3 (150-450); Red Blood Count 2.14 mil/mm3 (4.50-5.90); Red Cell Distribution Width 30.1 % (11.6-17.2); White Blood Count 11.1 th/mm3 (4.0-11.0)
[2018-01-03 08:31] LABS: Hematocrit 20.8 % (39.0-51.0); Hemoglobin 6.9 gm/dL (13.0-17.0)
[2018-01-03 08:39] LABS: Alanine Aminotransferase 10 U/L (12-78); Albumin 2.4 g/dL (3.4-5.0); Anion Gap 9 meq/L (5-15); Aspartate Aminotransferase 9 U/L (15-37); Blood Urea Nitrogen 59 mg/dL (7-18); Calcium 7.5 mg/dL (8.5-10.1); Carbon Dioxide 20.9 meq/L (21.0-32.0); Chloride 111 meq/L (98-107); Glucose,Random 152 mg/dL (74-106); Magnesium 2.1 mg/dL (1.5-2.5); Potassium 4.2 meq/L (3.5-5.1); Sodium 141 meq/L (136-145)
[2018-01-03 08:52] LABS: Alkaline Phosphatase 41 U/L (45-117); Glomerular Filtration Rate 73 mL/min (>89); Phosphorus 4.2 mg/dL (2.5-4.9); Total Protein 4.6 g/dL (6.4-8.2)
[2018-01-03] MEDS ORDERED: Sodium Chlor 0.9% Inj 250 ML IV.SIG SCH (09:00)
--- NOTE | 2018-01-03 09:19 | P.CONGI ---
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 He still smokes and drinks. Gi have been consulted for anemia, hemoglobin was found to be 4.9. He had one episode of black stool over a week ago but stools have been brown. Denies nausea, vomiting , abd pain, or hematemesis. He is on Xarelto for upper extremity DVT. He also takes 2 Advil daily. Patient had EGD/colonoscopy on ----> Two medium sized sessile polyps were found in the rectum; polypectomy was performed with a cold snare. The colon mucosa was otherwise normal; multiple biopsies were performed. Retroflexed views revealed internal hemorrhoids. Retroflexed views revealed medium internal hemorrhoids. Revealed no abnormalities of the rectum. Irregular z line, this was biopsied. There was erythematous gastritis in the gastric antrum; multiple biopsies were performed. Normal endoscopy otherwise. Normal duodenal mucosa. Retroflexed views revealed no abnormalities. Bx showed hyperplastic polyp, and Reaves, no histopathologic abnormalities. Pt received 4 units of blood. He endorses shortness of breath. <Acacia Zhang - Last Filed: 01/03/18 11:09> Review of Systems All other systems reviewed negative except as stated in HPI <Acacia Zhang - Last Filed: 01/03/18 11:09> PMF - History History Provided By: Patient - Medical History Medical History: Medical History (Last Updated 01/02/18 @ 16:17 by Letsgofordinner) FHx: radiation therapy GERD (gastroesophageal reflux disease) HTN (hypertension) High cholesterol History of blood transfusion History of chemotherapy Alcohol dependence Anxiety Barretts esophagus COPD (chronic obstructive pulmonary disease) GERD (gastroesophageal reflux disease) Hyperlipidemia Hypertension Hypothyroidism Lymphedema of left upper extremity Peripheral arterial disease Skin cancer Squamous cell carcinoma of unknown origin - Surgical History Surgical History: Surgical History (Last Updated 01/02/18 @ 16:17 by Letsgofordinner) Port-A-Cath in place (Acute) Hx of hernia repair Hx of shoulder surgery Abnormal colonoscopy H/O angioplasty History of hip replacement Status post bilateral total hip replacement - Family History Family History: Family History (Last Reviewed 12/14/17 @ 18:36 by CHRIS Fuentes) Mother Natural with unknown cause - Tobacco History Second Hand Smoke Exposure: Yes Tobacco Use In Past 30 Days: Yes Smoking Status: Current every day smoker Tobacco Type: Cigarettes - Alcohol History How Often Do You Have a Drink Containing Alcohol: 2 to 4 times a month - Substance Use History Substance History: No History of Abuse - Travel History Recent Travel in the [place] Within the Last 8 Weeks: No Recent Travel Out of the Country Within the Last 8 Weeks: No - Immunization History Tetanus Immunization: Unsure Hx Influenza Vaccine This Season: No <VicenteLiamheather - Last Filed: 01/03/18 11:09> - Medical History Medical History: Medical History (Last Updated 01/02/18 @ 16:17 by Letsgofordinner) FHx: radiation therapy GERD (gastroesophageal reflux disease) HTN (hypertension) High cholesterol History of blood transfusion History of chemotherapy Alcohol dependence Anxiety Barretts esophagus COPD (chronic obstructive pulmonary disease) GERD (gastroesophageal reflux disease) Hyperlipidemia Hypertension Hypothyroidism Lymphedema of left upper extremity Peripheral arterial disease Skin cancer Squamous cell carcinoma of unknown origin - Surgical History Surgical History: Surgical History (Last Updated 01/02/18 @ 16:17 by Letsgofordinner) Port-A-Cath in place (Acute) Hx of hernia repair Hx of shoulder surgery Abnormal colonoscopy H/O angioplasty History of hip replacement Status post bilateral total hip replacement - Family History Family History: Family History (Last Reviewed 12/14/17 @ 18:36 by CHRIS Fuentes) Mother Natural with unknown cause <Carlos Wilder - Last Filed: 01/03/18 12:02> Medications and Allergies Active Medications: Active Medications Acetaminophen (Tylenol) 650 mg PO Q6H PRN PRN Reason: PAIN 1-10 AND/OR FEVER >101F Al Hydroxide/Mg Hydroxide (Milk Of Magngt Liq) 30 ml PO Q12H PRN PRN Reason: Mild Constipation Albuterol (Duoneb Neb (Prn)) 1 ampul NEB Q2HR NEB PRN PRN Reason: WHEEZING Albuterol (Duoneb Neb (Helen)) 1 ampul NEB Q4HR NEB HELEN Last Admin: 01/03/18 08:08 Dose: 1 ampul Atorvastatin Calcium (Lipitor) 20 mg PO HS HELEN Last Admin: 01/02/18 21:16 Dose: 20 mg Bisacodyl (Dulcolax Supp) 10 mg RECTAL DAILY PRN PRN Reason: SEVERE CONSITIPATION Chlorhexidine Gluconate (Chlorhexidine 2% Cloth) 3 pack TOPICAL DAILY@0400 [facility] Stop: 01/08/18 03:59 Last Admin: 01/03/18 03:10 Dose: 3 pack Chlorhexidine Gluconate (Chlorhexidine 2% Cloth) 3 pack TOPICAL DAILY@0400 PRN PRN Reason: Extra cloth needed Stop: 01/08/18 03:59 Sodium Chloride (Ns Inj) 1,000 mls @ 124 mls/hr IV.CONT .Q8H4M [facility] Last Admin: 01/03/18 04:48 Dose: 124 mls/hr Sodium Chloride (Ns Inj) 250 mls @ 15 mls/hr IV.SIG ONCE [facility] Stop: 01/04/18 01:39 Lactulose (Lactulose Liq) 30 ml PO DAILY PRN PRN Reason: SEVERE CONSITIPATION Lorazepam (Ativan) 1 mg PO BID [facility] Last Admin: 01/03/18 08:13 Dose: 1 mg Morphine Sulfate (Morphine Inj) 2 mg IV.PUSH Q2H PRN PRN Reason: PAIN SCALE 6 TO 10 Last Admin: 01/02/18 23:12 Dose: 2 mg Ondansetron HCl (Zofran Inj) 4 mg IV.PUSH Q6H PRN PRN Reason: NAUSEA OR VOMITING Pantoprazole Sodium (Protonix Inj) 40 mg IV.PUSH Q12HR [facility] Last Admin: 01/03/18 08:13 Dose: 40 mg Senna/Docusate Sodium (Merecd-Colace) 1 tab PO BID [facility] Last Admin: 01/03/18 08:14 Dose: Not Given Sennosides (Senokot) 17.2 mg PO Q12H PRN PRN Reason: Moderate Constipation Sodium Chloride (Ns Flush) 2 ml IV.FLUSH BID [facility] Last Admin: 01/03/18 08:13 Dose: 2 ml Sodium Chloride (Ns Flush) 2 ml IV.FLUSH PRN PRN PRN Reason: FLUSH AFTER USING IV ACCESS <Acacia Zhang - Last Filed: 01/03/18 11:09> Active Medications: Active Medications Acetaminophen (Tylenol) 650 mg PO Q6H PRN PRN Reason: PAIN 1-10 AND/OR FEVER >101F Al Hydroxide/Mg Hydroxide (Milk Of Magnesia Liq) 30 ml PO Q12H PRN PRN Reason: Mild Constipation Albuterol (Duoneb Neb (Prn)) 1 ampul NEB Q2HR NEB PRN PRN Reason: WHEEZING Albuterol (Duoneb Neb (Helen)) 1 ampul NEB Q4HR NEB [facility] Last Admin: 01/03/18 11:21 Dose: Not Given Atorvastatin Calcium (Lipitor) 20 mg PO HS [facility] Last Admin: 01/02/18 21:16 Dose: 20 mg Bisacodyl (Dulcolax Supp) 10 mg RECTAL DAILY PRN PRN Reason: SEVERE CONSITIPATION Chlorhexidine Gluconate (Chlorhexidine 2% Cloth) 3 pack TOPICAL DAILY@0400 [facility] Stop: 01/08/18 03:59 Last Admin: 01/03/18 03:10 Dose: 3 pack Chlorhexidine Gluconate (Chlorhexidine 2% Cloth) 3 pack TOPICAL DAILY@0400 PRN PRN Reason: Extra cloth needed Stop: 01/08/18 03:59 Sodium Chloride (Ns Inj) 1,000 mls @ 124 mls/hr IV.CONT .Q8H4M [facility] Last Admin: 01/03/18 04:48 Dose: 124 mls/hr Sodium Chloride (Ns Inj) 250 mls @ 15 mls/hr IV.SIG ONCE [facility] Stop: 01/04/18 01:39 Last Admin: 01/03/18 10:18 Dose: 15 mls/hr Lactulose (Lactulose Liq) 30 ml PO DAILY PRN PRN Reason: SEVERE CONSITIPATION Lorazepam (Ativan) 1 mg PO BID [facility] Last Admin: 01/03/18 08:13 Dose: 1 mg Morphine Sulfate (Morphine Inj) 2 mg IV.PUSH Q2H PRN PRN Reason: PAIN SCALE 6 TO 10 Last Admin: 01/02/18 23:12 Dose: 2 mg Ondansetron HCl (Zofran Inj) 4 mg IV.PUSH Q6H PRN PRN Reason: NAUSEA OR VOMITING Pantoprazole Sodium (Protonix Inj) 40 mg IV.PUSH Q12HR [facility] Last Admin: 01/03/18 08:13 Dose: 40 mg Senna/Docusate Sodium (Merced-Colace) 1 tab PO BID [facility] Last Admin: 01/03/18 08:14 Dose: Not Given Sennosides (Senokot) 17.2 mg PO Q12H PRN PRN Reason: Moderate Constipation Sodium Chloride (Ns Flush) 2 ml IV.FLUSH BID HELEN Last Admin: 01/03/18 08:13 Dose: 2 ml Sodium Chloride (Ns Flush) 2 ml IV.FLUSH PRN PRN PRN Reason: FLUSH AFTER USING IV ACCESS <Carlos Wilder - Last Filed: 01/03/18 12:02> Allergies Allergy/AdvReac Type Severity Reaction Status Date / Time No Known Allergies Allergy Verified 01/02/18 16:11 Home Medications Medication Instructions Recorded Confirmed Type albuterol sulfate [Ventolin HFA] 2 puff INHALATION Q4-6H PRN 10/29/17 01/02/18 History atorvastatin 20 mg PO HS 10/29/17 01/02/18 History ipratropium-albuterol 3 ml INHALATION QID PRN 10/29/17 01/02/18 History lisinopril 10 mg PO BID 10/29/17 01/02/18 History lorazepam 1 mg PO BID 10/29/17 01/02/18 History pantoprazole 40 mg PO DAILY 10/29/17 01/02/18 History metoprolol tartrate 50 mg PO BID 01/02/18 01/02/18 History Exam Vital signs: Vital Signs 01/02/18 16:05 01/02/18 16:30 01/02/18 16:31 Temperature 98.7 F Pulse Rate 103 H 106 H Respiratory Rate 28 H 25 H Blood Pressure 101/57 L 120/90 Pulse Oximetry 98 98 97 01/02/18 17:31 01/02/18 17:40 01/02/18 18:00 Temperature Pulse Rate 104 H 108 H Respiratory Rate 24 16 Blood Pressure 101/57 L 106/50 L Pulse Oximetry 97 98 01/02/18 19:20 01/02/18 20:10 01/02/18 20:11 Temperature 99.2 F Pulse Rate 107 H 109 H 109 H Respiratory Rate 20 22 Blood Pressure 118/61 123/59 L Pulse Oximetry 98 01/02/18 20:52 01/02/18 21:00 01/02/18 21:04 Temperature 99.2 F Pulse Rate 117 H 107 H 102 H Respiratory Rate 27 H 26 H 20 Blood Pressure 95/60 L 94/52 L 95/61 L Pulse Oximetry 100 100 99 01/02/18 21:13 01/02/18 21:15 01/02/18 21:30 Temperature Pulse Rate 106 H 103 H 120 H Respiratory Rate 22 22 22 Blood Pressure 99/65 L 125/60 Pulse Oximetry 100 100 99 01/02/18 21:45 01/02/18 22:00 01/02/18 22:15 Temperature Pulse Rate 120 H 110 H 109 H Respiratory Rate 17 19 25 H Blood Pressure 97/53 L 112/62 102/54 L Pulse Oximetry 100 99 98 01/02/18 22:30 01/02/18 22:45 01/02/18 23:00 Temperature Pulse Rate 111 H 113 H 108 H Respiratory Rate 16 22 20 Blood Pressure 106/74 96/54 L 97/53 L Pulse Oximetry 96 97 97 01/02/18 23:15 01/02/18 23:30 01/02/18 23:31 Temperature Pulse Rate 109 H 104 H Respiratory Rate 26 H 15 17 Blood Pressure 101/56 L 99/56 L Pulse Oximetry 97 98 01/02/18 23:45 01/03/18 00:00 01/03/18 00:08 Temperature Pulse Rate 103 H 108 H 107 H Respiratory Rate 13 18 22 Blood Pressure 103/55 L 102/58 L Pulse Oximetry 99 100 01/03/18 00:15 01/03/18 00:30 01/03/18 00:43 Temperature 98.5 F 98.5 F Pulse Rate 113 H 107 H 101 H Respiratory Rate 31 H 14 18 Blood Pressure 80/64 L 102/58 L 102/58 L Pulse Oximetry 95 97 100 01/03/18 00:45 01/03/18 01:00 01/03/18 01:15 Temperature 98.5 F Pulse Rate 103 H 98 H 95 H Respiratory Rate 20 12 31 H Blood Pressure 97/53 L 99/58 L 102/59 L Pulse Oximetry 100 100 100 01/03/18 01:30 01/03/18 01:45 01/03/18 02:00 Temperature Pulse Rate 96 H 94 H 105 H Respiratory Rate 14 15 15 Blood Pressure 103/66 115/62 101/58 L Pulse Oximetry 98 99 99 01/03/18 02:15 01/03/18 02:30 01/03/18 02:45 Temperature Pulse Rate 94 H 95 H 92 H Respiratory Rate 12 13 16 Blood Pressure 109/59 L 128/64 130/64 Pulse Oximetry 98 100 100 01/03/18 02:54 01/03/18 03:00 01/03/18 03:05 Temperature 98.5 F 98.5 F Pulse Rate 93 H 93 H 96 H Respiratory Rate 14 17 16 Blood Pressure 130/64 126/73 126/73 Pulse Oximetry 100 100 100 01/03/18 03:15 01/03/18 03:30 01/03/18 03:45 Temperature 98.5 F Pulse Rate 91 H 94 H 90 Respiratory Rate 12 13 12 Blood Pressure 130/64 116/63 111/59 L Pulse Oximetry 99 99 100 01/03/18 04:00 01/03/18 04:14 01/03/18 04:15 Temperature 98.5 F Pulse Rate 93 H 91 H 93 H Respiratory Rate 21 22 25 H Blood Pressure 113/61 127/63 Pulse Oximetry 100 100 01/03/18 04:30 01/03/18 04:43 01/03/18 04:45 Temperature 97.9 F Pulse Rate 92 H 91 H 95 H Respiratory Rate 14 15 17 Blood Pressure 128/69 128/69 118/66 Pulse Oximetry 87 L 100 99 01/03/18 05:00 01/03/18 05:30 01/03/18 06:00 Temperature 98.0 F Pulse Rate 90 98 H 93 H Respiratory Rate 13 18 13 Blood Pressure 115/61 122/64 126/61 Pulse Oximetry 100 96 100 01/03/18 08:09 01/03/18 08:18 Temperature 97.8 F Pulse Rate 100 H 98 H Respiratory Rate 20 24 Blood Pressure 108/65 Pulse Oximetry 100 Intake & Output 01/02/18 01/03/18 01/03/18 18:59 06:59 18:59 Intake Total 2850 / 2850 0 / 0 Output Total 1100 / 1100 Balance 1750 / 1750 0 / 0 Weight 82.554 kg 82.2 kg Intake: IV 1999 / 1999 NS Inj 1,000 ML @ 124 mls/hr IV 1000 / 1000 .CONT .Q8H4M HELEN Rx#:[id number] NS Inj 1,000 ML @ Wide Open IV. 1000 / 1000 SIG BOLUS ONE Rx#:[id number] Oral 50 / 50 Intake (Blood Product) Amt 800 / 800 0 / 0 Rbc As-3 Leukoreduced Unit 400 / 400 [id number] Rbc As-3 Leukoreduced Unit 400 / 400 0 / 0 [id number] Rbc As-3 Leukoreduced Unit 0 / 0 [id number] Rbc As-3 Leukoreduced Unit 0 / 0 [id number] Output: Urine 1100 / 1100 Emesis 0 / 0 Other: # Voids 4 # Bowel Movements 0 Weight On Admission 80.6 kg - Constitutional no acute distress - Routine HEENT Exam Head: Present: normocephalic - Routine Respiratory Exam Present: distant breath sounds, diminished air movement - Routine Cardiovascular Exam Present: RRR - Routine Abdominal Exam Present: soft, normoactive bowel sounds. Absent: tenderness, distended - Routine Extremities Exam Comments: Left arm with gauze, lesions and swelling - Routine Skin Exam Present: erythema, wounds, cracked - Routine Neurological Exam Present: alert, oriented X3 <Acacia Zhang - Last Filed: 01/03/18 11:09> Vital signs: Vital Signs 01/02/18 16:05 01/02/18 16:30 01/02/18 16:31 Temperature 98.7 F Pulse Rate 103 H 106 H Respiratory Rate 28 H 25 H Blood Pressure 101/57 L 120/90 Pulse Oximetry 98 98 97 01/02/18 17:31 01/02/18 17:40 01/02/18 18:00 Temperature Pulse Rate 104 H 108 H Respiratory Rate 24 16 Blood Pressure 101/57 L 106/50 L Pulse Oximetry 97 98 01/02/18 19:20 01/02/18 20:10 01/02/18 20:11 Temperature 99.2 F Pulse Rate 107 H 109 H 109 H Respiratory Rate 20 22 Blood Pressure 118/61 123/59 L Pulse Oximetry 98 01/02/18 20:52 01/02/18 21:00 01/02/18 21:04 Temperature 99.2 F Pulse Rate 117 H 107 H 102 H Respiratory Rate 27 H 26 H 20 Blood Pressure 95/60 L 94/52 L 95/61 L Pulse Oximetry 100 100 99 01/02/18 21:13 01/02/18 21:15 01/02/18 21:30 Temperature Pulse Rate 106 H 103 H 120 H Respiratory Rate 22 22 22 Blood Pressure 99/65 L 125/60 Pulse Oximetry 100 100 99 01/02/18 21:45 01/02/18 22:00 01/02/18 22:15 Temperature Pulse Rate 120 H 110 H 109 H Respiratory Rate 17 19 25 H Blood Pressure 97/53 L 112/62 102/54 L Pulse Oximetry 100 99 98 01/02/18 22:30 01/02/18 22:45 01/02/18 23:00 Temperature Pulse Rate 111 H 113 H 108 H Respiratory Rate 16 22 20 Blood Pressure 106/74 96/54 L 97/53 L Pulse Oximetry 96 97 97 01/02/18 23:15 01/02/18 23:30 01/02/18 23:31 Temperature Pulse Rate 109 H 104 H Respiratory Rate 26 H 15 17 Blood Pressure 101/56 L 99/56 L Pulse Oximetry 97 98 01/02/18 23:45 01/03/18 00:00 01/03/18 00:08 Temperature Pulse Rate 103 H 108 H 107 H Respiratory Rate 13 18 22 Blood Pressure 103/55 L 102/58 L Pulse Oximetry 99 100 01/03/18 00:15 01/03/18 00:30 01/03/18 00:43 Temperature 98.5 F 98.5 F Pulse Rate 113 H 107 H 101 H Respiratory Rate 31 H 14 18 Blood Pressure 80/64 L 102/58 L 102/58 L Pulse Oximetry 95 97 100 01/03/18 00:45 01/03/18 01:00 01/03/18 01:15 Temperature 98.5 F Pulse Rate 103 H 98 H 95 H Respiratory Rate 20 12 31 H Blood Pressure 97/53 L 99/58 L 102/59 L Pulse Oximetry 100 100 100 01/03/18 01:30 01/03/18 01:45 01/03/18 02:00 Temperature Pulse Rate 96 H 94 H 105 H Respiratory Rate 14 15 15 Blood Pressure 103/66 115/62 101/58 L Pulse Oximetry 98 99 99 01/03/18 02:15 01/03/18 02:30 01/03/18 02:45 Temperature Pulse Rate 94 H 95 H 92 H Respiratory Rate 12 13 16 Blood Pressure 109/59 L 128/64 130/64 Pulse Oximetry 98 100 100 01/03/18 02:54 01/03/18 03:00 01/03/18 03:05 Temperature 98.5 F 98.5 F Pulse Rate 93 H 93 H 96 H Respiratory Rate 14 17 16 Blood Pressure 130/64 126/73 126/73 Pulse Oximetry 100 100 100 01/03/18 03:15 01/03/18 03:30 01/03/18 03:45 Temperature 98.5 F Pulse Rate 91 H 94 H 90 Respiratory Rate 12 13 12 Blood Pressure 130/64 116/63 111/59 L Pulse Oximetry 99 99 100 01/03/18 04:00 01/03/18 04:14 01/03/18 04:15 Temperature 98.5 F Pulse Rate 93 H 91 H 93 H Respiratory Rate 21 22 25 H Blood Pressure 113/61 127/63 Pulse Oximetry 100 100 01/03/18 04:30 01/03/18 04:43 01/03/18 04:45 Temperature 97.9 F Pulse Rate 92 H 91 H 95 H Respiratory Rate 14 15 17 Blood Pressure 128/69 128/69 118/66 Pulse Oximetry 87 L 100 99 01/03/18 05:00 01/03/18 05:30 01/03/18 06:00 Temperature 98.0 F Pulse Rate 90 98 H 93 H Respiratory Rate 13 18 13 Blood Pressure 115/61 122/64 126/61 Pulse Oximetry 100 96 100 01/03/18 07:00 01/03/18 08:00 01/03/18 08:09 Temperature 97.8 F Pulse Rate 97 H 121 H 100 H Respiratory Rate 16 17 20 Blood Pressure 132/65 108/65 Pulse Oximetry 100 100 100 01/03/18 08:18 01/03/18 09:00 01/03/18 10:00 Temperature 97.8 F Pulse Rate 98 H 105 H 102 H Respiratory Rate 24 16 17 Blood Pressure 108/65 119/71 124/68 Pulse Oximetry 98 100 01/03/18 10:55 01/03/18 11:09 01/03/18 11:33 Temperature 97.8 F 97.8 F 97.8 F Pulse Rate 101 H 102 H 96 H Respiratory Rate 17 18 18 Blood Pressure 124/68 129/75 Pulse Oximetry 95 95 Intake & Output 01/02/18 01/03/18 01/03/18 18:59 06:59 18:59 Intake Total 2850 / 2850 400 / 400 Output Total 1100 / 1100 Balance 1750 / 1750 400 / 400 Weight 82.554 kg 82.2 kg Intake: IV 1999 / 1999 NS Inj 1,000 ML @ 124 mls/hr IV 1000 / 1000 .CONT .Q8H4M HELEN Rx#:[id number] NS Inj 1,000 ML @ Wide Open IV. 1000 / 1000 SIG BOLUS ONE Rx#:[id number] Oral 50 / 50 Intake (Blood Product) Amt 800 / 800 400 / 400 Rbc As-3 Leukoreduced Unit 400 / 400 [id number] Rbc As-3 Leukoreduced Unit 400 / 400 0 / 0 [id number] Rbc As-3 Leukoreduced Unit 0 / 0 [id number] Rbc As-3 Leukoreduced Unit 400 / 400 [id number] Rbc As-3 Leukoreduced Unit 0 / 0 [id number] Output: Urine 1100 / 1100 Emesis 0 / 0 Other: # Voids 4 # Bowel Movements 0 Weight On Admission 80.6 kg <Carlos Wilder E - Last Filed: 01/03/18 12:02> Results - Labs CBC & Chem 7: 01/03/18 07:59 01/03/18 07:59 Labs: Laboratory Results - last 24 hr 01/02/18 01/02/18 01/02/18 16:15 16:15 16:15 WBC 10.2 RBC 1.20 L Hgb 4.9 L* Hct 14.5 L* MCV 120.5 H MCH 41.2 H MCHC 34.2 RDW 22.2 H Plt Count 95 L MPV 7.8 Prelim Diff (Auto) Slide review pending Neut % (Auto) 92.9 H Lymph % (Auto) 2.3 L Colbert % (Auto) 4.8 Eos % (Auto) 0.0 Baso % (Auto) 0.0 Neut # (Auto) 9.5 H Lymph # (Auto) 0.2 L Colbert # (Auto) 0.5 Eos # (Auto) 0.0 Baso # (Auto) 0.0 WBC Differential Manual diff final Seg Neuts % (Manual) 96 H Lymphocytes % (Manual) 2 L Monocytes % (Manual) 1 Metamyelocytes % (Man) 1 Abs Neuts (Manual) 9.9 H Differential Comment . Platelet Estimate Low L Platelet Morphology Normal Acanthocytes (Spur) Occ H PT INR APTT Sodium 138 Potassium 4.7 Chloride 106 Carbon Dioxide 17.3 L Anion Gap 15 BUN 55 H Creatinine 1.39 H Estimated GFR 50 L Random Glucose 119 H Calcium 7.7 L Phosphorus Magnesium Total Bilirubin 0.3 AST 11 L ALT 11 L Alkaline Phosphatase 48 Total Protein 4.9 L Albumin 2.6 L Nasal Screen MRSA (PCR) Blood Type A Negative Antibody Screen Not Reportable Ab Screen Tube Method Negative Crossmatch See Detail Bld Prod Order Comment 01/02/18 01/03/18 01/03/18 20:15 07:59 07:59 WBC 11.1 H RBC 2.14 L Hgb 6.9 L* D Hct 20.8 L* MCV 97.3 D MCH 32.4 MCHC 33.3 RDW 30.1 H D Plt Count 73 L MPV 7.3 Prelim Diff (Auto) Slide review pending Neut % (Auto) 94.0 H Lymph % (Auto) 1.8 L Colbert % (Auto) 4.1 Eos % (Auto) 0.0 Baso % (Auto) 0.1 Neut # (Auto) 10.4 H Lymph # (Auto) 0.2 L Colbert # (Auto) 0.5 Eos # (Auto) 0.0 Baso # (Auto) 0.0 WBC Differential Seg Neuts % (Manual) Lymphocytes % (Manual) Monocytes % (Manual) Metamyelocytes % (Man) Abs Neuts (Manual) Differential Comment . Platelet Estimate Platelet Morphology Acanthocytes (Spur) PT 10.7 INR 1.1 APTT 20.5 L Sodium Potassium Chloride Carbon Dioxide Anion Gap BUN Creatinine Estimated GFR Random Glucose Calcium Phosphorus Magnesium Total Bilirubin AST ALT Alkaline Phosphatase Total Protein Albumin Nasal Screen MRSA (PCR) Not detected Blood Type Antibody Screen Ab Screen Tube Method Crossmatch Bld Prod Order Comment 01/03/18 07:59 WBC RBC Hgb Hct MCV MCH MCHC RDW Plt Count MPV Prelim Diff (Auto) Neut % (Auto) Lymph % (Auto) Colbert % (Auto) Eos % (Auto) Baso % (Auto) Neut # (Auto) Lymph # (Auto) Colbert # (Auto) Eos # (Auto) Baso # (Auto) WBC Differential Seg Neuts % (Manual) Lymphocytes % (Manual) Monocytes % (Manual) Metamyelocytes % (Man) Abs Neuts (Manual) Differential Comment Platelet Estimate Platelet Morphology Acanthocytes (Spur) PT INR APTT Sodium 141 Potassium 4.2 Chloride 111 H Carbon Dioxide 20.9 L Anion Gap 9 BUN 59 H Creatinine 1.01 Estimated GFR 73 L Random Glucose 152 H Calcium 7.5 L Phosphorus 4.2 Magnesium 2.1 Total Bilirubin 0.9 AST 9 L ALT 10 L Alkaline Phosphatase 41 L Total Protein 4.6 L Albumin 2.4 L Nasal Screen MRSA (PCR) Blood Type Antibody Screen Ab Screen Tube Method Crossmatch Bld Prod Order Comment - Imaging Impressions Chest CT 01/02/18 00:00 CONCLUSION: 1. No change in left axillary soft tissue density/mass. 2. Decrease in prominence of nodular densities in the left lung. Decrease in patchy right lung parenchymal opacity. 3. Degenerative findings of the thoracic spine and diffuse atherosclerotic disease again noted. Chest X-Ray 01/02/18 16:30 CONCLUSION: No acute cardiopulmonary disease. <ViecnteAcacia - Last Filed: 01/03/18 11:09> - Labs CBC & Chem 7: 01/03/18 07:59 01/03/18 07:59 Labs: Laboratory Results - last 24 hr 01/02/18 01/02/18 01/02/18 16:15 16:15 16:15 WBC 10.2 RBC 1.20 L Hgb 4.9 L* Hct 14.5 L* MCV 120.5 H MCH 41.2 H MCHC 34.2 RDW 22.2 H Plt Count 95 L MPV 7.8 Prelim Diff (Auto) Slide review pending Neut % (Auto) 92.9 H Lymph % (Auto) 2.3 L Colbert % (Auto) 4.8 Eos % (Auto) 0.0 Baso % (Auto) 0.0 Neut # (Auto) 9.5 H Lymph # (Auto) 0.2 L Colbert # (Auto) 0.5 Eos # (Auto) 0.0 Baso # (Auto) 0.0 WBC Differential Manual diff final Diff Scan Seg Neuts % (Manual) 96 H Lymphocytes % (Manual) 2 L Monocytes % (Manual) 1 Metamyelocytes % (Man) 1 Abs Neuts (Manual) 9.9 H Differential Comment . Platelet Estimate Low L Platelet Morphology Normal Dimorphic RBCs Acanthocytes (Spur) Occ H PT INR APTT Sodium 138 Potassium 4.7 Chloride 106 Carbon Dioxide 17.3 L Anion Gap 15 BUN 55 H Creatinine 1.39 H Estimated GFR 50 L Random Glucose 119 H Calcium 7.7 L Phosphorus Magnesium Total Bilirubin 0.3 AST 11 L ALT 11 L Alkaline Phosphatase 48 Total Protein 4.9 L Albumin 2.6 L Nasal Screen MRSA (PCR) Blood Type A Negative Antibody Screen Not Reportable Ab Screen Tube Method Negative Crossmatch See Detail MTS Gel Crossmatch Bld Prod Order Comment 01/02/18 01/03/18 01/03/18 20:15 07:59 07:59 WBC 11.1 H RBC 2.14 L Hgb 6.9 L* D Hct 20.8 L* MCV 97.3 D MCH 32.4 MCHC 33.3 RDW 30.1 H D Plt Count 73 L MPV 7.3 Prelim Diff (Auto) Slide review pending Neut % (Auto) 94.0 H Lymph % (Auto) 1.8 L Colbert % (Auto) 4.1 Eos % (Auto) 0.0 Baso % (Auto) 0.1 Neut # (Auto) 10.4 H Lymph # (Auto) 0.2 L Colbert # (Auto) 0.5 Eos # (Auto) 0.0 Baso # (Auto) 0.0 WBC Differential . Diff Scan Auto diff confirmed Seg Neuts % (Manual) Lymphocytes % (Manual) Monocytes % (Manual) Metamyelocytes % (Man) Abs Neuts (Manual) Differential Comment . Platelet Estimate Low L Platelet Morphology Normal Dimorphic RBCs Present H Acanthocytes (Spur) PT 10.7 INR 1.1 APTT 20.5 L Sodium Potassium Chloride Carbon Dioxide Anion Gap BUN Creatinine Estimated GFR Random Glucose Calcium Phosphorus Magnesium Total Bilirubin AST ALT Alkaline Phosphatase Total Protein Albumin Nasal Screen MRSA (PCR) Not detected Blood Type Antibody Screen Ab Screen Tube Method Crossmatch MTS Gel Crossmatch Bld Prod Order Comment 01/03/18 01/03/18 07:59 08:39 WBC RBC Hgb Hct MCV MCH MCHC RDW Plt Count MPV Prelim Diff (Auto) Neut % (Auto) Lymph % (Auto) Colbert % (Auto) Eos % (Auto) Baso % (Auto) Neut # (Auto) Lymph # (Auto) Colbert # (Auto) Eos # (Auto) Baso # (Auto) WBC Differential Diff Scan Seg Neuts % (Manual) Lymphocytes % (Manual) Monocytes % (Manual) Metamyelocytes % (Man) Abs Neuts (Manual) Differential Comment Platelet Estimate Platelet Morphology Dimorphic RBCs Acanthocytes (Spur) PT INR APTT Sodium 141 Potassium 4.2 Chloride 111 H Carbon Dioxide 20.9 L Anion Gap 9 BUN 59 H Creatinine 1.01 Estimated GFR 73 L Random Glucose 152 H Calcium 7.5 L Phosphorus 4.2 Magnesium 2.1 Total Bilirubin 0.9 AST 9 L ALT 10 L Alkaline Phosphatase 41 L Total Protein 4.6 L Albumin 2.4 L Nasal Screen MRSA (PCR) Blood Type Antibody Screen Ab Screen Tube Method Crossmatch MTS Gel Crossmatch See Detail Bld Prod Order Comment - Imaging Impressions Chest CT 01/02/18 00:00 CONCLUSION: 1. No change in left axillary soft tissue density/mass. 2. Decrease in prominence of nodular densities in the left lung. Decrease in patchy right lung parenchymal opacity. 3. Degenerative findings of the thoracic spine and diffuse atherosclerotic disease again noted. Chest X-Ray 01/02/18 16:30 CONCLUSION: No acute cardiopulmonary disease. <Carlos Wilder E - Last Filed: 01/03/18 12:02> Assessment and Plan - Plan - Profound anemia 4.9. - Likely multifactorial. 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 He had one episode of black stool over a week ago but stools have been brown since. He is on Xarelto for upper extremity DVT. He also takes 2 Advil daily. Patient had EGD/colonoscopy on ----> Two medium sized sessile polyps were found in the rectum; polypectomy was performed with a cold snare. The colon mucosa was otherwise normal; multiple biopsies were performed. Retroflexed views revealed internal hemorrhoids. Retroflexed views revealed medium internal hemorrhoids. Revealed no abnormalities of the rectum. Irregular z line, this was biopsied. There was erythematous gastritis in the gastric antrum; multiple biopsies were performed. Normal endoscopy otherwise. Normal duodenal mucosa. Retroflexed views revealed no abnormalities. Bx showed hyperplastic polyp, and Reaves, no histopathologic abnormalities. Pt received 4 units of blood and he is to receive one more unit. - PAULIE- possibly due to above - xh of squamous cell carcinoma with mets- receiving radiation - COPD - Hx of DVT, Xarelto on hold Plan: - NPO - EGD today - Consents - Cont. PPI - Monitor hh - Transfuse as needed - Supportive care - Pt seen and examined by dr. Wilder and myself and this note is written on his behalf. <Acacia Zhang - Last Filed: 01/03/18 11:09> - Attending Attestation Patient was seen and examined Agree with above Continue with current supportive care Monitor labs and transfuse as needed We will proceed with an EGD next Further recommendations she will depend on findings <Carlos Wilder E - Last Filed: 01/03/18 12:02>
[2018-01-03 09:37] LABS: Dimorphic RBC Present; Platelet Morphology Normal (Normal)
--- NOTE | 2018-01-03 10:09 | P.PNCC ---
Subjective Subjective Remarks/Hospital Course: Hospital Course: 72-year-old gentleman initially called paramedics for shortness of breath. He has COPD and still smokes. He is also fairly heavy drinker. He has history of metastatic cancer and is getting radiation therapy. He is due to start chemotherapy after the radiation treatments. He denies fever or chest pain. His symptoms have been exacerbated by his noncompliance with substance abuse recommendations. He does wear oxygen. In the emergency department his hemoglobin was found to be 4.9. He does admit some maroon and black stool. He is on Xarelto for upper extremity DVT. He has been transfused 4 units of PRBCs started in the emergency department and is admitted to ICU. Subjective: 01/03: was still receiving unit 3/4 this AM on my evaluation. apparently patient has antibodies to blood products and it has been exceedingly difficult to obtain type specific blood. recheck hgb has inappropriate response to blood products. GI eval and will scope today. patient subjectively feels improved from yesterday. Also, states that initially was DNR in ER, but has changed his mind and wishes to be Full Code, including CPR and intubation. Objective Vital Signs / I&O: Vital Signs 01/02/18 16:05 01/02/18 16:30 01/02/18 16:31 Temperature 37.1 C Pulse Rate 103 H 106 H Respiratory Rate 28 H 25 H Blood Pressure 101/57 L 120/90 Pulse Oximetry 98 98 97 01/02/18 17:31 01/02/18 17:40 01/02/18 18:00 Temperature Pulse Rate 104 H 108 H Respiratory Rate 24 16 Blood Pressure 101/57 L 106/50 L Pulse Oximetry 97 98 01/02/18 19:20 01/02/18 20:10 01/02/18 20:11 Temperature 37.3 C Pulse Rate 107 H 109 H 109 H Respiratory Rate 20 22 Blood Pressure 118/61 123/59 L Pulse Oximetry 98 01/02/18 20:52 01/02/18 21:00 01/02/18 21:04 Temperature 37.3 C Pulse Rate 117 H 107 H 102 H Respiratory Rate 27 H 26 H 20 Blood Pressure 95/60 L 94/52 L 95/61 L Pulse Oximetry 100 100 99 01/02/18 21:13 01/02/18 21:15 01/02/18 21:30 Temperature Pulse Rate 106 H 103 H 120 H Respiratory Rate 22 22 22 Blood Pressure 99/65 L 125/60 Pulse Oximetry 100 100 99 01/02/18 21:45 01/02/18 22:00 01/02/18 22:15 Temperature Pulse Rate 120 H 110 H 109 H Respiratory Rate 17 19 25 H Blood Pressure 97/53 L 112/62 102/54 L Pulse Oximetry 100 99 98 01/02/18 22:30 01/02/18 22:45 01/02/18 23:00 Temperature Pulse Rate 111 H 113 H 108 H Respiratory Rate 16 22 20 Blood Pressure 106/74 96/54 L 97/53 L Pulse Oximetry 96 97 97 01/02/18 23:15 01/02/18 23:30 01/02/18 23:31 Temperature Pulse Rate 109 H 104 H Respiratory Rate 26 H 15 17 Blood Pressure 101/56 L 99/56 L Pulse Oximetry 97 98 01/02/18 23:45 01/03/18 00:00 01/03/18 00:08 Temperature Pulse Rate 103 H 108 H 107 H Respiratory Rate 13 18 22 Blood Pressure 103/55 L 102/58 L Pulse Oximetry 99 100 01/03/18 00:15 01/03/18 00:30 01/03/18 00:43 Temperature 36.9 C 36.9 C Pulse Rate 113 H 107 H 101 H Respiratory Rate 31 H 14 18 Blood Pressure 80/64 L 102/58 L 102/58 L Pulse Oximetry 95 97 100 01/03/18 00:45 01/03/18 01:00 01/03/18 01:15 Temperature 36.9 C Pulse Rate 103 H 98 H 95 H Respiratory Rate 20 12 31 H Blood Pressure 97/53 L 99/58 L 102/59 L Pulse Oximetry 100 100 100 01/03/18 01:30 01/03/18 01:45 01/03/18 02:00 Temperature Pulse Rate 96 H 94 H 105 H Respiratory Rate 14 15 15 Blood Pressure 103/66 115/62 101/58 L Pulse Oximetry 98 99 99 01/03/18 02:15 01/03/18 02:30 01/03/18 02:45 Temperature Pulse Rate 94 H 95 H 92 H Respiratory Rate 12 13 16 Blood Pressure 109/59 L 128/64 130/64 Pulse Oximetry 98 100 100 01/03/18 02:54 01/03/18 03:00 01/03/18 03:05 Temperature 36.9 C 36.9 C Pulse Rate 93 H 93 H 96 H Respiratory Rate 14 17 16 Blood Pressure 130/64 126/73 126/73 Pulse Oximetry 100 100 100 01/03/18 03:15 01/03/18 03:30 01/03/18 03:45 Temperature 36.9 C Pulse Rate 91 H 94 H 90 Respiratory Rate 12 13 12 Blood Pressure 130/64 116/63 111/59 L Pulse Oximetry 99 99 100 01/03/18 04:00 01/03/18 04:14 01/03/18 04:15 Temperature 36.9 C Pulse Rate 93 H 91 H 93 H Respiratory Rate 21 22 25 H Blood Pressure 113/61 127/63 Pulse Oximetry 100 100 01/03/18 04:30 01/03/18 04:43 01/03/18 04:45 Temperature 36.6 C Pulse Rate 92 H 91 H 95 H Respiratory Rate 14 15 17 Blood Pressure 128/69 128/69 118/66 Pulse Oximetry 87 L 100 99 01/03/18 05:00 01/03/18 05:30 01/03/18 06:00 Temperature 36.7 C Pulse Rate 90 98 H 93 H Respiratory Rate 13 18 13 Blood Pressure 115/61 122/64 126/61 Pulse Oximetry 100 96 100 01/03/18 08:00 01/03/18 08:09 01/03/18 08:18 Temperature 36.6 C Pulse Rate 98 H 100 H 98 H Respiratory Rate 14 20 24 Blood Pressure 108/65 Pulse Oximetry 100 01/03/18 09:00 Temperature Pulse Rate 100 H Respiratory Rate Blood Pressure Pulse Oximetry Intake & Output 01/02/18 01/03/18 01/03/18 18:59 06:59 18:59 Intake Total 2850 / 2850 0 / 0 Output Total 1100 / 1100 Balance 1750 / 1750 0 / 0 Weight 82.554 kg 82.2 kg Intake: IV 1999 / 1999 NS Inj 1,000 ML @ 124 mls/hr IV 1000 / 1000 .CONT .Q8H4M KATIE Rx#:[id number] NS Inj 1,000 ML @ Wide Open IV. 1000 / 1000 SIG BOLUS ONE Rx#:[id number] Oral 50 / 50 Intake (Blood Product) Amt 800 / 800 0 / 0 Rbc As-3 Leukoreduced Unit 400 / 400 [id number] Rbc As-3 Leukoreduced Unit 400 / 400 0 / 0 [id number] Rbc As-3 Leukoreduced Unit 0 / 0 [id number] Rbc As-3 Leukoreduced Unit 0 / 0 [id number] Output: Urine 1100 / 1100 Emesis 0 / 0 Other: # Voids 4 # Bowel Movements 0 Weight On Admission 80.6 kg Result Diagrams: 01/03/18 07:59 01/03/18 07:59 Objective Remarks: GENERAL: Elderly male, sitting in bed, no acute distress HEENT: Normocephalic. Atraumatic. Pupils equal, round, reactive, conjugate. Mucous membranes are moist NECK: Trachea is midline. There is no JVD. CHEST: Equal chest rise. Nasal cannula oxygen. Unlabored. CARDIOVASCULAR: Normal rate, regular. Sinus. ABDOMEN: Soft, nontender, nondistended. No guarding. MUSCULOSKELETAL: Pulses 2+. No peripheral edema. Left upper extremity with radiation localization ailyn in place. Some evidence of skin changes suggestive of prior radiation. NEUROLOGICAL: RASS 0. GCS 15. No focal deficits. Assessment and Plan - Assessment and Plan Plan: Assessment: 72yM with metastatic squamous cell cancer of unknown primary, and active GI bleed. for endoscopic evaluation today. NPO and further plan based on GI scope. continue blood product administration for goal hgb > 7 or > 8 with active hemorrhagic shock evidence. remain in ICU until source of bleeding controlled. Active GI bleed Anemia secondary to acute GI bleeding, requiring transfusion -Hold Xarelto -ICU -Gastroenterology consultation -Protonix IV twice daily -Frequent labs -Transfuse 5 units PRBCs total so far. - endoscopy today. COPD -DuoNeb scheduled and as needed -Hold steroids at this time, no wheezing on physical exam -O2 nasal cannula to keep sats above 92 GERD -Protonix IV twice daily HTN -Hold home antihypertensive meds due to acute GI bleed -Resume when indicated High cholesterol -Atorvastatin Alcohol dependence -Monitor for withdrawal -CIWA meds if indicated Anxiety -Diazepam as needed Squamous cell carcinoma of unknown origin -Oncology consultation DVT GI prophylaxis -Teds SCDs -Protonix IV twice daily -No pharmacological DVT prophylaxis due to acute GI bleed
--- NOTE | 2018-01-03 12:11 | P.PCN ---
Date of procedure: 01/03/18 Pre-op diagnosis: Anemia Procedure: PROCEDURE PERFORMED EGD with biopsy and clip placement PROCEDURE: The procedure, risks and benefits were discussed with Patient/POA and informed consent was obtained. Anesthesia sedated Patient with Diprivan. Patient was placed in the left lateral decubitus position. EGD: The Pentax videoscope was introduced through the oropharynx and advanced to the second portion of the duodenum under direct visualization. Retroflexion was performed in the stomach. FINDINGS: The esophagus this appeared to be unremarkable and within normal limits The stomach there was a small hiatal hernia with a linear ulceration in the gastric cardia possibly representing a Romie ulcer no visible vessel no active bleeding this was biopsied the gastric mucosa appeared to be otherwise unremarkable The duodenum there were multiple ulcerations noted in the duodenal bulb and the descending duodenum most were superficial and clean based one was actively bleeding just distal to the ampulla a small vessel was noted and so a clip was placed and no further bleeding was noted biopsies were taken from the ulcer sites ESTIMATED BLOOD LOSS: None SPECIMENS REMOVED: Gastric and duodenal biopsies COMPLICATIONS: None IMPRESSION: Hiatal hernia Gastric ulcer possibly a Romie ulcer Duodenal ulcers PLAN: Await biopsies Avoid NSAIDs and aspirin Agree with current supportive care Monitor labs and transfuse as needed Continue PPI We will start with a clear liquid diet today and possibly advance as tolerated tomorrow if all is stable EGD in 2 months Anesthesia: MAC Surgeon: Carlos Wilder Condition: stable Disposition: floor
--- NOTE | 2018-01-03 15:14 | P.PNONC ---
Subjective Interval history: Afebrile. Patient remains slightly tachycardic. He is status post EGD today. Currently receiving 1 unit of PRBCs. He has no complaints at this time. He denies any obvious bleeding. He states "I have a bleeding ulcer apparently" He reports being hungry. Objective Vital Signs/Intake & Output: Vital Signs 01/02/18 16:05 01/02/18 16:30 01/02/18 16:31 Temperature 98.7 F Pulse Rate 103 H 106 H Respiratory Rate 28 H 25 H Blood Pressure 101/57 L 120/90 Pulse Oximetry 98 98 97 01/02/18 17:31 01/02/18 17:40 01/02/18 18:00 Temperature Pulse Rate 104 H 108 H Respiratory Rate 24 16 Blood Pressure 101/57 L 106/50 L Pulse Oximetry 97 98 01/02/18 19:20 01/02/18 20:10 01/02/18 20:11 Temperature 99.2 F Pulse Rate 107 H 109 H 109 H Respiratory Rate 20 22 Blood Pressure 118/61 123/59 L Pulse Oximetry 98 01/02/18 20:52 01/02/18 21:00 01/02/18 21:04 Temperature 99.2 F Pulse Rate 117 H 107 H 102 H Respiratory Rate 27 H 26 H 20 Blood Pressure 95/60 L 94/52 L 95/61 L Pulse Oximetry 100 100 99 01/02/18 21:13 01/02/18 21:15 01/02/18 21:30 Temperature Pulse Rate 106 H 103 H 120 H Respiratory Rate 22 22 22 Blood Pressure 99/65 L 125/60 Pulse Oximetry 100 100 99 01/02/18 21:45 01/02/18 22:00 01/02/18 22:15 Temperature Pulse Rate 120 H 110 H 109 H Respiratory Rate 17 19 25 H Blood Pressure 97/53 L 112/62 102/54 L Pulse Oximetry 100 99 98 01/02/18 22:30 01/02/18 22:45 01/02/18 23:00 Temperature Pulse Rate 111 H 113 H 108 H Respiratory Rate 16 22 20 Blood Pressure 106/74 96/54 L 97/53 L Pulse Oximetry 96 97 97 01/02/18 23:15 01/02/18 23:30 01/02/18 23:31 Temperature Pulse Rate 109 H 104 H Respiratory Rate 26 H 15 17 Blood Pressure 101/56 L 99/56 L Pulse Oximetry 97 98 01/02/18 23:45 01/03/18 00:00 01/03/18 00:08 Temperature Pulse Rate 103 H 108 H 107 H Respiratory Rate 13 18 22 Blood Pressure 103/55 L 102/58 L Pulse Oximetry 99 100 01/03/18 00:15 01/03/18 00:30 01/03/18 00:43 Temperature 98.5 F 98.5 F Pulse Rate 113 H 107 H 101 H Respiratory Rate 31 H 14 18 Blood Pressure 80/64 L 102/58 L 102/58 L Pulse Oximetry 95 97 100 01/03/18 00:45 01/03/18 01:00 01/03/18 01:15 Temperature 98.5 F Pulse Rate 103 H 98 H 95 H Respiratory Rate 20 12 31 H Blood Pressure 97/53 L 99/58 L 102/59 L Pulse Oximetry 100 100 100 01/03/18 01:30 01/03/18 01:45 01/03/18 02:00 Temperature Pulse Rate 96 H 94 H 105 H Respiratory Rate 14 15 15 Blood Pressure 103/66 115/62 101/58 L Pulse Oximetry 98 99 99 01/03/18 02:15 01/03/18 02:30 01/03/18 02:45 Temperature Pulse Rate 94 H 95 H 92 H Respiratory Rate 12 13 16 Blood Pressure 109/59 L 128/64 130/64 Pulse Oximetry 98 100 100 01/03/18 02:54 01/03/18 03:00 01/03/18 03:05 Temperature 98.5 F 98.5 F Pulse Rate 93 H 93 H 96 H Respiratory Rate 14 17 16 Blood Pressure 130/64 126/73 126/73 Pulse Oximetry 100 100 100 01/03/18 03:15 01/03/18 03:30 01/03/18 03:45 Temperature 98.5 F Pulse Rate 91 H 94 H 90 Respiratory Rate 12 13 12 Blood Pressure 130/64 116/63 111/59 L Pulse Oximetry 99 99 100 01/03/18 04:00 01/03/18 04:14 01/03/18 04:15 Temperature 98.5 F Pulse Rate 93 H 91 H 93 H Respiratory Rate 21 22 25 H Blood Pressure 113/61 127/63 Pulse Oximetry 100 100 01/03/18 04:30 01/03/18 04:43 01/03/18 04:45 Temperature 97.9 F Pulse Rate 92 H 91 H 95 H Respiratory Rate 14 15 17 Blood Pressure 128/69 128/69 118/66 Pulse Oximetry 87 L 100 99 01/03/18 05:00 01/03/18 05:30 01/03/18 06:00 Temperature 98.0 F Pulse Rate 90 98 H 93 H Respiratory Rate 13 18 13 Blood Pressure 115/61 122/64 126/61 Pulse Oximetry 100 96 100 01/03/18 07:00 01/03/18 08:00 01/03/18 08:09 Temperature 97.8 F Pulse Rate 97 H 121 H 100 H Respiratory Rate 16 17 20 Blood Pressure 132/65 108/65 Pulse Oximetry 100 100 100 01/03/18 08:18 01/03/18 09:00 01/03/18 10:00 Temperature 97.8 F Pulse Rate 98 H 105 H 102 H Respiratory Rate 24 16 17 Blood Pressure 108/65 119/71 124/68 Pulse Oximetry 98 100 01/03/18 10:55 01/03/18 11:09 01/03/18 11:33 Temperature 97.8 F 97.8 F 97.8 F Pulse Rate 101 H 102 H 96 H Respiratory Rate 17 18 18 Blood Pressure 124/68 129/75 Pulse Oximetry 95 95 01/03/18 12:00 01/03/18 12:05 01/03/18 12:20 Temperature 98 F 98.5 F Pulse Rate 100 H 111 H 102 H Respiratory Rate 17 19 19 Blood Pressure 157/84 H 168/77 H 145/71 H Pulse Oximetry 95 98 99 01/03/18 12:30 Temperature Pulse Rate 99 H Respiratory Rate 19 Blood Pressure 146/77 H Pulse Oximetry 99 Intake & Output 01/02/18 01/03/18 01/03/18 18:59 06:59 18:59 Intake Total 2850 / 2850 2049 Output Total 1100 / 1100 Balance 1750 / 1750 2049 Weight 82.554 kg 82.2 kg Intake: IV 1999 / 1999 1000 / 1000 NS Inj 1,000 ML @ 124 mls/hr IV 1000 / 1000 1000 / 1000 .CONT .Q8H4M HELEN Rx#:[id number] NS Inj 1,000 ML @ Wide Open IV. 1000 / 1000 SIG BOLUS ONE Rx#:[id number] Oral 50 / 50 Anesthesia Amount 250 / 250 Intake (Blood Product) Amt 800 / 800 800 / 800 Rbc As-3 Leukoreduced Unit 400 / 400 [id number] Rbc As-3 Leukoreduced Unit 400 / 400 0 / 0 [id number] Rbc As-3 Leukoreduced Unit 0 / 0 [id number] Rbc As-3 Leukoreduced Unit 400 / 400 [id number] Rbc As-3 Leukoreduced Unit 400 / 400 [id number] Output: Urine 1100 / 1100 Emesis 0 / 0 Other: # Voids 4 # Bowel Movements 0 Weight On Admission 80.6 kg Result Diagrams: 01/04/18 08:16 01/04/18 03:00 Laboratory Results: Laboratory Results - last 24 hr 01/02/18 01/02/18 01/02/18 16:15 16:15 16:15 WBC 10.2 RBC 1.20 L Hgb 4.9 L* Hct 14.5 L* MCV 120.5 H MCH 41.2 H MCHC 34.2 RDW 22.2 H Plt Count 95 L MPV 7.8 Prelim Diff (Auto) Slide review pending Neut % (Auto) 92.9 H Lymph % (Auto) 2.3 L Loving % (Auto) 4.8 Eos % (Auto) 0.0 Baso % (Auto) 0.0 Neut # (Auto) 9.5 H Lymph # (Auto) 0.2 L Loving # (Auto) 0.5 Eos # (Auto) 0.0 Baso # (Auto) 0.0 WBC Differential Manual diff final Diff Scan Seg Neuts % (Manual) 96 H Lymphocytes % (Manual) 2 L Monocytes % (Manual) 1 Metamyelocytes % (Man) 1 Abs Neuts (Manual) 9.9 H Differential Comment . Platelet Estimate Low L Platelet Morphology Normal Dimorphic RBCs Acanthocytes (Spur) Occ H PT INR APTT Sodium 138 Potassium 4.7 Chloride 106 Carbon Dioxide 17.3 L Anion Gap 15 BUN 55 H Creatinine 1.39 H Estimated GFR 50 L Random Glucose 119 H Calcium 7.7 L Phosphorus Magnesium Total Bilirubin 0.3 AST 11 L ALT 11 L Alkaline Phosphatase 48 Total Protein 4.9 L Albumin 2.6 L Nasal Screen MRSA (PCR) Blood Type A Negative Antibody Screen Not Reportable Ab Screen Tube Method Negative Crossmatch See Detail MTS Gel Crossmatch Bld Prod Order Comment 01/02/18 01/03/18 01/03/18 20:15 07:59 07:59 WBC 11.1 H RBC 2.14 L Hgb 6.9 L* D Hct 20.8 L* MCV 97.3 D MCH 32.4 MCHC 33.3 RDW 30.1 H D Plt Count 73 L MPV 7.3 Prelim Diff (Auto) Slide review pending Neut % (Auto) 94.0 H Lymph % (Auto) 1.8 L Loving % (Auto) 4.1 Eos % (Auto) 0.0 Baso % (Auto) 0.1 Neut # (Auto) 10.4 H Lymph # (Auto) 0.2 L Loving # (Auto) 0.5 Eos # (Auto) 0.0 Baso # (Auto) 0.0 WBC Differential . Diff Scan Auto diff confirmed Seg Neuts % (Manual) Lymphocytes % (Manual) Monocytes % (Manual) Metamyelocytes % (Man) Abs Neuts (Manual) Differential Comment . Platelet Estimate Low L Platelet Morphology Normal Dimorphic RBCs Present H Acanthocytes (Spur) PT 10.7 INR 1.1 APTT 20.5 L Sodium Potassium Chloride Carbon Dioxide Anion Gap BUN Creatinine Estimated GFR Random Glucose Calcium Phosphorus Magnesium Total Bilirubin AST ALT Alkaline Phosphatase Total Protein Albumin Nasal Screen MRSA (PCR) Not detected Blood Type Antibody Screen Ab Screen Tube Method Crossmatch MTS Gel Crossmatch Bld Prod Order Comment 01/03/18 01/03/18 07:59 08:39 WBC RBC Hgb Hct MCV MCH MCHC RDW Plt Count MPV Prelim Diff (Auto) Neut % (Auto) Lymph % (Auto) Loving % (Auto) Eos % (Auto) Baso % (Auto) Neut # (Auto) Lymph # (Auto) Loving # (Auto) Eos # (Auto) Baso # (Auto) WBC Differential Diff Scan Seg Neuts % (Manual) Lymphocytes % (Manual) Monocytes % (Manual) Metamyelocytes % (Man) Abs Neuts (Manual) Differential Comment Platelet Estimate Platelet Morphology Dimorphic RBCs Acanthocytes (Spur) PT INR APTT Sodium 141 Potassium 4.2 Chloride 111 H Carbon Dioxide 20.9 L Anion Gap 9 BUN 59 H Creatinine 1.01 Estimated GFR 73 L Random Glucose 152 H Calcium 7.5 L Phosphorus 4.2 Magnesium 2.1 Total Bilirubin 0.9 AST 9 L ALT 10 L Alkaline Phosphatase 41 L Total Protein 4.6 L Albumin 2.4 L Nasal Screen MRSA (PCR) Blood Type Antibody Screen Ab Screen Tube Method Crossmatch MTS Gel Crossmatch See Detail Bld Prod Order Comment Imaging Studies: Impressions Chest CT 01/02/18 00:00 CONCLUSION: 1. No change in left axillary soft tissue density/mass. 2. Decrease in prominence of nodular densities in the left lung. Decrease in patchy right lung parenchymal opacity. 3. Degenerative findings of the thoracic spine and diffuse atherosclerotic disease again noted. Chest X-Ray 01/02/18 16:30 CONCLUSION: No acute cardiopulmonary disease. Medications: Active Medications Generic Name Dose Route Start Last Admin Trade Name Freq PRN Reason Stop Dose Admin Albuterol 1 ampul 01/02/18 18:29 01/03/18 12:23 Duoneb Neb (Prn) NEB 1 ampul Q2HR NEB PRN Administration WHEEZING Albuterol 1 ampul 01/02/18 20:00 01/03/18 11:21 Duoneb Neb (Helen) NEB Not Given Q4HR NEB HELEN Atorvastatin Calcium 20 mg 01/02/18 21:00 01/02/18 21:16 Lipitor PO 20 mg HS HELEN Administration Chlorhexidine Gluconate 3 pack 01/03/18 04:00 01/03/18 03:10 Chlorhexidine 2% Cloth TOPICAL 01/08/18 03:59 3 pack DAILY@0400 HELEN Administration Sodium Chloride 1,000 mls @ 124 mls/hr 01/02/18 18:30 01/03/18 13:16 Ns Inj IV.CONT 124 mls/hr .Q8H4M HELEN Administration Sodium Chloride 250 mls @ 15 mls/hr 01/03/18 09:00 01/03/18 10:18 Ns Inj IV.SIG 01/04/18 01:39 15 mls/hr ONCE HELEN Administration Lorazepam 1 mg 01/02/18 21:00 01/03/18 08:13 Ativan PO 1 mg BID HELEN Administration Morphine Sulfate 2 mg 01/02/18 18:29 01/02/18 23:12 Morphine Inj IV.PUSH 2 mg Q2H PRN Administration PAIN SCALE 6 TO 10 Pantoprazole Sodium 40 mg 01/02/18 21:00 01/03/18 08:13 Protonix Inj IV.PUSH 40 mg Q12HR HELEN Administration Senna/Docusate Sodium 1 tab 01/02/18 21:00 01/03/18 08:14 Merced-Colace PO Not Given BID HELEN Sodium Chloride 2 ml 01/02/18 21:00 01/03/18 08:13 Ns Flush IV.FLUSH 2 ml BID HELEN Administration Objective Remarks: GENERAL: Elderly male patient, lying in bed, in no acute distress. SKIN: Warm and dry. LUE hardened, nodular s/p radiation. HEAD: Normocephalic. EYES: No scleral icterus. No injection or drainage. NECK: Supple, trachea midline. CARDIOVASCULAR: +S1/S2 without murmurs. RESPIRATORY: Breath sounds equal bilaterally. No accessory muscle use. GASTROINTESTINAL: Abdomen soft, non-tender, nondistended. EXTREMITIES: No cyanosis, or edema. MUSCULOSKELETAL: Adequate muscle tone. NEUROLOGICAL: No obvious focal deficit. Awake, alert, and oriented x3. PSYCHIATRIC: Appropriate mood and affect; insight and judgment normal. 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 He is currently receiving radiation therapy secondary to bleeding. Patient also has a past medical history of COPD , Barretts, EtOH and tobacco abuse. He presented to the emergency room with complaints of some maroon/black stool. He was on Xarelto for an upper extremity DVT. He was found to have a hemoglobin of 4.9. Plan: 1. Squamous cell carcinoma with metastasis to the left arm. Patient currently being treated with radiation. 2. History of upper extremity DVT. Xarelto currently on hold due to severe anemia and bleeding. 3. Status post EGD today. Patient was found to have a bleeding ulcer and this was clipped. 4. Anemia. Hemoglobin today 6.9, status post 4 units PRBC on 917. Patient currently receiving 1 unit of PRBC. Continue to monitor and transfuse as warranted. 5. Continue supportive care. - Attending Statement Patient seen and examined in the room after [employer]'s visit. Order DIC workup in view of severe anemia and thrombocytopenia. Reviewed EGD findings. Will follow up in the hospital.
[2018-01-03 15:32] LABS: Hematocrit 24.2 % (39.0-51.0); Hemoglobin 8.2 gm/dL (13.0-17.0)
--- NOTE | 2018-01-03 19:19 | ECG ---
Date Performed: 01/02/2018 Time Performed: 16:39:09 PTAGE: 72 years EKG: Sinus rhythm WITH SINUS ARRHYTHMIA NORMAL ECG PREVIOUS TRACING : 01/02/2018 16.37 Since the previous tracing, no significant change noted DOCTOR: Wendy Camp Interpretating Date/Time 01/04/2018 06:56:41
[2018-01-03 19:33] LABS: Hematocrit 29.7 % (39.0-51.0); Hemoglobin 9.8 gm/dL (13.0-17.0)
[2018-01-03 19:55] LABS: D-Dimer 1.68 mg/L FEU (0.00-0.50)
[2018-01-03] MEDS: Morphine Sulfate Inj 2 MG/ML Vial IV.PUSH PRN (21:44)
[2018-01-04 03:16] LABS: Hematocrit 25.7 % (39.0-51.0); Hemoglobin 8.8 gm/dL (13.0-17.0)
[2018-01-04] MEDS: Chlorhexidine Gluconate 2% 1 Pack (2 Cloths) TOPICAL SCH (03:40)
[2018-01-04 04:29] LABS: Albumin 2.2 g/dL (3.4-5.0); Calcium 7.3 mg/dL (8.5-10.1); Carbon Dioxide 19.7 meq/L (21.0-32.0); Magnesium 1.9 mg/dL (1.5-2.5); Phosphorus 3.8 mg/dL (2.5-4.9); Potassium 3.8 meq/L (3.5-5.1); Total Protein 4.2 g/dL (6.4-8.2)
[2018-01-04] MEDS: Sod Chloride 0.9% Inj 1,000 ML IV.CONT SCH ×3 (05:37→20:29)
[2018-01-04 06:51] LABS: Hematocrit 25.9 % (39.0-51.0); Hemoglobin 9.2 gm/dL (13.0-17.0); Mean Corpuscular HGB Conc 35.4 % (32.0-36.0); Mean Corpuscular Hemoglobin 32.9 pg (27.0-34.0); Mean Corpuscular Volume 92.8 fL (80.0-100.0); Mean Platelet Volume 6.9 fL (7.0-11.0); Platelet Count 54 th/mm3 (150-450); Red Blood Count 2.79 mil/mm3 (4.50-5.90); White Blood Count 9.2 th/mm3 (4.0-11.0)
[2018-01-04 08:26] LABS: Hematocrit 29.6 % (39.0-51.0); Hemoglobin 10.2 gm/dL (13.0-17.0)
[2018-01-04] MEDS: Pantoprazole Inj 40 MG Vial IV.PUSH SCH ×2 (08:40→20:29)
[2018-01-04] MEDS: Senna/Docusate Sodium 8.6/50 MG Tablet PO SCH (08:40)
[2018-01-04] MEDS: LORazepam 1 MG Tablet PO SCH ×2 (08:40→20:30)
--- NOTE | 2018-01-04 10:56 | P.PNIM ---
Subjective Interval history: says he feels a little better tolerating liquids. Physical Exam Vital signs: Vital Signs 01/03/18 10:55 01/03/18 11:09 01/03/18 11:33 Temperature 97.8 F 97.8 F 97.8 F Pulse Rate 101 H 102 H 96 H Respiratory Rate 17 18 18 Blood Pressure 124/68 129/75 Pulse Oximetry 95 95 01/03/18 12:00 01/03/18 12:05 01/03/18 12:20 Temperature 98 F 98.5 F Pulse Rate 100 H 111 H 102 H Respiratory Rate 17 19 19 Blood Pressure 157/84 H 168/77 H 145/71 H Pulse Oximetry 95 98 99 01/03/18 12:30 01/03/18 13:00 01/03/18 14:00 Temperature 98.1 F Pulse Rate 99 H 96 H 100 H Respiratory Rate 19 18 19 Blood Pressure 146/77 H 163/71 H 151/65 H Pulse Oximetry 99 98 99 01/03/18 15:00 01/03/18 16:00 01/03/18 16:19 Temperature Pulse Rate 106 H 116 H 110 H Respiratory Rate 18 17 16 Blood Pressure 143/74 H 155/70 H Pulse Oximetry 100 100 01/03/18 17:00 01/03/18 18:00 01/03/18 19:00 Temperature Pulse Rate 104 H 120 H 109 H Respiratory Rate 19 19 24 Blood Pressure 136/67 148/77 H 130/69 Pulse Oximetry 99 100 95 01/03/18 19:23 01/03/18 20:00 01/03/18 21:00 Temperature 98.9 F Pulse Rate 110 H 113 H 111 H Respiratory Rate 17 17 20 Blood Pressure 154/74 H 127/64 Pulse Oximetry 95 97 95 01/03/18 22:00 01/03/18 23:00 01/03/18 23:36 Temperature Pulse Rate 99 H 100 H 100 H Respiratory Rate 13 17 19 Blood Pressure 133/64 142/72 H Pulse Oximetry 97 95 01/04/18 00:00 01/04/18 01:00 01/04/18 02:00 Temperature 99.1 F Pulse Rate 101 H 100 H 98 H Respiratory Rate 16 17 18 Blood Pressure 153/78 H 138/70 140/68 Pulse Oximetry 95 97 96 01/04/18 03:00 01/04/18 04:00 01/04/18 04:17 Temperature 98.9 F Pulse Rate 105 H 94 H 94 H Respiratory Rate 24 14 17 Blood Pressure 136/99 H 151/80 H Pulse Oximetry 94 L 97 01/04/18 05:00 01/04/18 06:00 01/04/18 07:00 Temperature Pulse Rate 94 H 95 H 93 H Respiratory Rate 14 17 16 Blood Pressure 152/71 H 131/66 120/74 Pulse Oximetry 96 93 L 97 01/04/18 07:44 01/04/18 08:00 01/04/18 09:00 Temperature 98.4 F Pulse Rate 99 H 95 H 93 H Respiratory Rate 28 H 17 17 Blood Pressure 139/70 144/74 H Pulse Oximetry 100 98 100 Intake & Output 01/03/18 01/04/18 01/04/18 18:59 06:59 18:59 Intake Total 2680 / 2680 2400 / 2400 Output Total 650 / 650 650 / 650 Balance 2029 / 2030 1750 / 1750 Weight 82.2 kg Intake: IV 1150 / 1150 1999 NS Inj 1,000 ML @ 124 mls/hr IV 1000 / 1000 1999 / 1999 .CONT .[facility]8H4[facility] Rx#:[id number] NS Inj 250 ML @ 15 mls/hr IV. 150 / 150 SIG ONCE [facility] Rx#:[id number] Oral 480 / 480 400 / 400 Anesthesia Amount 250 / 250 Intake (Blood Product) Amt 800 / 800 Rbc As-3 Leukoreduced Unit 0 / 0 [id number] Rbc As-3 Leukoreduced Unit 400 / 400 [id number] Rbc As-3 Leukoreduced Unit 400 / 400 [id number] Output: Urine 650 / 650 650 / 650 Other: # Bowel Movements 0 heart reg lung cta abd s/nt ext left arm nodular areas of scc mets and area of ulceration and foul odor dc left chest wall nodular metastatic skin changes. Results - Labs CBC & Chem 7: 01/04/18 08:16 01/04/18 03:00 Laboratory Results - last 24 hr 01/02/18 01/03/18 01/03/18 16:15 08:39 14:48 WBC RBC Hgb 8.2 L Hct 24.2 L MCV MCH MCHC RDW Plt Count MPV Fibrinogen D-Dimer Quant (PE/DVT) Sodium Potassium Chloride Carbon Dioxide Anion Gap BUN Creatinine Estimated GFR Random Glucose Calcium Prot Corrected Calcium Phosphorus Magnesium Total Bilirubin AST ALT Alkaline Phosphatase Total Protein Albumin Crossmatch See Detail MTS Gel Crossmatch See Detail 01/03/18 01/03/18 01/04/18 19:01 19:01 03:00 WBC RBC Hgb 9.8 L 8.8 L Hct 29.7 L 25.7 L MCV MCH MCHC RDW Plt Count MPV Fibrinogen 194 L D-Dimer Quant (PE/DVT) 1.68 H Sodium Potassium Chloride Carbon Dioxide Anion Gap BUN Creatinine Estimated GFR Random Glucose Calcium Prot Corrected Calcium Phosphorus Magnesium Total Bilirubin AST ALT Alkaline Phosphatase Total Protein Albumin Crossmatch MTS Gel Crossmatch 01/04/18 01/04/18 01/04/18 03:00 06:34 08:16 WBC 9.2 RBC 2.79 L Hgb 9.2 L 10.2 L Hct 25.9 L 29.6 L MCV 92.8 D MCH 32.9 MCHC 35.4 RDW 25.0 H D Plt Count 54 L MPV 6.9 L Fibrinogen D-Dimer Quant (PE/DVT) Sodium 141 Potassium 3.8 Chloride 111 H Carbon Dioxide 19.7 L Anion Gap 10 BUN 47 H Creatinine 0.91 Estimated GFR 82 L Random Glucose 114 H Calcium 7.3 L* Prot Corrected Calcium 9.0 Phosphorus 3.8 Magnesium 1.9 Total Bilirubin 0.5 AST 13 L ALT 10 L Alkaline Phosphatase 44 L Total Protein 4.2 L Albumin 2.2 L Crossmatch MTS Gel Crossmatch Assessment and Plan - Assessment (1) Metastatic squamous cell carcinoma Code(s): C79.9 - Secondary malignant neoplasm of unspecified site Status: Acute Plan: Stage IV metastatic SCC undergoing chemo and XRT Radiation dermatitis - Pt is a 72 y/o WM with 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 iv abx to cover staph. local wound care Acute on chronic anemia. acute blood loss from gib. gastric and duodenal ulcerations etoh abuse 01/03: EGD: The esophagus this appeared to be unremarkable and within normal limits The stomach there was a small hiatal hernia with a linear ulceration in the gastric cardia possibly representing a Romie ulcer no visible vessel no active bleeding this was biopsied the gastric mucosa appeared to be otherwise unremarkable The duodenum there were multiple ulcerations noted in the duodenal bulb and the descending duodenum most were superficial and clean based one was actively bleeding just distal to the ampulla a small vessel was noted and so a clip was placed and no further bleeding was noted biopsies were taken from the ulcer sites diet advancement per gi monitor h/h. prn transfusion ppi bid COPD cont nebs and o2 (2) GIB (gastrointestinal bleeding) Code(s): K92.2 - Gastrointestinal hemorrhage, unspecified Status: Acute (3) Gastric ulceration Code(s): K25.9 - Gastric ulcer, unspecified as acute or chronic, without hemorrhage or perforation Status: Acute (4) Duodenal ulceration Code(s): K26.9 - Duodenal ulcer, unspecified as acute or chronic, without hemorrhage or perforation Status: Acute
[2018-01-04] MEDS: Morphine Sulfate Inj 2 MG/ML Vial IV.PUSH PRN (12:42)
--- NOTE | 2018-01-04 13:59 | P.PNONC ---
Subjective Interval history: Afebrile. Patient reports difficulty raising his left arm. He is status post radiation treatment to that arm, the last treatment he states was last Wednesday. He denies any bleeding. He is hoping that GI will advance his diet seen. He is tolerating clear liquids well Currently receiving breathing treatment. Objective Vital Signs/Intake & Output: Vital Signs 01/03/18 14:00 01/03/18 15:00 01/03/18 16:00 Temperature 98.1 F Pulse Rate 100 H 106 H 116 H Respiratory Rate 19 18 17 Blood Pressure 151/65 H 143/74 H 155/70 H Pulse Oximetry 99 100 100 01/03/18 16:19 01/03/18 17:00 01/03/18 18:00 Temperature Pulse Rate 110 H 104 H 120 H Respiratory Rate 16 19 19 Blood Pressure 136/67 148/77 H Pulse Oximetry 99 100 01/03/18 19:00 01/03/18 19:23 01/03/18 20:00 Temperature 98.9 F Pulse Rate 109 H 110 H 113 H Respiratory Rate 24 17 17 Blood Pressure 130/69 154/74 H Pulse Oximetry 95 95 97 01/03/18 21:00 01/03/18 22:00 01/03/18 23:00 Temperature Pulse Rate 111 H 99 H 100 H Respiratory Rate 20 13 17 Blood Pressure 127/64 133/64 142/72 H Pulse Oximetry 95 97 95 01/03/18 23:36 01/04/18 00:00 01/04/18 01:00 Temperature 99.1 F Pulse Rate 100 H 101 H 100 H Respiratory Rate 19 16 17 Blood Pressure 153/78 H 138/70 Pulse Oximetry 95 97 01/04/18 02:00 01/04/18 03:00 01/04/18 04:00 Temperature 98.9 F Pulse Rate 98 H 105 H 94 H Respiratory Rate 18 24 14 Blood Pressure 140/68 136/99 H 151/80 H Pulse Oximetry 96 94 L 97 01/04/18 04:17 01/04/18 05:00 01/04/18 06:00 Temperature Pulse Rate 94 H 94 H 95 H Respiratory Rate 17 14 17 Blood Pressure 152/71 H 131/66 Pulse Oximetry 96 93 L 01/04/18 07:00 01/04/18 07:44 01/04/18 08:00 Temperature 98.4 F Pulse Rate 93 H 99 H 95 H Respiratory Rate 16 28 H 17 Blood Pressure 120/74 139/70 Pulse Oximetry 97 100 98 01/04/18 09:00 01/04/18 10:00 01/04/18 11:00 Temperature Pulse Rate 93 H 92 H 91 H Respiratory Rate 17 16 16 Blood Pressure 144/74 H 139/88 102/56 L Pulse Oximetry 100 100 100 01/04/18 11:55 01/04/18 12:00 Temperature 97.7 F Pulse Rate 91 H 103 H Respiratory Rate 19 20 Blood Pressure 143/74 H Pulse Oximetry Intake & Output 01/03/18 01/04/18 01/04/18 18:59 06:59 18:59 Intake Total 2680 / 2680 2400 / 2400 1100 / 1100 Output Total 650 / 650 650 / 650 Balance 2029 / 2029 1750 / 1750 1100 / 1100 Weight 82.2 kg Intake: IV 1150 / 1150 2000 / 2000 1100 / 1100 NS Inj 1,000 ML @ 124 mls/hr IV 1000 / 1000 2000 / 2000 1000 / 1000 .CONT .Q8H4M [facility] Rx#:[id number] NS Inj 250 ML @ 15 mls/hr IV. 150 / 150 SIG ONCE [facility] Rx#:[id number] Ancef Inj 1,000 MG In NS Inj 100 / 100 100 ML @ 200 mls/hr IV.SIG Q8H [facility] Rx#:[id number] Oral 480 / 480 400 / 400 Anesthesia Amount 250 / 250 Intake (Blood Product) Amt 800 / 800 Rbc As-3 Leukoreduced Unit 0 / 0 [id number] Rbc As-3 Leukoreduced Unit 400 / 400 [id number] Rbc As-3 Leukoreduced Unit 400 / 400 [id number] Output: Urine 650 / 650 650 / 650 Other: # Bowel Movements 0 Result Diagrams: 01/04/18 08:16 01/04/18 03:00 Laboratory Results: Laboratory Results - last 24 hr 01/03/18 01/03/18 01/03/18 14:48 19:01 19:01 WBC RBC Hgb 8.2 L 9.8 L Hct 24.2 L 29.7 L MCV MCH MCHC RDW Plt Count MPV Fibrinogen 194 L D-Dimer Quant (PE/DVT) 1.68 H Sodium Potassium Chloride Carbon Dioxide Anion Gap BUN Creatinine Estimated GFR Random Glucose Calcium Prot Corrected Calcium Phosphorus Magnesium Total Bilirubin AST ALT Alkaline Phosphatase Total Protein Albumin 01/04/18 01/04/18 01/04/18 03:00 03:00 06:34 WBC 9.2 RBC 2.79 L Hgb 8.8 L 9.2 L Hct 25.7 L 25.9 L MCV 92.8 D MCH 32.9 MCHC 35.4 RDW 25.0 H D Plt Count 54 L MPV 6.9 L Fibrinogen D-Dimer Quant (PE/DVT) Sodium 141 Potassium 3.8 Chloride 111 H Carbon Dioxide 19.7 L Anion Gap 10 BUN 47 H Creatinine 0.91 Estimated GFR 82 L Random Glucose 114 H Calcium 7.3 L* Prot Corrected Calcium 9.0 Phosphorus 3.8 Magnesium 1.9 Total Bilirubin 0.5 AST 13 L ALT 10 L Alkaline Phosphatase 44 L Total Protein 4.2 L Albumin 2.2 L 01/04/18 08:16 WBC RBC Hgb 10.2 L Hct 29.6 L MCV MCH MCHC RDW Plt Count MPV Fibrinogen D-Dimer Quant (PE/DVT) Sodium Potassium Chloride Carbon Dioxide Anion Gap BUN Creatinine Estimated GFR Random Glucose Calcium Prot Corrected Calcium Phosphorus Magnesium Total Bilirubin AST ALT Alkaline Phosphatase Total Protein Albumin Medications: Active Medications Generic Name Dose Route Start Last Admin Trade Name Freq PRN Reason Stop Dose Admin Albuterol 1 ampul 01/02/18 18:29 01/03/18 12:23 Duoneb Neb (Prn) NEB 1 ampul Q2HR NEB PRN Administration WHEEZING Albuterol 1 ampul 01/02/18 20:00 01/04/18 11:55 Duoneb Neb (Helen) NEB 1 ampul Q4HR NEB [facility] Administration Atorvastatin Calcium 20 mg 01/02/18 21:00 01/03/18 21:31 Lipitor PO 20 mg HS [facility] Administration Chlorhexidine Gluconate 3 pack 01/03/18 04:00 01/04/18 03:40 Chlorhexidine 2% Cloth TOPICAL 01/08/18 03:59 3 pack DAILY@0400 [facility] Administration Sodium Chloride 1,000 mls @ 124 mls/hr 01/02/18 18:30 01/04/18 12:42 Ns Inj IV.CONT 124 mls/hr .Q8H4M [facility] Administration Cefazolin Sodium 1,000 mg/ 100 mls @ 200 mls/hr 01/04/18 12:00 01/04/18 13:13 Sodium Chloride IV.SIG Infused Q8H [facility] Infusion Lorazepam 1 mg 01/02/18 21:00 01/04/18 08:40 Ativan PO 1 mg BID [facility] Administration Morphine Sulfate 2 mg 01/02/18 18:29 01/04/18 12:42 Morphine Inj IV.PUSH 2 mg Q2H PRN Administration PAIN SCALE 6 TO 10 Pantoprazole Sodium 40 mg 01/02/18 21:00 01/04/18 08:40 Protonix Inj IV.PUSH 40 mg Q12HR [facility] Administration Sodium Chloride 2 ml 01/02/18 21:00 01/04/18 08:40 Ns Flush IV.FLUSH 2 ml BID [facility] Administration Objective Remarks: GENERAL: Elderly male patient, lying in bed, in no acute distress. SKIN: Warm and dry. LUE hardened, nodular skin s/p radiation, guaze drsg to forearm and upper arm. HEAD: Normocephalic. EYES: No scleral icterus. No injection or drainage. NECK: Supple, trachea midline. CARDIOVASCULAR: +S1/S2 without murmurs. RESPIRATORY: Breath sounds equal bilaterally. +breathing tx. GASTROINTESTINAL: Abdomen soft, non-tender, nondistended. EXTREMITIES: No cyanosis, or edema. MUSCULOSKELETAL: Adequate muscle tone. NEUROLOGICAL: No obvious focal deficit. Awake, alert, and oriented x3. PSYCHIATRIC: Appropriate mood and affect; insight and judgment normal. 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 He is currently receiving radiation therapy secondary to bleeding. Patient also has a past medical history of COPD , Barretts, EtOH and tobacco abuse. He presented to the emergency room with complaints of some maroon/black stool. He was on Xarelto for an upper extremity DVT. He was found to have a hemoglobin of 4.9. Plan: 1. Squamous cell carcinoma with metastasis to the left arm. Patient currently being treated with radiation. 2. History of upper extremity DVT. Xarelto currently on hold due to severe anemia and bleeding. 3. Status post EGD, bleeding ulcer clipped. 4. Anemia. Hemoglobin 10.2, status post 5 units PRBC on 01/03 & 01/14. DIC wkup : PT 10.7, INR 1.1, aPTT 20.5, fibrinogen 194 and D-dimer 1.68. 5. Continue to monitor for bleeding. 6. Repeat CBC in the a.m.
--- NOTE | 2018-01-04 17:50 | P.PNGI ---
Subjective Interval history: Patient is resting in the bed no obvious nausea vomiting or bleeding. No abdominal pain noted Current hemoglobin 10.2 <Shira Simons M - Last Filed: 01/04/18 17:55> Physical Exam Vital signs: Vital Signs 01/03/18 18:00 01/03/18 19:00 01/03/18 19:23 Temperature Pulse Rate 120 H 109 H 110 H Respiratory Rate 19 24 17 Blood Pressure 148/77 H 130/69 Pulse Oximetry 100 95 95 01/03/18 20:00 01/03/18 21:00 01/03/18 22:00 Temperature 98.9 F Pulse Rate 113 H 111 H 99 H Respiratory Rate 17 20 13 Blood Pressure 154/74 H 127/64 133/64 Pulse Oximetry 97 95 97 01/03/18 23:00 01/03/18 23:36 01/04/18 00:00 Temperature 99.1 F Pulse Rate 100 H 100 H 101 H Respiratory Rate 17 19 16 Blood Pressure 142/72 H 153/78 H Pulse Oximetry 95 95 01/04/18 01:00 01/04/18 02:00 01/04/18 03:00 Temperature Pulse Rate 100 H 98 H 105 H Respiratory Rate 17 18 24 Blood Pressure 138/70 140/68 136/99 H Pulse Oximetry 97 96 94 L 01/04/18 04:00 01/04/18 04:17 01/04/18 05:00 Temperature 98.9 F Pulse Rate 94 H 94 H 94 H Respiratory Rate 14 17 14 Blood Pressure 151/80 H 152/71 H Pulse Oximetry 97 96 01/04/18 06:00 01/04/18 07:00 01/04/18 07:44 Temperature Pulse Rate 95 H 93 H 99 H Respiratory Rate 17 16 28 H Blood Pressure 131/66 120/74 Pulse Oximetry 93 L 97 100 01/04/18 08:00 01/04/18 09:00 01/04/18 10:00 Temperature 98.4 F Pulse Rate 95 H 93 H 92 H Respiratory Rate 17 17 16 Blood Pressure 139/70 144/74 H 139/88 Pulse Oximetry 98 100 100 01/04/18 11:00 01/04/18 11:55 01/04/18 12:00 Temperature 97.7 F Pulse Rate 91 H 91 H 103 H Respiratory Rate 16 19 20 Blood Pressure 102/56 L 143/74 H Pulse Oximetry 100 09/18/18 15:43 01/04/18 16:00 Temperature 97.7 F Pulse Rate 90 86 Respiratory Rate 18 20 Blood Pressure 144/68 H Pulse Oximetry 93 L 96 Intake & Output 01/03/18 01/04/18 01/04/18 18:59 06:59 18:59 Intake Total 2680 / 2680 2400 / 2400 1100 / 1100 Output Total 650 / 650 650 / 650 Balance 2030 / 2030 1750 / 1750 1100 / 1100 Weight 82.2 kg Intake: IV 1150 / 1150 2000 / 2000 1100 / 1100 NS Inj 1,000 ML @ 124 mls/hr IV 1000 / 1000 2000 / 2000 1000 / 1000 .CONT .Q8H4M [facility] Rx#:[id number] NS Inj 250 ML @ 15 mls/hr IV. 150 / 150 SIG ONCE [facility] Rx#:[id number] Ancef Inj 1,000 MG In NS Inj 100 / 100 100 ML @ 200 mls/hr IV.SIG Q8H [facility] Rx#:[id number] Oral 480 / 480 400 / 400 Anesthesia Amount 250 / 250 Intake (Blood Product) Amt 800 / 800 Rbc As-3 Leukoreduced Unit 0 / 0 [id number] Rbc As-3 Leukoreduced Unit 400 / 400 [id number] Rbc As-3 Leukoreduced Unit 400 / 400 [id number] Output: Urine 650 / 650 650 / 650 Other: # Bowel Movements 0 - Constitutional no acute distress - Routine HEENT Exam Head: Present: normocephalic ENT: Present: mucous membranes moist - Routine Neck Exam Present: supple - Routine Respiratory Exam Present: accessory muscle use (Even, unlabored) - Routine Cardiovascular Exam Present: S1, S2 - Routine Abdominal Exam Present: soft, normoactive bowel sounds (Round,) - Routine Neurological Exam Present: alert <Shira Simons - Last Filed: 01/04/18 17:55> Vital signs: Vital Signs 01/03/18 22:00 01/03/18 23:00 01/03/18 23:36 Temperature Pulse Rate 99 H 100 H 100 H Respiratory Rate 13 17 19 Blood Pressure 133/64 142/72 H Pulse Oximetry 97 95 01/04/18 00:00 01/04/18 01:00 01/04/18 02:00 Temperature 99.1 F Pulse Rate 101 H 100 H 98 H Respiratory Rate 16 17 18 Blood Pressure 153/78 H 138/70 140/68 Pulse Oximetry 95 97 96 01/04/18 03:00 01/04/18 04:00 01/04/18 04:17 Temperature 98.9 F Pulse Rate 105 H 94 H 94 H Respiratory Rate 24 14 17 Blood Pressure 136/99 H 151/80 H Pulse Oximetry 94 L 97 01/04/18 05:00 01/04/18 06:00 01/04/18 07:00 Temperature Pulse Rate 94 H 95 H 93 H Respiratory Rate 14 17 16 Blood Pressure 152/71 H 131/66 120/74 Pulse Oximetry 96 93 L 97 01/04/18 07:44 01/04/18 08:00 01/04/18 09:00 Temperature 98.4 F Pulse Rate 99 H 95 H 93 H Respiratory Rate 28 H 17 17 Blood Pressure 139/70 144/74 H Pulse Oximetry 100 98 100 01/04/18 10:00 01/04/18 11:00 01/04/18 11:55 Temperature Pulse Rate 92 H 91 H 91 H Respiratory Rate 16 16 19 Blood Pressure 139/88 102/56 L Pulse Oximetry 100 100 01/04/18 12:00 01/04/18 15:43 01/04/18 16:00 Temperature 97.7 F 97.7 F Pulse Rate 103 H 90 86 Respiratory Rate 20 18 20 Blood Pressure 143/74 H 144/68 H Pulse Oximetry 93 L 96 01/04/18 20:00 01/04/18 20:56 Temperature 98.4 F Pulse Rate 105 H 88 Respiratory Rate 20 18 Blood Pressure 135/76 Pulse Oximetry 99 Intake & Output 01/04/18 01/04/18 01/05/18 06:59 18:59 06:59 Intake Total 2400 / 2400 1100 / 1100 1000 / 1000 Output Total 650 / 650 Balance 1750 / 1750 1100 / 1100 1000 / 1000 Weight 82.2 kg Intake: IV 1999 / 1999 1100 / 1100 1000 / 1000 NS Inj 1,000 ML @ 124 mls/hr IV 2000 / 1999 1000 / 1000 1000 / 1000 .CONT .Q8H4M [facility] Rx#:[id number] Ancef Inj 1,000 MG In NS Inj 100 / 100 100 ML @ 200 mls/hr IV.SIG Q8H [facility] Rx#:[id number] Oral 400 / 400 Output: Urine 650 / 650 <Carlos Wilder - Last Filed: 01/04/18 21:57> Results - Labs CBC & Chem 7: 01/04/18 08:16 01/04/18 03:00 Laboratory Results - last 24 hr 01/03/18 01/03/18 01/04/18 19:01 19:01 03:00 WBC RBC Hgb 9.8 L 8.8 L Hct 29.7 L 25.7 L MCV MCH MCHC RDW Plt Count MPV Fibrinogen 194 L D-Dimer Quant (PE/DVT) 1.68 H Sodium Potassium Chloride Carbon Dioxide Anion Gap BUN Creatinine Estimated GFR Random Glucose Calcium Prot Corrected Calcium Phosphorus Magnesium Total Bilirubin AST ALT Alkaline Phosphatase Total Protein Albumin 01/04/18 01/04/18 01/04/18 03:00 06:34 08:16 WBC 9.2 RBC 2.79 L Hgb 9.2 L 10.2 L Hct 25.9 L 29.6 L MCV 92.8 D MCH 32.9 MCHC 35.4 RDW 25.0 H D Plt Count 54 L MPV 6.9 L Fibrinogen D-Dimer Quant (PE/DVT) Sodium 141 Potassium 3.8 Chloride 111 H Carbon Dioxide 19.7 L Anion Gap 10 BUN 47 H Creatinine 0.91 Estimated GFR 82 L Random Glucose 114 H Calcium 7.3 L* Prot Corrected Calcium 9.0 Phosphorus 3.8 Magnesium 1.9 Total Bilirubin 0.5 AST 13 L ALT 10 L Alkaline Phosphatase 44 L Total Protein 4.2 L Albumin 2.2 L <Shira Simons - Last Filed: 01/04/18 17:55> - Labs CBC & Chem 7: 01/04/18 08:16 01/04/18 03:00 Laboratory Results - last 24 hr 01/04/18 01/04/18 01/04/18 03:00 03:00 06:34 WBC 9.2 RBC 2.79 L Hgb 8.8 L 9.2 L Hct 25.7 L 25.9 L MCV 92.8 D MCH 32.9 MCHC 35.4 RDW 25.0 H D Plt Count 54 L MPV 6.9 L Sodium 141 Potassium 3.8 Chloride 111 H Carbon Dioxide 19.7 L Anion Gap 10 BUN 47 H Creatinine 0.91 Estimated GFR 82 L Random Glucose 114 H Calcium 7.3 L* Prot Corrected Calcium 9.0 Phosphorus 3.8 Magnesium 1.9 Total Bilirubin 0.5 AST 13 L ALT 10 L Alkaline Phosphatase 44 L Total Protein 4.2 L Albumin 2.2 L 01/04/18 08:16 WBC RBC Hgb 10.2 L Hct 29.6 L MCV MCH MCHC RDW Plt Count MPV Sodium Potassium Chloride Carbon Dioxide Anion Gap BUN Creatinine Estimated GFR Random Glucose Calcium Prot Corrected Calcium Phosphorus Magnesium Total Bilirubin AST ALT Alkaline Phosphatase Total Protein Albumin <Sa Meñovince Burnette - Last Filed: 01/04/18 21:57> Assessment and Plan - Plan - Profound anemia 4.9. - Likely multifactorial. 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 He had one episode of black stool over a week ago but stools have been brown since. He is on Xarelto for upper extremity DVT. He also takes 2 Advil daily. Patient had EGD/colonoscopy on ----> Two medium sized sessile polyps were found in the rectum; polypectomy was performed with a cold snare. The colon mucosa was otherwise normal; multiple biopsies were performed. Retroflexed views revealed internal hemorrhoids. Retroflexed views revealed medium internal hemorrhoids. Revealed no abnormalities of the rectum. Irregular z line, this was biopsied. There was erythematous gastritis in the gastric antrum; multiple biopsies were performed. Normal endoscopy otherwise. Normal duodenal mucosa. Retroflexed views revealed no abnormalities. Bx showed hyperplastic polyp, and Reaves, no histopathologic abnormalities. Pt received 4 units of blood and he is to receive one more unit. - [facility]ULIE- possibly due to above - xh of squamous cell carcinoma with mets- receiving radiation - COPD - Hx of DVT, Xarelto on hold 01/04/2018 patient is status post EGD on 01/03/2018. Findings include hiatal hernia, gastric ulcer, duodenal ulcer , clip placement. Patient has tolerated clear liquids and diet has been advanced to cardiac diet. Encouraged again to avoid any NSAIDs, results discussed with patient. Blood thinners still on hold. Anemia, appears to be stable without any obvious bleeding, no BM noted today Plan Diet advance to cardiac nurse specialist labs with special attention to hemoglobin Monitor for any obvious bleeding Avoid NSAIDs PPI Zofran Plan for follow-up EGD in 2 months Supportive care Patient was seen per myself and Dr. Wilder, note was written on his behalf <Shira Simons M - Last Filed: 01/04/18 17:55> - Attending Attestation Patient seen and examined Agree with above Continue with current supportive care Monitor labs <Carlos Wilder - Last Filed: 01/04/18 21:57>
[2018-01-05] MEDS: Sod Chloride 0.9% Inj 1,000 ML IV.CONT SCH ×3 (04:51→20:32)
[2018-01-05] MEDS: Chlorhexidine Gluconate 2% 1 Pack (2 Cloths) TOPICAL SCH (04:52)
[2018-01-05 05:41] LABS: Hematocrit 24.1 % (39.0-51.0); Hemoglobin 8.3 gm/dL (13.0-17.0); Mean Corpuscular HGB Conc 34.4 % (32.0-36.0); Mean Corpuscular Hemoglobin 32.5 pg (27.0-34.0); Mean Corpuscular Volume 94.2 fL (80.0-100.0); Mean Platelet Volume 6.9 fL (7.0-11.0); Platelet Count 42 th/mm3 (150-450); Red Blood Count 2.55 mil/mm3 (4.50-5.90); Red Cell Distribution Width 24.6 % (11.6-17.2)
[2018-01-05] MEDS: Pantoprazole Inj 40 MG Vial IV.PUSH SCH ×2 (08:32→20:30)
[2018-01-05] MEDS: LORazepam 1 MG Tablet PO SCH ×2 (08:32→20:30)
[2018-01-05] MEDS: Morphine Sulfate Inj 2 MG/ML Vial IV.PUSH PRN (10:11)
--- NOTE | 2018-01-05 11:37 | P.PNIM ---
Subjective Interval history: Pt complains of pain in his left arm No BM in two days per the pt but this is not unusual for him +Flatus No nausea/vomiting, tolerating oral intake Physical Exam Vital signs: Vital Signs 01/04/18 11:55 01/04/18 12:00 01/04/18 15:43 Temperature 97.7 F Pulse Rate 91 H 103 H 90 Respiratory Rate 19 20 18 Blood Pressure 143/74 H Pulse Oximetry 93 L 01/04/18 16:00 01/04/18 20:00 01/04/18 20:56 Temperature 97.7 F 98.4 F Pulse Rate 86 105 H 88 Respiratory Rate 20 20 18 Blood Pressure 144/68 H 135/76 Pulse Oximetry 96 99 01/04/18 23:19 01/05/18 00:00 01/05/18 04:10 Temperature 97.6 F Pulse Rate 111 H 81 104 H Respiratory Rate 24 17 20 Blood Pressure 127/68 Pulse Oximetry 97 99 01/05/18 07:39 01/05/18 08:00 Temperature 98.0 F Pulse Rate 86 100 H Respiratory Rate 18 18 Blood Pressure 134/82 Pulse Oximetry 97 Intake & Output 01/04/18 01/05/18 01/05/18 18:59 06:59 18:59 Intake Total 1100 / 1100 2250 / 2250 Output Total 550 / 550 Balance 1100 / 1100 1700 / 1700 Intake: IV 1100 / 1100 2250 / 2250 NS Inj 1,000 ML @ 124 mls/hr IV 1000 / 1000 2000 / 2000 .CONT .Q8H4M [facility] Rx#:[id number] Ancef Inj 1,000 MG In NS Inj 100 / 100 200 / 200 100 ML @ 200 mls/hr IV.SIG Q8H [facility] Rx#:[id number] Output: Urine 550 / 550 Other: Date of Last Bowel Movement 01/02/18 01/02/18 Narrative: General: NAD, AAOx3 Skin: Left chest wall nodular metastatic skin changes. Chest: CTA Cardiac: Regular Abd: +BS, soft ND/Nt Ext: Left arm swelling, left arm nodular areas of scc mets and area of ulceration l Results - Labs CBC & Chem 7: 01/05/18 05:00 01/04/18 03:00 Laboratory Results - last 24 hr 01/05/18 05:00 WBC 6.0 RBC 2.55 L Hgb 8.3 L Hct 24.1 L MCV 94.2 MCH 32.5 MCHC 34.4 RDW 24.6 H Plt Count 42 L MPV 6.9 L - Imaging Chest CT 01/02/18 00:00 CONCLUSION: 1. No change in left axillary soft tissue density/mass. 2. Decrease in prominence of nodular densities in the left lung. Decrease in patchy right lung parenchymal opacity. 3. Degenerative findings of the thoracic spine and diffuse atherosclerotic disease again noted. Chest X-Ray 01/02/18 16:30 CONCLUSION: No acute cardiopulmonary disease. 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 - Cont. with Cefazolin to cover staph. - Local wound care Acute on chronic anemia. acute blood loss from gib. Gastric and duodenal ulcerations EtOH abuse - Pt underwent evaluation with EGD (01/03/18) - The esophagus this appeared to be unremarkable and within normal limits - Small hiatal hernia with a linear ulceration in the gastric cardia possibly representing a Romie ulcer, no visible vessel, no active bleeding this was biopsied - The duodenum there were multiple ulcerations noted in the duodenal bulb and the descending duodenum most were superficial and clean based one was actively bleeding just distal to the ampulla a small vessel was noted and so a clip was placed and no further bleeding was noted biopsies were taken from the ulcer sites - Pt tolerating advanced diet - H/H decreased today from 10.2/29.6 to 8.3/24.1 - Cont. Protonic 40mg Q12H COPD - Cont nebs and o2 (2) GIB (gastrointestinal bleeding) Code(s): K92.2 - Gastrointestinal hemorrhage, unspecified Status: Acute (3) Gastric ulceration Code(s): K25.9 - Gastric ulcer, unspecified as acute or chronic, without hemorrhage or perforation Status: Acute (4) Duodenal ulceration Code(s): K26.9 - Duodenal ulcer, unspecified as acute or chronic, without hemorrhage or perforation Status: Acute
--- NOTE | 2018-01-05 13:57 | P.PNONC ---
Subjective Interval history: Patient sitting in bed, in no acute distress. He denies any bleeding. He still has complaints of left arm pain especially if he tries to lift it. He also has pain at his mid left back region where he has a cancer lesion. Currently having to lay on his right side to keep pressure off the area. He reports wound care nurse was here for wound care of his left arm. Objective Vital Signs/Intake & Output: Vital Signs 01/04/18 15:43 01/04/18 16:00 01/04/18 20:00 Temperature 97.7 F 98.4 F Pulse Rate 90 86 105 H Respiratory Rate 18 20 20 Blood Pressure 144/68 H 135/76 Pulse Oximetry 93 L 96 99 01/04/18 20:56 01/04/18 23:19 01/05/18 00:00 Temperature 97.6 F Pulse Rate 88 111 H 81 Respiratory Rate 18 24 17 Blood Pressure 127/68 Pulse Oximetry 97 99 01/05/18 04:10 01/05/18 07:39 01/05/18 08:00 Temperature 98.0 F Pulse Rate 104 H 86 100 H Respiratory Rate 20 18 18 Blood Pressure 134/82 Pulse Oximetry 97 01/05/18 10:13 01/05/18 11:47 01/05/18 12:00 Temperature 97.6 F Pulse Rate 111 H 108 H Respiratory Rate 18 24 20 Blood Pressure 133/74 Pulse Oximetry 97 Intake & Output 01/04/18 01/05/18 01/05/18 18:59 06:59 18:59 Intake Total 1100 / 1100 2250 / 2250 Output Total 550 / 550 1400 / 1400 Balance 1100 / 1100 1700 / 1700 -1400 / -1400 Intake: IV 1100 / 1100 2250 / 2250 NS Inj 1,000 ML @ 124 mls/hr IV 1000 / 1000 2000 / 2000 .CONT .Q8H4M [facility] Rx#:[id number] Ancef Inj 1,000 MG In NS Inj 100 / 100 200 / 200 100 ML @ 200 mls/hr IV.SIG Q8H [facility] Rx#:[id number] Output: Urine 550 / 550 1400 / 1400 Other: Date of Last Bowel Movement 01/02/18 01/02/18 Result Diagrams: 01/05/18 05:00 01/04/18 03:00 Laboratory Results: Laboratory Results - last 24 hr 01/05/18 05:00 WBC 6.0 RBC 2.55 L Hgb 8.3 L Hct 24.1 L MCV 94.2 MCH 32.5 MCHC 34.4 RDW 24.6 H Plt Count 42 L MPV 6.9 L Medications: Active Medications Generic Name Dose Route Start Last Admin Trade Name Freq PRN Reason Stop Dose Admin Albuterol 1 ampul 01/02/18 18:29 01/03/18 12:23 Duoneb Neb (Prn) NEB 1 ampul Q2HR NEB PRN Administration WHEEZING Albuterol 1 ampul 01/02/18 20:00 01/05/18 11:46 Duoneb Neb (Helen) NEB 1 ampul Q4HR NEB [facility] Administration Atorvastatin Calcium 20 mg 01/02/18 21:00 01/04/18 20:30 Lipitor PO 20 mg HS [facility] Administration Chlorhexidine Gluconate 3 pack 01/03/18 04:00 01/05/18 04:52 Chlorhexidine 2% Cloth TOPICAL 01/08/18 03:59 Not Given DAILY@0400 [facility] Sodium Chloride 1,000 mls @ 124 mls/hr 01/02/18 18:30 01/05/18 04:51 Ns Inj IV.CONT 124 mls/hr .Q8H4M [facility] Administration Cefazolin Sodium 1,000 mg/ 100 mls @ 200 mls/hr 01/04/18 12:00 01/05/18 11:45 Sodium Chloride IV.SIG 200 mls/hr Q8H [facility] Administration Lorazepam 1 mg 01/02/18 21:00 01/05/18 08:32 Ativan PO 1 mg BID [facility] Administration Morphine Sulfate 2 mg 01/02/18 18:29 01/05/18 10:11 Morphine Inj IV.PUSH 2 mg Q2H PRN Administration PAIN SCALE 6 TO 10 Ondansetron HCl 4 mg 01/02/18 18:29 01/04/18 17:34 Zofran Inj IV.PUSH 4 mg Q6H PRN Administration NAUSEA OR VOMITING Pantoprazole Sodium 40 mg 01/02/18 21:00 01/05/18 08:32 Protonix Inj IV.PUSH 40 mg Q12HR [facility] Administration Sodium Chloride 2 ml 01/02/18 21:00 01/05/18 08:32 Ns Flush IV.FLUSH 2 ml BID [facility] Administration Objective Remarks: GENERAL: Elderly male patient, lying in bed, in no acute distress. SKIN: Warm and dry. LUE hardened, nodular skin s/p radiation, guaze drsg to forearm and upper arm, dry/intact. Nodular lesion to left mid back. HEAD: Normocephalic. EYES: No scleral icterus. No injection or drainage. NECK: Supple, trachea midline. CARDIOVASCULAR: +S1/S2 without murmurs. RESPIRATORY: Anterior breath sounds clear, equal bilaterally. Nonlabored. GASTROINTESTINAL: Abdomen soft, non-tender, nondistended. EXTREMITIES: No cyanosis, or edema. MUSCULOSKELETAL: Adequate muscle tone. NEUROLOGICAL: No obvious focal deficit. Awake, alert, and oriented x3. PSYCHIATRIC: Appropriate mood and affect; insight and judgment normal. . 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 He is currently receiving radiation therapy secondary to bleeding. Patient also has a past medical history of COPD , Barretts, EtOH and tobacco abuse. He presented to the emergency room with complaints of some maroon/black stool. He was on Xarelto for pulmonary embolism on 12/23/2016. He was found to have a hemoglobin of 4.9. Plan: 1. Squamous cell carcinoma with metastasis to the left arm. Patient currently being treated with radiation. He is going to ask radiation oncologist about the painful area to his left mid back. 2. History of pulmonary embolism on 12/23/2016. Xarelto currently on hold due to severe anemia and bleeding. 3. Status post EGD, bleeding ulcer clipped. 4. Anemia, trending down at 8.3 today. Status post 5 units pRBC transfusions on 01/03/18. 5. Continue to monitor for bleeding. 6. Repeat CBC in the a.m.
--- NOTE | 2018-01-05 13:59 | P.PNGI ---
Subjective Interval history: Patient awake alert, sitting up in bed eating lunch meal. He denies any nausea or vomiting, denies abdominal pain. Denies any noted bleeding. <Edith Quach - Last Filed: 01/05/18 14:04> Physical Exam Vital signs: Vital Signs 01/04/18 15:43 01/04/18 16:00 01/04/18 20:00 Temperature 97.7 F 98.4 F Pulse Rate 90 86 105 H Respiratory Rate 18 20 20 Blood Pressure 144/68 H 135/76 Pulse Oximetry 93 L 96 99 01/04/18 20:56 01/04/18 23:19 01/05/18 00:00 Temperature 97.6 F Pulse Rate 88 111 H 81 Respiratory Rate 18 24 17 Blood Pressure 127/68 Pulse Oximetry 97 99 01/05/18 04:10 01/05/18 07:39 01/05/18 08:00 Temperature 98.0 F Pulse Rate 104 H 86 100 H Respiratory Rate 20 18 18 Blood Pressure 134/82 Pulse Oximetry 97 01/05/18 10:13 01/05/18 11:47 01/05/18 12:00 Temperature 97.6 F Pulse Rate 111 H 108 H Respiratory Rate 18 24 20 Blood Pressure 133/74 Pulse Oximetry 97 Intake & Output 01/04/18 01/05/18 01/05/18 18:59 06:59 18:59 Intake Total 1100 / 1100 2250 / 2250 Output Total 550 / 550 1400 / 1400 Balance 1100 / 1100 1700 / 1700 -1400 / -1400 Intake: IV 1100 / 1100 2250 / 2250 NS Inj 1,000 ML @ 124 mls/hr IV 1000 / 1000 1999 / 1999 .CONT .Q8H4M [facility] Rx#:[id number] Ancef Inj 1,000 MG In NS Inj 100 / 100 200 / 200 100 ML @ 200 mls/hr IV.SIG Q8H [facility] Rx#:[id number] Output: Urine 550 / 550 1400 / 1400 Other: Date of Last Bowel Movement 01/02/18 01/02/18 - Constitutional no acute distress - Routine HEENT Exam Head: Present: normocephalic - Routine Neck Exam Present: supple - Routine Respiratory Exam Present: CTA bilaterally. Absent: accessory muscle use, respiratory distress - Routine Cardiovascular Exam Present: RRR - Routine Abdominal Exam Present: soft, normoactive bowel sounds. Absent: tenderness, guarding, firm Comments: no bm x 2 days. pt has active bowel sounds and agrees to take laxative if needed as ordered prn - Routine Extremities Exam Absent: clubbing Comments: Left upper extremity with gauze dressing in place and swelling present. 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 - Routine Skin Exam Present: dry, warm - Routine Neurological Exam Present: alert, oriented X3 - Routine Psychiatric Exam Present: normal affect, cooperative <Quach,Edith - Last Filed: 01/05/18 14:04> Vital signs: Vital Signs 01/04/18 23:19 01/05/18 00:00 01/05/18 04:10 Temperature 97.6 F Pulse Rate 111 H 81 104 H Respiratory Rate 24 17 20 Blood Pressure 127/68 Pulse Oximetry 97 99 01/05/18 07:39 01/05/18 08:00 01/05/18 10:13 Temperature 98.0 F Pulse Rate 86 100 H Respiratory Rate 18 18 18 Blood Pressure 134/82 Pulse Oximetry 97 01/05/18 11:47 01/05/18 12:00 01/05/18 15:22 Temperature 97.6 F 98.3 F Pulse Rate 111 H 108 H 107 H Respiratory Rate 24 20 20 Blood Pressure 133/74 136/72 Pulse Oximetry 97 97 01/05/18 15:46 01/05/18 19:22 Temperature Pulse Rate 107 H Respiratory Rate 20 Blood Pressure Pulse Oximetry 98 Intake & Output 01/05/18 01/05/18 01/06/18 06:59 18:59 06:59 Intake Total 2250 / 2250 1720 / 1720 1000 / 1000 Output Total 550 / 550 2049 Balance 1700 / 1700 -330 / -330 1000 / 1000 Intake: IV 2250 / 2250 1100 / 1100 1000 / 1000 NS Inj 1,000 ML @ 124 mls/hr IV 2000 / 2000 1000 / 1000 1000 / 1000 .CONT .Q8H4M [facility] Rx#:[id number] Ancef Inj 1,000 MG In NS Inj 200 / 200 100 / 100 100 ML @ 200 mls/hr IV.SIG Q8H [facility] Rx#:[id number] Oral 620 / 620 Output: Urine 550 / 550 2049 Other: Date of Last Bowel Movement 01/02/18 01/02/18 # Bowel Movements 0 <Carlos Wilder - Last Filed: 01/05/18 22:14> Results - Labs CBC & Chem 7: 01/05/18 05:00 01/04/18 03:00 Laboratory Results - last 24 hr 01/05/18 05:00 WBC 6.0 RBC 2.55 L Hgb 8.3 L Hct 24.1 L MCV 94.2 MCH 32.5 MCHC 34.4 RDW 24.6 H Plt Count 42 L MPV 6.9 L <Edith Quach - Last Filed: 01/05/18 14:04> - Labs CBC & Chem 7: 01/05/18 05:00 01/04/18 03:00 Laboratory Results - last 24 hr 01/05/18 01/05/18 01/05/18 05:00 17:36 17:36 WBC 6.0 RBC 2.55 L Hgb 8.3 L Hct 24.1 L MCV 94.2 MCH 32.5 MCHC 34.4 RDW 24.6 H Plt Count 42 L MPV 6.9 L Fibrinogen 401 H D-Dimer Quant (PE/DVT) 0.90 H <Carlos Wilder E - Last Filed: 01/05/18 22:14> Assessment and Plan - Plan - Profound anemia 4.9. - Likely multifactorial. 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 He had one episode of black stool over a week ago but stools have been brown since. He is on Xarelto for upper extremity DVT. He also takes 2 Advil daily. Patient had EGD/colonoscopy on ----> Two medium sized sessile polyps were found in the rectum; polypectomy was performed with a cold snare. The colon mucosa was otherwise normal; multiple biopsies were performed. Retroflexed views revealed internal hemorrhoids. Retroflexed views revealed medium internal hemorrhoids. Revealed no abnormalities of the rectum. Irregular z line, this was biopsied. There was erythematous gastritis in the gastric antrum; multiple biopsies were performed. Normal endoscopy otherwise. Normal duodenal mucosa. Retroflexed views revealed no abnormalities. Bx showed hyperplastic polyp, and Reaves, no histopathologic abnormalities. Pt received 4 units of blood and he is to receive one more unit. - PAULIE- possibly due to above - xh of squamous cell carcinoma with mets- receiving radiation - COPD - Hx of DVT, Xarelto on hold 01/04/2018 patient is status post EGD on 01/03/2018. Findings include hiatal hernia, gastric ulcer, duodenal ulcer , clip placement. Patient has tolerated clear liquids and diet has been advanced to cardiac diet. Encouraged again to avoid any NSAIDs, results discussed with patient. Blood thinners still on hold. Anemia, appears to be stable without any obvious bleeding, no BM noted today 01/05/18- Patient sitting up in bed eating lunch meal, denies nausea or vomiting and denies abdominal pain or any noted bleeding. Tolerating diet well. No bm x 2 -3 days. Lactulose ordered prn. AM labs reviewed HGB 8.3 and HCT 24.1. Plan -Cardiac diet -Monitor labs with special attention to hemoglobin -Monitor for any obvious bleeding -Avoid NSAIDs -Continue PPI -Zofran if needed -Supportive care Patient was seen per myself and Dr. Wilder, note was written on his behalf <Edith Quach - Last Filed: 01/05/18 14:04> - Plan Patient seen and examined Agree with above Continue with current supportive care Monitor labs No much to add from a GI perspective at this point we will sign off <Carlos Wilder - Last Filed: 01/05/18 22:14>
--- NOTE | 2018-01-05 14:21 | P.PNWCN ---
Wound Care Nurse Consult Description: Consult for left arm metastatic squamous cell carcinoma with radiation changes per Dr Bazzi Communicated with: Patient RAMSES Drake Recommendation: Cleanse wound on left forearm with wound cleanser daily. Apply Optifoam gentle and secure with rolled gauze and tape. Please do not place tape on skin. Additional information: Patient seen on for wound evaluation of left arm. Wound/Pressure Injury - Wound Left Forearm Wound Assessment: Ongoing Requested from Provider a Wound Care Consult: Yes Length: 3 (cm) Width: 9 (cm) Wound Bed Appearance: [place], Yellow Wound Bed Appearance: Cobblestone appearance with minimal sanguinous drainage noted when cleansing. Tissue in wound bed is dull yellow and pink and moist. Arm is edematous, hard, and warm. Surrounding Tissue Appearance: Edematous, Taut Surrounding Tissue Temperature: Warm Drainage Description: Yellow Drainage Amount: Moderate Drainage Odor: No Odor Dressing Status: Changed Cleansing Solution: Wound Cleanser Primary Dressing: Gauze Pad Cover Dressing: Gauze Roll/Wrap Tape Type: Transparent Wound Dressing Change Date: 01/05/18 - Additional Information With patient having radiation daily, normally, recommend daily cleansing and dressing changes after therapy.
[2018-01-06] MEDS: Sod Chloride 0.9% Inj 1,000 ML IV.CONT SCH ×2 (04:04→09:40)
[2018-01-06 05:01] LABS: Baso % (Auto) 0.1 % (0.0-2.0); Eos % (Auto) 0.6 % (0.0-4.0); Hematocrit 23.3 % (39.0-51.0); Hemoglobin 7.9 gm/dL (13.0-17.0); Lymph # (Auto) 0.3 th/mm3 (1.0-4.8); Lymph % (Auto) 5.2 % (9.0-44.0); Mean Corpuscular HGB Conc 34.2 % (32.0-36.0); Mean Corpuscular Hemoglobin 32.8 pg (27.0-34.0); Mean Corpuscular Volume 95.9 fL (80.0-100.0); Mean Platelet Volume 7.3 fL (7.0-11.0); Mono # (Auto) 0.2 th/mm3 (0.0-0.9); Mono % (Auto) 3.9 % (0.0-8.0); Neut % (Auto) 90.2 % (16.0-70.0); Platelet Count 38 th/mm3 (150-450); Red Blood Count 2.42 mil/mm3 (4.50-5.90); Red Cell Distribution Width 24.4 % (11.6-17.2); White Blood Count 5.5 th/mm3 (4.0-11.0)
[2018-01-06] MEDS: Chlorhexidine Gluconate 2% 1 Pack (2 Cloths) TOPICAL SCH (05:59)
[2018-01-06 06:05] LABS: Alanine Aminotransferase 8 U/L (12-78); Albumin 1.8 g/dL (3.4-5.0); Alkaline Phosphatase 52 U/L (45-117); Anion Gap 12 meq/L (5-15); Aspartate Aminotransferase 14 U/L (15-37); Blood Urea Nitrogen 14 mg/dL (7-18); Calcium 7.3 mg/dL (8.5-10.1); Carbon Dioxide 17.4 meq/L (21.0-32.0); Chloride 110 meq/L (98-107); Glomerular Filtration Rate Greater Than 89 mL/min (>89); Glucose,Random 102 mg/dL (74-106); Potassium 3.6 meq/L (3.5-5.1); Sodium 139 meq/L (136-145); Total Protein 4.2 g/dL (6.4-8.2)
[2018-01-06 08:02] LABS: Dimorphic RBC Present; Platelet Morphology Normal (Normal)
[2018-01-06] MEDS: Pantoprazole Inj 40 MG Vial IV.PUSH SCH ×2 (09:41→20:14)
[2018-01-06] MEDS: LORazepam 1 MG Tablet PO SCH ×2 (09:41→20:14)
--- NOTE | 2018-01-06 10:41 | XR ---
EXAM DATE: 01/06/2018 10:32 AM EDT AGE/SEX: 72 years / Male INDICATIONS: Short of breath. CLINICAL DATA: This is the patient's subsequent encounter. Patient reports that signs and symptoms h ave been present for 1 week and indicates a pain score of 2/10. MEDICAL/SURGICAL HISTORY: . Chronic obstructive pulmonary disease. Gastroesophageal reflux dise ase. Hypertension. Skin cancer. Lymphatic cancer. Bilateral hip surgery. Hernia repair. Infusaport . [place] [facility] [place]. . FINDINGS: The right internal jugular [id number] has its tip in superior vena cava. There is no pneumothorax. There is chronic elevation of the right hemidiaphragm. Bibasilar streakiness is noted consistent wit h atelectasis and/or mild infiltrates. The pulmonary vascular pattern is normal. The heart is stable. Degenerative changes are noted throughout the thoracic spine. CONCLUSION: 1. Bibasilar streakiness consistent with atelectasis and/or mild infiltrates. 2. Chronic elevation of the right hemidiaphragm. Electronically signed by: James Aceves MD 01/06/2018 10:40 AM EDT
[2018-01-06] MEDS ORDERED: MethylPREDNISolone Sod Succinate Inj 125 MG/2 ML Vial IV.PUSH ONE (11:15)
[2018-01-06] MEDS ORDERED: Acetaminophen 325 MG Tablet PO PRN (11:32)
--- NOTE | 2018-01-06 11:36 | P.PNONC ---
Subjective Interval history: Afebrile. Patient sitting in bed, RN at the bedside. Patient noted to have labored breathing. He states his breathing kept him up all night. No relief with breathing treatments. He feels this is worse than his typical COPD episodes. He just had chest x-ray. Patient's hemoglobin and platelets dropped again overnight. He has oozing of his right hand IV site, RN states it was infiltrated. He also has some blood- tinged oozing from his left forearm wounds. He denies any other bleeding. Denies vomiting, or abdominal pain. Objective Vital Signs/Intake & Output: Vital Signs 01/05/18 11:47 01/05/18 12:00 01/05/18 15:22 Temperature 97.6 F 98.3 F Pulse Rate 111 H 108 H 107 H Respiratory Rate 24 20 20 Blood Pressure 133/74 136/72 Pulse Oximetry 97 97 01/05/18 15:46 01/05/18 19:22 01/05/18 20:00 Temperature 97.9 F Pulse Rate 107 H 100 H Respiratory Rate 20 20 Blood Pressure 142/79 H Pulse Oximetry 98 97 01/06/18 00:00 01/06/18 00:02 01/06/18 01:53 Temperature 97.7 F Pulse Rate 113 H 110 H 112 H Respiratory Rate 20 20 22 Blood Pressure 141/82 H Pulse Oximetry 96 01/06/18 03:50 01/06/18 06:28 01/06/18 08:00 Temperature 97.9 F Pulse Rate 111 H 112 H 109 H Respiratory Rate 20 24 22 Blood Pressure 133/71 Pulse Oximetry 98 01/06/18 09:09 Temperature Pulse Rate 110 H Respiratory Rate 20 Blood Pressure Pulse Oximetry 99 Intake & Output 01/05/18 01/06/18 01/06/18 18:59 06:59 18:59 Intake Total 1720 / 1720 2200 / 2200 1000 / 1000 Output Total 2050 / 2050 650 / 650 Balance -330 / -330 1550 / 1550 1000 / 1000 Weight 89.2 kg Intake: IV 1100 / 1100 2200 / 2200 1000 / 1000 NS Inj 1,000 ML @ 124 mls/hr IV 1000 / 1000 2000 / 2000 1000 / 1000 .CONT .Q8H4M [facility] Rx#:[id number] Ancef Inj 1,000 MG In NS Inj 100 / 100 200 / 200 100 ML @ 200 mls/hr IV.SIG Q8H [facility] Rx#:[id number] Oral 620 / 620 Output: Urine 2049 / 2049 650 / 650 Other: Date of Last Bowel Movement 01/02/18 # Bowel Movements 0 Result Diagrams: 01/06/18 04:38 01/06/18 04:38 Laboratory Results: Laboratory Results - last 24 hr 01/05/18 01/05/18 01/06/18 17:36 17:36 04:38 WBC 5.5 RBC 2.42 L Hgb 7.9 L Hct 23.3 L MCV 95.9 MCH 32.8 MCHC 34.2 RDW 24.4 H Plt Count 38 L MPV 7.3 Prelim Diff (Auto) Slide review pending Neut % (Auto) 90.2 H Lymph % (Auto) 5.2 L Coleman % (Auto) 3.9 Eos % (Auto) 0.6 Baso % (Auto) 0.1 Neut # (Auto) 5.0 Lymph # (Auto) 0.3 L Coleman # (Auto) 0.2 Eos # (Auto) 0.0 Baso # (Auto) 0.0 WBC Differential . Diff Scan Auto diff confirmed Differential Comment . Platelet Estimate Low L Platelet Morphology Normal Dimorphic RBCs Present H Fibrinogen 401 H D-Dimer Quant (PE/DVT) 0.90 H Sodium Potassium Chloride Carbon Dioxide Anion Gap BUN Creatinine Estimated GFR Random Glucose Calcium Prot Corrected Calcium Total Bilirubin AST ALT Alkaline Phosphatase Total Protein Albumin 01/06/18 04:38 WBC RBC Hgb Hct MCV MCH MCHC RDW Plt Count MPV Prelim Diff (Auto) Neut % (Auto) Lymph % (Auto) Coleman % (Auto) Eos % (Auto) Baso % (Auto) Neut # (Auto) Lymph # (Auto) Coleman # (Auto) Eos # (Auto) Baso # (Auto) WBC Differential Diff Scan Differential Comment Platelet Estimate Platelet Morphology Dimorphic RBCs Fibrinogen D-Dimer Quant (PE/DVT) Sodium 139 Potassium 3.6 Chloride 110 H Carbon Dioxide 17.4 L Anion Gap 12 BUN 14 Creatinine 0.74 Estimated GFR Greater than 89 Random Glucose 102 Calcium 7.3 L* Prot Corrected Calcium 9.0 Total Bilirubin 0.4 AST 14 L ALT 8 L Alkaline Phosphatase 52 Total Protein 4.2 L Albumin 1.8 L Imaging Studies: Impressions Chest X-Ray 01/06/18 00:00 CONCLUSION: 1. Bibasilar streakiness consistent with atelectasis and/or mild infiltrates. 2. Chronic elevation of the right hemidiaphragm. Medications: Active Medications Generic Name Dose Route Start Last Admin Trade Name Freq PRN Reason Stop Dose Admin Albuterol 1 ampul 01/02/18 18:29 01/06/18 06:28 Duoneb Neb (Prn) NEB 1 ampul Q2HR NEB PRN Administration WHEEZING Albuterol 1 ampul 01/02/18 20:00 01/06/18 09:06 Duoneb Neb (Helen) NEB 1 ampul Q4HR NEB HELEN Administration Atorvastatin Calcium 20 mg 01/02/18 21:00 01/05/18 20:28 Lipitor PO 20 mg HS HELEN Administration Chlorhexidine Gluconate 3 pack 01/03/18 04:00 01/06/18 05:59 Chlorhexidine 2% Cloth TOPICAL 01/08/18 03:59 Not Given DAILY@0400 HELEN Cefazolin Sodium 1,000 mg/ 100 mls @ 200 mls/hr 01/04/18 12:00 01/06/18 04:34 Sodium Chloride IV.SIG Infused Q8H HELEN Infusion Lorazepam 1 mg 01/02/18 21:00 01/06/18 09:41 Ativan PO 1 mg BID HELEN Administration Morphine Sulfate 2 mg 01/02/18 18:29 01/05/18 10:11 Morphine Inj IV.PUSH 2 mg Q2H PRN Administration PAIN SCALE 6 TO 10 Ondansetron HCl 4 mg 01/02/18 18:29 01/04/18 17:34 Zofran Inj IV.PUSH 4 mg Q6H PRN Administration NAUSEA OR VOMITING Pantoprazole Sodium 40 mg 01/02/18 21:00 01/06/18 09:41 Protonix Inj IV.PUSH 40 mg Q12HR HELEN Administration Sodium Chloride 2 ml 01/02/18 21:00 01/06/18 09:41 Ns Flush IV.FLUSH 2 ml BID HELEN Administration Objective Remarks: GENERAL: Elderly male patient, sitting upright in bed, in no acute distress. SKIN: Warm and dry. LUE hardened, nodular skin s/p radiation, guaze drsg to forearm with bright red blood-tinged oozing. Upper arm, dry/intact. Nodular lesion to left mid back. HEAD: Normocephalic. EYES: No scleral icterus. No injection or drainage. NECK: Supple, trachea midline. CARDIOVASCULAR: +S1/S2 without murmurs. RESPIRATORY: Anterior breath sounds clear, equal bilaterally. Labored. GASTROINTESTINAL: Abdomen soft, non-tender, nondistended. EXTREMITIES: No cyanosis, or edema. MUSCULOSKELETAL: Adequate muscle tone. NEUROLOGICAL: No obvious focal deficit. Awake, alert, and oriented x3. PSYCHIATRIC: Appropriate mood and affect; insight and judgment normal. . 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 He is currently receiving radiation therapy secondary to bleeding. Patient also has a past medical history of COPD , Barretts, EtOH and tobacco abuse. He presented to the emergency room with complaints of some maroon/black stool. He was on Xarelto for pulmonary embolism on 12/23/2016. He was found to have a hemoglobin of 4.9. Plan: 1. Squamous cell carcinoma with metastasis to the left arm. Patient currently being treated with radiation. 2. History of pulmonary embolism on 12/23/2016. Xarelto currently on hold due to severe anemia and bleeding. 3. Status post EGD, bleeding ulcer clipped. 4. Hemoglobin and platelets continues to trend down. status post 5 units pRBC transfusions on 01/03/18. Hemoglobin 7.9, platelets 38K. Fibrinogen has increased to 401. D-dimer has improved. Will order stool Hemoccult. Continue to monitor for bleeding. Continue to hold anticoagulation. We will transfuse 1 unit of PRBCs today, patient symptomatic with tachycardia and labored breathing. 5. Continue to monitor for bleeding. Repeat CBC in the a.m. 6. Dyspnea, chest x-ray showed bibasilar streakiness consistent with atelectasis and/or mild infiltrates. Management per attending. - Attending Statement Pt without evidence of DIC but hb posssibly secondary to recent GI bleed. Patelets dropping without evidence of DIC. May need repeat BM bx. Will follow up.
[2018-01-06] MEDS ORDERED: Sodium Chlor 0.9% Inj 250 ML IV.SIG SCH (12:00)
[2018-01-06] MEDS ORDERED: Potassium Chloride 10 MEQ ER Capsule PO ONE (12:00)
--- NOTE | 2018-01-06 13:43 | P.PNIM ---
Subjective Interval history: Pt complains of SOB this morning. He feels that this is similar to when he has had problems with COPD exacerbations in the past Afebrile He reports that he did not sleep well last night due to significant acid reflux and belching. Physical Exam Vital signs: Vital Signs 01/05/18 15:22 01/05/18 15:46 01/05/18 19:22 Temperature 98.3 F Pulse Rate 107 H 107 H Respiratory Rate 20 20 Blood Pressure 136/72 Pulse Oximetry 97 98 01/05/18 20:00 01/06/18 00:00 01/06/18 00:02 Temperature 97.9 F 97.7 F Pulse Rate 100 H 113 H 110 H Respiratory Rate 20 20 20 Blood Pressure 142/79 H 141/82 H Pulse Oximetry 97 96 01/06/18 01:53 01/06/18 03:50 01/06/18 06:28 Temperature Pulse Rate 112 H 111 H 112 H Respiratory Rate 22 20 24 Blood Pressure Pulse Oximetry 01/06/18 08:00 01/06/18 09:09 01/06/18 11:55 Temperature 97.9 F Pulse Rate 109 H 110 H 66 Respiratory Rate 22 20 20 Blood Pressure 133/71 Pulse Oximetry 98 99 01/06/18 12:00 Temperature 98.0 F Pulse Rate 112 H Respiratory Rate 20 Blood Pressure 126/71 Pulse Oximetry 96 Intake & Output 01/05/18 01/06/18 01/06/18 18:59 06:59 18:59 Intake Total 1720 / 1720 2200 / 2200 1000 / 1000 Output Total 2049 650 / 650 Balance -330 / -330 1550 / 1550 1000 / 1000 Weight 89.2 kg Intake: IV 1100 / 1100 2200 / 2200 1000 / 1000 NS Inj 1,000 ML @ 124 mls/hr IV 1000 / 1000 2000 / 2000 1000 / 1000 .CONT .Q8H4M [facility] Rx#:[id number] Ancef Inj 1,000 MG In NS Inj 100 / 100 200 / 200 100 ML @ 200 mls/hr IV.SIG Q8H [facility] Rx#:[id number] Oral 620 / 620 Output: Urine 2049 650 / 650 Other: Date of Last Bowel Movement 01/02/18 # Bowel Movements 0 Narrative: General: NAD, AAOx3 Skin: Left chest wall nodular metastatic skin changes. Chest: Wheezing on the right side Cardiac: Regular Abd: +BS, soft ND/Nt Ext: Left arm swelling, left arm nodular areas of scc mets and area of ulceration l Results - Labs CBC & Chem 7: 01/06/18 04:38 01/06/18 04:38 Laboratory Results - last 24 hr 01/05/18 01/05/18 01/06/18 17:36 17:36 04:38 WBC 5.5 RBC 2.42 L Hgb 7.9 L Hct 23.3 L MCV 95.9 MCH 32.8 MCHC 34.2 RDW 24.4 H Plt Count 38 L MPV 7.3 Prelim Diff (Auto) Slide review pending Neut % (Auto) 90.2 H Lymph % (Auto) 5.2 L [place] % (Auto) 3.9 Eos % (Auto) 0.6 Baso % (Auto) 0.1 Neut # (Auto) 5.0 Lymph # (Auto) 0.3 L [place] # (Auto) 0.2 Eos # (Auto) 0.0 Baso # (Auto) 0.0 WBC Differential . Diff Scan Auto diff confirmed Differential Comment . Platelet Estimate Low L Platelet Morphology Normal Dimorphic RBCs Present H Fibrinogen 401 H D-Dimer Quant (PE/DVT) 0.90 H Sodium Potassium Chloride Carbon Dioxide Anion Gap BUN Creatinine Estimated GFR Random Glucose Calcium Prot Corrected Calcium Total Bilirubin AST ALT Alkaline Phosphatase Total Protein Albumin Blood Type MTS Gel Crossmatch 01/06/18 01/06/18 04:38 12:28 WBC RBC Hgb Hct MCV MCH MCHC RDW Plt Count MPV Prelim Diff (Auto) Neut % (Auto) Lymph % (Auto) Candler % (Auto) Eos % (Auto) Baso % (Auto) Neut # (Auto) Lymph # (Auto) Candler # (Auto) Eos # (Auto) Baso # (Auto) WBC Differential Diff Scan Differential Comment Platelet Estimate Platelet Morphology Dimorphic RBCs Fibrinogen D-Dimer Quant (PE/DVT) Sodium 139 Potassium 3.6 Chloride 110 H Carbon Dioxide 17.4 L Anion Gap 12 BUN 14 Creatinine 0.74 Estimated GFR Greater than 89 Random Glucose 102 Calcium 7.3 L* Prot Corrected Calcium 9.0 Total Bilirubin 0.4 AST 14 L ALT 8 L Alkaline Phosphatase 52 Total Protein 4.2 L Albumin 1.8 L Blood Type A Negative MTS Gel Crossmatch See Detail - Imaging Impressions Chest X-Ray 01/06/18 00:00 CONCLUSION: 1. Bibasilar streakiness consistent with atelectasis and/or mild infiltrates. 2. Chronic elevation of the right hemidiaphragm. 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 - Cont. with Cefazolin to cover staph. - Appreciate wound care recommendations Acute on chronic anemia. acute blood loss from gib. Gastric and duodenal ulcerations EtOH abuse - Pt underwent evaluation with EGD (01/03/18) - The esophagus this appeared to be unremarkable and within normal limits - Small hiatal hernia with a linear ulceration in the gastric cardia possibly representing a Romie ulcer, no visible vessel, no active bleeding this was biopsied - The duodenum there were multiple ulcerations noted in the duodenal bulb and the descending duodenum most were superficial and clean based one was actively bleeding just distal to the ampulla a small vessel was noted and so a clip was placed and no further bleeding was noted biopsies were taken from the ulcer sites - Pt tolerating advanced diet - H/H decreased again today from 10.2/29.6 (01/04)--> 8.3/24.1 (01/05) --> 7.9/ 23.3 (01/06) - Pt has one unit of blood ordered for today - Cont. Protonix 40mg Q12H - Add TUMS Q2H PRN - Monitor H/H closely and for any signs of active GIB COPD - Pt complained of SOB this morning - Chest X-Ray (01/06/18) 1. Bibasilar streakiness consistent with atelectasis and/or mild infiltrates. 2. Chronic elevation of the right hemidiaphragm. - Cont nebs and o2 - Add Solu-medrol 125mg x one dose and then 60mg Q6H - Give one time dose of Lasix 20mg and KCl 40meq - Monitor clinical status (2) GIB (gastrointestinal bleeding) Code(s): K92.2 - Gastrointestinal hemorrhage, unspecified Status: Acute (3) Gastric ulceration Code(s): K25.9 - Gastric ulcer, unspecified as acute or chronic, without hemorrhage or perforation Status: Acute (4) Duodenal ulceration Code(s): K26.9 - Duodenal ulcer, unspecified as acute or chronic, without hemorrhage or perforation Status: Acute
[2018-01-06] MEDS: MethylPREDNISolone Sod Succinate Inj 125 MG/2 ML Vial IV.PUSH SCH ×2 (17:51→23:08)
[2018-01-07] MEDS: MethylPREDNISolone Sod Succinate Inj 125 MG/2 ML Vial IV.PUSH SCH ×4 (04:26→23:02)
[2018-01-07] MEDS: Chlorhexidine Gluconate 2% 1 Pack (2 Cloths) TOPICAL SCH (04:34)
[2018-01-07 05:13] LABS: Lymph # (Auto) 0.1 th/mm3 (1.0-4.8); Lymph % (Auto) 2.9 % (9.0-44.0); Mean Corpuscular HGB Conc 34.1 % (32.0-36.0); Mean Corpuscular Hemoglobin 31.6 pg (27.0-34.0); Mean Corpuscular Volume 92.8 fL (80.0-100.0); Mean Platelet Volume 7.3 fL (7.0-11.0); Mono # (Auto) 0.1 th/mm3 (0.0-0.9); Mono % (Auto) 1.8 % (0.0-8.0); Neut # (Auto) 4.1 th/mm3 (1.8-7.7); Neut % (Auto) 95.3 % (16.0-70.0); Platelet Count 34 th/mm3 (150-450); Red Blood Count 2.18 mil/mm3 (4.50-5.90); Red Cell Distribution Width 25.8 % (11.6-17.2); White Blood Count 4.3 th/mm3 (4.0-11.0)
[2018-01-07 05:19] LABS: Hematocrit 20.3 % (39.0-51.0); Hemoglobin 6.9 gm/dL (13.0-17.0)
[2018-01-07 05:32] LABS: Anion Gap 11 meq/L (5-15); Blood Urea Nitrogen 36 mg/dL (7-18); Calcium 7.5 mg/dL (8.5-10.1); Carbon Dioxide 17.8 meq/L (21.0-32.0); Chloride 109 meq/L (98-107); Glomerular Filtration Rate Greater Than 89 mL/min (>89); Glucose,Random 159 mg/dL (74-106); Magnesium 1.6 mg/dL (1.5-2.5); Potassium 3.9 meq/L (3.5-5.1); Sodium 138 meq/L (136-145)
[2018-01-07 08:06] LABS: Platelet Morphology Normal (Normal)
--- NOTE | 2018-01-07 10:21 | P.PNGI ---
Subjective Interval history: Currently patient is resting in the bed oxygen, per nasal cannula mild dyspnea noted at rest but gradual improvement over the past 24 hours Reconsult this a.m. per hospitalist service due to patient's hemoglobin 6.9, which is a 1 g drop in the past 24 hours. Patient's Xarelto was still on hold and needs to be maintained on hold for now. Patient is status post initial EGD with clip on 01/03, and had been having his hemoglobin monitored over the past few days without any issues until today. Patient is awake alert answering simple questions and still has his appetite tolerating food without any nausea or vomiting and no abdominal pain patient is due for transfusion today 2 units. <Shira Simons - Last Filed: 01/07/18 10:21> Physical Exam Vital signs: Vital Signs 01/06/18 11:55 01/06/18 12:00 01/06/18 15:53 Temperature 98.0 F Pulse Rate 66 112 H 112 H Respiratory Rate 20 20 20 Blood Pressure 126/71 Pulse Oximetry 96 01/06/18 15:54 01/06/18 16:00 01/06/18 16:56 Temperature 98.6 F 98.6 F Pulse Rate 116 H 116 H Respiratory Rate 22 22 Blood Pressure 139/79 139/79 Pulse Oximetry 96 96 96 01/06/18 17:12 01/06/18 20:00 01/06/18 20:10 Temperature 98.5 F 99.3 F Pulse Rate 123 H 119 H Respiratory Rate 20 21 Blood Pressure 147/82 H 139/70 Pulse Oximetry 96 98 98 01/06/18 20:29 01/06/18 23:32 01/07/18 00:36 Temperature 97.8 F Pulse Rate 119 H 100 H 116 H Respiratory Rate 22 23 21 Blood Pressure 127/65 Pulse Oximetry 98 95 01/07/18 03:35 01/07/18 08:00 01/07/18 08:38 Temperature 97.6 F Pulse Rate 102 H 111 H 110 H Respiratory Rate 22 17 20 Blood Pressure 120/69 Pulse Oximetry 97 97 01/07/18 08:39 Temperature Pulse Rate Respiratory Rate Blood Pressure Pulse Oximetry 97 Intake & Output 01/06/18 01/07/18 01/07/18 18:59 06:59 18:59 Intake Total 2940 / 2940 1180 / 1180 Output Total 1725 / 1725 1080 / 1080 Balance 1215 / 1215 100 / 100 Weight 89 kg Intake: IV 1500 / 1500 200 / 200 NS Inj 1,000 ML @ 124 mls/hr IV 1400 / 1400 .CONT .Q8H4M KATIE Rx#:[id number] Ancef Inj 1,000 MG In NS Inj 100 / 100 200 / 200 100 ML @ 200 mls/hr IV.SIG Q8H KATIE Rx#:[id number] Oral 1440 / 1440 580 / 580 Intake (Blood Product) Amt 0 / 0 400 / 400 Rbc As-3 Leukoreduced Unit 0 / 0 400 / 400 [id number] Output: Urine 1725 / 1725 1080 / 1080 Other: Date of Last Bowel Movement 01/04/18 - Constitutional mild distress, obese, chronically ill appearing, disheveled - Routine HEENT Exam Head: Present: normocephalic ENT: Present: mucous membranes moist - Routine Respiratory Exam Present: accessory muscle use (Mild decreased breath sounds in low volumes mild dyspnea at rest but gradual improvement noted over the past 24 hours) - Routine Abdominal Exam Present: soft (Large, obese, no obvious abdominal pain, tenderness, or distention) - Routine Skin Exam Present: intact (Thin turgor with some ecchymosis, ) - Routine Neurological Exam Present: alert (Answering simple questions appropriately) <Shira Simons - Last Filed: 01/07/18 10:21> Vital signs: Vital Signs 01/06/18 20:00 01/06/18 20:10 01/06/18 20:29 Temperature 99.3 F Pulse Rate 119 H 119 H Respiratory Rate 21 22 Blood Pressure 139/70 Pulse Oximetry 98 98 01/06/18 20:45 01/06/18 23:32 01/07/18 00:36 Temperature 98.0 F 97.8 F Pulse Rate 119 H 100 H 116 H Respiratory Rate 18 23 21 Blood Pressure 115/56 L 127/65 Pulse Oximetry 97 98 95 01/07/18 03:35 01/07/18 08:00 01/07/18 08:38 Temperature 97.6 F Pulse Rate 102 H 111 H 110 H Respiratory Rate 22 17 20 Blood Pressure 120/69 Pulse Oximetry 97 97 01/07/18 08:39 01/07/18 12:00 09/21/18 12:45 Temperature 98.3 F Pulse Rate 101 H 100 H Respiratory Rate 19 19 Blood Pressure 113/71 Pulse Oximetry 97 97 01/07/18 12:54 01/07/18 16:00 01/07/18 16:07 Temperature 98.3 F 98.2 F Pulse Rate 101 H 112 H 80 Respiratory Rate 19 21 18 Blood Pressure 113/71 105/63 Pulse Oximetry 97 98 01/07/18 17:00 01/07/18 17:23 01/07/18 19:26 Temperature 99.4 F 98.7 F Pulse Rate 103 H 118 H Respiratory Rate 22 22 Blood Pressure 156/76 H 121/59 L Pulse Oximetry 98 94 L Intake & Output 01/07/18 01/07/18 01/08/18 06:59 18:59 06:59 Intake Total 1180 / 1180 1989 Output Total 1080 / 1080 Balance 100 / 100 1989 Weight 89 kg Intake: IV 200 / 200 150 / 150 NS Inj 250 ML @ 15 mls/hr IV. 50 / 50 SIG ONCE KATIE Rx#:[id number] Ancef Inj 1,000 MG In NS Inj 200 / 200 100 / 100 100 ML @ 200 mls/hr IV.SIG Q8H KATIE Rx#:[id number] Oral 580 / 580 1440 / 1440 Intake (Blood Product) Amt 400 / 400 400 / 400 Rbc As-3 Leukoreduced Unit 400 / 400 [id number] Rbc As-3 Leukoreduced Unit 0 / 0 [id number] Rbc As-3 Leukoreduced Unit 400 / 400 [id number] Output: Urine 1080 / 1080 Other: # Voids 5 Date of Last Bowel Movement 01/04/18 <Carlos Wilder E - Last Filed: 01/07/18 19:51> Results - Labs CBC & Chem 7: 01/07/18 04:18 01/07/18 04:18 Laboratory Results - last 24 hr 01/03/18 01/06/18 01/06/18 08:39 04:38 12:28 WBC RBC Hgb Hct MCV MCH MCHC RDW Plt Count MPV Prelim Diff (Auto) Neut % (Auto) Lymph % (Auto) [place]cleod % (Auto) Eos % (Auto) Baso % (Auto) Neut # (Auto) Lymph # (Auto) [place]cleod # (Auto) Eos # (Auto) Baso # (Auto) WBC Differential Diff Scan Differential Comment Platelet Estimate Platelet Morphology Sodium Potassium Chloride Carbon Dioxide Anion Gap BUN Creatinine Estimated GFR Random Glucose Calcium Magnesium Ferritin 453 H Blood Type A Negative Antibody Screen Negative MTS Gel Crossmatch See Detail See Detail Bld Prod Order Comment 01/07/18 01/07/18 01/07/18 04:18 04:18 05:54 WBC 4.3 RBC 2.18 L Hgb 6.9 L* Hct 20.3 L* MCV 92.8 MCH 31.6 MCHC 34.1 RDW 25.8 H Plt Count 34 L MPV 7.3 Prelim Diff (Auto) Slide review pending Neut % (Auto) 95.3 H Lymph % (Auto) 2.9 L Mcleod % (Auto) 1.8 Eos % (Auto) 0.0 Baso % (Auto) 0.0 Neut # (Auto) 4.1 Lymph # (Auto) 0.1 L Mcleod # (Auto) 0.1 Eos # (Auto) 0.0 Baso # (Auto) 0.0 WBC Differential . Diff Scan Auto diff confirmed Differential Comment . Platelet Estimate Low L Platelet Morphology Normal Sodium 138 Potassium 3.9 Chloride 109 H Carbon Dioxide 17.8 L Anion Gap 11 BUN 36 H Creatinine 0.71 Estimated GFR Greater than 89 Random Glucose 159 H Calcium 7.5 L Magnesium 1.6 Ferritin Blood Type Antibody Screen MTS Gel Crossmatch See Detail Bld Prod Order Comment 01/07/18 09:48 WBC RBC Hgb Hct MCV MCH MCHC RDW Plt Count MPV Prelim Diff (Auto) Neut % (Auto) Lymph % (Auto) [place]od % (Auto) Eos % (Auto) Baso % (Auto) Neut # (Auto) Lymph # (Auto) [place]od # (Auto) Eos # (Auto) Baso # (Auto) WBC Differential Diff Scan Differential Comment Platelet Estimate Platelet Morphology Sodium Potassium Chloride Carbon Dioxide Anion Gap BUN Creatinine Estimated GFR Random Glucose Calcium Magnesium Ferritin Blood Type Antibody Screen MTS Gel Crossmatch See Detail Bld Prod Order Comment - Imaging Impressions Chest X-Ray 01/06/18 00:00 CONCLUSION: 1. Bibasilar streakiness consistent with atelectasis and/or mild infiltrates. 2. Chronic elevation of the right hemidiaphragm. <Shira Simons - Last Filed: 09/21/18 10:21> - Labs CBC & Chem 7: 01/07/18 10:51 01/07/18 04:18 Laboratory Results - last 24 hr 01/06/18 01/07/18 01/07/18 12:28 04:18 04:18 WBC 4.3 RBC 2.18 L Hgb 6.9 L* Hct 20.3 L* MCV 92.8 MCH 31.6 MCHC 34.1 RDW 25.8 H Plt Count 34 L MPV 7.3 Prelim Diff (Auto) Slide review pending Neut % (Auto) 95.3 H Lymph % (Auto) 2.9 L Mcleod % (Auto) 1.8 Eos % (Auto) 0.0 Baso % (Auto) 0.0 Neut # (Auto) 4.1 Lymph # (Auto) 0.1 L Mcleod # (Auto) 0.1 Eos # (Auto) 0.0 Baso # (Auto) 0.0 WBC Differential . Diff Scan Auto diff confirmed Differential Comment . Platelet Estimate Low L Platelet Morphology Normal Sodium 138 Potassium 3.9 Chloride 109 H Carbon Dioxide 17.8 L Anion Gap 11 BUN 36 H Creatinine 0.71 Estimated GFR Greater than 89 Random Glucose 159 H Calcium 7.5 L Magnesium 1.6 MTS Gel Crossmatch See Detail Bld Prod Order Comment 01/07/18 01/07/18 01/07/18 05:54 09:48 10:51 WBC RBC Hgb 7.2 L Hct MCV MCH MCHC RDW Plt Count MPV Prelim Diff (Auto) Neut % (Auto) Lymph % (Auto) Mcleod % (Auto) Eos % (Auto) Baso % (Auto) Neut # (Auto) Lymph # (Auto) Mcleod # (Auto) Eos # (Auto) Baso # (Auto) WBC Differential Diff Scan Differential Comment Platelet Estimate Platelet Morphology Sodium Potassium Chloride Carbon Dioxide Anion Gap BUN Creatinine Estimated GFR Random Glucose Calcium Magnesium MTS Gel Crossmatch See Detail See Detail Bld Prod Order Comment <Carlos Wilder E - Last Filed: 01/07/18 19:51> Assessment and Plan - Plan 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 He had one episode of black stool over a week ago but stools have been brown since. He is on Xarelto for upper extremity DVT. He also takes 2 Advil daily. Patient had EGD/colonoscopy on ----> Two medium sized sessile polyps were found in the rectum; polypectomy was performed with a cold snare. The colon mucosa was otherwise normal; multiple biopsies were performed. Retroflexed views revealed internal hemorrhoids. Retroflexed views revealed medium internal hemorrhoids. Revealed no abnormalities of the rectum. Irregular z line, this was biopsied. There was erythematous gastritis in the gastric antrum; multiple biopsies were performed. Normal endoscopy otherwise. Normal duodenal mucosa. Retroflexed views revealed no abnormalities. Bx showed hyperplastic polyp, and Re[place], no histopathologic abnormalities. Pt received 4 units of blood and he is to receive one more unit. - PAULIE- possibly due to above - xh of squamous cell carcinoma with mets- receiving radiation - COPD - Hx of DVT, Xarelto on hold 01/04/2018 patient is status post EGD on 01/03/2018. Findings include hiatal hernia, gastric ulcer, duodenal ulcer , clip placement. Patient has tolerated clear liquids and diet has been advanced to cardiac diet. Encouraged again to avoid any NSAIDs, results discussed with patient. Blood thinners still on hold. Anemia, appears to be stable without any obvious bleeding, no BM noted today. Not much to add from a GI perspective and we signed off but please reconsult if needed. 01/07/2018 symptomatic anemia, decrease in hemoglobin 1 g over the past 24 hours from 7.9-6.9 this a.m. patient still has some mild shortness of breath noted but is being maintained on oxygen per nasal cannula. According to the hospitalist and record patient has had some gradual improvement of his shortness of breath over the past 24 hours. Gastroenterology was asked to re-see patient today and reevaluate low hemoglobin. Will go ahead and recheck hemoglobin this a.m. stat for verification, okay for transfusion this p.m. and we will plan to do EGD in the a.m. and reevaluate for possible GI bleeding. Initial plan was for follow-up with EGD in 2 months but will need reevaluation today. Plan Diet advance to cardiac, as tolerated Consent for EGD in a.m. N.p.o. at midnight Monitor labs with special attention to hemoglobin, transfusion today planned for 2 units Monitor for any obvious bleeding Avoid NSAIDs PPI Zofran Supportive care Patient was seen per myself and Dr. iWlder, note was written on his behalf <Shira Simons M - Last Filed: 01/07/18 10:21> - Plan Patient seen and examined Agree with above continue with current supportive care Monitor labs Plan on an EGD tomorrow Transfuse with 2 units of blood <Carlos Wilder - Last Filed: 01/07/18 19:51>
--- NOTE | 2018-01-07 10:40 | P.PNIM ---
Subjective Interval history: Pt has not had any melena or BRBPR. He has not had a BM in 3 days. Denies any abd pain Tolerating oral intake Breathing is slightly better today Physical Exam Vital signs: Vital Signs 01/06/18 11:55 01/06/18 12:00 01/06/18 15:53 Temperature 98.0 F Pulse Rate 66 112 H 112 H Respiratory Rate 20 20 20 Blood Pressure 126/71 Pulse Oximetry 96 01/06/18 15:54 01/06/18 16:00 01/06/18 16:56 Temperature 98.6 F 98.6 F Pulse Rate 116 H 116 H Respiratory Rate 22 22 Blood Pressure 139/79 139/79 Pulse Oximetry 96 96 96 01/06/18 17:12 01/06/18 20:00 01/06/18 20:10 Temperature 98.5 F 99.3 F Pulse Rate 123 H 119 H Respiratory Rate 20 21 Blood Pressure 147/82 H 139/70 Pulse Oximetry 96 98 98 01/06/18 20:29 01/06/18 23:32 01/07/18 00:36 Temperature 97.8 F Pulse Rate 119 H 100 H 116 H Respiratory Rate 22 23 21 Blood Pressure 127/65 Pulse Oximetry 98 95 01/07/18 03:35 01/07/18 08:00 01/07/18 08:38 Temperature 97.6 F Pulse Rate 102 H 111 H 110 H Respiratory Rate 22 17 20 Blood Pressure 120/69 Pulse Oximetry 97 97 01/07/18 08:39 Temperature Pulse Rate Respiratory Rate Blood Pressure Pulse Oximetry 97 Intake & Output 01/06/18 01/07/18 01/07/18 18:59 06:59 18:59 Intake Total 2940 / 2940 1180 / 1180 Output Total 1725 / 1725 1080 / 1080 Balance 1215 / 1215 100 / 100 Weight 89 kg Intake: IV 1500 / 1500 200 / 200 NS Inj 1,000 ML @ 124 mls/hr IV 1400 / 1400 .CONT .Q8H4M KATIE Rx#:[id number] Ancef Inj 1,000 MG In NS Inj 100 / 100 200 / 200 100 ML @ 200 mls/hr IV.SIG Q8H KATIE Rx#:[id number] Oral 1440 / 1440 580 / 580 Intake (Blood Product) Amt 0 / 0 400 / 400 Rbc As-3 Leukoreduced Unit 0 / 0 400 / 400 [id number] Output: Urine 1725 / 1725 1080 / 1080 Other: Date of Last Bowel Movement 01/04/18 Narrative: General: NAD, AAOx3 Skin: Left chest wall nodular metastatic skin changes. Chest: Wheezing on the right side, much improved Cardiac: Regular Abd: +BS, soft ND/Nt Ext: Left arm swelling, left arm nodular areas of scc mets and area of ulceration l Results - Labs CBC & Chem 7: 01/07/18 10:51 01/07/18 04:18 Laboratory Results - last 24 hr 01/03/18 01/06/18 01/06/18 08:39 04:38 12:28 WBC RBC Hgb Hct MCV MCH MCHC RDW Plt Count MPV Prelim Diff (Auto) Neut % (Auto) Lymph % (Auto) [place] % (Auto) Eos % (Auto) Baso % (Auto) Neut # (Auto) Lymph # (Auto) [place] # (Auto) Eos # (Auto) Baso # (Auto) WBC Differential Diff Scan Differential Comment Platelet Estimate Platelet Morphology Sodium Potassium Chloride Carbon Dioxide Anion Gap BUN Creatinine Estimated GFR Random Glucose Calcium Magnesium Ferritin 453 H Blood Type A Negative Antibody Screen Negative MTS Gel Crossmatch See Detail See Detail Bld Prod Order Comment 01/07/18 01/07/18 01/07/18 04:18 04:18 05:54 WBC 4.3 RBC 2.18 L Hgb 6.9 L* Hct 20.3 L* MCV 92.8 MCH 31.6 MCHC 34.1 RDW 25.8 H Plt Count 34 L MPV 7.3 Prelim Diff (Auto) Slide review pending Neut % (Auto) 95.3 H Lymph % (Auto) 2.9 L [place] % (Auto) 1.8 Eos % (Auto) 0.0 Baso % (Auto) 0.0 Neut # (Auto) 4.1 Lymph # (Auto) 0.1 L [place] # (Auto) 0.1 Eos # (Auto) 0.0 Baso # (Auto) 0.0 WBC Differential . Diff Scan Auto diff confirmed Differential Comment . Platelet Estimate Low L Platelet Morphology Normal Sodium 138 Potassium 3.9 Chloride 109 H Carbon Dioxide 17.8 L Anion Gap 11 BUN 36 H Creatinine 0.71 Estimated GFR Greater than 89 Random Glucose 159 H Calcium 7.5 L Magnesium 1.6 Ferritin Blood Type Antibody Screen MTS Gel Crossmatch See Detail Bld Prod Order Comment 01/07/18 09:48 WBC RBC Hgb Hct MCV MCH MCHC RDW Plt Count MPV Prelim Diff (Auto) Neut % (Auto) Lymph % (Auto) [place] % (Auto) Eos % (Auto) Baso % (Auto) Neut # (Auto) Lymph # (Auto) [place] # (Auto) Eos # (Auto) Baso # (Auto) WBC Differential Diff Scan Differential Comment Platelet Estimate Platelet Morphology Sodium Potassium Chloride Carbon Dioxide Anion Gap BUN Creatinine Estimated GFR Random Glucose Calcium Magnesium Ferritin Blood Type Antibody Screen MTS Gel Crossmatch See Detail Bld Prod Order Comment - Imaging Impressions Chest X-Ray 01/06/18 00:00 CONCLUSION: 1. Bibasilar streakiness consistent with atelectasis and/or mild infiltrates. 2. Chronic elevation of the right hemidiaphragm. 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 - Cont. with Cefazolin to cover staph. - Appreciate wound care recommendations Acute on chronic anemia. acute blood loss from gib. Gastric and duodenal ulcerations EtOH abuse - Pt underwent evaluation with EGD (01/03/18) - The esophagus this appeared to be unremarkable and within normal limits - Small hiatal hernia with a linear ulceration in the gastric cardia possibly representing a Romie ulcer, no visible vessel, no active bleeding this was biopsied - The duodenum there were multiple ulcerations noted in the duodenal bulb and the descending duodenum most were superficial and clean based one was actively bleeding just distal to the ampulla a small vessel was noted and so a clip was placed and no further bleeding was noted biopsies were taken from the ulcer sites - Pt tolerating advanced diet - H/H decreased again today from 10.2/29.6 (01/04)--> 8.3/24.1 (01/05) --> 7.9/ 23.3 (01/06) --> 6.9/20.3 (01/07) - Pt received one unit of blood last night. - Order 2 units PRBCs for today - Discussed the case with GI this morning, then plan for re-evaluation with EGD tomorrow - Cont. Protonix 40mg Q12H - TUMS Q2H PRN - Monitor H/H closely and for any signs of active GIB COPD - Pt complained of SOB this morning - Chest X-Ray (01/06/18) 1. Bibasilar streakiness consistent with atelectasis and/or mild infiltrates. 2. Chronic elevation of the right hemidiaphragm. - Cont nebs and o2 - Cont. Solu-Medrol 60mg Q6H - Pt was given one time dose of Lasix 20mg and KCl 40meq on 01/06 - Monitor clinical status The exam, history, and the medical decision-making described in the above note were completed with the assistance of the mid-level provider. I reviewed and agree with the findings presented. I attest that I had a [id number] encounter with the patient on the same day, and personally performed and documented my assessment and findings in the medical record. going for repeat egd due to hgb trending down. sob improved with nebs/steroid and one dose lasix.. wound care left arm. (2) GIB (gastrointestinal bleeding) Code(s): K92.2 - Gastrointestinal hemorrhage, unspecified Status: Acute (3) Gastric ulceration Code(s): K25.9 - Gastric ulcer, unspecified as acute or chronic, without hemorrhage or perforation Status: Acute (4) Duodenal ulceration Code(s): K26.9 - Duodenal ulcer, unspecified as acute or chronic, without hemorrhage or perforation Status: Acute
[2018-01-07] MEDS: Pantoprazole Inj 40 MG Vial IV.PUSH SCH ×2 (10:53→20:55)
[2018-01-07] MEDS: LORazepam 1 MG Tablet PO SCH ×2 (10:53→20:54)
[2018-01-07] MEDS: Morphine Sulfate Inj 2 MG/ML Vial IV.PUSH PRN ×2 (11:01→20:56)
--- NOTE | 2018-01-07 14:03 | P.PNONC ---
Subjective Interval history: Afebrile Pt reports his breathing is somewhat improved today Received 1 unit of blood yesterday Reports lesions are still painful to L flank Objective Vital Signs/Intake & Output: Vital Signs 01/06/18 15:53 01/06/18 15:54 01/06/18 16:00 Temperature 98.6 F Pulse Rate 112 H 116 H Respiratory Rate 20 22 Blood Pressure 139/79 Pulse Oximetry 96 96 01/06/18 16:56 01/06/18 17:12 01/06/18 20:00 Temperature 98.6 F 98.5 F 99.3 F Pulse Rate 116 H 123 H 119 H Respiratory Rate 22 20 21 Blood Pressure 139/79 147/82 H 139/70 Pulse Oximetry 96 96 98 01/06/18 20:10 01/06/18 20:29 01/06/18 20:45 Temperature 98.0 F Pulse Rate 119 H 119 H Respiratory Rate 22 18 Blood Pressure 115/56 L Pulse Oximetry 98 97 01/06/18 23:32 01/07/18 00:36 01/07/18 03:35 Temperature 97.8 F Pulse Rate 100 H 116 H 102 H Respiratory Rate 23 21 22 Blood Pressure 127/65 Pulse Oximetry 98 95 97 01/07/18 08:00 01/07/18 08:38 01/07/18 08:39 Temperature 97.6 F Pulse Rate 111 H 110 H Respiratory Rate 17 20 Blood Pressure 120/69 Pulse Oximetry 97 97 01/07/18 12:00 01/07/18 12:45 01/07/18 12:54 Temperature 98.3 F 98.3 F Pulse Rate 101 H 100 H 101 H Respiratory Rate 19 19 19 Blood Pressure 113/71 113/71 Pulse Oximetry 97 97 Intake & Output 01/06/18 01/07/18 01/07/18 18:59 06:59 18:59 Intake Total 2940 / 2940 1180 / 1180 100 / 100 Output Total 1725 / 1725 1080 / 1080 Balance 1215 / 1215 100 / 100 100 / 100 Weight 196 lb 3.382 oz Intake: IV 1500 / 1500 200 / 200 100 / 100 NS Inj 1,000 ML @ 124 mls/hr IV 1400 / 1400 .CONT .Q8H4M [facility] Rx#:[id number] Ancef Inj 1,000 MG In NS Inj 100 / 100 200 / 200 100 / 100 100 ML @ 200 mls/hr IV.SIG Q8H [facility] Rx#:[id number] Oral 1440 / 1440 580 / 580 Intake (Blood Product) Amt 0 / 0 400 / 400 0 / 0 Rbc As-3 Leukoreduced Unit 0 / 0 400 / 400 [id number] Rbc As-3 Leukoreduced Unit 0 / 0 [id number] Output: Urine 1725 / 1725 1080 / 1080 Other: Date of Last Bowel Movement 01/04/18 Result Diagrams: 01/07/18 10:51 01/07/18 04:18 Laboratory Results: Laboratory Results - last 24 hr 01/03/18 01/06/18 01/06/18 08:39 04:38 12:28 WBC RBC Hgb Hct MCV MCH MCHC RDW Plt Count MPV Prelim Diff (Auto) Neut % (Auto) Lymph % (Auto) [place] % (Auto) Eos % (Auto) Baso % (Auto) Neut # (Auto) Lymph # (Auto) [place] # (Auto) Eos # (Auto) Baso # (Auto) WBC Differential Diff Scan Differential Comment Platelet Estimate Platelet Morphology Sodium Potassium Chloride Carbon Dioxide Anion Gap BUN Creatinine Estimated GFR Random Glucose Calcium Magnesium Ferritin 453 H Blood Type A Negative Antibody Screen Negative MTS Gel Crossmatch See Detail See Detail Bld Prod Order Comment 01/07/18 01/07/18 01/07/18 04:18 04:18 05:54 WBC 4.3 RBC 2.18 L Hgb 6.9 L* Hct 20.3 L* MCV 92.8 MCH 31.6 MCHC 34.1 RDW 25.8 H Plt Count 34 L MPV 7.3 Prelim Diff (Auto) Slide review pending Neut % (Auto) 95.3 H Lymph % (Auto) 2.9 L [place] % (Auto) 1.8 Eos % (Auto) 0.0 Baso % (Auto) 0.0 Neut # (Auto) 4.1 Lymph # (Auto) 0.1 L [place] # (Auto) 0.1 Eos # (Auto) 0.0 Baso # (Auto) 0.0 WBC Differential . Diff Scan Auto diff confirmed Differential Comment . Platelet Estimate Low L Platelet Morphology Normal Sodium 138 Potassium 3.9 Chloride 109 H Carbon Dioxide 17.8 L Anion Gap 11 BUN 36 H Creatinine 0.71 Estimated GFR Greater than 89 Random Glucose 159 H Calcium 7.5 L Magnesium 1.6 Ferritin Blood Type Antibody Screen MTS Gel Crossmatch See Detail Bld Prod Order Comment 01/07/18 01/07/18 09:48 10:51 WBC RBC Hgb 7.2 L Hct MCV MCH MCHC RDW Plt Count MPV Prelim Diff (Auto) Neut % (Auto) Lymph % (Auto) [place] % (Auto) Eos % (Auto) Baso % (Auto) Neut # (Auto) Lymph # (Auto) [place] # (Auto) Eos # (Auto) Baso # (Auto) WBC Differential Diff Scan Differential Comment Platelet Estimate Platelet Morphology Sodium Potassium Chloride Carbon Dioxide Anion Gap BUN Creatinine Estimated GFR Random Glucose Calcium Magnesium Ferritin Blood Type Antibody Screen MTS Gel Crossmatch See Detail Bld Prod Order Comment Medications: Active Medications Generic Name Dose Route Start Last Admin Trade Name Freq PRN Reason Stop Dose Admin Albuterol 1 ampul 01/02/18 18:29 01/06/18 06:28 Duoneb Neb (Prn) NEB 1 ampul Q2HR NEB PRN Administration WHEEZING Albuterol 1 ampul 01/02/18 20:00 01/07/18 12:44 Duoneb Neb (Helen) NEB 1 ampul Q4HR NEB HELEN Administration Atorvastatin Calcium 20 mg 01/02/18 21:00 01/06/18 20:14 Lipitor PO 20 mg HS HELEN Administration Chlorhexidine Gluconate 3 pack 01/03/18 04:00 01/07/18 04:34 Chlorhexidine 2% Cloth TOPICAL 01/08/18 03:59 Not Given DAILY@0400 HELEN Cefazolin Sodium 1,000 mg/ 100 mls @ 200 mls/hr 01/04/18 12:00 01/07/18 13:11 Sodium Chloride IV.SIG Infused Q8H HELEN Infusion Lorazepam 1 mg 01/02/18 21:00 01/07/18 10:53 Ativan PO 1 mg BID HELEN Administration Methylprednisolone Sodium Succinate 60 mg 01/06/18 17:00 01/07/18 10:52 Solumedrol Inj IV.PUSH 60 mg Q6H HELEN Administration Morphine Sulfate 2 mg 01/02/18 18:29 01/07/18 11:01 Morphine Inj IV.PUSH 2 mg Q2H PRN Administration PAIN SCALE 6 TO 10 Ondansetron HCl 4 mg 01/02/18 18:29 01/04/18 17:34 Zofran Inj IV.PUSH 4 mg Q6H PRN Administration NAUSEA OR VOMITING Pantoprazole Sodium 40 mg 01/02/18 21:00 01/07/18 10:53 Protonix Inj IV.PUSH 40 mg Q12HR HELEN Administration Sodium Chloride 2 ml 01/02/18 21:00 01/07/18 10:53 Ns Flush IV.FLUSH 2 ml BID HELEN Administration Objective Remarks: GENERAL: Elderly male patient, sitting upright in bed, in no acute distress. SKIN: Warm and dry. LUE hardened, nodular skin s/p radiation, guaze drsg to forearm. No current oozing. Upper arm, dry/intact. Nodular lesion to left flank. HEAD: Normocephalic. EYES: No scleral icterus. No injection or drainage. NECK: Supple, trachea midline. CARDIOVASCULAR: +S1/S2 without murmurs. RESPIRATORY: Anterior breath sounds clear, equal bilaterally. Labored. GASTROINTESTINAL: Abdomen soft, non-tender, nondistended. EXTREMITIES: No cyanosis, or edema. MUSCULOSKELETAL: Adequate muscle tone. NEUROLOGICAL: No obvious focal deficit. Awake, alert, and oriented x3. 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 He is currently receiving radiation therapy secondary to bleeding. Patient also has a past medical history of COPD , Barretts, EtOH and tobacco abuse. He presented to the emergency room with complaints of some maroon/black stool. He was on Xarelto for pulmonary embolism on 12/23/2016. He was found to have a hemoglobin of 4.9. Plan: 1. Squamous cell carcinoma with metastasis to the left arm. Patient currently being treated with radiation. 2. History of pulmonary embolism on 12/23/2016. Xarelto currently on hold due to severe anemia and bleeding. 3. Status post EGD, bleeding ulcer clipped however hemoglobin continues to trend down. The patient received 1 unit packed red blood cells yesterday and still had drop in hemoglobin today. GI has been asked to come back and see the patient and they are planning to scope him again tomorrow. 4. Agree with 2 units packed red blood cells to be transfused today. Continue to hold Xarelto.
[2018-01-07 22:46] LABS: Hemoglobin 8.2 gm/dL (13.0-17.0)
[2018-01-08] MEDS ORDERED: Chlorhexidine Gluconate 2% 1 Pack (2 Cloths) TOPICAL ONE (00:21)
[2018-01-08] MEDS ORDERED: Sodium Chlor 0.9% Inj 500 ML IV.SIG SCH (01:00)
[2018-01-08] MEDS: MethylPREDNISolone Sod Succinate Inj 125 MG/2 ML Vial IV.PUSH SCH ×4 (05:37→22:37)
[2018-01-08] MEDS: LORazepam 1 MG Tablet PO SCH ×2 (08:28→20:40)
[2018-01-08] MEDS: Pantoprazole Inj 40 MG Vial IV.PUSH SCH ×2 (08:29→20:39)
[2018-01-08 08:33] LABS: Baso % (Auto) 0.1 % (0.0-2.0); Hemoglobin 9.2 gm/dL (13.0-17.0); Lymph # (Auto) 0.1 th/mm3 (1.0-4.8); Lymph % (Auto) 1.8 % (9.0-44.0); Mean Corpuscular HGB Conc 34.2 % (32.0-36.0); Mean Corpuscular Hemoglobin 30.3 pg (27.0-34.0); Mean Corpuscular Volume 88.5 fL (80.0-100.0); Mean Platelet Volume 7.1 fL (7.0-11.0); Mono # (Auto) 0.2 th/mm3 (0.0-0.9); Mono % (Auto) 4.1 % (0.0-8.0); Neut # (Auto) 5.6 th/mm3 (1.8-7.7); Platelet Count 35 th/mm3 (150-450); Red Blood Count 3.05 mil/mm3 (4.50-5.90); Red Cell Distribution Width 19.8 % (11.6-17.2)
[2018-01-08 08:58] LABS: Anion Gap 11 meq/L (5-15); Blood Urea Nitrogen 42 mg/dL (7-18); Calcium 7.7 mg/dL (8.5-10.1); Carbon Dioxide 20.2 meq/L (21.0-32.0); Chloride 110 meq/L (98-107); Glomerular Filtration Rate Greater Than 89 mL/min (>89); Glucose,Random 162 mg/dL (74-106); Potassium 3.5 meq/L (3.5-5.1); Sodium 141 meq/L (136-145)
[2018-01-08 09:12] LABS: Ovalocytes 1+; Platelet Morphology Normal (Normal)
--- NOTE | 2018-01-08 09:57 | P.PNIM ---
Subjective Interval history: Pt feels that his breathing is the same today as it was yesterday He has still not had a BM but +flatus Denies any abd pain Less reflux overnight Physical Exam Vital signs: Vital Signs 01/07/18 12:00 01/07/18 12:45 01/07/18 12:54 Temperature 98.3 F 98.3 F Pulse Rate 101 H 100 H 101 H Respiratory Rate 19 19 19 Blood Pressure 113/71 113/71 Pulse Oximetry 97 97 01/07/18 16:00 01/07/18 16:07 01/07/18 17:00 Temperature 98.2 F 99.4 F Pulse Rate 112 H 80 103 H Respiratory Rate 21 18 22 Blood Pressure 105/63 156/76 H Pulse Oximetry 98 98 01/07/18 17:23 01/07/18 19:26 01/07/18 20:00 Temperature 98.7 F 98.2 F Pulse Rate 118 H 109 H Respiratory Rate 22 20 Blood Pressure 121/59 L 115/61 Pulse Oximetry 94 L 96 01/08/18 00:00 01/08/18 00:40 01/08/18 02:17 Temperature 98.6 F 97.8 F Pulse Rate 104 H 92 H 108 H Respiratory Rate 18 30 H 21 Blood Pressure 119/63 124/63 Pulse Oximetry 96 95 94 L 01/08/18 02:35 01/08/18 03:13 01/08/18 04:45 Temperature 97.5 F L 96.9 F L Pulse Rate 98 H 102 H 101 H Respiratory Rate 20 25 H 21 Blood Pressure 119/64 128/64 Pulse Oximetry 94 L 99 01/08/18 07:34 01/08/18 08:00 Temperature 97.3 F L Pulse Rate 112 H 110 H Respiratory Rate 16 17 Blood Pressure 136/77 Pulse Oximetry 94 L 95 Intake & Output 01/07/18 01/08/18 01/08/18 18:59 06:59 18:59 Intake Total 1989 200 / 200 Output Total 1350 / 1350 Balance 1989 -1150 / -1150 Weight 89 kg Intake: IV 150 / 150 200 / 200 NS Inj 250 ML @ 15 mls/hr IV. 50 / 50 SIG ONCE [facility] Rx#:[id number] Ancef Inj 1,000 MG In NS Inj 100 / 100 200 / 200 100 ML @ 200 mls/hr IV.SIG Q8H [facility] Rx#:[id number] Oral 1440 / 1440 Intake (Blood Product) Amt 400 / 400 0 / 0 Rbc As-3 Leukoreduced Unit 0 / 0 [id number] Rbc As-3 Leukoreduced Unit 0 / 0 0 / 0 [id number] Rbc As-3 Leukoreduced Unit 400 / 400 [id number] Output: Urine 1350 / 1350 Other: # Voids 5 Date of Last Bowel Movement 01/04/18 Narrative: General: NAD, AAOx3 Skin: Left chest wall nodular metastatic skin changes. Chest: Slight wheezing on the right side Cardiac: Regular Abd: +BS, soft ND/Nt Ext: Left arm swelling, left arm nodular areas of scc mets and area of ulceration l Results - Labs CBC & Chem 7: 01/08/18 08:21 01/08/18 08:21 Laboratory Results - last 24 hr 01/06/18 01/07/18 01/07/18 12:28 05:54 09:48 WBC RBC Hgb Hct MCV MCH MCHC RDW Plt Count MPV Prelim Diff (Auto) Neut % (Auto) Lymph % (Auto) [place] % (Auto) Eos % (Auto) Baso % (Auto) Neut # (Auto) Lymph # (Auto) [place] # (Auto) Eos # (Auto) Baso # (Auto) WBC Differential Diff Scan Differential Comment Platelet Estimate Platelet Morphology Ovalocytes Sodium Potassium Chloride Carbon Dioxide Anion Gap BUN Creatinine Estimated GFR Random Glucose Calcium Blood Type Antibody Screen MTS Gel Crossmatch See Detail See Detail See Detail Bld Prod Order Comment 01/07/18 01/07/18 01/07/18 10:51 19:49 22:28 WBC RBC Hgb 7.2 L 8.2 L Hct 24.0 L MCV MCH MCHC RDW Plt Count MPV Prelim Diff (Auto) Neut % (Auto) Lymph % (Auto) [place] % (Auto) Eos % (Auto) Baso % (Auto) Neut # (Auto) Lymph # (Auto) [place] # (Auto) Eos # (Auto) Baso # (Auto) WBC Differential Diff Scan Differential Comment Platelet Estimate Platelet Morphology Ovalocytes Sodium Potassium Chloride Carbon Dioxide Anion Gap BUN Creatinine Estimated GFR Random Glucose Calcium Blood Type Antibody Screen MTS Gel Crossmatch See Detail Bld Prod Order Comment 01/08/18 01/08/1818 00:22 08:21 08:21 WBC 6.0 RBC 3.05 L Hgb 9.2 L Hct 27.0 L MCV 88.5 D MCH 30.3 MCHC 34.2 RDW 19.8 H D Plt Count 35 L MPV 7.1 Prelim Diff (Auto) Slide review pending Neut % (Auto) 94.0 H Lymph % (Auto) 1.8 L [place] % (Auto) 4.1 Eos % (Auto) 0.0 Baso % (Auto) 0.1 Neut # (Auto) 5.6 Lymph # (Auto) 0.1 L [place] # (Auto) 0.2 Eos # (Auto) 0.0 Baso # (Auto) 0.0 WBC Differential . Diff Scan Auto diff confirmed Differential Comment . Platelet Estimate Low L Platelet Morphology Normal Ovalocytes 1+ H Sodium 141 Potassium 3.5 Chloride 110 H Carbon Dioxide 20.2 L Anion Gap 11 BUN 42 H Creatinine 0.83 Estimated GFR Greater than 89 Random Glucose 162 H Calcium 7.7 L Blood Type A Negative Antibody Screen Negative MTS Gel Crossmatch See Detail Bld Prod Order Comment Assessment and Plan - Assessment (1) Metastatic squamous cell carcinoma Code(s): C79.9 - Secondary malignant neoplasm of unspecified site Status: Acute Plan: Stage IV metastatic SCC undergoing chemo and XRT Radiation dermatitis - Pt is a 72 y/o WM with 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 - Cont. with Cefazolin to cover staph. - Appreciate wound care recommendations Acute on chronic anemia. acute blood loss from gib. Gastric and duodenal ulcerations EtOH abuse - Pt underwent evaluation with EGD (01/03/18) - The esophagus this appeared to be unremarkable and within normal limits - Small hiatal hernia with a linear ulceration in the gastric cardia possibly representing a Romie ulcer, no visible vessel, no active bleeding this was biopsied - The duodenum there were multiple ulcerations noted in the duodenal bulb and the descending duodenum most were superficial and clean based one was actively bleeding just distal to the ampulla a small vessel was noted and so a clip was placed and no further bleeding was noted biopsies were taken from the ulcer sites - Pt tolerating advanced diet - H/H decreased again today from 10.2/29.6 (01/04)--> 8.3/24.1 (01/05) --> 7.9/ 23.3 (01/06) --> 1 unit PRBCs --> 6.9/20.3 (01/07)--> 2units PRBCs--> 9.2/27.0 () - Pt is planned for evaluation with EGD today - Pt is NPO except meds currently - Cont. Protonix 40mg Q12H - TUMS Q2H PRN - Monitor H/H closely and for any signs of active GIB COPD - Pt complained of SOB this morning - Chest X-Ray (01/06/18) 1. Bibasilar streakiness consistent with atelectasis and/or mild infiltrates. 2. Chronic elevation of the right hemidiaphragm. - Cont nebs and o2 - Cont. Solu-Medrol 60mg Q6H - Add Budesonide nebs BID on 01/08 - Pt was given one time dose of Lasix 20mg and KCl 40meq on 01/06 - Monitor clinical status The exam, history, and the medical decision-making described in the above note were completed with the assistance of the mid-level provider. I reviewed and agree with the findings presented. I attest that I had a [id number] encounter with the patient on the same day, and personally performed and documented my assessment and findings in the medical record. egd today for bleeding ulcers and hgb drop. cont nebs/steroids. kcl replace.PT. (2) GIB (gastrointestinal bleeding) Code(s): K92.2 - Gastrointestinal hemorrhage, unspecified Status: Acute (3) Gastric ulceration Code(s): K25.9 - Gastric ulcer, unspecified as acute or chronic, without hemorrhage or perforation Status: Acute (4) Duodenal ulceration Code(s): K26.9 - Duodenal ulcer, unspecified as acute or chronic, without hemorrhage or perforation Status: Acute
--- NOTE | 2018-01-08 11:01 | P.PNONC ---
Subjective Interval history: Afebrile Reports his breathing is the same as yesterday Currently awaiting to go downstairs for EGD Hoping to get his 11 AM Solu-Medrol prior to procedure Objective Vital Signs/Intake & Output: Vital Signs 01/07/18 12:00 01/07/18 12:45 01/07/18 12:54 Temperature 98.3 F 98.3 F Pulse Rate 101 H 100 H 101 H Respiratory Rate 19 19 19 Blood Pressure 113/71 113/71 Pulse Oximetry 97 97 01/07/18 16:00 01/07/18 16:07 01/07/18 17:00 Temperature 98.2 F 99.4 F Pulse Rate 112 H 80 103 H Respiratory Rate 21 18 22 Blood Pressure 105/63 156/76 H Pulse Oximetry 98 98 01/07/18 17:23 01/07/18 19:26 01/07/18 20:00 Temperature 98.7 F 98.2 F Pulse Rate 118 H 109 H Respiratory Rate 22 20 Blood Pressure 121/59 L 115/61 Pulse Oximetry 94 L 96 01/08/18 00:00 01/08/18 00:40 01/08/18 02:17 Temperature 98.6 F 97.8 F Pulse Rate 104 H 92 H 108 H Respiratory Rate 18 30 H 21 Blood Pressure 119/63 124/63 Pulse Oximetry 96 95 94 L 01/08/18 02:35 01/08/18 03:13 01/08/18 04:45 Temperature 97.5 F L 96.9 F L Pulse Rate 98 H 102 H 101 H Respiratory Rate 20 25 H 21 Blood Pressure 119/64 128/64 Pulse Oximetry 94 L 99 01/08/18 07:34 01/08/18 08:00 Temperature 97.3 F L Pulse Rate 112 H 110 H Respiratory Rate 16 17 Blood Pressure 136/77 Pulse Oximetry 94 L 95 Intake & Output 01/07/18 01/08/18 01/08/18 18:59 06:59 18:59 Intake Total 1989 200 / 200 Output Total 1350 / 1350 Balance 1989 -1150 / -1150 Weight 196 lb 3.382 oz Intake: IV 150 / 150 200 / 200 NS Inj 250 ML @ 15 mls/hr IV. 50 / 50 SIG ONCE [facility] Rx#:[id number] Ancef Inj 1,000 MG In NS Inj 100 / 100 200 / 200 100 ML @ 200 mls/hr IV.SIG Q8H [facility] Rx#:[id number] Oral 1440 / 1440 Intake (Blood Product) Amt 400 / 400 0 / 0 Rbc As-3 Leukoreduced Unit 0 / 0 [id number] Rbc As-3 Leukoreduced Unit 0 / 0 0 / 0 [id number] Rbc As-3 Leukoreduced Unit 400 / 400 [id number] Output: Urine 1350 / 1350 Other: # Voids 5 Date of Last Bowel Movement 01/04/18 Result Diagrams: 01/08/18 08:21 01/08/18 08:21 Laboratory Results: Laboratory Results - last 24 hr 01/06/18 01/07/18 01/07/18 12:28 05:54 09:48 WBC RBC Hgb Hct MCV MCH MCHC RDW Plt Count MPV Prelim Diff (Auto) Neut % (Auto) Lymph % (Auto) [place] % (Auto) Eos % (Auto) Baso % (Auto) Neut # (Auto) Lymph # (Auto) [place] # (Auto) Eos # (Auto) Baso # (Auto) WBC Differential Diff Scan Differential Comment Platelet Estimate Platelet Morphology Ovalocytes Sodium Potassium Chloride Carbon Dioxide Anion Gap BUN Creatinine Estimated GFR Random Glucose Calcium Blood Type Antibody Screen MTS Gel Crossmatch See Detail See Detail See Detail Bld Prod Order Comment 01/07/18 01/07/18 01/07/18 10:51 19:49 22:28 WBC RBC Hgb 7.2 L 8.2 L Hct 24.0 L MCV MCH MCHC RDW Plt Count MPV Prelim Diff (Auto) Neut % (Auto) Lymph % (Auto) [place] % (Auto) Eos % (Auto) Baso % (Auto) Neut # (Auto) Lymph # (Auto) [place] # (Auto) Eos # (Auto) Baso # (Auto) WBC Differential Diff Scan Differential Comment Platelet Estimate Platelet Morphology Ovalocytes Sodium Potassium Chloride Carbon Dioxide Anion Gap BUN Creatinine Estimated GFR Random Glucose Calcium Blood Type Antibody Screen MTS Gel Crossmatch See Detail Bld Prod Order Comment 01/08/18 01/08/18 01/08/18 00:22 08:21 08:21 WBC 6.0 RBC 3.05 L Hgb 9.2 L Hct 27.0 L MCV 88.5 D MCH 30.3 MCHC 34.2 RDW 19.8 H D Plt Count 35 L MPV 7.1 Prelim Diff (Auto) Slide review pending Neut % (Auto) 94.0 H Lymph % (Auto) 1.8 L [place] % (Auto) 4.1 Eos % (Auto) 0.0 Baso % (Auto) 0.1 Neut # (Auto) 5.6 Lymph # (Auto) 0.1 L [place] # (Auto) 0.2 Eos # (Auto) 0.0 Baso # (Auto) 0.0 WBC Differential . Diff Scan Auto diff confirmed Differential Comment . Platelet Estimate Low L Platelet Morphology Normal Ovalocytes 1+ H Sodium 141 Potassium 3.5 Chloride 110 H Carbon Dioxide 20.2 L Anion Gap 11 BUN 42 H Creatinine 0.83 Estimated GFR Greater than 89 Random Glucose 162 H Calcium 7.7 L Blood Type A Negative Antibody Screen Negative MTS Gel Crossmatch See Detail Bld Prod Order Comment Medications: Active Medications Generic Name Dose Route Start Last Admin Trade Name Freq PRN Reason Stop Dose Admin Albuterol 1 ampul 01/02/18 18:29 01/06/18 06:28 Duoneb Neb (Prn) NEB 1 ampul Q2HR NEB PRN Administration WHEEZING Albuterol 1 ampul 01/02/18 20:00 01/08/18 07:33 Duoneb Neb (Helen) NEB 1 ampul Q4HR NEB HELEN Administration Atorvastatin Calcium 20 mg 01/02/18 21:00 01/07/18 20:54 Lipitor PO 20 mg HS HELEN Administration Budesonide 0.5 mg 01/08/18 10:00 01/08/18 10:55 Pulmocort Respule Neb NEB Not Given Q12HR NEB HELEN Diphenhydramine HCl 25 mg 01/07/18 23:33 01/07/18 23:38 Benadryl PO 25 mg HS PRN Administration SLEEP Cefazolin Sodium 1,000 mg/ 100 mls @ 200 mls/hr 01/04/18 12:00 01/08/18 06:08 Sodium Chloride IV.SIG Infused Q8H HEL[facility] Infusion Lactated Ringer's 1,000 mls @ 30 mls/hr 01/08/18 00:30 01/08/18 00:31 Lr 1000 Ml Inj IV.SIG 01/09/18 00:29 Not Given .Q24H HELEN Sodium Chloride 500 mls @ 30 mls/hr 01/08/18 01:00 01/08/18 00:32 Ns Inj IV.SIG Not Given .Q10H [facility] Lorazepam 1 mg 01/02/18 21:00 01/08/18 08:28 Ativan PO 1 mg BID HELEN Administration Methylprednisolone Sodium Succinate 60 mg 01/06/18 17:00 01/08/18 10:46 Solumedrol Inj IV.PUSH 60 mg Q6H [facility] Administration Morphine Sulfate 2 mg 01/02/18 18:29 01/07/18 20:56 Morphine Inj IV.PUSH 2 mg Q2H PRN Administration PAIN SCALE 6 TO 10 Ondansetron HCl 4 mg 01/02/18 18:29 01/04/18 17:34 Zofran Inj IV.PUSH 4 mg Q6H PRN Administration NAUSEA OR VOMITING Pantoprazole Sodium 40 mg 01/02/18 21:00 01/08/18 08:29 Protonix Inj IV.PUSH 40 mg Q12HR [facility] Administration Sodium Chloride 2 ml 01/02/18 21:00 01/08/18 08:28 Ns Flush IV.FLUSH 2 ml BID HELEN Administration Objective Remarks: GENERAL: Elderly male patient, sitting upright in bed, in no acute distress. SKIN: Warm and dry. LUE hardened, nodular skin s/p radiation, guaze drsg to forearm. No current oozing. Upper arm, dry/intact. Nodular lesion to left flank. HEAD: Normocephalic. EYES: No scleral icterus. No injection or drainage. NECK: Supple, trachea midline. CARDIOVASCULAR: +S1/S2 without murmurs. + Tachycardic RESPIRATORY: Anterior breath sounds clear, equal bilaterally. Labored. GASTROINTESTINAL: Abdomen soft, non-tender, nondistended. EXTREMITIES: No cyanosis, or edema. MUSCULOSKELETAL: Generalized weakness NEUROLOGICAL: No obvious focal deficit. Awake, alert, and oriented x3. 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 He is currently receiving radiation therapy secondary to bleeding. Patient also has a past medical history of COPD , Barretts, EtOH and tobacco abuse. He presented to the emergency room with complaints of some maroon/black stool. He was on Xarelto for pulmonary embolism on 12/23/2016. He was found to have a hemoglobin of 4.9. Plan: 1. Squamous cell carcinoma with metastasis to the left arm. Patient currently being treated with radiation. 2. History of pulmonary embolism on 12/23/2016. Xarelto currently on hold due to severe anemia and bleeding. 3. Hemoglobin much improved today after receiving 2 units packed red blood cells yesterday. The patient is having repeat EGD today to evaluate for further bleeding. 4. Continue to hold Xarelto. Monitor CBC. - Attending Statement The exam, history, and the medical decision-making described in the above note were completed with the assistance of the mid-level provider. I reviewed and agree with the findings presented. I attest that I had a [id number] encounter with the patient on the same day, and personally performed and documented my assessment and findings in the medical record. S/P EGD = bleeding ulcers had PRBC, HG improved. Hold Xarelto for now. monitor cbc
[2018-01-08] MEDS ORDERED: Lidocaine PF 1% Inj 5 ML Syringe OTHER ONE (11:25)
--- NOTE | 2018-01-08 11:54 | P.PCN ---
Date of procedure: 01/08/18 Pre-op diagnosis: GI bleed Procedure: PROCEDURE PERFORMED EGD with clip placement PROCEDURE: The procedure, risks and benefits were discussed with Patient/POA and informed consent was obtained. Anesthesia sedated Patient with Diprivan. Patient was placed in the left lateral decubitus position. EGD: The Pentax videoscope was introduced through the oropharynx and advanced to the second portion of the duodenum under direct visualization. Retroflexion was performed in the stomach. FINDINGS: The esophagus this appeared to be unremarkable with normal limits Stomach there was some patchy erythema noted in the antrum and body but no ulcerations and no erosions no blood or bleeding was seen The duodenum there was quite a bit of fresh blood noted in the duodenal bulb and sweep with clots this was flushed again noted were multiple ulcerations and right at the duodenal sweep or 2 opposing ulcers with visible vessels one was actively bleeding at the time and so 2 clips were placed on each of these 2 visible vessels the prior clip that was placed was also noted in the descending duodenum following clip placement there was no further active bleeding ESTIMATED BLOOD LOSS: About 20 cc of blood was seen SPECIMENS REMOVED: None COMPLICATIONS: None IMPRESSION: Mild gastritis Duodenal ulcers with active bleeding PLAN: Continue with current supportive care Continue PPI twice daily Okay for clear liquids at this point Monitor labs and transfuse as needed Avoid NSAIDs and aspirin and any anticoagulation at this point Anesthesia: MAC Surgeon: Carlos Wilder Condition: stable Disposition: floor
[2018-01-08] MEDS: Morphine Sulfate Inj 2 MG/ML Vial IV.PUSH PRN (21:41)
[2018-01-09] MEDS: MethylPREDNISolone Sod Succinate Inj 125 MG/2 ML Vial IV.PUSH SCH ×4 (04:22→22:03)
[2018-01-09 05:54] LABS: Hematocrit 22.3 % (39.0-51.0); Hemoglobin 7.5 gm/dL (13.0-17.0); Lymph # (Auto) 0.1 th/mm3 (1.0-4.8); Lymph % (Auto) 1.6 % (9.0-44.0); Mean Corpuscular HGB Conc 33.7 % (32.0-36.0); Mean Corpuscular Volume 88.8 fL (80.0-100.0); Mean Platelet Volume 7.6 fL (7.0-11.0); Mono # (Auto) 0.2 th/mm3 (0.0-0.9); Mono % (Auto) 4.2 % (0.0-8.0); Neut # (Auto) 3.8 th/mm3 (1.8-7.7); Neut % (Auto) 94.2 % (16.0-70.0); Platelet Count 35 th/mm3 (150-450); Red Blood Count 2.51 mil/mm3 (4.50-5.90); Red Cell Distribution Width 20.5 % (11.6-17.2)
[2018-01-09 06:08] LABS: Alanine Aminotransferase 7 U/L (12-78); Albumin 1.8 g/dL (3.4-5.0); Anion Gap 9 meq/L (5-15); Aspartate Aminotransferase 7 U/L (15-37); Blood Urea Nitrogen 33 mg/dL (7-18); Calcium 7.6 mg/dL (8.5-10.1); Carbon Dioxide 22.9 meq/L (21.0-32.0); Chloride 110 meq/L (98-107); Glomerular Filtration Rate Greater Than 89 mL/min (>89); Glucose,Random 166 mg/dL (74-106); Potassium 3.7 meq/L (3.5-5.1); Sodium 142 meq/L (136-145)
[2018-01-09 06:10] LABS: Alkaline Phosphatase 33 U/L (45-117); Total Protein 4.1 g/dL (6.4-8.2)
[2018-01-09] MEDS: LORazepam 1 MG Tablet PO SCH ×2 (08:06→21:08)
[2018-01-09] MEDS: Pantoprazole Inj 40 MG Vial IV.PUSH SCH ×2 (08:06→21:09)
[2018-01-09 08:43] LABS: Ovalocytes 1+; Platelet Morphology Normal (Normal)
--- NOTE | 2018-01-09 09:22 | P.PNIM ---
Subjective Interval history: Pt still without a BM Denies any abd pain +Flatus Tolerating liquid diet Pt feels his breathing is about the same Physical Exam Vital signs: Vital Signs 01/08/18 11:52 01/08/18 12:00 01/08/18 12:15 Temperature 98.5 F 97.3 F L Pulse Rate 102 H 104 H 98 H Respiratory Rate 18 16 18 Blood Pressure 125/65 113/63 98/53 L Pulse Oximetry 96 95 01/08/18 12:30 01/08/18 14:11 01/08/18 16:21 Temperature 98.5 F Pulse Rate 97 H 101 H 110 H Respiratory Rate 18 16 16 Blood Pressure 100/55 L Pulse Oximetry 95 01/08/18 20:00 01/08/18 20:11 01/08/18 23:03 Temperature 97.7 F Pulse Rate 98 H 92 H 88 Respiratory Rate 19 20 17 Blood Pressure 113/74 Pulse Oximetry 98 01/09/18 00:00 01/09/18 04:32 01/09/18 07:50 Temperature 97.3 F L Pulse Rate 100 H 89 98 H Respiratory Rate 19 19 16 Blood Pressure 126/64 Pulse Oximetry 98 98 01/09/18 08:00 Temperature 97.8 F Pulse Rate 84 Respiratory Rate 17 Blood Pressure 120/70 Pulse Oximetry 98 Intake & Output 01/08/18 01/09/18 01/09/18 18:59 06:59 18:59 Intake Total 300 / 300 680 / 680 Output Total 200 / 200 1000 / 1000 Balance 100 / 100 -320 / -320 Weight 89 kg Intake: IV 100 / 100 200 / 200 Ancef Inj 1,000 MG In NS Inj 100 / 100 200 / 200 100 ML @ 200 mls/hr IV.SIG Q8H [facility] Rx#:[id number] Oral 480 / 480 Anesthesia Amount 200 / 200 Output: Urine 200 / 200 1000 / 1000 Other: Date of Last Bowel Movement 01/04/18 Narrative: General: NAD, AAOx3 Skin: Left chest wall nodular metastatic skin changes. Chest: Slight wheezing on the right side Cardiac: Regular Abd: +BS, soft ND/Nt Ext: Left arm swelling, left arm nodular areas of scc mets and area of ulceration l Results - Labs CBC & Chem 7: 01/09/18 04:32 01/09/18 04:32 Laboratory Results - last 24 hr 01/09/18 01/09/18 04:32 04:32 WBC 4.0 RBC 2.51 L Hgb 7.5 L Hct 22.3 L MCV 88.8 MCH 30.0 MCHC 33.7 RDW 20.5 H Plt Count 35 L MPV 7.6 Prelim Diff (Auto) Slide review pending Neut % (Auto) 94.2 H Lymph % (Auto) 1.6 L [place] % (Auto) 4.2 Eos % (Auto) 0.0 Baso % (Auto) 0.0 Neut # (Auto) 3.8 Lymph # (Auto) 0.1 L [place] # (Auto) 0.2 Eos # (Auto) 0.0 Baso # (Auto) 0.0 WBC Differential . Diff Scan Auto diff confirmed Differential Comment . Platelet Estimate Low L Platelet Morphology Normal Ovalocytes 1+ H Sodium 142 Potassium 3.7 Chloride 110 H Carbon Dioxide 22.9 Anion Gap 9 BUN 33 H Creatinine 0.81 Estimated GFR Greater than 89 Random Glucose 166 H Calcium 7.6 L Total Bilirubin 0.4 AST 7 L ALT 7 L Alkaline Phosphatase 33 L Total Protein 4.1 L Albumin 1.8 L - Imaging Chest CT 01/02/18 00:00 CONCLUSION: 1. No change in left axillary soft tissue density/mass. 2. Decrease in prominence of nodular densities in the left lung. Decrease in patchy right lung parenchymal opacity. 3. Degenerative findings of the thoracic spine and diffuse atherosclerotic disease again noted. Chest X-Ray 01/02/18 16:30 CONCLUSION: No acute cardiopulmonary disease. Chest X-Ray 01/06/18 00:00 CONCLUSION: 1. Bibasilar streakiness consistent with atelectasis and/or mild infiltrates. 2. Chronic elevation of the right hemidiaphragm. 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 - Cont. with Cefazolin to cover staph. - Appreciate wound care recommendations Acute on chronic anemia. acute blood loss from gib. Gastric and duodenal ulcerations EtOH abuse - Pt underwent evaluation with EGD (01/03/18) - The esophagus this appeared to be unremarkable and within normal limits - Small hiatal hernia with a linear ulceration in the gastric cardia possibly representing a Romie ulcer, no visible vessel, no active bleeding this was biopsied - The duodenum there were multiple ulcerations noted in the duodenal bulb and the descending duodenum most were superficial and clean based one was actively bleeding just distal to the ampulla a small vessel was noted and so a clip was placed and no further bleeding was noted biopsies were taken from the ulcer sites - Pt tolerating advanced diet - H/H decreased again today from 10.2/29.6 (01/04)--> 8.3/24.1 (01/05) --> 7.9/ 23.3 (01/06) --> 1 unit PRBCs --> 6.9/20.3 (01/07)--> 2units PRBCs--> 9.2/27.0 () --> 7.5/22.3 (01/09) - Pt underwent evaluation with repeat EGD (01/08) --> Mild gastritis and two duodenal ulcers with active bleeding s/p clipping - Clear liquid diet - Discussed the case with Heme/Onc Zenia GUZMÁN, this morning and pt is planned for transfusion with 1 unit PRBCs today - Cont. Protonix 40mg Q12H - TUMS Q2H PRN - Monitor H/H closely and for any signs of active GIB COPD - Pt complained of SOB this morning - Chest X-Ray (01/06/18) 1. Bibasilar streakiness consistent with atelectasis and/or mild infiltrates. 2. Chronic elevation of the right hemidiaphragm. - Cont nebs and o2 - Cont. Solu-Medrol 60mg Q6H - Add Budesonide nebs BID on 01/08 - Pt was given one time dose of Lasix 20mg and KCl 40meq on 01/06 - Repeat CXR on 01/09 as pt still with SOB and has received several units of PRBCs. Pt may need another dose of Lasix today. - Monitor clinical status The exam, history, and the medical decision-making described in the above note were completed with the assistance of the mid-level provider. I reviewed and agree with the findings presented. I attest that I had a [id number] encounter with the patient on the same day, and personally performed and documented my assessment and findings in the medical record. stage 4 lung ca. severe metastatic dz to left arm and chest wall with open wound on left arm recurrent ugib and gastric/duodenal ulcerations. transfuse as needed getting copd exacerbation rx. nebs/solumedrol still sob. cxr concerning for new pna left lung. noncontrast CT. change cefazolin to zosyn. palliative consult. very poor prognosis. hard to see this pt getting back to chemotherapy with his comorbidities. (2) GIB (gastrointestinal bleeding) Code(s): K92.2 - Gastrointestinal hemorrhage, unspecified Status: Acute (3) Gastric ulceration Code(s): K25.9 - Gastric ulcer, unspecified as acute or chronic, without hemorrhage or perforation Status: Acute (4) Duodenal ulceration Code(s): K26.9 - Duodenal ulcer, unspecified as acute or chronic, without hemorrhage or perforation Status: Acute
[2018-01-09] MEDS ORDERED: Acetaminophen 325 MG Tablet PO PRN (09:28)
[2018-01-09] MEDS ORDERED: Sodium Chlor 0.9% Inj 250 ML IV.SIG SCH (10:00)
[2018-01-09] MEDS: Morphine Sulfate Inj 2 MG/ML Vial IV.PUSH PRN ×3 (10:04→20:10)
--- NOTE | 2018-01-09 10:16 | P.PNONC ---
Subjective Interval history: Afebrile Pt reports he still has not yet had a bowel movement No robi bleeding from left forearm Shortness of breath unchanged Currently requesting some morphine for burning to his left forearm and flank at the site of the metastatic disease Objective Vital Signs/Intake & Output: Vital Signs 01/08/18 11:52 01/08/18 12:00 01/08/18 12:15 Temperature 98.5 F 97.3 F L Pulse Rate 102 H 104 H 98 H Respiratory Rate 18 16 18 Blood Pressure 125/65 113/63 98/53 L Pulse Oximetry 96 95 01/08/18 12:30 01/08/18 14:11 01/08/18 16:21 Temperature 98.5 F Pulse Rate 97 H 101 H 110 H Respiratory Rate 18 16 16 Blood Pressure 100/55 L Pulse Oximetry 95 01/08/18 20:00 01/08/18 20:11 01/08/18 23:03 Temperature 97.7 F Pulse Rate 98 H 92 H 88 Respiratory Rate 19 20 17 Blood Pressure 113/74 Pulse Oximetry 98 01/09/18 00:00 01/09/18 04:32 01/09/18 07:50 Temperature 97.3 F L Pulse Rate 100 H 89 98 H Respiratory Rate 19 19 16 Blood Pressure 126/64 Pulse Oximetry 98 98 01/09/18 08:00 Temperature 97.8 F Pulse Rate 84 Respiratory Rate 17 Blood Pressure 120/70 Pulse Oximetry 98 Intake & Output 01/08/18 01/09/18 01/09/18 18:59 06:59 18:59 Intake Total 300 / 300 680 / 680 Output Total 200 / 200 1000 / 1000 Balance 100 / 100 -320 / -320 Weight 196 lb 3.382 oz Intake: IV 100 / 100 200 / 200 Ancef Inj 1,000 MG In NS Inj 100 / 100 200 / 200 100 ML @ 200 mls/hr IV.SIG [facility]H [facility] Rx#:[id number] Oral 480 / 480 Anesthesia Amount 200 / 200 Output: Urine 200 / 200 1000 / 1000 Other: Date of Last Bowel Movement 01/04/18 01/04/18 Result Diagrams: 01/09/18 04:32 01/09/18 04:32 Laboratory Results: Laboratory Results - last 24 hr 01/07/18 01/09/18 01/09/18 19:49 04:32 04:32 WBC 4.0 RBC 2.51 L Hgb 7.5 L Hct 22.3 L MCV 88.8 MCH 30.0 MCHC 33.7 RDW 20.5 H Plt Count 35 L MPV 7.6 Prelim Diff (Auto) Slide review pending Neut % (Auto) 94.2 H Lymph % (Auto) 1.6 L [place] % (Auto) 4.2 Eos % (Auto) 0.0 Baso % (Auto) 0.0 Neut # (Auto) 3.8 Lymph # (Auto) 0.1 L [place] # (Auto) 0.2 Eos # (Auto) 0.0 Baso # (Auto) 0.0 WBC Differential . Diff Scan Auto diff confirmed Differential Comment . Platelet Estimate Low L Platelet Morphology Normal Ovalocytes 1+ H Sodium 142 Potassium 3.7 Chloride 110 H Carbon Dioxide 22.9 Anion Gap 9 BUN 33 H Creatinine 0.81 Estimated GFR Greater than 89 Random Glucose 166 H Calcium 7.6 L Total Bilirubin 0.4 AST 7 L ALT 7 L Alkaline Phosphatase 33 L Total Protein 4.1 L Albumin 1.8 L MTS Gel Crossmatch See Detail 01/09/18 09:28 WBC RBC Hgb Hct MCV MCH MCHC RDW Plt Count MPV Prelim Diff (Auto) Neut % (Auto) Lymph % (Auto) [place] % (Auto) Eos % (Auto) Baso % (Auto) Neut # (Auto) Lymph # (Auto) [place] # (Auto) Eos # (Auto) Baso # (Auto) WBC Differential Diff Scan Differential Comment Platelet Estimate Platelet Morphology Ovalocytes Sodium Potassium Chloride Carbon Dioxide Anion Gap BUN Creatinine Estimated GFR Random Glucose Calcium Total Bilirubin AST ALT Alkaline Phosphatase Total Protein Albumin MTS Gel Crossmatch See Detail Medications: Active Medications Generic Name Dose Route Start Last Admin Trade Name Freq PRN Reason Stop Dose Admin Acetaminophen 650 mg 01/09/18 09:28 01/09/18 10:00 Tylenol PO 01/09/18 23:59 650 mg Q4H PRN Administration SEE LABEL COMMENTS Albuterol 1 ampul 01/02/18 18:29 01/08/18 14:11 Duoneb Neb (Prn) NEB 1 ampul Q2HR NEB PRN Administration WHEEZING Albuterol 1 ampul 01/02/18 20:00 01/09/18 07:49 Duoneb Neb (Helen) NEB 1 ampul Q4HR NEB HELEN Administration Atorvastatin Calcium 20 mg 01/02/18 21:00 01/08/18 20:40 Lipitor PO 20 mg HS HELEN Administration Budesonide 0.5 mg 01/08/18 10:00 01/09/18 07:49 Pulmocort Respule Neb NEB 0.5 mg Q12HR NEB HELEN Administration Calcium Carbonate 500 mg 01/06/18 10:07 01/08/18 19:00 Tums Chew CHEW 500 mg Q2H PRN Administration acid reflux Diphenhydramine HCl 25 mg 01/07/18 23:33 01/08/18 20:50 Benadryl PO 25 mg HS PRN Administration SLEEP Diphenhydramine HCl 25 mg 01/09/18 09:28 01/09/18 10:00 Benadryl PO 01/09/18 23:59 25 mg Q4H PRN Administration SEE LABEL COMMENTS Cefazolin Sodium 1,000 mg/ 100 mls @ 200 mls/hr 01/04/18 12:00 01/09/18 05:07 Sodium Chloride IV.SIG Infused Q8H HELEN Infusion Sodium Chloride 500 mls @ 30 mls/hr 01/08/18 01:00 01/08/18 00:32 Ns Inj IV.SIG Not Given .Q10H HELEN Lorazepam 1 mg 01/02/18 21:00 01/09/18 08:06 Ativan PO 1 mg BID HELEN Administration Methylprednisolone Sodium Succinate 60 mg 01/06/18 17:00 01/09/18 10:00 Solumedrol Inj IV.PUSH 60 mg Q6H HELEN Administration Morphine Sulfate 2 mg 01/02/18 18:29 01/09/18 10:04 Morphine Inj IV.PUSH 2 mg Q2H PRN Administration PAIN SCALE 6 TO 10 Ondansetron HCl 4 mg 01/02/18 18:29 01/04/18 17:34 Zofran Inj IV.PUSH 4 mg Q6H PRN Administration NAUSEA OR VOMITING Pantoprazole Sodium 40 mg 01/02/18 21:00 01/09/18 08:06 Protonix Inj IV.PUSH 40 mg Q12HR HELEN Administration Sodium Chloride 2 ml 01/02/18 21:00 01/09/18 08:06 Ns Flush IV.FLUSH 2 ml BID HELEN Administration Objective Remarks: GENERAL: Chronically ill-appearing and weak older male resting in bed in no acute distress. He does appear uncomfortable. SKIN: Warm and dry. LUE hardened, nodular skin s/p radiation, guaze drsg to forearm. No current oozing. Upper arm, dry/intact. Nodular lesion to left flank. HEAD: Normocephalic. EYES: No scleral icterus. No injection or drainage. NECK: Supple, trachea midline. CARDIOVASCULAR: +S1/S2 without murmurs. RESPIRATORY: Mild shortness of breath at rest. Lungs with scattered expiratory wheezing GASTROINTESTINAL: Abdomen soft, non-tender, nondistended. EXTREMITIES: No cyanosis, or edema. MUSCULOSKELETAL: Generalized weakness NEUROLOGICAL: No obvious focal deficit. Awake, alert, and oriented x3. 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 He is currently receiving radiation therapy secondary to bleeding. Patient also has a past medical history of COPD , Reaves's, EtOH and tobacco abuse. He presented to the emergency room with complaints of some maroon/black stool. He was on Xarelto for pulmonary embolism on 12/23/2016. He was found to have a hemoglobin of 4.9. Plan: 1. Squamous cell carcinoma with metastasis to the left arm. Patient currently being treated with radiation; he has 5 remaining treatments. 2. History of pulmonary embolism on 12/23/2016. Xarelto currently on hold due to severe anemia and bleeding. 3. Patient had repeat EGD yesterday by Dr. Wilder where he was found to have robi blood in the duodenum. Also noted was two more ulcers that were clipped. 4. Patient has multiple comorbidities including severe COPD, persistent bleeding ulcers with history of Reaves's esophagus and EtOH as well as his metastatic squamous cell carcinoma. He has limited social support. He appears to be getting weaker. I have discussed with [facility] PA, Kaelyn Norwood who has consulted palliative care and I feel this is very appropriate in this patient.
--- NOTE | 2018-01-09 11:27 | XR ---
EXAM DATE: 01/09/2018 11:14 AM EDT AGE/SEX: 72 years / Male INDICATIONS: Shortness of breath and left sided chest pain. CLINICAL DATA: This is the patient's subsequent encounter. Patient reports that signs and symptoms h ave been present for 3 days and indicates a pain score of 5/10. MEDICAL/SURGICAL HISTORY: Chronic obstructive pulmonary disease. Gastroesophageal reflux disea se. Hypertension. Skin cancer. Lymphatic cancer. . Bilateral hip surgery. Hernia repair. Infusapor t. COMPARISON: [facility] [place], CHEST 1V SINGLE AP, 01/06/2018. . FINDINGS: [id number] in good position. Elevation of the right hemidiaphragm. Minimal parenchymal opacity lef t lower lobe. The heart and pulmonary vascularity are normal. The portion of the bony skeleton visual ized is unremarkable. CONCLUSION: New opacity left lower lobe suspicious for inflammatory process. Electronically signed by: Renzo Diane MD 01/09/2018 11:25 AM EDT
[2018-01-09] MEDS: Piperacil/Tazo 3.375 GM Premix 50 ML IV.SIG SCH ×2 (15:52→21:14)
--- NOTE | 2018-01-09 16:27 | P.PNGI ---
Subjective Interval history: Mild indigestion but no obvious abdominal pain some nausea but no obvious vomiting tolerating small amounts of clear liquids <Shira Simons - Last Filed: 01/09/18 16:30> Physical Exam Vital signs: Vital Signs 01/08/18 20:00 01/08/18 20:11 01/08/18 23:03 Temperature 97.7 F Pulse Rate 98 H 92 H 88 Respiratory Rate 19 20 17 Blood Pressure 113/74 Pulse Oximetry 98 01/09/18 00:00 01/09/18 04:32 01/09/18 07:50 Temperature 97.3 F L Pulse Rate 100 H 89 98 H Respiratory Rate 19 19 16 Blood Pressure 126/64 Pulse Oximetry 98 98 01/09/18 08:00 01/09/18 10:40 01/09/18 11:03 Temperature 97.8 F 97.7 F 97.7 F Pulse Rate 84 97 H 105 H Respiratory Rate 17 20 20 Blood Pressure 120/70 141/70 H 145/79 H Pulse Oximetry 98 96 99 01/09/18 12:00 01/09/18 12:06 01/09/18 15:50 Temperature 98.6 F 98.4 F Pulse Rate 143 H 105 H 99 H Respiratory Rate 22 22 24 Blood Pressure 138/73 142/83 H Pulse Oximetry 90 L 100 01/09/18 15:53 Temperature Pulse Rate 78 Respiratory Rate 22 Blood Pressure Pulse Oximetry Intake & Output 01/08/18 01/09/18 01/09/18 18:59 06:59 18:59 Intake Total 300 / 300 680 / 680 400 / 400 Output Total 200 / 200 1000 / 1000 Balance 100 / 100 -320 / -320 400 / 400 Weight 89 kg Intake: IV 100 / 100 200 / 200 Ancef Inj 1,000 MG In NS Inj 100 / 100 200 / 200 100 ML @ 200 mls/hr IV.SIG Q8H [facility] Rx#:[id number] Oral 480 / 480 Anesthesia Amount 200 / 200 Intake (Blood Product) Amt 400 / 400 Rbc As-3 Leukoreduced Unit 400 / 400 [id number] Output: Urine 200 / 200 1000 / 1000 Other: Date of Last Bowel Movement 01/04/18 01/04/18 - Constitutional mild distress, cachectic, cooperative - Routine HEENT Exam ENT: Present: mucous membranes moist - Routine Abdominal Exam Present: soft (Round, no obvious abdominal pain, some nausea but no vomiting) - Routine Skin Exam Present: wounds (Thin turgor bilateral extremities bruising) - Routine Neurological Exam Present: alert (Answering simple questions) <Shira Simons - Last Filed: 01/09/18 16:30> Vital signs: Vital Signs 01/08/18 20:00 01/08/18 20:11 01/08/18 23:03 Temperature 97.7 F Pulse Rate 98 H 92 H 88 Respiratory Rate 19 20 17 Blood Pressure 113/74 Pulse Oximetry 98 01/09/18 00:00 01/09/18 04:32 01/09/18 07:50 Temperature 97.3 F L Pulse Rate 100 H 89 98 H Respiratory Rate 19 19 16 Blood Pressure 126/64 Pulse Oximetry 98 98 01/09/18 08:00 01/09/18 10:40 01/09/18 11:03 Temperature 97.8 F 97.7 F 97.7 F Pulse Rate 84 97 H 105 H Respiratory Rate 17 20 20 Blood Pressure 120/70 141/70 H 145/79 H Pulse Oximetry 98 96 99 01/09/18 12:00 01/09/18 12:06 01/09/18 15:50 Temperature 98.6 F 98.4 F Pulse Rate 143 H 105 H 99 H Respiratory Rate 22 22 24 Blood Pressure 138/73 142/83 H Pulse Oximetry 90 L 100 01/09/18 15:53 01/09/18 16:34 Temperature Pulse Rate 78 106 H Respiratory Rate 22 Blood Pressure Pulse Oximetry Intake & Output 01/08/18 01/09/18 01/09/18 18:59 06:59 18:59 Intake Total 300 / 300 680 / 680 400 / 400 Output Total 200 / 200 1000 / 1000 Balance 100 / 100 -320 / -320 400 / 400 Weight 89 kg Intake: IV 100 / 100 200 / 200 Ancef Inj 1,000 MG In NS Inj 100 / 100 200 / 200 100 ML @ 200 mls/hr IV.SIG Q8H [facility] Rx#:[id number] Oral 480 / 480 Anesthesia Amount 200 / 200 Intake (Blood Product) Amt 400 / 400 Rbc As-3 Leukoreduced Unit 400 / 400 [id number] Output: Urine 200 / 200 1000 / 1000 Other: Date of Last Bowel Movement 01/04/18 01/04/18 <Carlos Wilder - Last Filed: 01/09/18 16:51> Results - Labs CBC & Chem 7: 01/09/18 04:32 01/09/18 04:32 Laboratory Results - last 24 hr 01/07/18 01/08/18 01/09/18 19:49 00:22 04:32 WBC 4.0 RBC 2.51 L Hgb 7.5 L Hct 22.3 L MCV 88.8 MCH 30.0 MCHC 33.7 RDW 20.5 H Plt Count 35 L MPV 7.6 Prelim Diff (Auto) Slide review pending Neut % (Auto) 94.2 H Lymph % (Auto) 1.6 L Hill % (Auto) 4.2 Eos % (Auto) 0.0 Baso % (Auto) 0.0 Neut # (Auto) 3.8 Lymph # (Auto) 0.1 L Hill # (Auto) 0.2 Eos # (Auto) 0.0 Baso # (Auto) 0.0 WBC Differential . Diff Scan Auto diff confirmed Differential Comment . Platelet Estimate Low L Platelet Morphology Normal Ovalocytes 1+ H Sodium Potassium Chloride Carbon Dioxide Anion Gap BUN Creatinine Estimated GFR Random Glucose Calcium Total Bilirubin AST ALT Alkaline Phosphatase Total Protein Albumin MTS Gel Crossmatch See Detail See Detail Bld Prod Order Comment 01/09/18 01/09/18 04:32 09:28 WBC RBC Hgb Hct MCV MCH MCHC RDW Plt Count MPV Prelim Diff (Auto) Neut % (Auto) Lymph % (Auto) Hill % (Auto) Eos % (Auto) Baso % (Auto) Neut # (Auto) Lymph # (Auto) Hill # (Auto) Eos # (Auto) Baso # (Auto) WBC Differential Diff Scan Differential Comment Platelet Estimate Platelet Morphology Ovalocytes Sodium 142 Potassium 3.7 Chloride 110 H Carbon Dioxide 22.9 Anion Gap 9 BUN 33 H Creatinine 0.81 Estimated GFR Greater than 89 Random Glucose 166 H Calcium 7.6 L Total Bilirubin 0.4 AST 7 L ALT 7 L Alkaline Phosphatase 33 L Total Protein 4.1 L Albumin 1.8 L MTS Gel Crossmatch See Detail Bld Prod Order Comment - Imaging Impressions Chest X-Ray 01/09/18 00:00 CONCLUSION: New opacity left lower lobe suspicious for inflammatory process. <Shira Simons - Last Filed: 01/09/18 16:30> - Labs CBC & Chem 7: 01/09/18 04:32 01/09/18 04:32 Laboratory Results - last 24 hr 01/07/18 01/08/18 01/09/18 19:49 00:22 04:32 WBC 4.0 RBC 2.51 L Hgb 7.5 L Hct 22.3 L MCV 88.8 MCH 30.0 MCHC 33.7 RDW 20.5 H Plt Count 35 L MPV 7.6 Prelim Diff (Auto) Slide review pending Neut % (Auto) 94.2 H Lymph % (Auto) 1.6 L Hill % (Auto) 4.2 Eos % (Auto) 0.0 Baso % (Auto) 0.0 Neut # (Auto) 3.8 Lymph # (Auto) 0.1 L Hill # (Auto) 0.2 Eos # (Auto) 0.0 Baso # (Auto) 0.0 WBC Differential . Diff Scan Auto diff confirmed Differential Comment . Platelet Estimate Low L Platelet Morphology Normal Ovalocytes 1+ H Sodium Potassium Chloride Carbon Dioxide Anion Gap BUN Creatinine Estimated GFR Random Glucose Calcium Total Bilirubin AST ALT Alkaline Phosphatase Total Protein Albumin MTS Gel Crossmatch See Detail See Detail Bld Prod Order Comment 01/09/18 01/09/18 04:32 09:28 WBC RBC Hgb Hct MCV MCH MCHC RDW Plt Count MPV Prelim Diff (Auto) Neut % (Auto) Lymph % (Auto) Hill % (Auto) Eos % (Auto) Baso % (Auto) Neut # (Auto) Lymph # (Auto) Hill # (Auto) Eos # (Auto) Baso # (Auto) WBC Differential Diff Scan Differential Comment Platelet Estimate Platelet Morphology Ovalocytes Sodium 142 Potassium 3.7 Chloride 110 H Carbon Dioxide 22.9 Anion Gap 9 BUN 33 H Creatinine 0.81 Estimated GFR Greater than 89 Random Glucose 166 H Calcium 7.6 L Total Bilirubin 0.4 AST 7 L ALT 7 L Alkaline Phosphatase 33 L Total Protein 4.1 L Albumin 1.8 L MTS Gel Crossmatch See Detail Bld Prod Order Comment - Imaging Impressions Chest X-Ray 01/09/18 00:00 CONCLUSION: New opacity left lower lobe suspicious for inflammatory process. 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 He had one episode of black stool over a week ago but stools have been brown since. He is on Xarelto for upper extremity DVT. He also takes 2 Advil daily. Patient had EGD/colonoscopy on ----> Two medium sized sessile polyps were found in the rectum; polypectomy was performed with a cold snare. The colon mucosa was otherwise normal; multiple biopsies were performed. Retroflexed views revealed internal hemorrhoids. Retroflexed views revealed medium internal hemorrhoids. Revealed no abnormalities of the rectum. Irregular z line, this was biopsied. There was erythematous gastritis in the gastric antrum; multiple biopsies were performed. Normal endoscopy otherwise. Normal duodenal mucosa. Retroflexed views revealed no abnormalities. Bx showed hyperplastic polyp, and Reaves, no histopathologic abnormalities. Pt received 4 units of blood and he is to receive one more unit. - PAULIE- possibly due to above - xh of squamous cell carcinoma with mets- receiving radiation - COPD - Hx of DVT, Xarelto on hold 01/04/2018 patient is status post EGD on 01/03/2018. Findings include hiatal hernia, gastric ulcer, duodenal ulcer , clip placement. Patient has tolerated clear liquids and diet has been advanced to cardiac diet. Encouraged again to avoid any NSAIDs, results discussed with patient. Blood thinners still on hold. Anemia, appears to be stable without any obvious bleeding, no BM noted today. Not much to add from a GI perspective and we signed off but please reconsult if needed. 01/07/2018 symptomatic anemia, decrease in hemoglobin 1 g over the past 24 hours from 7.9-6.9 this a.m. patient still has some mild shortness of breath noted but is being maintained on oxygen per nasal cannula. According to the hospitalist and record patient has had some gradual improvement of his shortness of breath over the past 24 hours. Gastroenterology was asked to re-see patient today and reevaluate low hemoglobin. Will go ahead and recheck hemoglobin this a.m. stat for verification, okay for transfusion this p.m. and we will plan to do EGD in the a.m. and reevaluate for possible GI bleeding. Initial plan was for follow-up with EGD in 2 months but will need reevaluation today. 01/09/2018 patient is status post repeat EGD performed on 01/08/2018 for drop in his hemoglobin and GI bleed. Findings include Mild gastritis and duodenal ulcers with active bleeding. Patient now states he is feeling somewhat better and no obvious bleeding but hemoglobin is back down to 7.5 today after previous 9.2. Patient does note some indigestion but no obvious hematemesis. Will need GI bleed monitored with hemoglobin checks PLAN: Diet clear liquids, has some decreased appetite but is tolerating for now PPI twice daily Avoid NSAIDs aspirin and anticoagulation Monitor labs and transfuse as needed Supportive care Patient was seen per myself and Dr. Wilder, note was written on his behalf <Shira Simons - Last Filed: 01/09/18 16:30> - Plan Patient seen and examined Agree with above Continue with current supportive care Monitor labs Continue with close monitoring and transfusions as needed If there is continued blood loss we will pursue repeat EGD <Carlos Wilder - Last Filed: 01/09/18 16:51>
[2018-01-09] MEDS ORDERED: Metoprolol Inj 5 MG/5 ML Vial IV.PUSH ONE (19:15)
[2018-01-09] MEDS ORDERED: Metoprolol Inj 5 MG/5 ML Vial IV.PUSH PRN (19:59)
[2018-01-09] MEDS: dilTIAZem Inj 125 MG in Sodium Chlor 0.9% Inj 100 ML IV.CONT PRN (23:10)
[2018-01-10] MEDS: Piperacil/Tazo 3.375 GM Premix 50 ML IV.SIG SCH ×4 (02:51→19:48)
[2018-01-10] MEDS: Morphine Sulfate Inj 2 MG/ML Vial IV.PUSH PRN ×4 (03:34→20:44)
[2018-01-10 05:25] LABS: Hematocrit 23.9 % (39.0-51.0); Hemoglobin 8.2 gm/dL (13.0-17.0); Lymph # (Auto) 0.1 th/mm3 (1.0-4.8); Lymph % (Auto) 1.6 % (9.0-44.0); Mean Corpuscular HGB Conc 34.2 % (32.0-36.0); Mean Corpuscular Hemoglobin 30.6 pg (27.0-34.0); Mean Corpuscular Volume 89.6 fL (80.0-100.0); Mean Platelet Volume 8.6 fL (7.0-11.0); Mono # (Auto) 0.2 th/mm3 (0.0-0.9); Mono % (Auto) 4.7 % (0.0-8.0); Neut # (Auto) 3.7 th/mm3 (1.8-7.7); Neut % (Auto) 93.7 % (16.0-70.0); Platelet Count 33 th/mm3 (150-450); Red Blood Count 2.67 mil/mm3 (4.50-5.90); Red Cell Distribution Width 19.6 % (11.6-17.2)
[2018-01-10] MEDS: MethylPREDNISolone Sod Succinate Inj 125 MG/2 ML Vial IV.PUSH SCH ×4 (05:27→23:40)
[2018-01-10 05:45] LABS: Anion Gap 12 meq/L (5-15); Blood Urea Nitrogen 27 mg/dL (7-18); Calcium 7.5 mg/dL (8.5-10.1); Carbon Dioxide 22.4 meq/L (21.0-32.0); Chloride 109 meq/L (98-107); Glomerular Filtration Rate Greater Than 89 mL/min (>89); Glucose,Random 142 mg/dL (74-106); Magnesium 1.8 mg/dL (1.5-2.5); Potassium 3.8 meq/L (3.5-5.1); Sodium 143 meq/L (136-145)
[2018-01-10 07:02] LABS: Ovalocytes 1+; Platelet Morphology Normal (Normal)
[2018-01-10] MEDS: dilTIAZem Inj 125 MG in Sodium Chlor 0.9% Inj 100 ML IV.CONT PRN ×2 (07:42→17:01)
--- NOTE | 2018-01-10 08:06 | P.CONCA ---
History of Present Illness Service: [facility] cardiology Consult date: 01/10/18 Requesting Physician: Zenia Flores Reason for Consult: Atrial fibrillation Primary Care Provider: Ryley Rodgers MD Family Provider: Ryley Rodgers MD History of Present Illness: Mr. 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 He was found to be severely anemic with hemoglobin of 4.9 and admitted to [facility]. Clearly Xarelto has been held and he underwent EGD 2 so far throughout his hospital course with findings of gastritis and multiple gastric ulcers some of which were bleeding and required clipping. He has required PRBC transfusion 10 units. He is currently stable on a clear liquid diet and has maintained stable H/H over the past 2 days. He was noted yesterday evening to go into atrial fibrillation with rapid ventricular response and was started on a diltiazem drip at 15 mg/h with resultant HR control 90s currently. BP 120s/70s. EKG completed reveals atrial fibrillation with rapid ventricular response and nonspecific ST-T wave segment abnormality. Echocardiogram was completed 12/23/16 which was essentially normal study with LVEF 60% and no valvulopathy. Patient feels well currently and has no complaints. Denies significant dyspnea at this juncture. Denies any chest pain, palpitations, lightheadedness, or syncope. He does recall having intermittent rare palpitations as an outpatient but nothing that was of concern to him. Cardiology was consulted to assess with management of atrial fibrillation. Review of Systems All other systems reviewed negative except as stated in HPI [facility] - History History Provided By: Patient - Medical History Medical History: Medical History (Last Reviewed 01/05/18 @ 07:56 by Saman Longoria) FHx: radiation therapy GERD (gastroesophageal reflux disease) HTN (hypertension) High cholesterol History of blood transfusion History of chemotherapy Alcohol dependence Anxiety Barretts esophagus COPD (chronic obstructive pulmonary disease) GERD (gastroesophageal reflux disease) Hyperlipidemia Hypertension Hypothyroidism Lymphedema of left upper extremity Peripheral arterial disease Skin cancer Squamous cell carcinoma of unknown origin - Surgical History Surgical History: Surgical History (Last Reviewed 01/05/18 @ 07:56 by Saman Longoria) Port-A-Cath in place (Acute) Hx of hernia repair Hx of shoulder surgery Abnormal colonoscopy H/O angioplasty History of hip replacement Status post bilateral total hip replacement - Family History Family History: Family History (Last Reviewed 01/04/18 @ 16:21 by Noelle Hendrix) Mother Natural with unknown cause - Tobacco History Second Hand Smoke Exposure: No Tobacco Use In Past 30 Days: Yes Smoking Status: Current every day smoker Tobacco Type: Cigarettes - Alcohol History How Often Do You Have a Drink Containing Alcohol: 2 to 4 times a month - Substance Use History Substance History: No History of Abuse - Travel History Recent Travel in the [place] Within the Last 8 Weeks: No Recent Travel Out of the Country Within the Last 8 Weeks: No - Immunization History Tetanus Immunization: >5 Years Hx Influenza Vaccine This Season: No Medications and Allergies Active Medications: Active Medications Acetaminophen (Tylenol) 650 mg PO Q6H PRN PRN Reason: PAIN 1-10 AND/OR FEVER >101F Al Hydroxide/Mg Hydroxide (Milk Of Jaimie Liq) 30 ml PO Q12H PRN PRN Reason: Mild Constipation Albuterol (Duoneb Neb (Prn)) 1 ampul NEB Q2HR NEB PRN PRN Reason: WHEEZING Last Admin: 01/08/18 14:11 Dose: 1 ampul Albuterol (Duoneb Neb (Helen)) 1 ampul NEB Q4HR NEB HELEN Last Admin: 01/10/18 04:03 Dose: 1 ampul Atorvastatin Calcium (Lipitor) 20 mg PO HS HELEN Last Admin: 01/09/18 21:08 Dose: 20 mg Budesonide (Pulmocort Respule Neb) 0.5 mg NEB Q12HR NEB HELEN Last Admin: 01/09/18 20:23 Dose: 0.5 mg Calcium Carbonate (Tums Chew) 500 mg CHEW Q2H PRN PRN Reason: acid reflux Last Admin: 01/08/18 19:00 Dose: 500 mg Diphenhydramine HCl (Benadryl) 25 mg PO HS PRN PRN Reason: SLEEP Last Admin: 01/08/18 20:50 Dose: 25 mg Sodium Chloride (Ns Inj) 500 mls @ 30 mls/hr IV.SIG .Q10H [facility] Last Admin: 01/08/18 00:32 Dose: Not Given Piperacillin/Tazobactam/Dextrose (Zosyn 3.375 Gm Premix) 50 mls @ 100 mls/hr IV.SIG Q6H [facility] Last Infusion: 01/10/18 04:00 Dose: Infused Diltiazem HCl 125 mg/ Sodium (Chloride) 125 mls @ 5 mls/hr IV.CONT TITRATE PRN ; Protocol PRN Reason: Per Protocol Last Admin: 01/10/18 07:42 Dose: 15 mg/hr, 15 mls/hr Lactulose (Lactulose Liq) 30 ml PO DAILY PRN PRN Reason: SEVERE CONSITIPATION Lorazepam (Ativan) 1 mg PO BID [facility] Last Admin: 01/09/18 21:08 Dose: 1 mg Methylprednisolone Sodium Succinate (Solumedrol Inj) 60 mg IV.PUSH Q6H [facility] Last Admin: 01/10/18 05:27 Dose: 60 mg Morphine Sulfate (Morphine Inj) 2 mg IV.PUSH Q2H PRN PRN Reason: PAIN SCALE 6 TO 10 Last Admin: 01/10/18 03:34 Dose: 2 mg Ondansetron HCl (Zofran Inj) 4 mg IV.PUSH Q6H PRN PRN Reason: NAUSEA OR VOMITING Last Admin: 01/04/18 17:34 Dose: 4 mg Pantoprazole Sodium (Protonix Inj) 40 mg IV.PUSH Q12HR [facility] Last Admin: 01/09/18 21:09 Dose: 40 mg Sodium Chloride (Ns Flush) 2 ml IV.FLUSH BID [facility] Last Admin: 01/09/18 21:14 Dose: 2 ml Sodium Chloride (Ns Flush) 2 ml IV.FLUSH PRN PRN PRN Reason: FLUSH AFTER USING IV ACCESS Allergies Allergy/AdvReac Type Severity Reaction Status Date / Time No Known Allergies Allergy Verified 01/02/18 16:11 Home Medications Medication Instructions Recorded Confirmed Type albuterol sulfate [Ventolin HFA] 2 puff INHALATION Q4-6H PRN 10/29/17 01/02/18 History atorvastatin 20 mg PO HS 10/29/17 01/02/18 History ipratropium-albuterol 3 ml INHALATION QID PRN 10/29/17 01/02/18 History lisinopril 10 mg PO BID 10/29/17 01/02/18 History lorazepam 1 mg PO BID 10/29/17 01/02/18 History pantoprazole 40 mg PO DAILY 10/29/17 01/02/18 History metoprolol tartrate 50 mg PO BID 01/02/18 01/02/18 History Exam Vital signs: Vital Signs 01/09/18 08:00 01/09/18 10:40 01/09/18 11:03 Temperature 97.8 F 97.7 F 97.7 F Pulse Rate 84 97 H 105 H Respiratory Rate 17 20 20 Blood Pressure 120/70 141/70 H 145/79 H Pulse Oximetry 98 96 99 01/09/18 12:00 01/09/18 12:06 01/09/18 15:50 Temperature 98.6 F 98.4 F Pulse Rate 143 H 105 H 99 H Respiratory Rate 22 22 24 Blood Pressure 138/73 142/83 H Pulse Oximetry 90 L 100 01/09/18 15:53 01/09/18 16:34 01/09/18 19:14 Temperature Pulse Rate 78 106 H 134 H Respiratory Rate 22 Blood Pressure 138/77 Pulse Oximetry 01/09/18 19:20 01/09/18 19:59 01/09/18 20:06 Temperature 99.1 F Pulse Rate 112 H 144 H 101 H Respiratory Rate 20 Blood Pressure 111/56 L 122/74 Pulse Oximetry 98 01/09/18 20:27 01/09/18 20:28 01/09/18 21:08 Temperature Pulse Rate 103 H Respiratory Rate 16 20 Blood Pressure Pulse Oximetry 98 01/09/18 22:05 01/09/18 22:19 01/09/18 22:23 Temperature Pulse Rate 134 H 92 H 107 H Respiratory Rate Blood Pressure 117/92 H 105/67 120/67 Pulse Oximetry 96 01/09/18 23:10 01/09/18 23:20 01/09/18 23:33 Temperature 98.7 F Pulse Rate 118 H 112 H 128 H Respiratory Rate 18 18 Blood Pressure 106/76 109/71 Pulse Oximetry 96 01/09/18 23:44 01/09/18 23:55 01/10/18 00:02 Temperature Pulse Rate 115 H 120 H 135 H Respiratory Rate Blood Pressure 114/73 118/72 Pulse Oximetry 01/10/18 00:15 01/10/18 00:29 01/10/18 00:43 Temperature Pulse Rate 108 H 111 H 94 H Respiratory Rate Blood Pressure 121/69 126/68 Pulse Oximetry 01/10/18 00:44 01/10/18 00:59 01/10/18 01:02 Temperature Pulse Rate 99 H 107 H 106 H Respiratory Rate Blood Pressure 112/67 111/63 Pulse Oximetry 01/10/18 01:16 01/10/18 01:35 01/10/18 02:00 Temperature Pulse Rate 105 H 111 H 98 H Respiratory Rate Blood Pressure 101/74 106/64 Pulse Oximetry 01/10/18 02:29 01/10/18 03:00 01/10/18 03:40 Temperature 97.6 F Pulse Rate 96 H 98 H 99 H Respiratory Rate 20 Blood Pressure 127/72 Pulse Oximetry 97 01/10/18 04:04 01/10/18 04:07 01/10/18 05:00 Temperature Pulse Rate 120 H 94 H 95 H Respiratory Rate 18 Blood Pressure Pulse Oximetry 01/10/18 06:05 Temperature Pulse Rate 83 Respiratory Rate Blood Pressure Pulse Oximetry Intake & Output 01/09/18 01/10/18 01/10/18 18:59 06:59 18:59 Intake Total 1514 / 1514 590 / 590 115 / 115 Output Total 320 / 320 575 / 575 200 / 200 Balance 1194 / 1194 - / Intake: IV 125 / 125 110 / 110 115 / 115 Cardizem Inj 125 MG In NS Inj 115 / 115 100 ML @ 5 MG/HR 5 mls/hr IV. CONT TITRATE PRN Rx#:[id number] Zosyn 3.375 GM Premix 50 ML @ 50 / 50 110 / 110 100 mls/hr IV.SIG Q6H [facility] Rx#: [id number] NS Inj 250 ML @ 15 mls/hr IV. 75 / 75 SIG ONCE [facility] Rx#:[id number] Oral 989 / 989 480 / 480 Intake (Blood Product) Amt 400 / 400 Rbc As-3 Leukoreduced Unit 400 / 400 [id number] Output: Urine 320 / 320 575 / 575 200 / 200 Other: Date of Last Bowel Movement 01/04/18 01/04/18 Narrative: GENERAL: A and O 3, pleasant speaking full sentences with supplemental oxygen via nasal cannula SKIN: Warm NECK: Trachea midline. No JVD. CARDIOVASCULAR: irregular rhythm with normal rate and no significant murmurs. RESPIRATORY: No accessory muscle use. Clear to auscultation with distant breath sounds. Breath sounds equal bilaterally. GASTROINTESTINAL: Abdomen soft, non-tender, nondistended. Hepatic and splenic margins not palpable. MUSCULOSKELETAL: Extremities without clubbing, cyanosis, or edema. No obvious deformities. NEUROLOGICAL: Awake and alert. No obvious cranial nerve deficits. Normal speech. PSYCHIATRIC: Appropriate mood and affect; insight and judgment normal. Results 01/10/18 03:40 01/10/18 03:40 Cardiac Enzymes 01/09/18 Range/Units 04:32 AST 7 L (15-37) U/L CBC 01/08/18 01/09/18 01/10/18 Range/Units 08:21 04:32 03:40 WBC 6.0 4.0 4.0 (4.0-11.0) th/mm3 RBC 3.05 L 2.51 L 2.67 L (4.50-5.90) mil/mm3 Hgb 9.2 L 7.5 L 8.2 L (13.0-17.0) gm/dL Hct 27.0 L 22.3 L 23.9 L (39.0-51.0) % Plt Count 35 L 35 L 33 L (150-450) th/mm3 Neut # (Auto) 5.6 3.8 3.7 (1.8-7.7) th/mm3 Lymph # (Auto) 0.1 L 0.1 L 0.1 L (1.0-4.8) th/mm3 Elbert # (Auto) 0.2 0.2 0.2 (0.0-0.9) th/mm3 Eos # (Auto) 0.0 0.0 0.0 (0.0-0.4) th/mm3 Baso # (Auto) 0.0 0.0 0.0 (0.0-0.2) th/mm3 Comprehensive Metabolic Panel 01/08/18 01/09/18 01/10/18 Range/Units 08:21 04:32 03:40 Sodium 141 142 143 (136-145) meq/L Potassium 3.5 3.7 3.8 (3.5-5.1) meq/L Chloride 110 H 110 H 109 H (98-107) meq/L Carbon Dioxide 20.2 L 22.9 22.4 (21.0-32.0) meq/L BUN 42 H 33 H 27 H (7-18) mg/dL Creatinine 0.83 0.81 0.81 (0.60-1.30) mg/dL Calcium 7.7 L 7.6 L 7.5 L (8.5-10.1) mg/dL AST 7 L (15-37) U/L ALT 7 L (12-78) U/L Alkaline Phosphatase 33 L (45-117) U/L Total Protein 4.1 L (6.4-8.2) g/dL Albumin 1.8 L (3.4-5.0) g/dL Intake and Output 01/09/18 01/10/18 01/10/18 22:59 06:59 14:59 Intake Total 1809 / 1809 295 / 295 115 / 115 Output Total 470 / 470 425 / 425 200 / 200 Balance 1339 / 1339 -130 / -130 -85 / -85 Intake: IV 180 / 180 55 / 55 115 / 115 Cardizem Inj 125 MG In NS Inj 115 / 115 100 ML @ 5 MG/HR 5 mls/hr IV. CONT TITRATE PRN Rx#:[id number] Zosyn 3.375 GM Premix 50 ML @ 105 / 105 55 / 55 100 mls/hr IV.SIG Q6H [facility] Rx#: [id number] NS Inj 250 ML @ 15 mls/hr IV. 75 / 75 SIG ONCE [facility] Rx#:[id number] Oral 1229 / 1229 240 / 240 Intake (Blood Product) Amt 400 / 400 Rbc As-3 Leukoreduced Unit 400 / 400 [id number] Output: Urine 470 / 470 425 / 425 200 / 200 Other: Date of Last Bowel Movement 01/04/18 - Imaging and Cardiology Imaging: Impressions Chest X-Ray 01/09/18 00:00 CONCLUSION: New opacity left lower lobe suspicious for inflammatory process. 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 He has developed atrial fibrillation with rapid ventricular response overnight which is now rate controlled on current diltiazem drip at 15 mg/h. Patient is currently asymptomatic. Due to recent unstable course of recurrent GIB, would continue with the diltiazem drip at current rate until it is deemed of low risk for recurrent GIB. At that time, may transition to oral diltiazem for continued rate control. Clearly he cannot be anticoagulated due to recurrent life-threatening GIB. We will sign off. Please contact with any further questions.
[2018-01-10] MEDS: LORazepam 1 MG Tablet PO SCH ×2 (09:45→21:58)
[2018-01-10] MEDS: Pantoprazole Inj 40 MG Vial IV.PUSH SCH ×2 (09:45→21:59)
--- NOTE | 2018-01-10 10:29 | P.PNONC ---
Subjective Interval history: Patient sitting in bed, in no acute distress. He denies any bleeding. No N/V/D. Continues to have some pain in the left arm. Currently on a diltiazem drip for A. fib with RVR. Not on anticoagulation due to GI bleed and critical anemia. Rate currently controlled. Objective Vital Signs/Intake & Output: Vital Signs 01/09/18 10:40 01/09/18 11:03 01/09/18 12:00 Temperature 97.7 F 97.7 F 98.6 F Pulse Rate 97 H 105 H 143 H Respiratory Rate 20 20 22 Blood Pressure 141/70 H 145/79 H 138/73 Pulse Oximetry 96 99 90 L 01/09/18 12:06 01/09/18 15:50 01/09/18 15:53 Temperature 98.4 F Pulse Rate 105 H 99 H 78 Respiratory Rate 22 24 22 Blood Pressure 142/83 H Pulse Oximetry 100 01/09/18 16:34 01/09/18 19:14 01/09/18 19:20 Temperature Pulse Rate 106 H 134 H 112 H Respiratory Rate Blood Pressure 138/77 111/56 L Pulse Oximetry 01/09/18 19:59 01/09/18 20:06 01/09/18 20:27 Temperature 99.1 F Pulse Rate 144 H 101 H Respiratory Rate 20 Blood Pressure 122/74 Pulse Oximetry 98 98 01/09/18 20:28 01/09/18 21:08 01/09/18 22:05 Temperature Pulse Rate 103 H 134 H Respiratory Rate 16 20 Blood Pressure 117/92 H Pulse Oximetry 01/09/18 22:19 01/09/18 22:23 01/09/18 23:10 Temperature 98.7 F Pulse Rate 92 H 107 H 118 H Respiratory Rate 18 Blood Pressure 105/67 120/67 106/76 Pulse Oximetry 96 96 01/09/18 23:20 01/09/18 23:33 01/09/18 23:44 Temperature Pulse Rate 112 H 128 H 115 H Respiratory Rate 18 Blood Pressure 109/71 114/73 Pulse Oximetry 01/09/18 23:55 01/10/18 00:02 01/10/18 00:15 Temperature Pulse Rate 120 H 135 H 108 H Respiratory Rate Blood Pressure 118/72 121/69 Pulse Oximetry 01/10/18 00:29 01/10/18 00:43 01/10/18 00:44 Temperature Pulse Rate 111 H 94 H 99 H Respiratory Rate Blood Pressure 126/68 112/67 Pulse Oximetry 01/10/18 00:59 01/10/18 01:02 01/10/18 01:16 Temperature Pulse Rate 107 H 106 H 105 H Respiratory Rate Blood Pressure 111/63 101/74 Pulse Oximetry 01/10/18 01:35 01/10/18 02:00 01/10/18 02:29 Temperature Pulse Rate 111 H 98 H 96 H Respiratory Rate Blood Pressure 106/64 Pulse Oximetry 01/10/18 03:00 01/10/18 03:40 01/10/18 04:04 Temperature 97.6 F Pulse Rate 98 H 99 H 120 H Respiratory Rate 20 18 Blood Pressure 127/72 Pulse Oximetry 97 01/10/18 04:07 01/10/18 05:00 01/10/18 06:05 Temperature Pulse Rate 94 H 95 H 83 Respiratory Rate Blood Pressure Pulse Oximetry 01/10/18 08:41 Temperature Pulse Rate 83 Respiratory Rate 18 Blood Pressure Pulse Oximetry 96 Intake & Output 01/09/18 01/10/18 01/10/18 18:59 06:59 18:59 Intake Total 1514 / 1514 590 / 590 115 / 115 Output Total 320 / 320 575 / 575 200 / 200 Balance 1194 / 1194 - / Intake: IV 125 / 125 110 / 110 115 / 115 Cardizem Inj 125 MG In NS Inj 115 / 115 100 ML @ 5 MG/HR 5 mls/hr IV. CONT TITRATE PRN Rx#:[id number] Zosyn 3.375 GM Premix 50 ML @ 50 / 50 110 / 110 100 mls/hr IV.SIG Q6H HELEN Rx#: [id number] NS Inj 250 ML @ 15 mls/hr IV. 75 / 75 SIG ONCE HELEN Rx#:[id number] Oral 989 / 989 480 / 480 Intake (Blood Product) Amt 400 / 400 Rbc As-3 Leukoreduced Unit 400 / 400 [id number] Output: Urine 320 / 320 575 / 575 200 / 200 Other: Date of Last Bowel Movement 01/04/18 01/04/18 Result Diagrams: 01/11/18 03:10 01/11/18 03:10 Laboratory Results: Laboratory Results - last 24 hr 01/08/18 01/09/18 01/10/18 00:22 09:28 03:40 WBC 4.0 RBC 2.67 L Hgb 8.2 L Hct 23.9 L MCV 89.6 MCH 30.6 MCHC 34.2 RDW 19.6 H Plt Count 33 L MPV 8.6 Prelim Diff (Auto) Slide review pending Neut % (Auto) 93.7 H Lymph % (Auto) 1.6 L [place] % (Auto) 4.7 Eos % (Auto) 0.0 Baso % (Auto) 0.0 Neut # (Auto) 3.7 Lymph # (Auto) 0.1 L [place] # (Auto) 0.2 Eos # (Auto) 0.0 Baso # (Auto) 0.0 WBC Differential . Diff Scan Auto diff confirmed Differential Comment . Platelet Estimate Low L Platelet Morphology Normal Ovalocytes 1+ H Sodium Potassium Chloride Carbon Dioxide Anion Gap BUN Creatinine Estimated GFR Random Glucose Calcium Magnesium MTS Gel Crossmatch See Detail See Detail Bld Prod Order Comment 01/10/18 03:40 WBC RBC Hgb Hct MCV MCH MCHC RDW Plt Count MPV Prelim Diff (Auto) Neut % (Auto) Lymph % (Auto) [place] % (Auto) Eos % (Auto) Baso % (Auto) Neut # (Auto) Lymph # (Auto) [place] # (Auto) Eos # (Auto) Baso # (Auto) WBC Differential Diff Scan Differential Comment Platelet Estimate Platelet Morphology Ovalocytes Sodium 143 Potassium 3.8 Chloride 109 H Carbon Dioxide 22.4 Anion Gap 12 BUN 27 H Creatinine 0.81 Estimated GFR Greater than 89 Random Glucose 142 H Calcium 7.5 L Magnesium 1.8 MTS Gel Crossmatch Bld Prod Order Comment Imaging Studies: Impressions Chest X-Ray 01/09/18 00:00 CONCLUSION: New opacity left lower lobe suspicious for inflammatory process. Medications: Active Medications Generic Name Dose Route Start Last Admin Trade Name Freq PRN Reason Stop Dose Admin Albuterol 1 ampul 01/02/18 18:29 01/08/18 14:11 Duoneb Neb (Prn) NEB 1 ampul Q2HR NEB PRN Administration WHEEZING Albuterol 1 ampul 01/02/18 20:00 01/10/18 08:36 Duoneb Neb (Helen) NEB 1 ampul Q4HR NEB HELEN Administration Atorvastatin Calcium 20 mg 01/02/18 21:00 01/09/18 21:08 Lipitor PO 20 mg HS HELEN Administration Budesonide 0.5 mg 01/08/18 10:00 01/10/18 08:36 Pulmocort Respule Neb NEB 0.5 mg Q12HR NEB HELEN Administration Calcium Carbonate 500 mg 01/06/18 10:07 01/08/18 19:00 Tums Chew CHEW 500 mg Q2H PRN Administration acid reflux Diphenhydramine HCl 25 mg 01/07/18 23:33 01/08/18 20:50 Benadryl PO 25 mg HS PRN Administration SLEEP Sodium Chloride 500 mls @ 30 mls/hr 01/08/18 01:00 01/08/18 00:32 Ns Inj IV.SIG Not Given .Q10H HELEN Piperacillin/Tazobactam/Dextrose 50 mls @ 100 mls/hr 01/09/18 14:00 01/10/18 09:45 Zosyn 3.375 Gm Premix IV.SIG 100 mls/hr Q6H HELEN Administration Diltiazem HCl 125 mg/ Sodium 125 mls @ 5 mls/hr 01/09/18 21:40 01/10/18 07:42 Chloride IV.CONT 15 mg/hr TITRATE PRN 15 mls/hr Per Protocol Administration Protocol 5 MG/HR Lactulose 30 ml 01/02/18 18:29 01/10/18 10:07 Lactulose Liq PO 30 ml DAILY PRN Administration SEVERE CONSITIPATION Lorazepam 1 mg 01/02/18 21:00 01/10/18 09:45 Ativan PO 1 mg BID HELEN Administration Methylprednisolone Sodium Succinate 60 mg 01/06/18 17:00 01/10/18 10:08 Solumedrol Inj IV.PUSH 60 mg Q6H HELEN Administration Morphine Sulfate 2 mg 01/02/18 18:29 01/10/18 09:59 Morphine Inj IV.PUSH 2 mg Q2H PRN Administration PAIN SCALE 6 TO 10 Ondansetron HCl 4 mg 01/02/18 18:29 01/04/18 17:34 Zofran Inj IV.PUSH 4 mg Q6H PRN Administration NAUSEA OR VOMITING Pantoprazole Sodium 40 mg 01/02/18 21:00 01/10/18 09:45 Protonix Inj IV.PUSH 40 mg Q12HR HELEN Administration Sodium Chloride 2 ml 01/02/18 21:00 01/10/18 09:45 Ns Flush IV.FLUSH 2 ml BID HELEN Administration Objective Remarks: GENERAL: Elderly male patient, sitting upright in bed, in no acute distress. SKIN: Warm and dry. LUE hardened, nodular skin s/p radiation, guaze drsg to forearm dry/intact. Nodular lesion to left mid back. HEAD: Normocephalic. EYES: No scleral icterus. No injection or drainage. NECK: Supple, trachea midline. CARDIOVASCULAR: Irregularly irregular without murmurs. RESPIRATORY: Anterior breath sounds clear, equal bilaterally. Labored. GASTROINTESTINAL: Abdomen soft, non-tender, nondistended. EXTREMITIES: No cyanosis, or edema. MUSCULOSKELETAL: Adequate muscle tone. NEUROLOGICAL: No obvious focal deficit. Awake, alert, and oriented x3. PSYCHIATRIC: Appropriate mood and affect; insight and judgment normal. . 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 He is currently receiving radiation therapy secondary to bleeding. Patient also has a past medical history of COPD , Reaves's, EtOH and tobacco abuse. He presented to the emergency room with complaints of some maroon/black stool. He was on Xarelto for pulmonary embolism on 12/23/2016. He was found to have a hemoglobin of 4.9. Plan: 1. Squamous cell carcinoma with metastasis to the left arm. Patient currently being treated with radiation; he has 5 remaining treatments. 2. History of pulmonary embolism on 12/23/2016. Xarelto currently on hold due to severe anemia and bleeding. 3. Patient had repeat EGD on 01/08/[address] Wilder where he was found to have robi blood in the duodenum. Also noted was two more ulcers that were clipped. 4. Platelets continue to decrease at 33 today. Hemoglobin stable at 8.2, status post transfusion of 1 unit of PRBCs yesterday. No transfusion warranted today. Continue to monitor CBC. 5. Atrial fibrillation, cardiology has been consulted with recommendations to transition to oral Cardizem once appropriate. Patient not on anticoagulation due to GI bleed and severe anemia. Currently on Cardizem drip. Management per attending and cardiology. - Attending Statement Pt seen in room 242. Plan : will discuss chemotherapy in office after D/c from hospital and completion of radiation to left arm. D/w hospitalist.
--- NOTE | 2018-01-10 10:39 | P.PNGI ---
Subjective Interval history: Resting in the bed has no obvious complaints of nausea vomiting or abdominal pain does note decreased appetite and has been tolerating clear liquids fairly well. Current hemoglobin has climbed from 7.5-8.2 over the past 24 hours without any transfusion <Shira Simons - Last Filed: 01/10/18 10:32> Physical Exam Vital signs: Vital Signs 01/09/18 10:40 01/09/18 11:03 01/09/18 12:00 Temperature 97.7 F 97.7 F 98.6 F Pulse Rate 97 H 105 H 143 H Respiratory Rate 20 20 22 Blood Pressure 141/70 H 145/79 H 138/73 Pulse Oximetry 96 99 90 L 01/09/18 12:06 01/09/18 15:50 01/09/18 15:53 Temperature 98.4 F Pulse Rate 105 H 99 H 78 Respiratory Rate 22 24 22 Blood Pressure 142/83 H Pulse Oximetry 100 01/09/18 16:34 01/09/18 19:14 01/09/18 19:20 Temperature Pulse Rate 106 H 134 H 112 H Respiratory Rate Blood Pressure 138/77 111/56 L Pulse Oximetry 01/09/18 19:59 01/09/18 20:06 01/09/18 20:27 Temperature 99.1 F Pulse Rate 144 H 101 H Respiratory Rate 20 Blood Pressure 122/74 Pulse Oximetry 98 98 01/09/18 20:28 01/09/18 21:08 01/09/18 22:05 Temperature Pulse Rate 103 H 134 H Respiratory Rate 16 20 Blood Pressure 117/92 H Pulse Oximetry 01/09/18 22:19 01/09/18 22:23 01/09/18 23:10 Temperature 98.7 F Pulse Rate 92 H 107 H 118 H Respiratory Rate 18 Blood Pressure 105/67 120/67 106/76 Pulse Oximetry 96 96 01/09/18 23:20 01/09/18 23:33 01/09/18 23:44 Temperature Pulse Rate 112 H 128 H 115 H Respiratory Rate 18 Blood Pressure 109/71 114/73 Pulse Oximetry 01/09/18 23:55 01/10/18 00:02 01/10/18 00:15 Temperature Pulse Rate 120 H 135 H 108 H Respiratory Rate Blood Pressure 118/72 121/69 Pulse Oximetry 01/10/18 00:29 01/10/18 00:43 01/10/18 00:44 Temperature Pulse Rate 111 H 94 H 99 H Respiratory Rate Blood Pressure 126/68 112/67 Pulse Oximetry 01/10/18 00:59 01/10/18 01:02 01/10/18 01:16 Temperature Pulse Rate 107 H 106 H 105 H Respiratory Rate Blood Pressure 111/63 101/74 Pulse Oximetry 01/10/18 01:35 01/10/18 02:00 01/10/18 02:29 Temperature Pulse Rate 111 H 98 H 96 H Respiratory Rate Blood Pressure 106/64 Pulse Oximetry 01/10/18 03:00 01/10/18 03:40 01/10/18 04:04 Temperature 97.6 F Pulse Rate 98 H 99 H 120 H Respiratory Rate 20 18 Blood Pressure 127/72 Pulse Oximetry 97 01/10/18 04:07 01/10/18 05:00 01/10/18 06:05 Temperature Pulse Rate 94 H 95 H 83 Respiratory Rate Blood Pressure Pulse Oximetry 01/10/18 08:41 Temperature Pulse Rate 83 Respiratory Rate 18 Blood Pressure Pulse Oximetry 96 Intake & Output 01/09/18 01/10/18 01/10/18 18:59 06:59 18:59 Intake Total 1514 / 1514 590 / 590 115 / 115 Output Total 320 / 320 575 / 575 200 / 200 Balance 1194 / 1194 - / Intake: IV 125 / 125 110 / 110 115 / 115 Cardizem Inj 125 MG In NS Inj 115 / 115 100 ML @ 5 MG/HR 5 mls/hr IV. CONT TITRATE PRN Rx#:[id number] Zosyn 3.375 GM Premix 50 ML @ 50 / 50 110 / 110 100 mls/hr IV.SIG Q6H KATIE Rx#: [id number] NS Inj 250 ML @ 15 mls/hr IV. 75 / 75 SIG ONCE KATIE Rx#:[id number] Oral 989 / 989 480 / 480 Intake (Blood Product) Amt 400 / 400 Rbc As-3 Leukoreduced Unit 400 / 400 [id number] Output: Urine 320 / 320 575 / 575 200 / 200 Other: Date of Last Bowel Movement 01/04/18 01/04/18 - Constitutional no acute distress, cachectic, chronically ill appearing - Routine HEENT Exam Head: Present: normocephalic ENT: Present: mucous membranes moist - Routine Respiratory Exam Present: accessory muscle use (Low volumes mild dyspnea but no audible wheezing or rhonchi) - Routine Cardiovascular Exam Present: S1, S2 - Routine Abdominal Exam Present: soft (Distant round, soft bowel sounds no obvious tenderness to light palpation) <KristynShira M - Last Filed: 01/10/18 10:32> Vital signs: Vital Signs 01/09/18 15:50 01/09/18 15:53 01/09/18 16:34 Temperature 98.4 F Pulse Rate 99 H 78 106 H Respiratory Rate 24 22 Blood Pressure 142/83 H Pulse Oximetry 100 01/09/18 19:14 01/09/18 19:20 01/09/18 19:59 Temperature Pulse Rate 134 H 112 H 144 H Respiratory Rate Blood Pressure 138/77 111/56 L Pulse Oximetry 01/09/18 20:06 01/09/18 20:27 01/09/18 20:28 Temperature 99.1 F Pulse Rate 101 H 103 H Respiratory Rate 20 16 Blood Pressure 122/74 Pulse Oximetry 98 98 01/09/18 21:08 01/09/18 22:05 01/09/18 22:19 Temperature Pulse Rate 134 H 92 H Respiratory Rate 20 Blood Pressure 117/92 H 105/67 Pulse Oximetry 01/09/18 22:23 01/09/18 23:10 01/09/18 23:20 Temperature 98.7 F Pulse Rate 107 H 118 H 112 H Respiratory Rate 18 Blood Pressure 120/67 106/76 109/71 Pulse Oximetry 96 96 01/09/18 23:33 01/09/18 23:44 01/09/18 23:55 Temperature Pulse Rate 128 H 115 H 120 H Respiratory Rate 18 Blood Pressure 114/73 118/72 Pulse Oximetry 01/10/18 00:02 01/10/18 00:15 01/10/18 00:29 Temperature Pulse Rate 135 H 108 H 111 H Respiratory Rate Blood Pressure 121/69 126/68 Pulse Oximetry 01/10/18 00:43 01/10/18 00:44 01/10/18 00:59 Temperature Pulse Rate 94 H 99 H 107 H Respiratory Rate Blood Pressure 112/67 Pulse Oximetry 01/10/18 01:02 01/10/18 01:16 01/10/18 01:35 Temperature Pulse Rate 106 H 105 H 111 H Respiratory Rate Blood Pressure 111/63 101/74 106/64 Pulse Oximetry 01/10/18 02:00 01/10/18 02:29 01/10/18 03:00 Temperature Pulse Rate 98 H 96 H 98 H Respiratory Rate Blood Pressure Pulse Oximetry 01/10/18 03:40 01/10/18 04:04 01/10/18 04:07 Temperature 97.6 F Pulse Rate 99 H 120 H 94 H Respiratory Rate 20 18 Blood Pressure 127/72 Pulse Oximetry 97 01/10/18 05:00 01/10/18 06:05 01/10/18 07:50 Temperature Pulse Rate 95 H 83 98 H Respiratory Rate Blood Pressure Pulse Oximetry 01/10/18 08:41 01/10/18 09:38 01/10/18 11:41 Temperature 98.3 F Pulse Rate 83 93 H 79 Respiratory Rate 18 18 Blood Pressure 117/68 Pulse Oximetry 96 98 01/10/18 12:24 01/10/18 12:35 Temperature 97.9 F Pulse Rate 88 81 Respiratory Rate 18 18 Blood Pressure 106/67 Pulse Oximetry 100 Intake & Output 01/09/18 01/10/18 01/10/18 18:59 06:59 18:59 Intake Total 1514 / 1514 590 / 590 170 / 170 Output Total 320 / 320 575 / 575 200 / 200 Balance 1194 / 1194 15 15 -30 / -30 Intake: IV 125 / 125 110 / 110 170 / 170 Cardizem Inj 125 MG In NS Inj 115 / 115 100 ML @ 5 MG/HR 5 mls/hr IV. CONT TITRATE PRN Rx#:[id number] Zosyn 3.375 GM Premix 50 ML @ 50 / 50 110 / 110 55 / 55 100 mls/hr IV.SIG Q6H KATIE Rx#: [id number] NS Inj 250 ML @ 15 mls/hr IV. 75 / 75 SIG ONCE KATIE Rx#:[id number] Oral 989 / 989 480 / 480 Intake (Blood Product) Amt 400 / 400 Rbc As-3 Leukoreduced Unit 400 / 400 [id number] Output: Urine 320 / 320 575 / 575 200 / 200 Other: Date of Last Bowel Movement 01/04/18 01/04/18 <Tony Manning - Last Filed: 01/10/18 15:41> Results - Labs CBC & Chem 7: 01/10/18 03:40 01/10/18 03:40 Laboratory Results - last 24 hr 01/08/18 01/09/18 01/10/18 00:22 09:28 03:40 WBC 4.0 RBC 2.67 L Hgb 8.2 L Hct 23.9 L MCV 89.6 MCH 30.6 MCHC 34.2 RDW 19.6 H Plt Count 33 L MPV 8.6 Prelim Diff (Auto) Slide review pending Neut % (Auto) 93.7 H Lymph % (Auto) 1.6 L [place] % (Auto) 4.7 Eos % (Auto) 0.0 Baso % (Auto) 0.0 Neut # (Auto) 3.7 Lymph # (Auto) 0.1 L [place] # (Auto) 0.2 Eos # (Auto) 0.0 Baso # (Auto) 0.0 WBC Differential . Diff Scan Auto diff confirmed Differential Comment . Platelet Estimate Low L Platelet Morphology Normal Ovalocytes 1+ H Sodium Potassium Chloride Carbon Dioxide Anion Gap BUN Creatinine Estimated GFR Random Glucose Calcium Magnesium MTS Gel Crossmatch See Detail See Detail Bld Prod Order Comment 01/10/18 03:40 WBC RBC Hgb Hct MCV MCH MCHC RDW Plt Count MPV Prelim Diff (Auto) Neut % (Auto) Lymph % (Auto) [place] % (Auto) Eos % (Auto) Baso % (Auto) Neut # (Auto) Lymph # (Auto) [place] # (Auto) Eos # (Auto) Baso # (Auto) WBC Differential Diff Scan Differential Comment Platelet Estimate Platelet Morphology Ovalocytes Sodium 143 Potassium 3.8 Chloride 109 H Carbon Dioxide 22.4 Anion Gap 12 BUN 27 H Creatinine 0.81 Estimated GFR Greater than 89 Random Glucose 142 H Calcium 7.5 L Magnesium 1.8 MTS Gel Crossmatch Bld Prod Order Comment - Imaging Impressions Chest X-Ray 01/09/18 00:00 CONCLUSION: New opacity left lower lobe suspicious for inflammatory process. <Shira Simons - Last Filed: 01/10/18 10:32> - Labs CBC & Chem 7: 01/10/18 03:40 01/10/18 03:40 Laboratory Results - last 24 hr 01/10/18 01/10/18 03:40 03:40 WBC 4.0 RBC 2.67 L Hgb 8.2 L Hct 23.9 L MCV 89.6 MCH 30.6 MCHC 34.2 RDW 19.6 H Plt Count 33 L MPV 8.6 Prelim Diff (Auto) Slide review pending Neut % (Auto) 93.7 H Lymph % (Auto) 1.6 L [place] % (Auto) 4.7 Eos % (Auto) 0.0 Baso % (Auto) 0.0 Neut # (Auto) 3.7 Lymph # (Auto) 0.1 L [place] # (Auto) 0.2 Eos # (Auto) 0.0 Baso # (Auto) 0.0 WBC Differential . Diff Scan Auto diff confirmed Differential Comment . Platelet Estimate Low L Platelet Morphology Normal Ovalocytes 1+ H Sodium 143 Potassium 3.8 Chloride 109 H Carbon Dioxide 22.4 Anion Gap 12 BUN 27 H Creatinine 0.81 Estimated GFR Greater than 89 Random Glucose 142 H Calcium 7.5 L Magnesium 1.8 <Tony Manning - Last Filed: 01/10/18 15:41> Assessment and Plan - Plan 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 He had one episode of black stool over a week ago but stools have been brown since. He is on Xarelto for upper extremity DVT. He also takes 2 Advil daily. Patient had EGD/colonoscopy on ----> Two medium sized sessile polyps were found in the rectum; polypectomy was performed with a cold snare. The colon mucosa was otherwise normal; multiple biopsies were performed. Retroflexed views revealed internal hemorrhoids. Retroflexed views revealed medium internal hemorrhoids. Revealed no abnormalities of the rectum. Irregular z line, this was biopsied. There was erythematous gastritis in the gastric antrum; multiple biopsies were performed. Normal endoscopy otherwise. Normal duodenal mucosa. Retroflexed views revealed no abnormalities. Bx showed hyperplastic polyp, and Reaves, no histopathologic abnormalities. Pt received 4 units of blood and he is to receive one more unit. - PAULIE- possibly due to above - xh of squamous cell carcinoma with mets- receiving radiation - COPD - Hx of DVT, Xarelto on hold 01/04/2018 patient is status post EGD on 01/03/2018. Findings include hiatal hernia, gastric ulcer, duodenal ulcer , clip placement. Patient has tolerated clear liquids and diet has been advanced to cardiac diet. Encouraged again to avoid any NSAIDs, results discussed with patient. Blood thinners still on hold. Anemia, appears to be stable without any obvious bleeding, no BM noted today. Not much to add from a GI perspective and we signed off but please reconsult if needed. 01/07/2018 symptomatic anemia, decrease in hemoglobin 1 g over the past 24 hours from 7.9-6.9 this a.m. patient still has some mild shortness of breath noted but is being maintained on oxygen per nasal cannula. According to the hospitalist and record patient has had some gradual improvement of his shortness of breath over the past 24 hours. Gastroenterology was asked to re-see patient today and reevaluate low hemoglobin. Will go ahead and recheck hemoglobin this a.m. stat for verification, okay for transfusion this p.m. and we will plan to do EGD in the a.m. and reevaluate for possible GI bleeding. Initial plan was for follow-up with EGD in 2 months but will need reevaluation today. 01/09/2018 patient is status post repeat EGD performed on 01/08/2018 for drop in his hemoglobin and GI bleed. Findings include Mild gastritis and duodenal ulcers with active bleeding. Patient now states he is feeling somewhat better and no obvious bleeding but hemoglobin is back down to 7.5 today after previous 9.2. Patient does note some indigestion but no obvious hematemesis. Will need GI bleed monitored with hemoglobin checks 01/10/2018 patient is resting in the bed states feels better on a daily basis and showing gradual improvement hemoglobin was 7.5 now 8.2 without any transfusion in the past 24 hours Thrombocytopenia platelet count mildly decreased to 33, monitored cautiously for patient any obvious bleeding Noted bilirubin and LFTs normal on 12/20/2017 at 0.4, 7 AST, 7 ALT, alkaline phosphatase 33, protein 4.1, and albumin 1.8. Patient states no BM in 6 days and has a history of constipation. Discussed with nurse bowel regimen meds, patient is to receive lactulose today, no suppository today secondary to low platelet count and encourage patient not to strain. Patient states he has only been on liquid diet so has not been that concerned about it. Will monitor hemoglobin, patient is status post EGDs x2 this admission and appears to be showing his gradual improvement. GI monitoring has been for patient's duodenal ulcers and gastritis. PLAN: Diet clear liquids Protonix twice daily Avoid any straining with defecation Avoid NSAIDs aspirin and anticoagulation Monitor labs and transfuse as needed, consider EGD if patient shows downward hemoglobin trends again Supportive care Patient was seen per myself and Dr. Manning, note was written on his behalf <Shira Simons - Last Filed: 01/10/18 10:32> - Plan Seen and examined with CONFIGURATION ENGINEER, agree with above. No bleeding, tolerating liquid diet. Asking to advance diet. if no bleeding can advance diet tomorrow. Protonix 40mg bid. Monitor labs. The exam, history, and the medical decision-making described in the above note were completed with the assistance of the mid-level provider. I reviewed and agree with the findings presented. I attest that I had a [id number] encounter with the patient on the same day, and personally performed and documented my assessment and findings in the medical record. <Tony Manning - Last Filed: 01/10/18 15:41>
--- NOTE | 2018-01-10 10:53 | P.CONPAL ---
Consult Service: Palliative Care Requesting Physician: Ana Norwood Reason for Consult: a. To assist with evaluation and management of symptoms including:dyspnea, pain , and general debility b. To assist medical decision maker(s) with: better understanding of current medical conditions; weighing benefits/burdens of medical treatment options; making medical treatment decisions. Primary Care Provider: Ryley Rodgers MD History of Present Illness History of Present Illness: Mr. Calderon is a 72yo gentleman with a past medical history of HTN, PAD, COPD with supplemental home 02 use, Reaves's esophagus, hyperlipidemia, nicotine dependance, significant ETOH use, and metastatic squamous cell carcinoma and is currently undergoing radiation therapy. He is due to start chemotherapy in the near future. He is also currently on Xarelto for a past DVT to the left upper extremity. He presented to [facility] ED on 01/02/18 via EMS for complaints of shortness of breath. He states that he had been experiencing dyspnea for 5 days before he felt his symptoms worsen and called paramedics for evaluation. Initial emergency room evaluation revealed: * Temp 98.7, pulse 103, respiratory rate 28, BP 101/87, oxygen saturation 98% on 3L NC * WBC 10.2, hemoglobin 4.9, hematocrit 14.5, platelets 95, RBC 1.20, neutrophils 9.5 * Carbon dioxide 17.3, Bun 55, Creatinine 1.39, estimated GFR 50, Calcium 7.7 * Albumin 2.6, AST 11, ALT 11, total bilirubin 0.4, alkaline phosphatase 52 * CXR 1. No change in left axillary soft tissue density/mass. 2. Decrease in prominence of nodular densities in the left lung. Decrease in patchy right lung parenchymal opacity. 3. Degenerative findings of the thoracic spine and diffuse atherosclerotic disease again noted. * Chest CT 1. No change in left axillary soft tissue density/mass. 2. Decrease in prominence of nodular densities in the left lung. Decrease in patchy right lung parenchymal opacity. 3. Degenerative findings of the thoracic spine and diffuse atherosclerotic disease again noted. The patient was admitted with severe iron deficiency anemia, tachycardia, and dyspnea. He was given 4 units of PRBC and serial labs were ordered. Dr. Wilder from GI was consulted and EGD was done on 01/03/18. Mr. Calderon was found to have a small hiatal hernia with possible Romie ulcer. He was also noted to have multiple duodenal ulcers, on of which was actively bleeding and subsequently clipped. PPI therapy was recommended and the patient's diet was increased. H&H levels for stable for 2 days and GI signed off. On 01/07/18 the patient's hemoglobin dropped again and GI was reconsulted. Repeat EGD on revealed mild gastritis and more duodenal bleeding ulcers. Dr. Teran (oncology) was consulted to monitor his ongoing status with squamous cell carcinoma as well as recent complaints of pain and lesions to his left upper extremity where he underwent radiation. Dr Silverman (cardiology) was consulted on 01/10/18 after the patient went into Afib with RVR. He was placed on a diltiazem drip and given his current instability with his GI tract it was decided to leave him on the drip until he could better tolerate PO therapy. The patient currently remains off any anticoagulant therapy. Palliative care was consulted to assist with symptom management revolving around pain, increased work of breathing, and sleep as well as to assist with goals of medical treatment. Today, the patient was was examined in the room shortly after receiving physical therapy. The visit was conducted in conjunction with ARIELLE Mirza. He ambulated from the bed to the chair with walker assist. The patient reports that his breathing is 'fine' but he clearly shows signs of labored breathing. He does state that he gets short of breath even after eating a meal. He is currently on 4L NC. He states that his appetite has been 'not bad but not great'. He originally attributed this to hospital food , but then admitted that even at home his appetite has not been the best. He denies any recent abnormal weight gain or loss. He denies any nausea, vomiting, or abdominal pain. Most of his complaints revolve around his pain to his left upper extremity. He describes this as a tingling pain that radiates down to his finger tips. It can be, at times severe, particularly with movement or if he lays on his left side. Currently his pain level is a 3-4, which he feels is acceptable. Further discussion about goals, etc per family conference. Function/Cognitive Trajectory: Ambulates at home without assist though is dependent on oxygen, by report, it was mostly at night. Cognitively sharp, with no deficits reported and able to perform most ADL's on his own Review of Systems Constitutional: Reports anorexia Cardiovascular: Reports fast heart rate, Reports irregular heart rhythm, Reports shortness of breath, Reports shortness of breath with activity Respiratory: Reports shortness of breath, Reports shortness of breath with activity Musculoskeletal: Reports joint pain, Reports limited joint movement, Reports muscle weakness, Reports tingling Skin/Breast: Reports lesions Psychiatric: Reports abnormal sleep pattern, Reports change in appetite PMFSH - History History Provided By: Patient - Medical History Medical History: Medical History (Last Updated 01/10/18 @ 12:40 by ARIELLE Gamez) Barretts esophagus FHx: radiation therapy GERD (gastroesophageal reflux disease) HTN (hypertension) High cholesterol History of blood transfusion History of chemotherapy Squamous cell carcinoma of upper extremity Alcohol dependence Anxiety Barretts esophagus COPD (chronic obstructive pulmonary disease) GERD (gastroesophageal reflux disease) Hyperlipidemia Hypertension Hypothyroidism Lymphedema of left upper extremity Peripheral arterial disease Skin cancer Squamous cell carcinoma of unknown origin - Surgical History Surgical History: Surgical History (Last Reviewed 01/10/18 @ 12:41 by ARIELLE Gamez) Port-A-Cath in place (Acute) Hx of hernia repair Hx of shoulder surgery Abnormal colonoscopy H/O angioplasty History of hip replacement Status post bilateral total hip replacement - Family History Family History: Family History (Last Reviewed 01/04/18 @ 16:21 by Noelle Hendrix) Mother Natural with unknown cause - Social History I have reviewed the patient's Social History: Yes - Tobacco History Second Hand Smoke Exposure: No Tobacco Use In Past 30 Days: Yes Smoking Status: Current every day smoker Tobacco Type: Cigarettes - Alcohol History How Often Do You Have a Drink Containing Alcohol: 2 to 4 times a month - Substance Use History Substance History: No History of Abuse - Travel History History of Recent Travel: No Recent Travel in the [place] Within the Last 8 Weeks: No Recent Travel Out of the Country Within the Last 8 Weeks: No - Immunization History Tetanus Immunization: >5 Years Hx Influenza Vaccine This Season: No Medications and Allergies Allergies Allergy/AdvReac Type Severity Reaction Status Date / Time No Known Allergies Allergy Verified 01/02/18 16:11 Home Medications Medication Instructions Recorded Confirmed Type albuterol sulfate [Ventolin HFA] 2 puff INHALATION Q4-6H PRN 10/29/17 01/02/18 History atorvastatin 20 mg PO HS 10/29/17 01/02/18 History ipratropium-albuterol 3 ml INHALATION QID PRN 10/29/17 01/02/18 History lisinopril 10 mg PO BID 10/29/17 01/02/18 History lorazepam 1 mg PO BID 10/29/17 01/02/18 History pantoprazole 40 mg PO DAILY 10/29/17 01/02/18 History metoprolol tartrate 50 mg PO BID 01/02/18 01/02/18 History Active Medications: Active Medications Acetaminophen (Tylenol) 650 mg PO Q6H PRN PRN Reason: PAIN 1-10 AND/OR FEVER >101F Al Hydroxide/Mg Hydroxide (Milk Of Jaimie Coley) 30 ml PO Q12H PRN PRN Reason: Mild Constipation Albuterol (Duoneb Neb (Prn)) 1 ampul NEB Q2HR NEB PRN PRN Reason: WHEEZING Last Admin: 01/08/18 14:11 Dose: 1 ampul Albuterol (Duoneb Neb (Helen)) 1 ampul NEB Q4HR NEB HELEN Last Admin: 01/10/18 08:36 Dose: 1 ampul Atorvastatin Calcium (Lipitor) 20 mg PO HS HELEN Last Admin: 01/09/18 21:08 Dose: 20 mg Budesonide (Pulmocort Respule Neb) 0.5 mg NEB Q12HR NEB HELEN Last Admin: 01/10/18 08:36 Dose: 0.5 mg Calcium Carbonate (Tums Chew) 500 mg CHEW Q2H PRN PRN Reason: acid reflux Last Admin: 01/08/18 19:00 Dose: 500 mg Diphenhydramine HCl (Benadryl) 25 mg PO HS PRN PRN Reason: SLEEP Last Admin: 01/08/18 20:50 Dose: 25 mg Sodium Chloride (Ns Inj) 500 mls @ 30 mls/hr IV.SIG .Q10H HELEN Last Admin: 01/08/18 00:32 Dose: Not Given Piperacillin/Tazobactam/Dextrose (Zosyn 3.375 Gm Premix) 50 mls @ 100 mls/hr IV.SIG Q6H HELEN Last Admin: 01/10/18 09:45 Dose: 100 mls/hr Diltiazem HCl 125 mg/ Sodium (Chloride) 125 mls @ 5 mls/hr IV.CONT TITRATE PRN ; Protocol PRN Reason: Per Protocol Last Admin: 01/10/18 07:42 Dose: 15 mg/hr, 15 mls/hr Lactulose (Lactulose Liq) 30 ml PO DAILY PRN PRN Reason: SEVERE CONSITIPATION Last Admin: 01/10/18 10:07 Dose: 30 ml Lorazepam (Ativan) 1 mg PO BID [facility] Last Admin: 01/10/18 09:45 Dose: 1 mg Methylprednisolone Sodium Succinate (Solumedrol Inj) 60 mg IV.PUSH Q6H [facility] Last Admin: 01/10/18 10:08 Dose: 60 mg Morphine Sulfate (Morphine Inj) 2 mg IV.PUSH Q2H PRN PRN Reason: PAIN SCALE 6 TO 10 Last Admin: 01/10/18 09:59 Dose: 2 mg Ondansetron HCl (Zofran Inj) 4 mg IV.PUSH Q6H PRN PRN Reason: NAUSEA OR VOMITING Last Admin: 01/04/18 17:34 Dose: 4 mg Pantoprazole Sodium (Protonix Inj) 40 mg IV.PUSH Q12HR [facility] Last Admin: 01/10/18 09:45 Dose: 40 mg Sodium Chloride (Ns Flush) 2 ml IV.FLUSH BID [facility] Last Admin: 01/10/18 09:45 Dose: 2 ml Sodium Chloride (Ns Flush) 2 ml IV.FLUSH PRN PRN PRN Reason: FLUSH AFTER USING IV ACCESS Advance Directives Living Will: No Healthcare Surrogate: No Power of At Risk Specialist: No Ethical and Legal Issues: Patient is currently appears capable of making his own decisions. Should his capacity change, per [place] statues his , Roma Calderon, would be health care proxy Physical Exam Vital Signs: Vital Signs - 24 hr 01/09/18 11:03 01/09/18 12:00 01/09/18 12:06 Temperature 97.7 F 98.6 F Pulse Rate 105 H 143 H 105 H Respiratory Rate 20 22 22 Blood Pressure 145/79 H 138/73 Pulse Oximetry 99 90 L 01/09/18 15:50 01/09/18 15:53 01/09/18 16:34 Temperature 98.4 F Pulse Rate 99 H 78 106 H Respiratory Rate 24 22 Blood Pressure 142/83 H Pulse Oximetry 100 01/09/18 19:14 01/09/18 19:20 01/09/18 19:59 Temperature Pulse Rate 134 H 112 H 144 H Respiratory Rate Blood Pressure 138/77 111/56 L Pulse Oximetry 01/09/18 20:06 01/09/18 20:27 01/09/18 20:28 Temperature 99.1 F Pulse Rate 101 H 103 H Respiratory Rate 20 16 Blood Pressure 122/74 Pulse Oximetry 98 98 01/09/18 21:08 01/09/18 22:05 01/09/18 22:19 Temperature Pulse Rate 134 H 92 H Respiratory Rate 20 Blood Pressure 117/92 H 105/67 Pulse Oximetry 01/09/18 22:23 01/09/18 23:10 01/09/18 23:20 Temperature 98.7 F Pulse Rate 107 H 118 H 112 H Respiratory Rate 18 Blood Pressure 120/67 106/76 109/71 Pulse Oximetry 96 96 01/09/18 23:33 01/09/18 23:44 01/09/18 23:55 Temperature Pulse Rate 128 H 115 H 120 H Respiratory Rate 18 Blood Pressure 114/73 118/72 Pulse Oximetry 01/10/18 00:02 01/10/18 00:15 01/10/18 00:29 Temperature Pulse Rate 135 H 108 H 111 H Respiratory Rate Blood Pressure 121/69 126/68 Pulse Oximetry 01/10/18 00:43 01/10/18 00:44 01/10/18 00:59 Temperature Pulse Rate 94 H 99 H 107 H Respiratory Rate Blood Pressure 112/67 Pulse Oximetry 01/10/18 01:02 01/10/18 01:16 01/10/18 01:35 Temperature Pulse Rate 106 H 105 H 111 H Respiratory Rate Blood Pressure 111/63 101/74 106/64 Pulse Oximetry 01/10/18 02:00 01/10/18 02:29 01/10/18 03:00 Temperature Pulse Rate 98 H 96 H 98 H Respiratory Rate Blood Pressure Pulse Oximetry 01/10/18 03:40 01/10/18 04:04 01/10/18 04:07 Temperature 97.6 F Pulse Rate 99 H 120 H 94 H Respiratory Rate 20 18 Blood Pressure 127/72 Pulse Oximetry 97 01/10/18 05:00 01/10/18 06:05 01/10/18 07:50 Temperature Pulse Rate 95 H 83 98 H Respiratory Rate Blood Pressure Pulse Oximetry 01/10/18 08:41 01/10/18 09:38 Temperature 98.3 F Pulse Rate 83 93 H Respiratory Rate 18 18 Blood Pressure 117/68 Pulse Oximetry 96 98 I&O: Intake & Output 01/08/18 01/09/18 01/10/18 01/11/18 06:59 06:59 06:59 06:59 Intake Total 2190 / 2190 980 / 980 2104 / 2104 115 / 115 Output Total 1350 / 1350 1200 / 1200 895 / 895 200 / 200 Balance 840 / 840 -220 / -220 1209 / 1209 -85 / -85 Weight 89 kg 89 kg Physical Exam: CONSTITUTIONAL/GENERAL: This is an adequately nourished patient, in no apparent distress. TUBES/LINES/DRAINS: right chest port, PIV SKIN: lesions noted to left upper extremity and chest wall. Skin temperature appropriate. Not diaphoretic. HEAD: Atraumatic. Normocephalic. EYES: Pupils equal and round and reactive. No scleral icterus. No injection or drainage. Fundi not examined. ENT: Hearing grossly normal. Nose without bleeding or purulent drainage. Throat without visible erythema, exudates, masses, or lesions. NECK: Trachea midline. Supple, nontender. CARDIOVASCULAR: Irregular rate and rhythm without murmurs, gallops, or rubs. No JVD. Peripheral pulses symmetric. RESPIRATORY/CHEST:Labored respirations with accessory muscle use. Clear to auscultation, though diminished throughout. Breath sounds equal bilaterally. No wheezes, rales, or rhonchi. GASTROINTESTINAL: Abdomen soft, non-tender, nondistended. No palpable masses. No guarding. Bowel sounds present. MUSCULOSKELETAL: Left extremity noticeably edematous compared to right . ROM to LUE severely diminished LYMPHATICS: No palpable cervical or supraclavicular adenopathy. NEUROLOGICAL: Awake and alert. Motor and sensory grossly within normal limits. Follows commands. Cognitively sharp. Moves all extremities. PSYCHIATRIC: No obvious anxiety/depression. no apparent hallucinations or other psychotic thought process. Diagnostic Tests Laboratory: Laboratory Results - last 72 hr 01/06/18 01/07/18 01/07/18 12:28 05:54 09:48 WBC RBC Hgb Hct MCV MCH MCHC RDW Plt Count MPV Prelim Diff (Auto) Neut % (Auto) Lymph % (Auto) [place] % (Auto) Eos % (Auto) Baso % (Auto) Neut # (Auto) Lymph # (Auto) [place] # (Auto) Eos # (Auto) Baso # (Auto) WBC Differential Diff Scan Differential Comment Platelet Estimate Platelet Morphology Ovalocytes Sodium Potassium Chloride Carbon Dioxide Anion Gap BUN Creatinine Estimated GFR Random Glucose Calcium Magnesium Total Bilirubin AST ALT Alkaline Phosphatase Total Protein Albumin Blood Type Antibody Screen MTS Gel Crossmatch See Detail See Detail See Detail Bld Prod Order Comment 01/07/18 01/07/18 01/07/18 10:51 19:49 22:28 WBC RBC Hgb 7.2 L 8.2 L Hct 24.0 L MCV MCH MCHC RDW Plt Count MPV Prelim Diff (Auto) Neut % (Auto) Lymph % (Auto) [place] % (Auto) Eos % (Auto) Baso % (Auto) Neut # (Auto) Lymph # (Auto) [place] # (Auto) Eos # (Auto) Baso # (Auto) WBC Differential Diff Scan Differential Comment Platelet Estimate Platelet Morphology Ovalocytes Sodium Potassium Chloride Carbon Dioxide Anion Gap BUN Creatinine Estimated GFR Random Glucose Calcium Magnesium Total Bilirubin AST ALT Alkaline Phosphatase Total Protein Albumin Blood Type Antibody Screen MTS Gel Crossmatch See Detail DuraSweeperd Prod Order Comment 01/08/18 01/08/18 01/08/18 00:22 08:21 08:21 WBC 6.0 RBC 3.05 L Hgb 9.2 L Hct 27.0 L MCV 88.5 D MCH 30.3 MCHC 34.2 RDW 19.8 H D Plt Count 35 L MPV 7.1 Prelim Diff (Auto) Slide review pending Neut % (Auto) 94.0 H Lymph % (Auto) 1.8 L [place] % (Auto) 4.1 Eos % (Auto) 0.0 Baso % (Auto) 0.1 Neut # (Auto) 5.6 Lymph # (Auto) 0.1 L [place] # (Auto) 0.2 Eos # (Auto) 0.0 Baso # (Auto) 0.0 WBC Differential . Diff Scan Auto diff confirmed Differential Comment . Platelet Estimate Low L Platelet Morphology Normal Ovalocytes 1+ H Sodium 141 Potassium 3.5 Chloride 110 H Carbon Dioxide 20.2 L Anion Gap 11 BUN 42 H Creatinine 0.83 Estimated GFR Greater than 89 Random Glucose 162 H Calcium 7.7 L Magnesium Total Bilirubin AST ALT Alkaline Phosphatase Total Protein Albumin Blood Type A Negative Antibody Screen Negative MTS Gel Crossmatch See Detail Bld Prod Order Comment 01/09/18 01/09/18 01/09/18 04:32 04:32 09:28 WBC 4.0 RBC 2.51 L Hgb 7.5 L Hct 22.3 L MCV 88.8 MCH 30.0 MCHC 33.7 RDW 20.5 H Plt Count 35 L MPV 7.6 Prelim Diff (Auto) Slide review pending Neut % (Auto) 94.2 H Lymph % (Auto) 1.6 L [place] % (Auto) 4.2 Eos % (Auto) 0.0 Baso % (Auto) 0.0 Neut # (Auto) 3.8 Lymph # (Auto) 0.1 L [place] # (Auto) 0.2 Eos # (Auto) 0.0 Baso # (Auto) 0.0 WBC Differential . Diff Scan Auto diff confirmed Differential Comment . Platelet Estimate Low L Platelet Morphology Normal Ovalocytes 1+ H Sodium 142 Potassium 3.7 Chloride 110 H Carbon Dioxide 22.9 Anion Gap 9 BUN 33 H Creatinine 0.81 Estimated GFR Greater than 89 Random Glucose 166 H Calcium 7.6 L Magnesium Total Bilirubin 0.4 AST 7 L ALT 7 L Alkaline Phosphatase 33 L Total Protein 4.1 L Albumin 1.8 L Blood Type Antibody Screen MTS Gel Crossmatch See Detail DuraSweeperd Prod Order Comment 01/10/18 01/10/18 03:40 03:40 WBC 4.0 RBC 2.67 L Hgb 8.2 L Hct 23.9 L MCV 89.6 MCH 30.6 MCHC 34.2 RDW 19.6 H Plt Count 33 L MPV 8.6 Prelim Diff (Auto) Slide review pending Neut % (Auto) 93.7 H Lymph % (Auto) 1.6 L [place] % (Auto) 4.7 Eos % (Auto) 0.0 Baso % (Auto) 0.0 Neut # (Auto) 3.7 Lymph # (Auto) 0.1 L [place] # (Auto) 0.2 Eos # (Auto) 0.0 Baso # (Auto) 0.0 WBC Differential . Diff Scan Auto diff confirmed Differential Comment . Platelet Estimate Low L Platelet Morphology Normal Ovalocytes 1+ H Sodium 143 Potassium 3.8 Chloride 109 H Carbon Dioxide 22.4 Anion Gap 12 BUN 27 H Creatinine 0.81 Estimated GFR Greater than 89 Random Glucose 142 H Calcium 7.5 L Magnesium 1.8 Total Bilirubin AST ALT Alkaline Phosphatase Total Protein Albumin Blood Type Antibody Screen MTS Gel Crossmatch Bld Prod Order Comment Result Diagrams: 01/10/18 03:40 01/10/18 03:40 Imaging: Chest CT 01/02/18 00:00 CONCLUSION: 1. No change in left axillary soft tissue density/mass. 2. Decrease in prominence of nodular densities in the left lung. Decrease in patchy right lung parenchymal opacity. 3. Degenerative findings of the thoracic spine and diffuse atherosclerotic disease again noted. Chest X-Ray 01/02/18 16:30 CONCLUSION: No acute cardiopulmonary disease. Chest X-Ray 01/06/18 00:00 CONCLUSION: 1. Bibasilar streakiness consistent with atelectasis and/or mild infiltrates. 2. Chronic elevation of the right hemidiaphragm. Chest X-Ray 01/09/18 00:00 CONCLUSION: New opacity left lower lobe suspicious for inflammatory process. Procedures: 01/03/18 EGD - showed actively bleeding duodenal ulcer with clipping 01/09/18 Repeat EGD - again with active bleeding of duodenal ulcer Patient/Family Conference Family Conference Location: Bedside Issues Discussed: Discussion with the patient included the following: * Palliative care role, purpose, approach * Additional medical, psychosocial, and spiritual history * Patients general health, functional status, and cognitive changes in the months leading up to the current hospitalization * Patient understanding of the current medical problems; reviewed multiple complex issues and high risk for multiple complications which could inhibit further cancer treatment * Patient understanding of prognosis * Patients goals of care; he hopes to stable current acute issues in order to resume malignancy treatment * Current medical treatment options and benefits/burdens of those options; review of antidepressants, pain control, possible sleep aids, etc. * Questions answered to the best of my ability * Code status - benefits and burdens of CPR/life support reviewed. Patient endorses that he would like CPR and wishes to remain a FULL CODE * Palliative care contact information provided Patient understands gravity of condition. At this point he, he is hopeful his condition can be stabilized enough to where he can be discharged and continue with cancer treatments. Assessment and Plan - Disease Oriented Problem List (1) Thrombocytopenia (2) Metastatic squamous cell carcinoma (3) COPD (chronic obstructive pulmonary disease) (4) Acute GI bleeding (5) Duodenal ulceration (6) New onset a-fib - Symptom Scale (1) Dyspnea 0-10 Scale: Unable to quantify (2) Pain 0-10 Scale: 10 (3) Insomnia 0-10 Scale: Unable to quantify Pertinent Non-Medical Issues: Psychosocial: Retired, born in [place] and moved to [place] in 1985. Currently and states the couple have no biological children. He also denies any children on his own Spiritual: Islam Legal: There are no know legal issues at this time Ethical issues impacting care: There are currently no ethical issues impacting Mr. Calderon's care Important Contacts: Roma Calderon, /HCP: [phone] Prognosis: With continued aggressive medical treatment, the patient may be able to stabilize and continue current cancer treatments. Given multiple, complex medical issues the patient is at high risk for mortality and would be hospice appropriate if goals were compatible Code Status: Full Code Plan: * Legal decision maker: Patient is currently able to make his own medical decisions, though if he were unable to do so, his Roma Calderon would be healthcare proxy * Goals: Patient understands gravity of condition. At this point he, he is hopeful his condition can be stabilized enough to where he can be discharged and continue with cancer treatments. * CODE STATUS: FULL CODE, risks and benefits of CPR/ventilator use discussed with patient and he wishes for aggressive treatment up to and including, CPR and intubation * SYMPTOMS:Dyspnea - long standing COPD with O2 dependence, concern for inflammatory process this admission. CT pending. Currently SOB with any activity including eating. On nebulizer and steroid treatments. At high risk for increased decompensation. Pain - can be as severe as a 10, mostly revolves around movement but can be spontaneous. Does appear to have a neuropathic or inflammation component as well. Currently on 2mg Morphine IVP Q2H. May benefit from Gabapentin or Lyrica if neuropathic pain persists after edema improves. Currently on IV corticosteroids for breathing, should help some with inflammatory pain related issues. 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 Insomnia - most likely multifactorial including pain, and hospital environment. By report this is a long standing issue if persistent can consider melatonin use * Discussed with medical attending and home care giver will continue to follow during hospital course as condition evolves, to assist patient/decision-maker with understanding of medical conditions, weighing benefits/burdens of treatment options, for clarification of goals of treatment. Additionally will assist with any symptoms of palliative concern add my plan Appreciation Thank you for the opportunity to participate in the care of Tee Calderon. Attestation Collaborating MD Comments: Dual visit, pt seen w Steve GUZMÁN. Concur with above documentation/plan. Attestation: To help prompt me to consider important information that might be impacting today's encounter and assessment, information from prior notes written by myself or my colleagues may have been "brought forward" into today's note. My signature on this note, however, is an attestation that I personally performed the exam, history, and/or decision-making noted today, and, unless otherwise indicated, the interactions with patient, family, and staff as well as the review of records all occurred today. I also attest that the listed assessment and stated plan reflect my best clinical judgment today based on the combination of historical information, prior notes, and today's exam/ interactions. When time spent is documented, it refers only to time spent today by the signer, or if indicated, combined time spent today by collaborating physician/nurse practitioner.
--- NOTE | 2018-01-10 15:09 | P.PNIM ---
Subjective Interval history: Pt developed A. fib RVR yesterday evening and was started on Cardizem gtt. Pt is currently still on Cardizem gtt at a rate of 15mls/hr but is rate controlled. Physical Exam Vital signs: Vital Signs 01/09/18 15:50 01/09/18 15:53 01/09/18 16:34 Temperature 98.4 F Pulse Rate 99 H 78 106 H Respiratory Rate 24 22 Blood Pressure 142/83 H Pulse Oximetry 100 01/09/18 19:14 01/09/18 19:20 01/09/18 19:59 Temperature Pulse Rate 134 H 112 H 144 H Respiratory Rate Blood Pressure 138/77 111/56 L Pulse Oximetry 01/09/18 20:06 01/09/18 20:27 01/09/18 20:28 Temperature 99.1 F Pulse Rate 101 H 103 H Respiratory Rate 20 16 Blood Pressure 122/74 Pulse Oximetry 98 98 01/09/18 21:08 01/09/18 22:05 01/09/18 22:19 Temperature Pulse Rate 134 H 92 H Respiratory Rate 20 Blood Pressure 117/92 H 105/67 Pulse Oximetry 01/09/18 22:23 01/09/18 23:10 01/09/18 23:20 Temperature 98.7 F Pulse Rate 107 H 118 H 112 H Respiratory Rate 18 Blood Pressure 120/67 106/76 109/71 Pulse Oximetry 96 96 01/09/18 23:33 01/09/18 23:44 01/09/18 23:55 Temperature Pulse Rate 128 H 115 H 120 H Respiratory Rate 18 Blood Pressure 114/73 118/72 Pulse Oximetry 01/10/18 00:02 01/10/18 00:15 01/10/18 00:29 Temperature Pulse Rate 135 H 108 H 111 H Respiratory Rate Blood Pressure 121/69 126/68 Pulse Oximetry 01/10/18 00:43 01/10/18 00:44 01/10/18 00:59 Temperature Pulse Rate 94 H 99 H 107 H Respiratory Rate Blood Pressure 112/67 Pulse Oximetry 01/10/18 01:02 01/10/18 01:16 01/10/18 01:35 Temperature Pulse Rate 106 H 105 H 111 H Respiratory Rate Blood Pressure 111/63 101/74 106/64 Pulse Oximetry 01/10/18 02:00 01/10/18 02:29 01/10/18 03:00 Temperature Pulse Rate 98 H 96 H 98 H Respiratory Rate Blood Pressure Pulse Oximetry 01/10/18 03:40 01/10/18 04:04 01/10/18 04:07 Temperature 97.6 F Pulse Rate 99 H 120 H 94 H Respiratory Rate 20 18 Blood Pressure 127/72 Pulse Oximetry 97 01/10/18 05:00 01/10/18 06:05 01/10/18 07:50 Temperature Pulse Rate 95 H 83 98 H Respiratory Rate Blood Pressure Pulse Oximetry 01/10/18 08:41 01/10/18 09:38 01/10/18 11:41 Temperature 98.3 F Pulse Rate 83 93 H 79 Respiratory Rate 18 18 Blood Pressure 117/68 Pulse Oximetry 96 98 01/10/18 12:24 01/10/18 12:35 Temperature 97.9 F Pulse Rate 88 81 Respiratory Rate 18 18 Blood Pressure 106/67 Pulse Oximetry 100 Intake & Output 01/09/18 01/10/18 01/10/18 18:59 06:59 18:59 Intake Total 1514 / 1514 590 / 590 170 / 170 Output Total 320 / 320 575 / 575 200 / 200 Balance 1194 / 1194 15 / 15 -30 / -30 Intake: IV 125 / 125 110 / 110 170 / 170 Cardizem Inj 125 MG In NS Inj 115 / 115 100 ML @ 5 MG/HR 5 mls/hr IV. CONT TITRATE PRN Rx#:[id number] Zosyn 3.375 GM Premix 50 ML @ 50 / 50 110 / 110 55 / 55 100 mls/hr IV.SIG Q6H KATIE Rx#: [id number] NS Inj 250 ML @ 15 mls/hr IV. 75 / 75 SIG ONCE KATIE Rx#:[id number] Oral 989 / 989 480 / 480 Intake (Blood Product) Amt 400 / 400 Rbc As-3 Leukoreduced Unit 400 / 400 [id number] Output: Urine 320 / 320 575 / 575 200 / 200 Other: Date of Last Bowel Movement 01/04/18 01/04/18 Narrative: General: NAD, AAOx3 Skin: Left chest wall nodular metastatic skin changes. Chest: Slight wheezing on the right side Cardiac: Regular Abd: +BS, soft ND/Nt Ext: Left arm swelling, left arm nodular areas of scc mets and area of ulceration l Results - Labs CBC & Chem 7: 01/15/18 04:30 01/13/18 05:10 Laboratory Results - last 24 hr 01/09/18 01/10/18 01/10/18 09:28 03:40 03:40 WBC 4.0 RBC 2.67 L Hgb 8.2 L Hct 23.9 L MCV 89.6 MCH 30.6 MCHC 34.2 RDW 19.6 H Plt Count 33 L MPV 8.6 Prelim Diff (Auto) Slide review pending Neut % (Auto) 93.7 H Lymph % (Auto) 1.6 L Cass % (Auto) 4.7 Eos % (Auto) 0.0 Baso % (Auto) 0.0 Neut # (Auto) 3.7 Lymph # (Auto) 0.1 L Cass # (Auto) 0.2 Eos # (Auto) 0.0 Baso # (Auto) 0.0 WBC Differential . Diff Scan Auto diff confirmed Differential Comment . Platelet Estimate Low L Platelet Morphology Normal Ovalocytes 1+ H Sodium 143 Potassium 3.8 Chloride 109 H Carbon Dioxide 22.4 Anion Gap 12 BUN 27 H Creatinine 0.81 Estimated GFR Greater than 89 Random Glucose 142 H Calcium 7.5 L Magnesium 1.8 MTS Gel Crossmatch See Detail - Imaging Chest CT 01/02/18 00:00 CONCLUSION: 1. No change in left axillary soft tissue density/mass. 2. Decrease in prominence of nodular densities in the left lung. Decrease in patchy right lung parenchymal opacity. 3. Degenerative findings of the thoracic spine and diffuse atherosclerotic disease again noted. Chest X-Ray 01/02/18 16:30 CONCLUSION: No acute cardiopulmonary disease. Chest X-Ray 01/06/18 00:00 CONCLUSION: 1. Bibasilar streakiness consistent with atelectasis and/or mild infiltrates. 2. Chronic elevation of the right hemidiaphragm. Chest X-Ray 01/09/18 00:00 CONCLUSION: New opacity left lower lobe suspicious for inflammatory process. 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 - Cont. with Cefazolin to cover staph. - Appreciate wound care recommendations Acute on chronic anemia. acute blood loss from gib. Gastric and duodenal ulcerations EtOH abuse - Pt underwent evaluation with EGD (01/03/18) - The esophagus this appeared to be unremarkable and within normal limits - Small hiatal hernia with a linear ulceration in the gastric cardia possibly representing a Romie ulcer, no visible vessel, no active bleeding this was biopsied - The duodenum there were multiple ulcerations noted in the duodenal bulb and the descending duodenum most were superficial and clean based one was actively bleeding just distal to the ampulla a small vessel was noted and so a clip was placed and no further bleeding was noted biopsies were taken from the ulcer sites - Pt tolerating advanced diet - H/H decreased again today from 10.2/29.6 (01/04)--> 8.3/24.1 (01/05) --> 7.9/ 23.3 (01/06) --> 1 unit PRBCs --> 6.9/20.3 (01/07)--> 2units PRBCs--> 9.2/27.0 () --> 7.5/22.3 (01/09) --> 8.2/23.9 (01/10) - Pt underwent evaluation with repeat EGD (01/08) --> Mild gastritis and two duodenal ulcers with active bleeding s/p clipping - Cont. Clear liquid diet - Pt was transfused with another 1 unit PRBCs on 01/09/18. He has had a total of 10 units PRBCs since admission. - Cont. Protonix 40mg Q12H - TUMS Q2H PRN - Monitor H/H closely and for any signs of active GIB A. fib RVR - On 01/09/18 pt developed A. fib RVR and was started on Cardizem gtt - Cardiology was consulted - Pt is currently rate controlled but is still on 15mls/hr of the Cardizem - Start weaning down on Cardizem gtt and will convert to oral Cardizem 60mg Q6H and monitor on telemetry - Pt is not a candidate for anticoagulants due to GIB COPD - Pt complained of SOB this morning - Chest X-Ray (01/06/18) 1. Bibasilar streakiness consistent with atelectasis and/or mild infiltrates. 2. Chronic elevation of the right hemidiaphragm. - Cont nebs and o2 - Cont. Solu-Medrol 60mg Q6H - Add Budesonide nebs BID on 01/08 - Pt was given one time dose of Lasix 20mg and KCl 40meq on 01/06 - Repeat CXR on 01/09 --> New opacity left lower lobe suspicious for inflammatory process. Concerning for new pna left lung. - Await Non-contrast Chest CT today - Abx were changed from Cefazolin to Zosyn on 01/09/18 (2) GIB (gastrointestinal bleeding) Code(s): K92.2 - Gastrointestinal hemorrhage, unspecified Status: Acute (3) Gastric ulceration Code(s): K25.9 - Gastric ulcer, unspecified as acute or chronic, without hemorrhage or perforation Status: Acute (4) Duodenal ulceration Code(s): K26.9 - Duodenal ulcer, unspecified as acute or chronic, without hemorrhage or perforation Status: Acute - Attending Attestation Patient examined. Assessment and plan formulated with Ana Norwood PA-C. Jes agree with the above.
[2018-01-10] MEDS: dilTIAZem 60 MG Tablet PO SCH ×2 (17:55→21:58)
--- NOTE | 2018-01-10 18:37 | ECG ---
Date Performed: 01/09/2018 Time Performed: 19:13:26 PTAGE: 72 years EKG: Atrial fibrillation with uncontrolled ventricular response Extensive ST-T changes may be du e to myocardial ischemia Abnormal ECG PREVIOUS TRACING : 01/02/2018 16.39 DOCTOR: Rosenda Solano Interpretating Date/Time 01/10/2018 18:33:42
--- NOTE | 2018-01-10 23:28 | CT ---
EXAM DATE: 01/10/2018 9:25 PM EDT AGE/SEX: 72 years / Male INDICATIONS: Short of breath. CLINICAL DATA: This is the patient's initial encounter. Patient reports that signs and symptoms have been present for 1 day and indicates a pain score of 5/10. MEDICAL/SURGICAL HISTORY: Lymphoma. Gastroesophageal reflux disease. Chronic obstructive pulmonar y disease. ETOH . Angioplasty. RADIATION DOSE: 9.59 CTDI (mGy) COMPARISON: [facility] – [place], CT CHEST W/O CONTRAST, 01/02/2018. . TECHNIQUE: Multiple contiguous axial images were obtained through the chest without contrast. Image s were obtained in suspended respiration using multiple row detector helical technique. Using automa katlin exposure control and adjustment of the mA and/or kV according to patient size, radiation dose was kept as low as reasonably achievable to obtain optimal diagnostic quality images. DICOM format imag e data is available electronically for review and comparison. FINDINGS: Lungs: There are new scattered areas of groundglass opacity in the left mid and lateral lung without consolidation. There is also mild compressive atelectasis adjacent to the left pleural effusion. Mediastinum: There is good visualization of the great vessels of the middle mediastinum. No evidenc e of mediastinal or hilar adenopathy/mass. Prominent coronary artery calcifications. Pleurae: There is a moderate size left pleural effusion measuring up to 5.7 cm in thickness. There i s a small right pleural effusion measuring 1.3 cm. Both pleural effusions are new findings when jesús red to 01/02/2018. Axillae: 7.1 cm left axillary mass with ill-defined margins and obscuration of the margins with the pectoralis, stable in configuration and size. Bony Structures: Stable degenerative changes throughout the thoracic spine. No destructive lesions s een. Miscellaneous: [id number] catheter tip in the mid superior vena cava. CONCLUSION: 1. Interval development of bilateral pleural effusions, left greater than right. 2. Interval development of patchy areas of groundglass opacity in the left mid and lateral lung. 3. Stable appearance to the left axillary mass. Electronically signed by: Vasquez Chicas MD 01/10/2018 11:27 PM EDT
[2018-01-11] MEDS: Piperacil/Tazo 3.375 GM Premix 50 ML IV.SIG SCH ×4 (02:20→22:02)
[2018-01-11] MEDS ORDERED: Heparin Central Flush 100 UNIT/ML 5 ML Vial IV.FLUSH PRN ×2 (02:41)
[2018-01-11] MEDS: Morphine Sulfate Inj 2 MG/ML Vial IV.PUSH PRN ×4 (05:00→22:03)
[2018-01-11] MEDS: MethylPREDNISolone Sod Succinate Inj 125 MG/2 ML Vial IV.PUSH SCH ×4 (05:01→22:05)
[2018-01-11 05:11] LABS: Baso % (Auto) 0.1 % (0.0-2.0); Hematocrit 23.6 % (39.0-51.0); Lymph # (Auto) 0.1 th/mm3 (1.0-4.8); Lymph % (Auto) 1.6 % (9.0-44.0); Mean Corpuscular HGB Conc 33.6 % (32.0-36.0); Mean Corpuscular Hemoglobin 30.4 pg (27.0-34.0); Mean Corpuscular Volume 90.5 fL (80.0-100.0); Mean Platelet Volume 7.6 fL (7.0-11.0); Mono # (Auto) 0.1 th/mm3 (0.0-0.9); Mono % (Auto) 3.8 % (0.0-8.0); Neut # (Auto) 3.4 th/mm3 (1.8-7.7); Neut % (Auto) 94.5 % (16.0-70.0); Platelet Count 28 th/mm3 (150-450); Red Blood Count 2.61 mil/mm3 (4.50-5.90); Red Cell Distribution Width 19.5 % (11.6-17.2); White Blood Count 3.6 th/mm3 (4.0-11.0)
[2018-01-11 05:45] LABS: Alanine Aminotransferase 7 U/L (12-78); Anion Gap 13 meq/L (5-15); Aspartate Aminotransferase 10 U/L (15-37); Blood Urea Nitrogen 22 mg/dL (7-18); Calcium 7.5 mg/dL (8.5-10.1); Chloride 106 meq/L (98-107); Glomerular Filtration Rate Greater Than 89 mL/min (>89); Glucose,Random 157 mg/dL (74-106); Potassium 3.7 meq/L (3.5-5.1); Sodium 142 meq/L (136-145)
[2018-01-11 05:48] LABS: Alkaline Phosphatase 40 U/L (45-117); Total Protein 4.1 g/dL (6.4-8.2)
[2018-01-11 08:19] LABS: Ovalocytes 1+; Platelet Morphology Normal (Normal)
[2018-01-11] MEDS: Pantoprazole Inj 40 MG Vial IV.PUSH SCH ×2 (08:40→22:04)
[2018-01-11] MEDS: dilTIAZem 60 MG Tablet PO SCH ×4 (08:40→22:25)
[2018-01-11] MEDS: LORazepam 1 MG Tablet PO SCH ×2 (08:40→22:24)
--- NOTE | 2018-01-11 08:47 | P.PNONC ---
Subjective Interval history: Afebrile. Patient denies any obvious bleeding. He states he is now getting a laxative as he has not had a bowel movement. Reports his breathing is unchanged from baseline. He states he was able to get up with physical therapy yesterday and sit in the chair for several hours. Pancytopenia continues, concerning for continued bleeding. Objective Vital Signs/Intake & Output: Vital Signs 01/10/18 08:41 01/10/18 09:38 01/10/18 11:41 Temperature 98.3 F Pulse Rate 83 93 H 79 Respiratory Rate 18 18 Blood Pressure 117/68 Pulse Oximetry 96 98 01/10/18 12:24 01/10/18 12:35 01/10/18 16:00 Temperature 97.9 F Pulse Rate 88 81 90 Respiratory Rate 18 18 Blood Pressure 106/67 Pulse Oximetry 100 01/10/18 16:35 01/10/18 16:53 01/10/18 19:57 Temperature 98.5 F 97.8 F Pulse Rate 109 H 78 86 Respiratory Rate 20 22 18 Blood Pressure 116/66 111/60 Pulse Oximetry 100 98 01/10/18 20:00 01/10/18 20:15 01/10/18 23:14 Temperature Pulse Rate 94 H 73 96 H Respiratory Rate 18 20 Blood Pressure Pulse Oximetry 98 01/10/18 23:36 01/10/18 23:56 01/11/18 03:11 Temperature 97.7 F 97.7 F Pulse Rate 87 97 H 93 H Respiratory Rate 18 20 Blood Pressure 110/63 112/71 Pulse Oximetry 96 95 01/11/18 03:18 01/11/18 03:46 01/11/18 07:35 Temperature Pulse Rate 105 H 89 93 H Respiratory Rate 18 Blood Pressure Pulse Oximetry 01/11/18 07:47 01/11/18 08:13 Temperature Pulse Rate 88 Respiratory Rate 20 Blood Pressure Pulse Oximetry 98 Intake & Output 01/10/18 01/11/18 01/11/18 18:59 06:59 18:59 Intake Total 1984 / 1984 865 / 865 Output Total 475 / 475 725 / 725 Balance 1510 / 1510 140 / 140 Intake: IV 345 / 345 140 / 140 Cardizem Inj 125 MG In NS Inj 240 / 240 30 / 30 100 ML @ 5 MG/HR 5 mls/hr IV. CONT TITRATE PRN Rx#:[id number] Zosyn 3.375 GM Premix 50 ML @ 105 / 105 110 / 110 100 mls/hr IV.SIG Q6H HELEN Rx#: [id number] Oral 1640 / 1640 725 / 725 Output: Urine 475 / 475 725 / 725 Other: # Voids 1 Date of Last Bowel Movement 01/04/18 Result Diagrams: 01/11/18 03:10 01/11/18 03:10 Laboratory Results: Laboratory Results - last 24 hr 01/11/18 01/11/18 03:10 03:10 WBC 3.6 L RBC 2.61 L Hgb 8.0 L Hct 23.6 L MCV 90.5 MCH 30.4 MCHC 33.6 RDW 19.5 H Plt Count 28 L MPV 7.6 Prelim Diff (Auto) Slide review pending Neut % (Auto) 94.5 H Lymph % (Auto) 1.6 L [place] % (Auto) 3.8 Eos % (Auto) 0.0 Baso % (Auto) 0.1 Neut # (Auto) 3.4 Lymph # (Auto) 0.1 L [place] # (Auto) 0.1 Eos # (Auto) 0.0 Baso # (Auto) 0.0 WBC Differential . Diff Scan Auto diff confirmed Differential Comment . Platelet Estimate Low L Platelet Morphology Normal Ovalocytes 1+ H Sodium 142 Potassium 3.7 Chloride 106 Carbon Dioxide 23.0 Anion Gap 13 BUN 22 H Creatinine 0.73 Estimated GFR Greater than 89 Random Glucose 157 H Calcium 7.5 L Total Bilirubin 0.5 AST 10 L ALT 7 L Alkaline Phosphatase 40 L Total Protein 4.1 L Albumin 2.0 L Imaging Studies: Impressions Chest CT 01/10/18 00:00 CONCLUSION: 1. Interval development of bilateral pleural effusions, left greater than right. 2. Interval development of patchy areas of groundglass opacity in the left mid and lateral lung. 3. Stable appearance to the left axillary mass. Medications: Active Medications Generic Name Dose Route Start Last Admin Trade Name Freq PRN Reason Stop Dose Admin Albuterol 1 ampul 01/02/18 18:29 01/08/18 14:11 Duoneb Neb (Prn) NEB 1 ampul Q2HR NEB PRN Administration WHEEZING Albuterol 1 ampul 01/02/18 20:00 01/11/18 07:41 Duoneb Neb (Helen) NEB 1 ampul Q4HR NEB HELEN Administration Atorvastatin Calcium 20 mg 01/02/18 21:00 01/10/18 21:58 Lipitor PO 20 mg HS HELEN Administration Budesonide 0.5 mg 01/08/18 10:00 01/11/18 07:41 Pulmocort Respule Neb NEB 0.5 mg Q12HR NEB HELEN Administration Calcium Carbonate 500 mg 01/06/18 10:07 01/08/18 19:00 Tums Chew CHEW 500 mg Q2H PRN Administration acid reflux Diltiazem HCl 60 mg 01/10/18 18:00 01/10/18 21:58 Cardizem PO 60 mg QID HELEN Administration Diphenhydramine HCl 25 mg 01/07/18 23:33 01/08/18 20:50 Benadryl PO 25 mg HS PRN Administration SLEEP Heparin Sodium (Porcine) 250 unit 01/11/18 02:41 01/11/18 03:17 Heparin Central Flush IV.FLUSH 250 unit PRN PRN Administration Flush Infusapot Sodium Chloride 500 mls @ 30 mls/hr 01/08/18 01:00 01/08/18 00:32 Ns Inj IV.SIG Not Given .Q10H HELEN Piperacillin/Tazobactam/Dextrose 50 mls @ 100 mls/hr 01/09/18 14:00 01/11/18 03:17 Zosyn 3.375 Gm Premix IV.SIG Infused Q6H HELEN Infusion Diltiazem HCl 125 mg/ Sodium 125 mls @ 5 mls/hr 01/09/18 21:40 01/11/18 01:17 Chloride IV.CONT Infused TITRATE PRN Titration Per Protocol Protocol 5 MG/HR Lactulose 30 ml 01/02/18 18:29 01/10/18 10:07 Lactulose Liq PO 30 ml DAILY PRN Administration SEVERE CONSITIPATION Lorazepam 1 mg 01/02/18 21:00 01/10/18 21:58 Ativan PO 1 mg BID HELEN Administration Methylprednisolone Sodium Succinate 60 mg 01/06/18 17:00 01/11/18 05:01 Solumedrol Inj IV.PUSH 60 mg Q6H HELEN Administration Morphine Sulfate 2 mg 01/02/18 18:29 01/11/18 05:00 Morphine Inj IV.PUSH 2 mg Q2H PRN Administration PAIN SCALE 6 TO 10 Ondansetron HCl 4 mg 01/02/18 18:29 01/04/18 17:34 Zofran Inj IV.PUSH 4 mg Q6H PRN Administration NAUSEA OR VOMITING Pantoprazole Sodium 40 mg 01/02/18 21:00 01/10/18 21:59 Protonix Inj IV.PUSH 40 mg Q12HR HELEN Administration Sodium Chloride 2 ml 01/02/18 21:00 01/10/18 21:58 Ns Flush IV.FLUSH 2 ml BID HELEN Administration Sodium Chloride 2 ml 01/02/18 18:29 01/11/18 03:16 Ns Flush IV.FLUSH 2 ml PRN PRN Administration FLUSH AFTER USING IV ACCESS Sodium Chloride 5 ml 01/11/18 02:41 01/11/18 03:17 Ns Flush IV.FLUSH 5 ml PRN PRN Administration Flush Infusaport Objective Remarks: GENERAL: Elderly male patient, sitting upright in bed, in no acute distress. SKIN: Warm and dry. LUE hardened, nodular skin s/p radiation, gauze drsg to forearm dry/intact. Nodular lesion to left mid back. HEAD: Normocephalic. EYES: No scleral icterus. No injection or drainage. NECK: Supple, trachea midline. CARDIOVASCULAR: Irregularly irregular without murmurs. RESPIRATORY: Anterior breath sounds diminished, clear, equal bilaterally. Accessory muscle use. GASTROINTESTINAL: Abdomen soft, non-tender, distended. EXTREMITIES: No cyanosis, or edema. MUSCULOSKELETAL: Adequate muscle tone. NEUROLOGICAL: No obvious focal deficit. Awake, alert, and oriented x3. PSYCHIATRIC: Appropriate mood and affect; insight and judgment normal. . 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 He is currently receiving radiation therapy secondary to bleeding. Patient also has a past medical history of COPD , Reaves's, EtOH and tobacco abuse. He presented to the emergency room with complaints of some maroon/black stool. He was on Xarelto for pulmonary embolism on 12/23/2016. He was found to have a hemoglobin of 4.9. Plan: 1. Squamous cell carcinoma with metastasis to the left arm. Patient currently being treated with radiation; he has 5 remaining treatments. 2. History of pulmonary embolism on 12/23/2016. Xarelto currently on hold due to severe anemia and bleeding. 3. Atrial fibrillation, management per cardiology, on Cardizem. Patient not on anticoagulation due to GI bleed and severe anemia. 4. Patient had repeat EGD on 01/08/[address] Wilder where he was found to have robi blood in the duodenum. Also noted was two more ulcers that were clipped. 5. Pancytopenia, concerning for continued GI bleeding. Platelets continue to decrease at 28k today. Hemoglobin trending down to 8.0, status post transfusion of 1 unit of PRBCs on 01/09/18. Continue to monitor closely, daily CBC. Appreciate GI input.
--- NOTE | 2018-01-11 13:06 | P.PNPAL ---
Reason for Visit Reason for visit: a. To assist with evaluation and management of symptoms including:dyspnea, pain , and general debility b. To assist medical decision maker(s) with: better understanding of current medical conditions; weighing benefits/burdens of medical treatment options; making medical treatment decisions. Subjective Subjective/Interval History: Patient seen today to follow-up on comfort, goals. CT chest completed yesterday=1. Interval development of bilateral pleural effusions, left greater than right.2. Interval development of patchy areas of groundglass opacity in the left mid and lateral lung. 3. Stable appearance to the left axillary mass. H&H downtrending 8.0/23.6, plt 28, WBC 3.6. No obvious signs of bleeding. No BM , receiving multiple laxatives. Weaned off of cardizem drip, now on Cardizem 60mg PO QID. Pt seen in room no visitors present. Dual visit with Steve GUZMÁN., Oriented , pleasant and appropriate. Dyspneic with conversation. He endorses feeling okay overall today but just tired, fatigued. He endorses he actually better last night but overall today he feels fatigued in general. He endorses he might feel a little more short of breath today. Denies any GI complaints no nausea or vomiting. Passing flatus no abdominal pain or discomfort. No bowel movement yet. Feels he is voiding adequately. Pain "OK" left arm, increasing to 8/10 now, last prn morphine 5am, feels he needs some now (notified nsg) he indicates morphine is effective, pain to 4+/- after. Review with him his understanding of he said he understands 1 of his blood counts is low today, and that there might be something in his lungs. Explore with him recent agnostic's, CT chest findings implications of effusion and possibility of thoracentesis if indicated. Further explore with him CBC changes today and concern for bleeding with platelets, as well as the possibility of needing transfusions depending on where counts trend. Review with him multiple issues at play including cardiac, GI, thrombocytopenia, underlying malignancy, concern for respiratory deterioration, and general deterioration if things continue to worsen. Reviewed that he could end up in ICU, he endorses that he would not want to be sedated on mechanical vent. Further explore with him benefits/burdens are associated with cardiac and pulmonary resuscitation. Would not want to be on a ventilator however he does not wish to change CODE STATUS today until talking further with his . Explore with him that I am worried that his performance status is deteriorating due to all the complications and that he may NOT become well enough to obtain chemotherapy again for his underlying malignancy. Explore that I am not certain of this or even of ongoing XRT but that the more complications and setbacks he encounters the more likely the trajectory of decline will continue in the less likely he can continue to pursue cancer treatment. Gently explore that in this case the malignancy would likely continue and he would likely have limited life expectancy. He asks how long he might have to live; explore that we cannot specifically predict however if current trajectory continues he likely does not have many months to years but more likely in the range of weeks to months. He verbalizes understanding. He verbalizes sadness that he is not getting better. He wonders if all of this "stabilizes "then he might start to get better. Gently explore that it is possible his conditions could stabilize but he would remain at ongoing risk for more issues at any time, secondary to the underlying malignancy, and now debilitated status. Gently explore with him hospice role, philosophy, services. He is not ready for hospice at this time. He would like to discuss everything further with his today's findings, CODE STATUS etc. He indicates that she will be coming in later today that she is currently bowling with her bowling team. He does not know what time she will be coming offer to meet with her when she does arrive. Following exam discussed with primary nurse, medical attending CHRIS Salguero. Call to , no answer. Requested nursing notify if/when arrives later today. . Objective Vital Signs: Vital Signs 01/10/18 16:00 01/10/18 16:35 01/10/18 16:53 Temperature 98.5 F Pulse Rate 90 109 H 78 Respiratory Rate 20 22 Blood Pressure 116/66 Pulse Oximetry 100 01/10/18 19:57 01/10/18 20:00 01/10/18 20:15 Temperature 97.8 F Pulse Rate 86 94 H 73 Respiratory Rate 18 18 Blood Pressure 111/60 Pulse Oximetry 98 98 01/10/18 23:14 01/10/18 23:36 01/10/18 23:56 Temperature 97.7 F Pulse Rate 96 H 87 97 H Respiratory Rate 20 18 Blood Pressure 110/63 Pulse Oximetry 96 01/11/18 03:11 01/11/18 03:18 01/11/18 03:46 Temperature 97.7 F Pulse Rate 93 H 105 H 89 Respiratory Rate 20 18 Blood Pressure 112/71 Pulse Oximetry 95 01/11/18 07:35 01/11/18 07:42 01/11/18 07:45 Temperature Pulse Rate 93 H 88 Respiratory Rate 20 Blood Pressure Pulse Oximetry 98 01/11/18 07:47 01/11/18 08:13 01/11/18 11:13 Temperature Pulse Rate 88 90 Respiratory Rate 20 20 Blood Pressure Pulse Oximetry 98 01/11/18 12:27 Temperature 97.9 F Pulse Rate 126 H Respiratory Rate 18 Blood Pressure 129/84 Pulse Oximetry 97 Intake & Output 01/10/18 01/11/18 01/11/18 18:59 06:59 18:59 Intake Total 1984 / 1984 865 / 865 Output Total 475 / 475 725 / 725 Balance 1510 / 1510 140 / 140 Intake: IV 345 / 345 140 / 140 Cardizem Inj 125 MG In NS Inj 240 / 240 30 / 30 100 ML @ 5 MG/HR 5 mls/hr IV. CONT TITRATE PRN Rx#:[id number] Zosyn 3.375 GM Premix 50 ML @ 105 / 105 110 / 110 100 mls/hr IV.SIG Q6H KATIE Rx#: [id number] Oral 1640 / 1640 725 / 725 Output: Urine 475 / 475 725 / 725 Other: # Voids 1 Date of Last Bowel Movement 01/04/18 Physical Exam: CONSTITUTIONAL/GENERAL: This is an adequately nourished patient, mildly dyspneic TUBES/LINES/DRAINS: right chest port, PIV SKIN: lesions noted to left upper extremity and chest wall. Dressing left arm clean/dry. Skin warm/dry CARDIOVASCULAR: Irregular rate and rhythm without murmur. Rate 90s. No JVD. Peripheral pulses symmetric. edema BUE, L> R RESPIRATORY/CHEST:slightly Labored respirations slightly tachypneic w conversation. Clear to auscultation, though diminished throughout. faint expiratory wheeze RT lower. GASTROINTESTINAL: Abdomen soft, non-tender, nondistended. No palpable masses. No guarding. Bowel sounds normoactive. MUSCULOSKELETAL: Left more edematous compared to right . ROM to LUE severely diminished NEUROLOGICAL: Awake and alert, oriented , appropriate. Follows commands. Cognitively sharp. Moves all 4 extremities. PSYCHIATRIC: No obvious anxiety/depression. no apparent hallucinations or other psychotic thought process. Diagnostic Tests Laboratory: Laboratory Results - last 72 hr 01/07/18 01/08/18 01/09/18 19:49 00:22 04:32 WBC 4.0 RBC 2.51 L Hgb 7.5 L Hct 22.3 L MCV 88.8 MCH 30.0 MCHC 33.7 RDW 20.5 H Plt Count 35 L MPV 7.6 Prelim Diff (Auto) Slide review pending Neut % (Auto) 94.2 H Lymph % (Auto) 1.6 L Gregg % (Auto) 4.2 Eos % (Auto) 0.0 Baso % (Auto) 0.0 Neut # (Auto) 3.8 Lymph # (Auto) 0.1 L Gregg # (Auto) 0.2 Eos # (Auto) 0.0 Baso # (Auto) 0.0 WBC Differential . Diff Scan Auto diff confirmed Differential Comment . Platelet Estimate Low L Platelet Morphology Normal Ovalocytes 1+ H Sodium Potassium Chloride Carbon Dioxide Anion Gap BUN Creatinine Estimated GFR Random Glucose Calcium Magnesium Total Bilirubin AST ALT Alkaline Phosphatase Total Protein Albumin MTS Gel Crossmatch See Detail See Detail Bld Prod Order Comment 01/09/18 01/09/18 01/10/18 04:32 09:28 03:40 WBC 4.0 RBC 2.67 L Hgb 8.2 L Hct 23.9 L MCV 89.6 MCH 30.6 MCHC 34.2 RDW 19.6 H Plt Count 33 L MPV 8.6 Prelim Diff (Auto) Slide review pending Neut % (Auto) 93.7 H Lymph % (Auto) 1.6 L Gregg % (Auto) 4.7 Eos % (Auto) 0.0 Baso % (Auto) 0.0 Neut # (Auto) 3.7 Lymph # (Auto) 0.1 L Gregg # (Auto) 0.2 Eos # (Auto) 0.0 Baso # (Auto) 0.0 WBC Differential . Diff Scan Auto diff confirmed Differential Comment . Platelet Estimate Low L Platelet Morphology Normal Ovalocytes 1+ H Sodium 142 Potassium 3.7 Chloride 110 H Carbon Dioxide 22.9 Anion Gap 9 BUN 33 H Creatinine 0.81 Estimated GFR Greater than 89 Random Glucose 166 H Calcium 7.6 L Magnesium Total Bilirubin 0.4 AST 7 L ALT 7 L Alkaline Phosphatase 33 L Total Protein 4.1 L Albumin 1.8 L MTS Gel Crossmatch See Detail Bld Prod Order Comment 01/10/18 01/11/18 01/11/18 03:40 03:10 03:10 WBC 3.6 L RBC 2.61 L Hgb 8.0 L Hct 23.6 L MCV 90.5 MCH 30.4 MCHC 33.6 RDW 19.5 H Plt Count 28 L MPV 7.6 Prelim Diff (Auto) Slide review pending Neut % (Auto) 94.5 H Lymph % (Auto) 1.6 L Gregg % (Auto) 3.8 Eos % (Auto) 0.0 Baso % (Auto) 0.1 Neut # (Auto) 3.4 Lymph # (Auto) 0.1 L Gregg # (Auto) 0.1 Eos # (Auto) 0.0 Baso # (Auto) 0.0 WBC Differential . Diff Scan Auto diff confirmed Differential Comment . Platelet Estimate Low L Platelet Morphology Normal Ovalocytes 1+ H Sodium 143 142 Potassium 3.8 3.7 Chloride 109 H 106 Carbon Dioxide 22.4 23.0 Anion Gap 12 13 BUN 27 H 22 H Creatinine 0.81 0.73 Estimated GFR Greater than 89 Greater than 89 Random Glucose 142 H 157 H Calcium 7.5 L 7.5 L Magnesium 1.8 Total Bilirubin 0.5 AST 10 L ALT 7 L Alkaline Phosphatase 40 L Total Protein 4.1 L Albumin 2.0 L MTS Gel Crossmatch Bld Prod Order Comment Result Diagrams: 01/11/18 03:10 01/11/18 03:10 Imaging: Impressions Chest CT 01/10/18 00:00 CONCLUSION: 1. Interval development of bilateral pleural effusions, left greater than right. 2. Interval development of patchy areas of groundglass opacity in the left mid and lateral lung. 3. Stable appearance to the left axillary mass. Procedures: 01/03/18 EGD - showed actively bleeding duodenal ulcer with clipping 01/09/18 Repeat EGD - again with active bleeding of duodenal ulcer Assessment and Plan - Disease Oriented Problem List (1) Thrombocytopenia (2) Metastatic squamous cell carcinoma (3) COPD (chronic obstructive pulmonary disease) (4) Acute GI bleeding (5) Duodenal ulceration (6) New onset a-fib - Symptom Scale (1) Dyspnea 0-10 Scale: Unable to quantify (2) Pain 0-10 Scale: 8 (3) Insomnia 0-10 Scale: Unable to quantify Pertinent Non-Medical Issues: Psychosocial: Retired, born in [place] and moved to [place] in 1985. Currently and states the couple have no biological children. He also denies any children on his own Spiritual: Spiritism Legal: There are no know legal issues at this time Ethical issues impacting care: There are currently no ethical issues impacting Mr. Calderon's care Important Contacts: Roma Calderon, /HCP: [phone] Prognosis: With continued aggressive medical treatment, the patient may be able to stabilize and continue current cancer treatments. Given multiple, complex medical issues the patient is at high risk for mortality and would be hospice appropriate if goals were compatible Code Status: Full Code Plan: * Legal decision maker: Patient is currently able to make his own medical decisions, though if he were unable to do so, his Roma Calderon would be healthcare proxy * Goals: Patient understands gravity of condition. At this point he, he is hopeful his condition can be stabilized enough to where he can be discharged and continue with cancer treatments. He is now considering DNR status, he wishes to discuss further with his . We have explored hospice and possible limited life expectancy. (he is NOT interested in hospice at this time, still processing that he may NOT get better) He wishes to talk further with his , palliative available to meet with her as well, unk when she will be arriving. ( nursing to notify palliative). * CODE STATUS: FULL CODE, risks and benefits of CPR/ventilator use discussed with patient and he wishes for aggressive treatment up to and including, CPR and intubation * SYMPTOMS:Dyspnea - long standing COPD with O2 dependence, concern for inflammatory process this admission. CT= 1. Interval development of bilateral pleural effusions, left greater than right.2. Interval development of patchy areas of groundglass opacity in the left mid and lateral lung.3. Stable appearance to the left axillary mass. Currently SOB with any activity including eating, talking. May require thoracentesis, though plt low today. On nebulizer and steroid treatments. At high risk for increased decompensation/intubation * Pain - can be as severe as a 10, mostly revolves around movement but can be spontaneous. Does appear to have a neuropathic or inflammation component as well. Currently on 2mg Morphine IVP Q2H. May benefit from Gabapentin or Lyrica if neuropathic pain persists after edema improves. Currently on IV corticosteroids for breathing, should help some with inflammatory pain related issues. May consider a stronger (Ultram or [place]) for penitentiary use as he should no longer use OTC NSAIDS. Insomnia - most likely multifactorial including pain, and hospital environment. By report this is a long standing issue if persistent can consider melatonin use * constipation- No bm since admission ( 9 days). Receiving milk of mag, lactulose. Bowel sounds are active, passing flatus. Abdominal exam benign. May consider addition of Dulcolax. May require scheduled senna to keep regular once current acute constipation resolves. * Discussed with medical attending and career coach will continue to follow during hospital course as condition evolves, to assist patient/decision-maker with understanding of medical conditions, weighing benefits/burdens of treatment options, for clarification of goals of treatment. Additionally will assist with any symptoms of palliative concern add my plan Attestation Attestation: To help prompt me to consider important information that might be impacting today's encounter and assessment, information from prior notes written by myself or my colleagues may have been "brought forward" into today's note. My signature on this note, however, is an attestation that I personally performed the exam, history, and/or decision-making noted today, and, unless otherwise indicated, the interactions with patient, family, and staff as well as the review of records all occurred today. I also attest that the listed assessment and stated plan reflect my best clinical judgment today based on the combination of historical information, prior notes, and today's exam/ interactions. When time spent is documented, it refers only to time spent today by the signer, or if indicated, combined time spent today by collaborating physician/nurse practitioner.
--- NOTE | 2018-01-11 16:02 | P.PNGI ---
Subjective Interval history: Resting in the bed no acute complaints of nausea vomiting or abdominal pain requesting food <Shira Simons M - Last Filed: 01/11/18 17:14> Physical Exam Vital signs: Vital Signs 01/10/18 16:00 01/10/18 16:35 01/10/18 16:53 Temperature 98.5 F Pulse Rate 90 109 H 78 Respiratory Rate 20 22 Blood Pressure 116/66 Pulse Oximetry 100 01/10/18 19:57 01/10/18 20:00 01/10/18 20:15 Temperature 97.8 F Pulse Rate 86 94 H 73 Respiratory Rate 18 18 Blood Pressure 111/60 Pulse Oximetry 98 98 01/10/18 23:14 01/10/18 23:36 01/10/18 23:56 Temperature 97.7 F Pulse Rate 96 H 87 97 H Respiratory Rate 20 18 Blood Pressure 110/63 Pulse Oximetry 96 01/11/18 03:11 01/11/18 03:18 01/11/18 03:46 Temperature 97.7 F Pulse Rate 93 H 105 H 89 Respiratory Rate 20 18 Blood Pressure 112/71 Pulse Oximetry 95 01/11/18 07:35 01/11/18 07:42 01/11/18 07:45 Temperature Pulse Rate 93 H 88 Respiratory Rate 20 Blood Pressure Pulse Oximetry 98 01/11/18 07:47 01/11/18 08:13 01/11/18 11:13 Temperature Pulse Rate 88 90 Respiratory Rate 20 20 Blood Pressure Pulse Oximetry 98 01/11/18 12:00 01/11/18 12:27 01/11/18 15:02 Temperature 97.9 F Pulse Rate 102 H 126 H 114 H Respiratory Rate 18 20 Blood Pressure 129/84 Pulse Oximetry 97 01/11/18 15:03 Temperature Pulse Rate Respiratory Rate Blood Pressure Pulse Oximetry 98 Intake & Output 01/10/18 01/11/18 01/11/18 18:59 06:59 18:59 Intake Total 1984 / 1984 865 / 865 50 / 50 Output Total 475 / 475 725 / 725 Balance 1510 / 1510 140 / 140 50 / 50 Intake: IV 345 / 345 140 / 140 50 / 50 Cardizem Inj 125 MG In NS Inj 240 / 240 30 / 30 100 ML @ 5 MG/HR 5 mls/hr IV. CONT TITRATE PRN Rx#:[id number] Zosyn 3.375 GM Premix 50 ML @ 105 / 105 110 / 110 50 / 50 100 mls/hr IV.SIG Q6H KATIE Rx#: [id number] Oral 1640 / 1640 725 / 725 Output: Urine 475 / 475 725 / 725 Other: # Voids 1 Date of Last Bowel Movement 01/04/18 - Constitutional obese, cooperative - Routine HEENT Exam ENT: Present: mucous membranes moist - Routine Respiratory Exam Present: accessory muscle use (No obvious shortness of breath at rest) - Routine Abdominal Exam Present: soft (Round, obese, no obvious distention and no obvious abdominal pain ) - Routine Extremities Exam Present: tenderness (Left forearm bulky dressing clean dry and intact) <Shira Simons - Last Filed: 01/11/18 17:14> Vital signs: Vital Signs 01/10/18 19:57 01/10/18 20:00 01/10/18 20:15 Temperature 97.8 F Pulse Rate 86 94 H 73 Respiratory Rate 18 18 Blood Pressure 111/60 Pulse Oximetry 98 98 01/10/18 23:14 01/10/18 23:36 01/10/18 23:56 Temperature 97.7 F Pulse Rate 96 H 87 97 H Respiratory Rate 20 18 Blood Pressure 110/63 Pulse Oximetry 96 01/11/18 03:11 01/11/18 03:18 01/11/18 03:46 Temperature 97.7 F Pulse Rate 93 H 105 H 89 Respiratory Rate 20 18 Blood Pressure 112/71 Pulse Oximetry 95 01/11/18 07:35 01/11/18 07:42 01/11/18 07:45 Temperature Pulse Rate 93 H 88 Respiratory Rate 20 Blood Pressure Pulse Oximetry 98 01/11/18 07:47 01/11/18 08:13 01/11/18 11:13 Temperature Pulse Rate 88 90 Respiratory Rate 20 20 Blood Pressure Pulse Oximetry 98 01/11/18 12:00 01/11/18 12:27 01/11/18 15:02 Temperature 97.9 F Pulse Rate 102 H 126 H 114 H Respiratory Rate 18 20 Blood Pressure 129/84 Pulse Oximetry 97 01/11/18 15:03 01/11/18 16:00 01/11/18 16:47 Temperature 98.5 F Pulse Rate 110 H 116 H Respiratory Rate 18 Blood Pressure 110/75 Pulse Oximetry 98 97 Intake & Output 01/10/18 01/11/18 01/11/18 18:59 06:59 18:59 Intake Total 1984 / 1984 865 / 865 100 / 100 Output Total 475 / 475 725 / 725 Balance 1510 / 1510 140 / 140 100 / 100 Intake: IV 345 / 345 140 / 140 100 / 100 Cardizem Inj 125 MG In NS Inj 240 / 240 30 / 30 100 ML @ 5 MG/HR 5 mls/hr IV. CONT TITRATE PRN Rx#:[id number] Zosyn 3.375 GM Premix 50 ML @ 105 / 105 110 / 110 100 / 100 100 mls/hr IV.SIG Q6H KATIE Rx#: [id number] Oral 1640 / 1640 725 / 725 Output: Urine 475 / 475 725 / 725 Other: # Voids 1 Date of Last Bowel Movement 01/04/18 01/04/18 <Tony Manning - Last Filed: 01/11/18 17:59> Results - Labs CBC & Chem 7: 01/11/18 03:10 01/11/18 03:10 Laboratory Results - last 24 hr 01/11/18 01/11/18 03:10 03:10 WBC 3.6 L RBC 2.61 L Hgb 8.0 L Hct 23.6 L MCV 90.5 MCH 30.4 MCHC 33.6 RDW 19.5 H Plt Count 28 L MPV 7.6 Prelim Diff (Auto) Slide review pending Neut % (Auto) 94.5 H Lymph % (Auto) 1.6 L [place] % (Auto) 3.8 Eos % (Auto) 0.0 Baso % (Auto) 0.1 Neut # (Auto) 3.4 Lymph # (Auto) 0.1 L [place] # (Auto) 0.1 Eos # (Auto) 0.0 Baso # (Auto) 0.0 WBC Differential . Diff Scan Auto diff confirmed Differential Comment . Platelet Estimate Low L Platelet Morphology Normal Ovalocytes 1+ H Sodium 142 Potassium 3.7 Chloride 106 Carbon Dioxide 23.0 Anion Gap 13 BUN 22 H Creatinine 0.73 Estimated GFR Greater than 89 Random Glucose 157 H Calcium 7.5 L Total Bilirubin 0.5 AST 10 L ALT 7 L Alkaline Phosphatase 40 L Total Protein 4.1 L Albumin 2.0 L - Imaging Impressions Chest CT 01/10/18 00:00 CONCLUSION: 1. Interval development of bilateral pleural effusions, left greater than right. 2. Interval development of patchy areas of groundglass opacity in the left mid and lateral lung. 3. Stable appearance to the left axillary mass. <Shira Simons - Last Filed: 01/11/18 17:14> - Labs CBC & Chem 7: 01/11/18 03:10 01/11/18 03:10 Laboratory Results - last 24 hr 01/11/18 01/11/18 03:10 03:10 WBC 3.6 L RBC 2.61 L Hgb 8.0 L Hct 23.6 L MCV 90.5 MCH 30.4 MCHC 33.6 RDW 19.5 H Plt Count 28 L MPV 7.6 Prelim Diff (Auto) Slide review pending Neut % (Auto) 94.5 H Lymph % (Auto) 1.6 L [place] % (Auto) 3.8 Eos % (Auto) 0.0 Baso % (Auto) 0.1 Neut # (Auto) 3.4 Lymph # (Auto) 0.1 L [place] # (Auto) 0.1 Eos # (Auto) 0.0 Baso # (Auto) 0.0 WBC Differential . Diff Scan Auto diff confirmed Differential Comment . Platelet Estimate Low L Platelet Morphology Normal Ovalocytes 1+ H Sodium 142 Potassium 3.7 Chloride 106 Carbon Dioxide 23.0 Anion Gap 13 BUN 22 H Creatinine 0.73 Estimated GFR Greater than 89 Random Glucose 157 H Calcium 7.5 L Total Bilirubin 0.5 AST 10 L ALT 7 L Alkaline Phosphatase 40 L Total Protein 4.1 L Albumin 2.0 L - Imaging Impressions Chest CT 01/10/18 00:00 CONCLUSION: 1. Interval development of bilateral pleural effusions, left greater than right. 2. Interval development of patchy areas of groundglass opacity in the left mid and lateral lung. 3. Stable appearance to the left axillary mass. <Tony Manning - Last Filed: 01/11/18 17:59> Assessment and Plan - Plan 01/04/2018 patient is status post EGD on 01/03/2018. Findings include hiatal hernia, gastric ulcer, duodenal ulcer , clip placement. Patient has tolerated clear liquids and diet has been advanced to cardiac diet. Encouraged again to avoid any NSAIDs, results discussed with patient. Blood thinners still on hold. Anemia, appears to be stable without any obvious bleeding, no BM noted today. Not much to add from a GI perspective and we signed off but please reconsult if needed. 01/07/2018 symptomatic anemia, decrease in hemoglobin 1 g over the past 24 hours from 7.9-6.9 this a.m. patient still has some mild shortness of breath noted but is being maintained on oxygen per nasal cannula. According to the hospitalist and record patient has had some gradual improvement of his shortness of breath over the past 24 hours. Gastroenterology was asked to re-see patient today and reevaluate low hemoglobin. Will go ahead and recheck hemoglobin this a.m. stat for verification, okay for transfusion this p.m. and we will plan to do EGD in the a.m. and reevaluate for possible GI bleeding. Initial plan was for follow-up with EGD in 2 months but will need reevaluation today. 01/09/2018 patient is status post repeat EGD performed on 01/08/2018 for drop in his hemoglobin and GI bleed. Findings include Mild gastritis and duodenal ulcers with active bleeding. Patient now states he is feeling somewhat better and no obvious bleeding but hemoglobin is back down to 7.5 today after previous 9.2. Patient does note some indigestion but no obvious hematemesis. Will need GI bleed monitored with hemoglobin checks 01/10/2018 patient is resting in the bed states feels better on a daily basis and showing gradual improvement hemoglobin was 7.5 now 8.2 without any transfusion in the past 24 hours Thrombocytopenia platelet count mildly decreased to 33, monitored cautiously for patient any obvious bleeding Noted bilirubin and LFTs normal on 12/20/2017 at 0.4, 7 AST, 7 ALT, alkaline phosphatase 33, protein 4.1, and albumin 1.8. Patient states no BM in 6 days and has a history of constipation. Discussed with nurse bowel regimen meds, patient is to receive lactulose today, no suppository today secondary to low platelet count and encourage patient not to strain. Patient states he has only been on liquid diet so has not been that concerned about it. Will monitor hemoglobin, patient is status post EGDs x2 this admission and appears to be showing his gradual improvement. GI monitoring has been for patient's duodenal ulcers and gastritis. 01/11/2018 patient is resting in the bed generalized weakness and fatigue but is feeling much better. Patient is beginning to get hungry and is requesting regular food. Supportive care given concerning his cancer and his wishes for the next 3-6 months. Also discussed with him monitoring any obvious bleeding and transfusions if he wishes. Constipation patient is passing a lot of gas, no BM today patient is taking lactulose and is going to have regular food this p.m. so will need continuous monitoring for his comfort and so he can avoid not straining. Monitor hemoglobin, repeat EGD if patient has any obvious bleeding or drastic drop in hemoglobin. GI will sign off for now but reconsult if needed PLAN: Diet regular diet as tolerated Bowel regimen and continue to monitor for BM so patient does not become constipated, Protonix twice daily Avoid any straining with defecation Monitor labs and transfuse as needed, consider EGD if patient shows downward hemoglobin trends again Supportive care Patient was seen per myself and Dr. Manning, note was written on his behalf <Shira Simons - Last Filed: 01/11/18 17:14> - Plan Seen and examined with [employer] INST[employer]ER REPAIRER, no bleeding reported. Advance to cardiac diet. Hospice consulted. GI will sign off. Thank you The exam, history, and the medical decision-making described in the above note were completed with the assistance of the mid-level provider. I reviewed and agree with the findings presented. I attest that I had a [id number] encounter with the patient on the same day, and personally performed and documented my assessment and findings in the medical record. <Tony Manning - Last Filed: 01/11/18 17:59>
[2018-01-11] MEDS: Digoxin Inj 500 MCG/2 ML Ampul IV.PUSH SCH (19:27)
[2018-01-11] MEDS: Docusate Sodium 100 MG Capsule PO SCH (22:24)
[2018-01-11] MEDS ORDERED: Metoprolol Inj 5 MG/5 ML Vial IV.PUSH ONE (23:45)
[2018-01-12] MEDS: Digoxin Inj 500 MCG/2 ML Ampul IV.PUSH SCH (01:32)
[2018-01-12] MEDS: Piperacil/Tazo 3.375 GM Premix 50 ML IV.SIG SCH ×3 (01:33→13:04)
[2018-01-12] MEDS: MethylPREDNISolone Sod Succinate Inj 125 MG/2 ML Vial IV.PUSH SCH ×2 (05:23→09:12)
[2018-01-12] MEDS: Morphine Sulfate Inj 2 MG/ML Vial IV.PUSH PRN ×5 (05:30→22:26)
[2018-01-12 07:39] LABS: Baso % (Auto) 0.1 % (0.0-2.0); Hematocrit 23.6 % (39.0-51.0); Lymph # (Auto) 0.1 th/mm3 (1.0-4.8); Lymph % (Auto) 1.5 % (9.0-44.0); Mean Corpuscular HGB Conc 33.6 % (32.0-36.0); Mean Corpuscular Hemoglobin 30.1 pg (27.0-34.0); Mean Corpuscular Volume 89.5 fL (80.0-100.0); Mean Platelet Volume 7.4 fL (7.0-11.0); Mono # (Auto) 0.1 th/mm3 (0.0-0.9); Mono % (Auto) 3.8 % (0.0-8.0); Neut # (Auto) 3.5 th/mm3 (1.8-7.7); Neut % (Auto) 94.6 % (16.0-70.0); Platelet Count 27 th/mm3 (150-450); Red Blood Count 2.64 mil/mm3 (4.50-5.90); Red Cell Distribution Width 20.3 % (11.6-17.2); White Blood Count 3.7 th/mm3 (4.0-11.0)
[2018-01-12 07:57] LABS: Alanine Aminotransferase 7 U/L (12-78); Anion Gap 11 meq/L (5-15); Aspartate Aminotransferase 9 U/L (15-37); Blood Urea Nitrogen 22 mg/dL (7-18); Calcium 7.5 mg/dL (8.5-10.1); Chloride 103 meq/L (98-107); Glomerular Filtration Rate Greater Than 89 mL/min (>89); Glucose,Random 158 mg/dL (74-106); Potassium 3.9 meq/L (3.5-5.1); Sodium 140 meq/L (136-145)
[2018-01-12 08:11] LABS: Alkaline Phosphatase 43 U/L (45-117); Digoxin 2.1 ng/mL (0.8-2.0); Total Protein 4.2 g/dL (6.4-8.2)
[2018-01-12 08:26] LABS: Platelet Morphology Normal (Normal)
[2018-01-12] MEDS: dilTIAZem 60 MG Tablet PO SCH ×3 (09:08→17:44)
[2018-01-12] MEDS: LORazepam 1 MG Tablet PO SCH ×2 (09:08→22:14)
[2018-01-12] MEDS: Docusate Sodium 100 MG Capsule PO SCH ×2 (09:08→22:14)
[2018-01-12] MEDS: Pantoprazole Inj 40 MG Vial IV.PUSH SCH ×2 (09:12→22:14)
--- NOTE | 2018-01-12 10:21 | P.PNONC ---
Subjective Interval history: Afebrile, lying in bed, no acute distress. Patient denies any bleeding at this time. Denies nausea or vomiting. Still without a bowel movement. He was able to advance his diet and reports tolerating well. Patient states he is not a candidate for any further radiation treatments at this time due to his ow blood counts. He states "I was told by Dr Murcia that I only have 2-6 months to live and that really took the wind out of my sail , if I am going to , I want to at home." He also discusses being seen by palliative care and does not really know how to feel about any of this at this time. Objective Vital Signs/Intake & Output: Vital Signs 01/11/18 11:13 01/11/18 12:00 01/11/18 12:27 Temperature 97.9 F Pulse Rate 90 102 H 126 H Respiratory Rate 20 18 Blood Pressure 129/84 Pulse Oximetry 97 01/11/18 15:02 01/11/18 15:03 01/11/18 16:00 Temperature Pulse Rate 114 H 110 H Respiratory Rate 20 Blood Pressure Pulse Oximetry 98 01/11/18 16:47 01/11/18 19:00 01/11/18 19:02 Temperature 98.5 F Pulse Rate 116 H 137 H 116 H Respiratory Rate 18 18 Blood Pressure 110/75 Pulse Oximetry 97 96 01/11/18 19:30 01/11/18 20:00 01/11/18 23:45 Temperature 98.4 F Pulse Rate 110 H 98 H Respiratory Rate 16 20 18 Blood Pressure 110/75 Pulse Oximetry 96 01/12/18 00:00 01/12/18 01:34 01/12/18 03:00 Temperature 98.4 F Pulse Rate 110 H 91 H Respiratory Rate 18 16 Blood Pressure 137/79 Pulse Oximetry 98 01/12/18 03:56 01/12/18 04:00 01/12/18 07:00 Temperature 97.8 F Pulse Rate 88 97 H 87 Respiratory Rate 18 18 Blood Pressure 133/72 Pulse Oximetry 95 01/12/18 07:40 01/12/18 07:46 01/12/18 08:08 Temperature 97.6 F Pulse Rate 90 101 H Respiratory Rate 20 17 Blood Pressure 139/72 Pulse Oximetry 95 95 01/12/18 08:11 Temperature Pulse Rate Respiratory Rate Blood Pressure Pulse Oximetry 97 Intake & Output 01/11/18 01/12/18 01/12/18 18:59 06:59 18:59 Intake Total 100 / 100 1040 / 1040 Output Total 1325 / 1325 Balance 100 / 100 -285 / -285 Weight 91.5 kg Intake: IV 100 / 100 200 / 200 Zosyn 3.375 GM Premix 50 ML @ 100 / 100 200 / 200 100 mls/hr IV.SIG Q6H HELEN Rx#: [id number] Oral 840 / 840 Output: Urine 1325 / 1325 Other: Date of Last Bowel Movement 01/04/18 01/04/18 Result Diagrams: 01/12/18 05:30 01/12/18 05:59 Laboratory Results: Laboratory Results - last 24 hr 01/12/18 01/12/18 01/12/18 05:30 05:30 05:59 WBC 3.7 L RBC 2.64 L Hgb 8.0 L Hct 23.6 L MCV 89.5 MCH 30.1 MCHC 33.6 RDW 20.3 H Plt Count 27 L MPV 7.4 Prelim Diff (Auto) Slide review pending Neut % (Auto) 94.6 H Lymph % (Auto) 1.5 L [place] % (Auto) 3.8 Eos % (Auto) 0.0 Baso % (Auto) 0.1 Neut # (Auto) 3.5 Lymph # (Auto) 0.1 L [place] # (Auto) 0.1 Eos # (Auto) 0.0 Baso # (Auto) 0.0 WBC Differential . Diff Scan Auto diff confirmed Differential Comment . Platelet Estimate Low L Platelet Morphology Normal Fibrinogen 151 L Sodium 140 Potassium 3.9 Chloride 103 Carbon Dioxide 26.0 Anion Gap 11 BUN 22 H Creatinine 0.72 Estimated GFR Greater than 89 Random Glucose 158 H Calcium 7.5 L Total Bilirubin 0.4 AST 9 L ALT 7 L Alkaline Phosphatase 43 L Total Protein 4.2 L Albumin 2.0 L Digoxin 2.1 H Medications: Active Medications Generic Name Dose Route Start Last Admin Trade Name Freq PRN Reason Stop Dose Admin Albuterol 1 ampul 01/02/18 18:29 01/08/18 14:11 Duoneb Neb (Prn) NEB 1 ampul Q2HR NEB PRN Administration WHEEZING Albuterol 1 ampul 01/02/18 20:00 01/12/18 07:38 Duoneb Neb (Helen) NEB 1 ampul Q4HR NEB HELEN Administration Atorvastatin Calcium 20 mg 01/02/18 21:00 01/11/18 22:24 Lipitor PO 20 mg HS HELEN Administration Budesonide 0.5 mg 01/08/18 10:00 01/12/18 07:38 Pulmocort Respule Neb NEB 0.5 mg Q12HR NEB HELEN Administration Calcium Carbonate 500 mg 01/06/18 10:07 01/08/18 19:00 Tums Chew CHEW 500 mg Q2H PRN Administration acid reflux Diltiazem HCl 60 mg 01/10/18 18:00 01/12/18 09:08 Cardizem PO 60 mg QID HELEN Administration Diphenhydramine HCl 25 mg 01/07/18 23:33 01/08/18 20:50 Benadryl PO 25 mg HS PRN Administration SLEEP Docusate Sodium 100 mg 01/11/18 21:00 01/12/18 09:08 Colace PO 100 mg BID HELNE Administration Heparin Sodium (Porcine) 250 unit 01/11/18 02:41 01/11/18 03:17 Heparin Central Flush IV.FLUSH 250 unit PRN PRN Administration Flush Infusapot Sodium Chloride 500 mls @ 30 mls/hr 01/08/18 01:00 01/08/18 00:32 Ns Inj IV.SIG Not Given .Q10H HELEN Piperacillin/Tazobactam/Dextrose 50 mls @ 100 mls/hr 01/09/18 14:00 01/12/18 09:09 Zosyn 3.375 Gm Premix IV.SIG 100 mls/hr Q6H HELEN Administration Diltiazem HCl 125 mg/ Sodium 125 mls @ 5 mls/hr 01/09/18 21:40 01/11/18 01:17 Chloride IV.CONT Infused TITRATE PRN Titration Per Protocol Protocol 5 MG/HR Lactulose 30 ml 01/02/18 18:29 01/11/18 08:40 Lactulose Liq PO 30 ml DAILY PRN Administration SEVERE CONSITIPATION Lorazepam 1 mg 01/02/18 21:00 01/12/18 09:08 Ativan PO 1 mg BID HELEN Administration Methylprednisolone Sodium Succinate 60 mg 01/12/18 09:00 01/12/18 09:12 Solumedrol Inj IV.PUSH 60 mg DAILY HELEN Administration Morphine Sulfate 2 mg 01/02/18 18:29 01/12/18 09:16 Morphine Inj IV.PUSH 2 mg Q2H PRN Administration PAIN SCALE 6 TO 10 Ondansetron HCl 4 mg 01/02/18 18:29 01/04/18 17:34 Zofran Inj IV.PUSH 4 mg Q6H PRN Administration NAUSEA OR VOMITING Pantoprazole Sodium 40 mg 01/02/18 21:00 01/12/18 09:12 Protonix Inj IV.PUSH 40 mg Q12HR HELEN Administration Sodium Chloride 2 ml 01/02/18 21:00 01/12/18 09:13 Ns Flush IV.FLUSH 2 ml BID HELEN Administration Sodium Chloride 2 ml 01/02/18 18:29 01/11/18 03:16 Ns Flush IV.FLUSH 2 ml PRN PRN Administration FLUSH AFTER USING IV ACCESS Sodium Chloride 5 ml 01/11/18 02:41 01/11/18 16:40 Ns Flush IV.FLUSH 5 ml PRN PRN Administration Flush Infusaport Objective Remarks: GENERAL: Elderly male patient, sitting upright in bed, in no acute distress. SKIN: Warm and dry. LUE hardened, nodular skin s/p radiation, gauze drsg to forearm with minimal clear/brown drainage. Nodular lesion to left mid back. HEAD: Normocephalic. EYES: No scleral icterus. No injection or drainage. NECK: Supple, trachea midline. CARDIOVASCULAR: Irregularly irregular without murmurs. RESPIRATORY: Anterior breath sounds diminished, clear, equal bilaterally. No accessory muscle use. GASTROINTESTINAL: Abdomen soft, non-tender, distended. EXTREMITIES: No cyanosis, or edema. MUSCULOSKELETAL: Adequate muscle tone. NEUROLOGICAL: No obvious focal deficit. Awake, alert, and oriented x3. PSYCHIATRIC: Appropriate mood and affect; insight and judgment normal. . 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 He is currently receiving radiation therapy secondary to bleeding. Patient also has a past medical history of COPD , Reaves's, EtOH and tobacco abuse. He presented to the emergency room with complaints of some maroon/black stool. He was on Xarelto for pulmonary embolism on 12/23/2016. He was found to have a hemoglobin of 4.9. Plan: 1. Squamous cell carcinoma with metastasis to the left arm. Patient recently treated with radiation; he had 5 remaining treatments upon this hospitalization. 2. History of pulmonary embolism on 12/23/2016. Xarelto currently on hold due to severe anemia and bleeding. 3. Patient had repeat EGD on 01/08/[address] Wilder where he was found to have robi blood in the duodenum. Also noted was two more ulcers that were clipped. GI recommends monitoring daily blood counts and to reconsult for EGD if any significant drop in hgb. 4. Platelets continue to decrease at 27k today. Hemoglobin 8.0, status post transfusion of 1 unit on 12/09/17. Continue to monitor CBC. 5. Atrial fibrillation, cardiology has been consulted with recommendations to transition to oral Cardizem once appropriate. Patient not on anticoagulation due to GI bleed and severe anemia. Currently transitioning from Cardizem drip to p.o. Cardizem. Management per attending and cardiology. 6. Constipation. Continue lactulose daily until bowel movement. 7. Continue supportive care. - Attending Statement Pt seen in 242 A. Pt clinically stable but not a candidate for systemic therapy due to pancytopenia and he is aware of that. Continue supportive care. Will follow up in office after d/c
--- NOTE | 2018-01-12 16:35 | P.PNIM ---
Subjective Interval history: Late charting 01/11 Patient reports that his bubble had been burst after taking with palliative care Patient offers no new concerns/complaints denies signs symptoms of active bleeding No BM Physical Exam Vital signs: Vital Signs 01/11/18 16:47 01/11/18 19:00 01/11/18 19:02 Temperature 98.5 F Pulse Rate 116 H 137 H 116 H Respiratory Rate 18 18 Blood Pressure 110/75 Pulse Oximetry 97 96 01/11/18 19:30 01/11/18 20:00 01/11/18 23:45 Temperature 98.4 F Pulse Rate 110 H 98 H Respiratory Rate 16 20 18 Blood Pressure 110/75 Pulse Oximetry 96 01/12/18 00:00 01/12/18 01:34 01/12/18 03:00 Temperature 98.4 F Pulse Rate 110 H 91 H Respiratory Rate 18 16 Blood Pressure 137/79 Pulse Oximetry 98 01/12/18 03:56 01/12/18 04:00 01/12/18 07:00 Temperature 97.8 F Pulse Rate 88 97 H 87 Respiratory Rate 18 18 Blood Pressure 133/72 Pulse Oximetry 95 01/12/18 07:40 01/12/18 07:46 01/12/18 08:00 Temperature Pulse Rate 90 88 Respiratory Rate 20 Blood Pressure Pulse Oximetry 95 01/12/18 08:08 01/12/18 08:11 01/12/18 09:00 Temperature 97.6 F Pulse Rate 101 H 136 H Respiratory Rate 17 Blood Pressure 139/72 Pulse Oximetry 95 97 01/12/18 10:00 01/12/18 11:00 01/12/18 12:10 Temperature Pulse Rate 126 H 98 H 95 H Respiratory Rate 20 Blood Pressure Pulse Oximetry 01/12/18 12:11 01/12/18 15:00 Temperature 98 F Pulse Rate 90 96 H Respiratory Rate 17 24 Blood Pressure 117/75 Pulse Oximetry 97 Intake & Output 01/11/18 01/12/18 01/12/18 18:59 06:59 18:59 Intake Total 100 / 100 1040 / 1040 100 / 100 Output Total 1325 / 1325 Balance 100 / 100 -285 / -285 100 / 100 Weight 91.5 kg Intake: IV 100 / 100 200 / 200 100 / 100 Zosyn 3.375 GM Premix 50 ML @ 100 / 100 200 / 200 100 / 100 100 mls/hr IV.SIG Q6H KATIE Rx#: [id number] Oral 840 / 840 Output: Urine 1325 / 1325 Other: Date of Last Bowel Movement 01/04/18 01/04/18 Narrative: General: NAD, AAOx3 Skin: Left chest wall nodular metastatic skin changes. Chest: Slight wheezing on the right side Cardiac: Regular Abd: +BS, soft ND/Nt Ext: Left arm swelling, left arm nodular areas of scc mets and area of ulceration l Results - Labs CBC & Chem 7: 01/15/18 04:30 01/13/18 05:10 Laboratory Results - last 24 hr 01/12/18 01/12/18 01/12/18 05:30 05:30 05:59 WBC 3.7 L RBC 2.64 L Hgb 8.0 L Hct 23.6 L MCV 89.5 MCH 30.1 MCHC 33.6 RDW 20.3 H Plt Count 27 L MPV 7.4 Prelim Diff (Auto) Slide review pending Neut % (Auto) 94.6 H Lymph % (Auto) 1.5 L [place] % (Auto) 3.8 Eos % (Auto) 0.0 Baso % (Auto) 0.1 Neut # (Auto) 3.5 Lymph # (Auto) 0.1 L [place] # (Auto) 0.1 Eos # (Auto) 0.0 Baso # (Auto) 0.0 WBC Differential . Diff Scan Auto diff confirmed Differential Comment . Platelet Estimate Low L Platelet Morphology Normal Fibrinogen 151 L Sodium 140 Potassium 3.9 Chloride 103 Carbon Dioxide 26.0 Anion Gap 11 BUN 22 H Creatinine 0.72 Estimated GFR Greater than 89 Random Glucose 158 H Calcium 7.5 L Total Bilirubin 0.4 AST 9 L ALT 7 L Alkaline Phosphatase 43 L Total Protein 4.2 L Albumin 2.0 L Digoxin 2.1 H Assessment and Plan - Assessment (1) Metastatic squamous cell carcinoma Code(s): C79.9 - Secondary malignant neoplasm of unspecified site Status: Acute Plan: Late charting from 01/11/18 Stage IV metastatic SCC undergoing chemo and XRT Radiation dermatitis - Pt is a 72 y/o WM with 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 - Cont. with Cefazolin to cover staph. - Appreciate wound care recommendations Acute on chronic anemia. acute blood loss from gib. Gastric and duodenal ulcerations EtOH abuse - Pt underwent evaluation with EGD (01/03/18) - The esophagus this appeared to be unremarkable and within normal limits - Small hiatal hernia with a linear ulceration in the gastric cardia possibly representing a Romie ulcer, no visible vessel, no active bleeding this was biopsied - The duodenum there were multiple ulcerations noted in the duodenal bulb and the descending duodenum most were superficial and clean based one was actively bleeding just distal to the ampulla a small vessel was noted and so a clip was placed and no further bleeding was noted biopsies were taken from the ulcer sites - Pt tolerating advanced diet - H/H decreased again today from 10.2/29.6 (01/04)--> 8.3/24.1 (01/05) --> 7.9/ 23.3 (01/06) --> 1 unit PRBCs --> 6.9/20.3 (01/07)--> 2units PRBCs--> 9.2/27.0 () --> 7.5/22.3 (01/09) --> 8.2/23.9 (01/10) --> 8.0/23.6 (01/11) - Pt underwent evaluation with repeat EGD (01/08) --> Mild gastritis and two duodenal ulcers with active bleeding s/p clipping - Cont. Clear liquid diet - Pt was transfused with another 1 unit PRBCs on 01/09/18. He has had a total of 10 units PRBCs since admission. - Cont. Protonix 40mg Q12H - TUMS Q2H PRN - Monitor H/H closely and for any signs of active GIB - repeat CBC in AM A. fib RVR - On 01/09/18 pt developed A. fib RVR and was started on Cardizem gtt - Cardiology was consulted - Pt is currently rate controlled but is still on 15mls/hr of the Cardizem - Start weaning down on Cardizem gtt and will convert to oral Cardizem 60mg Q6H and monitor on telemetry - Pt is not a candidate for anticoagulants due to GIB COPD - Pt complained of SOB this morning - Chest X-Ray (01/06/18) 1. Bibasilar streakiness consistent with atelectasis and/or mild infiltrates. 2. Chronic elevation of the right hemidiaphragm. - Cont nebs and o2 - Cont. Solu-Medrol 60mg Q6H - Add Budesonide nebs BID on 01/08 - Pt was given one time dose of Lasix 20mg and KCl 40meq on 01/06 - Repeat CXR on 01/09 --> New opacity left lower lobe suspicious for inflammatory process. Concerning for new pna left lung. - Await Non-contrast Chest CT today - Abx were changed from Cefazolin to Zosyn on 01/09/18 Patient talked to palliative care earlier today (2) GIB (gastrointestinal bleeding) Code(s): K92.2 - Gastrointestinal hemorrhage, unspecified Status: Acute (3) Gastric ulceration Code(s): K25.9 - Gastric ulcer, unspecified as acute or chronic, without hemorrhage or perforation Status: Acute (4) Duodenal ulceration Code(s): K26.9 - Duodenal ulcer, unspecified as acute or chronic, without hemorrhage or perforation Status: Acute - Attending Attestation Patient examined. Assessment and plan formulated with Melody CROFT I agree with the above.
--- NOTE | 2018-01-12 16:44 | P.PNIM ---
Subjective Interval history: Follow up: Stage IV metastatic SCC undergoing chemo and XRT, Radiation dermatitis, Acute on chronic anemia. acute blood loss from gib, Gastric and duodenal ulcerations, EtOH abuse and A. fib RVR No BM in 7 days denies N/V endorses positive flatus Physical Exam Vital signs: Vital Signs 01/11/18 16:47 01/11/18 19:00 01/11/18 19:02 Temperature 98.5 F Pulse Rate 116 H 137 H 116 H Respiratory Rate 18 18 Blood Pressure 110/75 Pulse Oximetry 97 96 01/11/18 19:30 01/11/18 20:00 01/11/18 23:45 Temperature 98.4 F Pulse Rate 110 H 98 H Respiratory Rate 16 20 18 Blood Pressure 110/75 Pulse Oximetry 96 01/12/18 00:00 01/12/18 01:34 01/12/18 03:00 Temperature 98.4 F Pulse Rate 110 H 91 H Respiratory Rate 18 16 Blood Pressure 137/79 Pulse Oximetry 98 01/12/18 03:56 01/12/18 04:00 01/12/18 07:00 Temperature 97.8 F Pulse Rate 88 97 H 87 Respiratory Rate 18 18 Blood Pressure 133/72 Pulse Oximetry 95 01/12/18 07:40 01/12/18 07:46 01/12/18 08:00 Temperature Pulse Rate 90 88 Respiratory Rate 20 Blood Pressure Pulse Oximetry 95 01/12/18 08:08 01/12/18 08:11 01/12/18 09:00 Temperature 97.6 F Pulse Rate 101 H 136 H Respiratory Rate 17 Blood Pressure 139/72 Pulse Oximetry 95 97 01/12/18 10:00 01/12/18 11:00 01/12/18 12:10 Temperature Pulse Rate 126 H 98 H 95 H Respiratory Rate 20 Blood Pressure Pulse Oximetry 01/12/18 12:11 01/12/18 15:00 01/12/18 16:32 Temperature 98 F 97.9 F Pulse Rate 90 96 H 108 H Respiratory Rate 17 24 16 Blood Pressure 117/75 121/70 Pulse Oximetry 97 96 Intake & Output 01/11/18 01/12/18 01/12/18 18:59 06:59 18:59 Intake Total 100 / 100 1040 / 1040 100 / 100 Output Total 1325 / 1325 Balance 100 / 100 -285 / -285 100 / 100 Weight 91.5 kg Intake: IV 100 / 100 200 / 200 100 / 100 Zosyn 3.375 GM Premix 50 ML @ 100 / 100 200 / 200 100 / 100 100 mls/hr IV.SIG Q6H KATIE Rx#: [id number] Oral 840 / 840 Output: Urine 1325 / 1325 Other: Date of Last Bowel Movement 01/04/18 01/04/18 Narrative: General: NAD, AAOx3 Skin: Left chest wall nodular metastatic skin changes. Chest: Slight wheezing on the right side Cardiac: irregularly irregular Abd: +BS, soft ND/Nt Ext: Left arm swelling, left arm nodular areas of scc mets and area of ulceration l Results - Labs CBC & Chem 7: 01/15/18 04:30 01/13/18 05:10 Laboratory Results - last 24 hr 01/12/18 01/12/18 01/12/18 05:30 05:30 05:59 WBC 3.7 L RBC 2.64 L Hgb 8.0 L Hct 23.6 L MCV 89.5 MCH 30.1 MCHC 33.6 RDW 20.3 H Plt Count 27 L MPV 7.4 Prelim Diff (Auto) Slide review pending Neut % (Auto) 94.6 H Lymph % (Auto) 1.5 L [place] % (Auto) 3.8 Eos % (Auto) 0.0 Baso % (Auto) 0.1 Neut # (Auto) 3.5 Lymph # (Auto) 0.1 L [place] # (Auto) 0.1 Eos # (Auto) 0.0 Baso # (Auto) 0.0 WBC Differential . Diff Scan Auto diff confirmed Differential Comment . 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 - Cont. with Cefazolin to cover staph. - Appreciate wound care recommendations Acute on chronic anemia. acute blood loss from gib. Gastric and duodenal ulcerations EtOH abuse - Pt underwent evaluation with EGD (01/03/18) - The esophagus this appeared to be unremarkable and within normal limits - Small hiatal hernia with a linear ulceration in the gastric cardia possibly representing a Romie ulcer, no visible vessel, no active bleeding this was biopsied - The duodenum there were multiple ulcerations noted in the duodenal bulb and the descending duodenum most were superficial and clean based one was actively bleeding just distal to the ampulla a small vessel was noted and so a clip was placed and no further bleeding was noted biopsies were taken from the ulcer sites - Pt tolerating advanced diet - H/H decreased again today from 10.2/29.6 (01/04)--> 8.3/24.1 (01/05) --> 7.9/ 23.3 (01/06) --> 1 unit PRBCs --> 6.9/20.3 (01/07)--> 2units PRBCs--> 9.2/27.0 () --> 7.5/22.3 (01/09) --> 8.2/23.9 (01/10) --> 8.0/23.6 (01/11) --> 8.0/23.6 () - Plt 27,000 (01/12) - Pt underwent evaluation with repeat EGD (01/08) --> Mild gastritis and two duodenal ulcers with active bleeding s/p clipping - Pt was transfused with another 1 unit PRBCs on 01/09/18. He has had a total of 10 units PRBCs since admission. - Cont. Protonix 40mg Q12H - TUMS Q2H PRN - Monitor H/H closely and for any signs of active GIB - repeat CBC in AM A. fib RVR - On 01/09/18 pt developed A. fib RVR and was started on Cardizem gtt - Cardiology was consulted - Start weaning down on Cardizem gtt and will convert to oral Cardizem 60mg Q6H and monitor on telemetry - will transition to Cardizem 360 mg daily tomorrow AM - dig level 2.1 (01/12) - Pt is not a candidate for anticoagulants due to GIB COPD - Pt complained of SOB this morning - Chest X-Ray (01/06/18) 1. Bibasilar streakiness consistent with atelectasis and/or mild infiltrates. 2. Chronic elevation of the right hemidiaphragm. - Cont nebs and o2 - Cont. Solu-Medrol 60mg Q6H -> (01/12) transition to Solu-medrol 60 mg IV daily , plan to continue to wean steroid as tolerated - Add Budesonide nebs BID on 01/08 - Pt was given one time dose of Lasix 20mg and KCl 40meq on 01/06 - Repeat CXR on 01/09 --> New opacity left lower lobe suspicious for inflammatory process. Concerning for new pna left lung. - Non-contrast Chest CT (01/10) 1. Interval development of bilateral pleural effusions, left greater than right. 2. Interval development of patchy areas of groundglass opacity in the left mid and lateral lung. 3. Stable appearance to the left axillary mass. - Abx were changed from Cefazolin to Zosyn on 01/09/18, abx DC'd 01/12 - KUB in AM patient and to meet with palliative care tomorrow plan to DC in 2-3 days (2) GIB (gastrointestinal bleeding) Code(s): K92.2 - Gastrointestinal hemorrhage, unspecified Status: Acute (3) Gastric ulceration Code(s): K25.9 - Gastric ulcer, unspecified as acute or chronic, without hemorrhage or perforation Status: Acute (4) Duodenal ulceration Code(s): K26.9 - Duodenal ulcer, unspecified as acute or chronic, without hemorrhage or perforation Status: Acute - Attending Attestation Patient examined. Assessment and plan formulated with Melody CROFT I agree with the above.
[2018-01-12] MEDS: Metoprolol Inj 5 MG/5 ML Vial ONE (22:15)
--- NOTE | 2018-01-12 22:37 | XR ---
EXAM DATE: 01/12/2018 12:00 AM EDT AGE/SEX: 72 years / Male INDICATIONS: Abdominal distention. Constipation for 1 week. CLINICAL DATA: This is the patient's subsequent encounter. Patient reports that signs and symptoms h ave been present for 1 week and indicates a pain score of 5/10. MEDICAL/SURGICAL HISTORY: . Lymphoma. Gastroesophageal reflux disease. Chronic obstructive pulm onary disease. Angioplasty. . COMPARISON: [facility], ABDOMEN UPRIGHT ONLY, 06/27/2016. . FINDINGS: There is a prominent amount of stool in the right colon and transverse colon. Gas is seen in nondist ended loops of small bowel. There is a oval gas containing structure in the upper midline abdomen whi ch has a shape suggestive of a distended stomach; this cannot be confirmed with certainty. Irregular opacities in the right infrahilar region suggest either mass or consolidation. Bilateral iliac stents . Bilateral total hip arthroplasty. CONCLUSION: 1. Prominent amount of stool in the right and transverse colon. 2. Possible gaseous distention of the stomach versus dilated loop of transverse colon. 3. Infiltrate or irregular margin mass right infrahilar region Electronically signed by: Vasquez Chicas MD 01/12/2018 10:36 PM EDT
[2018-01-13] MEDS: Morphine Sulfate Inj 2 MG/ML Vial IV.PUSH PRN ×4 (04:45→19:44)
[2018-01-13 05:50] LABS: Baso % (Auto) 0.1 % (0.0-2.0); Hematocrit 22.7 % (39.0-51.0); Hemoglobin 7.7 gm/dL (13.0-17.0); Lymph # (Auto) 0.1 th/mm3 (1.0-4.8); Lymph % (Auto) 2.3 % (9.0-44.0); Mean Corpuscular HGB Conc 33.7 % (32.0-36.0); Mean Corpuscular Hemoglobin 30.7 pg (27.0-34.0); Mean Corpuscular Volume 91.3 fL (80.0-100.0); Mean Platelet Volume 7.5 fL (7.0-11.0); Mono # (Auto) 0.2 th/mm3 (0.0-0.9); Mono % (Auto) 4.7 % (0.0-8.0); Neut # (Auto) 4.1 th/mm3 (1.8-7.7); Neut % (Auto) 92.9 % (16.0-70.0); Platelet Count 26 th/mm3 (150-450); Red Blood Count 2.49 mil/mm3 (4.50-5.90); Red Cell Distribution Width 20.1 % (11.6-17.2); White Blood Count 4.4 th/mm3 (4.0-11.0)
[2018-01-13 06:08] LABS: Anion Gap 9 meq/L (5-15); Blood Urea Nitrogen 28 mg/dL (7-18); Calcium 7.3 mg/dL (8.5-10.1); Carbon Dioxide 25.5 meq/L (21.0-32.0); Chloride 104 meq/L (98-107); Glomerular Filtration Rate Greater Than 89 mL/min (>89); Glucose,Random 137 mg/dL (74-106); Magnesium 1.7 mg/dL (1.5-2.5); Potassium 3.8 meq/L (3.5-5.1); Sodium 138 meq/L (136-145)
[2018-01-13 06:26] LABS: Total Protein 3.9 g/dL (6.4-8.2)
[2018-01-13 07:52] LABS: Platelet Morphology Normal (Normal)
[2018-01-13] MEDS: dilTIAZem CD 180 MG Capsule PO SCH (08:16)
[2018-01-13] MEDS: Docusate Sodium 100 MG Capsule PO SCH ×2 (08:16→20:00)
[2018-01-13] MEDS: LORazepam 1 MG Tablet PO SCH ×2 (08:16→20:00)
[2018-01-13] MEDS: MethylPREDNISolone Sod Succinate Inj 125 MG/2 ML Vial IV.PUSH SCH (08:16)
[2018-01-13] MEDS: Pantoprazole Inj 40 MG Vial IV.PUSH SCH ×2 (08:16→20:00)
[2018-01-13] MEDS ORDERED: Sodium Chlor 0.9% Inj 250 ML IV.SIG SCH (10:00)
[2018-01-13] MEDS: Metoprolol Inj 5 MG/5 ML Vial ONE (10:37)
--- NOTE | 2018-01-13 10:54 | P.PNIM ---
Subjective Interval history: Follow up: Stage IV metastatic SCC undergoing chemo and XRT, Radiation dermatitis, Acute on chronic anemia. acute blood loss from gib, Gastric and duodenal ulcerations, EtOH abuse and A. fib RVR Offers no new concerns/complaints Physical Exam Vital signs: Vital Signs 01/12/18 11:00 01/12/18 12:10 01/12/18 12:11 Temperature 98 F Pulse Rate 98 H 95 H 90 Respiratory Rate 20 17 Blood Pressure 117/75 Pulse Oximetry 97 01/12/18 13:00 01/12/18 14:00 01/12/18 15:00 Temperature Pulse Rate 110 H 88 80 Respiratory Rate 24 Blood Pressure Pulse Oximetry 01/12/18 16:00 01/12/18 16:32 01/12/18 17:00 Temperature 97.9 F Pulse Rate 114 H 108 H 112 H Respiratory Rate 16 Blood Pressure 121/70 Pulse Oximetry 96 01/12/18 18:51 01/12/18 19:33 01/12/18 21:00 Temperature Pulse Rate 150 H 92 H 112 H Respiratory Rate 18 Blood Pressure Pulse Oximetry 98 01/12/18 22:15 01/12/18 22:35 01/12/18 23:00 Temperature 98.4 F Pulse Rate 110 H 128 H Respiratory Rate 18 17 Blood Pressure 106/68 Pulse Oximetry 98 01/12/18 23:43 01/13/18 00:00 01/13/18 01:00 Temperature 98.6 F Pulse Rate 90 90 92 H Respiratory Rate 18 20 Blood Pressure 105/67 Pulse Oximetry 98 01/13/18 02:00 01/13/18 03:00 01/13/18 04:00 Temperature Pulse Rate 90 90 88 Respiratory Rate Blood Pressure Pulse Oximetry 01/13/18 04:20 01/13/18 04:41 01/13/18 04:47 Temperature 98.3 F Pulse Rate 93 H 109 H Respiratory Rate 18 20 18 Blood Pressure 126/70 Pulse Oximetry 97 01/13/18 05:00 01/13/18 06:00 01/13/18 07:00 Temperature Pulse Rate 102 H 96 H 98 H Respiratory Rate 14 Blood Pressure Pulse Oximetry 97 01/13/18 08:00 01/13/18 09:00 01/13/18 10:00 Temperature 98.3 F Pulse Rate 90 120 H 84 Respiratory Rate 18 Blood Pressure 112/75 Pulse Oximetry 97 Intake & Output 09/26/18 09/27/18 09/27/18 18:59 06:59 18:59 Intake Total 580 / 580 Output Total 1350 / 1350 350 / 350 Balance -770 / -770 -350 / -350 Weight 90.9 kg Intake: IV 100 / 100 Zosyn 3.375 GM Premix 50 ML @ 100 / 100 100 mls/hr IV.SIG Q6H KATIE Rx#: [id number] Oral 480 / 480 Output: Urine 1350 / 1350 350 / 350 Other: Date of Last Bowel Movement 01/04/18 01/06/18 Narrative: General: NAD, AAOx3 Skin: Left chest wall nodular metastatic skin changes. Chest: Slight wheezing on the right side Cardiac: irregularly irregular Abd: +BS, soft ND/Nt Ext: Left arm swelling, left arm nodular areas of scc mets and area of ulceration l Results - Labs CBC & Chem 7: 01/13/18 05:10 01/13/18 05:10 Laboratory Results - last 24 hr 01/13/18 01/13/18 05:10 05:10 WBC 4.4 RBC 2.49 L Hgb 7.7 L Hct 22.7 L MCV 91.3 MCH 30.7 MCHC 33.7 RDW 20.1 H Plt Count 26 L MPV 7.5 Prelim Diff (Auto) Slide review pending Neut % (Auto) 92.9 H Lymph % (Auto) 2.3 L [place] % (Auto) 4.7 Eos % (Auto) 0.0 Baso % (Auto) 0.1 Neut # (Auto) 4.1 Lymph # (Auto) 0.1 L [place] # (Auto) 0.2 Eos # (Auto) 0.0 Baso # (Auto) 0.0 WBC Differential . Diff Scan Auto diff confirmed Differential Comment . Platelet Estimate Low L Platelet Morphology Normal Sodium 138 Potassium 3.8 Chloride 104 Carbon Dioxide 25.5 Anion Gap 9 BUN 28 H Creatinine 0.81 Estimated GFR Greater than 89 Random Glucose 137 H Calcium 7.3 L* Prot Corrected Calcium 9.2 Magnesium 1.7 Total Protein 3.9 L - Imaging Impressions Abdomen X-Ray 01/12/18 00:00 CONCLUSION: 1. Prominent amount of stool in the right and transverse colon. 2. Possible gaseous distention of the stomach versus dilated loop of transverse colon. 3. 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 - Cont. with Cefazolin to cover staph. - Appreciate wound care recommendations Acute on chronic anemia. acute blood loss from gib. Gastric and duodenal ulcerations EtOH abuse - Pt underwent evaluation with EGD (01/03/18) - The esophagus this appeared to be unremarkable and within normal limits - Small hiatal hernia with a linear ulceration in the gastric cardia possibly representing a Romie ulcer, no visible vessel, no active bleeding this was biopsied - The duodenum there were multiple ulcerations noted in the duodenal bulb and the descending duodenum most were superficial and clean based one was actively bleeding just distal to the ampulla a small vessel was noted and so a clip was placed and no further bleeding was noted biopsies were taken from the ulcer sites - Pt tolerating advanced diet - H/H decreased again today from 10.2/29.6 (01/04)--> 8.3/24.1 (01/05) --> 7.9/ 23.3 (01/06) --> 1 unit PRBCs --> 6.9/20.3 (01/07)--> 2units PRBCs--> 9.2/27.0 () --> 7.5/22.3 (01/09) --> 8.2/23.9 (01/10) --> 8.0/23.6 (01/11) --> 8.0/23.6 () --> 7.7/22.7 (01/13) - Plt 27,000 (01/12) --> 26,000 (01/13) - Pt underwent evaluation with repeat EGD (01/08) --> Mild gastritis and two duodenal ulcers with active bleeding s/p clipping - Pt was transfused with another 1 unit PRBCs on 01/09/18. - additional 2 units PRBC ordered 01/13. total of 12 units PRBCs since admission. - Cont. Protonix 40mg Q12H - TUMS Q2H PRN - Monitor H/H closely and for any signs of active GIB - repeat CBC in AM A. fib RVR - On 01/09/18 pt developed A. fib RVR and was started on Cardizem gtt - Cardiology was consulted - Start weaning down on Cardizem gtt and will convert to oral Cardizem 60mg Q6H and monitor on telemetry - transition to Cardizem 360 mg daily 01/13 - dig level 2.1 (01/12) -> repeat dig level pending - Pt is not a candidate for anticoagulants due to GIB COPD - Pt complained of SOB this morning - Chest X-Ray (01/06/18) 1. Bibasilar streakiness consistent with atelectasis and/or mild infiltrates. 2. Chronic elevation of the right hemidiaphragm. - Cont nebs and o2 - Cont. Solu-Medrol 60mg Q6H -> (01/12) transition to Solu-medrol 60 mg IV daily , plan to continue to wean steroid as tolerated - Add Budesonide nebs BID on 01/08 - Pt was given one time dose of Lasix 20mg and KCl 40meq on 01/06 - Repeat CXR on 01/09 --> New opacity left lower lobe suspicious for inflammatory process. Concerning for new pna left lung. - Non-contrast Chest CT (01/10) 1. Interval development of bilateral pleural effusions, left greater than right. 2. Interval development of patchy areas of groundglass opacity in the left mid and lateral lung. 3. Stable appearance to the left axillary mass. - Abx were changed from Cefazolin to Zosyn on 01/09/18, abx DC'd 01/12 - KUB 01/12: 1. Prominent amount of stool in the right and transverse colon. 2. Possible gaseous distention of the stomach versus dilated loop of transverse colon. 3. Infiltrate or irregular margin mass right infrahilar region patient and to meet with palliative care this afternoon If patient remains stable plan to DC tomorrow PT recommending rehab -> Patient thinking about SNF vs hospice (2) GIB (gastrointestinal bleeding) Code(s): K92.2 - Gastrointestinal hemorrhage, unspecified Status: Acute (3) Gastric ulceration Code(s): K25.9 - Gastric ulcer, unspecified as acute or chronic, without hemorrhage or perforation Status: Acute (4) Duodenal ulceration Code(s): K26.9 - Duodenal ulcer, unspecified as acute or chronic, without hemorrhage or perforation Status: Acute
[2018-01-13] MEDS ORDERED: Sod Phosphate/Sod Biphosphate (Adult) Enema 133 ML Bottle RECTAL ONE (12:44)
--- NOTE | 2018-01-13 15:34 | P.PNPAL ---
Reason for Visit Reason for visit: a. To assist with evaluation and management of symptoms including:dyspnea, pain , and general debility b. To assist medical decision maker(s) with: better understanding of current medical conditions; weighing benefits/burdens of medical treatment options; making medical treatment decisions. Subjective Subjective/Interval History: LATE ENTRY SEEN AT 1300 Patient seen today to follow-up on comfort, goals. Initially seen around 11am, not in yet, requests return later when she is here, after 1230. Still no BM, ongoing laxatives PO. KUB yesterday = 1. Prominent amount of stool in the right and transverse colon.2. Possible gaseous distention of the stomach versus dilated loop of transverse colon.3. Infiltrate or irregular margin mass right infrahilar region. Taking PO without issues. H&H downtrending , 7.7/22.7, plt 26 , ordered for 2 U RBC today. No obvious signs of bleeding. Heart rate remains controlled on oral cardizem. Pt seen in room w present. Lengthy discussion w pt, . Pt Oriented, pleasant and appropriate. He endorses feeling okay overall. Breathing looks less labored today than it has on prior days though he has been in bed all day today. Indicates pain to his left upper extremity is the same relieved when he uses pain medicine. Endorses his appetite is good he wishes he could eat a steak and more solid foods. Denies any GI discomfort indicates he is passing flatus. He understands he is receiving a blood trans-for low blood counts. He indicates that he has spoken with his primary about rehabilitation versus hospice. Explore with patient and his his underlying medical conditions as well as the recent complications he has GI bleeding, dyspnea and findings of pleural effusion. Review that he will remain at risk for ongoing complications and that if he continues to experience significant complications he may not get better enough to receive chemotherapy. Further explore again that underlying malignancy treatment was palliative in nature. Explore possible trajectories going forward he might pursue rehabilitation and stabilize enough to resume some chemotherapy and radiation. On the other hand he might pursue rehab therapy and experience additional complications, be unable to participate as much as he would like due to debility and deconditioning and he could sustain additional complications. As far as him option of hospice for comfort measures which he could pursue at any time, now or following rehabilitation if rehabilitation did not offer him the improvement he was hoping for. Review of hospice role, services. Also explored with patient and CPR and what resuscitation entails associated benefits/burdens and limitations. Encouraged he and his to discuss this further even if he chooses rehabilitation this may be an important decision for him in the future. All questions answered to the best of my ability. Supportive listening provided. At this time patient would like to meet with hospice to explore this option further however it does not sound as if he wishes to proceed with enrollment at this time. It sounds as if he is leaning towards pursuing rehabilitation to try as hard as he can to continue to treat his malignancy however if he continues to deteriorate or experience locations he might elect hospice and comfort only. He is going to talk further about CODE STATUS with his no decisions regarding this made. He is in agreement with hospice consultation at this time. Discussed with primary nurse, medical attending. . Objective Vital Signs: Vital Signs 01/12/18 16:00 01/12/18 16:32 01/12/18 17:00 Temperature 97.9 F Pulse Rate 114 H 108 H 112 H Respiratory Rate 16 Blood Pressure 121/70 Pulse Oximetry 96 01/12/18 18:51 01/12/18 19:33 01/12/18 21:00 Temperature Pulse Rate 150 H 92 H 112 H Respiratory Rate 18 Blood Pressure Pulse Oximetry 98 01/12/18 22:15 01/12/18 22:35 01/12/18 23:00 Temperature 98.4 F Pulse Rate 110 H 128 H Respiratory Rate 18 17 Blood Pressure 106/68 Pulse Oximetry 98 01/12/18 23:43 01/13/18 00:00 01/13/18 01:00 Temperature 98.6 F Pulse Rate 90 90 92 H Respiratory Rate 18 20 Blood Pressure 105/67 Pulse Oximetry 98 01/13/18 02:00 01/13/18 03:00 01/13/18 04:00 Temperature Pulse Rate 90 90 88 Respiratory Rate Blood Pressure Pulse Oximetry 01/13/18 04:20 01/13/18 04:41 01/13/18 04:47 Temperature 98.3 F Pulse Rate 93 H 109 H Respiratory Rate 18 20 18 Blood Pressure 126/70 Pulse Oximetry 97 01/13/18 05:00 01/13/18 06:00 01/13/18 07:00 Temperature Pulse Rate 102 H 96 H 98 H Respiratory Rate 14 Blood Pressure Pulse Oximetry 97 01/13/18 08:00 01/13/18 09:00 01/13/18 10:00 Temperature 98.3 F Pulse Rate 90 120 H 84 Respiratory Rate 18 Blood Pressure 112/75 Pulse Oximetry 97 01/13/18 11:00 01/13/18 11:31 01/13/18 12:00 Temperature 97.9 F Pulse Rate 100 H 105 H 102 H Respiratory Rate 17 18 Blood Pressure 109/59 L Pulse Oximetry 95 01/13/18 12:06 01/13/18 12:23 01/13/18 12:32 Temperature 98.6 F 98.7 F Pulse Rate 105 H 103 H Respiratory Rate 18 18 Blood Pressure 109/59 L 114/60 Pulse Oximetry 95 97 01/13/18 13:00 01/13/18 14:00 01/13/18 15:13 Temperature 98.7 F Pulse Rate 108 H 90 89 Respiratory Rate 20 Blood Pressure 99/57 L Pulse Oximetry 95 Intake & Output 01/12/18 01/13/18 01/13/18 18:59 06:59 18:59 Intake Total 580 / 580 400 / 400 Output Total 1350 / 1350 350 / 350 Balance -770 / -770 -350 / -350 400 / 400 Weight 90.9 kg Intake: IV 100 / 100 Zosyn 3.375 GM Premix 50 ML @ 100 / 100 100 mls/hr IV.SIG Q6H [facility] Rx#: [id number] Oral 480 / 480 Intake (Blood Product) Amt 400 / 400 Rbc As-3 Leukoreduced Unit 400 / 400 [id number] Rbc As-3 Leukoreduced Unit 0 / 0 [id number] Output: Urine 1350 / 1350 350 / 350 Other: Date of Last Bowel Movement 01/04/18 01/06/18 Physical Exam: CONSTITUTIONAL/GENERAL: This is an adequately nourished/obese patient, mildly dyspneic TUBES/LINES/DRAINS: right chest port, PIV SKIN: lesions noted to left upper extremity and chest wall. Dressing left arm clean/dry. Skin warm/dry CARDIOVASCULAR: Irregular rate and rhythm without murmur. Rate 90s. No JVD. Peripheral pulses symmetric. edema BUE, L> R RESPIRATORY/CHEST:unlabored respirations, slightly tachypneic w conversation. Clear to auscultation, though diminished throughout. GASTROINTESTINAL: Abdomen soft, non-tender, nondistended. No palpable masses. No guarding. Bowel sounds normoactive. MUSCULOSKELETAL: Left more edematous compared to right . ROM to LUE severely diminished NEUROLOGICAL: Awake and alert, oriented , appropriate. Follows commands. Cognitively sharp. Moves all 4 extremities. PSYCHIATRIC: No obvious anxiety/depression. no apparent hallucinations or other psychotic thought process. Diagnostic Tests Laboratory: Laboratory Results - last 72 hr 01/09/18 01/11/18 01/11/18 09:28 03:10 03:10 WBC 3.6 L RBC 2.61 L Hgb 8.0 L Hct 23.6 L MCV 90.5 MCH 30.4 MCHC 33.6 RDW 19.5 H Plt Count 28 L MPV 7.6 Prelim Diff (Auto) Slide review pending Neut % (Auto) 94.5 H Lymph % (Auto) 1.6 L Collin % (Auto) 3.8 Eos % (Auto) 0.0 Baso % (Auto) 0.1 Neut # (Auto) 3.4 Lymph # (Auto) 0.1 L Collin # (Auto) 0.1 Eos # (Auto) 0.0 Baso # (Auto) 0.0 WBC Differential . Diff Scan Auto diff confirmed Differential Comment . Platelet Estimate Low L Platelet Morphology Normal Ovalocytes 1+ H Fibrinogen Sodium 142 Potassium 3.7 Chloride 106 Carbon Dioxide 23.0 Anion Gap 13 BUN 22 H Creatinine 0.73 Estimated GFR Greater than 89 Random Glucose 157 H Calcium 7.5 L Prot Corrected Calcium Magnesium Total Bilirubin 0.5 AST 10 L ALT 7 L Alkaline Phosphatase 40 L Total Protein 4.1 L Albumin 2.0 L Digoxin Blood Type Antibody Screen MTS Gel Crossmatch See Detail 01/12/18 01/12/18 01/12/18 05:30 05:30 05:59 WBC 3.7 L RBC 2.64 L Hgb 8.0 L Hct 23.6 L MCV 89.5 MCH 30.1 MCHC 33.6 RDW 20.3 H Plt Count 27 L MPV 7.4 Prelim Diff (Auto) Slide review pending Neut % (Auto) 94.6 H Lymph % (Auto) 1.5 L Collin % (Auto) 3.8 Eos % (Auto) 0.0 Baso % (Auto) 0.1 Neut # (Auto) 3.5 Lymph # (Auto) 0.1 L Collin # (Auto) 0.1 Eos # (Auto) 0.0 Baso # (Auto) 0.0 WBC Differential . Diff Scan Auto diff confirmed Differential Comment . Platelet Estimate Low L Platelet Morphology Normal Ovalocytes Fibrinogen 151 L Sodium 140 Potassium 3.9 Chloride 103 Carbon Dioxide 26.0 Anion Gap 11 BUN 22 H Creatinine 0.72 Estimated GFR Greater than 89 Random Glucose 158 H Calcium 7.5 L Prot Corrected Calcium Magnesium Total Bilirubin 0.4 AST 9 L ALT 7 L Alkaline Phosphatase 43 L Total Protein 4.2 L Albumin 2.0 L Digoxin 2.1 H Blood Type Antibody Screen MTS Gel Crossmatch 01/13/18 01/13/18 01/13/18 05:10 05:10 10:23 WBC 4.4 RBC 2.49 L Hgb 7.7 L Hct 22.7 L MCV 91.3 MCH 30.7 MCHC 33.7 RDW 20.1 H Plt Count 26 L MPV 7.5 Prelim Diff (Auto) Slide review pending Neut % (Auto) 92.9 H Lymph % (Auto) 2.3 L Collin % (Auto) 4.7 Eos % (Auto) 0.0 Baso % (Auto) 0.1 Neut # (Auto) 4.1 Lymph # (Auto) 0.1 L Collin # (Auto) 0.2 Eos # (Auto) 0.0 Baso # (Auto) 0.0 WBC Differential . Diff Scan Auto diff confirmed Differential Comment . Platelet Estimate Low L Platelet Morphology Normal Ovalocytes Fibrinogen Sodium 138 Potassium 3.8 Chloride 104 Carbon Dioxide 25.5 Anion Gap 9 BUN 28 H Creatinine 0.81 Estimated GFR Greater than 89 Random Glucose 137 H Calcium 7.3 L* Prot Corrected Calcium 9.2 Magnesium 1.7 Total Bilirubin AST ALT Alkaline Phosphatase Total Protein 3.9 L Albumin Digoxin Blood Type A Negative Antibody Screen Negative MTS Gel Crossmatch See Detail 01/13/18 10:23 WBC RBC Hgb Hct MCV MCH MCHC RDW Plt Count MPV Prelim Diff (Auto) Neut % (Auto) Lymph % (Auto) Collin % (Auto) Eos % (Auto) Baso % (Auto) Neut # (Auto) Lymph # (Auto) Collin # (Auto) Eos # (Auto) Baso # (Auto) WBC Differential Diff Scan Differential Comment Platelet Estimate Platelet Morphology Ovalocytes Fibrinogen Sodium Potassium Chloride Carbon Dioxide Anion Gap BUN Creatinine Estimated GFR Random Glucose Calcium Prot Corrected Calcium Magnesium Total Bilirubin AST ALT Alkaline Phosphatase Total Protein Albumin Digoxin 1.1 Blood Type Antibody Screen MTS Gel Crossmatch Result Diagrams: 01/13/18 05:10 01/13/18 05:10 Imaging: Impressions Abdomen X-Ray 01/12/18 00:00 CONCLUSION: 1. Prominent amount of stool in the right and transverse colon. 2. Possible gaseous distention of the stomach versus dilated loop of transverse colon. 3. Infiltrate or irregular margin mass right infrahilar region Procedures: 01/03/18 EGD - showed actively bleeding duodenal ulcer with clipping 01/09/18 Repeat EGD - again with active bleeding of duodenal ulcer Assessment and Plan - Disease Oriented Problem List (1) Thrombocytopenia (2) Metastatic squamous cell carcinoma (3) COPD (chronic obstructive pulmonary disease) (4) Acute GI bleeding (5) Duodenal ulceration (6) New onset a-fib Pertinent Non-Medical Issues: Psychosocial: Retired, born in [place] and moved to [place] in 1985. Currently and states the couple have no biological children. He also denies any children on his own Spiritual: [place] Legal: There are no know legal issues at this time Ethical issues impacting care: There are currently no ethical issues impacting Mr. Calderon's care Important Contacts: Roma Calderon, /HCP: [phone] Prognosis: With continued aggressive medical treatment, the patient may be able to stabilize and continue current cancer treatments. Given multiple, complex medical issues the patient is at high risk for mortality and would be hospice appropriate if goals were compatible Code Status: Full Code Plan: * Legal decision maker: Patient is currently able to make his own medical decisions, though if he were unable to do so, his Roma Calderon would be healthcare proxy * Goals: Patient , understand gravity of conditions. He had prev. been hopeful his condition can be stabilized enough to where he can be discharged and continue with cancer treatments. At this time patient would like to meet with hospice to explore this option further however it does not sound as if he wishes to proceed with enrollment at this time. It sounds as if he is leaning towards pursuing rehabilitation to try as hard as he can to continue to treat his malignancy however if he continues to deteriorate or experience locations he might elect hospice and comfort only. He is going to talk further about CODE STATUS with his no decisions regarding this made. He is in agreement with hospice consultation at this time. * CODE STATUS: FULL CODE * * SYMPTOMS:Dyspnea - long standing COPD with O2 dependence, concern for inflammatory process this admission. CT= 1. Interval development of bilateral pleural effusions, left greater than right.2. Interval development of patchy areas of groundglass opacity in the left mid and lateral lung.3. Stable appearance to the left axillary mass. Currently SOB with any activity including eating, talking. May require thoracentesis, though plt low . On nebulizer and steroid treatments. At high risk for increased decompensation/intubation * Pain - can be as severe as a 10, mostly revolves around movement but can be spontaneous. Does appear to have a neuropathic or inflammation component as well. Currently on 2mg Morphine IVP Q2H. May benefit from Gabapentin or Lyrica if neuropathic pain persists after edema improves. Currently on IV corticosteroids for breathing, should help some with inflammatory pain related issues. May consider a stronger (Ultram or [place]) for retirement use as he should no longer use OTC NSAIDS. Insomnia - most likely multifactorial including pain, and hospital environment. By report this is a long standing issue if persistent can consider melatonin use * constipation- No bm since admission . Receiving multiple PO laxatives. KUB = 1. Prominent amount of stool in the right and transverse colon.2. Possible gaseous distention of the stomach versus dilated loop of transverse colon.3. Infiltrate or irregular margin mass right infrahilar region . Bowel sounds are active, passing flatus. Abdominal exam benign. attending adding enema. Recommend scheduled senna to keep regular once current acute constipation resolves. * Discussed with medical attending and health care recruiter will continue to follow during hospital course as condition evolves, to assist patient/decision-maker with understanding of medical conditions, weighing benefits/burdens of treatment options, for clarification of goals of treatment. Additionally will assist with any symptoms of palliative concern add my plan Attestation Attestation: To help prompt me to consider important information that might be impacting today's encounter and assessment, information from prior notes written by myself or my colleagues may have been "brought forward" into today's note. My signature on this note, however, is an attestation that I personally performed the exam, history, and/or decision-making noted today, and, unless otherwise indicated, the interactions with patient, family, and staff as well as the review of records all occurred today. I also attest that the listed assessment and stated plan reflect my best clinical judgment today based on the combination of historical information, prior notes, and today's exam/ interactions. When time spent is documented, it refers only to time spent today by the signer, or if indicated, combined time spent today by collaborating physician/nurse practitioner.
[2018-01-13] MEDS: dilTIAZem 60 MG Tablet PO SCH (19:45)
--- NOTE | 2018-01-13 22:30 | ECG ---
Date Performed: 01/12/2018 Time Performed: 23:21:00 PTAGE: 72 years EKG: Possible atrial fibrillation/flutter with rapid ventricular response Extensive ST-T changes Abnormal ECG Since the PREVIOUS TRACING , no significant change noted DOCTOR: Lex York Interpretating Date/Time 01/13/2018 22:28:08
[2018-01-14] MEDS: Morphine Sulfate Inj 2 MG/ML Vial IV.PUSH PRN ×3 (01:00→06:07)
[2018-01-14] MEDS: dilTIAZem 60 MG Tablet PO SCH (02:19)
--- NOTE | 2018-01-14 04:59 | XR ---
EXAM DATE: 01/14/2018 6:00 AM EDT AGE/SEX: 72 years / Male INDICATIONS: Distention. CLINICAL DATA: This is the patient's subsequent encounter. Patient reports that signs and symptoms h ave been present for 1 week and indicates a pain score of 5/10. MEDICAL/SURGICAL HISTORY: . Lymphoma. Gastroesophageal reflux disease. Chronic obstructive pulm onary disease. . Angioplasty. COMPARISON: C, ABDOMEN 1V KUB, 01/12/2018. . FINDINGS: Upper limits of normal caliber colon and upper limits of normal to mildly distended small bowel both slightly improved. Gastric distention has decreased considerably in the interim, now mild. No free a ir seen. CONCLUSION: Probable resolving ileus. Much less distention of the stomach in the interim. Electronically signed by: Vidal Moreno MD 01/14/2018 4:57 AM EDT
[2018-01-14 07:01] LABS: Baso % (Auto) 0.1 % (0.0-2.0); Eos % (Auto) 0.1 % (0.0-4.0); Hematocrit 28.1 % (39.0-51.0); Hemoglobin 9.5 gm/dL (13.0-17.0); Lymph # (Auto) 0.1 th/mm3 (1.0-4.8); Lymph % (Auto) 2.9 % (9.0-44.0); Mean Corpuscular HGB Conc 33.7 % (32.0-36.0); Mean Corpuscular Hemoglobin 29.9 pg (27.0-34.0); Mean Platelet Volume 7.8 fL (7.0-11.0); Mono # (Auto) 0.2 th/mm3 (0.0-0.9); Mono % (Auto) 3.9 % (0.0-8.0); Neut # (Auto) 4.3 th/mm3 (1.8-7.7); Platelet Count 21 th/mm3 (150-450); Red Blood Count 3.16 mil/mm3 (4.50-5.90); Red Cell Distribution Width 18.7 % (11.6-17.2); White Blood Count 4.7 th/mm3 (4.0-11.0)
[2018-01-14] MEDS: Pantoprazole Inj 40 MG Vial IV.PUSH SCH ×2 (08:23→21:30)
[2018-01-14] MEDS: dilTIAZem CD 180 MG Capsule PO SCH (08:24)
[2018-01-14] MEDS: predniSONE 10 MG Tablet PO SCH ×2 (08:24→21:31)
[2018-01-14] MEDS: Docusate Sodium 100 MG Capsule PO SCH ×2 (08:24→22:21)
[2018-01-14] MEDS: LORazepam 1 MG Tablet PO SCH ×2 (08:24→21:30)
[2018-01-14 08:38] LABS: Platelet Morphology Normal (Normal)
[2018-01-14] MEDS ORDERED: Sodium Chlor 0.9% Inj 250 ML IV.SIG SCH (11:00)
--- NOTE | 2018-01-14 11:07 | P.PNGI ---
Subjective Interval history: Our service has been reconsulted due to continued anemia with recent stool retested and is Hemoccult positive. It appears that patient's hemoglobin has been fairly stable since previous endoscopy on January 08 which revealed duodenal ulcer with visible vessels status post clipping. He received 2 units of PRBCs yesterday with good response. Discussed with RN who states that patient has had 3 bowel movements since yesterday, all of which have been dark brown, no reports of melena or bright red blood in his stools. Patient denies any nausea, vomiting, abdominal pain. Of note, palliative care is currently following and patient is in agreement with hospice consult. Pt was previously on anticoagulation for a-fib, this has been on hold. <Jonelle Yee - Last Filed: 01/14/18 11:00> Physical Exam Vital signs: Vital Signs 01/13/18 11:31 01/13/18 12:00 01/13/18 12:06 Temperature 97.9 F 98.6 F Pulse Rate 105 H 102 H 105 H Respiratory Rate 18 18 Blood Pressure 109/59 L 109/59 L Pulse Oximetry 95 95 01/13/18 12:23 01/13/18 12:32 01/13/18 13:00 Temperature 98.7 F Pulse Rate 103 H 108 H Respiratory Rate 18 Blood Pressure 114/60 Pulse Oximetry 97 01/13/18 14:00 01/13/18 15:00 01/13/18 15:13 Temperature 98.7 F Pulse Rate 90 83 89 Respiratory Rate 20 Blood Pressure 99/57 L Pulse Oximetry 95 01/13/18 15:35 01/13/18 16:00 01/13/18 16:04 Temperature 98.2 F 98.2 F Pulse Rate 89 78 90 Respiratory Rate 20 18 15 Blood Pressure 100/53 L 100/53 L Pulse Oximetry 96 97 01/13/18 17:00 01/13/18 18:00 01/13/18 18:49 Temperature Pulse Rate 86 100 H 87 Respiratory Rate Blood Pressure Pulse Oximetry 01/13/18 19:46 01/13/18 20:00 01/13/18 20:13 Temperature Pulse Rate 96 H 86 Respiratory Rate 18 18 Blood Pressure Pulse Oximetry 96 01/13/18 21:00 01/13/18 22:00 01/14/18 00:00 Temperature Pulse Rate 96 H 96 H 98 H Respiratory Rate Blood Pressure Pulse Oximetry 01/14/18 00:28 01/14/18 00:40 01/14/18 01:00 Temperature 98.4 F Pulse Rate 101 H 90 102 H Respiratory Rate 18 20 Blood Pressure 124/71 Pulse Oximetry 96 01/14/18 04:00 01/14/18 04:06 01/14/18 05:00 Temperature 97.7 F Pulse Rate 78 99 H 66 Respiratory Rate 19 Blood Pressure 100/60 Pulse Oximetry 95 01/14/18 06:00 01/14/18 07:35 01/14/18 07:36 Temperature Pulse Rate 62 88 Respiratory Rate 20 Blood Pressure Pulse Oximetry 97 Intake & Output 01/13/18 01/14/18 01/14/18 18:59 06:59 18:59 Intake Total 1150 / 1150 260 / 260 Output Total 700 / 700 800 / 800 Balance 450 / 450 -540 / -540 Weight 90.5 kg Intake: IV 20 / 20 NS Inj 250 ML @ 15 mls/hr IV. 20 / 20 SIG ONCE KATIE Rx#:[id number] Oral 750 / 750 240 / 240 Intake (Blood Product) Amt 400 / 400 Rbc As-3 Leukoreduced Unit 400 / 400 [id number] Rbc As-3 Leukoreduced Unit 0 / 0 [id number] Output: Urine 700 / 700 800 / 800 Other: # Voids 1 Date of Last Bowel Movement 01/13/18 01/13/18 # Bowel Movements 1 1 - Constitutional no acute distress - Routine HEENT Exam Head: Present: normocephalic, atraumatic - Routine Respiratory Exam Absent: accessory muscle use - Routine Cardiovascular Exam Present: irregularly irregular - Routine Abdominal Exam Present: soft, normoactive bowel sounds. Absent: tenderness, distended - Routine Neurological Exam Present: alert, oriented X3 <Jonelle Yee - Last Filed: 01/14/18 11:00> Vital signs: Vital Signs 01/13/18 12:06 01/13/18 12:23 01/13/18 12:32 Temperature 98.6 F 98.7 F Pulse Rate 105 H 103 H Respiratory Rate 18 18 Blood Pressure 109/59 L 114/60 Pulse Oximetry 95 97 01/13/18 13:00 01/13/18 14:00 01/13/18 15:00 Temperature Pulse Rate 108 H 90 83 Respiratory Rate Blood Pressure Pulse Oximetry 01/13/18 15:13 01/13/18 15:35 01/13/18 16:00 Temperature 98.7 F 98.2 F 98.2 F Pulse Rate 89 89 78 Respiratory Rate 20 20 18 Blood Pressure 99/57 L 100/53 L 100/53 L Pulse Oximetry 95 96 97 01/13/18 16:04 01/13/18 17:00 01/13/18 18:00 Temperature Pulse Rate 90 86 100 H Respiratory Rate 15 Blood Pressure Pulse Oximetry 01/13/18 18:49 01/13/18 19:46 01/13/18 20:00 Temperature Pulse Rate 87 96 H Respiratory Rate 18 Blood Pressure Pulse Oximetry 01/13/18 20:13 01/13/18 21:00 01/13/18 22:00 Temperature Pulse Rate 86 96 H 96 H Respiratory Rate 18 Blood Pressure Pulse Oximetry 96 01/14/18 00:00 01/14/18 00:28 01/14/18 00:40 Temperature 98.4 F Pulse Rate 98 H 101 H 90 Respiratory Rate 18 20 Blood Pressure 124/71 Pulse Oximetry 96 01/14/18 01:00 01/14/18 04:00 01/14/18 04:06 Temperature 97.7 F Pulse Rate 102 H 78 99 H Respiratory Rate 19 Blood Pressure 100/60 Pulse Oximetry 95 01/14/18 05:00 01/14/18 06:00 01/14/18 07:35 Temperature Pulse Rate 66 62 88 Respiratory Rate 20 Blood Pressure Pulse Oximetry 01/14/18 07:36 01/14/18 08:00 01/14/18 09:00 Temperature 98.6 F Pulse Rate 105 H 80 Respiratory Rate 18 Blood Pressure 127/77 Pulse Oximetry 97 94 L 01/14/18 11:00 01/14/18 11:34 01/14/18 11:43 Temperature 98.0 F Pulse Rate 70 72 84 Respiratory Rate 18 Blood Pressure 112/58 L Pulse Oximetry 97 Intake & Output 01/13/18 01/14/18 01/14/18 18:59 06:59 18:59 Intake Total 1150 / 1150 260 / 260 0 / 0 Output Total 700 / 700 800 / 800 Balance 450 / 450 -540 / -540 0 / 0 Weight 90.5 kg Intake: IV 20 / 20 NS Inj 250 ML @ 15 mls/hr IV. SIG ONCE KATIE Rx#:[id number] Oral 750 / 750 240 / 240 Intake (Blood Product) Amt 400 / 400 0 / 0 Plt Pheresis B Leukoreduced 0 / 0 Unit [id number] Rbc As-3 Leukoreduced Unit 400 / 400 [id number] Rbc As-3 Leukoreduced Unit 0 / 0 0 / 0 [id number] Output: Urine 700 / 700 800 / 800 Other: # Voids 1 Date of Last Bowel Movement 01/13/18 01/13/18 01/06/18 # Bowel Movements 1 1 <NigelTony betancourt - Last Filed: 01/14/18 12:06> Results - Labs CBC & Chem 7: 01/14/18 06:00 01/13/18 05:10 Laboratory Results - last 24 hr 01/09/18 01/13/18 01/13/18 09:28 10:23 10:23 WBC RBC Hgb Hct MCV MCH MCHC RDW Plt Count MPV Prelim Diff (Auto) Neut % (Auto) Lymph % (Auto) [place] % (Auto) Eos % (Auto) Baso % (Auto) Neut # (Auto) Lymph # (Auto) [place] # (Auto) Eos # (Auto) Baso # (Auto) WBC Differential Diff Scan Differential Comment Platelet Estimate Platelet Morphology Digoxin 1.1 Blood Type A Negative Antibody Screen Negative MTS Gel Crossmatch See Detail See Detail 01/14/18 06:00 WBC 4.7 RBC 3.16 L Hgb 9.5 L Hct 28.1 L MCV 89.0 MCH 29.9 MCHC 33.7 RDW 18.7 H Plt Count 21 L MPV 7.8 Prelim Diff (Auto) Slide review pending Neut % (Auto) 93.0 H Lymph % (Auto) 2.9 L [place] % (Auto) 3.9 Eos % (Auto) 0.1 Baso % (Auto) 0.1 Neut # (Auto) 4.3 Lymph # (Auto) 0.1 L [place] # (Auto) 0.2 Eos # (Auto) 0.0 Baso # (Auto) 0.0 WBC Differential . Diff Scan Auto diff confirmed Differential Comment . Platelet Estimate Low L Platelet Morphology Normal Digoxin Blood Type Antibody Screen MTS Gel Crossmatch Microbiology 01/13/18 19:40 Stool Occult Blood - Final Hemoccult positive - Imaging Impressions Abdomen X-Ray 01/14/18 06:00 CONCLUSION: Probable resolving ileus. Much less distention of the stomach in the interim. <Jonelle Yee - Last Filed: 01/14/18 11:00> - Labs CBC & Chem 7: 01/14/18 06:00 01/13/18 05:10 Laboratory Results - last 24 hr 01/09/18 01/13/18 01/14/18 09:28 10:23 06:00 WBC 4.7 RBC 3.16 L Hgb 9.5 L Hct 28.1 L MCV 89.0 MCH 29.9 MCHC 33.7 RDW 18.7 H Plt Count 21 L MPV 7.8 Prelim Diff (Auto) Slide review pending Neut % (Auto) 93.0 H Lymph % (Auto) 2.9 L [place] % (Auto) 3.9 Eos % (Auto) 0.1 Baso % (Auto) 0.1 Neut # (Auto) 4.3 Lymph # (Auto) 0.1 L [place] # (Auto) 0.2 Eos # (Auto) 0.0 Baso # (Auto) 0.0 WBC Differential . Diff Scan Auto diff confirmed Differential Comment . Platelet Estimate Low L Platelet Morphology Normal Blood Type A Negative Antibody Screen Negative MTS Gel Crossmatch See Detail See Detail Bld Prod Order Comment 01/14/18 10:54 WBC RBC Hgb Hct MCV MCH MCHC RDW Plt Count MPV Prelim Diff (Auto) Neut % (Auto) Lymph % (Auto) [place] % (Auto) Eos % (Auto) Baso % (Auto) Neut # (Auto) Lymph # (Auto) [place] # (Auto) Eos # (Auto) Baso # (Auto) WBC Differential Diff Scan Differential Comment Platelet Estimate Platelet Morphology Blood Type Antibody Screen MTS Gel Crossmatch Bld Prod Order Comment Microbiology 01/13/18 19:40 Stool Occult Blood - Final Hemoccult positive - Imaging Impressions Abdomen X-Ray 01/14/18 06:00 CONCLUSION: Probable resolving ileus. Much less distention of the stomach in the interim. <Tony Manning - Last Filed: 01/14/18 12:06> Assessment and Plan - Plan Assessment: - Anemia with reports of GIB S/P EGD x 2 since admission EGD (01/02) Hiatal hernia. Gastric ulcer possibly a Romie ulcer. Duodenal ulcers one of which was actively bleeding S/P clip. EGD (01/08) Mild gastritis. Duodenal ulcers with active bleeding S/P clips. Reconsulted 01/14 for continued anemia and stool retested which is Hemoccult positive. Discussed with RN who states pt has had no obvious BRB in his stools or melena. Pt denies nausea , vomiting, abdominal pain. Hgb has been low but seems to have been stable since last EGD. Plan: STAT NM bleeding scan Transfuse one unit of platelets Depending on findings pt may need IR consult for angio with embolization Palliative care following, pt considering Hospice Continue supportive care Further recommendations to follow This patient has been seen and examined by myself and Dr. Manning and this note is written on his behalf <Jonelle Yee - Last Filed: 01/14/18 11:00> - Plan Seen and examined with CAPTAIN/AIRLINE PILOT, STAT bleeding scan if signs of active bleeding followed by Embolization if +VE. Has failed endoscopic management. Transfuse as needed. IV protonix. Diet as tolerated. The exam, history, and the medical decision-making described in the above note were completed with the assistance of the mid-level provider. I reviewed and agree with the findings presented. I attest that I had a [id number] encounter with the patient on the same day, and personally performed and documented my assessment and findings in the medical record. <Tony Manning - Last Filed: 01/14/18 12:06>
--- NOTE | 2018-01-14 15:00 | NM ---
EXAM DATE: 01/14/2018 11:59 AM EDT AGE/SEX: 72 years / Male INDICATIONS: Rectal bleeding. CLINICAL DATA: This is the patient's initial encounter. Patient reports that signs and symptoms have been present for 1 day and indicates a pain score of 0/10. MEDICAL/SURGICAL HISTORY: Chronic obstructive pulmonary disease. Gastroesophageal reflux disea se. Hypertension. . Hip replacement and shoulder. COMPARISON: [facility], CT ABDOMEN AND PELVIS W/ CONTRAST, 12/06/2017. . TECHNIQUE: Following the modified in vitro labeling of autologous red cells, dynamic continuous image s were acquired for two hours. ?? DOSE: 21.0 mCi Tc 99m Ultratag Labeled Red Blood Cells IV IMAGING TIME: 2 hr FINDINGS: Biodistribution: There is a very good labeling of red cells without significant uptake in the gastri c wall. There is good delineation of the blood pool of the spleen and abdominal vessels. Bleeding: No episodes of active GI bleeding are observed during two hours of continuous observation . There is prominent penile activity visualized. Bladder activity is also documented. CONCLUSION: No active GI bleeding is identified. Electronically signed by: Vidal Valentine MD 01/14/2018 2:59 PM EDT
--- NOTE | 2018-01-14 16:20 | P.PNIM ---
Subjective Interval history: No new complaints. Physical Exam Vital signs: 01/14/18 15:00 01/14/18 15:33 Temperature 98.3 F Pulse Rate 94 H 91 H Respiratory Rate 18 Blood Pressure 114/68 Pulse Oximetry 98 Narrative: General: NAD, AAOx3 Skin: Left chest wall nodular metastatic skin changes. Chest: clear x b/l Cardiac: irregularly irregular Abd: +BS, soft ND/Nt Ext: Left arm swelling, left arm nodular areas of scc mets and area of ulceration l Results - Labs CBC & Chem 7: 01/15/18 04:30 01/13/18 05:10 Microbiology 01/13/18 19:40 Stool Occult Blood - Final Hemoccult positive - Imaging Impressions Abdomen X-Ray 01/14/18 06:00 CONCLUSION: Probable resolving ileus. Much less distention of the stomach in the interim. GI Bleed Scan Nuclear Medicine 01/14/18 10:54 CONCLUSION: No active GI bleeding is identified. 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 - Cont. with Cefazolin to cover staph. - Appreciate wound care recommendations Acute on chronic anemia. acute blood loss from gib. Gastric and duodenal ulcerations EtOH abuse - Pt underwent evaluation with EGD (01/03/18) - The esophagus this appeared to be unremarkable and within normal limits - Small hiatal hernia with a linear ulceration in the gastric cardia possibly representing a Romie ulcer, no visible vessel, no active bleeding this was biopsied - The duodenum there were multiple ulcerations noted in the duodenal bulb and the descending duodenum most were superficial and clean based one was actively bleeding just distal to the ampulla a small vessel was noted and so a clip was placed and no further bleeding was noted biopsies were taken from the ulcer sites - Pt tolerating advanced diet - H/H decreased again today from 10.2/29.6 (01/04)--> 8.3/24.1 (01/05) --> 7.9/ 23.3 (01/06) --> 1 unit PRBCs --> 6.9/20.3 (01/07)--> 2units PRBCs--> 9.2/27.0 () --> 7.5/22.3 (01/09) --> 8.2/23.9 (01/10) --> 8.0/23.6 (01/11) --> 8.0/23.6 () --> 7.7/22.7 (01/13) - Plt 27,000 (01/12) --> 26,000 (01/13) - Pt underwent evaluation with repeat EGD (01/08) --> Mild gastritis and two duodenal ulcers with active bleeding s/p clipping - Pt was transfused with another 1 unit PRBCs on 01/09/18. - additional 2 units PRBC ordered 01/13. total of 12 units PRBCs since admission. - Hg 9.5 (01/14), platelet 26 (01/14) - platelet transfusion per GI (01/14) - Cont. Protonix 40mg Q12H - Bleeding Scan (01/14) --> negative - TUMS Q2H PRN - repeat CBC in AM - PT - anticipate d/c to SNF 01/15/18 A. fib RVR - On 01/09/18 pt developed A. fib RVR and was started on Cardizem gtt - Cardiology was consulted - Start weaning down on Cardizem gtt and will convert to oral Cardizem 60mg Q6H and monitor on telemetry - transition to Cardizem 360 mg daily 01/13 - Pt is not a candidate for anticoagulants due to GIB COPD - Pt complained of SOB this morning - Chest X-Ray (01/06/18) 1. Bibasilar streakiness consistent with atelectasis and/or mild infiltrates. 2. Chronic elevation of the right hemidiaphragm. - Cont nebs and o2 - Cont. Solu-Medrol 60mg Q6H -> (01/12) transition to Solu-medrol 60 mg IV daily , plan to continue to wean steroid as tolerated - Add Budesonide nebs BID on 01/08 - Pt was given one time dose of Lasix 20mg and KCl 40meq on 01/06 - Repeat CXR on 01/09 --> New opacity left lower lobe suspicious for inflammatory process. Concerning for new pna left lung. - Non-contrast Chest CT (01/10) 1. Interval development of bilateral pleural effusions, left greater than right. 2. Interval development of patchy areas of groundglass opacity in the left mid and lateral lung. 3. Stable appearance to the left axillary mass. - Abx were changed from Cefazolin to Zosyn on 01/09/18, abx DC'd 01/12 - KUB 01/12: 1. Prominent amount of stool in the right and transverse colon. 2. Possible gaseous distention of the stomach versus dilated loop of transverse colon. 3. Infiltrate or irregular margin mass right infrahilar region patient and to meet with palliative care this afternoon If patient remains stable plan to DC tomorrow PT recommending rehab -> Patient thinking about SNF vs hospice (2) GIB (gastrointestinal bleeding) Code(s): K92.2 - Gastrointestinal hemorrhage, unspecified Status: Acute (3) Gastric ulceration Code(s): K25.9 - Gastric ulcer, unspecified as acute or chronic, without hemorrhage or perforation Status: Acute (4) Duodenal ulceration Code(s): K26.9 - Duodenal ulcer, unspecified as acute or chronic, without hemorrhage or perforation Status: Acute
[2018-01-15 05:47] LABS: Baso % (Auto) 0.1 % (0.0-2.0); Hemoglobin 10.1 gm/dL (13.0-17.0); Lymph # (Auto) 0.1 th/mm3 (1.0-4.8); Lymph % (Auto) 2.2 % (9.0-44.0); Mean Corpuscular HGB Conc 33.6 % (32.0-36.0); Mean Corpuscular Volume 89.3 fL (80.0-100.0); Mean Platelet Volume 7.8 fL (7.0-11.0); Mono # (Auto) 0.2 th/mm3 (0.0-0.9); Mono % (Auto) 3.5 % (0.0-8.0); Neut # (Auto) 4.2 th/mm3 (1.8-7.7); Neut % (Auto) 94.2 % (16.0-70.0); Platelet Count 33 th/mm3 (150-450); Red Blood Count 3.36 mil/mm3 (4.50-5.90); Red Cell Distribution Width 18.8 % (11.6-17.2); White Blood Count 4.5 th/mm3 (4.0-11.0)
[2018-01-15 06:50] LABS: Lymphocytes 2 % (9-44); Monocytes 2 % (0-8)
[2018-01-15 06:51] LABS: Platelet Morphology Normal (Normal)
[2018-01-15] MEDS: LORazepam 1 MG Tablet PO SCH (08:23)
[2018-01-15] MEDS: predniSONE 10 MG Tablet PO SCH (08:23)
[2018-01-15] MEDS: Pantoprazole Inj 40 MG Vial IV.PUSH SCH (08:24)
[2018-01-15] MEDS: dilTIAZem CD 180 MG Capsule PO SCH (08:24)
[2018-01-15] MEDS: Docusate Sodium 100 MG Capsule PO SCH (08:25)
[2018-01-15 09:26] VITALS: O2SAT 98
--- NOTE | 2018-01-15 12:19 | P.DS ---
<Melody Salguero - Last Filed: 01/15/18 12:13> Date of admission: 01/02/18 17:59 Primary care physician: Ryley Rodgers MD Attending physician on discharge: Zaheer Murcia Anticipated date of discharge: 01/15/18 Brief History from admission: 72-year-old gentleman initially called paramedics for shortness of breath. He has COPD and still smokes. He is also fairly heavy drinker. He has history of metastatic cancer and is getting radiation therapy. He is due to start chemotherapy after the radiation treatments. He denies fever or chest pain. His symptoms have been exacerbated by his noncompliance with substance abuse recommendations. He does wear oxygen. In the emergency department his hemoglobin was found to be 4.9. He does admit some maroon and black stool. He is on Xarelto for upper extremity DVT. He has been transfused 4 units of PRBCs started in the emergency department and is admitted to ICU. 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 - initially on Cefazolin to cover staph. - Appreciate wound care recommendations Acute on chronic anemia. acute blood loss from gib. Gastric and duodenal ulcerations EtOH abuse - Pt underwent evaluation with EGD (01/03/18) - The esophagus this appeared to be unremarkable and within normal limits - Small hiatal hernia with a linear ulceration in the gastric cardia possibly representing a Romie ulcer, no visible vessel, no active bleeding this was biopsied - The duodenum there were multiple ulcerations noted in the duodenal bulb and the descending duodenum most were superficial and clean based one was actively bleeding just distal to the ampulla a small vessel was noted and so a clip was placed and no further bleeding was noted biopsies were taken from the ulcer sites - Pt tolerating advanced diet - H/H decreased again today from 10.2/29.6 (01/04)--> 8.3/24.1 (01/05) --> 7.9/ 23.3 (01/06) --> 1 unit PRBCs --> 6.9/20.3 (01/07)--> 2units PRBCs--> 9.2/27.0 () --> 7.5/22.3 (01/09) --> 8.2/23.9 (01/10) --> 8.0/23.6 (01/11) --> 8.0/23.6 () --> 7.7/22.7 (01/13) -> 10.1/30.0 (01/15) - Plt 27,000 (01/12) --> 26,000 (01/13) --> 33,000 (01/15) - Pt underwent evaluation with repeat EGD (01/08) --> Mild gastritis and two duodenal ulcers with active bleeding s/p clipping - Pt was transfused with another 1 unit PRBCs on 01/09/18. - additional 2 units PRBC ordered 01/13. total of 12 units PRBCs since admission. - Hg 9.5 (01/14), platelet 26 (01/14) - platelet transfusion per GI (01/14) - Cont. Protonix 40mg Q12H - Bleeding Scan (01/14) --> negative - TUMS Q2H PRN - repeat CBC 01/15 10.1 - PT - anticipate d/c to SNF 01/15/18 A. fib RVR - On 01/09/18 pt developed A. fib RVR and was started on Cardizem gtt - Cardiology was consulted - Start weaning down on Cardizem gtt and will convert to oral Cardizem 60mg Q6H and monitor on telemetry - transition to Cardizem 360 mg daily 01/13 - Pt is not a candidate for anticoagulants due to GIB COPD - Pt complained of SOB this morning - Chest X-Ray (01/06/18) 1. Bibasilar streakiness consistent with atelectasis and/or mild infiltrates. 2. Chronic elevation of the right hemidiaphragm. - Cont nebs and o2 - Cont. Solu-Medrol 60mg Q6H -> (01/12) transition to Solu-medrol 60 mg IV daily , wean steroid - Add Budesonide nebs BID on 01/08 - Pt was given one time dose of Lasix 20mg and KCl 40meq on 01/06 - Repeat CXR on 01/09 --> New opacity left lower lobe suspicious for inflammatory process. Concerning for new pna left lung. - Non-contrast Chest CT (01/10) 1. Interval development of bilateral pleural effusions, left greater than right. 2. Interval development of patchy areas of groundglass opacity in the left mid and lateral lung. 3. Stable appearance to the left axillary mass. - Abx were changed from Cefazolin to Zosyn on 01/09/18, abx DC'd 01/12 - KUB 01/12: 1. Prominent amount of stool in the right and transverse colon. 2. Possible gaseous distention of the stomach versus dilated loop of transverse colon. 3. Infiltrate or irregular margin mass right infrahilar region patient and to meet with palliative care during this admission PT recommending rehab -> Patient agrees to SNF, considering Hospice if he does not improve at SNF - Time Spent with Patient Total time spent providing and/or coordinating discharge services: Greater than 30 minutes - Quality: VTE Deep Vein Thrombosis/Pulmonary Embolism Present on Admission: No Exam Vital signs: Vital Signs 01/14/18 15:00 01/14/18 15:33 01/14/18 16:49 Temperature 98.3 F Pulse Rate 94 H 91 H 94 H Respiratory Rate 18 20 Blood Pressure 114/68 Pulse Oximetry 98 98 01/14/18 16:50 01/14/18 17:46 01/14/18 19:03 Temperature Pulse Rate 95 H 95 H Respiratory Rate 18 18 Blood Pressure Pulse Oximetry 01/14/18 20:00 01/14/18 21:25 01/14/18 22:00 Temperature 98.0 F Pulse Rate 96 H 97 H Respiratory Rate 19 16 Blood Pressure 133/73 Pulse Oximetry 97 01/15/18 00:16 01/15/18 00:22 01/15/18 01:27 Temperature 97.9 F Pulse Rate 93 H 91 H 100 H Respiratory Rate 19 22 Blood Pressure 140/85 Pulse Oximetry 92 L 01/15/18 04:00 01/15/18 04:14 01/15/18 05:56 Temperature 97.7 F Pulse Rate 97 H 98 H 82 Respiratory Rate 19 20 Blood Pressure 143/76 H Pulse Oximetry 97 01/15/18 07:00 01/15/18 07:58 01/15/18 08:00 Temperature 98.6 F Pulse Rate 92 H 87 92 H Respiratory Rate 18 18 Blood Pressure 123/72 Pulse Oximetry 97 98 01/15/18 09:26 Temperature Pulse Rate Respiratory Rate 18 Blood Pressure Pulse Oximetry Intake & Output 01/14/18 01/15/18 01/15/18 18:59 06:59 18:59 Intake Total 500 / 500 720 / 720 284 / 284 Output Total 900 / 900 Balance 500 / 500 -180 / -180 284 / 284 Intake: Oral 500 / 500 720 / 720 Intake (Blood Product) Amt 0 / 0 284 / 284 Plt Pheresis B Leukoreduced 0 / 0 284 / 284 Unit [id number] Rbc As-3 Leukoreduced Unit 0 / 0 [id number] Output: Urine 900 / 900 Other: Date of Last Bowel Movement 01/14/18 01/15/18 01/15/18 # Bowel Movements 1 1 # Incontinent Bowel Movements 1 Narrative: General: NAD, AAOx3 Skin: Left chest wall nodular metastatic skin changes. Chest: clear through out Cardiac: irregularly irregular Abd: +BS, soft ND/Nt Ext: Left arm swelling, left arm nodular areas of scc mets and area of ulceration l Results Procedures completed during hospitalization: - Pt underwent evaluation with EGD (01/03/18) - The esophagus this appeared to be unremarkable and within normal limits - Small hiatal hernia with a linear ulceration in the gastric cardia possibly representing a Romie ulcer, no visible vessel, no active bleeding this was biopsied - The duodenum there were multiple ulcerations noted in the duodenal bulb and the descending duodenum most were superficial and clean based one was actively bleeding just distal to the ampulla a small vessel was noted and so a clip was placed and no further bleeding was noted biopsies were taken from the ulcer sites - Pt underwent repeat EGD (01/08) --> Mild gastritis and two duodenal ulcers with active bleeding s/p clipping Completed studies during hospitalization: Pending at discharge 01/03/18 15:15 Surgical [PTH] Routine Labs on day of discharge: Labs from last 24 hours 01/15/18 04:30 WBC 4.5 RBC 3.36 L Hgb 10.1 L Hct 30.0 L MCV 89.3 MCH 30.0 MCHC 33.6 RDW 18.8 H Plt Count 33 L D MPV 7.8 Prelim Diff (Auto) Slide review pending Neut % (Auto) 94.2 H Lymph % (Auto) 2.2 L [place] % (Auto) 3.5 Eos % (Auto) 0.0 Baso % (Auto) 0.1 Neut # (Auto) 4.2 Lymph # (Auto) 0.1 L [place] # (Auto) 0.2 Eos # (Auto) 0.0 Baso # (Auto) 0.0 WBC Differential Manual diff final Seg Neuts % (Manual) 91 H Band Neuts % (Manual) 5 Lymphocytes % (Manual) 2 L Monocytes % (Manual) 2 Abs Neuts (Manual) 4.3 Differential Comment . Platelet Estimate Low L Platelet Morphology Normal - Impressions ITS Impressions Chest X-Ray 01/09/18 00:00 CONCLUSION: New opacity left lower lobe suspicious for inflammatory process. Chest CT 01/10/18 00:00 CONCLUSION: 1. Interval development of bilateral pleural effusions, left greater than right. 2. Interval development of patchy areas of groundglass opacity in the left mid and lateral lung. 3. Stable appearance to the left axillary mass. Abdomen X-Ray 01/14/18 06:00 CONCLUSION: Probable resolving ileus. Much less distention of the stomach in the interim. GI Bleed Scan Nuclear Medicine 01/14/18 10:54 CONCLUSION: No active GI bleeding is identified. <Zaheer Murcia - Last Filed: 01/22/18 20:08> Date of admission: 01/02/18 17:59 Primary care physician: Ryley Rodgers MD DS: Diagnosis - Discharge Diagnosis (1) Metastatic squamous cell carcinoma Status: Acute (2) GIB (gastrointestinal bleeding) Status: Acute (3) Gastric ulceration Status: Acute (4) Duodenal ulceration Status: Acute DS: Summary Hospital Course: Patient examined. Assessment and plan formulated with Melody Salguero PA-C. I agree with the above. - Time Spent with Patient Total time spent providing and/or coordinating discharge services: Results Completed studies during hospitalization: Pending at discharge 01/03/18 15:15 Surgical [PTH] Routine - Impressions ITS Impressions Chest X-Ray 01/09/18 00:00 CONCLUSION: New opacity left lower lobe suspicious for inflammatory process. Chest CT 01/10/18 00:00 CONCLUSION: 1. Interval development of bilateral pleural effusions, left greater than right. 2. Interval development of patchy areas of groundglass opacity in the left mid and lateral lung. 3. Stable appearance to the left axillary mass. Abdomen X-Ray 01/14/18 06:00 CONCLUSION: Probable resolving ileus. Much less distention of the stomach in the interim. GI Bleed Scan Nuclear Medicine 01/14/18 10:54 CONCLUSION: No active GI bleeding is identified. Discharge Plan - Discharge Order Discharge Orders: Discharge Order (Routine); Ordered 01/15/18 Ordered By: Melody Salguero - Discharge Details Anticipated Discharge Date: 01/15/18 - Physicians Team Primary Care Provider: Ryley Rodgers Attending Provider: Zaheer Murcia Other Providers: Carlos Wilder MD ; Solo Mckeon MD ; Milan Bazzi MD ; Aubrey Mishra MD ; Osvaldo Silverman DO ; Kartik Cole ; Tony Manning MD
[2018-01-15 13:28] VITALS: BP 138/80; TEMP 97.6
--- NOTE | 2018-01-15 15:17 | P.PNGI ---
Subjective Interval history: No nausea vomiting or abdominal pain <KristynShira M - Last Filed: 01/15/18 15:14> Physical Exam Vital signs: Vital Signs 01/14/18 15:33 01/14/18 16:49 01/14/18 16:50 Temperature 98.3 F Pulse Rate 91 H 94 H Respiratory Rate 18 20 18 Blood Pressure 114/68 Pulse Oximetry 98 98 01/14/18 17:46 01/14/18 19:03 01/14/18 20:00 Temperature Pulse Rate 95 H 95 H 96 H Respiratory Rate 18 Blood Pressure Pulse Oximetry 01/14/18 21:25 01/14/18 22:00 01/15/18 00:16 Temperature 98.0 F 97.9 F Pulse Rate 97 H 93 H Respiratory Rate 19 16 19 Blood Pressure 133/73 140/85 Pulse Oximetry 97 92 L 01/15/18 00:22 01/15/18 01:27 01/15/18 04:00 Temperature Pulse Rate 91 H 100 H 97 H Respiratory Rate 22 Blood Pressure Pulse Oximetry 01/15/18 04:14 01/15/18 05:56 01/15/18 07:00 Temperature 97.7 F Pulse Rate 98 H 82 92 H Respiratory Rate 19 20 Blood Pressure 143/76 H Pulse Oximetry 97 01/15/18 07:58 01/15/18 08:00 01/15/18 09:26 Temperature 98.6 F Pulse Rate 87 92 H Respiratory Rate 18 18 18 Blood Pressure 123/72 Pulse Oximetry 97 98 01/15/18 11:00 01/15/18 12:00 01/15/18 13:28 Temperature 97.6 F Pulse Rate 106 H 87 Respiratory Rate 18 18 Blood Pressure 138/80 Pulse Oximetry 98 Intake & Output 01/14/18 01/15/18 01/15/18 18:59 06:59 18:59 Intake Total 500 / 500 720 / 720 284 / 284 Output Total 900 / 900 Balance 500 / 500 -180 / -180 284 / 284 Intake: Oral 500 / 500 720 / 720 Intake (Blood Product) Amt 0 / 0 284 / 284 Plt Pheresis B Leukoreduced 0 / 0 284 / 284 Unit [id number] Rbc As-3 Leukoreduced Unit 0 / 0 [id number] Output: Urine 900 / 900 Other: Date of Last Bowel Movement 01/14/18 01/15/18 01/15/18 # Bowel Movements 1 1 # Incontinent Bowel Movements 1 - Constitutional no acute distress, obese - Routine HEENT Exam Head: Present: normocephalic ENT: Present: mucous membranes dry - Routine Cardiovascular Exam Present: S1, S2 - Routine Abdominal Exam Present: soft (Round, soft bowel sounds) <Shira Simons - Last Filed: 01/15/18 15:14> Vital signs: Vital Signs 01/14/18 16:49 01/14/18 16:50 01/14/18 17:46 Temperature Pulse Rate 94 H 95 H Respiratory Rate 20 18 Blood Pressure Pulse Oximetry 98 01/14/18 19:03 01/14/18 20:00 01/14/18 21:25 Temperature 98.0 F Pulse Rate 95 H 96 H 97 H Respiratory Rate 18 19 Blood Pressure 133/73 Pulse Oximetry 97 01/14/18 22:00 01/15/18 00:16 01/15/18 00:22 Temperature 97.9 F Pulse Rate 93 H 91 H Respiratory Rate 16 19 22 Blood Pressure 140/85 Pulse Oximetry 92 L 01/15/18 01:27 01/15/18 04:00 01/15/18 04:14 Temperature 97.7 F Pulse Rate 100 H 97 H 98 H Respiratory Rate 19 Blood Pressure 143/76 H Pulse Oximetry 97 01/15/18 05:56 01/15/18 07:00 01/15/18 07:58 Temperature Pulse Rate 82 92 H 87 Respiratory Rate 20 18 Blood Pressure Pulse Oximetry 97 01/15/18 08:00 01/15/18 09:26 01/15/18 11:00 Temperature 98.6 F Pulse Rate 92 H 106 H Respiratory Rate 18 18 Blood Pressure 123/72 Pulse Oximetry 98 01/15/18 12:00 01/15/18 13:28 Temperature 97.6 F Pulse Rate 87 Respiratory Rate 18 18 Blood Pressure 138/80 Pulse Oximetry 98 Intake & Output 01/14/18 01/15/18 01/15/18 18:59 06:59 18:59 Intake Total 500 / 500 720 / 720 284 / 284 Output Total 900 / 900 Balance 500 / 500 -180 / -180 284 / 284 Intake: Oral 500 / 500 720 / 720 Intake (Blood Product) Amt 0 / 0 284 / 284 Plt Pheresis B Leukoreduced 0 / 0 284 / 284 Unit [id number] Rbc As-3 Leukoreduced Unit 0 / 0 [id number] Output: Urine 900 / 900 Other: Date of Last Bowel Movement 01/14/18 01/15/18 01/15/18 # Bowel Movements 1 1 # Incontinent Bowel Movements 1 <Tony Manning - Last Filed: 01/15/18 16:00> Results - Labs CBC & Chem 7: 01/15/18 04:30 01/13/18 05:10 Laboratory Results - last 24 hr 01/15/18 04:30 WBC 4.5 RBC 3.36 L Hgb 10.1 L Hct 30.0 L MCV 89.3 MCH 30.0 MCHC 33.6 RDW 18.8 H Plt Count 33 L D MPV 7.8 Prelim Diff (Auto) Slide review pending Neut % (Auto) 94.2 H Lymph % (Auto) 2.2 L [place] % (Auto) 3.5 Eos % (Auto) 0.0 Baso % (Auto) 0.1 Neut # (Auto) 4.2 Lymph # (Auto) 0.1 L [place] # (Auto) 0.2 Eos # (Auto) 0.0 Baso # (Auto) 0.0 WBC Differential Manual diff final Seg Neuts % (Manual) 91 H Band Neuts % (Manual) 5 Lymphocytes % (Manual) 2 L Monocytes % (Manual) 2 Abs Neuts (Manual) 4.3 Differential Comment . Platelet Estimate Low L Platelet Morphology Normal - Procedures - Pt underwent evaluation with EGD (01/03/18) - The esophagus this appeared to be unremarkable and within normal limits - Small hiatal hernia with a linear ulceration in the gastric cardia possibly representing a Romie ulcer, no visible vessel, no active bleeding this was biopsied - The duodenum there were multiple ulcerations noted in the duodenal bulb and the descending duodenum most were superficial and clean based one was actively bleeding just distal to the ampulla a small vessel was noted and so a clip was placed and no further bleeding was noted biopsies were taken from the ulcer sites - Pt underwent repeat EGD (01/08) --> Mild gastritis and two duodenal ulcers with active bleeding s/p clipping <Shira Simons - Last Filed: 01/15/18 15:14> - Labs CBC & Chem 7: 01/15/18 04:30 01/13/18 05:10 Laboratory Results - last 24 hr 01/15/18 04:30 WBC 4.5 RBC 3.36 L Hgb 10.1 L Hct 30.0 L MCV 89.3 MCH 30.0 MCHC 33.6 RDW 18.8 H Plt Count 33 L D MPV 7.8 Prelim Diff (Auto) Slide review pending Neut % (Auto) 94.2 H Lymph % (Auto) 2.2 L [place] % (Auto) 3.5 Eos % (Auto) 0.0 Baso % (Auto) 0.1 Neut # (Auto) 4.2 Lymph # (Auto) 0.1 L [place] # (Auto) 0.2 Eos # (Auto) 0.0 Baso # (Auto) 0.0 WBC Differential Manual diff final Seg Neuts % (Manual) 91 H Band Neuts % (Manual) 5 Lymphocytes % (Manual) 2 L Monocytes % (Manual) 2 Abs Neuts (Manual) 4.3 Differential Comment . Platelet Estimate Low L Platelet Morphology Normal <Tony Manning - Last Filed: 01/15/18 16:00> Assessment and Plan - Plan Anemia with reports of GIB S/P EGD x 2 since admission EGD (01/02) Hiatal hernia. Gastric ulcer possibly a Romie ulcer. Duodenal ulcers one of which was actively bleeding S/P clip. EGD (01/08) Mild gastritis. Duodenal ulcers with active bleeding S/P clips. Reconsulted 01/14 for continued anemia and stool retested which is Hemoccult positive. Discussed with RN who states pt has had no obvious BRB in his stools or melena. Pt denies nausea , vomiting, abdominal pain. Hgb has been low but seems to have been stable since last EGD. 01/15/2018 patient is resting in the bed denies any acute symptoms of nausea vomiting or abdominal pain. Patient was seen and reconsulted for anemia. Bleeding scan was negative. Currently patient symptoms appear to be controlled without nausea vomiting or abdominal pain according to the patient and record patient may be discharged today. Encourage patient to monitor for any dark melena stools or any obvious bleeding. Supportive care given. current hemoglobin 10.1 Patient was seen per myself and Dr. Manning, note was written on his behalf <Shira Simons - Last Filed: 01/15/18 15:14> - Plan Seen and examined with DIRECTOR TRADE< no bleeding. Bleeding scan -ve. Diet as tolerated. GI will sign off. Than The exam, history, and the medical decision-making described in the above note were completed with the assistance of the mid-level provider. I reviewed and agree with the findings presented. I attest that I had a [id number] encounter with the patient on the same day, and personally performed and documented my assessment and findings in the medical record.k [email or web address] <Tony Manning - Last Filed: 01/15/18 16:00>
[2018-01-15 16:05] VITALS: PULSE 94; RESP 20
== END 2018-01-15 16:45 ==
LOC: NEPC 15:50 → NEDA 17:59 → HIMC 20:05 → N07 01-04 12:27 → HCIN 01-09 11:34
PROVIDERS: ADMIT Hospitalist; ATTEND Hospitalist
PROC: PANENDO (2018-01-03 11:33)

== ENCOUNTER 2018-01-17 14:28 | Inpatient (IN) ==
[2018-01-17] MEDS ORDERED: Morphine Inj 4 MG/ML Vial IV.PUSH ONE (14:41)
[2018-01-17] MEDS ORDERED: Sod Chloride 0.9% Inj 1,000 ML IV.SIG ONE ×2 (14:53→15:28)
--- NOTE | 2018-01-17 15:17 | ED ---
HPI General Chief Complaint: Pain: Chronic Stated Complaint: Arm Complaint Time Seen by Provider: 01/17/18 14:41 Source: patient Mode of arrival: EMS Limitations: no limitations History of Present Illness 72-year-old male with PMH of stage IV metastatic SCC, COPD, current smoker, oxygen dependent, A. fib with RVR, not currently on anticoagulants 2/2 recent GI bleed (duodenal ulcer) presents the ED via EMS from [facility] for evaluation of 24-hour history of shortness of breath. Patient endorses associated stabbing pain below the left shoulder blade. He endorses accompanying palpitations. He complains of 12/10 pain in the left arm. Sharp, no alleviating or exacerbating factors reported. He denies recent history of headache, dizziness, chest pain, fever, chills, diaphoresis, nausea, vomiting. He takes 5 mg [place] at the [facility], last dose "a few hours ago." He states that he does not have a DNR. He states that he "wants everything done if something happens to me." He is followed by Dr. Rodgers and Dr. Long. Related Data Home Medications Medication Instructions Recorded Confirmed albuterol sulfate [Ventolin HFA] 2 puff INHALATION Q4-6H PRN 10/29/17 01/17/18 atorvastatin 20 mg PO HS 10/29/17 01/17/18 Previous Rx's Medication Instructions Recorded calcium carbonate 500 mg CHEW Q2H PRN tab 01/13/18 diltiazem HCl [Cardizem CD] 360 mg PO DAILY cap 01/13/18 docusate sodium [DOK] 100 mg PO BID cap 01/13/18 ipratropium-albuterol 1 amp NEB Q2HR NEB PRN ml 01/13/18 lactulose 30 ml PO DAILY PRN ml 01/13/18 magnesium hydroxide [Milk of 30 ml PO Q12H PRN ml 01/13/18 Magnesia] pantoprazole [Protonix] 40 mg PO BID 30 Days each 01/13/18 prednisone See Label Instructions .ROUTE 01/13/18 .COMPLEX #11 tab hydrocodone-acetaminophen 1 tab PO Q4H PRN #60 tab 01/15/18 lorazepam 1 mg PO BID #30 tab 01/15/18 Allergies Allergy/AdvReac Type Severity Reaction Status Date / Time No Known Allergies Allergy Verified 01/17/18 14:33 Review of Systems ROS: all other systems reviewed are negative [facility] Medical History Medical History Alcohol dependence (Acute) Anxiety (Acute) Barretts esophagus (Acute) Barretts esophagus (Acute) COPD (chronic obstructive pulmonary disease) (Acute) FHx: radiation therapy (Acute) GERD (gastroesophageal reflux disease) (Acute) GERD (gastroesophageal reflux disease) (Acute) HTN (hypertension) (Acute) High cholesterol (Acute) History of blood transfusion (Acute) History of chemotherapy (Acute) Hyperlipidemia (Acute) Hypertension (Acute) Hypothyroidism (Acute) Lymphedema of left upper extremity (Acute) Peripheral arterial disease (Acute) Skin cancer (Acute) Squamous cell carcinoma of unknown origin (Acute) Squamous cell carcinoma of upper extremity (Acute) Surgical History Surgical History Port-A-Cath in place (Acute) Abnormal colonoscopy (Acute) H/O angioplasty (Acute) History of hip replacement (Acute) Hx of hernia repair (Acute) Hx of shoulder surgery (Acute) Status post bilateral total hip replacement (Acute) Family History Family History Mother Natural with unknown cause Social History Social History Substance History: No History of Abuse Second Hand Smoke Exposure: Yes Smoking Status: Current every day smoker Tobacco Type: Cigarettes How Often Do You Have a Drink Containing Alcohol: Monthly or less Recent Travel in [facility] within the Last 8 Weeks: No Recent Out of Country Travel within the Last 8 Weeks: No Immunization History Tetanus Immunization: <5 Years Hx Influenza Vaccine This Season: No Exam Narrative Exam Narrative: GENERAL: Well-nourished, well-developed, chronically ill appearing white male, wearing a nasal cannula, in no acute distress. SKIN: Focused skin assessment warm/dry. Lesions consistent with SCC of the left lateral chest wall, back, left arm. HEAD: Atraumatic. Normocephalic. EYES: Pupils equal and round. No scleral icterus. No injection or drainage. ENT: No nasal bleeding or discharge. Mucous membranes pink and moist. NECK: Trachea midline. No JVD. CARDIOVASCULAR: Regular rate and rhythm. No murmur appreciated. RESPIRATORY: + Accessory muscle use. Clear to auscultation. Breath sounds equal bilaterally. GASTROINTESTINAL: Abdomen soft, non-tender, nondistended. Hepatic and splenic margins not palpable. MUSCULOSKELETAL: No obvious deformities. No clubbing. No cyanosis. Trace edema bilateral lower extremities. NEUROLOGICAL: Awake and alert. No obvious cranial nerve deficits. Motor grossly within normal limits. Normal speech. PSYCHIATRIC: Appropriate mood and affect; insight and judgment normal. Course Initial Documented Vital Signs Temperature 97.6 F 01/17/18 14:35 Pulse Rate 88 01/17/18 14:35 Respiratory Rate 16 01/17/18 14:35 Last Documented Vital Signs Temperature 97.6 F 01/17/18 14:35 Pulse Rate 74 01/17/18 17:09 Respiratory Rate 24 01/17/18 17:09 Blood Pressure 110/60 01/17/18 17:09 Pulse Oximetry 4 L 01/17/18 17:09 Medical Decision Making ROCHELLE Attestation ROCHELLE supervised visit: Yes Attestation: I, Dr. Morse have reviewed the advance practice practitioner's documentation and am in agreement, met with the patient face to face, made the diagnosis, and the medical decision making was done by me. *My assessment and Findings: Patient seen and examined by me in addition to Prabha Middleton PA-C, this is a patient 72 years old with history of metastatic cancer, he wishes for continued aggressive therapy and "wants everything done". Patient recently came off his blood thinners, he states he had a blood clot in his chest, recent admission for GI bleeding had an endoscopy which he states was normal. He is anemic to the point requiring transfusion today with a hemoglobin of 5.9. He is short of breath, initially hypotensive, fluid responsive and received a liter of normal saline prior to my examination blood pressure is normalized. He states he is having pain left side of his chest which is normal for him as is where his lymph node is enlarged. A CT of the chest to rule out PE is ordered. Blood transfusion also ordered as well as additional liter of fluid. I think at this point his blood pressure is high enough that he can tolerate small doses of opiates. Obviously will need admission to the hospital. MDM Narrative Medical decision making narrative: 72-year-old male with PMH of metastatic SCC, COPD, hypertension, recent admission for GI bleed presents [facility] the ED from SN[facility] for evaluation of left-sided pain and shortness of breath. Patient hypotensive on presentation. O2 sats in the 90s on 4 L by nasal cannula. On physical exam he has lesions consistent with SCC on the left lateral and posterior chest wall and left arm. Trace edema in the lower extremities. Lung sounds clear and equal bilaterally. Patient was administered 2 L normal saline, BP improved on recheck. EKG without acute changes. Hemoglobin 5.9. 3 units PRBC ordered pending type and screen. CTA without evidence of PE. Per chart review the patient had a hospice consult but has not enrolled and does not have a signed DNR. Today he states that he "wants everything done." I spoke to Dr. Bazzi who agrees to accept the patient to the medicine service. Please see medicine notes for disposition. Medical Screen Exam Complete: Yes Emergency Medical Condition: Yes Medical Records Medical records reviewed: Yes I reviewed the patient's medical records. Recent admission for GI bleed requiring transfusions. Diagnosed with a duodenal ulcer status post gastroscopy. Plans for palliative chemo and radiation. He had a hospice consult but does not have a signed DNR. Patient discharged approximately 36 hours ago. Lab Data Result diagrams: 01/17/18 14:50 01/17/18 14:50 Lab Results 01/17/18 01/17/18 01/17/18 Range/Units 14:50 14:50 14:50 WBC 6.2 (4.0-11.0) th/mm3 RBC 1.95 L (4.50-5.90) mil/mm3 Hgb 5.9 L* (13.0-17.0) gm/dL Hct 17.6 L* (39.0-51.0) % MCV 90.2 (80.0-100.0) fL MCH 30.5 (27.0-34.0) pg MCHC 33.8 (32.0-36.0) % RDW 20.0 H (11.6-17.2) % Plt Count 28 L (150-450) th/mm3 MPV 8.3 (7.0-11.0) fL Prelim Diff (Auto) Slide review pending Neut % (Auto) 88.6 H (16.0-70.0) % Lymph % (Auto) 4.0 L (9.0-44.0) % [place] % (Auto) 7.1 (0.0-8.0) % Eos % (Auto) 0.2 (0.0-4.0) % Baso % (Auto) 0.1 (0.0-2.0) % Neut # (Auto) 5.5 (1.8-7.7) th/mm3 Lymph # (Auto) 0.2 L (1.0-4.8) th/mm3 [place] # (Auto) 0.4 (0.0-0.9) th/mm3 Eos # (Auto) 0.0 (0.0-0.4) th/mm3 Baso # (Auto) 0.0 (0.0-0.2) th/mm3 WBC Differential . Diff Scan Auto diff confirmed Differential Comment . Platelet Estimate Low L (Normal) Platelet Morphology Normal (Normal) Sodium 139 (136-145) meq/L Potassium 5.0 (3.5-5.1) meq/L Chloride 102 (98-107) meq/L Carbon Dioxide 26.4 (21.0-32.0) meq/L Anion Gap 11 (5-15) meq/L BUN 43 H (7-18) mg/dL Creatinine 0.80 (0.60-1.30) mg/dL Estimated GFR Greater than 89 (>89) mL/min Random Glucose 132 H (74-106) mg/dL Lactic Acid (0.4-2.0) mmol/L Calcium 6.6 L* (8.5-10.1) mg/dL Prot Corrected Calcium 8.9 (8.5-10.1) mg/dL Magnesium 1.6 (1.5-2.5) mg/dL Total Bilirubin 0.2 (0.2-1.0) mg/dL AST 18 (15-37) U/L ALT 8 L (12-78) U/L Alkaline Phosphatase 32 L (45-117) U/L Troponin I 0.16 H (0.02-0.05) ng/mL B-Natriuretic Peptide 77 (0-100) pg/mL Total Protein 3.1 L D (6.4-8.2) g/dL Albumin 1.4 L (3.4-5.0) g/dL Blood Type Antibody Screen MTS Gel Crossmatch Bld Prod Order Comment 01/17/18 01/17/18 01/17/18 Range/Units 14:50 15:00 15:32 WBC (4.0-11.0) th/mm3 RBC (4.50-5.90) mil/mm3 Hgb (13.0-17.0) gm/dL Hct (39.0-51.0) % MCV (80.0-100.0) fL MCH (27.0-34.0) pg MCHC (32.0-36.0) % RDW (11.6-17.2) % Plt Count (150-450) th/mm3 MPV (7.0-11.0) fL Prelim Diff (Auto) Neut % (Auto) (16.0-70.0) % Lymph % (Auto) (9.0-44.0) % [place] % (Auto) (0.0-8.0) % Eos % (Auto) (0.0-4.0) % Baso % (Auto) (0.0-2.0) % Neut # (Auto) (1.8-7.7) th/mm3 Lymph # (Auto) (1.0-4.8) th/mm3 [place] # (Auto) (0.0-0.9) th/mm3 Eos # (Auto) (0.0-0.4) th/mm3 Baso # (Auto) (0.0-0.2) th/mm3 WBC Differential Diff Scan Differential Comment Platelet Estimate (Normal) Platelet Morphology (Normal) Sodium (136-145) meq/L Potassium (3.5-5.1) meq/L Chloride (98-107) meq/L Carbon Dioxide (21.0-32.0) meq/L Anion Gap (5-15) meq/L BUN (7-18) mg/dL Creatinine (0.60-1.30) mg/dL Estimated GFR (>89) mL/min Random Glucose (74-106) mg/dL Lactic Acid 3.2 H (0.4-2.0) mmol/L Calcium (8.5-10.1) mg/dL Prot Corrected Calcium (8.5-10.1) mg/dL Magnesium (1.5-2.5) mg/dL Total Bilirubin (0.2-1.0) mg/dL AST (15-37) U/L ALT (12-78) U/L Alkaline Phosphatase (45-117) U/L Troponin I (0.02-0.05) ng/mL B-Natriuretic Peptide (0-100) pg/mL Total Protein (6.4-8.2) g/dL Albumin (3.4-5.0) g/dL Blood Type A Negative Antibody Screen Negative MTS Gel Crossmatch See Detail Bld Prod Order Comment 01/17/18 Range/Units 17:53 WBC (4.0-11.0) th/mm3 RBC (4.50-5.90) mil/mm3 Hgb (13.0-17.0) gm/dL Hct (39.0-51.0) % MCV (80.0-100.0) fL MCH (27.0-34.0) pg MCHC (32.0-36.0) % RDW (11.6-17.2) % Plt Count (150-450) th/mm3 MPV (7.0-11.0) fL Prelim Diff (Auto) Neut % (Auto) (16.0-70.0) % Lymph % (Auto) (9.0-44.0) % [place] % (Auto) (0.0-8.0) % Eos % (Auto) (0.0-4.0) % Baso % (Auto) (0.0-2.0) % Neut # (Auto) (1.8-7.7) th/mm3 Lymph # (Auto) (1.0-4.8) th/mm3 [place] # (Auto) (0.0-0.9) th/mm3 Eos # (Auto) (0.0-0.4) th/mm3 Baso # (Auto) (0.0-0.2) th/mm3 WBC Differential Diff Scan Differential Comment Platelet Estimate (Normal) Platelet Morphology (Normal) Sodium (136-145) meq/L Potassium (3.5-5.1) meq/L Chloride (98-107) meq/L Carbon Dioxide (21.0-32.0) meq/L Anion Gap (5-15) meq/L BUN (7-18) mg/dL Creatinine (0.60-1.30) mg/dL Estimated GFR (>89) mL/min Random Glucose (74-106) mg/dL Lactic Acid (0.4-2.0) mmol/L Calcium (8.5-10.1) mg/dL Prot Corrected Calcium (8.5-10.1) mg/dL Magnesium (1.5-2.5) mg/dL Total Bilirubin (0.2-1.0) mg/dL AST (15-37) U/L ALT (12-78) U/L Alkaline Phosphatase (45-117) U/L Troponin I (0.02-0.05) ng/mL B-Natriuretic Peptide (0-100) pg/mL Total Protein (6.4-8.2) g/dL Albumin (3.4-5.0) g/dL Blood Type Antibody Screen MTS Gel Crossmatch See Detail Bld Prod Order Comment Cancelled Imaging Data Radiologist's impression: Chest X-Ray 01/17/18 14:41 CONCLUSION: Cardiomegaly with moderate elevation of the right hemidiaphragm. Possible trace pleural effusion on the left. Chest CTA 01/17/18 14:42 CONCLUSION: 1. No evidence of pulmonary embolism. 2. Moderate-sized left pleural effusion and tiny right pleural effusion. 3. Bibasilar atelectasis and/or infiltrates. 4. Left axillary mass is stable. 5. Diffuse edema is noted throughout the left chest wall. 6. At least 2 ribs on the left (first and fourth) are sclerotic raising the possibility of metastatic disease. 7. Coronary artery calcifications. 8. Degenerative changes throughout the thoracic spine. Discharge Plan Discharge Disposition Patient Disposition: 30 Still Patient Physicians Team ED Provider: James Morse ED Midlevel Provider: Prabha Middleton Primary Care Provider: Ryley Rodgers Attending Provider: Milan Bazzi Other Providers: Carlos Wilder Discharge Interventions Interventions: Vital Signs Last Done: 01/17/18 17:09 Status ED Status: Admitted Patient
[2018-01-17 15:19] LABS: Baso % (Auto) 0.1 % (0.0-2.0); Eos % (Auto) 0.2 % (0.0-4.0); Lymph # (Auto) 0.2 th/mm3 (1.0-4.8); Mean Corpuscular HGB Conc 33.8 % (32.0-36.0); Mean Corpuscular Hemoglobin 30.5 pg (27.0-34.0); Mean Corpuscular Volume 90.2 fL (80.0-100.0); Mean Platelet Volume 8.3 fL (7.0-11.0); Mono # (Auto) 0.4 th/mm3 (0.0-0.9); Mono % (Auto) 7.1 % (0.0-8.0); Neut # (Auto) 5.5 th/mm3 (1.8-7.7); Neut % (Auto) 88.6 % (16.0-70.0); Platelet Count 28 th/mm3 (150-450); Red Blood Count 1.95 mil/mm3 (4.50-5.90); White Blood Count 6.2 th/mm3 (4.0-11.0)
--- NOTE | 2018-01-17 15:22 | XR ---
EXAM DATE: 01/17/2018 2:41 PM EDT AGE/SEX: 72 years / Male INDICATIONS: Shortness of breath. CLINICAL DATA: This is the patient's initial encounter. Patient reports that signs and symptoms have been present for 2 days and indicates a pain score of 0/10. MEDICAL/SURGICAL HISTORY: Hypertension. Lymphoma. Gastroesophageal reflux disease. Chronic obst ructive pulmonary disease. . Angioplasty. Infusaport. COMPARISON: [facility] [place], CHEST 1V SINGLE AP, 01/09/2018. . FINDINGS: [id number] in good position. Minimal elevation of the right hemidiaphragm. Minimal parental change s left base with possible trace pleural effusion. There is a loop of [id number] catheter in the jugular vein. The heart is enlarged. Pulmonary vascularity is normal. CONCLUSION: Cardiomegaly with moderate elevation of the right hemidiaphragm. Possible trace pleural effusion on t he left. Electronically signed by: Renzo Diane MD 01/17/2018 3:21 PM EDT
[2018-01-17 15:23] LABS: Hemoglobin 5.9 gm/dL (13.0-17.0)
[2018-01-17 15:24] LABS: Hematocrit 17.6 % (39.0-51.0)
[2018-01-17 15:45] LABS: Alanine Aminotransferase 8 U/L (12-78); Albumin 1.4 g/dL (3.4-5.0); Alkaline Phosphatase 32 U/L (45-117); Anion Gap 11 meq/L (5-15); Aspartate Aminotransferase 18 U/L (15-37); Blood Urea Nitrogen 43 mg/dL (7-18); Calcium 6.6 mg/dL (8.5-10.1); Carbon Dioxide 26.4 meq/L (21.0-32.0); Chloride 102 meq/L (98-107); Glomerular Filtration Rate Greater Than 89 mL/min (>89); Glucose,Random 132 mg/dL (74-106); Magnesium 1.6 mg/dL (1.5-2.5); Sodium 139 meq/L (136-145); Total Protein 3.1 g/dL (6.4-8.2); Troponin I 0.16 ng/mL (0.02-0.05)
[2018-01-17 15:56] LABS: Platelet Morphology Normal (Normal)
--- NOTE | 2018-01-17 17:48 | P.HPIM ---
History of Present Illness Primary Care Physician: Ryley Rodgers MD History of Present Illness: Pt is 72 yo with stage 4 metastatic SCC felt to be lung primary. Had been undergoing chemoradiation. Pt has had multiple admissions recently for etoh abuse, acute gib, and pain and ulceration/cellulitis of left arm. Pt was just discharged this past weekend to snf after being admitted to ICU for acute GIB and hypotension. That admission was from 01/02 until 01/15. Pt underwent EGD on 01/03 )- The esophagus this appeared to be unremarkable and within normal limits - Small hiatal hernia with a linear ulceration in the gastric cardia possibly representing a Romie ulcer, no visible vessel, no active bleeding this was biopsied - The duodenum there were multiple ulcerations noted in the duodenal bulb and the descending duodenum most were superficial and clean based one was actively bleeding just distal to the ampulla a small vessel was noted and so a clip was placed and no further bleeding was noted biopsies were taken from the ulcer sites - Pt underwent repeat EGD (01/08) --> Mild gastritis and two duodenal ulcers with active bleeding s/p clipping. Pt required blood transfusions of 12 units from 01/02-01/15 admission. He underwent bleeding scan on 01/14 negative for bleeding and so was sent to snf. During the last hospitalization he was also treated for afib with rvr and copd exacerbations. Now pt presents back with sob and left arm pain. Hgb noted to be 5 again. ED ordered 3 units blood. PMH: stage 4 metastatic lung SCC to left arm/chest and abdomen wall gastric and duodenal ulcers with gib and acute blood loss anemia as above etoh abuse copd afib. off anticoagulation due to bleeding anxiety hx NSVT SH etoh abuse 1ppd tob x 55yrs FH: [place] - Diagnosis (1) Metastatic squamous cell carcinoma (2) GIB (gastrointestinal bleeding) (3) Gastric ulceration (4) Duodenal ulceration (5) COPD (chronic obstructive pulmonary disease) (6) Afib [facility] - History History Provided By: Patient, Radar Operator / EMT - Medical History Medical History: Medical History (Last Reviewed 01/17/18 @ 18:43 by CHRIS Neal) Alcohol dependence Anxiety Barretts esophagus Barretts esophagus COPD (chronic obstructive pulmonary disease) FHx: radiation therapy GERD (gastroesophageal reflux disease) GERD (gastroesophageal reflux disease) HTN (hypertension) High cholesterol History of blood transfusion History of chemotherapy Hyperlipidemia Hypertension Hypothyroidism Lymphedema of left upper extremity Peripheral arterial disease Skin cancer 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 - Surgical History Surgical History: Surgical History (Last Reviewed 01/17/18 @ 18:43 by CHRIS Neal) Port-A-Cath in place (Acute) Abnormal colonoscopy H/O angioplasty History of hip replacement Hx of hernia repair Hx of shoulder surgery Status post bilateral total hip replacement - Family History Family History: Family History (Last Reviewed 01/17/18 @ 18:43 by CHRIS Neal) Mother Natural with unknown cause - Tobacco History Second Hand Smoke Exposure: Yes Tobacco Use In Past 30 Days: Yes Smoking Status: Current every day smoker Tobacco Type: Cigarettes - Alcohol History How Often Do You Have a Drink Containing Alcohol: Monthly or less - Substance Use History Substance History: No History of Abuse - Travel History Recent Travel in the [facility] Within the Last 8 Weeks: No Recent Travel Out of the Country Within the Last 8 Weeks: No - Immunization History Tetanus Immunization: <5 Years Hx Influenza Vaccine This Season: No Medications and Allergies Active Medications: Active Medications Acetaminophen (Tylenol) 650 mg PO Q4H PRN PRN Reason: Temp > 100.4 Al Hydroxide/Mg Hydroxide (Milk Of Magnesia Liq) 30 ml PO Q12H PRN PRN Reason: Mild Constipation Bisacodyl (Dulcolax Supp) 10 mg RECTAL DAILY PRN PRN Reason: SEVERE CONSITIPATION Sodium Chloride (Ns Inj) 1,000 mls @ 84 mls/hr IV.CONT .[id number] KATIE Lactulose (Lactulose Liq) 30 ml PO DAILY PRN PRN Reason: SEVERE CONSITIPATION Ondansetron HCl (Zofran Inj) 4 mg IV.PUSH Q6H PRN PRN Reason: NAUSEA OR VOMITING Senna/Docusate Sodium (Merced-Colace) 1 tab PO BID KATIE Sennosides (Senokot) 17.2 mg PO Q12H PRN PRN Reason: Moderate Constipation Allergies Allergy/AdvReac Type Severity Reaction Status Date / Time No Known Allergies Allergy Verified 01/17/18 14:33 Home Medications Medication Instructions Recorded Confirmed Type albuterol sulfate [Ventolin HFA] 2 puff INHALATION Q4-6H PRN 10/29/17 01/17/18 History atorvastatin 20 mg PO HS 10/29/17 01/17/18 History Exam Vital signs: Vital Signs 01/17/18 14:35 01/17/18 14:40 01/17/18 15:14 Temperature 97.6 F Pulse Rate 88 87 Respiratory Rate 16 27 H Blood Pressure 52/28 L Pulse Oximetry 97 100 01/17/18 15:40 01/17/18 16:13 01/17/18 17:09 Temperature Pulse Rate 82 70 74 Respiratory Rate 28 H 24 24 Blood Pressure 122/90 95/60 L 110/60 Pulse Oximetry 100 95 4 L Intake & Output 01/16/18 01/17/18 01/17/18 18:59 06:59 18:59 Intake Total 1999 Balance 1999 Weight 93.894 kg Intake: IV 1999 NS Inj 1,000 ML @ Wide Open IV. 1999 SIG BOLUS ONE Rx#:[id number] oriented heart reg lung course bs abd s/nt ext left arm lymphedema/nodular arm changes from mets. mid arm ulceration/foul odor no drainage nodular left chest/abdomen wall from mets. Results - Labs CBC & Chem 7: 01/17/18 14:50 01/17/18 14:50 Labs: Short CBC 01/17/18 Range/Units 14:50 WBC 6.2 (4.0-11.0) th/mm3 Hgb 5.9 L* (13.0-17.0) gm/dL Hct 17.6 L* (39.0-51.0) % Plt Count 28 L (150-450) th/mm3 BMP 01/17/18 14:50 Sodium 139 Potassium 5.0 Chloride 102 Carbon Dioxide 26.4 BUN 43 H Creatinine 0.80 Calcium 6.6 L* Cardiac Enzymes 01/17/18 Range/Units 14:50 Troponin I 0.16 H (0.02-0.05) ng/mL Liver Function 01/17/18 Range/Units 14:50 Total Bilirubin 0.2 (0.2-1.0) mg/dL AST 18 (15-37) U/L ALT 8 L (12-78) U/L Alkaline Phosphatase 32 L (45-117) U/L Albumin 1.4 L (3.4-5.0) g/dL - Imaging Impressions Chest X-Ray 01/17/18 14:41 CONCLUSION: Cardiomegaly with moderate elevation of the right hemidiaphragm. Possible trace pleural effusion on the left. Caprini VTE Risk Assessment Caprini VTE Risk Assessment: Moderate/High Risk (score >= 2) Caprini Risk Assessment Model: Point Value = 1 Point Value = 2 Point Value = 3 Point Value = 5 Age 41-60 Minor surgery BMI > 25 kg/m2 Swollen legs Varicose veins or History of unexplained or recurrent spontaneous Oral contraceptives or hormone replacement Sepsis (< 1 month) Serious lung disease, including pneumonia (< 1 month) Abnormal pulmonary function Acute myocardial infarction Congestive heart failure (< 1 month) History of inflammatory bowel disease Medical patient at bed rest Age 61-74 Arthroscopic surgery Major open surgery (> 45 min) Laparoscopic surgery (> 45 min) Malignancy Confined to bed (> 72 hours) Immobilizing plaster cast Central venous access Age >= 75 History of VTE Family history of VTE Factor V Leiden Prothrombin [id number] Lupus anticoagulant Anticardiolipin antibodies Elevated serum homocysteine Heparin-induced thrombocytopenia Other congenital or acquired thrombophilia Stroke (< 1 month) Elective arthroplasty Hip, pelvis, or leg fracture Acute spinal cord injury (< 1 month) Prophylaxis Regimen: Total Risk Factor Score Risk Level Prophylaxis Regimen 0-1 Low Early ambulation 2 Moderate Order ONE of the following: *Sequential Compression Device (SCD) *Heparin 5000 units SQ BID 3-4 Higher Order ONE of the following medications: *Heparin 5000 units SQ TID *Enoxaparin/Lovenox 40 mg SQ daily (WT < 150 kg, CrCl > 30 mL/min) *Enoxaparin/Lovenox 30 mg SQ daily (WT < 150 kg, CrCl > 10-29 mL/min) *Enoxaparin/Lovenox 30 mg SQ BID (WT < 150 kg, CrCl > 30 mL/min) AND/OR *Sequential Compression Device (SCD) 5 or more Highest Order ONE of the following medications: *Heparin 5000 units SQ TID (Preferred with Epidurals) *Enoxaparin/Lovenox 40 mg SQ daily (WT < 150 kg, CrCl > 30 mL/min) *Enoxaparin/Lovenox 30 mg SQ daily (WT < 150 kg, CrCl > 10-29 mL/min) *Enoxaparin/Lovenox 30 mg SQ BID (WT < 150 kg, CrCl > 30 mL/min) AND *Sequential Compression Device (SCD) Assessment and Plan - Assessment (1) Metastatic squamous cell carcinoma Code(s): C79.9 - Secondary malignant neoplasm of unspecified site Status: Acute Plan: Stage IV metastatic SCC undergoing chemo and XRT metastatic disease involving left arm/lymphedema, left chest/abdomen wall chemotherapy and radiation are on hold pt remains aggressive and wants therapy. Acute on chronic anemia. acute blood loss from gib. gastric and duodenal ulcerations etoh abuse Pt is 72 yo with stage 4 metastatic SCC felt to be lung primary. Had been undergoing chemoradiation. Pt has had multiple admissions recently for etoh abuse, acute gib, and pain and ulceration/cellulitis of left arm. Pt was just discharged this past weekend to snf after being admitted to ICU for acute GIB and hypotension. That admission was from 01/02 until 01/15. Pt underwent EGD on 01/03 )- The esophagus this appeared to be unremarkable and within normal limits - Small hiatal hernia with a linear ulceration in the gastric cardia possibly representing a Romie ulcer, no visible vessel, no active bleeding this was biopsied - The duodenum there were multiple ulcerations noted in the duodenal bulb and the descending duodenum most were superficial and clean based one was actively bleeding just distal to the ampulla a small vessel was noted and so a clip was placed and no further bleeding was noted biopsies were taken from the ulcer sites - Pt underwent repeat EGD (01/08) --> Mild gastritis and two duodenal ulcers with active bleeding s/p clipping. Pt required blood transfusions of 12 units from 01/02-01/15 admission. He underwent bleeding scan on 01/14 negative for bleeding and so was sent to snf. During the last hospitalization he was also treated for afib with rvr and copd exacerbations. Now pt presents back with sob and left arm pain. Hgb noted to be 5 again. ED ordered 3 units blood. GI consulted npo ivf 3 units blood ordered iv ppi gtt COPD cont nebs and o2. cont steroid taper AFIB no anticoagulation due to bleeding. (2) GIB (gastrointestinal bleeding) Code(s): K92.2 - Gastrointestinal hemorrhage, unspecified Status: Acute (3) Gastric ulceration Code(s): K25.9 - Gastric ulcer, unspecified as acute or chronic, without hemorrhage or perforation Status: Acute (4) Duodenal ulceration Code(s): K26.9 - Duodenal ulcer, unspecified as acute or chronic, without hemorrhage or perforation Status: Acute (5) COPD (chronic obstructive pulmonary disease) Code(s): J44.9 - Chronic obstructive pulmonary disease, unspecified Status: Chronic (6) Afib Code(s): I48.91 - Unspecified atrial fibrillation Status: Chronic
[2018-01-17] MEDS ORDERED: Acetaminophen 325 MG Tablet PO PRN (18:00)
[2018-01-17] MEDS ORDERED: Bisacodyl 10 MG Supp RECTAL PRN (18:00)
[2018-01-17] MEDS ORDERED: Sodium Chlor 0.9% Inj 250 ML IV.SIG SCH (18:00)
--- NOTE | 2018-01-17 18:04 | CT ---
EXAM DATE: 01/17/2018 4:07 PM EDT AGE/SEX: 72 years / Male INDICATIONS: Short of breath, chest pain. CLINICAL DATA: This is the patient's initial encounter. Patient reports that signs and symptoms have been present for 1 day and indicates a pain score of 10/10. MEDICAL/SURGICAL HISTORY: Chronic obstructive pulmonary disease. Hypertension. squamous cell carci noma, chemo None. RADIATION DOSE: 23.41 CTDI (mGy) COMPARISON: [facility] [place], CT CHEST W/O CONTRAST, 01/10/2018. [facility] [place], CT CHEST W/O CONTRAST, 01/02/2018. . TECHNIQUE: Volumetric scanning was performed using a multi-row detector CT scanner during bolus infu sven of 75 ml Omnipaque 350 (iohexol) nonionic water-soluble contrast as a single exam dose. The silvio a was post processed with a variety of visualization algorithms including full volume maximum intensi ty projection and sliding thin slab reformation. Using automated exposure control and adjustment of t he mA and/or kV according to patient size, radiation dose was kept as low as reasonably achievable to obtain optimal diagnostic quality images. DICOM format image data is available electronically for r eview and comparison. FINDINGS: Pulmonary Arteries: No filling defects are seen in the pulmonary arteries out to the subsegmental ve ssels. The left and right pulmonary arteries are normal in diameter. Lung: Bibasilar atelectasis and/or infiltrates are noted. No pulmonary nodule or mass is noted. Effusion: There is a moderate-sized left pleural effusion and tiny right pleural effusion. Mediastinum: No evidence of mediastinal or hilar adenopathy. Coronary artery calcifications are note d. Other: The axilla is unremarkable. Left axillary mass is stable. Diffuse swelling of the left chest wall is noted. Sclerosis of at least 2 ribs disease (first and fourth) on the left is noted raising p ossibility of metastatic disease. Right internal jugular [id number]-[id number] has its tip in the superior ve na cava. CONCLUSION: 1. No evidence of pulmonary embolism. 2. Moderate-sized left pleural effusion and tiny right pleural effusion. 3. Bibasilar atelectasis and/or infiltrates. 4. Left axillary mass is stable. 5. Diffuse edema is noted throughout the left chest wall. 6. At least 2 ribs on the left (first and fourth) are sclerotic raising the possibility of metastati c disease. 7. Coronary artery calcifications. 8. Degenerative changes throughout the thoracic spine. Electronically signed by: James Aceves MD 01/17/2018 6:02 PM EDT
[2018-01-17] MEDS ORDERED: Pantoprazole Inj 80 MG in Sodium Chlor 0.9% Inj 100 ML IV.CONT SCH (19:00)
[2018-01-17] MEDS: Senna/Docusate Sodium 8.6/50 MG Tablet PO SCH (20:04)
[2018-01-17 20:21] LABS: Bilirubin,Urine Negative (Negative); Clarity,Urine Clear (Clear); Color,Urine Yellow (Yellw/Straw); Glucose,Urine (UA) 50 mg/dL (Negative); Leukocyte Esterase,Urine Negative (Negative); Nitrite,Urine Negative (Negative); Specific Gravity,Urine 1.028 (1.002-1.035)
[2018-01-17 21:28] LABS: Prothrombin Time 10.5 sec (9.8-11.6)
[2018-01-17 22:02] LABS: Hematocrit 19.2 % (39.0-51.0); Hemoglobin 6.4 gm/dL (13.0-17.0)
[2018-01-18] MEDS: Morphine Inj 4 MG/ML Vial IV.PUSH PRN ×3 (00:18→08:51)
[2018-01-18] MEDS: Sod Chloride 0.9% Inj 1,000 ML IV.CONT SCH ×3 (01:18→18:30)
[2018-01-18 08:14] LABS: Baso % (Auto) 0.1 % (0.0-2.0); Eos % (Auto) 0.2 % (0.0-4.0); Hemoglobin 9.7 gm/dL (13.0-17.0); Lymph # (Auto) 0.3 th/mm3 (1.0-4.8); Lymph % (Auto) 5.4 % (9.0-44.0); Mean Corpuscular HGB Conc 35.9 % (32.0-36.0); Mean Corpuscular Hemoglobin 30.8 pg (27.0-34.0); Mean Corpuscular Volume 85.8 fL (80.0-100.0); Mean Platelet Volume 8.6 fL (7.0-11.0); Mono # (Auto) 0.4 th/mm3 (0.0-0.9); Mono % (Auto) 7.2 % (0.0-8.0); Neut # (Auto) 5.3 th/mm3 (1.8-7.7); Neut % (Auto) 87.1 % (16.0-70.0); Platelet Count 27 th/mm3 (150-450); Red Blood Count 3.15 mil/mm3 (4.50-5.90); Red Cell Distribution Width 15.5 % (11.6-17.2); White Blood Count 6.1 th/mm3 (4.0-11.0)
[2018-01-18] MEDS: predniSONE 20 MG Tablet PO SCH (08:41)
[2018-01-18] MEDS: Senna/Docusate Sodium 8.6/50 MG Tablet PO SCH ×2 (08:44→22:25)
[2018-01-18 08:53] LABS: Alanine Aminotransferase 12 U/L (12-78); Albumin 1.8 g/dL (3.4-5.0); Alkaline Phosphatase 44 U/L (45-117); Anion Gap 5 meq/L (5-15); Aspartate Aminotransferase 32 U/L (15-37); Blood Urea Nitrogen 38 mg/dL (7-18); Calcium 7.2 mg/dL (8.5-10.1); Carbon Dioxide 28.8 meq/L (21.0-32.0); Chloride 103 meq/L (98-107); Glomerular Filtration Rate Greater Than 89 mL/min (>89); Glucose,Random 87 mg/dL (74-106); Potassium 4.7 meq/L (3.5-5.1); Sodium 137 meq/L (136-145); Total Protein 3.9 g/dL (6.4-8.2)
[2018-01-18 08:58] LABS: Lymphocytes 5 % (9-44); Metamyelocytes 1 % (0-1); Monocytes 5 % (0-8); Myelocytes 2 % (0-0)
[2018-01-18 08:59] LABS: Burr Cells 2+; Platelet Morphology Normal (Normal)
--- NOTE | 2018-01-18 10:14 | P.CONGI ---
History of Present Illness Consult date: 01/18/18 Consult reason: GI bleed Chief complaint: symtomatic anemia History of Present Illness: This is a 72-year-old male who was recently discharged within the past week to [facility] in which during that time he had gastroenterology consult and following for GI bleed patient had EGDs on 917 and 922 which showed gastritis, 2 duodenal ulcers status post clipping, small hiatal hernia with linear ulceration possibly representing a Romie ulcer. Patient is also stage IV metastatic lung disease and had been undergoing chemo and radiation. Onset of symptoms for this admission appeared to be weakness and dizziness as well as uncontrolled left arm pain and left shoulder pain. On admission hemoglobin was 5.9 patient was transfused with 3 units packed RBCs. Current hemoglobin 9.7, PT /INR 1, bilirubin and LFTs are normal. Gastroenterology was consulted to assist for probable acute recurring GI bleed as well as a plan of care. Patient 's currently being managed with a Protonix drip and IV hydration at 84 cc an hour patient currently denies any symptoms of nausea vomiting or dyspepsia or any obvious bleeding and he is unaware of any melena stools. Patient is currently being managed on oxygen per nasal cannula and mild audible inspiratory wheeze. Patient does note chronic loose stools which could be related to his medications and comorbidities. CTA of the chest and chest x-ray have been done this admission which did show cardiomegaly, but no obvious pulmonary emboli. <Shira Simons - Last Filed: 01/18/18 10:04> Review of Systems All other systems reviewed negative except as stated in HPI <Shira Simons - Last Filed: 01/18/18 10:04> PMFSH - History History Provided By: Patient - Medical History Medical History: Medical History (Last Reviewed 01/17/18 @ 18:43 by CHRIS Neal) Alcohol dependence Anxiety Barretts esophagus Barretts esophagus COPD (chronic obstructive pulmonary disease) FHx: radiation therapy GERD (gastroesophageal reflux disease) GERD (gastroesophageal reflux disease) HTN (hypertension) High cholesterol History of blood transfusion History of chemotherapy Hyperlipidemia Hypertension Hypothyroidism Lymphedema of left upper extremity Peripheral arterial disease Skin cancer 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 - Surgical History Surgical History: Surgical History (Last Reviewed 01/17/18 @ 18:43 by CHRIS Neal) Port-A-Cath in place (Acute) Abnormal colonoscopy H/O angioplasty History of hip replacement Hx of hernia repair Hx of shoulder surgery Status post bilateral total hip replacement - Family History Family History: Family History (Last Reviewed 01/17/18 @ 18:43 by CHRIS Neal) Mother Natural with unknown cause - Tobacco History Second Hand Smoke Exposure: No Tobacco Use In Past 30 Days: Yes Smoking Status: Current every day smoker Tobacco Type: Cigarettes - Alcohol History How Often Do You Have a Drink Containing Alcohol: 2 to 3 times a week - Substance Use History Substance History: No History of Abuse - Travel History Recent Travel in the [place] Within the Last 8 Weeks: No Recent Travel Out of the Country Within the Last 8 Weeks: No - Immunization History Tetanus Immunization: Unable to Assess Hx Influenza Vaccine This Season: No <Shira Simons - Last Filed: 01/18/18 10:04> - Medical History Medical History: Medical History (Last Reviewed 01/17/18 @ 18:43 by HCRIS Neal) Alcohol dependence Anxiety Barretts esophagus Barretts esophagus COPD (chronic obstructive pulmonary disease) FHx: radiation therapy GERD (gastroesophageal reflux disease) GERD (gastroesophageal reflux disease) HTN (hypertension) High cholesterol History of blood transfusion History of chemotherapy Hyperlipidemia Hypertension Hypothyroidism Lymphedema of left upper extremity Peripheral arterial disease Skin cancer 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 - Surgical History Surgical History: Surgical History (Last Reviewed 01/17/18 @ 18:43 by CHRIS Neal) Port-A-Cath in place (Acute) Abnormal colonoscopy H/O angioplasty History of hip replacement Hx of hernia repair Hx of shoulder surgery Status post bilateral total hip replacement - Family History Family History: Family History (Last Reviewed 01/17/18 @ 18:43 by CHRIS Neal) Mother Natural with unknown cause <Carlos Wilder - Last Filed: 01/18/18 10:42> Medications and Allergies Active Medications: Active Medications Acetaminophen (Tylenol) 650 mg PO Q4H PRN PRN Reason: Temp > 100.4 Hydrocodone Bitart/Acetaminophen (Grant 5/325) 1 tab PO Q4H PRN PRN Reason: SEE LABEL COMMENTS Last Admin: 01/17/18 20:09 Dose: 1 tab Al Hydroxide/Mg Hydroxide (Milk Of Jaimie Liq) 30 ml PO Q12H PRN PRN Reason: Mild Constipation Albuterol (Duoneb Neb (Prn)) 1 ampul NEB Q2HR NEB PRN PRN Reason: WHEEZING Last Admin: 01/18/18 03:20 Dose: 1 ampul Albuterol (Duoneb Neb (Helen)) 1 ampul NEB Q4HR WHILE AWAKE NEB HELEN Last Admin: 01/18/18 07:43 Dose: 1 ampul Bisacodyl (Dulcolax Supp) 10 mg RECTAL DAILY PRN PRN Reason: SEVERE CONSITIPATION Sodium Chloride (Ns Inj) 1,000 mls @ 84 mls/hr IV.CONT .[id number] [facility] Last Admin: 01/18/18 08:56 Dose: 84 mls/hr Pantoprazole Sodium 80 mg/ (Sodium Chloride) 100 mls @ 10 mls/hr IV.CONT CONT [facility] Last Admin: 01/18/18 06:36 Dose: 10 mls/hr Sodium Chloride (Ns Inj) 250 mls @ 15 mls/hr IV.SIG ONCE [facility] Stop: 01/18/18 10:39 Last Admin: 01/18/18 01:00 Dose: 15 mls/hr Lactulose (Lactulose Liq) 30 ml PO DAILY PRN PRN Reason: SEVERE CONSITIPATION Morphine Sulfate (Morphine Inj) 3 mg IV.PUSH Q4H PRN PRN Reason: pain 1-10, unable to take PO Last Admin: 01/18/18 08:51 Dose: 3 mg Ondansetron HCl (Zofran Inj) 4 mg IV.PUSH Q6H PRN PRN Reason: NAUSEA OR VOMITING Prednisone (Deltasone) 20 mg PO DAILY [facility] Last Admin: 01/18/18 08:41 Dose: 20 mg Senna/Docusate Sodium ([place]-Colace) 1 tab PO BID [facility] Last Admin: 01/18/18 08:44 Dose: Not Given Sennosides (Senokot) 17.2 mg PO Q12H PRN PRN Reason: Moderate Constipation <Shira Simons M - Last Filed: 01/18/18 10:04> Active Medications: Active Medications Acetaminophen (Tylenol) 650 mg PO Q4H PRN PRN Reason: Temp > 100.4 Hydrocodone Bitart/Acetaminophen (Grant 5/325) 1 tab PO Q4H PRN PRN Reason: SEE LABEL COMMENTS Last Admin: 01/17/18 20:09 Dose: 1 tab Al Hydroxide/Mg Hydroxide (Milk Of Magnesia Liq) 30 ml PO Q12H PRN PRN Reason: Mild Constipation Albuterol (Duoneb Neb (Prn)) 1 ampul NEB Q2HR NEB PRN PRN Reason: WHEEZING Last Admin: 01/18/18 03:20 Dose: 1 ampul Albuterol (Duoneb Neb (Helen)) 1 ampul NEB Q4HR WHILE AWAKE NEB [facility] Last Admin: 01/18/18 07:43 Dose: 1 ampul Bisacodyl (Dulcolax Supp) 10 mg RECTAL DAILY PRN PRN Reason: SEVERE CONSITIPATION Sodium Chloride (Ns Inj) 1,000 mls @ 84 mls/hr IV.CONT .[id number] [facility] Last Admin: 01/18/18 08:56 Dose: 84 mls/hr Pantoprazole Sodium 80 mg/ (Sodium Chloride) 100 mls @ 10 mls/hr IV.CONT CONT [facility] Last Admin: 01/18/18 06:36 Dose: 10 mls/hr Lactulose (Lactulose Liq) 30 ml PO DAILY PRN PRN Reason: SEVERE CONSITIPATION Morphine Sulfate (Morphine Inj) 3 mg IV.PUSH Q4H PRN PRN Reason: pain 1-10, unable to take PO Last Admin: 01/18/18 08:51 Dose: 3 mg Ondansetron HCl (Zofran Inj) 4 mg IV.PUSH Q6H PRN PRN Reason: NAUSEA OR VOMITING Prednisone (Deltasone) 20 mg PO DAILY [facility] Last Admin: 01/18/18 08:41 Dose: 20 mg Senna/Docusate Sodium ([place]-Colace) 1 tab PO BID [facility] Last Admin: 01/18/18 08:44 Dose: Not Given Sennosides (Senokot) 17.2 mg PO Q12H PRN PRN Reason: Moderate Constipation <Carlos Wilder E - Last Filed: 01/18/18 10:42> Allergies Allergy/AdvReac Type Severity Reaction Status Date / Time No Known Allergies Allergy Verified 01/17/18 14:33 Home Medications Medication Instructions Recorded Confirmed Type albuterol sulfate [Ventolin HFA] 2 puff INHALATION Q4-6H PRN 07/13/18 10/01/18 History atorvastatin 20 mg PO HS 10/29/17 01/17/18 History Exam Vital signs: Vital Signs 01/17/18 14:35 01/17/18 14:40 01/17/18 15:14 Temperature 97.6 F Pulse Rate 88 87 Respiratory Rate 16 27 H Blood Pressure 52/28 L Pulse Oximetry 97 100 01/17/18 15:40 01/17/18 16:13 01/17/18 17:09 Temperature Pulse Rate 82 70 74 Respiratory Rate 28 H 24 24 Blood Pressure 122/90 95/60 L 110/60 Pulse Oximetry 100 95 4 L 01/17/18 19:44 01/17/18 20:03 01/17/18 21:18 Temperature 97.4 F L 97.4 F L Pulse Rate 84 81 Respiratory Rate 16 20 Blood Pressure 93/55 L 98/60 L 86/53 L Pulse Oximetry 97 97 01/17/18 21:37 01/18/18 00:00 01/18/18 00:05 Temperature 97.4 F L 97.3 F L 97.4 F L Pulse Rate 76 73 70 Respiratory Rate 18 18 18 Blood Pressure 96/52 L 97/51 L 109/59 L Pulse Oximetry 98 95 97 01/18/18 00:53 01/18/18 01:15 01/18/18 03:21 Temperature 97.4 F L 97.2 F L Pulse Rate 73 72 77 Respiratory Rate 16 16 19 Blood Pressure 97/56 L 101/59 L Pulse Oximetry 97 97 98 01/18/18 03:30 01/18/18 04:05 01/18/18 04:06 Temperature 97.8 F 97.8 F Pulse Rate 74 74 76 Respiratory Rate 16 16 Blood Pressure 102/59 L 101/57 L Pulse Oximetry 93 L 92 L 01/18/18 04:28 01/18/18 06:25 01/18/18 07:45 Temperature 97.5 F L 97.8 F Pulse Rate 76 82 84 Respiratory Rate 16 16 15 Blood Pressure 103/56 L 116/56 L Pulse Oximetry 93 L 93 L 98 01/18/18 08:00 Temperature 97.8 F Pulse Rate 87 Respiratory Rate 15 Blood Pressure 96/54 L Pulse Oximetry Intake & Output 01/17/18 01/18/18 01/18/18 18:59 06:59 18:59 Intake Total 1999 1200 / 1200 Output Total 650 / 650 Balance 1999 550 / 550 Weight 93.894 kg 99.9 kg Intake: IV 1999 NS Inj 1,000 ML @ Wide Open IV. 1999 SIG BOLUS ONE Rx#:[id number] Intake (Blood Product) Amt 1200 / 1200 Rbc As-3 Leukoreduced Unit 400 / 400 [id number] Rbc As-3 Leukoreduced Unit 400 / 400 [id number] Rbc As-3 Leukoreduced Unit 400 / 400 [id number] Output: Urine 650 / 650 Other: Date of Last Bowel Movement 01/17/18 Weight On Admission 99.7 kg - Constitutional mild distress, obese, disheveled, cooperative - Routine HEENT Exam Head: Present: normocephalic ENT: Present: mucous membranes moist - Routine Respiratory Exam Present: wheezes (Mild inspiratory), diminished air movement (Low volumes) - Routine Cardiovascular Exam Present: S1, S2 - Routine Abdominal Exam Present: soft (Distant round, soft bowel sounds no obvious abdominal pain) <Shira Simons - Last Filed: 01/18/18 10:04> Vital signs: Vital Signs 01/17/18 14:35 01/17/18 14:40 01/17/18 15:14 Temperature 97.6 F Pulse Rate 88 87 Respiratory Rate 16 27 H Blood Pressure 52/28 L Pulse Oximetry 97 100 01/17/18 15:40 01/17/18 16:13 01/17/18 17:09 Temperature Pulse Rate 82 70 74 Respiratory Rate 28 H 24 24 Blood Pressure 122/90 95/60 L 110/60 Pulse Oximetry 100 95 4 L 01/17/18 19:44 01/17/18 20:03 01/17/18 21:18 Temperature 97.4 F L 97.4 F L Pulse Rate 84 81 Respiratory Rate 16 20 Blood Pressure 93/55 L 98/60 L 86/53 L Pulse Oximetry 97 97 01/17/18 21:37 01/18/18 00:00 01/18/18 00:05 Temperature 97.4 F L 97.3 F L 97.4 F L Pulse Rate 76 73 70 Respiratory Rate 18 18 18 Blood Pressure 96/52 L 97/51 L 109/59 L Pulse Oximetry 98 95 97 01/18/18 00:53 01/18/18 01:15 01/18/18 03:21 Temperature 97.4 F L 97.2 F L Pulse Rate 73 72 77 Respiratory Rate 16 16 19 Blood Pressure 97/56 L 101/59 L Pulse Oximetry 97 97 98 01/18/18 03:30 01/18/18 04:05 01/18/18 04:06 Temperature 97.8 F 97.8 F Pulse Rate 74 74 76 Respiratory Rate 16 16 Blood Pressure 102/59 L 101/57 L Pulse Oximetry 93 L 92 L 01/18/18 04:28 01/18/18 06:25 01/18/18 07:45 Temperature 97.5 F L 97.8 F Pulse Rate 76 82 84 Respiratory Rate 16 16 15 Blood Pressure 103/56 L 116/56 L Pulse Oximetry 93 L 93 L 98 01/18/18 08:00 Temperature 97.8 F Pulse Rate 87 Respiratory Rate 15 Blood Pressure 96/54 L Pulse Oximetry Intake & Output 01/17/18 01/18/18 01/18/18 18:59 06:59 18:59 Intake Total 1999 1200 / 1200 Output Total 650 / 650 Balance 1999 550 / 550 Weight 93.894 kg 99.9 kg Intake: IV 1999 NS Inj 1,000 ML @ Wide Open IV. 1999 SIG BOLUS ONE Rx#:[id number] Intake (Blood Product) Amt 1200 / 1200 Rbc As-3 Leukoreduced Unit 400 / 400 [id number] Rbc As-3 Leukoreduced Unit 400 / 400 [id number] Rbc As-3 Leukoreduced Unit 400 / 400 [id number] Output: Urine 650 / 650 Other: Date of Last Bowel Movement 01/17/18 Weight On Admission 99.7 kg <Carlos Wilder E - Last Filed: 01/18/18 10:42> Results - Labs CBC & Chem 7: 01/18/18 07:42 01/18/18 07:42 Labs: Laboratory Results - last 24 hr 01/17/18 01/17/18 01/17/18 14:50 14:50 14:50 WBC 6.2 RBC 1.95 L Hgb 5.9 L* Hct 17.6 L* MCV 90.2 MCH 30.5 MCHC 33.8 RDW 20.0 H Plt Count 28 L MPV 8.3 Prelim Diff (Auto) Slide review pending Neut % (Auto) 88.6 H Lymph % (Auto) 4.0 L [place] % (Auto) 7.1 Eos % (Auto) 0.2 Baso % (Auto) 0.1 Neut # (Auto) 5.5 Lymph # (Auto) 0.2 L [place] # (Auto) 0.4 Eos # (Auto) 0.0 Baso # (Auto) 0.0 WBC Differential . Diff Scan Auto diff confirmed Seg Neuts % (Manual) Band Neuts % (Manual) Lymphocytes % (Manual) Monocytes % (Manual) Metamyelocytes % (Man) Myelocytes % (Man) Abs Neuts (Manual) Differential Comment . Platelet Estimate Low L Platelet Morphology Normal [place] Cells PT INR Sodium 139 Potassium 5.0 Chloride 102 Carbon Dioxide 26.4 Anion Gap 11 BUN 43 H Creatinine 0.80 Estimated GFR Greater than 89 Random Glucose 132 H Lactic Acid Calcium 6.6 L* Prot Corrected Calcium 8.9 Magnesium 1.6 Total Bilirubin 0.2 AST 18 ALT 8 L Alkaline Phosphatase 32 L Troponin I 0.16 H B-Natriuretic Peptide 77 Total Protein 3.1 L D Albumin 1.4 L Urine Color Urine Clarity Urine pH Ur Specific Anita Urine Protein Urine Glucose (UA) Urine Ketones Urine Occult Blood Urine Nitrate Urine Bilirubin Urine Urobilinogen Ur Leukocyte Esterase Urine RBC Urine WBC Micro UA Comment Ur Microscopic Review Urine Culture Comments Blood Type Antibody Screen MTS Gel Crossmatch Bld Prod Order Comment 01/17/18 01/17/18 01/17/18 14:50 15:00 15:32 WBC RBC Hgb Hct MCV MCH MCHC RDW Plt Count MPV Prelim Diff (Auto) Neut % (Auto) Lymph % (Auto) [place] % (Auto) Eos % (Auto) Baso % (Auto) Neut # (Auto) Lymph # (Auto) [place] # (Auto) Eos # (Auto) Baso # (Auto) WBC Differential Diff Scan Seg Neuts % (Manual) Band Neuts % (Manual) Lymphocytes % (Manual) Monocytes % (Manual) Metamyelocytes % (Man) Myelocytes % (Man) Abs Neuts (Manual) Differential Comment Platelet Estimate Platelet Morphology [place] Cells PT INR Sodium Potassium Chloride Carbon Dioxide Anion Gap BUN Creatinine Estimated GFR Random Glucose Lactic Acid 3.2 H Calcium Prot Corrected Calcium Magnesium Total Bilirubin AST ALT Alkaline Phosphatase Troponin I B-Natriuretic Peptide Total Protein Albumin Urine Color Urine Clarity Urine pH Ur Specific [place]ita Urine Protein Urine Glucose (UA) Urine Ketones Urine Occult Blood Urine Nitrate Urine Bilirubin Urine Urobilinogen Ur Leukocyte Esterase Urine RBC Urine WBC Micro UA Comment Ur Microscopic Review Urine Culture Comments Blood Type A Negative Antibody Screen Negative MTS Gel Crossmatch See Detail Bld Prod Order Comment 01/17/18 01/17/18 01/17/18 17:53 18:31 18:35 WBC RBC Hgb Hct MCV MCH MCHC RDW Plt Count MPV Prelim Diff (Auto) Neut % (Auto) Lymph % (Auto) [place] % (Auto) Eos % (Auto) Baso % (Auto) Neut # (Auto) Lymph # (Auto) [place] # (Auto) Eos # (Auto) Baso # (Auto) WBC Differential Diff Scan Seg Neuts % (Manual) Band Neuts % (Manual) Lymphocytes % (Manual) Monocytes % (Manual) Metamyelocytes % (Man) Myelocytes % (Man) Abs Neuts (Manual) Differential Comment Platelet Estimate Platelet Morphology [place] Cells PT INR Sodium Potassium Chloride Carbon Dioxide Anion Gap BUN Creatinine Estimated GFR Random Glucose Lactic Acid 2.2 H Calcium Prot Corrected Calcium Magnesium Total Bilirubin AST ALT Alkaline Phosphatase Troponin I B-Natriuretic Peptide Total Protein Albumin Urine Color Yellow Urine Clarity Clear Urine pH 5.0 Ur Specific [place]ita 1.028 Urine Protein Negative Urine Glucose (UA) 50 Urine Ketones Negative Urine Occult Blood Negative Urine Nitrate Negative Urine Bilirubin Negative Urine Urobilinogen Less than 2 Ur Leukocyte Esterase Negative Urine RBC Less than 1 Urine WBC 1 Micro UA Comment Culture not ind Ur Microscopic Review Not Reportable Urine Culture Comments Culture not ind Blood Type Antibody Screen MTS Gel Crossmatch See Detail Bld Prod Order Comment Cancelled 01/17/18 01/17/18 01/18/18 20:40 20:40 07:42 WBC 6.1 RBC 3.15 L Hgb 6.4 L* 9.7 L D Hct 19.2 L* 27.0 L MCV 85.8 D MCH 30.8 MCHC 35.9 RDW 15.5 D Plt Count 27 L MPV 8.6 Prelim Diff (Auto) Slide review pending Neut % (Auto) 87.1 H Lymph % (Auto) 5.4 L [place] % (Auto) 7.2 Eos % (Auto) 0.2 Baso % (Auto) 0.1 Neut # (Auto) 5.3 Lymph # (Auto) 0.3 L [place] # (Auto) 0.4 Eos # (Auto) 0.0 Baso # (Auto) 0.0 WBC Differential Manual diff final Diff Scan Seg Neuts % (Manual) 84 H Band Neuts % (Manual) 3 Lymphocytes % (Manual) 5 L Monocytes % (Manual) 5 Metamyelocytes % (Man) 1 Myelocytes % (Man) 2 H Abs Neuts (Manual) 5.5 Differential Comment . Platelet Estimate Low L Platelet Morphology Normal [place] Cells 2+ H PT 10.5 INR 1.0 Sodium Potassium Chloride Carbon Dioxide Anion Gap BUN Creatinine Estimated GFR Random Glucose Lactic Acid Calcium Prot Corrected Calcium Magnesium Total Bilirubin AST ALT Alkaline Phosphatase Troponin I B-Natriuretic Peptide Total Protein Albumin Urine Color Urine Clarity Urine pH Ur Specific [place] Urine Protein Urine Glucose (UA) Urine Ketones Urine Occult Blood Urine Nitrate Urine Bilirubin Urine Urobilinogen Ur Leukocyte Esterase Urine RBC Urine WBC Micro UA Comment Ur Microscopic Review Urine Culture Comments Blood Type Antibody Screen MTS Gel Crossmatch Bld Prod Order Comment 01/18/18 07:42 WBC RBC Hgb Hct MCV MCH MCHC RDW Plt Count MPV Prelim Diff (Auto) Neut % (Auto) Lymph % (Auto) [place] % (Auto) Eos % (Auto) Baso % (Auto) Neut # (Auto) Lymph # (Auto) [place] # (Auto) Eos # (Auto) Baso # (Auto) WBC Differential Diff Scan Seg Neuts % (Manual) Band Neuts % (Manual) Lymphocytes % (Manual) Monocytes % (Manual) Metamyelocytes % (Man) Myelocytes % (Man) Abs Neuts (Manual) Differential Comment Platelet Estimate Platelet Morphology [place]y Cells PT INR Sodium 137 Potassium 4.7 Chloride 103 Carbon Dioxide 28.8 Anion Gap 5 BUN 38 H Creatinine 0.69 Estimated GFR Greater than 89 Random Glucose 87 Lactic Acid Calcium 7.2 L* Prot Corrected Calcium 9.1 Magnesium Total Bilirubin 0.7 AST 32 ALT 12 Alkaline Phosphatase 44 L Troponin I B-Natriuretic Peptide Total Protein 3.9 L D Albumin 1.8 L Urine Color Urine Clarity Urine pH Ur Specific [place] Urine Protein Urine Glucose (UA) Urine Ketones Urine Occult Blood Urine Nitrate Urine Bilirubin Urine Urobilinogen Ur Leukocyte Esterase Urine RBC Urine WBC Micro UA Comment Ur Microscopic Review Urine Culture Comments Blood Type Antibody Screen MTS Gel Crossmatch Bld Prod Order Comment - Imaging Impressions Chest X-Ray 01/17/18 14:41 CONCLUSION: Cardiomegaly with moderate elevation of the right hemidiaphragm. Possible trace pleural effusion on the left. Chest CTA 01/17/18 14:42 CONCLUSION: 1. No evidence of pulmonary embolism. 2. Moderate-sized left pleural effusion and tiny right pleural effusion. 3. Bibasilar atelectasis and/or infiltrates. 4. Left axillary mass is stable. 5. Diffuse edema is noted throughout the left chest wall. 6. At least 2 ribs on the left (first and fourth) are sclerotic raising the possibility of metastatic disease. 7. Coronary artery calcifications. 8. Degenerative changes throughout the thoracic spine. <Shira Simons - Last Filed: 01/18/18 10:04> - Labs CBC & Chem 7: 01/18/18 07:42 01/18/18 07:42 Labs: Laboratory Results - last 24 hr 01/17/18 01/17/18 01/17/18 14:50 14:50 14:50 WBC 6.2 RBC 1.95 L Hgb 5.9 L* Hct 17.6 L* MCV 90.2 MCH 30.5 MCHC 33.8 RDW 20.0 H Plt Count 28 L MPV 8.3 Prelim Diff (Auto) Slide review pending Neut % (Auto) 88.6 H Lymph % (Auto) 4.0 L [place] % (Auto) 7.1 Eos % (Auto) 0.2 Baso % (Auto) 0.1 Neut # (Auto) 5.5 Lymph # (Auto) 0.2 L [place] # (Auto) 0.4 Eos # (Auto) 0.0 Baso # (Auto) 0.0 WBC Differential . Diff Scan Auto diff confirmed Seg Neuts % (Manual) Band Neuts % (Manual) Lymphocytes % (Manual) Monocytes % (Manual) Metamyelocytes % (Man) Myelocytes % (Man) Abs Neuts (Manual) Differential Comment . Platelet Estimate Low L Platelet Morphology Normal [place] Cells PT INR Sodium 139 Potassium 5.0 Chloride 102 Carbon Dioxide 26.4 Anion Gap 11 BUN 43 H Creatinine 0.80 Estimated GFR Greater than 89 Random Glucose 132 H Lactic Acid Calcium 6.6 L* Prot Corrected Calcium 8.9 Magnesium 1.6 Total Bilirubin 0.2 AST 18 ALT 8 L Alkaline Phosphatase 32 L Troponin I 0.16 H B-Natriuretic Peptide 77 Total Protein 3.1 L D Albumin 1.4 L Urine Color Urine Clarity Urine pH Ur Specific [place] Urine Protein Urine Glucose (UA) Urine Ketones Urine Occult Blood Urine Nitrate Urine Bilirubin Urine Urobilinogen Ur Leukocyte Esterase Urine RBC Urine WBC Micro UA Comment Ur Microscopic Review Urine Culture Comments Blood Type Antibody Screen MTS Gel Crossmatch Bld Prod Order Comment 01/17/18 01/17/18 01/17/18 14:50 15:00 15:32 WBC RBC Hgb Hct MCV MCH MCHC RDW Plt Count MPV Prelim Diff (Auto) Neut % (Auto) Lymph % (Auto) [place] % (Auto) Eos % (Auto) Baso % (Auto) Neut # (Auto) Lymph # (Auto) [place] # (Auto) Eos # (Auto) Baso # (Auto) WBC Differential Diff Scan Seg Neuts % (Manual) Band Neuts % (Manual) Lymphocytes % (Manual) Monocytes % (Manual) Metamyelocytes % (Man) Myelocytes % (Man) Abs Neuts (Manual) Differential Comment Platelet Estimate Platelet Morphology [place]y Cells PT INR Sodium Potassium Chloride Carbon Dioxide Anion Gap BUN Creatinine Estimated GFR Random Glucose Lactic Acid 3.2 H Calcium Prot Corrected Calcium Magnesium Total Bilirubin AST ALT Alkaline Phosphatase Troponin I B-Natriuretic Peptide Total Protein Albumin Urine Color Urine Clarity Urine pH Ur Specific [place] Urine Protein Urine Glucose (UA) Urine Ketones Urine Occult Blood Urine Nitrate Urine Bilirubin Urine Urobilinogen Ur Leukocyte Esterase Urine RBC Urine WBC Micro UA Comment Ur Microscopic Review Urine Culture Comments Blood Type A Negative Antibody Screen Negative MTS Gel Crossmatch See Detail Bld Prod Order Comment 01/17/18 01/17/18 01/17/18 17:53 18:31 18:35 WBC RBC Hgb Hct MCV MCH MCHC RDW Plt Count MPV Prelim Diff (Auto) Neut % (Auto) Lymph % (Auto) [place] % (Auto) Eos % (Auto) Baso % (Auto) Neut # (Auto) Lymph # (Auto) [place] # (Auto) Eos # (Auto) Baso # (Auto) WBC Differential Diff Scan Seg Neuts % (Manual) Band Neuts % (Manual) Lymphocytes % (Manual) Monocytes % (Manual) Metamyelocytes % (Man) Myelocytes % (Man) Abs Neuts (Manual) Differential Comment Platelet Estimate Platelet Morphology [place] Cells PT INR Sodium Potassium Chloride Carbon Dioxide Anion Gap BUN Creatinine Estimated GFR Random Glucose Lactic Acid 2.2 H Calcium Prot Corrected Calcium Magnesium Total Bilirubin AST ALT Alkaline Phosphatase Troponin I B-Natriuretic Peptide Total Protein Albumin Urine Color Yellow Urine Clarity Clear Urine pH 5.0 Ur Specific [place] 1.028 Urine Protein Negative Urine Glucose (UA) 50 Urine Ketones Negative Urine Occult Blood Negative Urine Nitrate Negative Urine Bilirubin Negative Urine Urobilinogen Less than 2 Ur Leukocyte Esterase Negative Urine RBC Less than 1 Urine WBC 1 Micro UA Comment Culture not ind Ur Microscopic Review Not Reportable Urine Culture Comments Culture not ind Blood Type Antibody Screen MTS Gel Crossmatch See Detail Bld Prod Order Comment Cancelled 01/17/18 01/17/18 01/18/18 20:40 20:40 07:42 WBC 6.1 RBC 3.15 L Hgb 6.4 L* 9.7 L D Hct 19.2 L* 27.0 L MCV 85.8 D MCH 30.8 MCHC 35.9 RDW 15.5 D Plt Count 27 L MPV 8.6 Prelim Diff (Auto) Slide review pending Neut % (Auto) 87.1 H Lymph % (Auto) 5.4 L [place] % (Auto) 7.2 Eos % (Auto) 0.2 Baso % (Auto) 0.1 Neut # (Auto) 5.3 Lymph # (Auto) 0.3 L [place] # (Auto) 0.4 Eos # (Auto) 0.0 Baso # (Auto) 0.0 WBC Differential Manual diff final Diff Scan Seg Neuts % (Manual) 84 H Band Neuts % (Manual) 3 Lymphocytes % (Manual) 5 L Monocytes % (Manual) 5 Metamyelocytes % (Man) 1 Myelocytes % (Man) 2 H Abs Neuts (Manual) 5.5 Differential Comment . Platelet Estimate Low L Platelet Morphology Normal Vy Cells 2+ H PT 10.5 INR 1.0 Sodium Potassium Chloride Carbon Dioxide Anion Gap BUN Creatinine Estimated GFR Random Glucose Lactic Acid Calcium Prot Corrected Calcium Magnesium Total Bilirubin AST ALT Alkaline Phosphatase Troponin I B-Natriuretic Peptide Total Protein Albumin Urine Color Urine Clarity Urine pH Ur Specific [place] Urine Protein Urine Glucose (UA) Urine Ketones Urine Occult Blood Urine Nitrate Urine Bilirubin Urine Urobilinogen Ur Leukocyte Esterase Urine RBC Urine WBC Micro UA Comment Ur Microscopic Review Urine Culture Comments Blood Type Antibody Screen MTS Gel Crossmatch Bld Prod Order Comment 01/18/18 07:42 WBC RBC Hgb Hct MCV MCH MCHC RDW Plt Count MPV Prelim Diff (Auto) Neut % (Auto) Lymph % (Auto) [place] % (Auto) Eos % (Auto) Baso % (Auto) Neut # (Auto) Lymph # (Auto) [place] # (Auto) Eos # (Auto) Baso # (Auto) WBC Differential Diff Scan Seg Neuts % (Manual) Band Neuts % (Manual) Lymphocytes % (Manual) Monocytes % (Manual) Metamyelocytes % (Man) Myelocytes % (Man) Abs Neuts (Manual) Differential Comment Platelet Estimate Platelet Morphology [place] Cells PT INR Sodium 137 Potassium 4.7 Chloride 103 Carbon Dioxide 28.8 Anion Gap 5 BUN 38 H Creatinine 0.69 Estimated GFR Greater than 89 Random Glucose 87 Lactic Acid Calcium 7.2 L* Prot Corrected Calcium 9.1 Magnesium Total Bilirubin 0.7 AST 32 ALT 12 Alkaline Phosphatase 44 L Troponin I B-Natriuretic Peptide Total Protein 3.9 L D Albumin 1.8 L Urine Color Urine Clarity Urine pH Ur Specific [place] Urine Protein Urine Glucose (UA) Urine Ketones Urine Occult Blood Urine Nitrate Urine Bilirubin Urine Urobilinogen Ur Leukocyte Esterase Urine RBC Urine WBC Micro UA Comment Ur Microscopic Review Urine Culture Comments Blood Type Antibody Screen MTS Gel Crossmatch Bld Prod Order Comment - Imaging Impressions Chest X-Ray 01/17/18 14:41 CONCLUSION: Cardiomegaly with moderate elevation of the right hemidiaphragm. Possible trace pleural effusion on the left. Chest CTA 01/17/18 14:42 CONCLUSION: 1. No evidence of pulmonary embolism. 2. Moderate-sized left pleural effusion and tiny right pleural effusion. 3. Bibasilar atelectasis and/or infiltrates. 4. Left axillary mass is stable. 5. Diffuse edema is noted throughout the left chest wall. 6. At least 2 ribs on the left (first and fourth) are sclerotic raising the possibility of metastatic disease. 7. Coronary artery calcifications. 8. Degenerative changes throughout the thoracic spine. <Carlos Wilder E - Last Filed: 01/18/18 10:42> Assessment and Plan - Plan 72-year-old male who was recently discharged within the past week to [facility] in which during that time he had gastroenterology consult and following for GI bleed patient had EGDs on 917 and 922 which showed gastritis, 2 duodenal ulcers status post clipping, small hiatal hernia with linear ulceration possibly representing a Romie ulcer. Patient is also stage IV metastatic lung disease and had been undergoing chemo and radiation. Onset of symptoms for this admission appeared to be weakness and dizziness as well as uncontrolled left arm pain and left shoulder pain. On admission hemoglobin was 5.9 patient was transfused with 3 units packed RBCs. Current hemoglobin 9.7, PT /INR 1, bilirubin and LFTs are normal. Gastroenterology was consulted to assist for probable acute recurring GI bleed as well as a plan of care. Patient 's currently being managed with a Protonix drip and IV hydration at 84 cc an hour patient currently denies any symptoms of nausea vomiting or dyspepsia or any obvious bleeding and he is unaware of any melena stools. Patient is currently being managed on oxygen per nasal cannula and mild audible inspiratory wheeze. Patient does note chronic loose stools which could be related to his medications and comorbidities. CTA of the chest and chest x-ray have been done this admission which did show cardiomegaly, but no obvious pulmonary emboli. GI bleed, possibly related to previously noted duodenal ulcers Symptomatic anemia related to #1, 2 previous EGDs this past admission and patient was recently discharged within the last week. Plan N.p.o. for now EGD today Protonix drip Monitor intake and output, and bowel regimen Monitor labs with special attention hemoglobin and transfuse as needed Further recommendations to follow Patient was seen per myself and Dr. Wilder, note was written on his behalf <Shira Simons - Last Filed: 01/18/18 10:04> - Plan Patient seen and examined Agree with above Continue with current supportive care Monitor labs and transfuse as needed We will proceed with an EGD next <Carlos Wilder - Last Filed: 01/18/18 10:42>
[2018-01-18] MEDS ORDERED: Chlorhexidine Gluconate 2% 1 Pack (2 Cloths) TOPICAL ONE (11:00)
[2018-01-18] MEDS ORDERED: Metoprolol Tartrate 25 MG Tablet PO ONE (11:00)
[2018-01-18] MEDS ORDERED: Sodium Chlor 0.9% Inj 500 ML IV.CONT ONE (11:00)
--- NOTE | 2018-01-18 11:09 | P.PNIM ---
Subjective Interval history: patient begging for more pain meds due to left arm pain. Physical Exam Vital signs: Vital Signs 01/17/18 14:35 01/17/18 14:40 01/17/18 15:14 Temperature 97.6 F Pulse Rate 88 87 Respiratory Rate 16 27 H Blood Pressure 52/28 L Pulse Oximetry 97 100 01/17/18 15:40 01/17/18 16:13 01/17/18 17:09 Temperature Pulse Rate 82 70 74 Respiratory Rate 28 H 24 24 Blood Pressure 122/90 95/60 L 110/60 Pulse Oximetry 100 95 4 L 01/17/18 19:44 01/17/18 20:03 01/17/18 21:18 Temperature 97.4 F L 97.4 F L Pulse Rate 84 81 Respiratory Rate 16 20 Blood Pressure 93/55 L 98/60 L 86/53 L Pulse Oximetry 97 97 01/17/18 21:37 01/18/18 00:00 01/18/18 00:05 Temperature 97.4 F L 97.3 F L 97.4 F L Pulse Rate 76 73 70 Respiratory Rate 18 18 18 Blood Pressure 96/52 L 97/51 L 109/59 L Pulse Oximetry 98 95 97 01/18/18 00:53 01/18/18 01:15 01/18/18 03:21 Temperature 97.4 F L 97.2 F L Pulse Rate 73 72 77 Respiratory Rate 16 16 19 Blood Pressure 97/56 L 101/59 L Pulse Oximetry 97 97 98 01/18/18 03:30 01/18/18 04:05 01/18/18 04:06 Temperature 97.8 F 97.8 F Pulse Rate 74 74 76 Respiratory Rate 16 16 Blood Pressure 102/59 L 101/57 L Pulse Oximetry 93 L 92 L 01/18/18 04:28 01/18/18 06:25 01/18/18 07:45 Temperature 97.5 F L 97.8 F Pulse Rate 76 82 84 Respiratory Rate 16 16 15 Blood Pressure 103/56 L 116/56 L Pulse Oximetry 93 L 93 L 98 01/18/18 08:00 Temperature 97.8 F Pulse Rate 87 Respiratory Rate 15 Blood Pressure 96/54 L Pulse Oximetry Intake & Output 01/17/18 01/18/18 01/18/18 18:59 06:59 18:59 Intake Total 1999 1200 / 1200 Output Total 650 / 650 Balance 1999 550 / 550 Weight 93.894 kg 99.9 kg Intake: IV 1999 NS Inj 1,000 ML @ Wide Open IV. 1999 SIG BOLUS ONE Rx#:[id number] Intake (Blood Product) Amt 1200 / 1200 Rbc As-3 Leukoreduced Unit 400 / 400 [id number] Rbc As-3 Leukoreduced Unit 400 / 400 [id number] Rbc As-3 Leukoreduced Unit 400 / 400 [id number] Output: Urine 650 / 650 Other: Date of Last Bowel Movement 01/17/18 Weight On Admission 99.7 kg oriented heart reg lung course bs abd s/nt ext left arm lymphedema/nodular skin changes due to mets and large eroded/ulcerated area left arm with foul odor. left chest/abd nodular changes. Results - Labs CBC & Chem 7: 01/18/18 07:42 01/18/18 07:42 Laboratory Results - last 24 hr 01/17/18 01/17/18 01/17/18 14:50 14:50 14:50 WBC 6.2 RBC 1.95 L Hgb 5.9 L* Hct 17.6 L* MCV 90.2 MCH 30.5 MCHC 33.8 RDW 20.0 H Plt Count 28 L MPV 8.3 Prelim Diff (Auto) Slide review pending Neut % (Auto) 88.6 H Lymph % (Auto) 4.0 L [place] % (Auto) 7.1 Eos % (Auto) 0.2 Baso % (Auto) 0.1 Neut # (Auto) 5.5 Lymph # (Auto) 0.2 L [place] # (Auto) 0.4 Eos # (Auto) 0.0 Baso # (Auto) 0.0 WBC Differential . Diff Scan Auto diff confirmed Seg Neuts % (Manual) Band Neuts % (Manual) Lymphocytes % (Manual) Monocytes % (Manual) Metamyelocytes % (Man) Myelocytes % (Man) Abs Neuts (Manual) Differential Comment . Platelet Estimate Low L Platelet Morphology Normal [place] Cells PT INR Sodium 139 Potassium 5.0 Chloride 102 Carbon Dioxide 26.4 Anion Gap 11 BUN 43 H Creatinine 0.80 Estimated GFR Greater than 89 Random Glucose 132 H Lactic Acid Calcium 6.6 L* Prot Corrected Calcium 8.9 Magnesium 1.6 Total Bilirubin 0.2 AST 18 ALT 8 L Alkaline Phosphatase 32 L Troponin I 0.16 H B-Natriuretic Peptide 77 Total Protein 3.1 L D Albumin 1.4 L Urine Color Urine Clarity Urine pH Ur Specific [place] Urine Protein Urine Glucose (UA) Urine Ketones Urine Occult Blood Urine Nitrate Urine Bilirubin Urine Urobilinogen Ur Leukocyte Esterase Urine RBC Urine WBC Micro UA Comment Ur Microscopic Review Urine Culture Comments Blood Type Antibody Screen MTS Gel Crossmatch Bld Prod Order Comment 01/17/18 01/17/18 01/17/18 14:50 15:00 15:32 WBC RBC Hgb Hct MCV MCH MCHC RDW Plt Count MPV Prelim Diff (Auto) Neut % (Auto) Lymph % (Auto) [place] % (Auto) Eos % (Auto) Baso % (Auto) Neut # (Auto) Lymph # (Auto) [place] # (Auto) Eos # (Auto) Baso # (Auto) WBC Differential Diff Scan Seg Neuts % (Manual) Band Neuts % (Manual) Lymphocytes % (Manual) Monocytes % (Manual) Metamyelocytes % (Man) Myelocytes % (Man) Abs Neuts (Manual) Differential Comment Platelet Estimate Platelet Morphology [place] Cells PT INR Sodium Potassium Chloride Carbon Dioxide Anion Gap BUN Creatinine Estimated GFR Random Glucose Lactic Acid 3.2 H Calcium Prot Corrected Calcium Magnesium Total Bilirubin AST ALT Alkaline Phosphatase Troponin I B-Natriuretic Peptide Total Protein Albumin Urine Color Urine Clarity Urine pH Ur Specific [place] Urine Protein Urine Glucose (UA) Urine Ketones Urine Occult Blood Urine Nitrate Urine Bilirubin Urine Urobilinogen Ur Leukocyte Esterase Urine RBC Urine WBC Micro UA Comment Ur Microscopic Review Urine Culture Comments Blood Type A Negative Antibody Screen Negative MTS Gel Crossmatch See Detail Bld Prod Order Comment 01/17/18 01/17/18 01/17/18 17:53 18:31 18:35 WBC RBC Hgb Hct MCV MCH MCHC RDW Plt Count MPV Prelim Diff (Auto) Neut % (Auto) Lymph % (Auto) [place] % (Auto) Eos % (Auto) Baso % (Auto) Neut # (Auto) Lymph # (Auto) [place] # (Auto) Eos # (Auto) Baso # (Auto) WBC Differential Diff Scan Seg Neuts % (Manual) Band Neuts % (Manual) Lymphocytes % (Manual) Monocytes % (Manual) Metamyelocytes % (Man) Myelocytes % (Man) Abs Neuts (Manual) Differential Comment Platelet Estimate Platelet Morphology Vy Cells PT INR Sodium Potassium Chloride Carbon Dioxide Anion Gap BUN Creatinine Estimated GFR Random Glucose Lactic Acid 2.2 H Calcium Prot Corrected Calcium Magnesium Total Bilirubin AST ALT Alkaline Phosphatase Troponin I B-Natriuretic Peptide Total Protein Albumin Urine Color Yellow Urine Clarity Clear Urine pH 5.0 Ur Specific [place] 1.028 Urine Protein Negative Urine Glucose (UA) 50 Urine Ketones Negative Urine Occult Blood Negative Urine Nitrate Negative Urine Bilirubin Negative Urine Urobilinogen Less than 2 Ur Leukocyte Esterase Negative Urine RBC Less than 1 Urine WBC 1 Micro UA Comment Culture not ind Ur Microscopic Review Not Reportable Urine Culture Comments Culture not ind Blood Type Antibody Screen MTS Gel Crossmatch See Detail Bld Prod Order Comment Cancelled 01/17/18 01/17/18 01/18/18 20:40 20:40 07:42 WBC 6.1 RBC 3.15 L Hgb 6.4 L* 9.7 L D Hct 19.2 L* 27.0 L MCV 85.8 D MCH 30.8 MCHC 35.9 RDW 15.5 D Plt Count 27 L MPV 8.6 Prelim Diff (Auto) Slide review pending Neut % (Auto) 87.1 H Lymph % (Auto) 5.4 L [place] % (Auto) 7.2 Eos % (Auto) 0.2 Baso % (Auto) 0.1 Neut # (Auto) 5.3 Lymph # (Auto) 0.3 L [place] # (Auto) 0.4 Eos # (Auto) 0.0 Baso # (Auto) 0.0 WBC Differential Manual diff final Diff Scan Seg Neuts % (Manual) 84 H Band Neuts % (Manual) 3 Lymphocytes % (Manual) 5 L Monocytes % (Manual) 5 Metamyelocytes % (Man) 1 Myelocytes % (Man) 2 H Abs Neuts (Manual) 5.5 Differential Comment . Platelet Estimate Low L Platelet Morphology Normal [place] Cells 2+ H PT 10.5 INR 1.0 Sodium Potassium Chloride Carbon Dioxide Anion Gap BUN Creatinine Estimated GFR Random Glucose Lactic Acid Calcium Prot Corrected Calcium Magnesium Total Bilirubin AST ALT Alkaline Phosphatase Troponin I B-Natriuretic Peptide Total Protein Albumin Urine Color Urine Clarity Urine pH Ur Specific [place] Urine Protein Urine Glucose (UA) Urine Ketones Urine Occult Blood Urine Nitrate Urine Bilirubin Urine Urobilinogen Ur Leukocyte Esterase Urine RBC Urine WBC Micro UA Comment Ur Microscopic Review Urine Culture Comments Blood Type Antibody Screen MTS Gel Crossmatch Bld Prod Order Comment 10/02/18 07:42 WBC RBC Hgb Hct MCV MCH MCHC RDW Plt Count MPV Prelim Diff (Auto) Neut % (Auto) Lymph % (Auto) [place] % (Auto) Eos % (Auto) Baso % (Auto) Neut # (Auto) Lymph # (Auto) [place] # (Auto) Eos # (Auto) Baso # (Auto) WBC Differential Diff Scan Seg Neuts % (Manual) Band Neuts % (Manual) Lymphocytes % (Manual) Monocytes % (Manual) Metamyelocytes % (Man) Myelocytes % (Man) Abs Neuts (Manual) Differential Comment Platelet Estimate Platelet Morphology [place]y Cells PT INR Sodium 137 Potassium 4.7 Chloride 103 Carbon Dioxide 28.8 Anion Gap 5 BUN 38 H Creatinine 0.69 Estimated GFR Greater than 89 Random Glucose 87 Lactic Acid Calcium 7.2 L* Prot Corrected Calcium 9.1 Magnesium Total Bilirubin 0.7 AST 32 ALT 12 Alkaline Phosphatase 44 L Troponin I B-Natriuretic Peptide Total Protein 3.9 L D Albumin 1.8 L Urine Color Urine Clarity Urine pH Ur Specific [place] Urine Protein Urine Glucose (UA) Urine Ketones Urine Occult Blood Urine Nitrate Urine Bilirubin Urine Urobilinogen Ur Leukocyte Esterase Urine RBC Urine WBC Micro UA Comment Ur Microscopic Review Urine Culture Comments Blood Type Antibody Screen MTS Gel Crossmatch Bld Prod Order Comment Microbiology 01/17/18 15:32 Blood - Line Aerobic Blood Culture - Preliminary No growth in 1 day 01/17/18 15:32 Blood - Line Anaerobic Blood Culture - Preliminary No growth in 1 day 01/17/18 15:32 Blood - Line Aerobic Blood Culture - Preliminary No growth in 1 day 01/17/18 15:32 Blood - Line Anaerobic Blood Culture - Preliminary No growth in 1 day - Imaging Impressions Chest X-Ray 01/17/18 14:41 CONCLUSION: Cardiomegaly with moderate elevation of the right hemidiaphragm. Possible trace pleural effusion on the left. Chest CTA 01/17/18 14:42 CONCLUSION: 1. No evidence of pulmonary embolism. 2. Moderate-sized left pleural effusion and tiny right pleural effusion. 3. Bibasilar atelectasis and/or infiltrates. 4. Left axillary mass is stable. 5. Diffuse edema is noted throughout the left chest wall. 6. At least 2 ribs on the left (first and fourth) are sclerotic raising the possibility of metastatic disease. 7. Coronary artery calcifications. 8. Degenerative changes throughout the thoracic spine. Assessment and Plan - Assessment (1) Metastatic squamous cell carcinoma Code(s): C79.9 - Secondary malignant neoplasm of unspecified site Status: Acute Plan: Stage IV metastatic SCC undergoing chemo and XRT metastatic disease involving left arm/lymphedema, left chest/abdomen wall chemotherapy and radiation are on hold pt remains aggressive and wants therapy. Acute on chronic anemia. acute blood loss from gib. gastric and duodenal ulcerations etoh abuse Pt is 72 yo with stage 4 metastatic SCC felt to be lung primary. Had been undergoing chemoradiation. Pt has had multiple admissions recently for etoh abuse, acute gib, and pain and ulceration/cellulitis of left arm. Pt was just discharged this past weekend to snf after being admitted to ICU for acute GIB and hypotension. That admission was from 01/02 until 01/15. Pt underwent EGD on 01/03 )- The esophagus this appeared to be unremarkable and within normal limits - Small hiatal hernia with a linear ulceration in the gastric cardia possibly representing a Romie ulcer, no visible vessel, no active bleeding this was biopsied - The duodenum there were multiple ulcerations noted in the duodenal bulb and the descending duodenum most were superficial and clean based one was actively bleeding just distal to the ampulla a small vessel was noted and so a clip was placed and no further bleeding was noted biopsies were taken from the ulcer sites - Pt underwent repeat EGD (01/08) --> Mild gastritis and two duodenal ulcers with active bleeding s/p clipping. Pt required blood transfusions of 12 units from 01/02-01/15 admission. He underwent bleeding scan on 01/14 negative for bleeding and so was sent to snf. During the last hospitalization he was also treated for afib with rvr and copd exacerbations. Now pt presents back with sob and left arm pain. Hgb noted to be 5 again. ED ordered 3 units blood. GI consulted. egd today s/p 3 units prbc 01/17 npo ivf 3 units blood ordered iv ppi gtt severe left arm pain from lymphedema/tumor/ulceration....prn norco. morphine not working. try dilaudid. discussed bp limitations with pt. also addressed code status and comfort care. He desires continued aggressive approach and full code. COPD cont nebs and o2. cont steroid taper AFIB no anticoagulation due to bleeding. (2) GIB (gastrointestinal bleeding) Code(s): K92.2 - Gastrointestinal hemorrhage, unspecified Status: Acute (3) Gastric ulceration Code(s): K25.9 - Gastric ulcer, unspecified as acute or chronic, without hemorrhage or perforation Status: Acute (4) Duodenal ulceration Code(s): K26.9 - Duodenal ulcer, unspecified as acute or chronic, without hemorrhage or perforation Status: Acute (5) COPD (chronic obstructive pulmonary disease) Code(s): J44.9 - Chronic obstructive pulmonary disease, unspecified Status: Chronic (6) Afib Code(s): I48.91 - Unspecified atrial fibrillation Status: Chronic
[2018-01-18] MEDS ORDERED: HYDROmorphone PF Inj 2 MG/ML Vial IV.PUSH ONE (11:30)
[2018-01-18] MEDS ORDERED: Morphine Inj 4 MG/ML Vial IV.PUSH ONE (11:45)
[2018-01-18] MEDS ORDERED: Phenylephrine/NS 1000 MCG/10ML Syringe IV.PUSH ONE (12:00)
--- NOTE | 2018-01-18 12:41 | P.PCN ---
Date of procedure: 01/18/18 Pre-op diagnosis: GI bleed, history of duodenal ulcers Procedure: PROCEDURE PERFORMED EGD with clip placements, epinephrine injection, cautery PROCEDURE: The procedure, risks and benefits were discussed with Patient/POA and informed consent was obtained. Anesthesia sedated Patient with Diprivan. Patient was placed in the left lateral decubitus position. EGD: The Pentax videoscope was introduced through the oropharynx and advanced to the second portion of the duodenum under direct visualization. Retroflexion was performed in the stomach. FINDINGS: The esophagus this appeared to be unremarkable with normal limits The stomach there was a large amount of occult blood in the stomach this was suctioned overall it was a limited evaluation due to still blood in the stomach but no active bleeding was noted and no ulcers or erosions The duodenum there was a large fresh clot noted in the duodenal sweep this was removed using a snare underneath the clot was the old clip noted from prior evaluation also noted was a visible vessel actively bleeding another clip was placed but this was not sufficient to close up the artery which was within an ulcer and so 8 cc of epinephrine was injected and then cautery was performed still there was leakage and oozing another 3 clips were applied to the area still there was oozing and leaking of blood ESTIMATED BLOOD LOSS: About 50 cc SPECIMENS REMOVED: None COMPLICATIONS: None IMPRESSION: Bleeding duodenal ulcers PLAN: Patient to go to interventional radiology for embolization I have already called IR and they are aware to bring him down Continue with current supportive care which includes IV Protonix, avoid anticoagulation, avoid NSAIDs and aspirin, Monitor labs closely and transfuse as needed Anesthesia: MAC Surgeon: Carlos Wilder Condition: stable Disposition: other (IR)
[2018-01-18] MEDS ORDERED: *Ondansetron Inj 4 MG/2 ML Vial PERIprocedural Use ONLY ONE (12:58)
[2018-01-18] MEDS ORDERED: *morphine SULFATE 10 MG/ML PERIprocedure ONLY ONE (13:03)
[2018-01-18] MEDS ORDERED: fentaNYL Citrate Inj 250 MCG/5 ML Ampul ONE (13:54)
[2018-01-18] MEDS ORDERED: ceFAZolin 2 GM IV; once IV.SIG ONE (14:15)
--- NOTE | 2018-01-18 16:15 | P.RAD ---
Post Procedure Progress Note - Pre Procedure Diagnosis (1) Anemia - Post Procedure Diagnosis (1) Anemia - Procedure Information Supervising Radiologist: Naeem Manriquez MD Anesthesia: Conscious Sedation - Plan of Activity Patient to Unit: Nursing Unit Patient Condition: Good See PACS Report for procedural detail/treatment. Vascular - Arterial Procedure Abdominal Procedure: Embolization (sucessful gda embolization)
--- NOTE | 2018-01-18 17:23 | ECG ---
Date Performed: 01/17/2018 Time Performed: 14:42:57 PTAGE: 72 years EKG: LIKELY Sinus rhythm , THOUGH P WAVES ARE DIFFICULT TO APPRECIATE NONSPECIFIC T-WAVE ABNORMALITY SUBTANTIAL BASELINE ARTIF ACT Compared to previous tracing, likely sinus rhythm has replaced atrial fibrillation. Previously se en diffuse ST changes have improved ABNORMAL ECG PREVIOUS TRACING : 01/12/2018 23.21 DOCTOR: Justin Reyez Interpretating Date/Time 01/18/2018 17:22:06
[2018-01-19] MEDS: HYDROmorphone PF Inj 2 MG/ML Vial IV.PUSH PRN ×4 (00:30→17:29)
[2018-01-19] MEDS: Sod Chloride 0.9% Inj 1,000 ML IV.CONT SCH ×3 (00:36→17:36)
[2018-01-19 08:11] LABS: Hemoglobin 8.7 gm/dL (13.0-17.0); Mean Corpuscular HGB Conc 34.9 % (32.0-36.0); Mean Corpuscular Hemoglobin 31.1 pg (27.0-34.0); Mean Corpuscular Volume 89.2 fL (80.0-100.0); Platelet Count 48 th/mm3 (150-450); Red Cell Distribution Width 16.2 % (11.6-17.2); White Blood Count 7.3 th/mm3 (4.0-11.0)
[2018-01-19] MEDS: predniSONE 20 MG Tablet PO SCH (08:25)
[2018-01-19] MEDS: Senna/Docusate Sodium 8.6/50 MG Tablet PO SCH ×2 (08:25→20:14)
[2018-01-19 08:46] LABS: Albumin 1.7 g/dL (3.4-5.0); Anion Gap 8 meq/L (5-15); Aspartate Aminotransferase 50 U/L (15-37); Blood Urea Nitrogen 42 mg/dL (7-18); Calcium 7.6 mg/dL (8.5-10.1); Carbon Dioxide 26.3 meq/L (21.0-32.0); Chloride 106 meq/L (98-107); Glomerular Filtration Rate Greater Than 89 mL/min (>89); Glucose,Random 92 mg/dL (74-106); Potassium 4.4 meq/L (3.5-5.1); Sodium 140 meq/L (136-145)
[2018-01-19 08:47] LABS: Alanine Aminotransferase 15 U/L (12-78)
[2018-01-19 08:50] LABS: Alkaline Phosphatase 48 U/L (45-117); Total Protein 3.9 g/dL (6.4-8.2)
[2018-01-19 09:08] LABS: Lymphocytes 2 % (9-44); Metamyelocytes 1 % (0-1); Monocytes 5 % (0-8); Myelocytes 3 % (0-0); Platelet Morphology Normal (Normal)
--- NOTE | 2018-01-19 09:40 | IR ---
EXAM DATE: 01/18/2018 12:00 AM EDT AGE/SEX: 72 years / Male INDICATIONS: Patient presents with bleeding duodenal ulcers and history of GI bleed. CLINICAL DATA: This is the patient's initial encounter. Patient reports that signs and symptoms have been present for 2 days and indicates a pain score of 9/10. MEDICAL/SURGICAL HISTORY: Chronic obstructive pulmonary disease. Gastroesophageal reflux disea se. Hypertension. Alcohol dependence, anxiety, Barretts Esophagus, high cholesterol, hypothyroidism , hyperlipidemia, lymphedema of left upper extremity, peripheral artery disease, skin cancer Angiopl asty. Hip replacement, hernia repair, shoulder surgery, colonoscopy COMPARISON: No prior exams available for comparison. FLUORO TIME (min): 22.2 IMAGE SERIES: 26 ACCESS SITE: Right femoral artery SEDATION TIME (min): 75 CONTRAST (cc): 75cc Visipaque (iodixanol) MEDICATION(S): 1mg midazolam (Versed) IV ; 50mcg fentanyl (Sublimaze) IV ; ; ; DEVICE(S): Gastroduodenal artery Gelfoam ; Gastroduodenal artery Interlock coil [id number] ; Gastroduodenal artery Interlock coil [id number] ; ; ; ; . . PROCEDURE : 1. Ultrasound-guided puncture of the access site. 2. Conscious sedation with continuous EKG and Oximetry monitoring. 3. Angiography of the celiac axis 4. Angiography of the common hepatic artery 5. Angiography of the gastroduodenal artery 6. Embolization of gastroduodenal artery with coils and Gelfoam The risks, benefits and alternatives to the procedure were explained and verbal and written consent w as obtained. The site was prepped in sterile fashion. Full sterile technique was used, including ca p, mask, sterile gloves and gown and a large sterile sheet. Hand hygiene and 2% chlorhexidine and/or betadine/alcohol prep was utilized per protocol for cutaneous antisepsis. Sterile gel and sterile p robe cover were utilized for ultrasound guidance. The skin and subcutaneous tissues were infiltrated with local anesthetic solution. With ultrasound and fluoroscopic guidance the selected artery was punctured and a vascular sheath was placed. 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 A straight catheter was navigated into th e celiac artery and angiography was performed to demonstrate this anatomy. Following this the cathete r was advanced into the common hepatic artery where this was left in place. Using a microcatheter the gastroduodenal artery was catheterized and embolization was performed with Gelfoam and coils to comp lete stasis. The puncture site was closed with manual pressure and hemostasis was obtained. The patient tolerated the procedure well and there were no complications. Conscious sedation was performed with the prescribed dosages and duration as above in the presence of an independent trained radiology nurse to assist in the monitoring of the patient. EKG and oximetry remained stable throughout the procedure. CONCLUSION: 1. Uncomplicated embolization of the gastroduodenal artery Electronically signed by: Naeem Manriquez MD 01/19/2018 9:39 AM EDT
--- NOTE | 2018-01-19 10:05 | P.PNIM ---
Subjective Interval history: pt says dilaudid helped Physical Exam Vital signs: Vital Signs 01/18/18 12:45 01/18/18 12:50 01/18/18 13:00 Temperature 97.8 F Pulse Rate 94 H 92 H 92 H Respiratory Rate 20 20 20 Blood Pressure 88/55 L 98/53 L 98/59 L Pulse Oximetry 100 100 99 01/18/18 13:10 01/18/18 13:20 01/18/18 13:30 Temperature Pulse Rate 92 H 92 H 94 H Respiratory Rate 20 20 Blood Pressure 93/51 L 93/51 L 103/50 L Pulse Oximetry 100 99 01/18/18 13:35 01/18/18 13:40 01/18/18 13:50 Temperature 97.7 F Pulse Rate 92 H 92 H 92 H Respiratory Rate 20 20 Blood Pressure 103/50 L 100/52 L 99/54 L Pulse Oximetry 100 98 01/18/18 16:20 01/18/18 16:35 01/18/18 16:50 Temperature 98.5 F 98.5 F 98.6 F Pulse Rate 92 H 80 76 Respiratory Rate 18 20 20 Blood Pressure 146/58 H 127/85 118/84 Pulse Oximetry 96 94 L 94 L 01/18/18 17:05 01/18/18 17:20 01/18/18 17:40 Temperature 98.5 F 97.9 F 97.9 F Pulse Rate 93 H 96 H Respiratory Rate 20 18 18 Blood Pressure 102/53 L 105/69 103/64 Pulse Oximetry 93 L 99 95 01/18/18 18:00 01/18/18 20:00 01/18/18 20:01 Temperature 97.9 F Pulse Rate 96 H 98 H 103 H Respiratory Rate 17 18 Blood Pressure 121/54 L Pulse Oximetry 100 99 01/19/18 00:00 01/19/18 00:34 01/19/18 04:00 Temperature 98.3 F 97.4 F L Pulse Rate 98 H 101 H 101 H Respiratory Rate 20 20 Blood Pressure 96/59 L 123/69 Pulse Oximetry 98 100 01/19/18 05:21 01/19/18 06:00 01/19/18 08:00 Temperature 98.1 F Pulse Rate 105 H 101 H 102 H Respiratory Rate 18 20 Blood Pressure 123/73 Pulse Oximetry 100 01/19/18 08:09 Temperature Pulse Rate 98 H Respiratory Rate 20 Blood Pressure Pulse Oximetry Intake & Output 01/18/18 01/19/18 01/19/18 18:59 06:59 18:59 Intake Total 1713 / 1713 888 / 888 Output Total 875 / 875 760 / 760 Balance 838 / 838 128 / 128 Weight 99.9 kg Intake: IV 680 / 680 888 / 888 Protonix Inj 80 MG In NS Inj 100 / 100 100 ML @ 10 mls/hr IV.CONT [facility] Rx#:[id number] NS Inj 1,000 ML @ 84 mls/hr IV. 500 / 500 888 / 888 CONT .[id number] [facility] Rx#:[id number] NS Inj 250 ML @ 15 mls/hr IV. 30 / 30 SIG ONCE [facility] Rx#:[id number] Ancef 2 GM Premix Inj 2 gm In 50 / 50 50 ml @ 100 mls/hr IV.SIG NOW ONE Rx#:[id number] Oral 0 / 0 Anesthesia Amount 800 / 800 Intake (Blood Product) Amt 233 / 233 Plt Pheresis A Leukoreduced 233 / 233 Unit [id number] Rbc As-3 Leukoreduced Unit 0 / 0 [id number] Rbc As-3 Leukoreduced Unit 0 / 0 [id number] Output: Urine 525 / 525 760 / 760 Estimated Blood Loss 350 / 350 Other: # Incontinent Voids 1 Date of Last Bowel Movement 01/17/18 01/19/18 # Bowel Movements 0 heart reg lung cta abd s/nt ext left arm lymphedema/swelling and metastatic nodules] on left arm/chest and abdomen wall. Results - Labs CBC & Chem 7: 01/19/18 07:25 01/19/18 07:25 Laboratory Results - last 24 hr 01/18/18 01/18/18 01/19/18 12:47 13:21 07:25 WBC 7.3 RBC 2.80 L Hgb 8.7 L Hct 25.0 L MCV 89.2 MCH 31.1 MCHC 34.9 RDW 16.2 Plt Count 48 L D MPV 8.0 Prelim Diff (Auto) Manual diff required WBC Differential Manual diff final Seg Neuts % (Manual) 76 H Band Neuts % (Manual) 13 H Lymphocytes % (Manual) 2 L Monocytes % (Manual) 5 Metamyelocytes % (Man) 1 Myelocytes % (Man) 3 H Abs Neuts (Manual) 6.8 Differential Comment . Platelet Estimate Low L Platelet Morphology Normal Sodium Potassium Chloride Carbon Dioxide Anion Gap BUN Creatinine Estimated GFR Random Glucose Calcium Total Bilirubin AST ALT Alkaline Phosphatase Total Protein Albumin MTS Gel Crossmatch See Detail Bld Prod Order Comment 01/19/18 07:25 WBC RBC Hgb Hct MCV MCH MCHC RDW Plt Count MPV Prelim Diff (Auto) WBC Differential Seg Neuts % (Manual) Band Neuts % (Manual) Lymphocytes % (Manual) Monocytes % (Manual) Metamyelocytes % (Man) Myelocytes % (Man) Abs Neuts (Manual) Differential Comment Platelet Estimate Platelet Morphology Sodium 140 Potassium 4.4 Chloride 106 Carbon Dioxide 26.3 Anion Gap 8 BUN 42 H Creatinine 0.71 Estimated GFR Greater than 89 Random Glucose 92 Calcium 7.6 L Total Bilirubin 0.5 AST 50 H ALT 15 Alkaline Phosphatase 48 Total Protein 3.9 L Albumin 1.7 L MTS Gel Crossmatch Bld Prod Order Comment Microbiology 01/17/18 15:32 Blood - Line Aerobic Blood Culture - Preliminary No growth in 1 day 01/17/18 15:32 Blood - Line Anaerobic Blood Culture - Preliminary No growth in 1 day 01/17/18 15:32 Blood - Line Aerobic Blood Culture - Preliminary No growth in 1 day 01/17/18 15:32 Blood - Line Anaerobic Blood Culture - Preliminary No growth in 1 day - Imaging Impressions Abdomen Arteriogram 01/18/18 00:00 CONCLUSION: 1. Uncomplicated embolization of the gastroduodenal artery Assessment and Plan - Assessment (1) Metastatic squamous cell carcinoma Code(s): C79.9 - Secondary malignant neoplasm of unspecified site Status: Acute Plan: Stage IV metastatic SCC undergoing chemo and XRT metastatic disease involving left arm/lymphedema, left chest/abdomen wall chemotherapy and radiation are on hold pt remains aggressive and wants therapy. Acute on chronic anemia. acute blood loss from gib. gastric and duodenal ulcerations etoh abuse Pt is 72 yo with stage 4 metastatic SCC felt to be lung primary. Had been undergoing chemoradiation. Pt has had multiple admissions recently for etoh abuse, acute gib, and pain and ulceration/cellulitis of left arm. Pt was just discharged this past weekend to snf after being admitted to ICU for acute GIB and hypotension. That admission was from 01/02 until 01/15. Pt underwent EGD on 01/03 )- The esophagus this appeared to be unremarkable and within normal limits - Small hiatal hernia with a linear ulceration in the gastric cardia possibly representing a Romie ulcer, no visible vessel, no active bleeding this was biopsied - The duodenum there were multiple ulcerations noted in the duodenal bulb and the descending duodenum most were superficial and clean based one was actively bleeding just distal to the ampulla a small vessel was noted and so a clip was placed and no further bleeding was noted biopsies were taken from the ulcer sites - Pt underwent repeat EGD (01/08) --> Mild gastritis and two duodenal ulcers with active bleeding s/p clipping. Pt required blood transfusions of 12 units from 01/02-01/15 admission. He underwent bleeding scan on 01/14 negative for bleeding and so was sent to snf. During the last hospitalization he was also treated for afib with rvr and copd exacerbations. Now pt presents back with sob and left arm pain. Hgb noted to be 5 again. ED ordered 3 units blood. EGD 01/18 bleeding ulcers. Pt sent to IR for GDA embolization s/p 3 units prbc 01/17 diet per GI ivf iv ppi gtt severe left arm pain from lymphedema/tumor/ulceration....prn norco. morphine not working. try dilaudid. discussed bp limitations with pt. also addressed code status and comfort care. He desires continued aggressive approach and full code. COPD cont nebs and o2. cont steroid taper AFIB no anticoagulation due to bleeding. (2) GIB (gastrointestinal bleeding) Code(s): K92.2 - Gastrointestinal hemorrhage, unspecified Status: Acute (3) Gastric ulceration Code(s): K25.9 - Gastric ulcer, unspecified as acute or chronic, without hemorrhage or perforation Status: Acute (4) Duodenal ulceration Code(s): K26.9 - Duodenal ulcer, unspecified as acute or chronic, without hemorrhage or perforation Status: Acute (5) COPD (chronic obstructive pulmonary disease) Code(s): J44.9 - Chronic obstructive pulmonary disease, unspecified Status: Chronic (6) Afib Code(s): I48.91 - Unspecified atrial fibrillation Status: Chronic
--- NOTE | 2018-01-19 14:23 | P.PNGI ---
Subjective Interval history: Awake no nausea no vomiting no acute abdominal pain beginning to get his appetite back and hungry for some soup <Shira Simons M - Last Filed: 01/19/18 14:19> Physical Exam Vital signs: Vital Signs 01/18/18 16:20 01/18/18 16:35 01/18/18 16:50 Temperature 98.5 F 98.5 F 98.6 F Pulse Rate 92 H 80 76 Respiratory Rate 18 20 20 Blood Pressure 146/58 H 127/85 118/84 Pulse Oximetry 96 94 L 94 L 01/18/18 17:05 01/18/18 17:20 01/18/18 17:40 Temperature 98.5 F 97.9 F 97.9 F Pulse Rate 93 H 96 H Respiratory Rate 20 18 18 Blood Pressure 102/53 L 105/69 103/64 Pulse Oximetry 93 L 99 95 01/18/18 18:00 01/18/18 20:00 01/18/18 20:01 Temperature 97.9 F Pulse Rate 96 H 98 H 103 H Respiratory Rate 17 18 Blood Pressure 121/54 L Pulse Oximetry 100 99 01/19/18 00:00 01/19/18 00:34 01/19/18 04:00 Temperature 98.3 F 97.4 F L Pulse Rate 98 H 101 H 101 H Respiratory Rate 20 20 Blood Pressure 96/59 L 123/69 Pulse Oximetry 98 100 01/19/18 05:21 01/19/18 06:00 01/19/18 08:00 Temperature 98.1 F Pulse Rate 105 H 101 H 102 H Respiratory Rate 18 20 Blood Pressure 123/73 Pulse Oximetry 100 01/19/18 08:09 01/19/18 12:00 Temperature 98.6 F Pulse Rate 98 H 100 H Respiratory Rate 20 20 Blood Pressure 117/72 Pulse Oximetry 98 Intake & Output 01/18/18 01/19/18 01/19/18 18:59 06:59 18:59 Intake Total 1713 / 1713 888 / 888 Output Total 875 / 875 760 / 760 Balance 838 / 838 128 / 128 Weight 99.9 kg Intake: IV 680 / 680 888 / 888 Protonix Inj 80 MG In NS Inj 100 / 100 100 ML @ 10 mls/hr IV.CONT CONT [facility] Rx#:[id number] NS Inj 1,000 ML @ 84 mls/hr IV. 500 / 500 888 / 888 CONT .[id number] [facility] Rx#:[id number] NS Inj 250 ML @ 15 mls/hr IV. 30 / 30 SIG ONCE [facility] Rx#:[id number] Ancef 2 GM Premix Inj 2 gm In 50 / 50 50 ml @ 100 mls/hr IV.SIG [facility] Rx#:[id number] Oral 0 / 0 Anesthesia Amount 800 / 800 Intake (Blood Product) Amt 233 / 233 Plt Pheresis A Leukoreduced 233 / 233 Unit [id number] Rbc As-3 Leukoreduced Unit 0 / 0 [id number] Rbc As-3 Leukoreduced Unit 0 / 0 [id number] Output: Urine 525 / 525 760 / 760 Estimated Blood Loss 350 / 350 Other: # Incontinent Voids 1 Date of Last Bowel Movement 01/17/18 01/19/18 # Bowel Movements 0 - Constitutional no acute distress, obese, chronically ill appearing, disheveled, cooperative - Routine HEENT Exam Head: Present: normocephalic ENT: Present: mucous membranes moist - Routine Respiratory Exam Present: accessory muscle use (No obvious shortness of breath at rest but does have low volumes) - Routine Cardiovascular Exam Present: S1, S2 - Routine Abdominal Exam Present: soft (Round, taut,), normoactive bowel sounds (Soft) <Shira Simons - Last Filed: 01/19/18 14:19> Vital signs: Vital Signs 01/18/18 16:20 01/18/18 16:35 01/18/18 16:50 Temperature 98.5 F 98.5 F 98.6 F Pulse Rate 92 H 80 76 Respiratory Rate 18 20 20 Blood Pressure 146/58 H 127/85 118/84 Pulse Oximetry 96 94 L 94 L 01/18/18 17:05 01/18/18 17:20 01/18/18 17:40 Temperature 98.5 F 97.9 F 97.9 F Pulse Rate 93 H 96 H Respiratory Rate 20 18 18 Blood Pressure 102/53 L 105/69 103/64 Pulse Oximetry 93 L 99 95 01/18/18 18:00 01/18/18 20:00 01/18/18 20:01 Temperature 97.9 F Pulse Rate 96 H 98 H 103 H Respiratory Rate 17 18 Blood Pressure 121/54 L Pulse Oximetry 100 99 01/19/18 00:00 01/19/18 00:34 01/19/18 04:00 Temperature 98.3 F 97.4 F L Pulse Rate 98 H 101 H 101 H Respiratory Rate 20 20 Blood Pressure 96/59 L 123/69 Pulse Oximetry 98 100 01/19/18 05:21 01/19/18 06:00 01/19/18 08:00 Temperature 98.1 F Pulse Rate 105 H 101 H 102 H Respiratory Rate 18 20 Blood Pressure 123/73 Pulse Oximetry 100 01/19/18 08:09 01/19/18 12:00 Temperature 98.6 F Pulse Rate 98 H 100 H Respiratory Rate 20 20 Blood Pressure 117/72 Pulse Oximetry 98 Intake & Output 01/18/18 01/19/18 01/19/18 18:59 06:59 18:59 Intake Total 1713 / 1713 888 / 888 Output Total 875 / 875 760 / 760 Balance 838 / 838 128 / 128 Weight 99.9 kg Intake: IV 680 / 680 888 / 888 Protonix Inj 80 MG In NS Inj 100 / 100 100 ML @ 10 mls/hr IV.CONT CONT [facility] Rx#:[id number] NS Inj 1,000 ML @ 84 mls/hr IV. 500 / 500 888 / 888 CONT .[id number] [facility] Rx#:[id number] NS Inj 250 ML @ 15 mls/hr IV. 30 / 30 SIG ONCE [facility] Rx#:[id number] Ancef 2 GM Premix Inj 2 gm In 50 / 50 50 ml @ 100 mls/hr IV.SIG [facility] Rx#:[id number] Oral 0 / 0 Anesthesia Amount 800 / 800 Intake (Blood Product) Amt 233 / 233 Plt Pheresis A Leukoreduced 233 / 233 Unit [id number] Rbc As-3 Leukoreduced Unit 0 / 0 [id number] Rbc As-3 Leukoreduced Unit 0 / 0 [id number] Output: Urine 525 / 525 760 / 760 Estimated Blood Loss 350 / 350 Other: # Incontinent Voids 1 Date of Last Bowel Movement 01/17/18 01/19/18 # Bowel Movements 0 <Carlos Wilder E - Last Filed: 01/19/18 15:39> Results - Labs CBC & Chem 7: 01/19/18 07:25 01/19/18 07:25 Laboratory Results - last 24 hr 01/18/18 01/19/18 01/19/18 13:21 07:25 07:25 WBC 7.3 RBC 2.80 L Hgb 8.7 L Hct 25.0 L MCV 89.2 MCH 31.1 MCHC 34.9 RDW 16.2 Plt Count 48 L D MPV 8.0 Prelim Diff (Auto) Manual diff required WBC Differential Manual diff final Seg Neuts % (Manual) 76 H Band Neuts % (Manual) 13 H Lymphocytes % (Manual) 2 L Monocytes % (Manual) 5 Metamyelocytes % (Man) 1 Myelocytes % (Man) 3 H Abs Neuts (Manual) 6.8 Differential Comment . Platelet Estimate Low L Platelet Morphology Normal Sodium 140 Potassium 4.4 Chloride 106 Carbon Dioxide 26.3 Anion Gap 8 BUN 42 H Creatinine 0.71 Estimated GFR Greater than 89 Random Glucose 92 Calcium 7.6 L Total Bilirubin 0.5 AST 50 H ALT 15 Alkaline Phosphatase 48 Total Protein 3.9 L Albumin 1.7 L MTS Gel Crossmatch See Detail Microbiology 01/17/18 15:32 Blood - Line Aerobic Blood Culture - Preliminary No growth in 2 days 01/17/18 15:32 Blood - Line Anaerobic Blood Culture - Preliminary No growth in 2 days 01/17/18 15:32 Blood - Line Aerobic Blood Culture - Preliminary No growth in 2 days 01/17/18 15:32 Blood - Line Anaerobic Blood Culture - Preliminary No growth in 2 days - Imaging Impressions Abdomen Arteriogram 01/18/18 00:00 CONCLUSION: 1. Uncomplicated embolization of the gastroduodenal artery <Shira Simons - Last Filed: 01/19/18 14:19> - Labs CBC & Chem 7: 01/19/18 07:25 01/19/18 07:25 Laboratory Results - last 24 hr 01/18/18 01/19/18 01/19/18 13:21 07:25 07:25 WBC 7.3 RBC 2.80 L Hgb 8.7 L Hct 25.0 L MCV 89.2 MCH 31.1 MCHC 34.9 RDW 16.2 Plt Count 48 L D MPV 8.0 Prelim Diff (Auto) Manual diff required WBC Differential Manual diff final Seg Neuts % (Manual) 76 H Band Neuts % (Manual) 13 H Lymphocytes % (Manual) 2 L Monocytes % (Manual) 5 Metamyelocytes % (Man) 1 Myelocytes % (Man) 3 H Abs Neuts (Manual) 6.8 Differential Comment . Platelet Estimate Low L Platelet Morphology Normal Sodium 140 Potassium 4.4 Chloride 106 Carbon Dioxide 26.3 Anion Gap 8 BUN 42 H Creatinine 0.71 Estimated GFR Greater than 89 Random Glucose 92 Calcium 7.6 L Total Bilirubin 0.5 AST 50 H ALT 15 Alkaline Phosphatase 48 Total Protein 3.9 L Albumin 1.7 L MTS Gel Crossmatch See Detail Microbiology 01/17/18 15:32 Blood - Line Aerobic Blood Culture - Preliminary No growth in 2 days 01/17/18 15:32 Blood - Line Anaerobic Blood Culture - Preliminary No growth in 2 days 01/17/18 15:32 Blood - Line Aerobic Blood Culture - Preliminary No growth in 2 days 01/17/18 15:32 Blood - Line Anaerobic Blood Culture - Preliminary No growth in 2 days - Imaging Impressions Abdomen Arteriogram 01/18/18 00:00 CONCLUSION: 1. Uncomplicated embolization of the gastroduodenal artery <Carlos Wilder E - Last Filed: 01/19/18 15:39> Assessment and Plan - Plan 01/19/2018 patient is resting in the bed beginning to get appetite back again and waiting on some soup. Denies any current nausea vomiting or abdominal discomfort. Still has some generalized weakness and fatigue but no obvious bleeding hemoglobin 8.7. Will need to continue to monitor for the next day or 2 for any drop in hemoglobin patient is status post EGD on 01/18/2018, findings included a large amount of occult blood in the stomach which was suctioned out but no active bleeding was noted there was a fresh clot noted in the duodenum where there was an old clip and also a friable vessel bleeding from another clip that had been placed. Patient had 8 cc of epinephrine injected and cautery but there was still some leakage and oozing after 3 clips applied patient was taken to IR for embolization to further control any bleeding he will will need to be monitored very closely and transfused as necessary Plan Diet full liquids, eat and drink slowly and sit up in the bed at almost 75-90 degrees After labs especially hemoglobin for any acute drop Monitor for any acute abdominal pain, transfuse as needed PPI Bowel regimen as needed Supportive care Patient was seen per myself and Dr. Wilder, note was written on his behalf <Shira Simons M - Last Filed: 01/19/18 14:19> - Plan Patient seen and examined Agree with above Continue with current supportive care Monitor labs <Carlos Wilder - Last Filed: 01/19/18 15:39>
[2018-01-20] MEDS: HYDROmorphone PF Inj 2 MG/ML Vial IV.PUSH PRN ×6 (00:16→23:46)
[2018-01-20] MEDS: Sod Chloride 0.9% Inj 1,000 ML IV.CONT SCH ×2 (01:00→09:18)
[2018-01-20 07:22] LABS: Baso % (Auto) 0.1 % (0.0-2.0); Eos % (Auto) 0.1 % (0.0-4.0); Lymph # (Auto) 0.1 th/mm3 (1.0-4.8); Lymph % (Auto) 2.1 % (9.0-44.0); Mean Corpuscular HGB Conc 34.5 % (32.0-36.0); Mean Corpuscular Hemoglobin 30.5 pg (27.0-34.0); Mean Corpuscular Volume 88.3 fL (80.0-100.0); Mean Platelet Volume 7.5 fL (7.0-11.0); Mono # (Auto) 0.3 th/mm3 (0.0-0.9); Mono % (Auto) 4.6 % (0.0-8.0); Neut # (Auto) 5.4 th/mm3 (1.8-7.7); Neut % (Auto) 93.1 % (16.0-70.0); Platelet Count 34 th/mm3 (150-450); Red Blood Count 2.26 mil/mm3 (4.50-5.90); Red Cell Distribution Width 15.4 % (11.6-17.2); White Blood Count 5.8 th/mm3 (4.0-11.0)
[2018-01-20 07:33] LABS: Anion Gap 7 meq/L (5-15); Blood Urea Nitrogen 31 mg/dL (7-18); Calcium 7.2 mg/dL (8.5-10.1); Carbon Dioxide 25.5 meq/L (21.0-32.0); Chloride 106 meq/L (98-107); Glomerular Filtration Rate Greater Than 89 mL/min (>89); Glucose,Random 121 mg/dL (74-106); Potassium 3.8 meq/L (3.5-5.1); Sodium 138 meq/L (136-145)
[2018-01-20 07:47] LABS: Hematocrit 19.9 % (39.0-51.0); Hemoglobin 6.9 gm/dL (13.0-17.0)
[2018-01-20 07:50] LABS: Total Protein 3.8 g/dL (6.4-8.2)
--- NOTE | 2018-01-20 09:13 | P.PNGI ---
Subjective Interval history: Patient resting comfortably, sitting up in bed utilizing aerosol breathing treatment. Denies abdominal pain or any obvious bleeding. Tolerating clear liquid diet without nausea or vomiting per patient. <Edith Quach - Last Filed: 01/20/18 09:23> Physical Exam Vital signs: Vital Signs 01/19/18 12:00 01/19/18 16:00 01/19/18 16:32 Temperature 98.6 F 97.9 F Pulse Rate 100 H 107 H 100 H Respiratory Rate 20 20 20 Blood Pressure 117/72 109/58 L Pulse Oximetry 98 98 98 01/19/18 19:40 01/19/18 20:00 01/19/18 21:39 Temperature 97.7 F Pulse Rate 100 H 108 H Respiratory Rate 20 22 19 Blood Pressure 114/61 Pulse Oximetry 96 01/20/18 00:00 01/20/18 03:53 01/20/18 04:00 Temperature 97.7 F 97.9 F Pulse Rate 102 H 97 H 86 Respiratory Rate 20 27 H 20 Blood Pressure 125/67 117/58 L Pulse Oximetry 94 L 24 L 01/20/18 04:28 01/20/18 08:00 01/20/18 08:50 Temperature 97.7 F Pulse Rate 101 H 101 H Respiratory Rate 18 20 16 Blood Pressure 153/68 H Pulse Oximetry 96 94 L Intake & Output 01/19/18 01/20/18 01/20/18 18:59 06:59 18:59 Intake Total 1480 / 1480 1240 / 1240 Output Total 600 / 600 300 / 300 Balance 880 / 880 940 / 940 Weight 99.4 kg Intake: IV 1000 / 1000 1000 / 1000 NS Inj 1,000 ML @ 84 mls/hr IV. 1000 / 1000 1000 / 1000 CONT .[id number] [facility] Rx#:[id number] Oral 480 / 480 240 / 240 Output: Urine 600 / 600 300 / 300 Other: Date of Last Bowel Movement 01/19/18 01/19/18 - Constitutional no acute distress - Routine HEENT Exam Head: Present: normocephalic - Routine Respiratory Exam Present: CTA bilaterally, wheezes. Absent: accessory muscle use Comments: Fine scattered wheezes noted - Routine Cardiovascular Exam Present: RRR, S1, S2, tachycardia Comments: heart rate 101 - Routine Abdominal Exam Present: soft, normoactive bowel sounds, distended. Absent: tenderness, rebound , guarding, firm - Routine Extremities Exam Present: edema Comments: Left upper extremity edematous with gauze dressing in place. Bilateral lower extremities without edema. - Routine Skin Exam Present: dry, warm - Routine Neurological Exam Present: alert, oriented X3 - Detailed Neurological Exam: Coma Scale Eye Opening: Spontaneous Verbal Response: Oriented Motor Response: Obey commands [place] Coma Scale Total: 15 - Routine Psychiatric Exam Present: normal affect, cooperative <Quach,Edith - Last Filed: 01/20/18 09:23> Vital signs: Vital Signs 01/19/18 19:40 01/19/18 20:00 01/19/18 21:39 Temperature 97.7 F Pulse Rate 100 H 108 H Respiratory Rate 20 22 19 Blood Pressure 114/61 Pulse Oximetry 96 01/20/18 00:00 01/20/18 03:53 01/20/18 04:00 Temperature 97.7 F 97.9 F Pulse Rate 102 H 97 H 86 Respiratory Rate 20 27 H 20 Blood Pressure 125/67 117/58 L Pulse Oximetry 94 L 24 L 01/20/18 04:28 01/20/18 08:00 01/20/18 08:50 Temperature 97.7 F Pulse Rate 101 H 101 H Respiratory Rate 18 20 16 Blood Pressure 153/68 H Pulse Oximetry 96 94 L 01/20/18 09:18 01/20/18 11:23 01/20/18 12:00 Temperature 97.6 F Pulse Rate 105 H Respiratory Rate 20 20 20 Blood Pressure 139/64 Pulse Oximetry 98 01/20/18 13:30 01/20/18 15:10 01/20/18 15:28 Temperature Pulse Rate 105 H Respiratory Rate 22 20 20 Blood Pressure Pulse Oximetry 98 01/20/18 16:04 01/20/18 16:25 01/20/18 16:37 Temperature 95.9 F L 96.0 F L 96.0 F L Pulse Rate 99 H Respiratory Rate 22 Blood Pressure 120/70 124/82 Pulse Oximetry Intake & Output 01/19/18 01/20/18 01/20/18 18:59 06:59 18:59 Intake Total 1480 / 1480 1240 / 1240 1000 / 1000 Output Total 600 / 600 300 / 300 Balance 880 / 880 940 / 940 1000 / 1000 Weight 99.4 kg Intake: IV 1000 / 1000 1000 / 1000 1000 / 1000 NS Inj 1,000 ML @ 84 mls/hr IV. 1000 / 1000 1000 / 1000 1000 / 1000 CONT .[id number] [facility] Rx#:[id number] Oral 480 / 480 240 / 240 Output: Urine 600 / 600 300 / 300 Other: Date of Last Bowel Movement 01/19/18 01/19/18 <Carlos Wilder - Last Filed: 01/20/18 17:03> Results - Labs CBC & Chem 7: 01/20/18 06:25 01/20/18 06:25 Laboratory Results - last 24 hr 01/19/18 01/20/18 01/20/18 07:25 06:25 06:25 WBC 5.8 RBC 2.26 L Hgb 6.9 L* Hct 19.9 L* MCV 88.3 MCH 30.5 MCHC 34.5 RDW 15.4 Plt Count 34 L MPV 7.5 Prelim Diff (Auto) Slide review pending Neut % (Auto) 93.1 H Lymph % (Auto) 2.1 L [place] % (Auto) 4.6 Eos % (Auto) 0.1 Baso % (Auto) 0.1 Neut # (Auto) 5.4 Lymph # (Auto) 0.1 L [place] # (Auto) 0.3 Eos # (Auto) 0.0 Baso # (Auto) 0.0 WBC Differential Manual diff final . Diff Scan Auto diff confirmed Seg Neuts % (Manual) 76 H Band Neuts % (Manual) 13 H Lymphocytes % (Manual) 2 L Monocytes % (Manual) 5 Metamyelocytes % (Man) 1 Myelocytes % (Man) 3 H Abs Neuts (Manual) 6.8 Differential Comment . Platelet Estimate Low L Platelet Morphology Normal Sodium 138 Potassium 3.8 Chloride 106 Carbon Dioxide 25.5 Anion Gap 7 BUN 31 H Creatinine 0.55 L Estimated GFR Greater than 89 Random Glucose 121 H Calcium 7.2 L* Prot Corrected Calcium 9.1 Total Protein 3.8 L Microbiology 01/17/18 15:32 Blood - Line Aerobic Blood Culture - Preliminary No growth in 2 days 01/17/18 15:32 Blood - Line Anaerobic Blood Culture - Preliminary No growth in 2 days 01/17/18 15:32 Blood - Line Aerobic Blood Culture - Preliminary No growth in 2 days 01/17/18 15:32 Blood - Line Anaerobic Blood Culture - Preliminary No growth in 2 days - Imaging Impressions Abdomen Arteriogram 01/18/18 00:00 CONCLUSION: 1. Uncomplicated embolization of the gastroduodenal artery <Edith Quach - Last Filed: 01/20/18 09:23> - Labs CBC & Chem 7: 01/20/18 06:25 01/20/18 06:25 Laboratory Results - last 24 hr 01/18/18 01/20/18 01/20/18 13:21 06:25 06:25 WBC 5.8 RBC 2.26 L Hgb 6.9 L* Hct 19.9 L* MCV 88.3 MCH 30.5 MCHC 34.5 RDW 15.4 Plt Count 34 L MPV 7.5 Prelim Diff (Auto) Slide review pending Neut % (Auto) 93.1 H Lymph % (Auto) 2.1 L [place] % (Auto) 4.6 Eos % (Auto) 0.1 Baso % (Auto) 0.1 Neut # (Auto) 5.4 Lymph # (Auto) 0.1 L [place] # (Auto) 0.3 Eos # (Auto) 0.0 Baso # (Auto) 0.0 WBC Differential . Diff Scan Auto diff confirmed Differential Comment . Sodium 138 Potassium 3.8 Chloride 106 Carbon Dioxide 25.5 Anion Gap 7 BUN 31 H Creatinine 0.55 L Estimated GFR Greater than 89 Random Glucose 121 H Calcium 7.2 L* Prot Corrected Calcium 9.1 Total Protein 3.8 L Blood Type Antibody Screen MTS Gel Crossmatch See Detail Bld Prod Order Comment 01/20/18 01/20/18 11:00 11:05 WBC RBC Hgb Hct MCV MCH MCHC RDW Plt Count MPV Prelim Diff (Auto) Neut % (Auto) Lymph % (Auto) [place] % (Auto) Eos % (Auto) Baso % (Auto) Neut # (Auto) Lymph # (Auto) [place] # (Auto) Eos # (Auto) Baso # (Auto) WBC Differential Diff Scan Differential Comment Sodium Potassium Chloride Carbon Dioxide Anion Gap BUN Creatinine Estimated GFR Random Glucose Calcium Prot Corrected Calcium Total Protein Blood Type A Negative Antibody Screen Negative MTS Gel Crossmatch See Detail Bld Prod Order Comment Microbiology 01/17/18 15:32 Blood - Line Aerobic Blood Culture - Preliminary No growth in 3 days 01/17/18 15:32 Blood - Line Anaerobic Blood Culture - Preliminary No growth in 3 days 01/17/18 15:32 Blood - Line Aerobic Blood Culture - Preliminary No growth in 3 days 01/17/18 15:32 Blood - Line Anaerobic Blood Culture - Preliminary No growth in 3 days <Carlos Wilder - Last Filed: 01/20/18 17:03> Assessment and Plan - Plan Anemia/GI bleed -01/20/2018 a.m. labs reveal hemoglobin 6.9 hematocrit 19.9 platelet count 34. Patient without any obvious signs of bleeding. Patient denies abdominal pain nausea or vomiting and denies rectal bleeding. We will continue to follow hemoglobin and hematocrit closely. Patient ordered for transfusion as required. Status post EGD on 01/18/2018 followed by embolization by IR. Plan: -Liquid diet as tolerated -Continue to monitor hemoglobin and hematocrit -Monitor for any obvious bleeding -Transfusion of packed RBCs and platelets as required -PPI as ordered,Avoid NSAIDS, ASA and Anticoagulation -Bowel regimen -Supportive care -Further recommendations to follow This patient has been seen by myself and Dr. Wilder and this note is written on his behalf - Attending Attestation Dr. Wilder <Edith Quach - Last Filed: 01/20/18 09:23> - Plan Patient seen and examined Agree with above Continue with current supportive care Monitor labs No clinical evidence of any active bleeding but the 6.9 hemoglobin of today is of major concern I would have done a repeat stat H&H to assess if this was a true and accurate reading and if it were I would have pursued a bleeding scan At this point we will await the blood transfusion and await results of hemoglobin tomorrow and based on that will make a decision as to whether to pursue bleeding scan or repeat endoscopy <Carlos Wilder E - Last Filed: 01/20/18 17:03>
[2018-01-20] MEDS: Senna/Docusate Sodium 8.6/50 MG Tablet PO SCH ×2 (09:17→20:49)
[2018-01-20] MEDS: predniSONE 20 MG Tablet PO SCH (09:17)
--- NOTE | 2018-01-20 09:23 | P.PNIM ---
Subjective Interval history: Pt complains of increased SOB this morning. He has not had any active GIB No melena or BRBPR but his Hgb has decreased again today Physical Exam Vital signs: Vital Signs 01/19/18 12:00 01/19/18 16:00 01/19/18 16:32 Temperature 98.6 F 97.9 F Pulse Rate 100 H 107 H 100 H Respiratory Rate 20 20 20 Blood Pressure 117/72 109/58 L Pulse Oximetry 98 98 98 01/19/18 19:40 01/19/18 20:00 01/19/18 21:39 Temperature 97.7 F Pulse Rate 100 H 108 H Respiratory Rate 20 22 19 Blood Pressure 114/61 Pulse Oximetry 96 01/20/18 00:00 01/20/18 03:53 01/20/18 04:00 Temperature 97.7 F 97.9 F Pulse Rate 102 H 97 H 86 Respiratory Rate 20 27 H 20 Blood Pressure 125/67 117/58 L Pulse Oximetry 94 L 24 L 01/20/18 04:28 01/20/18 08:00 01/20/18 08:50 Temperature 97.7 F Pulse Rate 101 H 101 H Respiratory Rate 18 20 16 Blood Pressure 153/68 H Pulse Oximetry 96 94 L Intake & Output 01/19/18 01/20/18 01/20/18 18:59 06:59 18:59 Intake Total 1480 / 1480 1240 / 1240 Output Total 600 / 600 300 / 300 Balance 880 / 880 940 / 940 Weight 99.4 kg Intake: IV 1000 / 1000 1000 / 1000 NS Inj 1,000 ML @ 84 mls/hr IV. 1000 / 1000 1000 / 1000 CONT .[id number] [facility] Rx#:[id number] Oral 480 / 480 240 / 240 Output: Urine 600 / 600 300 / 300 Other: Date of Last Bowel Movement 01/19/18 01/19/18 Narrative: General: NAD, AAOx3 Chest: CTA Cardiac: Regular Abd: +BS, soft ND/NT Ext: Left arm lymphedema/swelling and metastatic nodules on left arm/chest and abdomen wall. Results - Labs CBC & Chem 7: 01/20/18 06:25 01/20/18 06:25 Laboratory Results - last 24 hr 01/20/18 01/20/18 06:25 06:25 WBC 5.8 RBC 2.26 L Hgb 6.9 L* Hct 19.9 L* MCV 88.3 MCH 30.5 MCHC 34.5 RDW 15.4 Plt Count 34 L MPV 7.5 Prelim Diff (Auto) Slide review pending Neut % (Auto) 93.1 H Lymph % (Auto) 2.1 L [place] % (Auto) 4.6 Eos % (Auto) 0.1 Baso % (Auto) 0.1 Neut # (Auto) 5.4 Lymph # (Auto) 0.1 L [place] # (Auto) 0.3 Eos # (Auto) 0.0 Baso # (Auto) 0.0 WBC Differential . Diff Scan Auto diff confirmed Differential Comment . Sodium 138 Potassium 3.8 Chloride 106 Carbon Dioxide 25.5 Anion Gap 7 BUN 31 H Creatinine 0.55 L Estimated GFR Greater than 89 Random Glucose 121 H Calcium 7.2 L* Prot Corrected Calcium 9.1 Total Protein 3.8 L Microbiology 01/17/18 15:32 Blood - Line Aerobic Blood Culture - Preliminary No growth in 2 days 01/17/18 15:32 Blood - Line Anaerobic Blood Culture - Preliminary No growth in 2 days 01/17/18 15:32 Blood - Line Aerobic Blood Culture - Preliminary No growth in 2 days 01/17/18 15:32 Blood - Line Anaerobic Blood Culture - Preliminary No growth in 2 days - Imaging Impressions Abdomen Arteriogram 01/18/18 00:00 CONCLUSION: 1. Uncomplicated embolization of the gastroduodenal artery Assessment and Plan - Assessment (1) Metastatic squamous cell carcinoma Code(s): C79.9 - Secondary malignant neoplasm of unspecified site Status: Acute Plan: Stage IV metastatic SCC undergoing chemo and XRT metastatic disease involving left arm/lymphedema, left chest/abdomen wall - Chemotherapy and radiation are on hold - Pt remains aggressive and wants therapy. - Pt with severe left arm pain from lymphedema/tumor/ulceration - Cont. prn [place]. - Morphine not working. Dilaudid PRN. Discussed bp limitations - Also addressed code status and comfort care. He desires continued aggressive approach and full code. Acute on chronic anemia. acute blood loss from gib. gastric and duodenal ulcerations etoh abuse - Pt is 72 yo with stage 4 metastatic SCC felt to be lung primary. Had been undergoing chemoradiation. Pt has had multiple admissions recently for etoh abuse, acute gib, and pain and ulceration/cellulitis of left arm. Pt was just discharged this past weekend to snf after being admitted to ICU for acute GIB and hypotension. That admission was from 01/02 until 01/15. - Pt underwent EGD (01/03/18) --> the esophagus appeared to be unremarkable and within normal limits. small hiatal hernia with a linear ulceration in the gastric cardia possibly representing a Romie ulcer, no visible vessel, no active bleeding, but in the duodenum there were multiple ulcerations noted in the duodenal bulb and the descending duodenum most were superficial and clean based one was actively bleeding just distal to the ampulla a small vessel was noted and so a clip was placed and no further bleeding was noted biopsies were taken from the ulcer sites - Pt underwent repeat EGD (01/08/18) --> Mild gastritis and two duodenal ulcers with active bleeding s/p clipping. - Pt required blood transfusions of 12 units of PRBCs from 01/02-01/15 admission. He underwent bleeding scan on 01/14 negative for bleeding and so was sent to snf. - During the last hospitalization he was also treated for afib with rvr and copd exacerbations. - Pt presented back to the ED at [facility] on 01/17/18 with complaints of SOB and left arm pain. Hgb noted to be 5 again. ED ordered 3 units blood. - Pt underwent repeat EGD 01/18/18 which noted bleeding ulcers. Pt then underwent successful GDA embolization in IR. - Pt received s/p 3 units prbc 01/17 - Repeat H/H on 01/20 with again a decreased Hgb to 6.7 - Pt to be transfused with another 2 units PRBCs on 01/20/18. No noted active GIB - We will order a unit if Platelets as well. - Pt is on a liquid diet per GI - Cont. Protonix gtt COPD - Pt with increased SOB on 01/20. - Change Prednisone to Solu-Medrol 60mg Q6H - Change DUonebs to Q4H around the clock - We will give Lasix 20mg IV now and another 20mg IV in between two units of blood. AFIB - No anticoagulation due to bleeding. The exam, history, and the medical decision-making described in the above note were completed with the assistance of the mid-level provider. I reviewed and agree with the findings presented. I attest that I had a [id number] encounter with the patient on the same day, and personally performed and documented my assessment and findings in the medical record. pt continues to have drop in hgb despite egd x 4 with clips for duodenal ulcers and GDA embolization with IR> 2units today. More sob with copd flare. nebs/solumedrol. stop ivf. lasix. full code. (2) GIB (gastrointestinal bleeding) Code(s): K92.2 - Gastrointestinal hemorrhage, unspecified Status: Acute (3) Gastric ulceration Code(s): K25.9 - Gastric ulcer, unspecified as acute or chronic, without hemorrhage or perforation Status: Acute (4) Duodenal ulceration Code(s): K26.9 - Duodenal ulcer, unspecified as acute or chronic, without hemorrhage or perforation Status: Acute (5) COPD (chronic obstructive pulmonary disease) Code(s): J44.9 - Chronic obstructive pulmonary disease, unspecified Status: Chronic (6) Afib Code(s): I48.91 - Unspecified atrial fibrillation Status: Chronic
[2018-01-20] MEDS: MethylPREDNISolone Sod Succinate Inj 125 MG/2 ML Vial IV.PUSH SCH ×3 (12:39→23:45)
[2018-01-21] MEDS: HYDROmorphone PF Inj 2 MG/ML Vial IV.PUSH PRN ×3 (04:40→20:00)
[2018-01-21] MEDS: MethylPREDNISolone Sod Succinate Inj 125 MG/2 ML Vial IV.PUSH SCH ×4 (05:49→23:54)
[2018-01-21] MEDS: Senna/Docusate Sodium 8.6/50 MG Tablet PO SCH ×2 (08:06→19:59)
--- NOTE | 2018-01-21 09:51 | P.PNIM ---
Subjective Interval history: pt was sob last night and this AM. better with nebs Physical Exam Vital signs: Vital Signs 01/20/18 11:23 01/20/18 12:00 01/20/18 13:30 Temperature 97.6 F Pulse Rate 105 H Respiratory Rate 20 20 22 Blood Pressure 139/64 Pulse Oximetry 98 01/20/18 15:10 01/20/18 15:28 01/20/18 16:00 Temperature 97.6 F Pulse Rate 105 H 101 H Respiratory Rate 20 20 20 Blood Pressure 120/69 Pulse Oximetry 98 98 01/20/18 16:04 01/20/18 16:25 01/20/18 16:37 Temperature 95.9 F L 96.0 F L 96.0 F L Pulse Rate 99 H Respiratory Rate 22 Blood Pressure 120/70 124/82 Pulse Oximetry 01/20/18 17:36 01/20/18 17:49 01/20/18 18:02 Temperature 97.2 F L 97.1 F L 98.1 F Pulse Rate 91 H 91 H 97 H Respiratory Rate 20 20 22 Blood Pressure 135/77 147/75 H 173/73 H Pulse Oximetry 95 01/20/18 18:09 01/20/18 19:17 01/20/18 20:00 Temperature 98.2 F Pulse Rate 91 H 99 H Respiratory Rate 20 22 18 Blood Pressure 126/65 Pulse Oximetry 100 01/20/18 22:57 01/20/18 23:45 01/21/18 00:00 Temperature 98.1 F Pulse Rate 95 H 100 H Respiratory Rate 20 25 H 20 Blood Pressure 136/67 Pulse Oximetry 93 L 94 L 01/21/18 03:47 01/21/18 04:00 01/21/18 08:00 Temperature 97.6 F Pulse Rate 95 H 102 H Respiratory Rate 19 18 22 Blood Pressure 151/72 H Pulse Oximetry 93 L 01/21/18 08:18 Temperature Pulse Rate 74 Respiratory Rate 18 Blood Pressure Pulse Oximetry Intake & Output 01/20/18 01/21/18 01/21/18 18:59 06:59 18:59 Intake Total 1840 / 1840 1640 / 1640 Output Total 400 / 400 750 / 750 Balance 1440 / 1440 890 / 890 Weight 99.4 kg Intake: IV 1000 / 1000 NS Inj 1,000 ML @ 84 mls/hr IV. 1000 / 1000 CONT .[id number] [facility] Rx#:[id number] Oral 840 / 840 840 / 840 Anesthesia Amount 800 / 800 Intake (Blood Product) Amt 0 / 0 0 / 0 Rbc As-3 Leukoreduced Unit 0 / 0 [id number] Rbc As-3 Leukoreduced Unit 0 / 0 [id number] Output: Urine 400 / 400 400 / 400 Estimated Blood Loss 350 / 350 Other: # Incontinent Voids 1 Date of Last Bowel Movement 01/19/18 01/19/18 # Bowel Movements 0 heart reg lung course bs abd s/nt ext left arm lymphedema/nodular skin change and ulceration left chest/abdomen wall nodular changes Results - Labs CBC & Chem 7: 01/20/18 06:25 01/20/18 06:25 Laboratory Results - last 24 hr 01/18/18 01/20/18 01/20/18 13:21 11:00 11:05 Blood Type A Negative Antibody Screen Negative MTS Gel Crossmatch See Detail See Detail Bld Prod Order Comment Microbiology 01/17/18 15:32 Blood - Line Aerobic Blood Culture - Preliminary No growth in 3 days 01/17/18 15:32 Blood - Line Anaerobic Blood Culture - Preliminary No growth in 3 days 01/17/18 15:32 Blood - Line Aerobic Blood Culture - Preliminary No growth in 3 days 01/17/18 15:32 Blood - Line Anaerobic Blood Culture - Preliminary No growth in 3 days Assessment and Plan - Assessment (1) Metastatic squamous cell carcinoma Code(s): C79.9 - Secondary malignant neoplasm of unspecified site Status: Acute Plan: Stage IV metastatic SCC undergoing chemo and XRT metastatic disease involving left arm/lymphedema, left chest/abdomen wall - Chemotherapy and radiation are on hold - Pt remains aggressive and wants therapy. - Pt with severe left arm pain from lymphedema/tumor/ulceration - Cont. prn [place]. - Morphine not working. Dilaudid PRN. Discussed bp limitations - Also addressed code status and comfort care. He desires continued aggressive approach and full code. Acute on chronic anemia. acute blood loss from gib. gastric and duodenal ulcerations etoh abuse - Pt is 72 yo with stage 4 metastatic SCC felt to be lung primary. Had been undergoing chemoradiation. Pt has had multiple admissions recently for etoh abuse, acute gib, and pain and ulceration/cellulitis of left arm. Pt was just discharged this past weekend to snf after being admitted to ICU for acute GIB and hypotension. That admission was from 01/02 until 01/15. - Pt underwent EGD (01/03/18) --> the esophagus appeared to be unremarkable and within normal limits. small hiatal hernia with a linear ulceration in the gastric cardia possibly representing a Romie ulcer, no visible vessel, no active bleeding, but in the duodenum there were multiple ulcerations noted in the duodenal bulb and the descending duodenum most were superficial and clean based one was actively bleeding just distal to the ampulla a small vessel was noted and so a clip was placed and no further bleeding was noted biopsies were taken from the ulcer sites - Pt underwent repeat EGD (01/08/18) --> Mild gastritis and two duodenal ulcers with active bleeding s/p clipping. - Pt required blood transfusions of 12 units of PRBCs from 01/02-01/15 admission. He underwent bleeding scan on 01/14 negative for bleeding and so was sent to snf. - During the last hospitalization he was also treated for afib with rvr and copd exacerbations. - Pt presented back to the ED at [facility] on 01/17/18 with complaints of SOB and left arm pain. Hgb noted to be 5 again. ED ordered 3 units blood. - Pt underwent repeat EGD 01/18/18 which noted bleeding ulcers. Pt then underwent successful GDA embolization in IR. - Pt received s/p 3 units prbc 01/17 - Repeat H/H on 01/20 with again a decreased Hgb to 6.7 - Pt to be transfused with another 2 units PRBCs on 01/20/18. No noted active GIB. ordered a unit if Platelets as well. - Cont. Protonix gtt repeat cbc pending. cont current diet. COPD - Pt with increased SOB on 01/20. - Change Prednisone to Solu-Medrol 60mg Q6H - Change DUonebs to Q4H around the clock - AFIB - No anticoagulation due to bleeding. (2) GIB (gastrointestinal bleeding) Code(s): K92.2 - Gastrointestinal hemorrhage, unspecified Status: Acute (3) Gastric ulceration Code(s): K25.9 - Gastric ulcer, unspecified as acute or chronic, without hemorrhage or perforation Status: Acute (4) Duodenal ulceration Code(s): K26.9 - Duodenal ulcer, unspecified as acute or chronic, without hemorrhage or perforation Status: Acute (5) COPD (chronic obstructive pulmonary disease) Code(s): J44.9 - Chronic obstructive pulmonary disease, unspecified Status: Chronic (6) Afib Code(s): I48.91 - Unspecified atrial fibrillation Status: Chronic
[2018-01-21 11:08] LABS: Baso % (Auto) 0.1 % (0.0-2.0); Hematocrit 28.2 % (39.0-51.0); Hemoglobin 9.9 gm/dL (13.0-17.0); Lymph # (Auto) 0.1 th/mm3 (1.0-4.8); Lymph % (Auto) 1.2 % (9.0-44.0); Mean Corpuscular HGB Conc 35.1 % (32.0-36.0); Mean Corpuscular Hemoglobin 31.4 pg (27.0-34.0); Mean Corpuscular Volume 89.5 fL (80.0-100.0); Mean Platelet Volume 7.8 fL (7.0-11.0); Mono # (Auto) 0.2 th/mm3 (0.0-0.9); Neut # (Auto) 7.4 th/mm3 (1.8-7.7); Neut % (Auto) 96.7 % (16.0-70.0); Platelet Count 44 th/mm3 (150-450); Red Blood Count 3.15 mil/mm3 (4.50-5.90); Red Cell Distribution Width 15.1 % (11.6-17.2); White Blood Count 7.7 th/mm3 (4.0-11.0)
[2018-01-21 11:34] LABS: Anion Gap 8 meq/L (5-15); Blood Urea Nitrogen 29 mg/dL (7-18); Calcium 7.9 mg/dL (8.5-10.1); Carbon Dioxide 26.6 meq/L (21.0-32.0); Chloride 102 meq/L (98-107); Glomerular Filtration Rate Greater Than 89 mL/min (>89); Glucose,Random 143 mg/dL (74-106); Potassium 3.7 meq/L (3.5-5.1); Sodium 137 meq/L (136-145)
--- NOTE | 2018-01-21 12:16 | P.PNGI ---
Subjective Interval history: Patient resting in bed. Denies any noted bleeding. Tolerating diet well. <Edith Quach - Last Filed: 01/21/18 12:09> Physical Exam Vital signs: Vital Signs 01/20/18 13:30 01/20/18 15:10 01/20/18 15:28 Temperature Pulse Rate 105 H Respiratory Rate 22 20 20 Blood Pressure Pulse Oximetry 98 01/20/18 16:00 01/20/18 16:04 01/20/18 16:25 Temperature 97.6 F 95.9 F L 96.0 F L Pulse Rate 101 H 99 H Respiratory Rate 20 Blood Pressure 120/69 120/70 Pulse Oximetry 98 01/20/18 16:37 01/20/18 17:36 01/20/18 17:49 Temperature 96.0 F L 97.2 F L 97.1 F L Pulse Rate 91 H 91 H Respiratory Rate 22 20 20 Blood Pressure 124/82 135/77 147/75 H Pulse Oximetry 01/20/18 18:02 01/20/18 18:09 01/20/18 19:17 Temperature 98.1 F Pulse Rate 97 H 91 H Respiratory Rate 22 20 22 Blood Pressure 173/73 H Pulse Oximetry 95 01/20/18 20:00 01/20/18 22:57 01/20/18 23:45 Temperature 98.2 F 98.1 F Pulse Rate 99 H 95 H 100 H Respiratory Rate 18 20 25 H Blood Pressure 126/65 136/67 Pulse Oximetry 100 93 L 94 L 01/21/18 00:00 01/21/18 03:47 01/21/18 04:00 Temperature Pulse Rate 95 H Respiratory Rate 20 19 18 Blood Pressure Pulse Oximetry 01/21/18 08:00 01/21/18 08:18 01/21/18 11:14 Temperature 97.6 F Pulse Rate 102 H 74 70 Respiratory Rate 22 18 18 Blood Pressure 151/72 H Pulse Oximetry 93 L Intake & Output 01/20/18 01/21/18 01/21/18 18:59 06:59 18:59 Intake Total 1840 / 1840 1640 / 1640 Output Total 400 / 400 750 / 750 Balance 1440 / 1440 890 / 890 Weight 99.4 kg Intake: IV 1000 / 1000 NS Inj 1,000 ML @ 84 mls/hr IV. 1000 / 1000 CONT .[id number] [facility] Rx#:[id number] Oral 840 / 840 840 / 840 Anesthesia Amount 800 / 800 Intake (Blood Product) Amt 0 / 0 0 / 0 Rbc As-3 Leukoreduced Unit 0 / 0 [id number] Rbc As-3 Leukoreduced Unit 0 / 0 [id number] Output: Urine 400 / 400 400 / 400 Estimated Blood Loss 350 / 350 Other: # Incontinent Voids 1 Date of Last Bowel Movement 01/19/18 01/19/18 # Bowel Movements 0 - Constitutional no acute distress - Routine HEENT Exam Head: Present: normocephalic - Routine Respiratory Exam Absent: accessory muscle use, respiratory distress Comments: coarse breath sounds - Routine Cardiovascular Exam Present: RRR - Routine Abdominal Exam Present: soft, normoactive bowel sounds. Absent: tenderness - Routine Extremities Exam Absent: edema Comments: left upper extremity with continued swelling/lymphadenopathy - Routine Skin Exam Present: dry, warm - Routine Neurological Exam Present: alert, oriented X3 - Routine Psychiatric Exam Present: normal affect, cooperative <Quach,Edith - Last Filed: 01/21/18 12:09> Vital signs: Vital Signs 01/20/18 17:36 01/20/18 17:49 01/20/18 18:02 Temperature 97.2 F L 97.1 F L 98.1 F Pulse Rate 91 H 91 H 97 H Respiratory Rate 20 20 22 Blood Pressure 135/77 147/75 H 173/73 H Pulse Oximetry 95 01/20/18 18:09 01/20/18 19:17 01/20/18 20:00 Temperature 98.2 F Pulse Rate 91 H 99 H Respiratory Rate 20 22 18 Blood Pressure 126/65 Pulse Oximetry 100 01/20/18 22:57 01/20/18 23:45 01/21/18 00:00 Temperature 98.1 F Pulse Rate 95 H 100 H Respiratory Rate 20 25 H 20 Blood Pressure 136/67 Pulse Oximetry 93 L 94 L 01/21/18 03:47 01/21/18 04:00 01/21/18 08:00 Temperature 97.6 F Pulse Rate 95 H 108 H Respiratory Rate 19 18 22 Blood Pressure 151/72 H Pulse Oximetry 93 L 01/21/18 08:18 01/21/18 11:14 01/21/18 12:00 Temperature 97.9 F Pulse Rate 74 70 104 H Respiratory Rate 18 18 20 Blood Pressure 146/69 H Pulse Oximetry 94 L 01/21/18 15:42 Temperature Pulse Rate 84 Respiratory Rate 18 Blood Pressure Pulse Oximetry Intake & Output 01/20/18 01/21/18 01/21/18 18:59 06:59 18:59 Intake Total 1840 / 1840 1640 / 1640 Output Total 400 / 400 750 / 750 Balance 1440 / 1440 890 / 890 Weight 99.4 kg Intake: IV 1000 / 1000 NS Inj 1,000 ML @ 84 mls/hr IV. 1000 / 1000 CONT .[id number] [facility] Rx#:[id number] Oral 840 / 840 840 / 840 Anesthesia Amount 800 / 800 Intake (Blood Product) Amt 0 / 0 0 / 0 Rbc As-3 Leukoreduced Unit 0 / 0 [id number] Rbc As-3 Leukoreduced Unit 0 / 0 [id number] Output: Urine 400 / 400 400 / 400 Estimated Blood Loss 350 / 350 Other: # Incontinent Voids 1 Date of Last Bowel Movement 01/19/18 01/19/18 # Bowel Movements 0 <Carlos Wilder E - Last Filed: 01/21/18 16:54> Results - Labs CBC & Chem 7: 01/21/18 10:20 01/21/18 10:20 Laboratory Results - last 24 hr 01/18/18 01/20/18 01/20/18 13:21 11:00 11:05 WBC RBC Hgb Hct MCV MCH MCHC RDW Plt Count MPV Prelim Diff (Auto) Neut % (Auto) Lymph % (Auto) [place] % (Auto) Eos % (Auto) Baso % (Auto) Neut # (Auto) Lymph # (Auto) [place] # (Auto) Eos # (Auto) Baso # (Auto) WBC Differential Diff Scan Differential Comment Sodium Potassium Chloride Carbon Dioxide Anion Gap BUN Creatinine Estimated GFR Random Glucose Calcium Blood Type A Negative Antibody Screen Negative MTS Gel Crossmatch See Detail See Detail Bld Prod Order Comment 01/21/18 01/21/18 10:20 10:20 WBC 7.7 RBC 3.15 L Hgb 9.9 L D Hct 28.2 L MCV 89.5 MCH 31.4 MCHC 35.1 RDW 15.1 Plt Count 44 L MPV 7.8 Prelim Diff (Auto) Slide review pending Neut % (Auto) 96.7 H Lymph % (Auto) 1.2 L [place] % (Auto) 2.0 Eos % (Auto) 0.0 Baso % (Auto) 0.1 Neut # (Auto) 7.4 Lymph # (Auto) 0.1 L [place] # (Auto) 0.2 Eos # (Auto) 0.0 Baso # (Auto) 0.0 WBC Differential . Diff Scan Auto diff confirmed Differential Comment . Sodium 137 Potassium 3.7 Chloride 102 Carbon Dioxide 26.6 Anion Gap 8 BUN 29 H Creatinine 0.69 Estimated GFR Greater than 89 Random Glucose 143 H Calcium 7.9 L Blood Type Antibody Screen MTS Gel Crossmatch Bld Prod Order Comment Microbiology 01/17/18 15:32 Blood - Line Aerobic Blood Culture - Preliminary No growth in 4 days 01/17/18 15:32 Blood - Line Anaerobic Blood Culture - Preliminary No growth in 4 days 01/17/18 15:32 Blood - Line Aerobic Blood Culture - Preliminary No growth in 4 days 01/17/18 15:32 Blood - Line Anaerobic Blood Culture - Preliminary No growth in 4 days <Edith Quach - Last Filed: 01/21/18 12:09> - Labs CBC & Chem 7: 01/21/18 10:20 01/21/18 10:20 Laboratory Results - last 24 hr 01/20/18 01/20/18 01/21/18 11:00 11:05 10:20 WBC 7.7 RBC 3.15 L Hgb 9.9 L D Hct 28.2 L MCV 89.5 MCH 31.4 MCHC 35.1 RDW 15.1 Plt Count 44 L MPV 7.8 Prelim Diff (Auto) Slide review pending Neut % (Auto) 96.7 H Lymph % (Auto) 1.2 L [place] % (Auto) 2.0 Eos % (Auto) 0.0 Baso % (Auto) 0.1 Neut # (Auto) 7.4 Lymph # (Auto) 0.1 L [place] # (Auto) 0.2 Eos # (Auto) 0.0 Baso # (Auto) 0.0 WBC Differential . Diff Scan Auto diff confirmed Differential Comment . Puncture Site Patient Temperature O2 Saturation ABG pH ABG pCO2 ABG pO2 ABG HCO3 ABG O2 Content ABG Base Excess ABG Methemoglobin Brennen Test Hemoglobin Carboxyhemoglobin O2 Delivery Device Liter Flow Inspired O2 Critical Value Sodium Potassium Chloride Carbon Dioxide Anion Gap BUN Creatinine Estimated GFR POC Glucose Random Glucose Calcium Blood Type A Negative Antibody Screen Negative MTS Gel Crossmatch See Detail Bld Prod Order Comment 01/21/18 01/21/18 01/21/18 10:20 15:55 16:00 WBC RBC Hgb Hct MCV MCH MCHC RDW Plt Count MPV Prelim Diff (Auto) Neut % (Auto) Lymph % (Auto) [place] % (Auto) Eos % (Auto) Baso % (Auto) Neut # (Auto) Lymph # (Auto) [place] # (Auto) Eos # (Auto) Baso # (Auto) WBC Differential Diff Scan Differential Comment Puncture Site Right radial Patient Temperature 98.6 O2 Saturation 97 ABG pH 7.37 L ABG pCO2 40 ABG pO2 203 H ABG HCO3 22 ABG O2 Content 15.2 ABG Base Excess -2.1 L ABG Methemoglobin 1.3 Brennen Test Present Hemoglobin 10.9 L Carboxyhemoglobin 1.4 O2 Delivery Device Nrm Liter Flow 15.00 Inspired O2 100 Critical Value No Sodium 137 Potassium 3.7 Chloride 102 Carbon Dioxide 26.6 Anion Gap 8 BUN 29 H Creatinine 0.69 Estimated GFR Greater than 89 POC Glucose 154 H Random Glucose 143 H Calcium 7.9 L Blood Type Antibody Screen MTS Gel Crossmatch Bld Prod Order Comment Microbiology 01/17/18 15:32 Blood - Line Aerobic Blood Culture - Preliminary No growth in 4 days 01/17/18 15:32 Blood - Line Anaerobic Blood Culture - Preliminary No growth in 4 days 01/17/18 15:32 Blood - Line Aerobic Blood Culture - Preliminary No growth in 4 days 01/17/18 15:32 Blood - Line Anaerobic Blood Culture - Preliminary No growth in 4 days <Carlos Wilder - Last Filed: 01/21/18 16:54> Assessment and Plan - Plan Anemia/GI bleed -01/20/2018 a.m. labs reveal hemoglobin 6.9 hematocrit 19.9 platelet count 34. Patient without any obvious signs of bleeding. Patient denies abdominal pain nausea or vomiting and denies rectal bleeding. We will continue to follow hemoglobin and hematocrit closely. Patient ordered for transfusion as required. Status post EGD on 01/18/2018 followed by embolization by IR. 01/21/18-01/21/2018 a.m. labs reveal hemoglobin 9.9 hematocrit 28.2 platelet count 44. Patient denies any nausea vomiting or abdominal pain and there are no signs of obvious bleeding noted. Tolerating clear liquid diet well. We will continue to follow hemoglobin and hematocrit closely. Plan: -Clear liquid diet -Continue to monitor hemoglobin and hematocrit -Monitor for any obvious bleeding -Transfusion as needed -Continue PPI, avoid NSAIDs, aspirin and anticoagulation -Bowel regimen -Supportive care -Further recommendations to follow This patient has been seen by myself and Dr. Wilder in this note is written on his behalf - Attending Attestation Dr. Wilder <Edith Quach - Last Filed: 01/21/18 12:09> - Plan Patient seen and examined Agree with above Continue with current supportive care Monitor labs Hemoglobin stable post transfusion No active GI bleed Patient complains of shortness of breath and is going to be transferred to the ICU <Carlos Wilder - Last Filed: 01/21/18 16:54>
[2018-01-21 16:13] LABS: ABG Base Excess -2.1 mmol/L (-2-2); ABG PCO2 40 mmHg (38-42); ABG PO2 203 mmHg (61-120)
--- NOTE | 2018-01-21 18:04 | XR ---
EXAM DATE: 01/21/2018 3:59 PM EDT AGE/SEX: 72 years / Male INDICATIONS: Shortness of breath. CLINICAL DATA: This is the patient's initial encounter. Patient reports that signs and symptoms have been present for 1 day and indicates a pain score of 0/10. MEDICAL/SURGICAL HISTORY: . Hypertension. Lymphoma. Gastroesophageal reflux disease. Chronic ob structive pulmonary disease. . Angioplasty. Infusaport. COMPARISON: [facility], CHEST 1V SINGLE AP, 01/17/2018. . FINDINGS: Right IJ [id number] is present with tip overlapping the expected region of the SVC. Th ere is worsening left lung base opacity since the prior study from worsening pleural effusion and lef t lung base consolidation. Slight degree of perivascular pulmonary edema is also suspected. CONCLUSION: Worsening left lung base opacity most likely worsening pleural effusion and consolidation. Electronically signed by: Enriqueta Can MD 01/21/2018 6:03 PM EDT
[2018-01-21] MEDS ORDERED: Potassium Chloride 10 MEQ ER Capsule PO ONE (18:55)
[2018-01-22] MEDS ORDERED: Sodium Chloride 0.9% 2 ML Flush PRN IV.FLUSH (01:56)
[2018-01-22] MEDS: HYDROmorphone PF Inj 2 MG/ML Vial IV.PUSH PRN ×4 (04:47→23:45)
[2018-01-22] MEDS: MethylPREDNISolone Sod Succinate Inj 125 MG/2 ML Vial IV.PUSH SCH ×4 (05:09→23:45)
[2018-01-22 05:31] LABS: Baso % (Auto) 0.2 % (0.0-2.0); Hematocrit 27.2 % (39.0-51.0); Hemoglobin 9.6 gm/dL (13.0-17.0); Lymph # (Auto) 0.1 th/mm3 (1.0-4.8); Lymph % (Auto) 1.2 % (9.0-44.0); Mean Corpuscular HGB Conc 35.3 % (32.0-36.0); Mean Corpuscular Hemoglobin 31.1 pg (27.0-34.0); Mean Corpuscular Volume 88.2 fL (80.0-100.0); Mean Platelet Volume 7.4 fL (7.0-11.0); Mono # (Auto) 0.2 th/mm3 (0.0-0.9); Mono % (Auto) 2.1 % (0.0-8.0); Neut # (Auto) 7.2 th/mm3 (1.8-7.7); Neut % (Auto) 96.5 % (16.0-70.0); Platelet Count 37 th/mm3 (150-450); Red Blood Count 3.08 mil/mm3 (4.50-5.90); Red Cell Distribution Width 15.2 % (11.6-17.2); White Blood Count 7.5 th/mm3 (4.0-11.0)
[2018-01-22] MEDS: Furosemide 20 MG Tablet PO SCH ×2 (08:29→17:08)
[2018-01-22] MEDS: Senna/Docusate Sodium 8.6/50 MG Tablet PO SCH ×2 (08:30→21:01)
[2018-01-22] MEDS: Sodium Chloride 0.9% 2 ML Flush BID IV.FLUSH SCH ×2 (08:30→21:00)
[2018-01-22 08:34] LABS: Platelet Morphology Normal (Normal)
--- NOTE | 2018-01-22 10:16 | P.PNIM ---
Subjective Interval history: pt moved to ICU last night for acute resp distress. nrb. iv lasix with immediately over a liter out and began feeling better doing better overall this AM Physical Exam Vital signs: Vital Signs 01/21/18 11:14 01/21/18 12:00 01/21/18 15:42 Temperature 97.9 F Pulse Rate 70 104 H 84 Respiratory Rate 18 20 18 Blood Pressure 146/69 H Pulse Oximetry 94 L 01/21/18 19:37 01/21/18 20:00 01/21/18 20:32 Temperature 98.4 F Pulse Rate 108 H 110 H 119 H Respiratory Rate 19 17 28 H Blood Pressure Pulse Oximetry 96 97 01/21/18 21:00 01/21/18 21:01 01/21/18 22:00 Temperature Pulse Rate 108 H 110 H 93 H Respiratory Rate 18 25 H 10 L Blood Pressure 157/86 H 138/71 Pulse Oximetry 96 96 97 01/21/18 23:00 01/21/18 23:29 01/22/18 00:00 Temperature 98 F Pulse Rate 93 H 101 H 101 H Respiratory Rate 11 L 17 32 H Blood Pressure 134/69 Pulse Oximetry 97 96 01/22/18 00:01 01/22/18 01:00 01/22/18 02:00 Temperature Pulse Rate 111 H 100 H 100 H Respiratory Rate 45 H 14 12 Blood Pressure 119/64 119/60 161/81 H Pulse Oximetry 96 95 96 01/22/18 03:00 01/22/18 03:29 01/22/18 04:00 Temperature 98.1 F Pulse Rate 100 H 106 H 110 H Respiratory Rate 13 17 30 H Blood Pressure 153/79 H 146/87 H Pulse Oximetry 96 97 01/22/18 05:00 01/22/18 08:00 Temperature Pulse Rate 101 H 90 Respiratory Rate 16 22 Blood Pressure 131/65 Pulse Oximetry 95 94 L Intake & Output 01/21/18 01/22/18 01/22/18 18:59 06:59 18:59 Output Total 825 / 825 900 / 900 Balance -825 / -825 -900 / -900 Output: Urine 825 / 825 900 / 900 Other: Date of Last Bowel Movement 01/19/18 # Bowel Movements 1 oriented was labored with brushing teeth heart reg lung course bs ken left arm lymphedema/eroded ulceration bandaged left arm/chest/abd nodular skin mets Results - Labs CBC & Chem 7: 01/22/18 04:40 01/21/18 10:20 Laboratory Results - last 24 hr 01/20/18 01/21/18 01/21/18 11:05 10:20 10:20 WBC 7.7 RBC 3.15 L Hgb 9.9 L D Hct 28.2 L MCV 89.5 MCH 31.4 MCHC 35.1 RDW 15.1 Plt Count 44 L MPV 7.8 Prelim Diff (Auto) Slide review pending Neut % (Auto) 96.7 H Lymph % (Auto) 1.2 L [place] % (Auto) 2.0 Eos % (Auto) 0.0 Baso % (Auto) 0.1 Neut # (Auto) 7.4 Lymph # (Auto) 0.1 L [place] # (Auto) 0.2 Eos # (Auto) 0.0 Baso # (Auto) 0.0 WBC Differential . Diff Scan Auto diff confirmed Differential Comment . Platelet Estimate Platelet Morphology Puncture Site Patient Temperature O2 Saturation ABG pH ABG pCO2 ABG pO2 ABG HCO3 ABG O2 Content ABG Base Excess ABG Methemoglobin Brennen Test Hemoglobin Carboxyhemoglobin O2 Delivery Device Liter Flow Vent Setting Inspired O2 Critical Value Sodium 137 Potassium 3.7 Chloride 102 Carbon Dioxide 26.6 Anion Gap 8 BUN 29 H Creatinine 0.69 Estimated GFR Greater than 89 POC Glucose Random Glucose 143 H Calcium 7.9 L Nasal Screen MRSA (PCR) Bld Prod Order Comment 01/21/18 01/21/18 01/21/18 15:55 16:00 16:00 WBC RBC Hgb Hct MCV MCH MCHC RDW Plt Count MPV Prelim Diff (Auto) Neut % (Auto) Lymph % (Auto) [place] % (Auto) Eos % (Auto) Baso % (Auto) Neut # (Auto) Lymph # (Auto) [place] # (Auto) Eos # (Auto) Baso # (Auto) WBC Differential Diff Scan Differential Comment Platelet Estimate Platelet Morphology Puncture Site Right radial Cancelled Patient Temperature 98.6 Cancelled O2 Saturation 97 Cancelled ABG pH 7.37 L Cancelled ABG pCO2 40 Cancelled ABG pO2 203 H Cancelled ABG HCO3 22 Cancelled ABG O2 Content 15.2 Cancelled ABG Base Excess -2.1 L Cancelled ABG Methemoglobin 1.3 Cancelled Brennen Test Present Cancelled Hemoglobin 10.9 L Cancelled Carboxyhemoglobin 1.4 Cancelled O2 Delivery Device Nrm Cancelled Liter Flow 15.00 Cancelled Vent Setting Cancelled Inspired O2 100 Cancelled Critical Value No Cancelled Sodium Potassium Chloride Carbon Dioxide Anion Gap BUN Creatinine Estimated GFR POC Glucose 154 H Random Glucose Calcium Nasal Screen MRSA (PCR) Bld Prod Order Comment 01/21/18 01/22/18 17:00 04:40 WBC 7.5 RBC 3.08 L Hgb 9.6 L Hct 27.2 L MCV 88.2 MCH 31.1 MCHC 35.3 RDW 15.2 Plt Count 37 L MPV 7.4 Prelim Diff (Auto) Slide review pending Neut % (Auto) 96.5 H Lymph % (Auto) 1.2 L [place] % (Auto) 2.1 Eos % (Auto) 0.0 Baso % (Auto) 0.2 Neut # (Auto) 7.2 Lymph # (Auto) 0.1 L [place] # (Auto) 0.2 Eos # (Auto) 0.0 Baso # (Auto) 0.0 WBC Differential . Diff Scan Auto diff confirmed Differential Comment . Platelet Estimate Low L Platelet Morphology Normal Puncture Site Patient Temperature O2 Saturation ABG pH ABG pCO2 ABG pO2 ABG HCO3 ABG O2 Content ABG Base Excess ABG Methemoglobin Brennen Test Hemoglobin Carboxyhemoglobin O2 Delivery Device Liter Flow Vent Setting Inspired O2 Critical Value Sodium Potassium Chloride Carbon Dioxide Anion Gap BUN Creatinine Estimated GFR POC Glucose Random Glucose Calcium Nasal Screen MRSA (PCR) Not detected Bld Prod Order Comment Microbiology 01/17/18 15:32 Blood - Line Aerobic Blood Culture - Preliminary No growth in 4 days 01/17/18 15:32 Blood - Line Anaerobic Blood Culture - Preliminary No growth in 4 days 01/17/18 15:32 Blood - Line Aerobic Blood Culture - Preliminary No growth in 4 days 01/17/18 15:32 Blood - Line Anaerobic Blood Culture - Preliminary No growth in 4 days - Imaging Impressions Chest X-Ray 01/21/18 15:59 CONCLUSION: Worsening left lung base opacity most likely worsening pleural effusion and consolidation. Assessment and Plan - Assessment (1) Metastatic squamous cell carcinoma Code(s): C79.9 - Secondary malignant neoplasm of unspecified site Status: Acute Plan: Stage IV metastatic SCC undergoing chemo and XRT metastatic disease involving left arm/lymphedema, left chest/abdomen wall - Chemotherapy and radiation are on hold - Pt remains aggressive and wants therapy. - Pt with severe left arm pain from lymphedema/tumor/ulceration - Cont. prn [place]. - Morphine not working. Dilaudid PRN. Discussed bp limitations - Also addressed code status and comfort care. He desires continued aggressive approach and full code. Acute on chronic anemia. acute blood loss from gib. gastric and duodenal ulcerations etoh abuse - Pt is 72 yo with stage 4 metastatic SCC felt to be lung primary. Had been undergoing chemoradiation. Pt has had multiple admissions recently for etoh abuse, acute gib, and pain and ulceration/cellulitis of left arm. Pt was just discharged this past weekend to snf after being admitted to ICU for acute GIB and hypotension. That admission was from 01/02 until 01/15. - Pt underwent EGD (01/03/18) --> the esophagus appeared to be unremarkable and within normal limits. small hiatal hernia with a linear ulceration in the gastric cardia possibly representing a Romie ulcer, no visible vessel, no active bleeding, but in the duodenum there were multiple ulcerations noted in the duodenal bulb and the descending duodenum most were superficial and clean based one was actively bleeding just distal to the ampulla a small vessel was noted and so a clip was placed and no further bleeding was noted biopsies were taken from the ulcer sites - Pt underwent repeat EGD (01/08/18) --> Mild gastritis and two duodenal ulcers with active bleeding s/p clipping. - Pt required blood transfusions of 12 units of PRBCs from 01/02-01/15 admission. He underwent bleeding scan on 01/14 negative for bleeding and so was sent to snf. - During the last hospitalization he was also treated for afib with rvr and copd exacerbations. - Pt presented back to the ED at [facility] on 01/17/18 with complaints of SOB and left arm pain. Hgb noted to be 5 again. ED ordered 3 units blood. - Pt underwent repeat EGD 01/18/18 which noted bleeding ulcers. Pt then underwent successful GDA embolization in IR. - Pt received s/p 3 units prbc 01/17 - Repeat H/H on 01/20 with again a decreased Hgb to 6.7 - Pt to be transfused with another 2 units PRBCs on 01/20/18. No noted active GIB. ordered a unit if Platelets as well. - Cont. Protonix gtt cont liquid diet. cbc stable COPD -pt with copd exacerbation cont nebs/solumedrol became acutely sob and moved to ICU on 01/21...improved with iv lasix and diuresis - AFIB - No anticoagulation due to bleeding. (2) GIB (gastrointestinal bleeding) Code(s): K92.2 - Gastrointestinal hemorrhage, unspecified Status: Acute (3) Gastric ulceration Code(s): K25.9 - Gastric ulcer, unspecified as acute or chronic, without hemorrhage or perforation Status: Acute (4) Duodenal ulceration Code(s): K26.9 - Duodenal ulcer, unspecified as acute or chronic, without hemorrhage or perforation Status: Acute (5) COPD (chronic obstructive pulmonary disease) Code(s): J44.9 - Chronic obstructive pulmonary disease, unspecified Status: Chronic (6) Afib Code(s): I48.91 - Unspecified atrial fibrillation Status: Chronic
--- NOTE | 2018-01-22 12:11 | P.PNGI ---
Subjective Interval history: Patient laying supine in bed. Denies any noted bleeding. Tolerating diet well. Moved to ICU for increasing shortness of breath yesterday. States his breathing is better. <Edith Quach - Last Filed: 01/22/18 12:12> Physical Exam Vital signs: Vital Signs 01/21/18 15:42 01/21/18 19:37 01/21/18 20:00 Temperature Pulse Rate 84 108 H 110 H Respiratory Rate 18 19 17 Blood Pressure Pulse Oximetry 96 01/21/18 20:32 01/21/18 21:00 01/21/18 21:01 Temperature 98.4 F Pulse Rate 119 H 108 H 110 H Respiratory Rate 28 H 18 25 H Blood Pressure 157/86 H Pulse Oximetry 97 96 96 01/21/18 22:00 01/21/18 23:00 01/21/18 23:29 Temperature Pulse Rate 93 H 93 H 101 H Respiratory Rate 10 L 11 L 17 Blood Pressure 138/71 134/69 Pulse Oximetry 97 97 01/22/18 00:00 01/22/18 00:01 01/22/18 01:00 Temperature 98 F Pulse Rate 101 H 111 H 100 H Respiratory Rate 32 H 45 H 14 Blood Pressure 119/64 119/60 Pulse Oximetry 96 96 95 01/22/18 02:00 01/22/18 03:00 01/22/18 03:29 Temperature Pulse Rate 100 H 100 H 106 H Respiratory Rate 12 13 17 Blood Pressure 161/81 H 153/79 H Pulse Oximetry 96 96 01/22/18 04:00 01/22/18 05:00 01/22/18 08:00 Temperature 98.1 F Pulse Rate 110 H 101 H 94 H Respiratory Rate 30 H 16 22 Blood Pressure 146/87 H 131/65 Pulse Oximetry 97 95 94 L Intake & Output 01/21/18 01/22/18 01/22/18 18:59 06:59 18:59 Output Total 825 / 825 900 / 900 Balance -825 / -825 -900 / -900 Output: Urine 825 / 825 900 / 900 Other: Date of Last Bowel Movement 01/19/18 01/19/18 # Bowel Movements 1 - Constitutional no acute distress - Routine HEENT Exam Head: Present: normocephalic - Routine Respiratory Exam Present: accessory muscle use Comments: Coarse breath sounds bilaterally - Routine Cardiovascular Exam Present: RRR - Routine Abdominal Exam Present: soft, normoactive bowel sounds, distended. Absent: tenderness, guarding, firm - Routine Extremities Exam Present: edema Comments: Left upper extremity lymphedema present with bandage in place - Routine Skin Exam Present: dry, warm. Absent: jaundice - Routine Neurological Exam Present: alert, oriented X3 - Detailed Neurological Exam: Coma Scale Eye Opening: Spontaneous Verbal Response: Oriented Motor Response: Obey commands Grace Coma Scale Total: 15 - Routine Psychiatric Exam Present: normal affect, cooperative <QuachEdith - Last Filed: 01/22/18 12:12> Vital signs: Vital Signs 01/21/18 15:42 01/21/18 19:37 01/21/18 20:00 Temperature Pulse Rate 84 108 H 110 H Respiratory Rate 18 19 17 Blood Pressure Pulse Oximetry 96 01/21/18 20:32 01/21/18 21:00 01/21/18 21:01 Temperature 98.4 F Pulse Rate 119 H 108 H 110 H Respiratory Rate 28 H 18 25 H Blood Pressure 157/86 H Pulse Oximetry 97 96 96 01/21/18 22:00 01/21/18 23:00 01/21/18 23:29 Temperature Pulse Rate 93 H 93 H 101 H Respiratory Rate 10 L 11 L 17 Blood Pressure 138/71 134/69 Pulse Oximetry 97 97 01/22/18 00:00 01/22/18 00:01 01/22/18 01:00 Temperature 98 F Pulse Rate 101 H 111 H 100 H Respiratory Rate 32 H 45 H 14 Blood Pressure 119/64 119/60 Pulse Oximetry 96 96 95 01/22/18 02:00 01/22/18 03:00 01/22/18 03:29 Temperature Pulse Rate 100 H 100 H 106 H Respiratory Rate 12 13 17 Blood Pressure 161/81 H 153/79 H Pulse Oximetry 96 96 01/22/18 04:00 01/22/18 05:00 01/22/18 08:00 Temperature 98.1 F 98.7 F Pulse Rate 110 H 101 H 93 H Respiratory Rate 30 H 16 18 Blood Pressure 146/87 H 131/65 137/64 Pulse Oximetry 97 95 99 01/22/18 12:02 Temperature Pulse Rate 104 H Respiratory Rate 25 H Blood Pressure Pulse Oximetry Intake & Output 01/21/18 01/22/1818 18:59 06:59 18:59 Output Total 825 / 825 900 / 900 Balance -825 / -825 -900 / -900 Output: Urine 825 / 825 900 / 900 Other: Date of Last Bowel Movement 01/19/18 01/19/18 # Bowel Movements 1 <Tony Manning - Last Filed: 01/22/18 13:07> Results - Labs CBC & Chem 7: 01/22/18 04:40 01/21/18 10:20 Laboratory Results - last 24 hr 01/20/18 01/21/18 01/21/18 11:05 15:55 16:00 WBC RBC Hgb Hct MCV MCH MCHC RDW Plt Count MPV Prelim Diff (Auto) Neut % (Auto) Lymph % (Auto) [place] % (Auto) Eos % (Auto) Baso % (Auto) Neut # (Auto) Lymph # (Auto) [place] # (Auto) Eos # (Auto) Baso # (Auto) WBC Differential Diff Scan Differential Comment Platelet Estimate Platelet Morphology Puncture Site Right radial Patient Temperature 98.6 O2 Saturation 97 ABG pH 7.37 L ABG pCO2 40 ABG pO2 203 H ABG HCO3 22 ABG O2 Content 15.2 ABG Base Excess -2.1 L ABG Methemoglobin 1.3 Brennen Test Present Hemoglobin 10.9 L Carboxyhemoglobin 1.4 O2 Delivery Device Nrm Liter Flow 15.00 Vent Setting Inspired O2 100 Critical Value No POC Glucose 154 H Nasal Screen MRSA (PCR) Bld Prod Order Comment 01/21/18 01/21/18 01/22/18 16:00 17:00 04:40 WBC 7.5 RBC 3.08 L Hgb 9.6 L Hct 27.2 L MCV 88.2 MCH 31.1 MCHC 35.3 RDW 15.2 Plt Count 37 L MPV 7.4 Prelim Diff (Auto) Slide review pending Neut % (Auto) 96.5 H Lymph % (Auto) 1.2 L [place] % (Auto) 2.1 Eos % (Auto) 0.0 Baso % (Auto) 0.2 Neut # (Auto) 7.2 Lymph # (Auto) 0.1 L [place] # (Auto) 0.2 Eos # (Auto) 0.0 Baso # (Auto) 0.0 WBC Differential . Diff Scan Auto diff confirmed Differential Comment . Platelet Estimate Low L Platelet Morphology Normal Puncture Site Cancelled Patient Temperature Cancelled O2 Saturation Cancelled ABG pH Cancelled ABG pCO2 Cancelled ABG pO2 Cancelled ABG HCO3 Cancelled ABG O2 Content Cancelled ABG Base Excess Cancelled ABG Methemoglobin Cancelled Brennen Test Cancelled Hemoglobin Cancelled Carboxyhemoglobin Cancelled O2 Delivery Device Cancelled Liter Flow Cancelled Vent Setting Cancelled Inspired O2 Cancelled Critical Value Cancelled POC Glucose Nasal Screen MRSA (PCR) Not detected Bld Prod Order Comment Microbiology 01/17/18 15:32 Blood - Line Aerobic Blood Culture - Final No growth in 5 days 01/17/18 15:32 Blood - Line Anaerobic Blood Culture - Final No growth in 5 days 01/17/18 15:32 Blood - Line Aerobic Blood Culture - Final No growth in 5 days 01/17/18 15:32 Blood - Line Anaerobic Blood Culture - Final No growth in 5 days - Imaging Impressions Chest X-Ray 01/21/18 15:59 CONCLUSION: Worsening left lung base opacity most likely worsening pleural effusion and consolidation. <Edith Quach - Last Filed: 01/22/18 12:12> - Labs CBC & Chem 7: 01/22/18 04:40 01/21/18 10:20 Laboratory Results - last 24 hr 01/20/18 01/21/18 01/21/18 11:05 15:55 16:00 WBC RBC Hgb Hct MCV MCH MCHC RDW Plt Count MPV Prelim Diff (Auto) Neut % (Auto) Lymph % (Auto) [place] % (Auto) Eos % (Auto) Baso % (Auto) Neut # (Auto) Lymph # (Auto) [place] # (Auto) Eos # (Auto) Baso # (Auto) WBC Differential Diff Scan Differential Comment Platelet Estimate Platelet Morphology Puncture Site Right radial Patient Temperature 98.6 O2 Saturation 97 ABG pH 7.37 L ABG pCO2 40 ABG pO2 203 H ABG HCO3 22 ABG O2 Content 15.2 ABG Base Excess -2.1 L ABG Methemoglobin 1.3 Brennen Test Present Hemoglobin 10.9 L Carboxyhemoglobin 1.4 O2 Delivery Device Nrm Liter Flow 15.00 Vent Setting Inspired O2 100 Critical Value No POC Glucose 154 H Nasal Screen MRSA (PCR) Bld Prod Order Comment 01/21/18 01/21/18 01/22/18 16:00 17:00 04:40 WBC 7.5 RBC 3.08 L Hgb 9.6 L Hct 27.2 L MCV 88.2 MCH 31.1 MCHC 35.3 RDW 15.2 Plt Count 37 L MPV 7.4 Prelim Diff (Auto) Slide review pending Neut % (Auto) 96.5 H Lymph % (Auto) 1.2 L [place] % (Auto) 2.1 Eos % (Auto) 0.0 Baso % (Auto) 0.2 Neut # (Auto) 7.2 Lymph # (Auto) 0.1 L [place] # (Auto) 0.2 Eos # (Auto) 0.0 Baso # (Auto) 0.0 WBC Differential . Diff Scan Auto diff confirmed Differential Comment . Platelet Estimate Low L Platelet Morphology Normal Puncture Site Cancelled Patient Temperature Cancelled O2 Saturation Cancelled ABG pH Cancelled ABG pCO2 Cancelled ABG pO2 Cancelled ABG HCO3 Cancelled ABG O2 Content Cancelled ABG Base Excess Cancelled ABG Methemoglobin Cancelled Brennen Test Cancelled Hemoglobin Cancelled Carboxyhemoglobin Cancelled O2 Delivery Device Cancelled Liter Flow Cancelled Vent Setting Cancelled Inspired O2 Cancelled Critical Value Cancelled POC Glucose Nasal Screen MRSA (PCR) Not detected Bld Prod Order Comment Microbiology 01/17/18 15:32 Blood - Line Aerobic Blood Culture - Final No growth in 5 days 01/17/18 15:32 Blood - Line Anaerobic Blood Culture - Final No growth in 5 days 01/17/18 15:32 Blood - Line Aerobic Blood Culture - Final No growth in 5 days 01/17/18 15:32 Blood - Line Anaerobic Blood Culture - Final No growth in 5 days - Imaging Impressions Chest X-Ray 01/21/18 15:59 CONCLUSION: Worsening left lung base opacity most likely worsening pleural effusion and consolidation. <Tony Manning - Last Filed: 01/22/18 13:07> Assessment and Plan - Plan Anemia/GI bleed -01/20/2018 a.m. labs reveal hemoglobin 6.9 hematocrit 19.9 platelet count 34. Patient without any obvious signs of bleeding. Patient denies abdominal pain nausea or vomiting and denies rectal bleeding. We will continue to follow hemoglobin and hematocrit closely. Patient ordered for transfusion as required. Status post EGD on 01/18/2018 followed by embolization by IR. 01/21/18-01/21/2018 a.m. labs reveal hemoglobin 9.9 hematocrit 28.2 platelet count 44. Patient denies any nausea vomiting or abdominal pain and there are no signs of obvious bleeding noted. Tolerating clear liquid diet well. We will continue to follow hemoglobin and hematocrit closely. 01/22/18-a.m. labs reveal hemoglobin 9.6 hematocrit 27.2 platelet count 37. Patient continues to deny any nausea or vomiting. Denies abdominal pain and states there have been no signs of bleeding. We will continue to monitor for bleeding and follow hemoglobin. Hgb stable post transfusion. Plan: -Continue clear liquid diet -Monitor for any signs of obvious bleeding -Monitor labs -Transfuse as required -PPI -Avoid NSAIDs, aspirin and anticoagulation -Continue bowel regimen -Supportive care -Further recommendations to follow This patient has been seen by myself and Dr. Manning and this note is written on his behalf - Attending Attestation Dr. Manning <Edith Quach - Last Filed: 01/22/18 12:12> - Plan Seen and examined with [employer], no bleeding. Advance diet as tolerated. GI will sign off. Reconsult as needed. Thank you <Tony Manning - Last Filed: 01/22/18 13:07>
--- NOTE | 2018-01-22 13:17 | ECG ---
Date Performed: 01/21/2018 Time Performed: 16:00:18 PTAGE: 72 years EKG: Atrial fibrillation with rapid ventricular response with PVC(s) or aberrant ventricular con duction. --- Suspect limb lead reversal - only V1-V6 analyzed --- Inferior and ant/septal T wave moreno ges are nonspecific Low QRS voltages in precordial leads Abnormal ECG NO PREVIOUS TRACING DOCTOR: Rosenda Solano Interpretating Date/Time 01/22/2018 13:12:04
[2018-01-23] MEDS: HYDROmorphone PF Inj 2 MG/ML Vial IV.PUSH PRN ×3 (05:31→21:47)
[2018-01-23] MEDS: MethylPREDNISolone Sod Succinate Inj 125 MG/2 ML Vial IV.PUSH SCH ×3 (05:32→17:18)
[2018-01-23 05:40] LABS: Baso % (Auto) 0.1 % (0.0-2.0); Hematocrit 23.7 % (39.0-51.0); Hemoglobin 8.1 gm/dL (13.0-17.0); Lymph # (Auto) 0.1 th/mm3 (1.0-4.8); Mean Corpuscular HGB Conc 34.2 % (32.0-36.0); Mean Corpuscular Hemoglobin 30.8 pg (27.0-34.0); Mean Corpuscular Volume 89.9 fL (80.0-100.0); Mean Platelet Volume 7.5 fL (7.0-11.0); Mono # (Auto) 0.2 th/mm3 (0.0-0.9); Mono % (Auto) 2.4 % (0.0-8.0); Neut # (Auto) 7.4 th/mm3 (1.8-7.7); Neut % (Auto) 96.5 % (16.0-70.0); Platelet Count 27 th/mm3 (150-450); Red Blood Count 2.63 mil/mm3 (4.50-5.90); Red Cell Distribution Width 15.5 % (11.6-17.2); White Blood Count 7.7 th/mm3 (4.0-11.0)
[2018-01-23 06:11] LABS: Anion Gap 10 meq/L (5-15); Blood Urea Nitrogen 30 mg/dL (7-18); Calcium 6.9 mg/dL (8.5-10.1); Carbon Dioxide 23.6 meq/L (21.0-32.0); Chloride 106 meq/L (98-107); Glomerular Filtration Rate Greater Than 89 mL/min (>89); Glucose,Random 136 mg/dL (74-106); Sodium 140 meq/L (136-145)
[2018-01-23 06:16] LABS: Potassium 2.9 meq/L (3.5-5.1)
[2018-01-23 06:25] LABS: Platelet Morphology Normal (Normal)
[2018-01-23 06:27] LABS: Total Protein 3.9 g/dL (6.4-8.2)
[2018-01-23] MEDS: Potassium Chlor 40 mEq Premix 40 MEQ/100 ML PIGGYBACK IV.SIG SCH ×2 (07:39→11:18)
[2018-01-23] MEDS: Sodium Chloride 0.9% 2 ML Flush BID IV.FLUSH SCH ×2 (08:44→20:52)
[2018-01-23] MEDS: Senna/Docusate Sodium 8.6/50 MG Tablet PO SCH ×2 (08:44→20:52)
[2018-01-23] MEDS ORDERED: Aluminum/Magnesium/Simethacone Susp 30 ML UDC PO PRN (09:31)
--- NOTE | 2018-01-23 09:40 | P.PNIM ---
Subjective Interval history: pt with severe hearburn and reflux today. ppi gtt hasn't been running. Physical Exam Vital signs: Vital Signs 01/22/18 12:00 01/22/18 12:02 01/22/18 15:14 Temperature 98 F Pulse Rate 107 H 104 H Respiratory Rate 20 25 H 22 Blood Pressure 144/76 H Pulse Oximetry 95 01/22/18 15:27 01/22/18 16:00 01/22/18 16:56 Temperature 98.8 F Pulse Rate 107 H 102 H Respiratory Rate 25 H 22 18 Blood Pressure 123/58 L Pulse Oximetry 96 01/22/18 19:33 01/22/18 20:00 01/22/18 21:41 Temperature 98.7 F Pulse Rate 112 H Respiratory Rate 22 18 17 Blood Pressure 154/70 H Pulse Oximetry 95 01/22/18 23:56 01/23/18 00:00 01/23/18 00:16 Temperature 98.6 F Pulse Rate 108 H 104 H Respiratory Rate 24 16 16 Blood Pressure 115/95 H Pulse Oximetry 100 01/23/18 03:39 01/23/18 04:00 01/23/18 06:01 Temperature 98.7 F Pulse Rate 100 H 111 H Respiratory Rate 16 18 18 Blood Pressure 138/64 Pulse Oximetry 100 01/23/18 07:26 01/23/18 08:00 Temperature 98.8 F Pulse Rate 102 H 112 H Respiratory Rate 21 22 Blood Pressure 135/73 Pulse Oximetry 98 100 Intake & Output 01/22/18 01/23/18 01/23/18 18:59 06:59 18:59 Intake Total 800 / 800 240 / 240 Output Total 800 / 800 900 / 900 Balance 0 / 0 -660 / -660 Weight 102.6 kg Intake: Oral 800 / 800 240 / 240 Output: Urine 800 / 800 900 / 900 Other: Date of Last Bowel Movement 01/19/18 01/19/18 01/19/18 # Bowel Movements 0 in bed oriented belching and wincing from severe heartburn abd s/nt ext left arm lymphedema/ulceraton left chest/abdomen nodular changes Results - Labs CBC & Chem 7: 01/23/18 05:00 01/23/18 05:00 Laboratory Results - last 24 hr 01/23/18 01/23/18 05:00 05:00 WBC 7.7 RBC 2.63 L Hgb 8.1 L Hct 23.7 L MCV 89.9 MCH 30.8 MCHC 34.2 RDW 15.5 Plt Count 27 L MPV 7.5 Prelim Diff (Auto) Slide review pending Neut % (Auto) 96.5 H Lymph % (Auto) 1.0 L [place] % (Auto) 2.4 Eos % (Auto) 0.0 Baso % (Auto) 0.1 Neut # (Auto) 7.4 Lymph # (Auto) 0.1 L [place] # (Auto) 0.2 Eos # (Auto) 0.0 Baso # (Auto) 0.0 WBC Differential . Diff Scan Auto diff confirmed Differential Comment . Platelet Estimate Low L Platelet Morphology Normal Sodium 140 Potassium 2.9 L* D Chloride 106 Carbon Dioxide 23.6 Anion Gap 10 BUN 30 H Creatinine 0.64 Estimated GFR Greater than 89 Random Glucose 136 H Calcium 6.9 L* D Prot Corrected Calcium 8.7 Total Protein 3.9 L Microbiology 01/17/18 15:32 Blood - Line Aerobic Blood Culture - Final No growth in 5 days 01/17/18 15:32 Blood - Line Anaerobic Blood Culture - Final No growth in 5 days 01/17/18 15:32 Blood - Line Aerobic Blood Culture - Final No growth in 5 days 01/17/18 15:32 Blood - Line Anaerobic Blood Culture - Final No growth in 5 days Assessment and Plan - Assessment (1) Metastatic squamous cell carcinoma Code(s): C79.9 - Secondary malignant neoplasm of unspecified site Status: Acute Plan: Stage IV metastatic SCC undergoing chemo and XRT metastatic disease involving left arm/lymphedema, left chest/abdomen wall - Chemotherapy and radiation are on hold - Pt remains aggressive and wants therapy. - Pt with severe left arm pain from lymphedema/tumor/ulceration - Cont. prn [place]. - Morphine not working. Dilaudid PRN. Discussed bp limitations - Also addressed code status and comfort care. He desires continued aggressive approach and full code. Acute on chronic anemia. acute blood loss from gib. gastric and duodenal ulcerations etoh abuse - Pt is 72 yo with stage 4 metastatic SCC felt to be lung primary. Had been undergoing chemoradiation. Pt has had multiple admissions recently for etoh abuse, acute gib, and pain and ulceration/cellulitis of left arm. Pt was just discharged this past weekend to snf after being admitted to ICU for acute GIB and hypotension. That admission was from 01/02 until 01/15. - Pt underwent EGD (01/03/18) --> the esophagus appeared to be unremarkable and within normal limits. small hiatal hernia with a linear ulceration in the gastric cardia possibly representing a Romie ulcer, no visible vessel, no active bleeding, but in the duodenum there were multiple ulcerations noted in the duodenal bulb and the descending duodenum most were superficial and clean based one was actively bleeding just distal to the ampulla a small vessel was noted and so a clip was placed and no further bleeding was noted biopsies were taken from the ulcer sites - Pt underwent repeat EGD (01/08/18) --> Mild gastritis and two duodenal ulcers with active bleeding s/p clipping. - Pt required blood transfusions of 12 units of PRBCs from 01/02-01/15 admission. He underwent bleeding scan on 01/14 negative for bleeding and so was sent to snf. - During the last hospitalization he was also treated for afib with rvr and copd exacerbations. - [place] [facility] [place] with complaints of SOB and left arm pain. Hgb noted to be 5 again. ED ordered 3 units blood. - Pt underwent repeat EGD 01/18/18 which noted bleeding ulcers. Pt then underwent successful GDA embolization in IR. - Pt received s/p 3 units prbc 01/17 - Repeat H/H on 01/20 with again a decreased Hgb to 6.7 - Pt to be transfused with another 2 units PRBCs on 01/20/18. No noted active GIB. ordered a unit if Platelets as well. hgb again trending down. severe heartburn. iv ppi and maalox. Pt likely will have ongoing blood loss and so far we are unable to stop it. cont ICU today. will likely be brought back emergently if we move this pt to med /surg and he remains full code. COPD -pt with copd exacerbation cont nebs/solumedrol became acutely sob and moved to ICU on 01/21...improved with iv lasix and diuresis hold lasix and aggressively replace kcl today. AFIB - No anticoagulation due to bleeding. (2) GIB (gastrointestinal bleeding) Code(s): K92.2 - Gastrointestinal hemorrhage, unspecified Status: Acute (3) Gastric ulceration Code(s): K25.9 - Gastric ulcer, unspecified as acute or chronic, without hemorrhage or perforation Status: Acute (4) Duodenal ulceration Code(s): K26.9 - Duodenal ulcer, unspecified as acute or chronic, without hemorrhage or perforation Status: Acute (5) COPD (chronic obstructive pulmonary disease) Code(s): J44.9 - Chronic obstructive pulmonary disease, unspecified Status: Chronic (6) Afib Code(s): I48.91 - Unspecified atrial fibrillation Status: Chronic
[2018-01-23] MEDS: Pantoprazole Inj 40 MG Vial IV.PUSH SCH ×2 (09:43→21:48)
[2018-01-23] MEDS ORDERED: Aluminum/Magnesium/Simethacone Susp 30 ML UDC PO ONE (09:45)
[2018-01-23] MEDS ORDERED: LORazepam 0.5 MG Tablet PO PRN (10:44)
[2018-01-24] MEDS: MethylPREDNISolone Sod Succinate Inj 125 MG/2 ML Vial IV.PUSH SCH ×5 (00:14→23:10)
[2018-01-24] MEDS: HYDROmorphone PF Inj 2 MG/ML Vial IV.PUSH PRN ×5 (04:52→23:10)
[2018-01-24 05:57] LABS: Baso % (Auto) 0.2 % (0.0-2.0); Hematocrit 25.1 % (39.0-51.0); Hemoglobin 8.4 gm/dL (13.0-17.0); Lymph # (Auto) 0.1 th/mm3 (1.0-4.8); Lymph % (Auto) 1.1 % (9.0-44.0); Mean Corpuscular HGB Conc 33.7 % (32.0-36.0); Mean Corpuscular Hemoglobin 30.8 pg (27.0-34.0); Mean Corpuscular Volume 91.5 fL (80.0-100.0); Mean Platelet Volume 7.6 fL (7.0-11.0); Mono # (Auto) 0.2 th/mm3 (0.0-0.9); Mono % (Auto) 3.4 % (0.0-8.0); Neut # (Auto) 5.8 th/mm3 (1.8-7.7); Neut % (Auto) 95.3 % (16.0-70.0); Platelet Count 22 th/mm3 (150-450); Red Blood Count 2.74 mil/mm3 (4.50-5.90); Red Cell Distribution Width 15.6 % (11.6-17.2); White Blood Count 6.1 th/mm3 (4.0-11.0)
[2018-01-24 06:26] LABS: Anion Gap 9 meq/L (5-15); Blood Urea Nitrogen 34 mg/dL (7-18); Carbon Dioxide 27.3 meq/L (21.0-32.0); Chloride 101 meq/L (98-107); Glomerular Filtration Rate Greater Than 89 mL/min (>89); Glucose,Random 129 mg/dL (74-106); Magnesium 1.7 mg/dL (1.5-2.5); Potassium 4.1 meq/L (3.5-5.1); Sodium 137 meq/L (136-145)
[2018-01-24 08:11] LABS: Platelet Morphology Normal (Normal)
[2018-01-24] MEDS: Sodium Chloride 0.9% 2 ML Flush BID IV.FLUSH SCH ×2 (09:02→20:56)
[2018-01-24] MEDS: Senna/Docusate Sodium 8.6/50 MG Tablet PO SCH ×2 (09:02→20:56)
[2018-01-24] MEDS: Pantoprazole Inj 40 MG Vial IV.PUSH SCH ×2 (09:02→23:09)
--- NOTE | 2018-01-24 15:14 | P.PNWCN ---
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 Patient at that time was receiving daily radiation treatments.
--- NOTE | 2018-01-24 16:16 | P.PNIM ---
Subjective Interval history: Pt c/o increased SOB this afternoon. Physical Exam Vital signs: 01/24/18 10:50 Temperature Pulse Rate 106 H Respiratory Rate 32 H Blood Pressure Pulse Oximetry Narrative: General: NAD, AAOx3 Chest: decreased air movement x b/l Cardiac: Regular Abd: +BS, soft ND/NT Ext: Left arm lymphedema/swelling and metastatic nodules on left arm/chest and abdomen wall. Results - Labs CBC & Chem 7: 01/24/18 04:05 01/24/18 04:05 Assessment and Plan - Assessment (1) Metastatic squamous cell carcinoma Code(s): C79.9 - Secondary malignant neoplasm of unspecified site Status: Acute Plan: Stage IV metastatic SCC undergoing chemo and XRT metastatic disease involving left arm/lymphedema, left chest/abdomen wall - Chemotherapy and radiation are on hold - Pt remains aggressive and wants therapy. - Pt with severe left arm pain from lymphedema/tumor/ulceration - Cont. prn [place]. - Morphine not working. Dilaudid PRN. Discussed bp limitations - Also addressed code status and comfort care. He desires continued aggressive approach and full code. Acute on chronic anemia. acute blood loss from gib. gastric and duodenal ulcerations etoh abuse - Pt is 72 yo with stage 4 metastatic SCC felt to be lung primary. Had been undergoing chemoradiation. Pt has had multiple admissions recently for etoh abuse, acute gib, and pain and ulceration/cellulitis of left arm. Pt was just discharged this past weekend to snf after being admitted to ICU for acute GIB and hypotension. That admission was from 01/02 until 01/15. - Pt underwent EGD (01/03/18) --> the esophagus appeared to be unremarkable and within normal limits. small hiatal hernia with a linear ulceration in the gastric cardia possibly representing a Romie ulcer, no visible vessel, no active bleeding, but in the duodenum there were multiple ulcerations noted in the duodenal bulb and the descending duodenum most were superficial and clean based one was actively bleeding just distal to the ampulla a small vessel was noted and so a clip was placed and no further bleeding was noted biopsies were taken from the ulcer sites - Pt underwent repeat EGD (01/08/18) --> Mild gastritis and two duodenal ulcers with active bleeding s/p clipping. - Pt required blood transfusions of 12 units of PRBCs from 01/02-01/15 admission. He underwent bleeding scan on 01/14 negative for bleeding and so was sent to snf. - During the last hospitalization he was also treated for afib with rvr and copd exacerbations. - Pt presented back to the ED at [facility] [place] on 01/17/18 with complaints of SOB and left arm pain. Hgb noted to be 5 again. ED ordered 3 units blood. - Pt underwent repeat EGD 01/18/18 which noted bleeding ulcers. Pt then underwent successful GDA embolization in IR. - Pt received s/p 3 units prbc 01/17 - Repeat H/H on 01/20 with again a decreased Hgb to 6.7 - Pt to be transfused with another 2 units PRBCs on 01/20/18. No noted active GIB. ordered a unit if Platelets as well. hgb again trending down. severe heartburn. iv ppi and maalox. Pt likely will have ongoing blood loss and so far we are unable to stop it. cont ICU today. will likely be brought back emergently if we move this pt to med /surg and he remains full code. COPD -pt with copd exacerbation cont nebs/solumedrol became acutely sob and moved to ICU on 01/21...improved with iv lasix and diuresis hold lasix and aggressively replace kcl today. 01/24/18 - pt with increased SOB - give stat duoneb - obtain stat CXR --> left pleural effusion - platelet count low - lasix 40mg IV x once - Case d/w with Dr. Drake, Critical Care. Will attempt left thoracentesis utilizing pigtail catheter AFIB - No anticoagulation due to bleeding. (2) GIB (gastrointestinal bleeding) Code(s): K92.2 - Gastrointestinal hemorrhage, unspecified Status: Acute (3) Gastric ulceration Code(s): K25.9 - Gastric ulcer, unspecified as acute or chronic, without hemorrhage or perforation Status: Acute (4) Duodenal ulceration Code(s): K26.9 - Duodenal ulcer, unspecified as acute or chronic, without hemorrhage or perforation Status: Acute (5) COPD (chronic obstructive pulmonary disease) Code(s): J44.9 - Chronic obstructive pulmonary disease, unspecified Status: Chronic (6) Afib Code(s): I48.91 - Unspecified atrial fibrillation Status: Chronic
--- NOTE | 2018-01-24 16:34 | XR ---
EXAM DATE: 01/24/2018 12:00 AM EDT AGE/SEX: 72 years / Male INDICATIONS: Short of breath CLINICAL DATA: This is the patient's subsequent encounter. Patient reports that signs and symptoms h ave been present for 1 week and indicates a pain score of 0/10. MEDICAL/SURGICAL HISTORY: . Hypertension. Lymphoma. Gastroesophageal reflux disease. Chronic o bstructive pulmonary disease.. . Angioplasty. Infusaport COMPARISON: C, CHEST 1V SINGLE AP, 01/21/2018. . FINDINGS: On today's examination there continues to be a patchy infiltrate involving the left lower lung. This is about the same compared to the prior exam. The right lung remains clear and well-aerated. No new i nfiltrates are demonstrated. The heart size is stable. There is no evidence of pneumothorax. The righ t-sided central line remains in place. CONCLUSION: Stable patchy infiltrate in the left lower lung compared to the prior exam. Electronically signed by: J Carlos Flower MD 01/24/2018 4:33 PM EDT
[2018-01-24] MEDS ORDERED: Sodium Chlor 0.9% Inj 250 ML IV.SIG SCH (17:00)
[2018-01-24] MEDS ORDERED: HYDROmorphone PF Inj 2 MG/ML Vial IV.PUSH ONE (17:27)
[2018-01-24] MEDS ORDERED: Albumin Human 25% Inj 100 ML IV.SIG ONE (17:29)
--- NOTE | 2018-01-24 17:40 | P.PCN ---
Date of procedure: 01/24/18 Pre-op diagnosis: RESP DISTRESS, LARGE LEFT PLEURAL EFFUSION Post-op diagnosis: same Procedure: Ultrasound-guided left pigtail chest tube placement A time-out was completed verifying correct patient, procedure, site, positioning , and special equipment if applicable. Two units of platelets ongoing transfusion due to thrombocytopenia. The patient was positioned appropriately for chest tube placement. The patients left chest was prepped and draped in sterile fashion. 1% Lidocaine was used to anesthetize the surrounding skin area. A 0.25 CM skin incision was made posterolateral let thorax, at the site marked with ultrasound. 18-gauge introducer needle was inserted into the pleural space and clear straw-colored pleural fluid was removed. Syringe was removed and a guidewire was placed followed by removal of the needle. Track dilated and using Seldinger technique a 10 [place] pigtail catheter was advanced in the pleural space and connected to Pleur-evac. Pigtail was secured with a suture and stay fix. Initial output was 1.7 L (1700 ml) of straw-colored pleural fluid. Await further fluid studies. Chest x-ray is pending at this time and will be reviewed Anesthesia: local Surgeon: Concha Drake Estimated blood loss (mL): 1 Pathology: other (PL FUID SENT FOR STUDIES) Condition: critical Disposition: ICU
--- NOTE | 2018-01-24 18:32 | XR ---
EXAM DATE: 01/24/2018 12:00 AM EDT AGE/SEX: 72 years / Male INDICATIONS: Status post chest tube. CLINICAL DATA: This is the patient's subsequent encounter. Patient reports that signs and symptoms h ave been present for 4 - 6 days and indicates a pain score of 0/10. MEDICAL/SURGICAL HISTORY: Hypertension. Lymphoma. Chronic obstructive pulmonary disease. . [place]. COMPARISON: [facility] [place], CHEST 1V SINGLE AP, 01/24/2018. . FINDINGS: Single frontal view of the chest is performed. The left costophrenic angle is not included in the fie ld-of-view and only a portion of the left chest catheter is seen; this is an incomplete evaluation wi th regard to the left chest catheter. No evidence of pneumothorax on the left side and no infiltrates seen in the visualized portion of the left lung. There is elevation of the right hemidiaphragm and f ullness in the right perihilar region similar to prior exam. Kqtukm-w-Opyj catheter tip projects over the distal superior vena cava. CONCLUSION: Incomplete evaluation with noninclusion of the left costophrenic angle and the left chest tube in the [id number]. No infiltrates seen in the left lung. Stable elevation right hemidiaphragm. Electronically signed by: Vasquez Chicas MD 01/24/2018 6:30 PM EDT
[2018-01-24 22:16] LABS: Lymphocytes,Pleural Fluid 6 %; Mesothelial,Pleural Fluid 66 %; Monocytes,Pleural Fluid 3 %; Neutrophils,Pleural Fluid 8 %; RBC,Pleural Fluid 1113 /mm3 (0-0)
[2018-01-25 01:28] LABS: Total Protein,Pleural Fluid 2.6 gm/dL
[2018-01-25 05:32] LABS: Hematocrit 23.1 % (39.0-51.0); Hemoglobin 7.9 gm/dL (13.0-17.0); Lymph % (Auto) 1.4 % (9.0-44.0); Mean Corpuscular HGB Conc 34.1 % (32.0-36.0); Mean Corpuscular Hemoglobin 31.1 pg (27.0-34.0); Mean Corpuscular Volume 91.4 fL (80.0-100.0); Mean Platelet Volume 6.9 fL (7.0-11.0); Mono # (Auto) 0.1 th/mm3 (0.0-0.9); Neut # (Auto) 3.2 th/mm3 (1.8-7.7); Neut % (Auto) 94.6 % (16.0-70.0); Platelet Count 103 th/mm3 (150-450); Red Blood Count 2.53 mil/mm3 (4.50-5.90); Red Cell Distribution Width 15.6 % (11.6-17.2); White Blood Count 3.4 th/mm3 (4.0-11.0)
[2018-01-25 05:50] LABS: Anion Gap 10 meq/L (5-15); Calcium 8.2 mg/dL (8.5-10.1); Carbon Dioxide 29.9 meq/L (21.0-32.0); Chloride 99 meq/L (98-107); Glomerular Filtration Rate Greater Than 89 mL/min (>89); Glucose,Random 142 mg/dL (74-106); Magnesium 1.6 mg/dL (1.5-2.5); Potassium 3.3 meq/L (3.5-5.1); Sodium 139 meq/L (136-145)
[2018-01-25 05:54] LABS: Blood Urea Nitrogen 29 mg/dL (7-18)
[2018-01-25] MEDS: MethylPREDNISolone Sod Succinate Inj 125 MG/2 ML Vial IV.PUSH SCH ×3 (05:58→17:58)
[2018-01-25 06:58] LABS: Lymphocytes 3 % (9-44); Monocytes 1 % (0-8); Myelocytes 1 % (0-0); Platelet Morphology Normal (Normal)
[2018-01-25] MEDS: Sodium Chloride 0.9% 2 ML Flush BID IV.FLUSH SCH ×2 (08:07→20:38)
[2018-01-25] MEDS: Senna/Docusate Sodium 8.6/50 MG Tablet PO SCH ×2 (08:07→20:38)
[2018-01-25] MEDS: HYDROmorphone PF Inj 2 MG/ML Vial IV.PUSH PRN ×3 (08:53→20:37)
--- NOTE | 2018-01-25 08:54 | XR ---
EXAM DATE: 01/25/2018 8:00 AM EDT AGE/SEX: 72 years / Male INDICATIONS: Shortness of breath. CLINICAL DATA: This is the patient's subsequent encounter. Patient reports that signs and symptoms h ave been present for 1 week and indicates a pain score of 10/10. MEDICAL/SURGICAL HISTORY: Lymphoma. Hypertension. Chronic obstructive pulmonary disease. Ingu inal hernia repair. Bilateral total hip arthroplasty. COMPARISON: [facility] [place], CHEST 1V SINGLE AP, 01/24/2018. . FINDINGS: Today's examination is compared to the prior study. There continues to be elevation of the right shanelle diaphragm. There is some platelike atelectasis in the left lower lung. There is improving atelectasis in the right upper lung. No new infiltrates are demonstrated. The heart size is stable. No evidence of pneumothorax. The right Hwgnhs-q-Gbms remains in place. The bony structures are stable. CONCLUSION: 1. Improving atelectasis in the right upper lung. 2. Stable atelectasis in the left lung base. 3. Stable elevation right hemidiaphragm. 4. No other new or significant changes. Electronically signed by: J Carlos Flower MD 01/25/2018 8:52 AM EDT
[2018-01-25] MEDS: Pantoprazole Inj 40 MG Vial IV.PUSH SCH ×2 (09:42→22:30)
[2018-01-25] MEDS ORDERED: Potassium Chloride 25 MEQ Effervescent Tablet PO ONE (12:00)
--- NOTE | 2018-01-25 13:02 | P.PNIM ---
Subjective Interval history: Pt less SOB since thoracentesis. Physical Exam Vital signs: 01/25/18 08:00 01/25/18 12:00 Temperature 98.7 F 98.7 F Pulse Rate 108 H 98 H Respiratory Rate 18 19 Blood Pressure 122/56 L 117/60 Pulse Oximetry 97 94 L Narrative: General: NAD, AAOx3 Chest: decreased air movement x b/l Cardiac: Regular Abd: +BS, soft ND/NT Ext: Left arm lymphedema/swelling and metastatic nodules on left arm/chest and abdomen wall. Results - Labs CBC & Chem 7: 01/30/18 05:15 01/29/18 05:00 Laboratory Results - last 24 hr 01/20/18 01/24/18 01/24/18 11:00 16:33 17:25 WBC RBC Hgb Hct MCV MCH MCHC RDW Plt Count MPV Prelim Diff (Auto) Neut % (Auto) Lymph % (Auto) [place] % (Auto) Eos % (Auto) Baso % (Auto) Neut # (Auto) Lymph # (Auto) [place] # (Auto) Eos # (Auto) Baso # (Auto) WBC Differential Seg Neuts % (Manual) Band Neuts % (Manual) Lymphocytes % (Manual) Monocytes % (Manual) Myelocytes % (Man) Abs Neuts (Manual) Differential Comment Platelet Estimate Platelet Morphology Sodium Potassium Chloride Carbon Dioxide Anion Gap BUN Creatinine Estimated GFR Random Glucose Calcium Magnesium Pleural pH 9.0 Pleural RBC Pleural Nuc Cells Pleural Neutrophils Pleural Lymphocytes Pleural Monocytes Pleural Plasma Cells Pleural Histocytes Pleural Mesothelial Pleural Other Cells Pleural Fluid Comment Pleural Total Protein 1.0 Pleural LDH 413 Pleural Glucose 153 Pleural Amylase 8 MTS Gel Crossmatch See Detail Bld Prod Order Comment 01/24/18 01/25/18 01/25/18 17:25 00:56 04:26 WBC 3.4 L RBC 2.53 L Hgb 7.9 L Hct 23.1 L MCV 91.4 MCH 31.1 MCHC 34.1 RDW 15.6 Plt Count 103 L D MPV 6.9 L Prelim Diff (Auto) Slide review pending Neut % (Auto) 94.6 H Lymph % (Auto) 1.4 L [place] % (Auto) 4.0 Eos % (Auto) 0.0 Baso % (Auto) 0.0 Neut # (Auto) 3.2 Lymph # (Auto) 0.0 L [place] # (Auto) 0.1 Eos # (Auto) 0.0 Baso # (Auto) 0.0 WBC Differential Manual diff final Seg Neuts % (Manual) 87 H Band Neuts % (Manual) 8 H Lymphocytes % (Manual) 3 L Monocytes % (Manual) 1 Myelocytes % (Man) 1 H Abs Neuts (Manual) 3.3 Differential Comment . Platelet Estimate Low L Platelet Morphology Normal Sodium Potassium Chloride Carbon Dioxide Anion Gap BUN Creatinine Estimated GFR Random Glucose Calcium Magnesium Pleural pH Pleural RBC 1113 H Pleural Nuc Cells 74 H Pleural Neutrophils 8 Pleural Lymphocytes 6 Pleural Monocytes 3 Pleural Plasma Cells 2 Pleural Histocytes 5 Pleural Mesothelial 66 Pleural Other Cells 10 Pleural Fluid Comment Pleural Total Protein 2.6 Pleural LDH 694 Pleural Glucose Pleural Amylase 29 MTS Gel Crossmatch Bld Prod Order Comment 01/25/18 04:26 WBC RBC Hgb Hct MCV MCH MCHC RDW Plt Count MPV Prelim Diff (Auto) Neut % (Auto) Lymph % (Auto) [place] % (Auto) Eos % (Auto) Baso % (Auto) Neut # (Auto) Lymph # (Auto) [place] # (Auto) Eos # (Auto) Baso # (Auto) WBC Differential Seg Neuts % (Manual) Band Neuts % (Manual) Lymphocytes % (Manual) Monocytes % (Manual) Myelocytes % (Man) Abs Neuts (Manual) Differential Comment Platelet Estimate Platelet Morphology Sodium 139 Potassium 3.3 L D Chloride 99 Carbon Dioxide 29.9 Anion Gap 10 BUN 29 H Creatinine 0.71 Estimated GFR Greater than 89 Random Glucose 142 H Calcium 8.2 L Magnesium 1.6 Pleural pH Pleural RBC Pleural Nuc Cells Pleural Neutrophils Pleural Lymphocytes Pleural Monocytes Pleural Plasma Cells Pleural Histocytes Pleural Mesothelial Pleural Other Cells Pleural Fluid Comment Pleural Total Protein Pleural LDH Pleural Glucose Pleural Amylase MTS Gel Crossmatch Bld Prod Order Comment Microbiology 01/24/18 17:15 Fluid - Pleural fluid Gram Stain - Final - Imaging Chest X-Ray 01/24/18 00:00 Stable patchy infiltrate in the left lower lung compared to the prior exam. Chest X-Ray 01/24/18 00:00 Incomplete evaluation with noninclusion of the left costophrenic angle and the left chest tube in the [id number]. No infiltrates seen in the left lung. Stable elevation right hemidiaphragm. Chest X-Ray 01/25/18 08:00 1. Improving atelectasis in the right upper lung. 2. Stable atelectasis in the left lung base. 3. Stable elevation right hemidiaphragm. 4. No other new or significant changes. Assessment and Plan - Assessment (1) Metastatic squamous cell carcinoma Code(s): C79.9 - Secondary malignant neoplasm of unspecified site Status: Acute Plan: Stage IV metastatic SCC undergoing chemo and XRT metastatic disease involving left arm/lymphedema, left chest/abdomen wall - Chemotherapy and radiation are on hold - Pt remains aggressive and wants therapy. - Pt with severe left arm pain from lymphedema/tumor/ulceration - Cont. prn [place]. - Morphine not working. Dilaudid PRN. Discussed bp limitations - Also addressed code status and comfort care. He desires continued aggressive approach and full code. Acute on chronic anemia. acute blood loss from gib. gastric and duodenal ulcerations etoh abuse - Pt is 72 yo with stage 4 metastatic SCC felt to be lung primary. Had been undergoing chemoradiation. Pt has had multiple admissions recently for etoh abuse, acute gib, and pain and ulceration/cellulitis of left arm. Pt was just discharged this past weekend to snf after being admitted to ICU for acute GIB and hypotension. That admission was from 01/02 until 01/15. - Pt underwent EGD (01/03/18) --> the esophagus appeared to be unremarkable and within normal limits. small hiatal hernia with a linear ulceration in the gastric cardia possibly representing a Romie ulcer, no visible vessel, no active bleeding, but in the duodenum there were multiple ulcerations noted in the duodenal bulb and the descending duodenum most were superficial and clean based one was actively bleeding just distal to the ampulla a small vessel was noted and so a clip was placed and no further bleeding was noted biopsies were taken from the ulcer sites - Pt underwent repeat EGD (01/08/18) --> Mild gastritis and two duodenal ulcers with active bleeding s/p clipping. - Pt required blood transfusions of 12 units of PRBCs from 01/02-01/15 admission. He underwent bleeding scan on 01/14 negative for bleeding and so was sent to snf. - During the last hospitalization he was also treated for afib with rvr and copd exacerbations. - Pt presented back to the ED at [facility] [place] on 01/17/18 with complaints of SOB and left arm pain. Hgb noted to be 5 again. ED ordered 3 units blood. - Pt underwent repeat EGD 01/18/18 which noted bleeding ulcers. Pt then underwent successful GDA embolization in IR 01/18/18 - Pt received s/p 3 units prbc 01/17 - Repeat H/H on 01/20 with again a decreased Hgb to 6.7 - Pt to be transfused with another 2 units PRBCs on 01/20/18. No noted active GIB. ordered a unit if Platelets as well. - Hg 7.9 (01/25) - severe heartburn. - iv ppi and maalox. Pt likely will have ongoing blood loss and so far we are unable to stop it. COPD -pt with copd exacerbation cont nebs/solumedrol became acutely sob and moved to ICU on 01/21...improved with iv lasix and diuresis hold lasix and aggressively replace kcl today. pleural effusion, left - thoracentesis with placement of drainage catheter to pleurovac by Critical Care (01/24) - consult Pulm Med - repeat CXR (01/25) --> decreased left pleural effusion AFIB - No anticoagulation due to bleeding. (2) GIB (gastrointestinal bleeding) Code(s): K92.2 - Gastrointestinal hemorrhage, unspecified Status: Acute (3) Gastric ulceration Code(s): K25.9 - Gastric ulcer, unspecified as acute or chronic, without hemorrhage or perforation Status: Acute (4) Duodenal ulceration Code(s): K26.9 - Duodenal ulcer, unspecified as acute or chronic, without hemorrhage or perforation Status: Acute (5) COPD (chronic obstructive pulmonary disease) Code(s): J44.9 - Chronic obstructive pulmonary disease, unspecified Status: Chronic (6) Afib Code(s): I48.91 - Unspecified atrial fibrillation Status: Chronic
--- NOTE | 2018-01-25 20:03 | MB ---
cc: Caleb Ellis MD DATE: 01/25/2018 REASON FOR CONSULTATION: Pleural effusion. HISTORY OF PRESENT ILLNESS: The patient is a 72-year-old male with a history of metastatic small cell lung cancer. The patient had received radiation therapy and chemotherapy in the past. The patient was admitted at present for acute GI bleed requiring multiple transfusions as well as an EGD. The patient does have a left chest tube in place for underlying pleural effusion. He states the shortness of breath is improved. He denies history of fever, chills, cough or expectoration or hemoptysis. PAST MEDICAL HISTORY: Metastatic small cell lung cancer, GI bleed as above, atrial fibrillation, has received anticoagulants in the past; however, not at present due to GI bleed. SOCIAL HISTORY: Smoked a pack of cigarettes a day for over 50 years. Drinks alcohol regularly. Has history has history of ETOH abuse. FAMILY HISTORY: Noncontributory. REVIEW OF SYSTEMS: A 12-point review of systems as per HPI and past history, otherwise negative. PHYSICAL EXAMINATION: GENERAL: The patient is alert, appears in no acute distress. VITAL SIGNS: Temperature 98, pulse 90, respirations 18, blood pressure 130/70. HEENT: Unremarkable. Eyes without icterus. NECK: Without adenopathy or thyroid enlargement. CHEST: Decreased breath sounds at the left base. CARDIAC: PMI not appreciated. ABDOMEN: Lax, audible bowel sounds. PSYCHIATRIC: Trace edema. LABORATORY DATA: White count 6.1, hemoglobin 8.4, platelets 22,000. Arterial blood gas on 01/21/2018, pH 737, pCO2 of 40, pO2 200 and 100% oxygen. Sodium 139, potassium 3.3, BUN 29, creatinine 0.7. IMPRESSION: 1. Metastatic small cell lung cancer. 2. Left pleural effusion, probably malignant. 3. Gastrointestinal bleed. 4. Atrial fibrillation. PLAN: The patient is improved post chest tube insertion. I believe a pleurodesis would be appropriate prior to removing the patient's chest tube. I have discussed the findings with the patient in detail including future actions of therapy and palliative therapy. However, I believe oncology should see the patient if there are any further plans they have for therapy. He seems to have widespread metastatic disease with a very poor outcome. I do thank you for asking me to partake in Mr. Calderon's care. Caleb Ellis MD WWW/ct , 07:15 PM , 07:23 PM
[2018-01-26] MEDS: MethylPREDNISolone Sod Succinate Inj 125 MG/2 ML Vial IV.PUSH SCH ×4 (01:36→22:29)
[2018-01-26] MEDS: HYDROmorphone PF Inj 2 MG/ML Vial IV.PUSH PRN ×4 (02:08→15:30)
[2018-01-26 07:05] LABS: Baso % (Auto) 0.1 % (0.0-2.0); Lymph % (Auto) 1.4 % (9.0-44.0); Mean Corpuscular HGB Conc 34.5 % (32.0-36.0); Mean Corpuscular Hemoglobin 31.2 pg (27.0-34.0); Mean Corpuscular Volume 90.4 fL (80.0-100.0); Mono # (Auto) 0.1 th/mm3 (0.0-0.9); Mono % (Auto) 4.4 % (0.0-8.0); Neut # (Auto) 2.7 th/mm3 (1.8-7.7); Neut % (Auto) 94.1 % (16.0-70.0); Platelet Count 76 th/mm3 (150-450); Red Blood Count 2.55 mil/mm3 (4.50-5.90); White Blood Count 2.9 th/mm3 (4.0-11.0)
[2018-01-26 07:28] LABS: Anion Gap 8 meq/L (5-15); Blood Urea Nitrogen 26 mg/dL (7-18); Calcium 8.1 mg/dL (8.5-10.1); Carbon Dioxide 29.9 meq/L (21.0-32.0); Chloride 100 meq/L (98-107); Glomerular Filtration Rate Greater Than 89 mL/min (>89); Glucose,Random 141 mg/dL (74-106); Magnesium 1.6 mg/dL (1.5-2.5); Potassium 3.6 meq/L (3.5-5.1); Sodium 138 meq/L (136-145)
[2018-01-26] MEDS: Senna/Docusate Sodium 8.6/50 MG Tablet PO SCH ×2 (08:05→20:29)
[2018-01-26] MEDS: Sodium Chloride 0.9% 2 ML Flush BID IV.FLUSH SCH ×2 (08:06→20:29)
[2018-01-26 08:48] LABS: Lymphocytes 2 % (9-44)
[2018-01-26 08:50] LABS: Platelet Morphology Normal (Normal)
--- NOTE | 2018-01-26 09:22 | P.PN ---
Subjective Interval history: ALERT CHEST TUBE STILL DRAINING NAD Physical Exam Vital signs: Vital Signs 01/25/18 12:00 01/25/18 16:00 01/25/18 20:00 Temperature 98.7 F 98.4 F 98.9 F Pulse Rate 98 H 110 H 112 H Respiratory Rate 19 17 16 Blood Pressure 117/60 129/68 133/82 Pulse Oximetry 94 L 99 96 01/25/18 23:01 01/26/18 00:00 01/26/18 04:00 Temperature 98.9 F 98.9 F Pulse Rate 108 H 124 H 86 Respiratory Rate 16 16 16 Blood Pressure 144/90 H 131/62 Pulse Oximetry 95 96 97 01/26/18 06:10 Temperature Pulse Rate Respiratory Rate 16 Blood Pressure Pulse Oximetry Intake & Output 01/25/18 01/26/18 01/26/18 18:59 06:59 18:59 Intake Total 1221 / 1221 480 / 480 Output Total 400 / 400 1100 / 1100 Balance 821 / 821 -620 / -620 Weight 97.7 kg Intake: Oral 480 / 480 480 / 480 Intake (Blood Product) Amt 741 / 741 Plt Pheresis B Leukoreduced 288 / 288 Unit [id number] Plt Pheresis S Leukoreduced 453 / 453 Unit [id number] Output: Urine 400 / 400 750 / 750 Chest Tube Drainage 350 / 350 #1 Left 350 / 350 Other: Date of Last Bowel Movement 01/19/18 01/25/18 # Bowel Movements 0 Narrative: General: NAD, AAOx3 Chest: decreased air movement x b/l Cardiac: Regular Abd: +BS, soft ND/NT Ext: Left arm lymphedema/swelling and metastatic nodules on left arm/chest and abdomen wall. Results - Labs CBC & Chem 7: 01/26/18 05:30 01/26/18 05:30 Laboratory Results - last 24 hr 01/25/18 01/26/18 01/26/18 13:15 05:30 05:30 WBC 2.9 L RBC 2.55 L Hgb 8.0 L Hct 23.0 L MCV 90.4 MCH 31.2 MCHC 34.5 RDW 16.0 Plt Count 76 L MPV 7.0 Prelim Diff (Auto) Slide review pending Neut % (Auto) 94.1 H Lymph % (Auto) 1.4 L [place] % (Auto) 4.4 Eos % (Auto) 0.0 Baso % (Auto) 0.1 Neut # (Auto) 2.7 Lymph # (Auto) 0.0 L [place] # (Auto) 0.1 Eos # (Auto) 0.0 Baso # (Auto) 0.0 WBC Differential Manual diff final Seg Neuts % (Manual) 90 H Band Neuts % (Manual) 8 H Lymphocytes % (Manual) 2 L Abs Neuts (Manual) 2.8 Differential Comment . Platelet Estimate Low L Platelet Morphology Normal Sodium 138 Potassium 3.6 Chloride 100 Carbon Dioxide 29.9 Anion Gap 8 BUN 26 H Creatinine 0.68 Estimated GFR Greater than 89 Random Glucose 141 H Calcium 8.1 L Magnesium 1.6 Lactate Dehydrogenase 534 H Microbiology 01/24/18 17:15 Fluid - Pleural fluid Fungal Smear - Final No fungal elements seen 01/24/18 17:15 Fluid - Pleural fluid Gram Stain - Final 01/24/18 17:15 Fluid - Pleural fluid Body Fluid Culture - Preliminary No growth in 24 hours Assessment and Plan - Plan LEFT PLEURAL EFFUSION METASTATIC [facility] PLAN O2 BRONCHODILATOR THERAPY PLEURODESIS BEFORE REMOVING TUBE
[2018-01-26] MEDS: Pantoprazole Inj 40 MG Vial IV.PUSH SCH ×2 (11:12→22:29)
--- NOTE | 2018-01-26 12:15 | P.PNIM ---
Subjective Interval history: requesting increased frequency/strength of pain medication. Physical Exam Vital signs: 01/26/18 08:00 Temperature Pulse Rate 96 H Respiratory Rate 21 Blood Pressure Pulse Oximetry 93 L Narrative: General: NAD, AAOx3 Chest: decreased air movement x b/l Cardiac: Regular Abd: +BS, soft ND/NT Ext: Left arm lymphedema/swelling and metastatic nodules on left arm/chest and abdomen wall. Results - Labs CBC & Chem 7: 01/26/18 05:30 01/26/18 05:30 Microbiology 01/24/18 17:15 Fluid - Pleural fluid Gram Stain - Final 01/24/18 17:15 Fluid - Pleural fluid Body Fluid Culture - Preliminary No growth in 48 hours 01/24/18 17:15 Fluid - Pleural fluid Fungal Smear - Final No fungal elements seen Assessment and Plan - Assessment (1) Metastatic squamous cell carcinoma Code(s): C79.9 - Secondary malignant neoplasm of unspecified site Status: Acute Plan: Stage IV metastatic SCC undergoing chemo and XRT metastatic disease involving left arm/lymphedema, left chest/abdomen wall - Chemotherapy and radiation are on hold - Pt remains aggressive and wants therapy. - Pt with severe left arm pain from lymphedema/tumor/ulceration - Cont. prn [place]. - Morphine not working. Dilaudid PRN. Discussed bp limitations - Also addressed code status and comfort care. He desires continued aggressive approach and full code. Acute on chronic anemia. acute blood loss from gib. gastric and duodenal ulcerations etoh abuse - Pt is 72 yo with stage 4 metastatic SCC felt to be lung primary. Had been undergoing chemoradiation. Pt has had multiple admissions recently for etoh abuse, acute gib, and pain and ulceration/cellulitis of left arm. Pt was just discharged this past weekend to snf after being admitted to ICU for acute GIB and hypotension. That admission was from 01/02 until 01/15. - Pt underwent EGD (01/03/18) --> the esophagus appeared to be unremarkable and within normal limits. small hiatal hernia with a linear ulceration in the gastric cardia possibly representing a Romie ulcer, no visible vessel, no active bleeding, but in the duodenum there were multiple ulcerations noted in the duodenal bulb and the descending duodenum most were superficial and clean based one was actively bleeding just distal to the ampulla a small vessel was noted and so a clip was placed and no further bleeding was noted biopsies were taken from the ulcer sites - Pt underwent repeat EGD (01/08/18) --> Mild gastritis and two duodenal ulcers with active bleeding s/p clipping. - Pt required blood transfusions of 12 units of PRBCs from 01/02-01/15 admission. He underwent bleeding scan on 01/14 negative for bleeding and so was sent to snf. - During the last hospitalization he was also treated for afib with rvr and copd exacerbations. - Pt presented back to the ED at [facility] [place] on 01/17/18 with complaints of SOB and left arm pain. Hgb noted to be 5 again. ED ordered 3 units blood. - Pt underwent repeat EGD 01/18/18 which noted bleeding ulcers. Pt then underwent successful GDA embolization in IR 01/18/18 - Pt received s/p 3 units prbc 01/17 - Repeat H/H on 01/20 with again a decreased Hgb to 6.7 - Pt to be transfused with another 2 units PRBCs on 01/20/18. No noted active GIB. ordered a unit if Platelets as well. - Hg 7.9 (01/25), 8.0 (01/26) - severe heartburn. - iv ppi and maalox. Pt likely will have ongoing blood loss - start fentanyl transdermal - increase norco to 10mg q4h prn - continue prn IV Dilaudid for breakthrough pain. COPD -pt with copd exacerbation cont nebs/solumedrol became acutely sob and moved to ICU on 01/21...improved with iv lasix and diuresis hold lasix and aggressively replace kcl today. pleural effusion, left - thoracentesis with placement of drainage catheter to pleurovac by Critical Care (01/24) - appreciate input from Dr. Ellis. Case d/w Dr. Ellis (01/25) - repeat CXR (01/25) --> decreased left pleural effusion - anticipate malignant effusion. Await pathology - anticipate talc pleurodesis with Dr. Ellis. - 350ml outpt from CT recorded for last shift - 250ml outpt from CT so far current shift - case d/w Oncology, Dr. Mckeon (01/26/18). He will consult. - AFIB - No anticoagulation due to bleeding. (2) GIB (gastrointestinal bleeding) Code(s): K92.2 - Gastrointestinal hemorrhage, unspecified Status: Acute (3) Gastric ulceration Code(s): K25.9 - Gastric ulcer, unspecified as acute or chronic, without hemorrhage or perforation Status: Acute (4) Duodenal ulceration Code(s): K26.9 - Duodenal ulcer, unspecified as acute or chronic, without hemorrhage or perforation Status: Acute (5) COPD (chronic obstructive pulmonary disease) Code(s): J44.9 - Chronic obstructive pulmonary disease, unspecified Status: Chronic (6) Afib Code(s): I48.91 - Unspecified atrial fibrillation Status: Chronic
[2018-01-26] MEDS: LORazepam 1 MG Tablet PO PRN ×2 (15:30→19:35)
[2018-01-27] MEDS: HYDROmorphone PF Inj 2 MG/ML Vial IV.PUSH PRN ×3 (04:32→18:17)
[2018-01-27] MEDS: Sodium Chloride 0.9% 2 ML Flush BID IV.FLUSH SCH ×2 (08:41→20:59)
[2018-01-27] MEDS: Senna/Docusate Sodium 8.6/50 MG Tablet PO SCH ×2 (08:41→20:58)
[2018-01-27] MEDS: Pantoprazole Inj 40 MG Vial IV.PUSH SCH ×2 (09:38→20:59)
--- NOTE | 2018-01-27 10:10 | FL ---
EXAM DATE: 01/27/2018 12:00 AM EDT AGE/SEX: 72 years / Male INDICATIONS: Dysphagia. CLINICAL DATA: This is the patient's subsequent encounter. Patient reports that signs and symptoms h ave been present for 1 day and indicates a pain score of 0/10. MEDICAL/SURGICAL HISTORY: Hiatal hernia. Gastroesophageal reflux disease. Hypertension. Mendez ett's esophagus. Squamous cell lung ca. Gastric ulcer. COPD . hernia repair. [place]. COMPARISON: [facility], CT SOFT TISSUE NECK W/ CONTRAST, 07/13/2017. . FLUORO TIME: 1.8 minutes IMAGE COUNT: 0 FINDINGS: A modified barium swallow was performed with speech pathology. Patient was given a variety of liquids to swallow. No evidence for aspiration. For a full detailed report, see report by the speech pathologist. CONCLUSION: 1. Speech barium swallow, as above. Electronically signed by: Que Nicole MD 01/27/2018 10:09 AM EDT
[2018-01-27] MEDS: MethylPREDNISolone Sod Succinate Inj 125 MG/2 ML Vial IV.PUSH SCH (10:59)
--- NOTE | 2018-01-27 11:28 | P.PNONC ---
Subjective Interval history: Patient resting in bed comfortably. Left chest tube to draining orange fluid. [facility] collection system full with fluid in every compartment. Patient reports an ease in breathing since having the chest tube placed. Still with left arm discomfort. Also reports throat pain when he swallows water. Objective Vital Signs/Intake & Output: Vital Signs 01/26/18 12:00 01/26/18 16:00 01/26/18 17:00 Temperature 98.7 F 98.6 F Pulse Rate 92 H 100 H 98 H Respiratory Rate 21 20 18 Blood Pressure 130/82 141/82 H Pulse Oximetry 93 L 94 L 01/26/18 17:23 01/26/18 18:00 01/26/18 19:00 Temperature Pulse Rate 92 H 101 H Respiratory Rate 18 Blood Pressure Pulse Oximetry 93 L 01/26/18 19:01 01/26/18 20:00 01/26/18 21:00 Temperature 98.1 F Pulse Rate 96 H 90 Respiratory Rate 21 18 Blood Pressure 127/76 Pulse Oximetry 99 01/26/18 22:00 01/26/18 23:00 01/27/18 00:00 Temperature 98.0 F Pulse Rate 100 H 107 H 101 H Respiratory Rate 18 16 Blood Pressure 151/90 H Pulse Oximetry 96 01/27/18 01:00 01/27/18 02:00 01/27/18 03:00 Temperature Pulse Rate 100 H 104 H 51 L Respiratory Rate 18 Blood Pressure Pulse Oximetry 01/27/18 04:00 01/27/18 05:00 01/27/18 06:00 Temperature 98.2 F Pulse Rate 98 H 110 H 98 H Respiratory Rate 14 Blood Pressure 141/86 H Pulse Oximetry 96 01/27/18 07:00 01/27/18 08:00 01/27/18 08:32 Temperature 97.7 F Pulse Rate 101 H 98 H Respiratory Rate 16 Blood Pressure 132/71 Pulse Oximetry 99 96 Intake & Output 01/26/18 01/27/18 01/27/18 18:59 06:59 18:59 Intake Total 120 / 120 240 / 240 Output Total 250 / 250 680 / 680 Balance -130 / -130 -440 / -440 Weight 91.5 kg Intake: Oral 120 / 120 240 / 240 Output: Urine 100 / 100 350 / 350 Chest Tube Drainage 150 / 150 330 / 330 #1 Left 150 / 150 330 / 330 Other: Date of Last Bowel Movement 01/25/18 Result Diagrams: 01/26/18 05:30 01/26/18 05:30 Culture Results: Microbiology 01/24/18 17:15 Gram Stain - Final Fluid - Pleural fluid Body Fluid Culture - Final No growth in 72 hours (aerobically and anaerobically) 01/24/18 17:15 Fungal Smear - Final Fluid - Pleural fluid No fungal elements seen Imaging Studies: Impressions Videofluoroscopic Swallow 01/27/18 00:00 CONCLUSION: 1. Speech barium swallow, as above. Medications: Active Medications Generic Name Dose Route Start Last Admin Trade Name Freq PRN Reason Stop Dose Admin Albuterol 1 ampul 01/17/18 19:00 01/25/18 23:01 Duoneb Neb (Prn) NEB 1 ampul Q2HR NEB PRN Administration WHEEZING Fentanyl 1 patch 01/26/18 13:00 01/26/18 15:30 Duragesic 50 Mcg Patch.72hr T-DERMAL 1 patch Q3D KTAIE Administration Hydromorphone HCl 1 mg 01/18/18 11:02 01/27/18 08:42 Dilaudid Pf Inj IV.PUSH 1 mg Q4H PRN Administration breakthrough pain above 7 Lorazepam 1 mg 01/26/18 12:27 01/26/18 19:35 Ativan PO 1 mg Q4H PRN Administration ANXIETY Methylprednisolone Sodium Succinate 60 mg 01/26/18 23:00 01/27/18 10:59 Solumedrol Inj IV.PUSH 60 mg Q12H KATIE Administration Ondansetron HCl 4 mg 01/17/18 18:00 01/23/18 09:43 Zofran Inj IV.PUSH 4 mg Q6H PRN Administration NAUSEA OR VOMITING Pantoprazole Sodium 40 mg 01/23/18 10:00 01/27/18 09:38 Protonix Inj IV.PUSH 40 mg Q12H KATIE Administration Senna/Docusate Sodium 1 tab 01/17/18 21:00 01/27/18 08:41 Merced-Colace PO Not Given BID KATIE Sodium Chloride 2 ml 01/22/18 09:00 01/27/18 08:41 Ns Flush IV.FLUSH 2 ml BID KATIE Administration Objective Remarks: GENERAL: Chronically ill-appearing male patient, in no acute distress. SKIN: Warm and dry. Multiple nodules to left chest and left arm. Left arm with hardened skin s/p radiation. Gauze dressing intact to left arm. HEAD: Normocephalic. EYES: No scleral icterus. No injection or drainage. NECK: Supple, trachea midline. CARDIOVASCULAR: Regular rate and rhythm without murmurs. RESPIRATORY: Breath sounds equal bilaterally. Scattered rhonchi to right lobes, mild expiratory wheezes. No accessory muscle use. Left chest tube, draining orange clear fluid. GASTROINTESTINAL: Abdomen soft, non-tender, nondistended. EXTREMITIES: No cyanosis. LUE 1+pitting edema. BLE 1+pitting edema. MUSCULOSKELETAL: Adequate muscle tone. NEUROLOGICAL: No obvious focal deficit. Awake, alert, and oriented x3. PSYCHIATRIC: Appropriate mood and affect; insight and judgment normal. Assessment/Plan - Plan Mr. 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 The patient was recently hospitalized with ongoing GI bleeds requiring numerous blood transfusions. Chemotherapy and radiation were on hold. The patient desired continued aggressive treatment. He was discharged to a SNF and represented to the emergency department with increasing shortness of breath. Patient was found to be anemic with a hemoglobin of 5.9. He received multiple blood transfusions, has underwent multiple GI procedures. Oncology was consulted for his history of metastatic SCC. Plan: 1. Stage IV metastatic SCC, involving left arm, chest wall and abdominal wall. Patient underwent chemotherapy and radiation, which are currently on hold due to his severe anemia and continued GI bleeds. 2. Severe anemia, hemoglobin on admission was 5.9. Patient has received 5 units of PRBCs, the last 2 units being on 01/18/2018. Hemoglobin on 01/26/2018 was 8.0. 3. Thrombocytopenia, platelet count 28,000 on arrival. Patient has received 4 units of platelets, the last 2 units being on 01/24/2018. Platelet count on 01/2018 was 76,000. Continue to monitor. 4. Continue to monitor daily CBC. Plan to transfuse PRBCs for hemoglobin less than 7 or active bleeding. Plan to transfuse platelets for platelet count less than 20,000 or active bleeding. 5. We will repeat CBC in the a.m. 6. Continue supportive care. - Attending Statement Pt. seen in 244. Agree with recommendations. Long discussion with pt. Not a candidate for systemic therapy at this time for mets SCC. Per d/w hospitalist yesterday, agree with pleurodesis after checking pleural fluid cytology. Will follow up.
--- NOTE | 2018-01-27 16:38 | P.PNIM ---
Subjective Interval history: No new complaints. Physical Exam Vital signs: 01/27/18 08:32 01/27/18 11:00 01/27/18 11:43 Temperature 98 F Pulse Rate 118 H 107 H Respiratory Rate 18 Blood Pressure 106/66 Pulse Oximetry 96 97 Narrative: General: NAD, AAOx3 Chest: decreased air movement x b/l left chest tube Cardiac: Regular Abd: +BS, soft ND/NT Ext: Left arm lymphedema/swelling and metastatic nodules on left arm/chest and abdomen wall. Results - Labs CBC & Chem 7: 01/30/18 05:15 01/29/18 05:00 Microbiology 01/24/18 17:15 Fluid - Pleural fluid Gram Stain - Final 01/24/18 17:15 Fluid - Pleural fluid Body Fluid Culture - Final No growth in 72 hours (aerobically and anaerobically ) Assessment and Plan - Assessment (1) Metastatic squamous cell carcinoma Code(s): C79.9 - Secondary malignant neoplasm of unspecified site Status: Acute Plan: Stage IV metastatic SCC undergoing chemo and XRT metastatic disease involving left arm/lymphedema, left chest/abdomen wall - Chemotherapy and radiation are on hold - Pt remains aggressive and wants therapy. - Pt with severe left arm pain from lymphedema/tumor/ulceration - Cont. prn [place]. - Morphine not working. Dilaudid PRN. Discussed bp limitations - Also addressed code status and comfort care. He desires continued aggressive approach and full code. Acute on chronic anemia. acute blood loss from gib. gastric and duodenal ulcerations etoh abuse - Pt is 72 yo with stage 4 metastatic SCC felt to be lung primary. Had been undergoing chemoradiation. Pt has had multiple admissions recently for etoh abuse, acute gib, and pain and ulceration/cellulitis of left arm. Pt was just discharged this past weekend to snf after being admitted to ICU for acute GIB and hypotension. That admission was from 01/02 until 01/15. - Pt underwent EGD (01/03/18) --> the esophagus appeared to be unremarkable and within normal limits. small hiatal hernia with a linear ulceration in the gastric cardia possibly representing a Romie ulcer, no visible vessel, no active bleeding, but in the duodenum there were multiple ulcerations noted in the duodenal bulb and the descending duodenum most were superficial and clean based one was actively bleeding just distal to the ampulla a small vessel was noted and so a clip was placed and no further bleeding was noted biopsies were taken from the ulcer sites - Pt underwent repeat EGD (01/08/18) --> Mild gastritis and two duodenal ulcers with active bleeding s/p clipping. - Pt required blood transfusions of 12 units of PRBCs from 01/02-01/15 admission. He underwent bleeding scan on 01/14 negative for bleeding and so was sent to snf. - During the last hospitalization he was also treated for afib with rvr and copd exacerbations. - Pt presented back to the ED at [facility] [place] [facility] on 01/17/18 with complaints of SOB and left arm pain. Hgb noted to be 5 again. ED ordered 3 units blood. - Pt underwent repeat EGD 01/18/18 which noted bleeding ulcers. Pt then underwent successful GDA embolization in IR 01/18/18 - Pt received s/p 3 units prbc 01/17 - Repeat H/H on 01/20 with again a decreased Hgb to 6.7 - Pt to be transfused with another 2 units PRBCs on 01/20/18. No noted active GIB. ordered a unit if Platelets as well. - Hg 7.9 (01/25), 8.0 (01/26) - severe heartburn. - iv ppi and maalox. Pt likely will have ongoing blood loss - fentanyl transdermal - norco 10mg q4h prn - continue prn IV Dilaudid for breakthrough pain. COPD -pt with copd exacerbation cont nebs/solumedrol became acutely sob and moved to ICU on 01/21...improved with iv lasix and diuresis hold lasix and aggressively replace kcl today. pleural effusion, left - thoracentesis with placement of drainage catheter to pleurovac by Critical Care (01/24) - appreciate input from Dr. Ellis. Case d/w Dr. Ellis (01/25) - repeat CXR (01/25) --> decreased left pleural effusion - anticipate malignant effusion. - pathology: groups of atypical cells suspicious for malignancy - Pt continues with high volume output from Chest tube - Request pleurx catheter with IR - case d/w Oncology, Dr. Mckeon (01/26/18). He will consult. AFIB - No anticoagulation due to bleeding. (2) GIB (gastrointestinal bleeding) Code(s): K92.2 - Gastrointestinal hemorrhage, unspecified Status: Acute (3) Gastric ulceration Code(s): K25.9 - Gastric ulcer, unspecified as acute or chronic, without hemorrhage or perforation Status: Acute (4) Duodenal ulceration Code(s): K26.9 - Duodenal ulcer, unspecified as acute or chronic, without hemorrhage or perforation Status: Acute (5) COPD (chronic obstructive pulmonary disease) Code(s): J44.9 - Chronic obstructive pulmonary disease, unspecified Status: Chronic (6) Afib Code(s): I48.91 - Unspecified atrial fibrillation Status: Chronic
[2018-01-27] MEDS: LORazepam 1 MG Tablet PO PRN (18:12)
--- NOTE | 2018-01-27 18:36 | P.PN ---
Subjective Interval history: alert nad Physical Exam Vital signs: Vital Signs 01/26/18 19:00 01/26/18 19:01 01/26/18 20:00 Temperature 98.1 F Pulse Rate 101 H 96 H Respiratory Rate 18 21 18 Blood Pressure 127/76 Pulse Oximetry 99 01/26/18 21:00 01/26/18 22:00 01/26/18 23:00 Temperature Pulse Rate 90 100 H 107 H Respiratory Rate 18 Blood Pressure Pulse Oximetry 01/27/18 00:00 01/27/18 01:00 01/27/18 02:00 Temperature 98.0 F Pulse Rate 101 H 100 H 104 H Respiratory Rate 16 Blood Pressure 151/90 H Pulse Oximetry 96 01/27/18 03:00 01/27/18 04:00 01/27/18 05:00 Temperature 98.2 F Pulse Rate 51 L 98 H 110 H Respiratory Rate 18 14 Blood Pressure 141/86 H Pulse Oximetry 96 01/27/18 06:00 01/27/18 07:00 01/27/18 08:00 Temperature 97.7 F Pulse Rate 98 H 101 H 98 H Respiratory Rate 16 Blood Pressure 132/71 Pulse Oximetry 99 01/27/18 08:32 01/27/18 11:00 01/27/18 11:43 Temperature 98 F Pulse Rate 118 H 107 H Respiratory Rate 18 Blood Pressure 106/66 Pulse Oximetry 96 97 01/27/18 15:00 01/27/18 16:00 01/27/18 16:07 Temperature 98.3 F Pulse Rate 103 H 93 H Respiratory Rate 20 20 Blood Pressure 116/70 Pulse Oximetry 97 Intake & Output 01/26/18 01/27/18 01/27/18 18:59 06:59 18:59 Intake Total 120 / 120 240 / 240 680 / 680 Output Total 250 / 250 680 / 680 560 / 560 Balance -130 / -130 -440 / -440 120 / 120 Weight 91.5 kg Intake: Oral 120 / 120 240 / 240 680 / 680 Output: Urine 100 / 100 350 / 350 320 / 320 Chest Tube Drainage 150 / 150 330 / 330 240 / 240 #1 Left 150 / 150 330 / 330 240 / 240 Other: Date of Last Bowel Movement 01/25/18 Narrative: General: NAD, AAOx3 Chest: decreased air movement x b/l left chest tube Cardiac: Regular Abd: +BS, soft ND/NT Ext: Left arm lymphedema/swelling and metastatic nodules on left arm/chest and abdomen wall. Results - Labs CBC & Chem 7: 01/26/18 05:30 01/26/18 05:30 Microbiology 01/24/18 17:15 Fluid - Pleural fluid Gram Stain - Final 01/24/18 17:15 Fluid - Pleural fluid Body Fluid Culture - Final No growth in 72 hours (aerobically and anaerobically ) - Imaging Impressions Videofluoroscopic Swallow 01/27/18 00:00 CONCLUSION: 1. Speech barium swallow, as above. Assessment and Plan - Plan LEFT PLEURAL EFFUSION METASTATIC [facility] PLAN O2 BRONCHODILATOR THERAPY PLEURODESIS BEFORE REMOVING TUBE
[2018-01-28] MEDS: HYDROmorphone PF Inj 2 MG/ML Vial IV.PUSH PRN ×3 (01:26→15:52)
[2018-01-28] MEDS: MethylPREDNISolone Sod Succinate Inj 125 MG/2 ML Vial IV.PUSH SCH ×2 (01:26→10:30)
[2018-01-28] MEDS: Senna/Docusate Sodium 8.6/50 MG Tablet PO SCH ×2 (08:33→22:21)
[2018-01-28] MEDS: Sodium Chloride 0.9% 2 ML Flush BID IV.FLUSH SCH ×2 (08:57→22:22)
[2018-01-28 10:24] LABS: Baso % (Auto) 0.3 % (0.0-2.0); Hematocrit 25.8 % (39.0-51.0); Hemoglobin 8.9 gm/dL (13.0-17.0); Lymph # (Auto) 0.1 th/mm3 (1.0-4.8); Lymph % (Auto) 2.8 % (9.0-44.0); Mean Corpuscular HGB Conc 34.5 % (32.0-36.0); Mean Corpuscular Hemoglobin 31.6 pg (27.0-34.0); Mean Corpuscular Volume 91.6 fL (80.0-100.0); Mean Platelet Volume 7.4 fL (7.0-11.0); Mono # (Auto) 0.1 th/mm3 (0.0-0.9); Mono % (Auto) 4.2 % (0.0-8.0); Neut # (Auto) 3.2 th/mm3 (1.8-7.7); Neut % (Auto) 92.7 % (16.0-70.0); Platelet Count 41 th/mm3 (150-450); Red Blood Count 2.82 mil/mm3 (4.50-5.90); Red Cell Distribution Width 16.1 % (11.6-17.2); White Blood Count 3.4 th/mm3 (4.0-11.0)
[2018-01-28] MEDS: Pantoprazole Inj 40 MG Vial IV.PUSH SCH ×2 (10:30→22:22)
[2018-01-28 10:58] LABS: Alanine Aminotransferase 18 U/L (12-78); Anion Gap 12 meq/L (5-15); Aspartate Aminotransferase 30 U/L (15-37); Blood Urea Nitrogen 22 mg/dL (7-18); Calcium 7.6 mg/dL (8.5-10.1); Chloride 99 meq/L (98-107); Glomerular Filtration Rate Greater Than 89 mL/min (>89); Glucose,Random 104 mg/dL (74-106); Potassium 3.8 meq/L (3.5-5.1); Sodium 141 meq/L (136-145)
[2018-01-28 11:01] LABS: Alkaline Phosphatase 48 U/L (45-117); Total Protein 4.5 g/dL (6.4-8.2)
[2018-01-28 11:23] LABS: Lymphocytes 2 % (9-44); Monocytes 6 % (0-8); Tallied Nucleated RBC 1 (0-0); Toxic Granulation 1+
[2018-01-28 11:46] LABS: Platelet Morphology Normal (Normal)
--- NOTE | 2018-01-28 15:40 | P.PNONC ---
Subjective Interval history: "I am just trying to take one day of time" Afebrile Patient reports he is having a difficult time swallowing Reports his entire chest hurts when he tries to swallow a bite of his meal States this is somewhat improved after he has something for pain Objective Vital Signs/Intake & Output: Vital Signs 01/27/18 16:00 01/27/18 16:07 01/27/18 19:00 Temperature 98.3 F Pulse Rate 93 H Respiratory Rate 20 20 20 Blood Pressure 116/70 Pulse Oximetry 97 01/27/18 20:00 01/27/18 20:54 01/27/18 23:00 Temperature 98.0 F Pulse Rate 113 H Respiratory Rate 20 20 20 Blood Pressure 132/85 Pulse Oximetry 97 01/28/18 00:00 01/28/18 00:34 01/28/18 02:59 Temperature Pulse Rate 95 H 79 Respiratory Rate 20 22 20 Blood Pressure 106/69 Pulse Oximetry 93 L 01/28/18 03:00 01/28/18 04:00 01/28/18 06:20 Temperature Pulse Rate 117 H 116 H Respiratory Rate 20 20 22 Blood Pressure 142/81 H Pulse Oximetry 96 01/28/18 07:49 01/28/18 08:00 01/28/18 09:10 Temperature 98.3 F Pulse Rate 96 H Respiratory Rate 22 22 18 Blood Pressure 106/60 Pulse Oximetry 97 01/28/18 10:17 01/28/18 12:00 01/28/18 12:23 Temperature 98.0 F Pulse Rate 110 H Respiratory Rate 20 18 Blood Pressure 116/74 Pulse Oximetry 96 99 01/28/18 12:55 01/28/18 15:00 Temperature Pulse Rate Respiratory Rate 18 18 Blood Pressure Pulse Oximetry Intake & Output 01/27/18 01/28/18 01/28/18 18:59 06:59 18:59 Intake Total 680 / 680 240 / 240 Output Total 560 / 560 150 / 150 Balance 120 / 120 90 / 90 Weight 197 lb 15.602 oz Intake: Oral 680 / 680 240 / 240 Output: Urine 320 / 320 150 / 150 Chest Tube Drainage 240 / 240 #1 Left 240 / 240 Other: # Voids 2 Date of Last Bowel Movement 01/25/18 01/25/18 Result Diagrams: 01/28/18 06:26 01/28/18 06:26 Laboratory Results: Laboratory Results - last 24 hr 01/28/18 01/28/18 06:26 06:26 WBC 3.4 L RBC 2.82 L Hgb 8.9 L Hct 25.8 L MCV 91.6 MCH 31.6 MCHC 34.5 RDW 16.1 Plt Count 41 L D MPV 7.4 Prelim Diff (Auto) Slide review pending Neut % (Auto) 92.7 H Lymph % (Auto) 2.8 L [place] % (Auto) 4.2 Eos % (Auto) 0.0 Baso % (Auto) 0.3 Neut # (Auto) 3.2 Lymph # (Auto) 0.1 L [place] # (Auto) 0.1 Eos # (Auto) 0.0 Baso # (Auto) 0.0 WBC Differential Manual diff final Seg Neuts % (Manual) 81 H Band Neuts % (Manual) 11 H Lymphocytes % (Manual) 2 L Monocytes % (Manual) 6 Abs Neuts (Manual) 3.1 Nucleated RBCs/100 WBC 1 H Differential Comment . Toxic Granulation 1+ H Platelet Estimate Low L Platelet Morphology Normal Sodium 141 Potassium 3.8 Chloride 99 Carbon Dioxide 30.0 Anion Gap 12 BUN 22 H Creatinine 0.63 Estimated GFR Greater than 89 Random Glucose 104 Calcium 7.6 L Total Bilirubin 0.6 AST 30 ALT 18 Alkaline Phosphatase 48 Total Protein 4.5 L D Albumin 2.0 L Culture Results: Microbiology 01/24/18 17:15 Gram Stain - Final Fluid - Pleural fluid Body Fluid Culture - Final No growth in 72 hours (aerobically and anaerobically) 01/24/18 17:15 Fungal Smear - Final Fluid - Pleural fluid No fungal elements seen Medications: Active Medications Generic Name Dose Route Start Last Admin Trade Name Freq PRN Reason Stop Dose Admin Hydrocodone Bitart/Acetaminophen 1 tab 01/26/18 12:26 01/28/18 12:23 [place] 10/325 PO 1 tab Q4H PRN Administration pain 1 - 10. Albuterol 1 ampul 01/17/18 19:00 01/28/18 06:19 Duoneb Neb (Prn) NEB 1 ampul Q2HR NEB PRN Administration WHEEZING Fentanyl 1 patch 01/26/18 13:00 01/26/18 15:30 Duragesic 50 Mcg Patch.72hr T-DERMAL 1 patch Q3D KATIE Administration Hydromorphone HCl 1 mg 01/18/18 11:02 01/28/18 08:34 Dilaudid Pf Inj IV.PUSH 1 mg Q4H PRN Administration breakthrough pain above 7 Lorazepam 1 mg 01/26/18 12:27 01/27/18 18:12 Ativan PO 1 mg Q4H PRN Administration ANXIETY Methylprednisolone Sodium Succinate 60 mg 01/26/18 23:00 01/28/18 10:30 Solumedrol Inj IV.PUSH 60 mg Q12H KATIE Administration Ondansetron HCl 4 mg 01/17/18 18:00 01/23/18 09:43 Zofran Inj IV.PUSH 4 mg Q6H PRN Administration NAUSEA OR VOMITING Pantoprazole Sodium 40 mg 01/23/18 10:00 01/28/18 10:30 Protonix Inj IV.PUSH 40 mg Q12H KATIE Administration Senna/Docusate Sodium 1 tab 01/17/18 21:00 01/28/18 08:33 Mer[place]-Colace PO 1 tab BID KATIE Administration Sodium Chloride 2 ml 01/22/18 09:00 01/28/18 08:57 Ns Flush IV.FLUSH 2 ml BID KATIE Administration Objective Remarks: GENERAL: Chronically ill-appearing male patient, in no acute distress. SKIN: Warm and dry. Multiple nodules to left chest and left arm. Left arm with hardened skin s/p radiation. Gauze dressing intact to left arm. HEAD: Normocephalic. EYES: No scleral icterus. No injection or drainage. NECK: Supple, trachea midline. CARDIOVASCULAR: Regular rate and rhythm without murmurs. RESPIRATORY: Breath sounds equal bilaterally. Scattered rhonchi to right lobes, mild expiratory wheezes. No accessory muscle use. Left chest tube, draining orange clear fluid. GASTROINTESTINAL: Abdomen soft, non-tender, nondistended. EXTREMITIES: No cyanosis. LUE 2+pitting edema. BLE 1+pitting edema. MUSCULOSKELETAL: Adequate muscle tone. NEUROLOGICAL: No obvious focal deficit. Awake, alert, and oriented x3. Assessment/Plan - Plan Mr. 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 The patient was recently hospitalized with ongoing GI bleeds requiring numerous blood transfusions. Chemotherapy and radiation were on hold. The patient desired continued aggressive treatment. He was discharged to a SNF and represented to the emergency department with increasing shortness of breath. Patient was found to be anemic with a hemoglobin of 5.9. He received multiple blood transfusions, has underwent multiple GI procedures. Oncology was consulted for his history of metastatic SCC. Plan: 1. Further chemotherapy for squamous cell carcinoma currently on hold due to repeated GI bleeding and poor performance status. 2. His hemoglobin is noted to be stable/slightly improved at 8.9 today. Platelet count trending down after transfusion to 41,000 today. No bleeding. We will continue to monitor CBC. 3. Supportive care
--- NOTE | 2018-01-28 15:42 | MB ---
cc: Solo Mckeon MD DATE: 01/28/2018 HISTORY OF PRESENT ILLNESS: Mr. Calderon is more comfortable today. He is seen in room 244. His is by his bedside. He has no new complaints, but he is waiting for the pleurodesis. He is not having any bleeding or bruising of new onset. No blood in the stool or black stools. The patient not examined today. I reviewed his labs and treatment options with him. IMPRESSION AND PLAN: Malignant pleural effusion with a history of metastatic squamous cell carcinoma. Chest tube in place with no evidence of bleeding. Pleurodesis planned. Gastrointestinal bleeding seems to be stable. His hemoglobin is stable and seems to be improving. His platelets are dropping again, but he is not bleeding actively. We will continue to watch that and we will follow him up after the pleurodesis. If the platelet count is less than 50,000 at the time of pleurodesis, he will benefit from having another platelet transfusion at that time. We will follow him up in the hospital. MD CHRIS Welsh/kevin , 03:28 PM , 03:34 PM
[2018-01-28] MEDS ORDERED: HYDROmorphone PF Inj 2 MG/ML Vial IV.PUSH PRN (18:04)
--- NOTE | 2018-01-28 18:10 | P.PNIM ---
Subjective Interval history: No new complaints. Physical Exam Vital signs: 01/28/18 15:36 01/28/18 16:00 01/28/18 17:10 Temperature 98.4 F Pulse Rate 95 H 101 H Respiratory Rate 22 18 18 Blood Pressure 120/60 Pulse Oximetry 98 Narrative: General: NAD, AAOx3 Chest: decreased air movement x b/l left chest tube Cardiac: Regular Abd: +BS, soft ND/NT Ext: Left arm lymphedema/swelling and metastatic nodules on left arm/chest and abdomen wall. Results - Labs CBC & Chem 7: 01/30/18 05:15 01/29/18 05:00 Assessment and Plan - Assessment (1) Metastatic squamous cell carcinoma Code(s): C79.9 - Secondary malignant neoplasm of unspecified site Status: Acute Plan: Stage IV metastatic SCC undergoing chemo and XRT metastatic disease involving left arm/lymphedema, left chest/abdomen wall - Chemotherapy and radiation are on hold - Pt remains aggressive and wants therapy. - Pt with severe left arm pain from lymphedema/tumor/ulceration - Cont. prn [place]. - Morphine not working. Dilaudid PRN. Discussed bp limitations - Also addressed code status and comfort care. He desires continued aggressive approach and full code. Acute on chronic anemia. acute blood loss from gib. gastric and duodenal ulcerations etoh abuse - Pt is 72 yo with stage 4 metastatic SCC felt to be lung primary. Had been undergoing chemoradiation. Pt has had multiple admissions recently for etoh abuse, acute gib, and pain and ulceration/cellulitis of left arm. Pt was just discharged this past weekend to snf after being admitted to ICU for acute GIB and hypotension. That admission was from 01/02 until 01/15. - Pt underwent EGD (01/03/18) --> the esophagus appeared to be unremarkable and within normal limits. small hiatal hernia with a linear ulceration in the gastric cardia possibly representing a Romie ulcer, no visible vessel, no active bleeding, but in the duodenum there were multiple ulcerations noted in the duodenal bulb and the descending duodenum most were superficial and clean based one was actively bleeding just distal to the ampulla a small vessel was noted and so a clip was placed and no further bleeding was noted biopsies were taken from the ulcer sites - Pt underwent repeat EGD (01/08/18) --> Mild gastritis and two duodenal ulcers with active bleeding s/p clipping. - Pt required blood transfusions of 12 units of PRBCs from 01/02-01/15 admission. He underwent bleeding scan on 01/14 negative for bleeding and so was sent to snf. - During the last hospitalization he was also treated for afib with rvr and copd exacerbations. - Pt presented back to the ED [place] [facility] [place]18 with complaints of SOB and left arm pain. Hgb noted to be 5 again. ED ordered 3 units blood. - Pt underwent repeat EGD 01/18/18 which noted bleeding ulcers. Pt then underwent successful GDA embolization in IR 01/18/18 - Pt received s/p 3 units prbc 01/17 - Repeat H/H on 01/20 with again a decreased Hgb to 6.7 - Pt to be transfused with another 2 units PRBCs on 01/20/18. No noted active GIB. ordered a unit if Platelets as well. - Hg 7.9 (01/25), 8.0 (01/26), 8.9 (01/28) - severe heartburn. - iv ppi and maalox. Pt likely will have ongoing blood loss - fentanyl transdermal, increase to 100mcg (01/28/18) - norco 10mg q4h prn - decrease IV Dilaudid to 0.5mg q6h prn for breakthrough pain. - Pt does NOT want to return to SNF - Pain control is very important to pt. - Pt requesting Hospice Consult. - will discuss code status with pt 01/29 COPD -pt with copd exacerbation cont nebs - solumedrol --> change to PO prednisone (01/28) - became acutely sob and moved to ICU on 01/21...improved with iv lasix and diuresis pleural effusion, left - thoracentesis with placement of drainage catheter to pleurovac by Critical Care (01/24) - appreciate input from Dr. Ellis. Case d/w Dr. Ellis (01/25) - repeat CXR (01/25) --> decreased left pleural effusion - pathology: groups of atypical cells suspicious for malignancy - Chest tube output: 20ml overnight, 90 ml so far today. - Talc pleurodesis 01/31/18 - case d/w Oncology, Dr. Mckeon (01/26/18). He will consult. - anticipate d/c to SNF [facility]/Wednesday AFIB - No anticoagulation due to bleeding. (2) GIB (gastrointestinal bleeding) Code(s): K92.2 - Gastrointestinal hemorrhage, unspecified Status: Acute (3) Gastric ulceration Code(s): K25.9 - Gastric ulcer, unspecified as acute or chronic, without hemorrhage or perforation Status: Acute (4) Duodenal ulceration Code(s): K26.9 - Duodenal ulcer, unspecified as acute or chronic, without hemorrhage or perforation Status: Acute (5) COPD (chronic obstructive pulmonary disease) Code(s): J44.9 - Chronic obstructive pulmonary disease, unspecified Status: Chronic (6) Afib Code(s): I48.91 - Unspecified atrial fibrillation Status: Chronic
[2018-01-28] MEDS: LORazepam 1 MG Tablet PO PRN (18:45)
[2018-01-28] MEDS: predniSONE 20 MG Tablet PO SCH (22:22)
[2018-01-29 05:26] LABS: Baso % (Auto) 0.3 % (0.0-2.0); Hematocrit 23.9 % (39.0-51.0); Hemoglobin 8.2 gm/dL (13.0-17.0); Lymph # (Auto) 0.1 th/mm3 (1.0-4.8); Lymph % (Auto) 4.3 % (9.0-44.0); Mean Corpuscular HGB Conc 34.4 % (32.0-36.0); Mean Corpuscular Hemoglobin 31.4 pg (27.0-34.0); Mean Corpuscular Volume 91.3 fL (80.0-100.0); Mean Platelet Volume 7.1 fL (7.0-11.0); Mono # (Auto) 0.1 th/mm3 (0.0-0.9); Mono % (Auto) 5.3 % (0.0-8.0); Neut # (Auto) 2.5 th/mm3 (1.8-7.7); Neut % (Auto) 90.1 % (16.0-70.0); Platelet Count 26 th/mm3 (150-450); Red Blood Count 2.62 mil/mm3 (4.50-5.90); Red Cell Distribution Width 16.2 % (11.6-17.2); White Blood Count 2.8 th/mm3 (4.0-11.0)
[2018-01-29 05:50] LABS: Alanine Aminotransferase 15 U/L (12-78); Albumin 1.7 g/dL (3.4-5.0); Anion Gap 10 meq/L (5-15); Aspartate Aminotransferase 36 U/L (15-37); Blood Urea Nitrogen 20 mg/dL (7-18); Calcium 7.5 mg/dL (8.5-10.1); Carbon Dioxide 30.1 meq/L (21.0-32.0); Chloride 101 meq/L (98-107); Glomerular Filtration Rate Greater Than 89 mL/min (>89); Glucose,Random 122 mg/dL (74-106); Potassium 3.8 meq/L (3.5-5.1); Sodium 141 meq/L (136-145)
[2018-01-29 05:52] LABS: Alkaline Phosphatase 43 U/L (45-117); Total Protein 4.3 g/dL (6.4-8.2)
[2018-01-29 05:53] LABS: Ovalocytes 1+; Platelet Morphology Normal (Normal)
[2018-01-29] MEDS: Pantoprazole Inj 40 MG Vial IV.PUSH SCH ×2 (09:26→21:33)
[2018-01-29] MEDS: Senna/Docusate Sodium 8.6/50 MG Tablet PO SCH ×2 (09:26→21:34)
[2018-01-29] MEDS: predniSONE 20 MG Tablet PO SCH ×2 (09:26→21:33)
--- NOTE | 2018-01-29 11:16 | P.PNONC ---
Subjective Interval history: Afebrile. Patient sitting up in bed. He reports feeling confused today. He states he has a loss for words. When asked how long this is been going on he states for the last several days. He is oriented to person and place, he thought it was later in the afternoon- contributing this to possibly dozing off. Remains with pain to his left arm. Left chest tube in place draining yellow clear fluid. Objective Vital Signs/Intake & Output: Vital Signs 01/28/18 12:00 01/28/18 12:23 01/28/18 12:55 Temperature 98.0 F Pulse Rate 110 H Respiratory Rate 20 18 18 Blood Pressure 116/74 Pulse Oximetry 99 01/28/18 15:00 01/28/18 15:36 01/28/18 16:00 Temperature 98.4 F Pulse Rate 95 H 101 H Respiratory Rate 18 22 18 Blood Pressure 120/60 Pulse Oximetry 98 01/28/18 16:30 01/28/18 17:10 01/28/18 17:45 Temperature Pulse Rate Respiratory Rate 18 18 20 Blood Pressure Pulse Oximetry 01/28/18 20:00 01/28/18 23:12 01/28/18 23:13 Temperature 97.5 F L Pulse Rate 106 H 103 H Respiratory Rate 20 27 H Blood Pressure 139/65 Pulse Oximetry 96 98 01/29/18 00:00 01/29/18 03:33 01/29/18 03:49 Temperature 97.8 F 97.4 F L Pulse Rate 92 H 125 H 96 H Respiratory Rate 18 35 H 20 Blood Pressure 113/60 133/81 Pulse Oximetry 96 95 01/29/18 09:26 01/29/18 09:33 Temperature Pulse Rate 90 Respiratory Rate 20 18 Blood Pressure Pulse Oximetry 95 Intake & Output 01/28/18 01/29/18 01/29/18 18:59 06:59 18:59 Intake Total 960 / 960 240 / 240 Output Total 290 / 290 100 / 100 Balance 670 / 670 140 / 140 Weight 89.5 kg Intake: Oral 960 / 960 240 / 240 Output: Urine 200 / 200 100 / 100 Chest Tube Drainage 90 / 90 #1 Left 90 / 90 Other: Date of Last Bowel Movement 01/25/18 01/25/18 Result Diagrams: 01/29/18 05:00 01/29/18 05:00 Laboratory Results: Laboratory Results - last 24 hr 10/12/18 10/13/18 10/13/18 06:26 05:00 05:00 WBC 2.8 L RBC 2.62 L Hgb 8.2 L Hct 23.9 L MCV 91.3 MCH 31.4 MCHC 34.4 RDW 16.2 Plt Count 26 L D MPV 7.1 Prelim Diff (Auto) Slide review pending Neut % (Auto) 90.1 H Lymph % (Auto) 4.3 L [place] % (Auto) 5.3 Eos % (Auto) 0.0 Baso % (Auto) 0.3 Neut # (Auto) 2.5 Lymph # (Auto) 0.1 L [place] # (Auto) 0.1 Eos # (Auto) 0.0 Baso # (Auto) 0.0 WBC Differential Manual diff final . Diff Scan Auto diff confirmed Seg Neuts % (Manual) 81 H Band Neuts % (Manual) 11 H Lymphocytes % (Manual) 2 L Monocytes % (Manual) 6 Abs Neuts (Manual) 3.1 Nucleated RBCs/100 WBC 1 H Differential Comment . Toxic Granulation 1+ H Platelet Estimate Low L Low L Platelet Morphology Normal Normal Ovalocytes 1+ H Sodium 141 Potassium 3.8 Chloride 101 Carbon Dioxide 30.1 Anion Gap 10 BUN 20 H Creatinine 0.60 Estimated GFR Greater than 89 Random Glucose 122 H Calcium 7.5 L Total Bilirubin 0.5 AST 36 ALT 15 Alkaline Phosphatase 43 L Total Protein 4.3 L Albumin 1.7 L Culture Results: Microbiology 01/24/18 17:15 Gram Stain - Final Fluid - Pleural fluid Body Fluid Culture - Final No growth in 72 hours (aerobically and anaerobically) Medications: Active Medications Generic Name Dose Route Start Last Admin Trade Name Freq PRN Reason Stop Dose Admin Hydrocodone Bitart/Acetaminophen 1 tab 01/26/18 12:26 01/29/18 09:26 [place] 10/325 PO 1 tab Q4H PRN Administration pain 1 - 10. Albuterol 1 ampul 01/17/18 19:00 01/29/18 09:29 Duoneb Neb (Prn) NEB 1 ampul Q2HR NEB PRN Administration WHEEZING Fentanyl 2 patch 01/28/18 20:00 01/28/18 19:25 Durages[place] 50 Mcg Patch.72hr T-DERMAL 2 patch Q3D KATIE Administration Lorazepam 1 mg 01/26/18 12:27 10/12/18 18:45 Ativan PO 1 mg Q4H PRN Administration ANXIETY Ondansetron HCl 4 mg 01/17/18 18:00 01/23/18 09:43 Zofran Inj IV.PUSH 4 mg Q6H PRN Administration NAUSEA OR VOMITING Pantoprazole Sodium 40 mg 01/23/18 10:00 01/29/18 09:26 Protonix Inj IV.PUSH 40 mg Q12H KATIE Administration Prednisone 20 mg 01/28/18 21:00 01/29/18 09:26 Deltasone PO 20 mg BID KATIE Administration Senna/Docusate Sodium 1 tab 01/17/18 21:00 01/29/18 09:26 [place]ace PO 1 tab BID KATIE Administration Sodium Chloride 2 ml 01/22/18 09:00 01/28/18 22:22 Ns Flush IV.FLUSH 2 ml BID KATIE Administration Objective Remarks: GENERAL: Chronically ill-appearing male patient, in no acute distress. SKIN: Warm and dry. Multiple nodules to left chest and left arm. Left arm with hardened skin s/p radiation. Gauze dressing intact to left arm. HEAD: Normocephalic. EYES: No scleral icterus. No injection or drainage. NECK: Supple, trachea midline. CARDIOVASCULAR: Regular rate and rhythm without murmurs. RESPIRATORY: Breath sounds equal bilaterally. Scattered rhonchi to right lobes, mild expiratory wheezes. No accessory muscle use. Left chest tube, draining yellow clear fluid. GASTROINTESTINAL: Abdomen soft, non-tender, nondistended. EXTREMITIES: No cyanosis. LUE 1+pitting edema. BLE 1+pitting edema. MUSCULOSKELETAL: Adequate muscle tone. NEUROLOGICAL: No obvious focal deficit. Awake, alert, and oriented x3. PSYCHIATRIC: Appropriate mood and affect; insight and judgment normal. Assessment/Plan - Plan Mr. 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 The patient was recently hospitalized with ongoing GI bleeds requiring numerous blood transfusions. Chemotherapy and radiation were on hold. The patient desired continued aggressive treatment. He was discharged to a SNF and represented to the emergency department with increasing shortness of breath. Patient was found to be anemic with a hemoglobin of 5.9. He received multiple blood transfusions, has underwent multiple GI procedures. Oncology was consulted for his history of metastatic SCC. Plan: 1. Further chemotherapy for squamous cell carcinoma currently on hold due to repeated GI bleeding and poor performance status. 2. Hemoglobin and platelets trending down. Hemoglobin 8.2 today and platelets 26,000. No evidence of bleeding. Will transfuse one unit of platelets today. Repeat CBC in the a.m. 3. Confusion, patient states he has felt a loss for words the past few days. We will order CT brain stat. No other neurological findings on exam. 4. Discussed with RN. - Attending Statement The exam, history, and the medical decision-making described in the above note were completed with the assistance of the mid-level provider. I reviewed and agree with the findings presented. I attest that I had a [id number] encounter with the patient on the same day, and personally performed and documented my assessment and findings in the medical record. Patient is still feeling weak. He feels confused this morning. No obvious bleeding noted. Hemoglobin trended down to 8.2. We will give him 1 unit of platelet transfusion. Will get CT of the head for further evaluation.
[2018-01-29] MEDS ORDERED: Acetaminophen 325 MG Tablet PO PRN (12:31)
[2018-01-29] MEDS: Sodium Chloride 0.9% 2 ML Flush BID IV.FLUSH SCH ×2 (12:37→21:34)
[2018-01-29] MEDS: HYDROmorphone PF Inj 2 MG/ML Vial IV.PUSH PRN (12:38)
[2018-01-29] MEDS ORDERED: Sodium Chlor 0.9% Inj 250 ML IV.SIG SCH (13:00)
--- NOTE | 2018-01-29 17:15 | P.PN ---
Subjective Interval history: ALERT NAD CT DRAINAGE 20 CC LAST SHIFT Physical Exam Vital signs: Vital Signs 01/28/18 17:45 01/28/18 20:00 01/28/18 23:12 Temperature 97.5 F L Pulse Rate 106 H 103 H Respiratory Rate 20 20 27 H Blood Pressure 139/65 Pulse Oximetry 96 01/28/18 23:13 01/29/18 00:00 01/29/18 03:33 Temperature 97.8 F Pulse Rate 92 H 125 H Respiratory Rate 18 35 H Blood Pressure 113/60 Pulse Oximetry 98 96 01/29/18 03:49 01/29/18 08:00 01/29/18 09:26 Temperature 97.4 F L 97.7 F Pulse Rate 96 H 120 H Respiratory Rate 20 18 20 Blood Pressure 133/81 105/59 L Pulse Oximetry 95 94 L 01/29/18 09:33 01/29/18 12:00 01/29/18 13:10 Temperature 97.6 F Pulse Rate 90 127 H Respiratory Rate 18 18 Blood Pressure 102/68 Pulse Oximetry 95 95 01/29/18 15:09 01/29/18 16:28 Temperature 98.1 F Pulse Rate 109 H Respiratory Rate 18 18 Blood Pressure 119/74 Pulse Oximetry 97 Intake & Output 01/28/18 01/29/18 01/29/18 18:59 06:59 18:59 Intake Total 960 / 960 240 / 240 0 / 0 Output Total 290 / 290 100 / 100 Balance 670 / 670 140 / 140 0 / 0 Weight 89.5 kg Intake: Oral 960 / 960 240 / 240 Intake (Blood Product) Amt 0 / 0 Plt Pheresis A Leukoreduced 0 / 0 Unit [id number] Output: Urine 200 / 200 100 / 100 Chest Tube Drainage 90 / 90 #1 Left 90 / 90 Other: Date of Last Bowel Movement 01/25/18 01/25/18 Narrative: General: NAD, AAOx3 Chest: decreased air movement x b/l left chest tube Cardiac: Regular Abd: +BS, soft ND/NT Ext: Left arm lymphedema/swelling and metastatic nodules on left arm/chest and abdomen wall. Results - Labs CBC & Chem 7: 01/29/18 05:00 01/29/18 05:00 Laboratory Results - last 24 hr 01/20/18 01/29/18 01/29/18 11:00 05:00 05:00 WBC 2.8 L RBC 2.62 L Hgb 8.2 L Hct 23.9 L MCV 91.3 MCH 31.4 MCHC 34.4 RDW 16.2 Plt Count 26 L D MPV 7.1 Prelim Diff (Auto) Slide review pending Neut % (Auto) 90.1 H Lymph % (Auto) 4.3 L [place] % (Auto) 5.3 Eos % (Auto) 0.0 Baso % (Auto) 0.3 Neut # (Auto) 2.5 Lymph # (Auto) 0.1 L [place] # (Auto) 0.1 Eos # (Auto) 0.0 Baso # (Auto) 0.0 WBC Differential . Diff Scan Auto diff confirmed Differential Comment . Platelet Estimate Low L Platelet Morphology Normal Ovalocytes 1+ H Sodium 141 Potassium 3.8 Chloride 101 Carbon Dioxide 30.1 Anion Gap 10 BUN 20 H Creatinine 0.60 Estimated GFR Greater than 89 Random Glucose 122 H Calcium 7.5 L Total Bilirubin 0.5 AST 36 ALT 15 Alkaline Phosphatase 43 L Total Protein 4.3 L Albumin 1.7 L MTS Gel Crossmatch See Detail Bld Prod Order Comment 01/29/18 12:35 WBC RBC Hgb Hct MCV MCH MCHC RDW Plt Count MPV Prelim Diff (Auto) Neut % (Auto) Lymph % (Auto) [place] % (Auto) Eos % (Auto) Baso % (Auto) Neut # (Auto) Lymph # (Auto) [place] # (Auto) Eos # (Auto) Baso # (Auto) WBC Differential Diff Scan Differential Comment Platelet Estimate Platelet Morphology Ovalocytes Sodium Potassium Chloride Carbon Dioxide Anion Gap BUN Creatinine Estimated GFR Random Glucose Calcium Total Bilirubin AST ALT Alkaline Phosphatase Total Protein Albumin MTS Gel Crossmatch Bld Prod Order Comment Assessment and Plan - Plan LEFT PLEURAL EFFUSION METASTATIC NCCLC CT DRAINAGE MARKEDLY REDUCED LAST 2 DAYS PLAN O2 BRONCHODILATOR THERAPY PLEURODESIS BEFORE REMOVING TUBE
--- NOTE | 2018-01-29 19:33 | P.PNIM ---
Subjective Interval history: Pt agrees and will meet with hospice Wednesday. Pt reports that he slept most of the day. Physical Exam Vital signs: 01/29/18 15:09 01/29/18 16:28 01/29/18 17:21 Temperature 98.1 F Pulse Rate 109 H Respiratory Rate 18 18 18 Blood Pressure 119/74 Pulse Oximetry 97 Narrative: General: NAD, AAOx3 Chest: decreased air movement x b/l left chest tube Cardiac: Regular Abd: +BS, soft ND/NT Ext: Left arm lymphedema/swelling and metastatic nodules on left arm/chest and abdomen wall. Results - Labs CBC & Chem 7: 01/30/18 05:15 01/29/18 05:00 Assessment and Plan - Assessment (1) Metastatic squamous cell carcinoma Code(s): C79.9 - Secondary malignant neoplasm of unspecified site Status: Acute Plan: Stage IV metastatic SCC undergoing chemo and XRT metastatic disease involving left arm/lymphedema, left chest/abdomen wall - Chemotherapy and radiation are on hold - Pt remains aggressive and wants therapy. - Pt with severe left arm pain from lymphedema/tumor/ulceration - Cont. prn [place]. - Morphine not working. Dilaudid PRN. Discussed bp limitations - Also addressed code status and comfort care. He desires continued aggressive approach and full code. Acute on chronic anemia. acute blood loss from gib. gastric and duodenal ulcerations etoh abuse - Pt is 72 yo with stage 4 metastatic SCC felt to be lung primary. Had been undergoing chemoradiation. Pt has had multiple admissions recently for etoh abuse, acute gib, and pain and ulceration/cellulitis of left arm. Pt was just discharged this past weekend to snf after being admitted to ICU for acute GIB and hypotension. That admission was from 01/02 until 01/15. - Pt underwent EGD (01/03/18) --> the esophagus appeared to be unremarkable and within normal limits. small hiatal hernia with a linear ulceration in the gastric cardia possibly representing a Romie ulcer, no visible vessel, no active bleeding, but in the duodenum there were multiple ulcerations noted in the duodenal bulb and the descending duodenum most were superficial and clean based one was actively bleeding just distal to the ampulla a small vessel was noted and so a clip was placed and no further bleeding was noted biopsies were taken from the ulcer sites - Pt underwent repeat EGD (01/08/18) --> Mild gastritis and two duodenal ulcers with active bleeding s/p clipping. - Pt required blood transfusions of 12 units of PRBCs from 01/02-01/15 admission. He underwent bleeding scan on 01/14 negative for bleeding and so was sent to snf. - During the last hospitalization he was also treated for afib with rvr and copd exacerbations. - Pt presented back to the ED at [facility] [place] on 01/17/18 with complaints of SOB and left arm pain. Hgb noted to be 5 again. ED ordered 3 units blood. - Pt underwent repeat EGD 01/18/18 which noted bleeding ulcers. Pt then underwent successful GDA embolization in IR 01/18/18 - Pt received s/p 3 units prbc 01/17 - Repeat H/H on 01/20 with again a decreased Hgb to 6.7 - Pt to be transfused with another 2 units PRBCs on 01/20/18. No noted active GIB. ordered a unit if Platelets as well. - Hg 7.9 (01/25), 8.0 (01/26), 8.9 (01/28) - severe heartburn. - iv ppi and maalox. Pt likely will have ongoing blood loss - fentanyl transdermal, increase to 100mcg (01/28/18) - norco 10mg q4h prn - decrease IV Dilaudid to 0.5mg q6h prn for breakthrough pain. - Pt does NOT want to return to SNF - Pain control is very important to pt. - Pt and to meet with Hospice together on Wednesday - Pt requests DNR code status. I agree. COPD -pt with copd exacerbation cont nebs - solumedrol --> change to PO prednisone (01/28) - became acutely sob and moved to ICU on 01/21...improved with iv lasix and diuresis pleural effusion, left - thoracentesis with placement of drainage catheter to pleurovac by Critical Care (01/24) - appreciate input from Dr. Ellis. Case d/w Dr. Ellis (01/25) - repeat CXR (01/25) --> decreased left pleural effusion - pathology: groups of atypical cells suspicious for malignancy - Chest tube output: 20ml overnight, 90 ml so far today. - Talc pleurodesis 01/31/18 - case d/w Oncology, Dr. Mcekon (01/26/18). He will consult. - anticipate d/c to SNF Wednesday/Wednesday AFIB - No anticoagulation due to bleeding. (2) GIB (gastrointestinal bleeding) Code(s): K92.2 - Gastrointestinal hemorrhage, unspecified Status: Acute (3) Gastric ulceration Code(s): K25.9 - Gastric ulcer, unspecified as acute or chronic, without hemorrhage or perforation Status: Acute (4) Duodenal ulceration Code(s): K26.9 - Duodenal ulcer, unspecified as acute or chronic, without hemorrhage or perforation Status: Acute (5) COPD (chronic obstructive pulmonary disease) Code(s): J44.9 - Chronic obstructive pulmonary disease, unspecified Status: Chronic (6) Afib Code(s): I48.91 - Unspecified atrial fibrillation Status: Chronic
[2018-01-29] MEDS: LORazepam 1 MG Tablet PO PRN (20:00)
[2018-01-30 04:14] VITALS: TEMP 97.9
[2018-01-30 06:12] LABS: Baso % (Auto) 0.1 % (0.0-2.0); Eos % (Auto) 0.1 % (0.0-4.0); Hematocrit 21.6 % (39.0-51.0); Hemoglobin 7.5 gm/dL (13.0-17.0); Lymph # (Auto) 0.1 th/mm3 (1.0-4.8); Mean Corpuscular HGB Conc 34.5 % (32.0-36.0); Mean Corpuscular Hemoglobin 31.6 pg (27.0-34.0); Mean Corpuscular Volume 91.4 fL (80.0-100.0); Mean Platelet Volume 7.7 fL (7.0-11.0); Mono # (Auto) 0.1 th/mm3 (0.0-0.9); Mono % (Auto) 3.2 % (0.0-8.0); Neut # (Auto) 2.6 th/mm3 (1.8-7.7); Neut % (Auto) 92.6 % (16.0-70.0); Platelet Count 48 th/mm3 (150-450); Red Blood Count 2.37 mil/mm3 (4.50-5.90); Red Cell Distribution Width 16.4 % (11.6-17.2); White Blood Count 2.8 th/mm3 (4.0-11.0)
[2018-01-30 08:27] VITALS: BP 136/72; O2SAT 93
[2018-01-30 08:49] LABS: Dohle Bodies Present; Lymphocytes 4 % (9-44); Monocytes 3 % (0-8); Platelet Morphology Normal (Normal)
[2018-01-30] MEDS: Pantoprazole Inj 40 MG Vial IV.PUSH SCH (09:29)
[2018-01-30] MEDS: predniSONE 20 MG Tablet PO SCH (09:29)
[2018-01-30] MEDS: Sodium Chloride 0.9% 2 ML Flush BID IV.FLUSH SCH (09:30)
[2018-01-30] MEDS: Senna/Docusate Sodium 8.6/50 MG Tablet PO SCH (09:30)
[2018-01-30] MEDS: HYDROmorphone PF Inj 2 MG/ML Vial IV.PUSH PRN ×2 (11:21→14:46)
[2018-01-30] MEDS ORDERED: HYDROmorphone PF Inj 2 MG/ML Vial IV.PUSH ONE (12:00)
[2018-01-30] MEDS ORDERED: Heparin Central Flush 100 UNIT/ML 5 ML Vial IV.FLUSH PRN (12:07)
--- NOTE | 2018-01-30 12:17 | P.DS ---
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 Had been undergoing chemoradiation. Pt has had multiple admissions recently for etoh abuse, acute gib, and pain and ulceration/cellulitis of left arm. Pt was just discharged this past weekend to snf after being admitted to ICU for acute GIB and hypotension. That admission was from 01/02 until 01/15. Pt underwent EGD on 01/03 )- The esophagus this appeared to be unremarkable and within normal limits - Small hiatal hernia with a linear ulceration in the gastric cardia possibly representing a Romie ulcer, no visible vessel, no active bleeding this was biopsied - The duodenum there were multiple ulcerations noted in the duodenal bulb and the descending duodenum most were superficial and clean based one was actively bleeding just distal to the ampulla a small vessel was noted and so a clip was placed and no further bleeding was noted biopsies were taken from the ulcer sites - Pt underwent repeat EGD (01/08) --> Mild gastritis and two duodenal ulcers with active bleeding s/p clipping. Pt required blood transfusions of 12 units from 01/02-01/15 admission. He underwent bleeding scan on 01/14 negative for bleeding and so was sent to snf. During the last hospitalization he was also treated for afib with rvr and copd exacerbations. Now pt presents back with sob and left arm pain. Hgb noted to be 5 again. ED ordered 3 units blood. PMH: stage 4 metastatic lung SCC to left arm/chest and abdomen wall gastric and duodenal ulcers with gib and acute blood loss anemia as above etoh abuse copd afib. off anticoagulation due to bleeding anxiety hx NSVT SH etoh abuse 1ppd tob x 55yrs FH: [place] Patient update on day of discharge: Patient comfortable but overall status patient continues to decline DS: Diagnosis - Discharge Diagnosis (1) Anemia Status: Acute (2) Metastatic squamous cell carcinoma Status: Acute (3) GIB (gastrointestinal bleeding) Status: Acute DS: Summary Hospital Course: Stage IV metastatic SCC undergoing chemo and XRT metastatic disease involving left arm/lymphedema, left chest/abdomen wall - Chemotherapy and radiation are on hold - Pt remains aggressive and wants therapy. - Pt with severe left arm pain from lymphedema/tumor/ulceration - Cont. prn Shiro. - Morphine not working. Dilaudid PRN. Discussed bp limitations - Also addressed code status and comfort care. He desires continued aggressive approach and full code. Acute on chronic anemia. acute blood loss from gib. gastric and duodenal ulcerations etoh abuse - Pt is 72 yo with stage 4 metastatic SCC felt to be lung primary. Had been undergoing chemoradiation. Pt has had multiple admissions recently for etoh abuse, acute gib, and pain and ulceration/cellulitis of left arm. Pt was just discharged this past weekend to snf after being admitted to ICU for acute GIB and hypotension. That admission was from 01/02 until 01/15. - Pt underwent EGD (01/03/18) --> the esophagus appeared to be unremarkable and within normal limits. small hiatal hernia with a linear ulceration in the gastric cardia possibly representing a Romie ulcer, no visible vessel, no active bleeding, but in the duodenum there were multiple ulcerations noted in the duodenal bulb and the descending duodenum most were superficial and clean based one was actively bleeding just distal to the ampulla a small vessel was noted and so a clip was placed and no further bleeding was noted biopsies were taken from the ulcer sites - Pt underwent repeat EGD (01/08/18) --> Mild gastritis and two duodenal ulcers with active bleeding s/p clipping. - Pt required blood transfusions of 12 units of PRBCs from 01/02-01/15 admission. He underwent bleeding scan on 01/14 negative for bleeding and so was sent to snf. - During the last hospitalization he was also treated for afib with rvr and copd exacerbations. - Pt presented back to the ED at [facility] on 01/17/18 with complaints of SOB and left arm pain. Hgb noted to be 5 again. ED ordered 3 units blood. - Pt underwent repeat EGD 01/18/18 which noted bleeding ulcers. Pt then underwent successful GDA embolization in IR 01/18/18 - Pt received s/p 3 units prbc 01/17 - Repeat H/H on 01/20 with again a decreased Hgb to 6.7 - Pt to be transfused with another 2 units PRBCs on 01/20/18. No noted active GIB. ordered a unit if Platelets as well. - Hg 7.9 (01/25), 8.0 (01/26), 8.9 (01/28) - severe heartburn. - iv ppi and maalox. Pt likely will have ongoing blood loss - fentanyl transdermal, increase to 100mcg (01/28/18) - norco 10mg q4h prn - decrease IV Dilaudid to 0.5mg q6h prn for breakthrough pain. - Pt does NOT want to return to SNF - Pain control is very important to pt. - Pt and to meet with Hospice together on Wednesday - Pt requests DNR code status. Code status has been changed to DNR COPD -pt with copd exacerbation cont nebs - solumedrol --> change to PO prednisone (01/28) - became acutely sob and moved to ICU on 01/21...improved with iv lasix and diuresis pleural effusion, left - thoracentesis with placement of drainage catheter to pleurovac by Critical Care (01/24) - appreciate input from Dr. Ellis. Case d/w Dr. Ellis (01/25) - repeat CXR (01/25) --> decreased left pleural effusion - pathology: groups of atypical cells suspicious for malignancy - Chest tube in place and draining - case d/w Oncology, Dr. Mckeon (01/26/18). He will consult. AFIB - No anticoagulation due to bleeding. Patient's status continues to decline. Patient and met with Hospice today and would like to transition goals of care to comfort. Patient and would like to be DC's to Hospice care center. - Time Spent with Patient Total time spent providing and/or coordinating discharge services: Greater than 30 minutes - Quality: VTE Deep Vein Thrombosis/Pulmonary Embolism Present on Admission: No Exam Vital signs: Vital Signs 01/29/18 13:10 01/29/18 15:00 01/29/18 15:09 Temperature Pulse Rate Respiratory Rate 18 18 18 Blood Pressure Pulse Oximetry 01/29/18 16:28 01/29/18 17:21 01/29/18 18:01 Temperature 98.1 F Pulse Rate 109 H 92 H Respiratory Rate 18 18 24 Blood Pressure 119/74 Pulse Oximetry 97 01/29/18 18:10 01/29/18 19:59 01/29/18 20:00 Temperature 98.1 F 98.3 F Pulse Rate 112 H 111 H Respiratory Rate 20 15 17 Blood Pressure 107/59 L 113/64 Pulse Oximetry 97 95 01/29/18 20:07 01/30/18 00:00 01/30/18 01:43 Temperature 97.8 F Pulse Rate 112 H 107 H Respiratory Rate 20 15 16 Blood Pressure 109/60 Pulse Oximetry 95 96 01/30/18 03:00 01/30/18 04:00 01/30/18 05:47 Temperature 97.9 F Pulse Rate 99 H Respiratory Rate 16 18 18 Blood Pressure 119/65 Pulse Oximetry 97 01/30/18 06:18 01/30/18 08:24 Temperature Pulse Rate 115 H Respiratory Rate 18 22 Blood Pressure 136/72 Pulse Oximetry 93 L Intake & Output 01/29/18 01/30/18 01/30/18 18:59 06:59 18:59 Intake Total 0 / 0 480 / 480 Output Total 85 / 85 370 / 370 Balance -85 / -85 110 / 110 Weight 87 kg Intake: Oral 480 / 480 Intake (Blood Product) Amt 0 / 0 Plt Pheresis A Leukoreduced 0 / 0 Unit [id number] Output: Urine 350 / 350 Chest Tube Drainage 85 / 85 20 / 20 #1 Left 85 / 85 20 / 20 Other: Date of Last Bowel Movement 01/25/18 01/29/18 Narrative: General: NAD, AAOx3 Chest: decreased air movement x b/l left chest tube Cardiac: Regular Abd: +BS, soft ND/NT Ext: Left arm lymphedema/swelling and metastatic nodules on left arm/chest and abdomen wall. Results Procedures completed during hospitalization: - Pt underwent repeat EGD 01/18/18 which noted bleeding ulcers. Pt then underwent successful GDA embolization in IR 01/18/18 - thoracentesis with placement of drainage catheter to pleurovac by Critical Care (01/24) Labs on day of discharge: Labs from last 24 hours 01/30/18 01/29/18 01/20/18 05:15 12:35 11:00 WBC 2.8 L RBC 2.37 L Hgb 7.5 L Hct 21.6 L MCV 91.4 MCH 31.6 MCHC 34.5 RDW 16.4 Plt Count 48 L D MPV 7.7 Prelim Diff (Auto) Slide review pending Neut % (Auto) 92.6 H Lymph % (Auto) 4.0 L [place] % (Auto) 3.2 Eos % (Auto) 0.1 Baso % (Auto) 0.1 Neut # (Auto) 2.6 Lymph # (Auto) 0.1 L [place] # (Auto) 0.1 Eos # (Auto) 0.0 Baso # (Auto) 0.0 WBC Differential Manual diff final Seg Neuts % (Manual) 79 H Band Neuts % (Manual) 14 H Lymphocytes % (Manual) 4 L Monocytes % (Manual) 3 Abs Neuts (Manual) 2.6 Differential Comment . Dohle Bodies Present H Platelet Estimate Low L Platelet Morphology Normal MTS Gel Crossmatch See Detail Bld Prod Order Comment - Impressions ITS Impressions Chest CTA 01/17/18 14:42 CONCLUSION: 1. No evidence of pulmonary embolism. 2. Moderate-sized left pleural effusion and tiny right pleural effusion. 3. Bibasilar atelectasis and/or infiltrates. 4. Left axillary mass is stable. 5. Diffuse edema is noted throughout the left chest wall. 6. At least 2 ribs on the left (first and fourth) are sclerotic raising the possibility of metastatic disease. 7. Coronary artery calcifications. 8. Degenerative changes throughout the thoracic spine. Abdomen Arteriogram 01/18/18 00:00 CONCLUSION: 1. Uncomplicated embolization of the gastroduodenal artery Chest X-Ray 01/25/18 08:00 CONCLUSION: 1. Improving atelectasis in the right upper lung. 2. Stable atelectasis in the left lung base. 3. Stable elevation right hemidiaphragm. 4. No other new or significant changes. Videofluoroscopic Swallow 01/27/18 00:00 CONCLUSION: 1. Speech barium swallow, as above. <Zaheer Murcia - Last Filed: 02/04/18 09:08> Date of admission: 01/17/18 17:50 Primary care physician: Ryley Rodgers MD DS: Diagnosis - Discharge Diagnosis (1) Metastatic squamous cell carcinoma Status: Acute (2) GIB (gastrointestinal bleeding) Status: Acute (3) Gastric ulceration Status: Acute (4) Duodenal ulceration Status: Acute (5) COPD (chronic obstructive pulmonary disease) Status: Chronic (6) Afib Status: Chronic DS: Summary Hospital Course: Patient examined. Assessment and plan formulated with Melody Salguero PA-C. I agree with the above. - Time Spent with Patient Total time spent providing and/or coordinating discharge services: Greater than 30 minutes Results Labs on day of discharge: Preliminary micro results at discharge 01/24/18 17:15 Fungal Culture - Preliminary Fluid - Pleural fluid No growth in 1 week - Impressions ITS Impressions Chest CTA 01/17/18 14:42 CONCLUSION: 1. No evidence of pulmonary embolism. 2. Moderate-sized left pleural effusion and tiny right pleural effusion. 3. Bibasilar atelectasis and/or infiltrates. 4. Left axillary mass is stable. 5. Diffuse edema is noted throughout the left chest wall. 6. At least 2 ribs on the left (first and fourth) are sclerotic raising the possibility of metastatic disease. 7. Coronary artery calcifications. 8. Degenerative changes throughout the thoracic spine. Abdomen Arteriogram 01/18/18 00:00 CONCLUSION: 1. Uncomplicated embolization of the gastroduodenal artery Chest X-Ray 01/25/18 08:00 CONCLUSION: 1. Improving atelectasis in the right upper lung. 2. Stable atelectasis in the left lung base. 3. Stable elevation right hemidiaphragm. 4. No other new or significant changes. Videofluoroscopic Swallow 01/27/18 00:00 CONCLUSION: 1. Speech barium swallow, as above. Discharge Plan - Discharge Order Discharge Orders: Discharge Order (Routine); Ordered 01/30/18 Ordered By: Melody Salguero - Discharge Details Anticipated Discharge Date: 01/30/18 - Physicians Team Primary Care Provider: Ryley Rodgers Attending Provider: Milan Bazzi Other Providers: Carlos Wilder MD ; Kartik Cole ; Concha Drake MD ; Caleb Ellis MD ; Solo Mckeon MD
[2018-01-30 14:13] VITALS: PULSE 112; RESP 30
--- NOTE | 2018-01-30 14:53 | P.PN ---
Subjective Interval history: alert no sob minimal ct drainag Physical Exam Vital signs: Vital Signs 01/29/18 15:00 01/29/18 15:09 01/29/18 16:28 Temperature 98.1 F Pulse Rate 109 H Respiratory Rate 18 18 18 Blood Pressure 119/74 Pulse Oximetry 97 01/29/18 17:21 01/29/18 18:01 01/29/18 18:10 Temperature 98.1 F Pulse Rate 92 H 112 H Respiratory Rate 18 24 20 Blood Pressure 107/59 L Pulse Oximetry 97 01/29/18 19:59 01/29/18 20:00 01/29/18 20:07 Temperature 98.3 F Pulse Rate 111 H 112 H Respiratory Rate 15 17 20 Blood Pressure 113/64 Pulse Oximetry 95 95 01/30/18 00:00 01/30/18 01:43 01/30/18 03:00 Temperature 97.8 F Pulse Rate 107 H Respiratory Rate 15 16 16 Blood Pressure 109/60 Pulse Oximetry 96 01/30/18 04:00 01/30/18 05:47 01/30/18 06:18 Temperature 97.9 F Pulse Rate 99 H Respiratory Rate 18 18 18 Blood Pressure 119/65 Pulse Oximetry 97 01/30/18 08:24 01/30/18 14:12 Temperature Pulse Rate 115 H 112 H Respiratory Rate 22 30 H Blood Pressure 136/72 Pulse Oximetry 93 L Intake & Output 01/29/18 01/30/18 01/30/18 18:59 06:59 18:59 Intake Total 0 / 0 480 / 480 480 / 480 Output Total 85 / 85 370 / 370 50 / 50 Balance -85 / -85 110 / 110 430 / 430 Weight 87 kg Intake: Oral 480 / 480 480 / 480 Intake (Blood Product) Amt 0 / 0 Plt Pheresis A Leukoreduced 0 / 0 Unit [id number] Output: Urine 350 / 350 Chest Tube Drainage 85 / 85 20 / 20 50 / 50 #1 Left 85 / 85 20 / 20 50 / 50 Other: # Voids 3 Date of Last Bowel Movement 01/25/18 01/29/18 01/30/18 Narrative: General: NAD, AAOx3 Chest: decreased air movement x b/l left chest tube Cardiac: Regular Abd: +BS, soft ND/NT Ext: Left arm lymphedema/swelling and metastatic nodules on left arm/chest and abdomen wall. Results - Labs CBC & Chem 7: 01/30/18 05:15 01/29/18 05:00 Laboratory Results - last 24 hr 01/20/18 01/29/18 01/30/18 11:00 12:35 05:15 WBC 2.8 L RBC 2.37 L Hgb 7.5 L Hct 21.6 L MCV 91.4 MCH 31.6 MCHC 34.5 RDW 16.4 Plt Count 48 L D MPV 7.7 Prelim Diff (Auto) Slide review pending Neut % (Auto) 92.6 H Lymph % (Auto) 4.0 L [place] % (Auto) 3.2 Eos % (Auto) 0.1 Baso % (Auto) 0.1 Neut # (Auto) 2.6 Lymph # (Auto) 0.1 L [place] # (Auto) 0.1 Eos # (Auto) 0.0 Baso # (Auto) 0.0 WBC Differential Manual diff final Seg Neuts % (Manual) 79 H Band Neuts % (Manual) 14 H Lymphocytes % (Manual) 4 L Monocytes % (Manual) 3 Abs Neuts (Manual) 2.6 Differential Comment . Dohle Bodies Present H Platelet Estimate Low L Platelet Morphology Normal MTS Gel Crossmatch See Detail Bld Prod Order Comment - Procedures - Pt underwent repeat EGD 01/18/18 which noted bleeding ulcers. Pt then underwent successful GDA embolization in IR 01/18/18 - thoracentesis with placement of drainage catheter to pleurovac by Critical Care (01/24) Assessment and Plan - Plan LEFT PLEURAL EFFUSION METASTATIC [facility] CT DRAINAGE MARKEDLY REDUCED LAST 2 DAYS PLAN O2 BRONCHODILATOR THERAPY going to po hospice will need OP F/U FOR PLEURODESIS
== END 2018-01-30 15:00 | disposition hospice, inpatient (51) ==
LOC: NEPE 14:28 → NEDA 17:50 → N04 18:30 → HIMC 01-21 16:20 → HCIS 01-26 15:23 → HCIN 01-28 19:02
PROVIDERS: ADMIT Hospitalist; ATTEND Hospitalist
PROC: PANENDO (2018-01-18 11:53)